=== PATIENT | male | born 1995 | race Caucasian/White ===

== ENCOUNTER 2024-07-26 05:20 | Inpatient (IN) | payer SELFPAY ==
[2024-07-26] VITALS (18 sets, daily range): BP systolic 97–136; BP diastolic 51–97; PULSE 97–120; RESP 13–30; TEMP 36.6–37.4; O2SAT 97–100; BMI 24.3
--- NOTE | 2024-07-26 07:05 | RAD_ITS ---
INDICATION: DYSPNEA EXAMINATION/TECHNIQUE: X-RAY - XR Chest 1 View AP portable. 7:01 AM COMPARISON: No relevant prior comparison study available FINDINGS: LINES/DEVICES: None. LUNGS: No consolidation. No pneumothorax. MEDIASTINUM: Unremarkable. CARDIAC SILHOUETTE: Not enlarged. BONES AND SOFT TISSUES: No acute abnormalities. RAD/Chest 1 View IMPRESSION: No evidence of active intrathoracic disease. Electronically Signed: Wanda Maki MD at 7:53 EST ,
--- NOTE | 2024-07-26 07:38 | HP.PCM.HOS_ITS ---
HPI - General General Date of Admission: 07/26/24 Date of Service: 07/26/24 Chief Complaint: Vomiting, abdominal pain, DKA HPI Narrative MONAE GARCÍA, is a 29 M came to ED with vomiting for 3 days and also abdominal pain for some time today. I could not get history from himself as patient had gotten Ativan for agitation and he is somnolent and hardly opens eyes. As per ED physician, he ran out of the insulin 3 weeks ago. Then started vomiting probably bilious as greenish stain on the gown. He was also very irritable and pulled out his IV line on the left forearm therefore he got Ativan 1 mg. Currently he is getting IV fluid normal saline. When patient came to ED there was downtime therefore handwritten papers were reviewed Vitals checked, heart rate 123/min, RR 30/min, pulse ox 100%, weight 79.2 kg, height 6'.1 Labs reviewed and discussed in assessment plan. Social history, family history could not be obtained because patient is somnolent [facility] Medical History (Updated 07/26/24 @ 07:[address] Basil Escobar MD) Type 1 diabetes ROS ROS Narrative 14 system ROS unobtainable as patient is encephalopathic after getting Ativan Review of Systems ROS Unobtainable: due to encephalopathy Vital Signs Vital Signs Vital Signs: General: Somnolent, irritable, few words that he is thirsty HEENT: Atraumatic, eyes closed, normocephalic Oral: Oral mucosa very dry. No Gingival or Mucosal Lesions/ Ulcerations Neck: supple, No JVD, Negative Carotid Bruits Chest wall/Lungs: Air entry diminished in bilateral lung bases. No crepitation /rhonchi Cardiovascular: Sinus tachycardia, Normal S1, Normal S2, No M/G/R Abdomen: Bowel Sounds sluggish, Soft, Non Tender, Non-Distended : No dysuria. No renal angle tenderness. No suprapubic tenderness. Extremities: No edema, Capillary Refill Less than 3 Seconds Skin: No rashes, No breakdown Musculoskeletal: No Tenderness to Palpation of Joints or Extremities Neurological: Neuroexam unobtainable DTR 2+/4. Psych/Mental Status: Somnolent Assessment & Plan Assessment/Plan (1) DKA (diabetic ketoacidosis): (2) Type 1 diabetes: PLAN: Plan This is a 29-year-old gentleman who is being admitted for management of DKA 1. DKA with history of type 1 diabetes mellitus: Patient is being admitted in ICU. Labs reviewed. Anion gap 32, bicarb 8. IV fluid normal saline as per DKA protocol. Insulin drip continue. Managed the Accu-Chek before meals and at bedtime with Humalog sliding scale coverage and hypoglycemia protocol. Titration as per DKA protocol/nomogram. Monitor intake and output. BMP q. 4 hourly. 2. High anion gap metabolic acidosis due to DKA: VBG was done. 6.9 //105. Bicarb in BMP 8. Repeat ABG ordered to see actual pH and whether he needs bicarb drip. Serum acetone large. EtOH less than 3. 3. Hyperkalemia due to DKA: Potassium 6.1. Repeat BMP 4. Hypertonic hypovolemic hyponatremia: Patient is very dehydrated. Sodium 128 due to high blood sugar, glucose in BMP was 914. IV fluid rehydration. 5. Kidney dysfunction suspected ZAHIDA: BUN/creatinine 46/2.97. Calcium 9.7. No previous BUNs/creatinine available. IV fluid rehydration. DVT prophylaxis, moderate risk due to severity of illness DKA: Lovenox 40 mg subcu daily CODE STATUS unverified Charges/Coding Visit Charges Inpatient E&M: 68322 Init Hosp L3
--- NOTE | 2024-07-26 07:38 | EKG12_ITS ---
Test Reason : DKA Blood Pressure : */* mmHG Vent. Rate : 122 BPM Atrial Rate : 122 BPM P-R Int : 142 ms QRS Dur : 120 ms QT Int : 332 ms P-R-T Axes : 71 89 63 degrees QTcB Int : 473 ms Sinus tachycardia Non-specific intra-ventricular conduction delay Borderline ECG Confirmed by Thang Mathew ([id number]), school photograph editor SHERRY PATIÑO ([id number]) on 07/27/2024 11:09:06 AM Referred By: Confirmed By: Thang Mathew
--- NOTE | 2024-07-26 07:41 | EX.ED.DYSGE1 ---
HPI History of Present Illness Informant: patient Narrative Narrative: 29-year-old type I diabetic presenting to the emergency room with vomiting and abdominal pain. Patient states that about a week ago he ran out of his insulin. He states he has a small vial that he has been using sparingly. About 3 days ago he began to have vomiting and abdominal spasms on the left upper abdomen. No reported fevers. He states that he was in DKA earlier this year was admitted to [facility] Medical History (Updated 07/26/24 @ 07:[address] Eloy Allen, DO) Type 1 diabetes ROS ROS ED Constitutional Constitutional ED: Reports sweats; Denies chills or weight loss Eyes Eyes: Denies change in vision or diplopia ENT ENT ED: Denies ear pain, rhinorrhea or sore throat Cardiovascular Cardiovascular: Reports racing heartbeat; Denies chest pain, orthopnea or palpitations Respiratory/Chest Respiratory/Chest: Reports dyspnea; Denies cough or orthopnea Gastrointestinal Gastrointestinal: Reports abdominal pain, nausea and vomiting; Denies diarrhea Genitourinary Genitourinary ED: Denies dysuria, hematuria or urinary frequency Musculoskeletal Musculoskeletal: Denies arthralgias or myalgias Integumentary Denies abscess or rash Neurologic Neurologic: Denies headache(s) or weakness Psychiatric Psychiatric: Denies anxiety, depression, suicidal ideation or suicidal thoughts Endocrine Endocrinology: Denies polydipsia, polyphagia or polyuria Allergic/Immunologic Allergic/Immunologic ED: Denies mouth swelling, tongue swelling or urticaria EXAM Physical Exam Const Positive well nourished and well developed General Appearance ED: well developed HEENT Reports normocephalic, head/scalp atraumatic and dry mucous membranes Mouth ED: Yes dry mucous membranes Mouth: dry mucous membranes Eyes PERRL and EOMs intact bilaterally Neck no lymphadenopathy, supple and no JVD Resp clear to auscultation bilaterally Resp Narrative: Patient has noted to be tachypneic Cardio regular rate, regular rhythm and no murmurs Rate: tachycardic GI Inspection: Negative for abdominal distention Auscultation: normoactive bowel sounds Palpation: soft, tender epigastric and LUQ and guarding; Negative for rebound tenderness present Back/Spine no CVA tenderness and normal ROM Extremity normal to inspection General Extremety ED: Negative for edema General Extremity: Negative for edema Neuro oriented x3 and CN's II-XII intact bilaterally Sensorium / Orientation: alert Motor Exam: strength 5/5 throughout Psych mental status grossly normal Mood & Affect: Negative for depressed or tearful Skin no rashes or lesions noted and no wounds MDM MDM MDM Narrative Medical decision making narrative: Differential diagnosis includes but not limited to is DKA dehydration electrolyte abnormality anemia septicemia/bacteremia kidney dysfunction cardiac dysrhythmia Patient's EKG is a sinus tachycardia at a rate of 122 bpm. My independent interpretation of the chest x-ray is no acute process. A VBG was obtained which shows a pH of 6.993 bicarbonate of 5.4 PaCO2 24 PaO2 105.4. Potassium 6.1 sodium 128 chloride 88 CO2 of 8 glucose 914. White count 29.09 hemoglobin 16.6 platelet count of 532 large acetone on blood examination. Lipase is 93 creatinine 2.97 with a BUN of 46. Patient received a total of 3 L IV fluid boluses followed by starting of an insulin drip. I am going to speak with the hospitalist regarding admission History & Record Review Discussion w/independent historian: Patient Critical Care Time Critical Care Time: Yes Critical care time (excluding procedures): 30-74 minutes (35 min), Including time spent:, Discussing w/Patient &/or Family/Title Agent, Discussing w/Consultants, Arranging Admission or Transfer and Performing Direct Patient Care at Bedside Discharge Plan Dx/Rx/DC Orders Clinical Impression: DKA (diabetic ketoacidosis), ZAHIDA (acute kidney injury), Abdominal pain, Acute dehydration Disposition Disposition: Acute Care [facility]
[2024-07-26 08:04] LABS: Absolute Lymphocyte Count 1.35 X10^3/uL (0.83-4.51); Absolute Neutrophil Count 25.2 X10^3/uL (2.0-7.7); Basophil# 0.23 X10^3/uL; Basophil% 0.8 % (0-1); Eosinophil# 0.05 X10^3/uL; Eosinophils% 0.2 % (0-5); Hematocrit 51.2 % (40-54); Hemoglobin 16.7 g/dL (13.0-16.5); Lymphocyte # 1.35 X10^3/ul (0.83-4.51); Lymphocyte % 4.6 % (19-41); Mean Corp Hgb Conc 32.6 g/dL (32-36); Mean Corpuscular Hgb 29.9 pg (27.0-32.0); Mean Corpuscular Volume 91.6 fL (80-94); Mean Platelet Vol. 10.2 fl (6.2-12.0); Monocyte# 1.94 X10^3/uL; Monocyte% 6.6 % (0-10); NRBC Flagged by Analyzer 0 % (0-5); Neutrophil # 25.19 X10^3/uL (2.7-7.7); Neutrophil % 86.1 % (47-70); POSITIVE DIFFERENTIAL YES; Platelet Count 533 K/mm3 (150-450); RBC Distribution Width CV 12.1 % (11.6-14.6); RBC Distribution Width SD 40.8 fl (35.1-43.9); Red Blood Count 5.59 M/mm3 (4.6-6.2); White Blood Count 29.3 K/mm3 (4.4-11.0)
[2024-07-26 08:05] LABS: Differential Indicated SCAN CRITERIA MET
[2024-07-26 08:40] LABS: Bedside Glucose > 500 mg/dL (74-106)
[2024-07-26 09:32] LABS: Base Excess -22 mmol/L (-2 to +2); Blood Gas Specimen Type ART; Mode Not entered; O2 Delivery Device Not entered; PO2 127 mmHG (75-100); SITE L Brach; SO2 98 % (95-99); Total Carbon Dioxide 8 mmol/L; pCO2 19.5 mmHg (35-45); pH 7.16 (7.35-7.45)
[2024-07-26 09:39] LABS: Glucose 830 mg/dL (74-106)
[2024-07-26 09:52] LABS: Alcohol, Blood (Medical)-Serum < 3.0 mg/dL
[2024-07-26 10:00] LABS: AST(SGOT) 19 U/L (15-37); Alanine Aminotransfer ALT/SGPT 30 U/L (16-61); Albumin, Serum 4.1 g/dL (3.2-5.0); Alkaline Phosphatase 127 U/L (45-117); Anion Gap 32 (5-15); BUN 46 mg/dL (7-18); BUN/Creat Ratio 15.5 RATIO (10-20); Bilirubin, Direct 0.19 mg/dL (0.00-0.30); Calcium,Total 9.7 mg/dL (8.5-10.1); Chloride 88 mmol/L (98-107); Cholesterol 183 mg/dL (200); Creatinine, Serum 2.97 mg/dL (0.70-1.30); EST Glomerular Filtration Rate 27 mL/min (>60); Est Glom Filt Rate - Afr Amer 33 mL/min (>60); Estimated Creatinine Clearance 40.28 ml/min; Glucose 914 mg/dL (74-106); High Density Lipoprotein 65 mg/dL; Lipase 93 U/L (13-75); Potassium 6.1 mmol/L (3.5-5.1); Protein, Total 8.1 g/dL (6.4-8.2); Sodium Level 128 mmol/L (136-145); Triglycerides 168 mg/dL; Very Low Density Lipoprotein 34 mg/dL (5-40)
[2024-07-26] MEDS: 0.9% Normal Saline (1000mL) 1,000 ML 500 ML IV (10:09)
[2024-07-26] MEDS: Insulin Lispro 100 UNIT in 0.9% Normal Saline (100mL Bag) 99 ML 7.9 UNIT CONT INF (10:24)
[2024-07-26 10:36] LABS: AST(SGOT) 18 U/L (15-37); Alanine Aminotransfer ALT/SGPT 27 U/L (16-61); Albumin, Serum 3.5 g/dL (3.2-5.0); Alkaline Phosphatase 106 U/L (45-117); Anion Gap 26 (5-15); BUN 50 mg/dL (7-18); Bilirubin, Direct 0.14 mg/dL (0.00-0.30); Calcium,Total 8.5 mg/dL (8.5-10.1); Chloride 100 mmol/L (98-107); EST Glomerular Filtration Rate 33 mL/min (>60); Est Glom Filt Rate - Afr Amer 39 mL/min (>60); Estimated Creatinine Clearance 47.85 ml/min; Globulin 3.4 g/dL (2.2-4.2); Glucose 727 mg/dL (74-106); Potassium 5.4 mmol/L (3.5-5.1); Protein, Total 6.9 g/dL (6.4-8.2); Sodium Level 134 mmol/L (136-145)
[2024-07-26 10:56] LABS: Bedside Glucose > 500 mg/dL (74-106)
[2024-07-26 10:56] LABS: Bedside Glucose > 500 mg/dL (74-106)
[2024-07-26 11:37] LABS: Magnesium 2.6 mg/dL (1.6-2.6); Phosphorus 5.6 mg/dL (2.5-4.9)
[2024-07-26 12:01] LABS: Bedside Glucose > 500 mg/dL (74-106)
[2024-07-26] MEDS: Sodium Bicarbonate 150 MEQ in Dextrose 5%-Water (1000mL Bag) 1,000 ML 250 MEQ IV (12:07)
[2024-07-26 12:19] LABS: Hemoglobin A1c 10.5 % (3.8-5.6)
[2024-07-26 12:22] LABS: Bacteria 0 SEEN /hpf (None Seen); Mucous, Urine 0 SEEN /hpf (<or=2+); Red Blood Cells-Urine 0 SEEN /hpf (0-5); Squamous Epithelial Cells - UA 0 SEEN /hpf (0-5); White Blood Cells 0 SEEN /hpf (0-5)
[2024-07-26 12:42] LABS: Osmolality, Serum 347 mOsm/KG (275-295)
[2024-07-26 12:54] LABS: Bedside Glucose 473 mg/dL (74-106)
[2024-07-26 12:56] LABS: Color, Urine Straw (Yellow); Glucose, Dipstick 1000 mg/dl (Normal); Leukocyte Esterase-Dipstick Negative /ul (Negative); Nitrite-Dipstick Negative (Negative); Occult Blood-Urine Negative /ul (Negative); Protein-Dipstick 15 mg/dl (Negative); Urine Bilirubin Dipstick Negative (Negative); Urine Clarity Clear (Clear); Urine Urobilinogen Normal (Normal)
[2024-07-26 12:57] LABS: Ketone-Dipstick 150 mg/dl (Negative)
[2024-07-26 13:55] LABS: Bedside Glucose 428 mg/dL (74-106)
[2024-07-26 14:35] LABS: Anion Gap 13 (5-15); BUN 43 mg/dL (7-18); BUN/Creat Ratio 23.1 RATIO (10-20); Calcium,Total 8.6 mg/dL (8.5-10.1); Chloride 107 mmol/L (98-107); Creatinine, Serum 1.86 mg/dL (0.70-1.30); EST Glomerular Filtration Rate 46 mL/min (>60); Est Glom Filt Rate - Afr Amer 56 mL/min (>60); Estimated Creatinine Clearance 64.32 ml/min; Glucose 459 mg/dL (74-106); Potassium 4.6 mmol/L (3.5-5.1); Sodium Level 139 mmol/L (136-145)
[2024-07-26 14:37] LABS: Blood Gas Specimen Type VEN; O2 Delivery Device Room Air; SITE Not entered; VBG BASE EXCESS -26 mmol/L (-1.0-3.5); VBG Bicarbonate 6 mmol/L (22-26); VBG PO2 105 mmHg (25-40); VBG SO2 94 % (50-70); VBG TCO2 7 mmol/L (23-33); VBG pH 6.99 (7.32-7.42)
[2024-07-26 15:00] LABS: Bedside Glucose 419 mg/dL (74-106)
[2024-07-26 16:11] LABS: Bedside Glucose 393 mg/dL (74-106)
[2024-07-26] MEDS: 0.9% Normal Saline (1000mL) 1,000 ML 250 ML IV (16:54)
[2024-07-26 17:12] LABS: Bedside Glucose 380 mg/dL (74-106)
[2024-07-26 18:05] LABS: Amphetamine Urine VISTA NEGATIVE (<1000 ng/mL); Barbiturate Urine VISTA NEGATIVE (< 200 ng/mL); Benzodiazepine Urine VISTA NEGATIVE (< 200 ng/mL); Cocaine Urine VISTA POSITIVE (< 300 ng/mL); Ecstacy Urine VISTA NEGATIVE (< 500 ng/mL); Methadone Urine VISTA NEGATIVE (< 300 ng/mL); PCP Urine VISTA NEGATIVE (< 25 ng/mL); THC Urine VISTA NEGATIVE (< 50 ng/mL); Vista UDS pH Range 4
[2024-07-26 18:17] LABS: TCA Internal Control -Neg LINE = VALID (- VALID); TCA Urine Drug Screen Negative (<1000 ng/mL)
[2024-07-26 18:18] LABS: BUP Internal Control LINE = VALID (VALID); Buprenorphine Drug Screen Negative (<10 ng/mL); OXY Internal Control LINE = VALID (VALID); Oxycodone Drug Screen Negative (<100 ng/mL)
[2024-07-26 18:26] LABS: Bedside Glucose 309 mg/dL (74-106)
[2024-07-26 18:39] LABS: Anion Gap 7 (5-15); BUN 36 mg/dL (7-18); BUN/Creat Ratio 22.5 RATIO (10-20); Calcium,Total 8.7 mg/dL (8.5-10.1); Chloride 108 mmol/L (98-107); EST Glomerular Filtration Rate 55 mL/min (>60); Est Glom Filt Rate - Afr Amer 66 mL/min (>60); Estimated Creatinine Clearance 74.77 ml/min; Glucose 351 mg/dL (74-106); Potassium 3.9 mmol/L (3.5-5.1); Sodium Level 142 mmol/L (136-145)
[2024-07-26] MEDS: Insulin Glargine-YFGN 100 UNIT/ML Pen 15 UNIT SC (19:40)
[2024-07-26 20:08] LABS: Bedside Glucose 283 mg/dL (74-106)
[2024-07-26] MEDS: KCL 20MEQ in 0.45%NS 20 MEQ/1,000 ML IV.SOLN. 125 MEQ IV (21:00)
[2024-07-26 21:15] LABS: Bedside Glucose 251 mg/dL (74-106)
[2024-07-26] MEDS: Insulin Lispro 100 UNIT/ML INSULN.PEN SC (22:56)
[2024-07-26 23:10] LABS: Bedside Glucose 224 mg/dL (74-106)
[2024-07-26 23:10] LABS: Bedside Glucose 251 mg/dL (74-106)
[2024-07-27] VITALS (12 sets, daily range): BP systolic 111–139; BP diastolic 55–97; PULSE 88–104; RESP 13–18; TEMP 36.3–37; O2SAT 96–100; BMI 24.3
[2024-07-27] MEDS: KCL 20MEQ in 0.45%NS 20 MEQ/1,000 ML IV.SOLN. 125 MEQ IV ×2 (05:21→11:55)
[2024-07-27 05:49] LABS: Anion Gap 12 (5-15); BUN 23 mg/dL (7-18); BUN/Creat Ratio 20.9 RATIO (10-20); Calcium,Total 8.6 mg/dL (8.5-10.1); Chloride 105 mmol/L (98-107); EST Glomerular Filtration Rate 84 mL/min (>60); Est Glom Filt Rate - Afr Amer 102 mL/min (>60); Estimated Creatinine Clearance 108.76 ml/min; Glucose 275 mg/dL (74-106); Potassium 4.1 mmol/L (3.5-5.1); Sodium Level 140 mmol/L (136-145)
[2024-07-27 06:29] LABS: Absolute Lymphocyte Count 0.52 X10^3/uL (0.83-4.51); Absolute Neutrophil Count 15.6 X10^3/uL (2.0-7.7); Basophil# 0.03 X10^3/uL; Basophil% 0.2 % (0-1); Eosinophil# 0.04 X10^3/uL; Eosinophils% 0.2 % (0-5); Hematocrit 29.7 % (40-54); Lymphocyte # 0.52 X10^3/ul (0.83-4.51); Mean Corp Hgb Conc 30.3 g/dL (32-36); Mean Corpuscular Hgb 25.5 pg (27.0-32.0); Mean Corpuscular Volume 84.1 fL (80-94); Mean Platelet Vol. 10.1 fl (6.2-12.0); Monocyte# 0.82 X10^3/uL; Monocyte% 4.8 % (0-10); NRBC Flagged by Analyzer 0 % (0-5); Neutrophil # 15.63 X10^3/uL (2.7-7.7); Neutrophil % 91.4 % (47-70); POSITIVE DIFFERENTIAL YES; Platelet Count 236 K/mm3 (150-450); RBC Distribution Width CV 13.6 % (11.6-14.6); RBC Distribution Width SD 41.7 fl (35.1-43.9); Red Blood Count 3.53 M/mm3 (4.6-6.2); White Blood Count 17.1 K/mm3 (4.4-11.0)
[2024-07-27] MEDS: Insulin Lispro 100 UNIT/ML INSULN.PEN SC ×3 (06:46→16:47)
[2024-07-27 07:05] LABS: Bedside Glucose 264 mg/dL (74-106)
[2024-07-27 07:56] LABS: Bedside Glucose > 500 mg/dL (74-106)
[2024-07-27 07:59] LABS: Bedside Glucose > 500 mg/dL (74-106)
--- NOTE | 2024-07-27 09:25 | PCM.PN.HOSP ---
Reason for Visit Reason for Visit: Diagnoses Type 1 diabetes mellitus without complications (07/26/24) Type 2 diabetes mellitus with ketoacidosis without coma (07/26/24) Objective Data Objective Data Vital Signs: Vital Signs Temp Pulse Resp BP Pulse Ox O2 Del Method 98.1 F 96 16 119/55 L 97 Room Air 07/27/24 06:00 07/27/24 08:00 07/27/24 06:00 07/27/24 06:00 07/27/24 06:00 07/27/24 06:00 Oxygen Delivery Method Room Air Weight: 179 lb 10.828 oz Body Mass Index (BMI) 24.3 Intake & Output: Intake and Output for Last 24 Hours 07/25/24 07/26/24 07/27/24 23:59 23:59 23:59 Intake Total 3190.07 / 3190.07 1400 / 1400 Output Total 1325 / 1325 Balance 1865.07 / 1865.07 1400 / 1400 Lab / Micro Data 07/27/24 05:19 07/27/24 05:19 Labs: Laboratory Results - last 24 hr 07/26/24 05:21: POC Glucose > 500 H* 07/26/24 05:29: Sodium 128 L, Potassium 6.1 H*, Chloride 88 L, Carbon Dioxide 8.0 L*, Anion Gap 32 H, BUN 46 H, Creatinine 2.97 H, Estim Creat Clear Calc 40.28, Est GFR (MDRD) Af Amer 33 L, Est GFR (MDRD) Non-Af 27 L, BUN/Creatinine Ratio 15.5, Glucose 914 H*, Hemoglobin A1c 10.5 H, Calcium 9.7, Phosphorus 5.6 H, Magnesium 2.6, Total Bilirubin 0.60, Direct Bilirubin 0.19, AST 19, ALT 30, Alkaline Phosphatase 127 H, Total Protein 8.1, Albumin 4.1, Globulin 4.0, Triglycerides 168, Cholesterol 183, LDL Cholesterol 84, VLDL Cholesterol 34, HDL Cholesterol 65, Lipase 93 H, Ethyl Alcohol < 3.0, Acetone Level LARGE H 07/26/24 06:43: POC Glucose > 500 H* 07/26/24 08:24: Glucose 830 H* 07/26/24 09:31: POC Glucose > 500 H* 07/26/24 09:35: Sodium 134 L, Potassium 5.4 H, Chloride 100, Carbon Dioxide 8.0 L*, Anion Gap 26 H, BUN 50 H, Creatinine 2.50 H, Estim Creat Clear Calc 47.85, Est GFR (MDRD) Af Amer 39 L, Est GFR (MDRD) Non-Af 33 L, BUN/Creatinine Ratio 20.0, Glucose 727 H*, Calcium 8.5, Total Bilirubin 0.50, Direct Bilirubin 0.14, AST 18, ALT 27, Alkaline Phosphatase 106, Total Protein 6.9, Albumin 3.5, Globulin 3.4 07/26/24 10:29: POC Glucose > 500 H* 07/26/24 11:43: POC Glucose > 500 H* 07/26/24 11:45: Serum Osmolality 347 H, Urine Color Straw, Urine Clarity Clear, Urine pH 5.0, Ur Specific [place] 1.020, Urine Protein 15 H, Urine Glucose (UA) 1000 H, Urine Ketones 150 A*, Urine Occult Blood Negative, Urine Nitrite Negative, Urine Bilirubin Negative, Urine Urobilinogen Normal, Ur Leukocyte Esterase Negative, Urine RBC 0 SEEN, Urine WBC 0 SEEN, Ur Squamous Epith Cells 0 SEEN, Urine Bacteria 0 SEEN, Urine Mucus 0 SEEN, Acetone Level Cancelled 07/26/24 12:31: POC Glucose 473 H* 07/26/24 13:36: POC Glucose 428 H 07/26/24 13:45: Sodium 139, Potassium 4.6, Chloride 107, Carbon Dioxide 19.0 L, Anion Gap 13, BUN 43 H, Creatinine 1.86 H, Estim Creat Clear Calc 64.32, Est GFR (MDRD) Af Amer 56 L, Est GFR (MDRD) Non-Af 46 L, BUN/Creatinine Ratio 23.1 H, Glucose 459 H*, Calcium 8.6 07/26/24 14:39: POC Glucose 419 H 07/26/24 15:53: POC Glucose 393 H 07/26/24 16:51: POC Glucose 380 H 07/26/24 17:20: Urine Opiates Screen NEGATIVE, Ur Buprenorphine Scrn Negative, Ur Oxycodone Screen Negative, Urine Methadone Screen NEGATIVE, Ur Barbiturates Screen NEGATIVE, Tricyclics Screen Negative, Ur Phencyclidine Scrn NEGATIVE, Ur Amphetamines Screen NEGATIVE, MDMA (Ecstasy) Screen NEGATIVE, U Benzodiazepines Scrn NEGATIVE, Urine Cocaine Screen POSITIVE H, U Cannabinoids Screen NEGATIVE, Ur Drug Screen Comment 07/26/24 18:00: Sodium 142, Potassium 3.9, Chloride 108 H, Carbon Dioxide 27.0, Anion Gap 7, BUN 36 H, Creatinine 1.60 H, Estim Creat Clear Calc 74.77, Est GFR (MDRD) Af Amer 66, Est GFR (MDRD) Non-Af 55 L, BUN/Creatinine Ratio 22.5 H, Glucose 351 H, Calcium 8.7 07/26/24 18:01: POC Glucose 309 H 07/26/24 19:35: POC Glucose 283 H 07/26/24 20:31: POC Glucose 251 H 07/26/24 21:32: POC Glucose 251 H 07/26/24 22:51: POC Glucose 224 H 07/27/24 05:19: WBC 17.1 H, RBC 3.53 L, Hgb 9.0 L, Hct 29.7 L, MCV 84.1 D, MCH 25.5 L, MCHC 30.3 L D, RDW Std Deviation 41.7, RDW Coeff of Willam 13.6, Plt Count 236, MPV 10.1, Immature Gran % (Auto) 0.400, Neut % (Auto) 91.4 H, Lymph % (Auto) 3.0 L, [place] % (Auto) 4.8, Eos % (Auto) 0.2, Baso % (Auto) 0.2, Absolute Neuts (auto) 15.6 H, Absolute Lymphs (auto) 0.52 L, Nucleated RBC % 0, Sodium 140, Potassium 4.1, Chloride 105, Carbon Dioxide 23.0, Anion Gap 12, BUN 23 H, Creatinine 1.10, Estim Creat Clear Calc 108.76, Est GFR (MDRD) Af Amer 102, Est GFR (MDRD) Non-Af 84, BUN/Creatinine Ratio 20.9 H, Glucose 275 H, Hemoglobin A1c 11.0 H, Calcium 8.6 07/27/24 06:44: POC Glucose 264 H ABG Data ABG results: ABG 07/26/24 07/26/24 06:12 09:27 Specimen Type CHRISTINA ART Sample Site Not entered L Brach pH 7.16 L* Bicarbonate Actual 7.0 L Total CO2 8 Base Excess -22 L O2 Saturation 98 O2 % 21.0 ABG pCO2 19.5 L ABG pO2 127 H VBG pH 6.99 L* VBG pO2 105 H VBG HCO3 6 L VBG Total CO2 7 L VBG O2 Sat (Calc) 94 H VBG Base Excess -26 L POC Mix VBG pCO2 Pt Tmp 24.0 L O2 Delivery Device Room Air Not entered Vent Mode Not entered Crit Call To/Read Back Yes Yes Blood Gas Notified Whom Dr. Tiffany irwin Blood Gas Notified Time 06:14:15 09:28:56 Physical Exam Narrative Seen and examined Anion gap closed x 2. Patient states no specific complaint but is still sleepy and lethargic. He states he is relaxing. Physical exam General: Awake, oriented x 3. Lethargic. Fatigue HEENT: Atraumatic, eyes closed, normocephalic Oral: Oral mucosa very dry. No Gingival or Mucosal Lesions/ Ulcerations Neck: supple, No JVD, Negative Carotid Bruits Chest wall/Lungs: Air entry diminished in bilateral lung bases. No crepitation/rhonchi Cardiovascular: Sinus tachycardia, Normal S1, Normal S2, No M/G/R Abdomen: Bowel Sounds sluggish, Soft, Non Tender, Non-Distended : No dysuria. No renal angle tenderness. No suprapubic tenderness. Extremities: No edema, Capillary Refill Less than 3 Seconds Skin: No rashes, No breakdown Musculoskeletal: No Tenderness to Palpation of Joints or Extremities Neurological: Cranial nerves II through XII are intact. No focal neurological deficit Psych/Mental Status: flat affect Assessment & Plan Assessment/Plan (1) DKA (diabetic ketoacidosis): (2) Type 1 diabetes: PLAN: Plan This is a 29-year-old gentleman who is being admitted for management of DKA 1. DKA with history of type 1 diabetes mellitus: Patient is being admitted in ICU. Labs reviewed. Anion gap 32, bicarb 8. IV fluid normal saline as per DKA protocol. Insulin drip continue. Managed the Accu-Chek before meals and at bedtime with Humalog sliding scale coverage and hypoglycemia protocol. Titration as per DKA protocol/nomogram. Monitor intake and output. BMP q. 4 hourly. 12/5: Yesterday because of very severe metabolic acidosis, bicarb 8, patient was treated with bicarb drip for brief period Anion gap x 2 closed yesterday. After overlap of 4 hours of Lantus , IV insulin drip was discontinued. Electrolytes are in normal range. Phosphorus 5.6. Magnesium 2.6. Glucose 275. A1c 11%. Leukocytosis improving but patient still looks dehydrated. Continue IV fluid. Transfer to [facility] floor. 2. High anion gap metabolic acidosis due to DKA: VBG was done. 6.9 93/24/105. Bicarb in BMP 8. Repeat ABG ordered to see actual pH and whether he needs bicarb drip. Serum acetone large. EtOH less than 3. 3. Hyperkalemia due to DKA: Potassium 6.1. 07/27: Hyperkalemia resolved. Repeat potassium 4.1. 4. Hypertonic hypovolemic hyponatremia: Patient is very dehydrated. Sodium 128 due to high blood sugar, glucose in [facility] was 914. IV fluid rehydration. 07/27: Serum sodium 149. 12: BUNs/creatinine 23/1.1. 5. Kidney dysfunction suspected ZAHIDA: BUN/creatinine 46/2.97. Calcium 9.7. No previous BUNs/creatinine available. IV fluid rehydration. DVT prophylaxis, moderate risk due to severity of illness DKA: Lovenox 40 mg subcu daily CODE STATUS unverified Charges/Coding Visit Charges Inpatient E&M: 27298 Subs Hosp L3
[2024-07-27] MEDS: Insulin Glargine-YFGN 100 UNIT/ML Pen 15 UNIT SC (11:26)
[2024-07-27] MEDS: Insulin Lispro 100 UNIT/ML INSULN.PEN 10 UNIT SC ×2 (11:26→16:48)
--- NOTE | 2024-07-27 11:26 | CASEMGMT ---
GARO CHAUDHARI Assessment Face to Face with patient for initial transition planning/care coordination assessment. GARO CHAUDHARI introduced self and role at [facility], pt voices understanding. Pt is A&Ox4 and is resting comfortably in bed and is calm. Pt SO at bedside. Care providers, pharmacy, and demographics verified. Admitting dx: DKA LACE Strata: 1 PCP: No PCP. Provider list given Specialists: Denies. Pt advised to f/u with an Cut Order Hand to help manage his DM. Information provided and the pt states that he will call to get established. Preferred Pharmacy: [facility] Insurance: SP. Day has seen the pt and the pt is looking into applying for [facility] Prescription Benefit: None at this time. Educated about free services such as Good Rx LNOK: Ameena Davidsim (SO) Living Arrangements: Pt lives with his SO in a single story home with 4 steps to enter ADLs/IADLs: Ind Transportation: Self, SO DME: Pt reports that he has a functioning BGM with sufficient supplies. Pt states that he takes insulin shots. States that he has everything that he needs to better manage his DM. HHC/SNF: Denies Pt?s goal: Return Home Plan: Anticipate DC home with SO without any additional needs once medically ready. Pt denies further needs at this time. Oc Taylor RN, CM
[2024-07-27 11:59] LABS: Bedside Glucose 374 mg/dL (74-106)
[2024-07-27 14:40] LABS: Pathologist Review Reviewed
--- NOTE | 2024-07-27 16:06 | CASEMGMT ---
Social Work Per Barb from [facility], pt will not qualify for Medicaid. SW met with pt and provided financial resources (Prescription assistance, [employer], [employer], [employer] and Francesca Lawson.) Pt accepting of information and denies any other concerns at this time. ANDRÉS Sands
[2024-07-27 16:58] LABS: Bedside Glucose 267 mg/dL (74-106)
[2024-07-27] MEDS: Glucerna Shake 120 ML LIQUID PO (16:58)
--- NOTE | 2024-07-27 17:24 | PCM.DC.SUM ---
Providers Date of Admission: 07/26/24 Date of Discharge: 07/27/24 Primary Care Physician: No Primary Care Phys Reason For Visit: DKA Diagnosis Discharge Diagnosis (1) DKA (diabetic ketoacidosis): Status: Acute Code(s): E11.10 - Type 2 diabetes mellitus with ketoacidosis without coma (2) Type 1 diabetes: Status: Chronic Code(s): E10.9 - Type 1 diabetes mellitus without complications Plan This is a 29-year-old gentleman who is being admitted for management of DKA 1. DKA with history of type 1 diabetes mellitus: Patient is being admitted in ICU. Labs reviewed. Anion gap 32, bicarb 8. IV fluid normal saline as per DKA protocol. Insulin drip continue. Managed the Accu-Chek before meals and at bedtime with Humalog sliding scale coverage and hypoglycemia protocol. Titration as per DKA protocol/nomogram. Monitor intake and output. BMP q. 4 hourly. 07/27: Yesterday because of very severe metabolic acidosis, bicarb 8, patient was treated with bicarb drip for brief period Anion gap x 2 closed yesterday. After overlap of 4 hours of Lantus , IV insulin drip was discontinued. Electrolytes are in normal range. Phosphorus 5.6. Magnesium 2.6. Glucose 275. A1c 11%. Leukocytosis improving but patient still looks dehydrated. Continue IV fluid. Transfer to [facility] floor. 07/27: Afternoon: Patient's RN called that patient wants to sign AMA. Advised to stay as patient is still lethargic. Needs metabolic abnormality correction patient takes few days although anion gap x 2 closed. He signed AMA. 2. High anion gap metabolic acidosis due to DKA: VBG was done. 6.9 /105. Bicarb in BMP 8. Repeat ABG ordered to see actual pH and whether he needs bicarb drip. Serum acetone large. EtOH less than 3. 3. Hyperkalemia due to DKA: Potassium 6.1. 07/27: Hyperkalemia resolved. Repeat potassium 4.1. 4. Hypertonic hypovolemic hyponatremia: Patient is very dehydrated. Sodium 128 due to high blood sugar, glucose in BMP was 914. IV fluid rehydration. 07/27: Serum sodium 149. 07/27: BUNs/creatinine 23/1.1. 5. Kidney dysfunction suspected ZAHIDA: BUN/creatinine 46/2.97. Calcium 9.7. No previous BUNs/creatinine available. IV fluid rehydration. DVT prophylaxis, moderate risk due to severity of illness DKA: Lovenox 40 mg subcu daily CODE STATUS unverified Physical Exam Narrative Seen and examined in the morning Weight / BMI Weight Weight: 179 lb 10.828 oz Body Mass Index (BMI) 24.3 ABG / Lab / Microbiology Data 07/27/24 05:19 07/27/24 05:19 Laboratory: Laboratory Results - last 24 hr 07/26/24 05:21: POC Glucose > 500 H* 07/26/24 05:29: Diff Path Review Reviewed 07/26/24 06:43: POC Glucose > 500 H* 07/26/24 17:20: Urine Opiates Screen NEGATIVE, Ur Buprenorphine Scrn Negative, Ur Oxycodone Screen Negative, Urine Methadone Screen NEGATIVE, Ur Barbiturates Screen NEGATIVE, Tricyclics Screen Negative, Ur Phencyclidine Scrn NEGATIVE, Ur Amphetamines Screen NEGATIVE, MDMA (Ecstasy) Screen NEGATIVE, U Benzodiazepines Scrn NEGATIVE, Urine Cocaine Screen POSITIVE H, U Cannabinoids Screen NEGATIVE, Ur Drug Screen Comment 07/26/24 18:00: Sodium 142, Potassium 3.9, Chloride 108 H, Carbon Dioxide 27.0, Anion Gap 7, BUN 36 H, Creatinine 1.60 H, Estim Creat Clear Calc 74.77, Est GFR (MDRD) Af Amer 66, Est GFR (MDRD) Non-Af 55 L, BUN/Creatinine Ratio 22.5 H, Glucose 351 H, Calcium 8.7 07/26/24 18:01: POC Glucose 309 H 07/26/24 19:35: POC Glucose 283 H 07/26/24 20:31: POC Glucose 251 H 07/26/24 21:32: POC Glucose 251 H 07/26/24 22:51: POC Glucose 224 H 07/27/24 05:19: WBC 17.1 H, RBC 3.53 L, Hgb 9.0 L, Hct 29.7 L, MCV 84.1 D, MCH 25.5 L, MCHC 30.3 L D, RDW Std Deviation 41.7, RDW Coeff of Willam 13.6, Plt Count 236, MPV 10.1, Immature Gran % (Auto) 0.400, Neut % (Auto) 91.4 H, Lymph % (Auto) 3.0 L, [place] % (Auto) 4.8, Eos % (Auto) 0.2, Baso % (Auto) 0.2, Absolute Neuts (auto) 15.6 H, Absolute Lymphs (auto) 0.52 L, Nucleated RBC % 0, Sodium 140, Potassium 4.1, Chloride 105, Carbon Dioxide 23.0, Anion Gap 12, BUN 23 H, Creatinine 1.10, Estim Creat Clear Calc 108.76, Est GFR (MDRD) Af Amer 102, Est GFR (MDRD) Non-Af 84, BUN/Creatinine Ratio 20.9 H, Glucose 275 H, Hemoglobin A1c 11.0 H, Calcium 8.6 07/27/24 06:44: POC Glucose 264 H 07/27/24 11:24: POC Glucose 374 H 07/27/24 16:36: POC Glucose 267 H D/C Instructions DC O2, CPAP, BIPAP Needs Additional Home O2 Discharge instructions: No DC home with Oxygen: No Meaningful Use Info Meaningful Use Meaningful Use Diagnoses (Choose all that apply): None applicable Ischemic Stroke Statin Dosing Therapy Reference: STATIN DOSE THERAPY REFERENCE: * Patients > 75 years receive moderate or high dose statin therapy. * Patients 75 years or YOUNGER should receive HIGH intensity statin dose unless contraindicated. You will be required to document reason for non-treatment if statin daily dose does not meet guidelines. HIGH DOSE STATIN THERAPY DAILY Atorvastatin > than or = to 40 mg Rosuvastatin > than or = to 20 mg Amlodipine + Atorvastatin > than or = to 2.5/40 mg Ezetimibe + Simvastatin 10/80 mg Simvastatin 80mg Discharge Plan Admission Admit Date/Time: 07/26/24 07:29 Attending Provider: Basil Escobar Primary Care Provider: Care Physician,Nelsy Primary Discharge Orders/Prescriptions Referrals / Follow Up: Care Physician,No Primary [Primary Care Provider] - Charges/Coding Visit Charges Inpatient E&M: 29802 Disch Hosp >30min
== END 2024-07-27 17:25 | disposition left against medical advice (07) | DRG 638 ==
LOC: ED 16:58 → ICU 16:58
PROVIDERS: Admitting Provider Internal Medicine; Emergency Provider Emergency Medicine; Visit Provider Internal Medicine
DX: E10.10 Type 1 diabetes mellitus with ketoacidosis without coma (principal); E87.1 Hypo-osmolality and hyponatremia; N17.9 Acute kidney failure, unspecified; E87.5 Hyperkalemia; Z79.4 Long term (current) use of insulin; E86.0 Dehydration
CPT/HCPCS: 36600; 71045; 80048; 80061; 80076; 80307; 80365; 81001; 82009; 82077; 82803; 82947; 82962; 83036; 83690; 83735; 83930; 84100; 85025; 93005; J7030; A4216; G0480; J2405

== ENCOUNTER 2024-11-04 21:21 | Inpatient (IN) | payer SELFPAY ==
[2024-11-04 21:23] VITALS: BP 151/99; PULSE 114; RESP 24; TEMP 36.2; O2SAT 100
[2024-11-04 21:31] VITALS: BMI 23.3
--- NOTE | 2024-11-04 21:42 | EDS_ITS ---
HPI History of Present Illness Chief Complaint: Hyperglycemia Informant: parent and spouse/S.O. Onset/Context/Timing Onset: Days Context: Gradual Onset Timing: Continuous Current Severity: Moderate Maximum Severity: Moderate Narrative Narrative: 29-year-old male history of insulin-dependent diabetes the last 5 years. Currently has no primary care physician. Said the last several days his blood sugars have been elevated over 500 and he is had nausea vomiting and chronic diarrhea. Believes he is in DKA again. Denies any fever. No dysuria. Prior similar symptoms: Yes Recent Illness/Hospitalization: No PFSH PFS Medical History Pyloric stenosis Type 1 diabetes Home Medications ?Medication ?Instructions ?Recorded ?Last Taken ?Type insulin lispro 100 unit/mL 1 sliding scale dose subcut 11/04/24 Unknown History subcutaneous pen Allergy/AdvReac Type Severity Reaction Status Date / Time No Known Allergies Allergy Verified 11/04/24 21:23 Family History no significant family his Social History Smoking Status: Current every day smoker tobacco type: cigarettes ROS ROS ED ROS Narrative Nausea, vomiting and diarrhea. Constitutional Constitutional ED: Denies chills or fever(s) ENT ENT ED: Denies ear pain Cardiovascular Cardiovascular: Denies chest pain Respiratory/Chest Respiratory/Chest: Denies cough or dyspnea Gastrointestinal Gastrointestinal: Reports diarrhea, nausea and vomiting; Denies constipation or melena Genitourinary Genitourinary ED: Denies dysuria or hematuria Musculoskeletal Musculoskeletal: Denies arthralgias or back pain Integumentary Denies abscess Neurologic Neurologic: Denies headache(s) Psychiatric Psychiatric: Denies anxiety or depression Endocrine Endocrinology: Denies cold intolerance Hematologic/Lymphatic Hematologic/Lymphatic: Reports none Allergic/Immunologic Allergic/Immunologic ED: Denies mouth swelling, tongue swelling or urticaria EXAM Physical Exam Narrative Exam Narrative: 28-year-old male lying in bed. Vital signs are stable he is tachycardic 114. Afebrile. Pulse ox 100%. Significant other at bedside. H EENT exam pupils round reactive light. No facial droop. Normal speech. Dry mucous membranes. Neck nontender no lymphadenopathy. Heart tachycardic 115 no murmur. Chest wall ribs nontender. Lungs clear to auscultation bilaterally. Heart abdomen soft nondistended normal bowel sounds without peritoneal signs. No hernia or mass. No obstruction. Moving all 4 extremities. Nontender no edema. No rashes. Normal strength. Normal range of motion. Back nontender. Neurologically is awake and alert answering questions following commands. No focal motor deficits. Const Vital Signs: 11/04/24 21:23 11/04/24 21:31 11/04/24 22:21 Temperature 97.1 F L Temperature Source Temporal Pulse Rate 114 H 119 H Respiratory Rate 24 H 22 H Respiratory Pattern Tachypnea Blood Pressure 151/99 H 123/67 H Blood Pressure Mean 116 85 Pulse Ox 100 100 Oxygen Delivery Method Room Air Room Air Positive well nourished and well developed; Negative for obese, cachectic, contractures or unkempt General Appearance ED: well developed; Negative for unkempt, cachectic, contractures, cyanotic, diaphoretic, NAD or pallor Nutritional Appearance: Negative for cachectic or obese HEENT Reports dry mucous membranes Negative for trauma or tenderness Mouth ED: Yes dry mucous membranes Mouth: dry mucous membranes Eyes PERRL and EOMs intact bilaterally General Eye ED: Negative for pale conjunctiva or scleral icterus Neck no lymphadenopathy, supple and no JVD General: Negative for tenderness Chest Wall inspection of chest normal and palpation of chest normal Resp normal respiratory effort and clear to auscultation bilaterally Effort and Inspection: Negative for retractions Auscultation: Negative for rales, rhonchi, wheezes or diminished lung sounds Cardio regular rhythm, S1 normal heart sound, S2 normal heart sound and no murmurs; Negative for regular rate Rate: tachycardic GI normal to inspection, nondistended, normoactive bowel sounds, non-tender, non- distended and no masses Auscultation: normoactive bowel sounds Palpation: soft; Negative for tender, guarding, mass or rebound tenderness present Back/Spine no CVA tenderness General Back: Negative for CVA tenderness Cervical Spine: Negative for cervical spine tenderness Thoracic Spine / Upper Back: Negative for thoracic spinal tenderness or paraspinal muscle tenderness Lumbar Spine / Lower Back: Negative for lumbar spinal tenderness Extremity normal to inspection General Extremety ED: Negative for edema or tenderness General Extremity: Negative for edema Neuro oriented x3 and CN's II-XII intact bilaterally Sensorium / Orientation: alert; Negative for orientation impaired, lethargic or stuporous Psych Appearance: Negative for unkempt Attitude: No agitated Mood & Affect: Negative for depressed or tearful Skin no rashes or lesions noted and no wounds General Skin Exam: Negative for jaundice or pallor Lesions: No lesion noted Rashes: No rashes noted MDM MDM MDM Narrative Medical decision making narrative: 29-year-old male history of diabetes concern for diabetic ketoacidosis. Appropriate lab workup. Including an ABG. IV fluids x 2 L Zofran. Patient is being treated with 2 large-bore IVs. He has been ordered 3 L of normal saline. Zofran x 2 for his nausea. Morphine for his pain. He will be started on DKA protocol with an insulin drip. Awaiting his chemistry panel to get him admitted to the ICU. Patient is slowly improving at 10:30 PM. IV fluids are running along with the other medications. Patient is aware he will be admitted to the ICU. History & Record Review Discussion w/independent historian: Patient and Family Additional record(s) reviewed:: Prior inpatient record, Prior outpatient record, Prior ED visit and Prior labs Lab Data Attestation: I reviewed the patient's lab results. Lab results narrative: CBC shows white count 11.1. H&H is 16 and 49. Platelets 397. Initial blood sugar greater than 500. ABG: pH is 7.055, pCO2 of 15, pO2 126, bicarb of 4.3. O2 sat 97%. Beta hydroxy butyric is 10.9. Electrolytes show potassium 5.4. CO2 is 6.6. Anion gap 37. BUN is 18 creatinine 1.46. Glucose is 629. All consistent with DKA metabolic acidosis. Urinalysis shows no infection. Positive ketones consistent with DKA. And dehydration. Labs: Laboratory Results - last 24 hr 11/04/24 11/04/24 11/04/24 21:32 21:36 22:24 WBC 11.1 H RBC 5.44 Hgb 16.3 Hct 49.6 MCV 91.2 MCH 30.0 MCHC 32.9 RDW Std Deviation 42.6 RDW Coeff of Willam 12.9 Plt Count 397 MPV 9.3 Immature Gran % (Auto) 0.600 Neut % (Auto) 78.4 H Lymph % (Auto) 11.7 L [place] % (Auto) 6.8 Eos % (Auto) 1.1 Baso % (Auto) 1.4 H Absolute Neuts (auto) 8.7 H Absolute Lymphs (auto) 1.29 Nucleated RBC % 0 Sodium 136 Potassium 5.4 H Chloride 93 L Carbon Dioxide 6.6 L* Anion Gap 37 H BUN 18 Creatinine 1.46 H Estim Creat Clear Calc 81.94 Est GFR (MDRD) Non-Af 66 BUN/Creatinine Ratio 12.3 Glucose 629 H* Calcium 9.7 b-Hydroxybutyric mmol/L 10.9 Urine Color Yellow Urine Clarity Clear Urine pH 5.0 Ur Specific [place] 1.020 Urine Protein 30 H Urine Glucose (UA) 1000 H Urine Ketones 150 A* Urine Occult Blood 10 H Urine Nitrite Negative Urine Bilirubin Negative Urine Urobilinogen Normal Ur Leukocyte Esterase Negative Urine RBC 0 SEEN Urine WBC 0 SEEN Ur Squamous Epith Cells 0 SEEN Urine Bacteria 0 SEEN Urine Mucus 0 SEEN POC Glucose > 500 H* ABG Data ABG results: ABG 11/04/24 22:05 Specimen Type ART Sample Site R Radial pH 7.06 L* Bicarbonate Actual 4.3 L Total CO2 < 5 Base Excess -26 L O2 Saturation 97 ABG pCO2 15.5 L* ABG pO2 126 H Abraham Test Positive O2 Delivery Device Not entered Vent Mode Not entered Crit Call To/Read Back Yes Rhythm Strip Rhythm Strip: Sinus Tach Rate: 110 Ectopy: None EKG Initial EKG: Attestation: I personally reviewed and interpreted this EKG as follows: Interpretation: Sinus Tachycardia Comments: Sinus tachycardia. Rate of 110. No acute signs of MT or ischemia. Critical Care Time Critical Care Time: Yes Critical care time (excluding procedures): 30-74 minutes, Including time spent:, Discussing w/Patient &/or Family/Auto Accessories Installer, Discussing w/Consultants, Arranging Admission or Transfer, Performing Direct Patient Care at Bedside and - (36 minutes.) Discharge Plan Dx/Rx/DC Orders Clinical Impression: DKA (diabetic ketoacidosis), Acute dehydration, Nausea, vomiting and diarrhea, Metabolic acidosis Disposition Disposition: [facility]
[2024-11-04] MEDS: Ondansetron 4 MG/2 ML Vial IV ×2 (21:45→22:41)
[2024-11-04] MEDS: 0.9% Normal Saline (1000mL) 1,000 ML 1000 ML IV (21:45)
[2024-11-04 21:48] LABS: Absolute Lymphocyte Count 1.29 X10^3/uL (0.83-4.51); Absolute Neutrophil Count 8.7 X10^3/uL (2.0-7.7); Basophil# 0.16 X10^3/uL; Basophil% 1.4 % (0-1); Eosinophil# 0.12 X10^3/uL; Eosinophils% 1.1 % (0-5); Hematocrit 49.6 % (40-54); Hemoglobin 16.3 g/dL (13.0-16.5); Lymphocyte # 1.29 X10^3/ul (0.83-4.51); Lymphocyte % 11.7 % (19-41); Mean Corp Hgb Conc 32.9 g/dL (32-36); Mean Corpuscular Volume 91.2 fL (80-94); Mean Platelet Vol. 9.3 fl (6.2-12.0); Monocyte# 0.75 X10^3/uL; Monocyte% 6.8 % (0-10); NRBC Flagged by Analyzer 0 % (0-5); Neutrophil # 8.66 X10^3/uL (2.7-7.7); Neutrophil % 78.4 % (47-70); Platelet Count 397 K/mm3 (150-450); RBC Distribution Width CV 12.9 % (11.6-14.6); RBC Distribution Width SD 42.6 fl (35.1-43.9); Red Blood Count 5.44 M/mm3 (4.6-6.2); White Blood Count 11.1 K/mm3 (4.4-11.0)
--- NOTE | 2024-11-04 21:55 | EKG12_ITS ---
Test Reason : CP Blood Pressure : */* mmHG Vent. Rate : 110 BPM Atrial Rate : 110 BPM P-R Int : 132 ms QRS Dur : 104 ms QT Int : 348 ms P-R-T Axes : 76 85 58 degrees QTcB Int : 470 ms Sinus tachycardia Possible Left atrial enlargement Borderline ECG When compared with ECG of 26-Jul-2024 06:05, No significant change was found Confirmed by HAIM ELIZABETH, STAN ([id number]), food expeditor JESSIE MAGALLANES ([id number]) on 11/07/2024 5:35:37 AM Referred By: MIHIR Confirmed By: STAN WHITMORE MD
[2024-11-04 21:56] LABS: Bedside Glucose > 500 mg/dL (74-106)
[2024-11-04] MEDS: 0.9% Normal Saline (1000mL) 1,000 ML 999 ML IV ×2 (21:56→22:27)
[2024-11-04 22:08] LABS: Allen Test Positive; Base Excess -26 mmol/L (-2 to +2); Bicarbonate 4.3 mmol/L (22-26); Blood Gas Specimen Type ART; Mode Not entered; O2 Delivery Device Not entered; PO2 126 mmHG (75-100); SITE R Radial; SO2 97 % (95-99); Total Carbon Dioxide < 5 mmol/L; pCO2 15.5 mmHg (35-45); pH 7.06 (7.35-7.45)
--- NOTE | 2024-11-04 22:19 | CPS ---
Critical ABG values. Dr. Veliz aware.
[2024-11-04 22:21] VITALS: BP 123/67; PULSE 119; RESP 22; O2SAT 100
[2024-11-04 22:27] LABS: BETA-HYDROXYBUTYRATE 10.9 mmol/L (0.0-0.3)
[2024-11-04] MEDS: Insulin Lispro 100 UNIT in 0.9% Normal Saline (100mL Bag) 99 ML 7.8 UNIT CONT INF (22:30)
[2024-11-04 22:31] LABS: Bacteria 0 SEEN /hpf (None Seen); Mucous, Urine 0 SEEN /hpf (<or=2+); Squamous Epithelial Cells - UA 0 SEEN /hpf (0-5); White Blood Cells 0 SEEN /hpf (0-5)
[2024-11-04 22:34] LABS: Color, Urine Yellow (Yellow); Glucose, Dipstick 1000 mg/dl (Normal); Leukocyte Esterase-Dipstick Negative /ul (Negative); Nitrite-Dipstick Negative (Negative); Occult Blood-Urine 10 /ul (Negative); Protein-Dipstick 30 mg/dl (Negative); Urine Bilirubin Dipstick Negative (Negative); Urine Clarity Clear (Clear); Urine Urobilinogen Normal (Normal)
[2024-11-04 22:36] LABS: Anion Gap 37 (5-15); BUN 18 mg/dL (4-19); BUN/Creat Ratio 12.3 RATIO (10-20); Calcium,Total 9.7 mg/dL (7.6-11.0); Carbon Dioxide 6.6 mmol/L (21.0-32.0); Chloride 93 mmol/L (98-108); Creatinine, Serum 1.46 mg/dL (0.70-1.20); EST Glomerular Filtration Rate 66 (>60); Estimated Creatinine Clearance 81.94 ml/min (50-250); Glucose 629 mg/dL (70-99); Potassium 5.4 mmol/L (3.3-5.1); Sodium Level 136 mmol/L (133-145)
[2024-11-04 22:37] VITALS: BP 142/76; PULSE 121; RESP 26; TEMP 36.8; O2SAT 100
[2024-11-04 22:37] LABS: Ketone-Dipstick 150 mg/dl (Negative)
[2024-11-04 22:42] LABS: Red Blood Cells-Urine 0 SEEN /hpf (0-5)
--- NOTE | 2024-11-04 22:42 | HP.PCM.HOS_ITS ---
[facility] - General General Date of Admission: 11/04/24 Date of Service: 11/04/24 Chief Complaint: Severe Hyperglycemia, Nausea, Vomiting and Diarrhea. HPI Narrative MONAE GARCÍA, is a 29 M with a past medical history of DM-1; uncontrolled for the past ~5 years with previous episodes of DKA, history of pyloric stenosis, chronic diarrhea, history of ZAHIDA, tobacco abuse and history of admission here from July 26, 2024 to July 27, 2024 for treatment of DKA who presents to [facility] ER complaining of severe hyperglycemia, nausea, vomiting and diarrhea. Mr. García reports his symptoms began several days prior to admission with blood sugars persistently elevated over the 500 mg/dL range. He also admits to nausea and vomiting with bilious emesis in the setting of his chronic nonbloody diarrhea. He states he currently has no primary care physician and believes he is in DKA again. He denies associated fever, chills, runny nose, sore throat, shortness of breath, cough, chest pain, dysuria, hematuria, arthralgias, rash, headache or focal neurologic deficits. In the ER he was noted to have severe hyperglycemia of 629 mg/dL with elevated beta- hydroxybutyrate of 10.9 mmol/L with a corresponding ABG that revealed pH 7.06/pCO2 15.5 mmHg/pO2 126 mmHg/HCO3 4.3 mmol/L with 97% saturation on RA; all present on admission consistent with DKA likely due to Medical Noncompliance with Insulin complicated by additional laboratory evidence of Hyperkalemia of 5.4 mmol/L and suspected mild ZAHIDA due to Dehydration with elevated serum creatinine of 1.46 mg/dL (up from his baseline of 1.10 mg/dL) present on admission along with Leukocytosis of 11.1 K present on admission suspected to be due to acute stress response with no signs of infection at this time. He was then admitted to the ICU for ongoing care for a stay that is expected to extend beyond 2 midnights. [facility] Medical History Pyloric stenosis Type 1 diabetes Home Medications ?Medication ?Instructions ?Recorded ?Last Taken ?Type insulin lispro 100 unit/mL 1 sliding scale dose subcut 11/04/24 Unknown History subcutaneous pen Allergy/AdvReac Type Severity Reaction Status Date / Time No Known Allergies Allergy Verified 11/04/24 21:23 Family History no significant family his Social History Smoking Status: Heavy Smoker (>10/day) ROS ROS Narrative Review of Systems: Constitutional: Patient denies fever or chills. Eyes: Patient denies changes in vision or discharge from eyes. ENT: Patient denies runny nose, sore throat or ear pain. Resp: Patient denies shortness of breath or cough. CV: Patient denies chest pain, palpitations, heart racing or lower extremity edema. GI: Patient admits to diffuse generalized abdominal pain that is cramping in nature with nonbloody diarrhea and nausea with bilious emesis. : Patient admits to polyuria but he denies dysuria or hematuria. MSK: Patient denies arthralgias or myalgias. Skin: Patient denies rash, abscess, wounds or jaundice. Psych: Patient denies symptoms of uncontrolled depression or anxiety. Neuro: Patient denies headache, paresthesias or focal neurologic deficits. Hematology: Patient denies easy bleeding or easy bruisability. Endocrinology: Patient admits to polyuria and polydipsia but he denies polyphagia. 14 point ROS otherwise negative except for positives noted above in HPI. Vital Signs Vital Signs Vital Signs: 11/04/24 21:23 11/04/24 21:31 11/04/24 22:21 Temperature 97.1 F L Temperature Source Temporal Pulse Rate 114 H 119 H Respiratory Rate 24 H 22 H Respiratory Pattern Tachypnea Blood Pressure 151/99 H 123/67 H Blood Pressure Mean 116 85 Pulse Ox 100 100 Oxygen Delivery Method Room Air Room Air 11/04/24 22:37 Temperature 98.3 F Temperature Source Pulse Rate 121 H Respiratory Rate 26 H Respiratory Pattern Blood Pressure 142/76 H Blood Pressure Mean 98 Pulse Ox 100 Oxygen Delivery Method Weight Weight: 171 lb 15.369 oz Body Mass Index (BMI) 23.3 Physical Exam Const alert, oriented x3, no apparent distress and average body habitus Constitutional Narrative: Patient is acutely ill in appearance. General Appearance: cooperative HEENT normocephalic, head/scalp atraumatic and hearing grossly normal bilaterally HEENT Narrative: Mucous membranes dry. Eyes PERRL, EOMs intact bilaterally and conjunctivae normal Neck no lymphadenopathy and supple Resp normal respiratory effort, no retractions, no use of accessory muscles and clear to auscultation bilaterally Cardio regular rate and regular rhythm GI normal to inspection, nondistended, normoactive bowel sounds, soft to palpation, non-tender and non-distended Extremity normal to inspection, full ROM and no clubbing, cyanosis or edema Skin Skin Narrative: Patient has no evidence of rash, abscess, wounds or jaundice. Neuro oriented x3, CN's II-XII intact bilaterally, moves all extremities and no focal motor deficits Sensorium / Orientation: awake, alert, oriented to person, oriented to place and oriented to time Speech: speech normal Psych affect normal Results Medical Records Data Attestation: I reviewed the patient's medical records Lab / Micro Data Attestation: I reviewed the patient's lab results. 11/05/24 05:00 11/05/24 03:05 Labs: Laboratory Results - last 24 hr 11/04/24 21:32: POC Glucose > 500 H* 11/04/24 21:36: WBC 11.1 H, RBC 5.44, Hgb 16.3, Hct 49.6, MCV 91.2, MCH 30.0, MCHC 32.9, RDW Std Deviation 42.6, RDW Coeff of Willam 12.9, Plt Count 397, MPV 9.3, Immature Gran % (Auto) 0.600, Neut % (Auto) 78.4 H, Lymph % (Auto) 11.7 L, [place] % (Auto) 6.8, Eos % (Auto) 1.1, Baso % (Auto) 1.4 H, Absolute Neuts (auto) 8.7 H, Absolute Lymphs (auto) 1.29, Nucleated RBC % 0, Sodium 136, Potassium 5.4 H, Chloride 93 L, Carbon Dioxide 6.6 L*, Anion Gap 37 H, BUN 18, Creatinine 1.46 H, Estim Creat Clear Calc 81.94, Est GFR (MDRD) Non-Af 66, BUN/Creatinine Ratio 12.3, Glucose 629 H*, Calcium 9.7, b-Hydroxybutyric mmol/L 10.9 11/04/24 22:24: Urine Color Yellow, Urine Clarity Clear, Urine pH 5.0, Ur Specific [place] 1.020, Urine Protein 30 H, Urine Glucose (UA) 1000 H, Urine Ketones 150 A*, Urine Occult Blood 10 H, Urine Nitrite Negative, Urine Bilirubin Negative, Urine Urobilinogen Normal, Ur Leukocyte Esterase Negative, Urine RBC 0 SEEN, Urine WBC 0 SEEN, Ur Squamous Epith Cells 0 SEEN, Urine Bacteria 0 SEEN, Urine Mucus 0 SEEN ABG Data ABG results: ABG 11/04/24 22:05 Specimen Type ART Sample Site R Radial pH 7.06 L* Bicarbonate Actual 4.3 L Total CO2 < 5 Base Excess -26 L O2 Saturation 97 ABG pCO2 15.5 L* ABG pO2 126 H Abraham Test Positive O2 Delivery Device Not entered Vent Mode Not entered Crit Call To/Read Back Yes Interpretation: RUN DATE: 11/05/24 [facility], DEPARTMENT OF LABORATORIES PAGE 1 RUN TIME: 512 Specimen Inquiry [address], [place], [address] PATIENT: MONAE GARCÍA LOC: ICU U #: [id number] : 1995 AGE/SX: 29/M FACILITY: [facility] ROOM: ICU02 R E11/04/[address]: Dr. Izaiah Varela, D STATUS:ADM IN ED: 1 DIS: ~ SPEC #: [id number] ERMA: 11/05/24 STATUS: COMP REQ #: [id number] RECD: 11/05/[address]: Dr. Izaiah Varela, DO ENTERED: 11/05/[address]: Care Physician,No Primary ~ Test Result Flag Reference Range IBG Blood Gas Type ART SITE R Radial ABRAHAM TEST Positive Mode Not entered O2 Delivery Dev Room Air FI02 21.0 Time Given 00:44:[address] cerda Read Back By Yes pH 7.16 *L 7.35-7.45 pCO2 12.4 *L 35-45 mmHg PO2 131 H 75-100 mmHG HCO3 4.4 L 22-26 mmol/L BE -24 L -2 to +2 mmol/L TOTAL CO2 < 5 mmol/L SO2 98 95-99 % UN DATE: 11/05/24 [facility], DEPARTMENT OF LABORATORIES PAGE 1 RUN TIME: 529 Specimen Inquiry [address], [place], [address] PATIENT: MONAE GARCÍA LOC: ICU U #: [id number] : 1995 AGE/SX: 29/M FACILITY: [facility] ROOM: ICU02 R E11/04/[address]: Dr. Izaiah Varela, D STATUS:ADM IN ED: 1 DIS: ~ SPEC #: [id number] ERMA: 11/05/24 STATUS: COMP REQ #: [id number] RECD: 11/05/[address]: Dr. Izaiah Varela, DO ENTERED: 11/05/[address]: Care Physician,No Primary ~ Test Result Flag Reference Range VIBG Blood Gas Type CHRISTINA SITE Not entered O2 Delivery Dev Room Air VBG pH 7.32 7.32-7.42 VBG pCO2 30.9 L 41-51 mmHg VBG PO2 80 H 25-40 mmHg VBG HCO3 16 L 22-26 mmol/L VBG BE -10 L -1.0-3.5 mmol/L VBG SO2 95 H 50-70 % VBG TCO2 17 L 23-33 mmol/L Rhythm Strip Rhythm Strip: Sinus Tach Rate: 110 Ectopy: None Assessment & Plan Assessment/Plan (1) DKA (diabetic ketoacidosis): QUALIFIERS: Diabetes mellitus complication detail: without coma D iabetes mellitus type: type 1 Qualified Code(s): E10.10 - Type 1 diabetes mellitus with ketoacidosis without coma (2) Type 1 diabetes: QUALIFIERS: Diabetes mellitus complication status: with hyperglycemia Qualified Code(s): E10.65 - Type 1 diabetes mellitus with hyperglycemia (3) Nausea, vomiting and diarrhea: (4) Abdominal pain: QUALIFIERS: Abdominal location: generalized Qualified Code(s): R 10.84 - Generalized abdominal pain (5) Hyperkalemia: (6) ZAHIDA (acute kidney injury): (7) Acute dehydration: (8) Leukocytosis: QUALIFIERS: Leukocytosis type: unspecified Qualified Code(s): D 72.829 - Elevated white blood cell count, unspecified (9) Tobacco abuse: PLAN: Plan 1. Severe hyperglycemia of 629 mg/dL with elevated beta-hydroxybutyrate of 10.9 mmol/L with a corresponding ABG that revealed pH 7.06/pCO2 15.5 mmHg/pO2 126 mmHg/ HCO3 4.3 mmol/L with 97% saturation on RA; all present on admission consistent with DKA causing Nausea, Vomiting and generalized, cramping Abdominal Pain - Admit to ICU for treatment under the DKA protocol primarily consisting of insulin drip. Keep strict n.p.o. and start IV pantoprazole daily for GI prophylaxis. Give ondansetron IV as needed for nausea and vomiting. Give promethazine IM as needed for breakthrough nausea and vomiting. Give acetaminophen suppositories as needed for [id number] (level 1-5/10) pain or fever. Give morphine IV as needed for severe (level 6-10/10) pain. 2. Medical Noncompliance with Insulin likely causing #1 in the setting of known history of DM-1; uncontrolled with hyperglycemia for the past ~5 years with previous episodes of DKA - Check UDS. Finally, we will consult clinical dietitian sees patient on rounds in the a.m. for further recommendations regarding diabetic teaching with help appreciated in advance. 3. Hyperkalemia of 5.4 mmol/L complicating #1 & #2 - Aggressively volume resuscitate and recheck BMP every 4 hours as per DKA protocol. 4. Suspected mild ZAHIDA due to Dehydration with elevated serum creatinine of 1.46 mg/dL (up from his baseline of 1.10 mg/dL) present on admission compounding #1 - #3 - Give copious IV fluid and recheck renal indices daily to evaluate for potential improvement. 5. Leukocytosis of 11.1 K present on admission suspected to be due to acute stress response triggered by #1 - #4 with no signs of infection at this time - We we will watch closely in case signs or symptoms of infection develop. 6. Chronic Diarrhea adding to the burden of disease outlined from #1 - #5 - Check stool studies to evaluate for potential infectious etiology. If testing is negative patient will be started on Imodium as needed. 7. Tobacco Abuse - Tobacco Cessation will be strongly encouraged with nicotine patch offered to control cravings. 8. History of admission here from July 26, 2024 to July 27, 2024 for treatment of DKA - Noted with recurrent pattern of illness resulting in similar admission. 9. History of pyloric stenosis - Noted. 10. DVT prophylaxis - Lovenox 40 mg sq daily plus SCDs. Total time: Approximately (but not less than) 75 minutes. Charges/Coding Visit Charges Inpatient E&M: 18122 Init Hosp L3
[2024-11-04 22:49] LABS: Bedside Glucose > 500 mg/dL (74-106)
[2024-11-04 23:00] VITALS: BP 127/81; PULSE 117; RESP 18; O2SAT 100
[2024-11-04 23:40] LABS: Bedside Glucose > 500 mg/dL (74-106)
[2024-11-04 23:50] VITALS: BP 143/94; PULSE 114; RESP 22; TEMP 36.2; O2SAT 100; BMI 23.3
[2024-11-05] VITALS (24 sets, daily range): BP systolic 109–151; BP diastolic 40–92; PULSE 85–114; RESP 12–22; TEMP 36.1–36.7; O2SAT 96–100
[2024-11-05] MEDS: 0.9% Normal Saline (1000mL) 1,000 ML 999 ML IV (00:22)
[2024-11-05] MEDS: Pantoprazole Sodium 40 MG in 0.9% Normal Saline (100mL MB+) 100 ML 330 MG IV ×2 (00:23→22:22)
[2024-11-05 00:32] LABS: Bedside Glucose 370 mg/dL (74-106)
[2024-11-05 00:49] LABS: Allen Test Positive; Base Excess -24 mmol/L (-2 to +2); Bicarbonate 4.4 mmol/L (22-26); Blood Gas Specimen Type ART; Mode Not entered; O2 Delivery Device Room Air; PO2 131 mmHG (75-100); SITE R Radial; SO2 98 % (95-99); Total Carbon Dioxide < 5 mmol/L; pCO2 12.4 mmHg (35-45); pH 7.16 (7.35-7.45)
[2024-11-05 01:26] LABS: Hemoglobin A1c 12.5 % (<=5.6)
[2024-11-05] MEDS: KCL 20MEQ in D5.45NS 20 MEQ/1,000 ML IV.SOLN. 150 MEQ IV ×2 (01:29→07:41)
[2024-11-05 01:43] LABS: Magnesium 2.1 mg/dL (1.5-2.2); Thyroid Stim Hormone (TSH) 0.231 uIU/mL (0.300-4.200); Vitamin B12 1315 pg/mL (180-914)
[2024-11-05 01:44] LABS: FOLATES,SERUM (FOLIC ACID) 9.76 ng/mL (4.60-34.80)
[2024-11-05 01:53] LABS: Anion Gap 29 (5-15); BUN 17 mg/dL (4-19); BUN/Creat Ratio 13.2 RATIO (10-20); Calcium,Total 8.2 mg/dL (7.6-11.0); Carbon Dioxide 5.2 mmol/L (21.0-32.0); Chloride 106 mmol/L (98-108); Creatinine, Serum 1.26 mg/dL (0.70-1.20); EST Glomerular Filtration Rate 79 (>60); Estimated Creatinine Clearance 94.95 ml/min (50-250); Glucose 338 mg/dL (70-99); Potassium 4.4 mmol/L (3.3-5.1); Sodium Level 140 mmol/L (133-145)
[2024-11-05 02:15] LABS: Alcohol, Blood (Medical)-Serum < 10.1 mg/dL (<=10.0)
[2024-11-05 03:18] LABS: Bedside Glucose 227 mg/dL (74-106)
[2024-11-05 03:18] LABS: Bedside Glucose 174 mg/dL (74-106)
[2024-11-05 03:48] LABS: Anion Gap 20 (5-15); BUN 14 mg/dL (4-19); BUN/Creat Ratio 12.3 RATIO (10-20); Carbon Dioxide 10.9 mmol/L (21.0-32.0); Chloride 111 mmol/L (98-108); Creatinine, Serum 1.13 mg/dL (0.70-1.20); EST Glomerular Filtration Rate 90 (>60); Estimated Creatinine Clearance 105.87 ml/min (50-250); Glucose 156 mg/dL (70-99); Potassium 4.4 mmol/L (3.3-5.1); Sodium Level 142 mmol/L (133-145)
[2024-11-05 04:13] LABS: Bedside Glucose 137 mg/dL (74-106)
[2024-11-05 04:21] LABS: Bedside Glucose 149 mg/dL (74-106)
[2024-11-05 05:09] LABS: Absolute Lymphocyte Count 1.36 X10^3/uL (0.83-4.51); Absolute Neutrophil Count 9.5 X10^3/uL (2.0-7.7); Basophil# 0.05 X10^3/uL; Basophil% 0.4 % (0-1); Eosinophil# 0.01 X10^3/uL; Eosinophils% 0.1 % (0-5); Hematocrit 38.5 % (40-54); Hemoglobin 13.5 g/dL (13.0-16.5); Lymphocyte # 1.36 X10^3/ul (0.83-4.51); Lymphocyte % 11.3 % (19-41); Mean Corp Hgb Conc 35.1 g/dL (32-36); Mean Corpuscular Hgb 30.4 pg (27.0-32.0); Mean Corpuscular Volume 86.7 fL (80-94); Mean Platelet Vol. 8.7 fl (6.2-12.0); Monocyte# 1.06 X10^3/uL; Monocyte% 8.8 % (0-10); NRBC Flagged by Analyzer 0 % (0-5); Neutrophil # 9.51 X10^3/uL (2.7-7.7); Neutrophil % 78.8 % (47-70); Platelet Count 286 K/mm3 (150-450); RBC Distribution Width CV 12.7 % (11.6-14.6); RBC Distribution Width SD 39.8 fl (35.1-43.9); Red Blood Count 4.44 M/mm3 (4.6-6.2); White Blood Count 12.1 K/mm3 (4.4-11.0)
[2024-11-05 05:15] LABS: Blood Gas Specimen Type VEN; O2 Delivery Device Room Air; SITE Not entered; VBG BASE EXCESS -10 mmol/L (-1.0-3.5); VBG Bicarbonate 16 mmol/L (22-26); VBG PO2 80 mmHg (25-40); VBG SO2 95 % (50-70); VBG TCO2 17 mmol/L (23-33); VBG pCO2 30.9 mmHg (41-51); VBG pH 7.32 (7.32-7.42)
[2024-11-05 05:27] LABS: BETA-HYDROXYBUTYRATE 2.4 mmol/L (0.0-0.3)
[2024-11-05 05:43] LABS: Anion Gap 16 (5-15); BUN 12 mg/dL (4-19); BUN/Creat Ratio 10.7 RATIO (10-20); Calcium,Total 8.2 mg/dL (7.6-11.0); Carbon Dioxide 14.7 mmol/L (21.0-32.0); Chloride 112 mmol/L (98-108); Creatinine, Serum 1.15 mg/dL (0.70-1.20); EST Glomerular Filtration Rate 88 (>60); Estimated Creatinine Clearance 104.03 ml/min (50-250); Glucose 130 mg/dL (70-99); Phosphorus 2.7 mg/dL (2.7-4.5); Potassium 4.1 mmol/L (3.3-5.1); Sodium Level 143 mmol/L (133-145)
[2024-11-05 06:19] LABS: Bedside Glucose 97 mg/dL (74-106)
[2024-11-05 07:14] LABS: Bedside Glucose 101 mg/dL (74-106)
--- NOTE | 2024-11-05 07:50 | PCM.PN.HOSP ---
Reason for Visit Reason for Visit: Diagnoses Elevated white blood cell count, unspecified (11/04/24) Type 1 diabetes mellitus with ketoacidosis without coma (11/04/24) Type 1 diabetes mellitus with hyperglycemia (11/04/24) Dehydration (11/04/24) Hyperkalemia (11/04/24) Acute kidney failure, unspecified (11/04/24) Generalized abdominal pain (11/04/24) Nausea with vomiting, unspecified (11/04/24) Diarrhea, unspecified (11/04/24) Tobacco use (11/04/24) Subjective Subjective Patient resting comfortably in bed, minimally wants to wake up to participate in exam but no acute complaints and no acute distress Objective Data Objective Data Vital Signs: Vital Signs Temp Pulse Resp BP Pulse Ox O2 Del Method 98.0 F 100 17 119/65 97 Room Air 11/05/24 04:00 11/05/24 07:00 11/05/24 07:00 11/05/24 07:00 11/05/24 07:00 11/05/24 07:00 Oxygen Delivery Method Room Air Weight: 78 kg Body Mass Index (BMI) 23.3 Intake & Output: Intake and Output for Last 24 Hours 11/03/24 11/04/24 11/05/24 23:59 23:59 23:59 Intake Total 3000 / 3011.7 2075.9 / 2075.9 Output Total 1300 / 1300 Balance 3000 / 2311.7 775.9 / 775.9 Lab / Micro Data 11/05/24 05:00 11/05/24 09:00 Labs: Laboratory Results - last 24 hr 11/04/24 21:32: POC Glucose > 500 H* 11/04/24 21:36: WBC 11.1 H, RBC 5.44, Hgb 16.3, Hct 49.6, MCV 91.2, MCH 30.0, MCHC 32.9, RDW Std Deviation 42.6, RDW Coeff of Willam 12.9, Plt Count 397, MPV 9.3, Immature Gran % (Auto) 0.600, Neut % (Auto) 78.4 H, Lymph % (Auto) 11.7 L, [place] % (Auto) 6.8, Eos % (Auto) 1.1, Baso % (Auto) 1.4 H, Absolute Neuts (auto) 8.7 H, Absolute Lymphs (auto) 1.29, Nucleated RBC % 0, Sodium 136, Potassium 5.4 H, Chloride 93 L, Carbon Dioxide 6.6 L*, Anion Gap 37 H, BUN 18, Creatinine 1.46 H, Estim Creat Clear Calc 81.94, Est GFR (MDRD) Non-Af 66, BUN/Creatinine Ratio 12.3, Glucose 629 H*, Calcium 9.7, b-Hydroxybutyric mmol/L 10.9 11/04/24 22:24: Urine Color Yellow, Urine Clarity Clear, Urine pH 5.0, Ur Specific [place] 1.020, Urine Protein 30 H, Urine Glucose (UA) 1000 H, Urine Ketones 150 A*, Urine Occult Blood 10 H, Urine Nitrite Negative, Urine Bilirubin Negative, Urine Urobilinogen Normal, Ur Leukocyte Esterase Negative, Urine RBC 0 SEEN, Urine WBC 0 SEEN, Ur Squamous Epith Cells 0 SEEN, Urine Bacteria 0 SEEN, Urine Mucus 0 SEEN 11/04/24 22:31: POC Glucose > 500 H* 11/04/24 23:20: POC Glucose > 500 H* 11/05/24 00:11: POC Glucose 370 H 11/05/24 00:35: Sodium 140, Potassium 4.4, Chloride 106, Carbon Dioxide 5.2 L*, Anion Gap 29 H, BUN 17, Creatinine 1.26 H, Estim Creat Clear Calc 94.95, Est GFR (MDRD) Non-Af 79, BUN/Creatinine Ratio 13.2, Glucose 338 H, Hemoglobin A1c 12.5, Calcium 8.2, Magnesium 2.1, Vitamin B12 1315 H, Serum Folate 9.76, TSH 0.231 L, Ethyl Alcohol < 10.1 11/05/24 01:06: POC Glucose 227 H 11/05/24 02:04: POC Glucose 174 H 11/05/24 03:04: POC Glucose 137 H 11/05/24 03:05: Sodium 142, Potassium 4.4, Chloride 111 H, Carbon Dioxide 10.9 L, Anion Gap 20 H, BUN 14, Creatinine 1.13, Estim Creat Clear Calc 105.87, Est GFR (MDRD) Non-Af 90, BUN/Creatinine Ratio 12.3, Glucose 156 H, Calcium 8.0 11/05/24 03:58: POC Glucose 149 H 11/05/24 05:00: WBC 12.1 H, RBC 4.44 L, Hgb 13.5, Hct 38.5 L, MCV 86.7, MCH 30.4, MCHC 35.1 D, RDW Std Deviation 39.8, RDW Coeff of Willam 12.7, Plt Count 286, MPV 8.7, Immature Gran % (Auto) 0.600, Neut % (Auto) 78.8 H, Lymph % (Auto) 11.3 L, [place] % (Auto) 8.8, Eos % (Auto) 0.1, Baso % (Auto) 0.4, Absolute Neuts (auto) 9.5 H, Absolute Lymphs (auto) 1.36, Nucleated RBC % 0, Sodium 143, Potassium 4.1, Chloride 112 H, Carbon Dioxide 14.7 L, Anion Gap 16 H, BUN 12, Creatinine 1.15, Estim Creat Clear Calc 104.03, Est GFR (MDRD) Non-Af 88, BUN/Creatinine Ratio 10.7, Glucose 130 H, Calcium 8.2, Phosphorus 2.7, b-Hydroxybutyric mmol/L 2.4 11/05/24 06:00: POC Glucose 97 11/05/24 06:56: POC Glucose 101 ABG Data ABG results: ABG 11/04/24 11/05/24 11/05/24 22:05 00:43 05:09 Specimen Type ART ART CHRISTINA Sample Site R Radial R Radial Not entered pH 7.06 L* 7.16 L* Bicarbonate Actual 4.3 L 4.4 L Total CO2 < 5 < 5 Base Excess -26 L -24 L O2 Saturation 97 98 O2 % 21.0 ABG pCO2 15.5 L* 12.4 L* ABG pO2 126 H 131 H Abraham Test Positive Positive VBG pH 7.32 VBG pO2 80 H VBG HCO3 16 L VBG Total CO2 17 L VBG O2 Sat (Calc) 95 H VBG Base Excess -10 L POC Mix VBG pCO2 Pt Tmp 30.9 L O2 Delivery Device Not entered Room Air Room Air Vent Mode Not entered Not entered Crit Call To/Read Back Yes Yes Blood Gas Notified Whom dr. cerda Blood Gas Notified Time 00:44:57 Rhythm Strip Rhythm Strip: Sinus Tach Rate: 110 Ectopy: None Physical Exam Narrative General: Resting comfortably, will wake up but goes back to sleep and reluctant to participate in exam HEENT: Atraumatic, normocephalic Eyes: extraocular movements grossly intact Neck: Supple Respiratory: normal respiratory effort Cardiovascular: no edema appreciated GI: nondistended, nontender Extremities: Moving all extremities Neuro: No overt focal neurological deficits Psych: Not overtly cooperative Assessment & Plan Assessment/Plan (1) DKA (diabetic ketoacidosis): QUALIFIERS: Diabetes mellitus complication detail: without coma Diabetes mellitus type: type 1 Qualified Code(s): E10.10 - Type 1 diabetes mellitus with ketoacidosis without coma PLAN: Plan #DKA in setting of chronic type 1 diabetes -Serum glucose in ED 629, anion gap 37, bicarb 6.6 with a pH of 7.06 -Urine ketones positive -Serum beta hydroxybutyrate acid 10.9 -Admit to intensive care unit -N.p.o. -Insulin drip started -Aggressive fluid hydration -Glucose checks and DKA protocol -BMP every 4H -Replace electrolytes per protocol -I's and O's -A1c 12.5 -When serum glucose is <250 mg/dl, change IV fluids to D5%1/2NS at 150 ml/hr and continue insulin drip as per nomogram -11/05: Patient's gap is closed, diet order entered and patient to be transition to subcu # ZAHIDA -Creatinine 1.46 on admission with a baseline around 1.1 -11/05: Today is 1.15 with IV fluids, continue present management #Tobacco use -Advise cessation -Nicotine replacement available if desired #DVT ppx: Lovenox subcu Charity Michele MD Time spent in the patient's overall evaluation, decision-making process, review of diagnostic data, adjustment of management, discussion with other providers, nursing and ancillary staff involved in patient's care documentation, 36 Minutes Charges/Coding Visit Charges Inpatient E&M: 99294 Subs Hosp L2
[2024-11-05 08:26] LABS: Amphetamine Urine NEGATIVE (<1000 ng/mL); Barbiturate Urine NEGATIVE (< 200 ng/mL); Benzodiazepine Urine NEGATIVE (< 200 ng/mL); Buprenorphine Urine NEGATIVE (< 200 ng/mL); Cocaine Urine PRESUMPTIVE POSITIVE (< 300 ng/mL); Fentanyl, Urine NEGATIVE; Methadone Urine NEGATIVE (< 300 ng/mL); Opiates Urine NEGATIVE (< 300 ng/mL); Oxycodone, Urine NEGATIVE (< 100 ng/mL); PCP Urine NEGATIVE (< 25 ng/mL); THC Urine NEGATIVE (< 50 ng/mL)
[2024-11-05 08:28] LABS: Bedside Glucose 126 mg/dL (74-106)
[2024-11-05] MEDS: Enoxaparin 40 MG/0.4 ML Syringe SC (09:00)
[2024-11-05 09:16] LABS: Bedside Glucose 94 mg/dL (74-106)
[2024-11-05 09:17] LABS: Bedside Glucose 87 mg/dL (74-106)
[2024-11-05 09:40] LABS: Anion Gap 12 (5-15); BUN 11 mg/dL (4-19); BUN/Creat Ratio 10.1 RATIO (10-20); Calcium,Total 8.3 mg/dL (7.6-11.0); Carbon Dioxide 17.5 mmol/L (21.0-32.0); Chloride 113 mmol/L (98-108); Creatinine, Serum 1.07 mg/dL (0.70-1.20); EST Glomerular Filtration Rate 96 (>60); Estimated Creatinine Clearance 111.81 ml/min (50-250); Glucose 92 mg/dL (70-99); Potassium 3.8 mmol/L (3.3-5.1); Sodium Level 142 mmol/L (133-145)
[2024-11-05 10:28] LABS: Bedside Glucose 89 mg/dL (74-106)
[2024-11-05 11:25] LABS: Bedside Glucose 90 mg/dL (74-106)
[2024-11-05 12:41] LABS: Bedside Glucose 96 mg/dL (74-106)
[2024-11-05 13:15] LABS: Anion Gap 10 (5-15); BUN 9 mg/dL (4-19); BUN/Creat Ratio 9.4 RATIO (10-20); Calcium,Total 8.5 mg/dL (7.6-11.0); Carbon Dioxide 19.8 mmol/L (21.0-32.0); Chloride 113 mmol/L (98-108); Creatinine, Serum 0.99 mg/dL (0.70-1.20); EST Glomerular Filtration Rate 106 (>60); Estimated Creatinine Clearance 120.84 ml/min (50-250); Glucose 97 mg/dL (70-99); Potassium 3.6 mmol/L (3.3-5.1); Sodium Level 143 mmol/L (133-145)
[2024-11-05 13:27] LABS: Bedside Glucose 90 mg/dL (74-106)
[2024-11-05 14:27] LABS: Bedside Glucose 79 mg/dL (74-106)
[2024-11-05] MEDS: Insulin Glargine-YFGN 100 UNIT/ML Pen 15 UNIT SC (15:06)
[2024-11-05] MEDS: Insulin Lispro 100 UNIT/ML INSULN.PEN SC ×2 (17:03→22:19)
[2024-11-05 17:06] LABS: Bedside Glucose 295 mg/dL (74-106)
[2024-11-05] MEDS: Insulin Glargine-YFGN 100 UNIT/ML Pen 20 UNIT SC (22:20)
[2024-11-05 23:44] LABS: Blood Gas Specimen Type VEN; O2 Delivery Device Room Air; SITE Not entered; VBG BASE EXCESS -10 mmol/L (-1.0-3.5); VBG Bicarbonate 17 mmol/L (22-26); VBG PO2 38 mmHg (25-40); VBG SO2 66 % (50-70); VBG TCO2 18 mmol/L (23-33); VBG pCO2 34.3 mmHg (41-51)
[2024-11-06] VITALS (13 sets, daily range): BP systolic 110–135; BP diastolic 61–88; PULSE 69–84; RESP 12–18; TEMP 36.4–36.6; O2SAT 97–99; BMI 24.7
[2024-11-06 00:05] LABS: Anion Gap 18 (5-15); BUN 14 mg/dL (4-19); Calcium,Total 8.6 mg/dL (7.6-11.0); Carbon Dioxide 16.1 mmol/L (21.0-32.0); Chloride 100 mmol/L (98-108); Creatinine, Serum 1.17 mg/dL (0.70-1.20); EST Glomerular Filtration Rate 87 (>60); Estimated Creatinine Clearance 102.25 ml/min (50-250); Glucose 270 mg/dL (70-99); Potassium 3.4 mmol/L (3.3-5.1); Sodium Level 135 mmol/L (133-145)
[2024-11-06 00:17] LABS: BETA-HYDROXYBUTYRATE 2.5 mmol/L (0.0-0.3)
[2024-11-06 01:04] LABS: Bedside Glucose 133 mg/dL (74-106)
--- NOTE | 2024-11-06 01:05 | PN.HOSP_ITS ---
Hospitalist Note I was called in the late evening by RESTRICTIVE PREPARATION OPERATOR and informed patient had spiked his blood glucose to 416 mg/dL in spite of being covered with long-acting and sliding scale insulin. New labs were ordered with the patient showing he has an elevated anion gap of 18 (after dropping to 10 at 12:20 PM on 11/05/2024 from 37 on admission at 11:36 PM on November 04, 2024) with a corresponding increase beta hydroxybutyric acid level of 2.5 mmol/L (normal 0.0-0.3) in addition to the VBG with pH 7.30 indicating that this patient has gone back into DKA. A review of his records shows his beta hydroxybutyrate level was elevated at 10.9 mmol/L on admission and it only dropped to 2.4 mmol/L at 5 AM on November 05, 2024 indicating patient was likely still in DKA but was apparently started on subcu insulin and oral diet with persistent hyperglycemia throughout the day and worsening indices noted above. Therefore, he was restarted on DKA protocol with insulin drip, made n.p.o. and started on D5 1/2 NS with 20 meq KCl @ 150 cc/hour x 2L. Patient has a recheck of his beta hydroxybutyrate and ABG pending in the a.m. so trend can be followed and insulin drip can be stopped when this indicator is negative so that he can safely be restarted on subcutaneous insulin at that time. RESTRICTIVE PREPARATION OPERATOR was updated with plan. UN DATE: 11/06/24 [facility], DEPARTMENT OF LABORATORIES PAGE 1 RUN TIME: 0637 Specimen Inquiry [id number] , [place], [address] PATIENT: MONAE GARCÍA LOC: [facility] U #: [id number] : 1995 AGE/SX: 29/M FACILITY: [facility] ROOM: [facility] RE11/04/[address]: Dr. Charity Michele MD STATUS:ADM IN ED: 1 DIS: ~ SPEC #: [id number] ERMA: 11/05/24 STATUS: COMP REQ #: [id number] RECD: 11/05/[address]: Dr. Charity Michele MD ENTERED: 11/05/24-[address]: Dr. Izaiah Varela DO Care Physician,No Primary ~ Test Result Flag Reference Range VIBG Blood Gas Type CHRISTINA SITE Not entered O2 Delivery Dev Room Air VBG pH 7.30 L 7.32-7.42 VBG pCO2 34.3 L 41-51 mmHg VBG PO2 38 25-40 mmHg VBG HCO3 17 L 22-26 mmol/L VBG BE -10 L -1.0-3.5 mmol/L VBG SO2 66 50-70 % VBG TCO2 18 L 23-33 mmol/L RUN DATE: 11/06/24 [facility], DEPARTMENT OF LABORATORIES PAGE 1 RUN TIME: 0639 Specimen Inquiry [id number] , [place], [address] PATIENT: MONAE GARCÍA LOC: [facility] U #: [id number] : 1995 AGE/SX: 29/M FACILITY: [facility] ROOM: [facility] RE11/04/[address]: Dr. Charity Michele MD STATUS:ADM IN ED: 1 DIS: ~ SPEC #: [id number] ERMA: 11/05/24 STATUS: COMP REQ #: [id number] RECD: 11/05/[address]: Dr. Izaiah Varela, ENTERED: 11/05/24-[address]: Dr. Charity Michele MD Care Physician,No Primary ~ Test Result Flag Reference Range BMP GLU 270 H 70-99 mg/dL BUN 14 4-19 mg/dL CREAT,SERUM 1.17 0.70-1.20 mg/dL eGFR 87 >60 mL/min/1.73m2 CKD-EPI Creatinine Equation (2020) ECRCL 102.25 50-250 ml/min BUN/CRE 12.0 10-20 RATIO Calcium 8.6 7.6-11.0 mg/dL NA 135 133-145 mmol/L Potassium 3.4 3.3-5.1 mmol/L CL 100 98-108 mmol/L CO2 16.1 L 21.0-32.0 mmol/L GAP 18 H 5-15 BETA-HYDROXYBUT 2.5 0.0-0.3 mmol/L RUN DATE: 11/06/24 [facility], DEPARTMENT OF LABORATORIES PAGE 1 RUN TIME: 0640 Specimen Inquiry [id number], [place], [address] PATIENT: MONAE GARCÍA LOC: [facility] U #: [id number] : 1995 AGE/SX: 29/M FACILITY: [facility] ROOM: [facility] RE11/04/[address]: Dr. Charity Michele MD STATUS:ADM IN ED: 1 DIS: ~ SPEC #: [id number] ERMA: 11/05/24 STATUS: COMP REQ #: [id number] RECD: 11/06/[address]: Dr. Charity Michele MD ENTERED: 11/06/[address]: Dr. Izaiah Varela, [facility] Physician,No Primary ~ Test Result Flag Reference Range FINGERSTICK GLU 416 H 74-106 mg/dL MANAGEMENT OF PATIENT CARE PER NURSING PROTOCOL
[2024-11-06 01:24] LABS: Bedside Glucose 416 mg/dL (74-106)
[2024-11-06] MEDS: KCL 20MEQ in D5.45NS 20 MEQ/1,000 ML IV.SOLN. 150 MEQ IV ×2 (01:36→09:07)
[2024-11-06 01:54] LABS: Anion Gap 12 (5-15); BUN 12 mg/dL (4-19); BUN/Creat Ratio 12.1 RATIO (10-20); Calcium,Total 8.6 mg/dL (7.6-11.0); Chloride 106 mmol/L (98-108); Creatinine, Serum 0.97 mg/dL (0.70-1.20); EST Glomerular Filtration Rate 109 (>60); Estimated Creatinine Clearance 123.33 ml/min (50-250); Glucose 112 mg/dL (70-99); Potassium 3.1 mmol/L (3.3-5.1); Sodium Level 139 mmol/L (133-145)
[2024-11-06] MEDS: Insulin Lispro 100 UNIT in 0.9% Normal Saline (100mL Bag) 99 ML CONT INF (01:56)
[2024-11-06 01:59] LABS: Bedside Glucose 113 mg/dL (74-106)
[2024-11-06 02:20] LABS: Bedside Glucose 124 mg/dL (74-106)
[2024-11-06 03:18] LABS: Bedside Glucose 124 mg/dL (74-106)
[2024-11-06 04:21] LABS: Bedside Glucose 101 mg/dL (74-106)
[2024-11-06 05:19] LABS: Bedside Glucose 92 mg/dL (74-106)
[2024-11-06 05:26] LABS: Allen Test Positive; Bicarbonate 25.1 mmol/L (22-26); Blood Gas Specimen Type ART; Mode Not entered; O2 Delivery Device Not entered; PO2 82 mmHG (75-100); SITE R Radial; pCO2 43.2 mmHg (35-45); pH 7.37 (7.35-7.45)
[2024-11-06 05:27] LABS: Base Excess 0 mmol/L (-2 to +2); SO2 96 % (95-99); Total Carbon Dioxide 26 mmol/L
--- NOTE | 2024-11-06 05:34 | NURSING ---
Patient given patient education on Diabetes, questions answered. Insulin gtt originally turned off at 1400 hours 11/05 after Anion Gap was closed x2. No additional bloodwork was obtained to check serum ketones or check Beta-Hydroxybutyric Acid level to check for ketosis byproduct. Patient was given food around 1400 hours and POC Glucose taken before dinner was 295 and 6 units of lispro were given for coverage. Patient also ate dinner tray brought later. Sugar not checked after dinner until HS check. Patient found to have POC fingerstick of 416 at bedtime sugar check. Per sliding scale, 11 units of Lispro were given, in addition to the BID Glargine 20 units, were administered in tandem, and Dr. Aranda notified ~[id number] hours 11/05. Dr. Aranda ordered a BMP, VBG, and Beta-Hydroxybutyric Acid Level to be checked. BMP showed Anion Gap of 18 (Reopened), pH of 7.31, Co2 of 16.1, and Serum Glucose of 270. Beta-Hydroxybutyric Acid Level was 2.5; meaning byproducts of ketosis were still present and patient found to still be in DKA. Patient was reordered Insulin gtt with DKA protocol. POC Glucose obtained at 0045 hours after insulin SC was given was found to be 133. Update made to Dr. Aranda and concerns were made aware to MD that if insulin was started at initial rate of 7.8 un/hr [Even with D5/0.45NS/20 mEq KCl @150cc/hr] there was a high likelihood to immediately cause hypoglycemia. Dr. Aranda agreed with this RN regarding starting rate for insulin gtt; with verbal orders with readback given to start the insulin gtt at initial rate of 1 un/hr; considering that patient had already received SC Insulin and Sugar had dropped by ~300 in less than [address] Aranda reordered Q4H BMP and Beta-Hydroxybutyric Acid level. The Beta-Hydroxybutyric Acid level MUST be less than 0.03 before insulin drip maybe discontinued, even if Anion Gap is closed before transition to SC Insulin. If Level is greater than 0.03; it means that the body is still burning Ketones, and thus still be in DKA.
[2024-11-06 06:08] LABS: Hematocrit 37.4 % (40-54); Hemoglobin 13.3 g/dL (13.0-16.5); Mean Corp Hgb Conc 35.6 g/dL (32-36); Mean Corpuscular Hgb 30.2 pg (27.0-32.0); Mean Platelet Vol. 8.8 fl (6.2-12.0); Platelet Count 213 K/mm3 (150-450); RBC Distribution Width CV 12.7 % (11.6-14.6); RBC Distribution Width SD 39.2 fl (35.1-43.9); White Blood Count 5.1 K/mm3 (4.4-11.0)
[2024-11-06 06:22] LABS: Bedside Glucose 87 mg/dL (74-106)
[2024-11-06 06:33] LABS: Anion Gap 9 (5-15); BUN 9 mg/dL (4-19); BUN/Creat Ratio 11.3 RATIO (10-20); Calcium,Total 8.4 mg/dL (7.6-11.0); Carbon Dioxide 23.2 mmol/L (21.0-32.0); Chloride 108 mmol/L (98-108); Creatinine, Serum 0.81 mg/dL (0.70-1.20); EST Glomerular Filtration Rate 123 (>60); Glucose 84 mg/dL (70-99); Phosphorus 2.4 mg/dL (2.7-4.5); Potassium 2.9 mmol/L (3.3-5.1); Sodium Level 140 mmol/L (133-145)
[2024-11-06 06:44] LABS: Scan Indicated on CBC? Y/N NO
[2024-11-06 07:15] LABS: Bedside Glucose 76 mg/dL (74-106)
[2024-11-06] MEDS: Enoxaparin 40 MG/0.4 ML Syringe SC (08:03)
[2024-11-06] MEDS: Dextrose 10%-Water 250 ML 999 ML IV (08:10)
[2024-11-06] MEDS: Potassium Phosphate 40 MM in 0.9% Normal Saline (500mL Bag) 500 ML 62.5 MM IV (08:18)
--- NOTE | 2024-11-06 08:40 | NURSING ---
Dr Toth notified of patient's Hypoglycemia and that the protocol was followed including insulin gtt currently on hold. Patient remained asymptomatic and BGT was 107 on recheck. Verbal order received to continue to hold insulin gtt until BGT >100
[2024-11-06 09:00] LABS: Bedside Glucose 68 mg/dL (74-106)
[2024-11-06 09:00] LABS: Bedside Glucose 102 mg/dL (74-106)
[2024-11-06 10:20] LABS: Bedside Glucose 78 mg/dL (74-106)
[2024-11-06 11:00] LABS: BETA-HYDROXYBUTYRATE 0.1 mmol/L (0.0-0.3)
[2024-11-06 11:22] LABS: Bedside Glucose 80 mg/dL (74-106)
--- NOTE | 2024-11-06 11:24 | CASEMGMT ---
SW went to patient's room as he is self pay. Patient was lying in bed with his significant other. SW provided patient with information on [employer], [employer] street card, [employer], Francesca Lawson, and [facility]. Barb from [employer] assisted patient in applying for Medicaid. Jael Maldonado MAIL MANAGER HOA
[2024-11-06 11:32] LABS: Anion Gap 9 (5-15); Calcium,Total 8.4 mg/dL (7.6-11.0); Carbon Dioxide 22.7 mmol/L (21.0-32.0); Chloride 107 mmol/L (98-108); Creatinine, Serum 0.78 mg/dL (0.70-1.20); EST Glomerular Filtration Rate 124 (>60); Estimated Creatinine Clearance 153.38 ml/min (50-250); Glucose 90 mg/dL (70-99); Sodium Level 139 mmol/L (133-145)
[2024-11-06 12:05] LABS: BUN 8 mg/dL (4-19); BUN/Creat Ratio 10.4 RATIO (10-20)
[2024-11-06 14:21] LABS: Anion Gap 11 (5-15); BUN 7 mg/dL (4-19); BUN/Creat Ratio 8.8 RATIO (10-20); Calcium,Total 8.5 mg/dL (7.6-11.0); Carbon Dioxide 22.8 mmol/L (21.0-32.0); Chloride 107 mmol/L (98-108); Creatinine, Serum 0.79 mg/dL (0.70-1.20); EST Glomerular Filtration Rate 124 (>60); Estimated Creatinine Clearance 151.43 ml/min (50-250); Glucose 67 mg/dL (70-99); Potassium 3.3 mmol/L (3.3-5.1); Sodium Level 141 mmol/L (133-145)
--- NOTE | 2024-11-06 14:23 | CASEMGMT ---
GARO CHAUDHARI Assessment Face to Face with patient for initial transition planning/care coordination assessment. GARO CHAUDHARI introduced self and role at [facility], pt voices understanding. Pt is A&Ox4 and is resting comfortably in bed and is calm. Pt SO at bedside. Care providers, pharmacy, and demographics verified. Admitting dx: DKA ISIDRO Strata: 2 PCP: No PCP. This GARO CHAUDHARI provided the pt with a PCP list in July. Pt states that he still has the list and is working on getting established. Specialists: Pt states that he is working on getting established with an Zinc Chloride Operator through [facility]. Preferred Pharmacy: [facility] Insurance: SP. Pt states that Barb has seen the pt regarding CHIKIS application. SW aware. Prescription Benefit: Good Rx. CM and SW to follow for medication costs and provide assistance as warranted. LNOK: Ameena Davidsim (SO) Living Arrangements: Pt lives with his SO in a single story home with 4 steps to enter ADLs/IADLs: Ind Transportation: Self. SO. DME: Pt states that he has a BGM. Pt states that he has enough ETOH swabs and lancets. Pt states that he is getting low on test strips. Pt states that he gets these at [facility] and that he is able to afford more and declines concerns. Pt reports that he takes insulin shots. Pt also reports that he may f/u and take a class to get approved for an insulin pump. Pt denies needs or concerns regarding managing his DM. Pt states that he now has all of the resources he needs to better manage this. HHC/SNF: denies Hx or needs. Pt?s goal: home Plan: Home, follow for medication costs and affordability. Pt denies other homegoing needs and states that he feels safe returning home with his SO at the time of DC and declines further needs at this time. GEOGRAPHY DEPARTMENT CHAIR CM updated. Oc Taylor RN, CM
--- NOTE | 2024-11-06 14:47 | PCM.DC ---
Discharge Instructions Diet Discharge Diet: 2200 Calorie Control Diet DC O2, CPAP, BIPAP needs Home O2 Discharge instructions: No Dressing / Incision Discharge Activity: Return to Normal Activity Weight Bearing Status: Full weight bearing Follow Up Care Test Results: Test results from this visit will be discussed in further detail at your follow-up appointment, if applicable. Discharge Plan Admission Admit Date/Time: 11/04/24 23:08 Primary Reason for Your Visit: DKA Attending Provider: Peter Toth Primary Care Provider: Care Physician,No Primary Consulting Providers: Izaiah Varela; Charity Michele Instructions Additional Instructions / Restrictions: Follow-up with Stefany William at [facility]-[phone] in the next 2 weeks-call for an appointment Discharge Orders/Prescriptions Prescriptions: New insulin glargine-yfgn 100 unit/mL (3 mL) Insulin Pen 25 unit subcut QHS Qty: 15 0RF insulin lispro [Humalog KwikPen Insulin] 100 unit/mL insulin pen 10 unit subcut TID Qty: 15 0RF (DME) pen needle, diabetic 31 gauge x 1/3 needle See Rx Instructions .Route Qty: 100 0RF Rx Instructions: As directed Discontinued insulin lispro 100 unit/mL insulin pen 1 sliding scale dose SUBCUT Patient Comments: INJECT SUBCUTANEOUSLY DIRECTED THREE TIMES DAILY PLUS SLIDING SCALE, APPROXIMATELY 50 UNITS DAILY ( CHO RATIO OF 1-8 FOR MEALS AND SNACKS) Referrals / Follow Up: Care Physician,No Primary [Primary Care Provider] - Disposition Disposition (needs filled in before D/C Order can be placed): Home, Self Care
--- NOTE | 2024-11-06 14:53 | CHAPLAIN ---
Type of Pastoral Visit _x__ Initial Visit ___ Follow-up Visit ___ On-call Visit ___ General Patient Visit ___ Spiritual Assessment ___ Family Conference ___ Bereavement ___ Rapid Response ___ Code Blue ___ Other (describe below) Pastoral Care Referral From _x__ Patient ___ Family ___ Nurse ___ Physician ___ Assistant Community Manager ___ Microfilm Mounter ___ Other (describe below) Sacrament/Intervention _x__ Active listening ___ Anointing ___ Yazidi ___ Bereavement ___ Communion ___ Theresa exploration ___ ___ Life review ___ Prayer ___ Reconciliation ___ Sacrament of Sick _x__ Supportive presence ___ Wedding ___ Other (describe below) Pastoral Comments girlfriend of this patient was just leaving the room; offered support and presence to the patient who said that he just wants to go home; pt says that he has had this illness before due to his health condition and that he is handling it fine; pt denies needs
--- NOTE | 2024-11-06 15:03 | CASEMGMT ---
EMILY notified GARO CHAUDHARI pt to be DCd. Meds sent to [facility] retail pharmacy. GARO CHAUDHARI called to get cost, pt does not have insurance coverage. Pharmacy will call back with cost once they have it.
--- NOTE | 2024-11-06 15:04 | PCM.DC.SUM ---
Providers Date of Admission: 11/04/24 Date of Discharge: 11/06/24 Primary Care Physician: No Primary Care Phys Reason For Visit: DKA; WITH N/V/D AND ABDOMINAL PAIN Diagnosis Discharge Diagnosis (1) DKA (diabetic ketoacidosis): Status: Acute Code(s): E11.10 - Type 2 diabetes mellitus with ketoacidosis without coma Qualifiers: Diabetes mellitus complication detail: without coma Diabetes mellitus type: type 1 Qualified Code(s): E10.10 - Type 1 diabetes mellitus with ketoacidosis without coma Plan 1. DKA secondary to uncontrolled type 1 diabetes #2 hypokalemia #3 noncompliance with medical treatment #4 acute kidney injury #5 hyperkalemia secondary to DKA Medications at Discharge Home Medications insulin glargine-yfgn 100 unit/mL (3 mL) subcutaneous pen 25 unit (0.25 mL) subcut QHS #15 mL 11/06/24 insulin lispro 100 unit/mL subcutaneous pen (Humalog KwikPen (U-100) Insulin) 10 unit (0.1 mL) subcut TID #15 mL 11/06/24 pen needle, diabetic 31 gauge x 1/3 #100 ea 11/06/24 Hospital Course Operations None Procedures None Summary of Care Provided Minutes Spent on Discharge: 31 Hospital Course: This 29-year-old white male was seen in the emergency room at [facility] due to the fact his blood sugars have been running high for several days and he had nausea and vomiting along with diarrhea. Patient was fearful he was in DKA, patient is noncompliant with his medical treatment and has not seen his blueprint engineer in several months. Workup in the emergency room included labs which were remarkable for an elevated white blood cell count 11.1, potassium was elevated at 5.4, bicarb was 6.6, anion gap was 37, creatinine was 1.46, and glucose was 629. Patient's urinalysis was negative for RBCs WBCs and bacteria, positive for urine glucose at 1000. Patient was admitted to ICU and placed on insulin drip and given IV fluids, patient was ultimately moved out to PCU for further care, patient's insulin drip had to be restarted on PCU but then it was discontinued. On 11/06/2024, patient was seen and examined: On examination he appeared in good health and spirits. Vital signs as documented. Skin warm and dry and without overt rashes. Neck without JVD, neck was supple, trachea midline, thyroid was normal. Lungs clear bilaterally, normal air movement was noted. Heart exam notable for regular rhythm, normal sounds and absence of murmurs, rubs or gallops. Abdomen unremarkable and without evidence of organomegaly, masses, or abdominal aortic enlargement. Bowel sounds are present, abdomen is not distended. Extremities nonedematous, no cyanosis was noted, no clubbing was noted. Neuro: Cranial nerves II through XII are grossly intact, no focal motor deficits were noted, sensation to light touch and pinprick intact, motor exam 5/5 throughout. Psych: Patient is alert and oriented x3, he does not appear anxious or depressed, he does not appear agitated. I contacted the patient's blueprint engineer who had not seen the patient since January of last year, they indicated the patient was supposed to be on 24 units of Lantus at bedtime and 10 units of Humalog 3 times daily along with sliding scale insulin. Patient was felt to be stable for discharge home on 11/06/2024, he was instructed to follow-up with his blueprint engineer. Weight / BMI Weight Weight: 82.9 kg Body Mass Index (BMI) 24.7 ABG / Lab / Microbiology Data 11/06/24 05:15 11/06/24 12:54 Laboratory: Laboratory Results - last 24 hr 11/05/24 22:17: POC Glucose 416 H 11/05/24 23:31: Sodium 135, Potassium 3.4, Chloride 100, Carbon Dioxide 16.1 L, Anion Gap 18 H, BUN 14, Creatinine 1.17, Estim Creat Clear Calc 102.25, Est GFR (MDRD) Non-Af 87, BUN/Creatinine Ratio 12.0, Glucose 270 H, Calcium 8.6, b-Hydroxybutyric mmol/L 2.5 11/06/24 00:45: POC Glucose 133 H 11/06/24 01:34: Sodium 139, Potassium 3.1 L, Chloride 106, Carbon Dioxide 21.0, Anion Gap 12, BUN 12, Creatinine 0.97, Estim Creat Clear Calc 123.33, Est GFR (MDRD) Non-Af 109, BUN/Creatinine Ratio 12.1, Glucose 112 H, Calcium 8.6 11/06/24 01:39: POC Glucose 113 H 11/06/24 02:01: POC Glucose 124 H 11/06/24 03:01: POC Glucose 124 H 11/06/24 04:00: POC Glucose 101 11/06/24 05:00: POC Glucose 92 11/06/24 05:15: WBC 5.1, RBC 4.40 L, Hgb 13.3, Hct 37.4 L, MCV 85.0, MCH 30.2, MCHC 35.6, RDW Std Deviation 39.2, RDW Coeff of Willam 12.7, Plt Count 213, MPV 8.8, Sodium 140, Potassium 2.9 L, Chloride 108, Carbon Dioxide 23.2, Anion Gap 9, BUN 9, Creatinine 0.81, Estim Creat Clear Calc 147.70, Est GFR (MDRD) Non-Af 123, BUN/Creatinine Ratio 11.3, Glucose 84, Calcium 8.4, Phosphorus 2.4 L 11/06/24 06:02: POC Glucose 87 11/06/24 06:57: POC Glucose 76 11/06/24 08:04: POC Glucose 68 L 11/06/24 08:26: POC Glucose 102 11/06/24 08:47: Sodium 139, Potassium 3.0 L, Chloride 107, Carbon Dioxide 22.7, Anion Gap 9, BUN 8, Creatinine 0.78, Estim Creat Clear Calc 153.38, Est GFR (MDRD) Non-Af 124, BUN/Creatinine Ratio 10.4, Glucose 90, Calcium 8.4, b-Hydroxybutyric mmol/L 0.1 11/06/24 10:02: POC Glucose 78 11/06/24 11:04: POC Glucose 80 11/06/24 12:54: Sodium 141, Potassium 3.3, Chloride 107, Carbon Dioxide 22.8, Anion Gap 11, BUN 7, Creatinine 0.79, Estim Creat Clear Calc 151.43, Est GFR (MDRD) Non-Af 124, BUN/Creatinine Ratio 8.8 L, Glucose 67 L, Calcium 8.5 ABG: ABG 11/05/24 11/06/24 23:40 05:23 Specimen Type CHRISTINA ART Sample Site Not entered R Radial pH 7.37 Bicarbonate Actual 25.1 Total CO2 26 Base Excess 0 O2 Saturation 96 ABG pCO2 43.2 ABG pO2 82 Abraham Test Positive VBG pH 7.30 L VBG pO2 38 VBG HCO3 17 L VBG Total CO2 18 L VBG O2 Sat (Calc) 66 VBG Base Excess -10 L POC Mix VBG pCO2 Pt Tmp 34.3 L O2 Delivery Device Room Air Not entered Vent Mode Not entered D/C Instructions Discharge Diet: 2200 Calorie Control Diet Weight Bearing Status: Full weight bearing DC O2, CPAP, BIPAP Needs Home O2 Discharge instructions: No Meaningful Use Info Meaningful Use Meaningful Use Diagnoses (Choose all that apply): None applicable Ischemic Stroke Statin Dosing Therapy Reference: STATIN DOSE THERAPY REFERENCE: * Patients > 75 years receive moderate or high dose statin therapy. * Patients 75 years or YOUNGER should receive HIGH intensity statin dose unless contraindicated. You will be required to document reason for non-treatment if statin daily dose does not meet guidelines. HIGH DOSE STATIN THERAPY DAILY Atorvastatin > than or = to 40 mg Rosuvastatin > than or = to 20 mg Amlodipine + Atorvastatin > than or = to 2.5/40 mg Ezetimibe + Simvastatin 10/80 mg Simvastatin 80mg Discharge Plan Admission Admit Date/Time: 11/04/24 23:08 Primary Reason for Your Visit: DKA Attending Provider: Peter Toth Primary Care Provider: Care Physician,No Primary Consulting Providers: Izaiah Varlea; Charity Michele Instructions Additional Instructions / Restrictions: Follow-up with Stefany William at [facility]-[phone] in the next 2 weeks-call for an appointment Discharge Orders/Prescriptions Prescriptions: New insulin glargine-yfgn 100 unit/mL (3 mL) Insulin Pen 25 unit subcut QHS Qty: 15 0RF insulin lispro [Humalog KwikPen Insulin] 100 unit/mL insulin pen 10 unit subcut TID Qty: 15 0RF (DME) pen needle, diabetic 31 gauge x 1/3 needle See Rx Instructions .Route Qty: 100 0RF Rx Instructions: As directed Discontinued insulin lispro 100 unit/mL insulin pen 1 sliding scale dose SUBCUT Patient Comments: INJECT SUBCUTANEOUSLY DIRECTED THREE TIMES DAILY PLUS SLIDING SCALE, APPROXIMATELY 50 UNITS DAILY ( CHO RATIO OF 1-8 FOR MEALS AND SNACKS) Referrals / Follow Up: Care Physician,No Primary [Primary Care Provider] - Disposition Disposition (needs filled in before D/C Order can be placed): Home, Self Care Charges/Coding Visit Charges Inpatient E&M: 97501 Disch Hosp >30min
--- NOTE | 2024-11-06 15:35 | CASEMGMT ---
Pharmacy called RN CM, gave cost for medications - $342.58. Informed pharmacy RN CM will send Rx assist form to them. EMILY provided RN CM with Rx assist form, sent to retail pharmacy. Asked pharmacy to deliver meds to pt room. RN CM into pt room, informed Pt med costs are $342.58. Informed pt of one time Rx assist program, discussed going to [facility] in the future for medications. Pt applied for [facility], waiting to see if approved. pt denies any additional needs at this time.
--- NOTE | 2024-11-06 15:50 | PHA.DC.MC.R ---
Pharmacy [facility] has performed discharge medication reconciliation and counseling for this patient. 1. INSULIN GLARGINE 25UNITS SC QHS The patient's discharge medication list was reviewed for discrepancies and discrepancies were resolved. The patient was counseled on the following discharge medications and changes in medications for homegoing were reviewed. The Reason for Use, instructions for use, and potential side effects were reviewed for all new medications. The patient's questions regarding all of their medications were answered. The patient was able to verbally demonstrate an understanding of their discharge medications. Medications at Discharge Home Medications insulin glargine-yfgn 100 unit/mL (3 mL) subcutaneous pen 25 unit (0.25 mL) subcut QHS #15 mL 11/06/24 insulin lispro 100 unit/mL subcutaneous pen (Humalog KwikPen (U-100) Insulin) 10 unit (0.1 mL) subcut TID #15 mL 11/06/24 pen needle, diabetic 31 gauge x 1/3 #100 ea 11/06/24
== END 2024-11-06 16:20 | disposition home or self-care (01) | DRG 638 ==
LOC: ED 22:15 → ICU 23:25 → PCU 11-05 18:09
PROVIDERS: Internal Medicine; Admitting Provider Internal Medicine; Emergency Provider Emergency Medicine; Visit Provider Internal Medicine
DX: E10.10 Type 1 diabetes mellitus with ketoacidosis without coma (principal); N17.9 Acute kidney failure, unspecified; Z79.4 Long term (current) use of insulin; K52.9 Noninfective gastroenteritis and colitis, unspecified; E87.5 Hyperkalemia; E86.0 Dehydration; E87.6 Hypokalemia; F17.210 Nicotine dependence, cigarettes, uncomplicated; Z91.199 Patient's noncompliance with other medical treatment and regimen due to unspecified reason
CPT/HCPCS: 36415; 36600; 80048; 80307; 81001; 82010; 82077; 82607; 82746; 82803; 82962; 83036; 83735; 84100; 84443; 85025; 85027; 93005; 94762; 97803; 99285; A4216; J2405

== ENCOUNTER 2025-07-04 10:50 | Inpatient (IN) | payer SELFPAY ==
[2025-07-04] VITALS (12 sets, daily range): BP systolic 108–147; BP diastolic 47–91; PULSE 74–104; RESP 12–19; TEMP 36.6–37.1; O2SAT 98–100; BMI 26.8; BMI 27.1
--- NOTE | 2025-07-04 11:28 | EKG12_ITS ---
Test Reason : DKA Blood Pressure : */* mmHG Vent. Rate : 86 BPM Atrial Rate : 86 BPM P-R Int : 154 ms QRS Dur : 94 ms QT Int : 366 ms P-R-T Axes : 73 83 45 degrees QTcB Int : 437 ms Normal sinus rhythm Normal ECG Confirmed by LINDY ELIZABETH, RUSH ([id number]), newspaper copy editor SHERRY PATIÑO ([id number]) on 07/09/2025 8:24:03 AM Referred By: Confirmed By: RUSH ISRAEL MD
[2025-07-04 11:44] LABS: Hematocrit 50.4 % (40-54); Immature Granulocytes Count 0.020 X10^3/uL (0.0-0.0); Mean Corp Hgb Conc 35.9 g/dL (32-36); Mean Corpuscular Volume 86.7 fL (80-94); Mean Platelet Vol. 9.0 fl (6.2-12.0); NRBC Flagged by Analyzer 0 % (0-5); Platelet Count 321 K/mm3 (150-450); RBC Distribution Width CV 12.7 % (11.6-14.6); RBC Distribution Width SD 39.8 fl (35.1-43.9); Red Blood Count 5.81 M/mm3 (4.6-6.2); White Blood Count 6.4 K/mm3 (4.4-11.0)
[2025-07-04 11:47] LABS: Hemoglobin 18.1 g/dL (13.0-16.5)
[2025-07-04 12:15] LABS: AST(SGOT) 20 U/L (<=37); Alanine Aminotransfer ALT/SGPT 32 U/L (<=46); Albumin, Serum 4.5 g/dL (3.5-5.0); Alkaline Phosphatase 136 U/L (40-129); Anion Gap 26 (5-15); BUN 14 mg/dL (4-19); BUN/Creat Ratio 11.5 RATIO (10-20); Calcium,Total 9.2 mg/dL (7.6-11.0); Carbon Dioxide 15.5 mmol/L (21.0-32.0); Chloride 92 mmol/L (98-108); Globulin 2.8 g/dL (2.2-4.2); Glucose 404 mg/dL (70-99); Lipase 33 U/L (13-75); Potassium 4.3 mmol/L (3.3-5.1)
[2025-07-04 12:31] LABS: BETA-HYDROXYBUTYRATE 8.5 mmol/L (0.0-0.3)
[2025-07-04] MEDS: 0.9% Normal Saline (1000mL) 1,000 ML 999 ML IV ×2 (13:06→14:07)
[2025-07-04 13:08] LABS: Mucous, Urine 0 SEEN /hpf (<or=2+); Red Blood Cells-Urine 0 SEEN /hpf (0-5)
[2025-07-04 13:10] LABS: Color, Urine Yellow (Yellow); Glucose, Dipstick 1000 mg/dl (Normal); Leukocyte Esterase-Dipstick Negative /ul (Negative); Nitrite-Dipstick Negative (Negative); Occult Blood-Urine Negative /ul (Negative); Protein-Dipstick 30 mg/dl (Negative); Specific Gravity, Urine 1.025 (1.002-1.030); Urine Bilirubin Dipstick Negative (Negative)
[2025-07-04 13:22] LABS: Squamous Epithelial Cells - UA 0-5 SEEN /hpf (0-5)
[2025-07-04 13:23] LABS: Fine Granular Cast- Urine 5-10 SEEN /lpf (0-5)
--- NOTE | 2025-07-04 13:23 | EX.ED.DYSGE1 ---
HPI History of Present Illness Chief Complaint: Hyperglycemia Narrative Narrative: Patient is a 30-year-old male past medical history of type 1 diabetes, DKA who presents to the emergency department with concern for being in DKA. Patient states that for the past few days he has been feeling unwell with vomiting he states that he went to [facility] yesterday and he states that they placed him on insulin drip for a few hours approximately 3-4 and sent him home. He states that he has been out of his long-acting insulin now for about a month and a half and inquiring why he has not picked this up or refilled this he states that it is over thousand dollars for him. [facility] Medical History Hyperkalemia Tobacco abuse Leukocytosis Metabolic acidosis Nausea, vomiting and diarrhea Acute dehydration Acute dehydration Abdominal pain ZAHIDA (acute kidney injury) DKA (diabetic ketoacidosis) Pyloric stenosis Type 1 diabetes Home Medications Medication Instructions Recorded Last Taken Type insulin glargine-yfgn 100 unit/mL 25 unit (0.25 mL) subcut QHS #15 mL 11/06/24 Unknown Rx (3 mL) subcutaneous pen insulin lispro 100 unit/mL 10 unit (0.1 mL) subcut TID #15 mL 11/06/24 Unknown Rx subcutaneous pen (Humalog KwikPen (U-100) Insulin) pen needle, diabetic 31 gauge x #100 ea 11/06/24 Unknown Rx 1/3" Allergy/AdvReac Type Severity Reaction Status Date / Time No Known Allergies Allergy Verified 07/04/25 10:50 Social History Smoking Status: Heavy Smoker (>10/day) ROS ROS ED ROS Narrative Constitutional: Denies any fevers, chills, headaches Eyes: Denies change in vision double vision blurry vision Cardiovascular: Denies chest pain Respiratory: Denies coughing wheezing shortness of breath Abdomen: Complains of nausea and vomiting as noted above denies any abdominal pain : Denies urinary symptoms Neurological: Denies any numbness, wheeze, tingling Musculoskeletal: Denies back pain Skin: Denies any rashes or lesions EXAM Physical Exam Narrative Exam Narrative: General: Patient lying in bed rest comfortably did not appear to be in acute distress Head: Atraumatic, normocephalic Eyes: PERRL bilaterally, EOMI bilaterally, no conjunctival injection noted Neck: Soft, supple, trachea midline Cardiovascular: Patient tachycardic with a regular rhythm Respiratory: Clear to auscultation bilaterally Abdomen: Soft, nondistended, nontender to palpation Extremities: +5/5 strength noted in the bilateral lower extremities Neurological: Patient following commands knew that he was at [facility] years 2024 Skin: Warm, dry, intact no rashes or lesions noted Const Vital Signs: 07/04/25 10:51 07/04/25 13:11 Temperature 98.7 F Temperature Source Oral Pulse Rate 104 H 88 Respiratory Rate 18 16 Blood Pressure 147/91 H 130/80 H Blood Pressure Mean 109 96 Pulse Ox 98 100 Oxygen Delivery Method Room Air MDM MDM MDM Narrative Medical decision making narrative: patient is a 30-year-old male who presented to the emergency department with a chief complaint concern for DKA. Patient workup started out in triage. On the differential diagnosis includes but to HHS, DKA, viral gastroenteritis. Once workup is obtained and reviewed he will be reevaluated. Patient CBC reviewed showed no evidence leukocytosis white blood count normal at 6.4, he was 18.1 likely hemoconcentrated, plate count 321. Patient was 133, potassium normal at 4.3, creatinine was 1.22 glucose elevated at 404 with an anion gap of 26. Patient's, dioxide level low at 15.5. Patient AST and ALT were 20 and 32 respectively beta-hydroxybutyrate elevated 8.5. Patient urinalysis reviewed showed no evidence infection had significant amount of ketones under 50. Patient was ordered 2 L of IV fluids and will order insulin drip. Will discuss case with hospitalist for admission. Discussed case with hospitalist Dr. Sheikh who will accept patient for admission. Patient notified is agreeable to plan all course concerns answered. Critical care time 37 minutes Lab Data Labs: Laboratory Results - last 24 hr 07/04/25 07/04/25 11:20 13:04 WBC 6.4 RBC 5.81 Hgb 18.1 H* Hct 50.4 MCV 86.7 MCH 31.2 MCHC 35.9 RDW Std Deviation 39.8 RDW Coeff of Willam 12.7 Plt Count 321 MPV 9.0 Immature Gran % (Auto) 0.300 Neut % (Auto) 57.9 Lymph % (Auto) 27.5 Snyder % (Auto) 8.8 Eos % (Auto) 4.2 Baso % (Auto) 1.3 H Absolute Neuts (auto) 3.7 Absolute Lymphs (auto) 1.76 Nucleated RBC % 0 Sodium 133 Potassium 4.3 Chloride 92 L Carbon Dioxide 15.5 L Anion Gap 26 H BUN 14 Creatinine 1.22 H Est GFR (MDRD) Non-Af 82 BUN/Creatinine Ratio 11.5 Glucose 404 H Calcium 9.2 Total Bilirubin 0.58 AST 20 ALT 32 Alkaline Phosphatase 136 H Total Protein 7.3 Albumin 4.5 Globulin 2.8 Albumin/Globulin Ratio 1.6 Lipase 33 b-Hydroxybutyric mmol/L 8.5 H Urine Color Yellow Urine Clarity Clear Urine pH 5.0 Ur Specific Terry 1.025 Urine Protein 30 H Urine Glucose (UA) 1000 H Urine Ketones 150 A* Urine Occult Blood Negative Urine Nitrite Negative Urine Bilirubin Negative Urine Urobilinogen Normal Ur Leukocyte Esterase Negative Urine RBC 0 SEEN Urine WBC 0-5 SEEN Ur Squamous Epith Cells 0-5 SEEN Urine Bacteria 0 SEEN Fine Granular Casts 5-10 SEEN Coarse Granular Casts 0-5 SEEN Urine Mucus 0 SEEN ABG Data ABG results: ABG 07/04/25 13:27 Specimen Type CHRISTINA Sample Site Not entered VBG pH 7.32 VBG pO2 56 H VBG HCO3 13 L VBG Total CO2 14 L VBG O2 Sat (Calc) 87 H VBG Base Excess -13 L POC Mix VBG pCO2 Pt Tmp 25.7 L O2 Delivery Device Not entered Discharge Plan Dx/Rx/DC Orders Clinical Impression: Hyperglycemia, Diabetic ketoacidosis Disposition Disposition: [facility] D/C Safety Score for UGIB Assessment [place] Bleeding Score (GBS): Stratifies upper GI bleeding patients who are "low-risk" and candidates for outpatient management. Hemoglobin, BUN, Recent Vital Signs: Hgb 18.1 g/dL (13.0-16.5) H* 07/04/25 11:20 BUN 14 mg/dL (4-19) 07/04/25 11:20 Pulse Rate 88 Blood Pressure 130/80 Score Interpretation: Score of 0: A GBS of 0 is a “Low Risk” GI bleed, and is highly sensitive (99.6% in a 2007 retrospective study) for predicting which patients did not require any “medical intervention”: blood transfusion, endoscopy, or surgery. This was confirmed in a 2009 Lancet study where patients with a score of 0 were actually discharged and had no GI bleeding mortality at 6 month followup Score above 0: A GBS greater than zero suggests a “High Risk” GI bleed that is likely to require “medical intervention”: transfusion, endoscopy, or surgery. A higher GBS also correlated with a higher likelihood of needing intervention Scores >/= 6 are associated with >50% risk of needing intervention D/C Safety Score for LGIB Assessment Assessment Tool: Readmission and adverse event risk in patients with acute lower GI bleeding. Hemoglobin and Recent Vital Signs: Hgb 18.1 g/dL (13.0-16.5) H* 07/04/25 11:20 Pulse Rate 88 07/04/25 13:11 Blood Pressure 130/80 07/04/25 13:11 Score Interpretation: Probability Percentage of safe discharge (absence of rebleeding, blood transfusion, therapeutic intervention, 28 day readmission, or ) Score of 8 or below: Consider discharge, with appropriate precautions. Score of 9 or above: Discharge NOT recommended. Consider admission with further workup and resuscitation as necessary.
[2025-07-04 13:31] LABS: SITE Not entered; VBG BASE EXCESS -13 mmol/L (-1.0-3.5); VBG PO2 56 mmHg (25-40); VBG SO2 87 % (50-70); VBG TCO2 14 mmol/L (23-33)
--- NOTE | 2025-07-04 13:44 | PCM.HP.STD ---
HPI - General General Date of Admission: 07/04/25 Date of Service: 07/04/25 Chief Complaint: DKA HPI Narrative MONAE GARCÍA, is a 30 M with a PMH as outlined which includes type 1 DKA who was admitted via the ED on 07/04/2025 with a complaitn of general feeling of unwellness, with associated vomiting. HE said he went to an outside hospital the day before admission and said he was put on insulin drip for a few hours and sent home. HE however did not feel well when he went home and continued to deteriorate so he came to the ED. He denied any fever, chills, chest pain, palpitations, dizziness, nausea, vomiting or any other symptoms. Review of systems was otherwise negative. He said he had been out of his long-acting insulin for about a month and a half now due to cost. Vitals in the ED were blood pressure 150/80, pulse rate of 88 and respirate rate of 16. He is saturating at 100% on room air. CBC showed hemoglobin of 18.1 with WBC of 6.4 and platelets of 321. Chemistry showed sodium of 133 with potassium of 4.3 and bicarb of 15.5. Anion gap is 26 and creatinine is 1.22. Glucose is 404. Serum hydroxybutyrate is elevated at 8.5 and ALP is 136. Urinalysis showed elevated ketones and glucose but no evidence of UTI. He has been admitted to be managed for DKA in a type I diabetic due to noncompliance with insulin. He will be admitted to the ICU. [facility] Medical History Hyperkalemia Tobacco abuse Leukocytosis Metabolic acidosis Nausea, vomiting and diarrhea Acute dehydration Acute dehydration Abdominal pain ZAHIDA (acute kidney injury) DKA (diabetic ketoacidosis) Pyloric stenosis Type 1 diabetes Home Medications Medication Instructions Recorded Last Taken Type insulin glargine-yfgn 100 unit/mL 25 unit (0.25 mL) subcut QHS #15 mL 11/06/24 Unknown Rx (3 mL) subcutaneous pen insulin lispro 100 unit/mL 10 unit (0.1 mL) subcut TID #15 mL 11/06/24 Unknown Rx subcutaneous pen (Humalog KwikPen (U-100) Insulin) pen needle, diabetic 31 gauge x #100 ea 11/06/24 Unknown Rx 08/25" Allergy/AdvReac Type Severity Reaction Status Date / Time No Known Allergies Allergy Verified 07/04/25 10:50 Social History Smoking Status: Heavy Smoker (>10/day) ROS Constitutional Constitutional: Reports anorexia, chills, fatigue, malaise and weakness; Denies fever(s) Eyes Eyes: Denies change in vision ENT HEENT: Denies dysphagia, headache(s) or sore throat Cardiovascular Cardiovascular: Denies chest pain, dyspnea on exertion, edema, lightheadedness, orthopnea, palpitations, paroxysmal nocturnal dyspnea, rapid heart rate or syncope Respiratory/Chest Respiratory/Chest: Denies cough, dyspnea, shortness of breath at rest or shortness of breath with exertion Gastrointestinal Gastrointestinal: Denies abdominal pain, constipation, dyspepsia, nausea or vomiting Genitourinary Genitourinary: Denies dysuria Musculoskeletal Musculoskeletal: Denies back pain Neurologic Neurologic: Denies confusion, dizziness, focal weakness, headache(s), numbness, seizures or syncope Psychiatric Psychiatric: Denies anxiety Vital Signs Vital Signs Vital Signs: 07/04/25 10:51 07/04/25 13:11 Temperature 98.7 F Temperature Source Oral Pulse Rate 104 H 88 Respiratory Rate 18 16 Blood Pressure 147/91 H 130/80 H Blood Pressure Mean 109 96 Pulse Ox 98 100 Oxygen Delivery Method Room Air Weight Weight: 197 lb 15.602 oz Body Mass Index (BMI) 26.8 Physical Exam Const alert, oriented x3 and no apparent distress Constitutional Narrative: looks weak HEENT normocephalic and head/scalp atraumatic HEENT Narrative: dry oral mucosal membranes Eyes EOMs intact bilaterally and conjunctivae normal Neck supple and no JVD Resp normal respiratory effort, no retractions, no use of accessory muscles and clear to auscultation bilaterally Cardio regular rate, regular rhythm, S1 normal heart sound, S2 normal heart sound and no murmurs GI normal to inspection, nondistended, normoactive bowel sounds, soft to palpation, non-tender and non-distended Extremity normal to inspection, full ROM and no clubbing, cyanosis or edema Neuro oriented x3, CN's II-XII intact bilaterally, moves all extremities and no focal motor deficits Sensorium / Orientation: awake and alert Motor Exam: strength 5/5 throughout Psych affect normal Results Lab / Micro Data 07/04/25 11:20 07/04/25 11:20 Labs: Laboratory Results - last 24 hr 07/04/25 11:20: WBC 6.4, RBC 5.81, Hgb 18.1 H*, Hct 50.4, MCV 86.7, MCH 31.2, MCHC 35.9, RDW Std Deviation 39.8, RDW Coeff of Willam 12.7, Plt Count 321, MPV 9.0, Immature Gran % (Auto) 0.300, Neut % (Auto) 57.9, Lymph % (Auto) 27.5, [place] % (Auto) 8.8, Eos % (Auto) 4.2, Baso % (Auto) 1.3 H, Absolute Neuts (auto) 3.7, Absolute Lymphs (auto) 1.76, Nucleated RBC % 0, Sodium 133, Potassium 4.3, Chloride 92 L, Carbon Dioxide 15.5 L, Anion Gap 26 H, BUN 14, Creatinine 1.22 H, Est GFR (MDRD) Non-Af 82, BUN/Creatinine Ratio 11.5, Glucose 404 H, Calcium 9.2, Total Bilirubin 0.58, AST 20, ALT 32, Alkaline Phosphatase 136 H, Total Protein 7.3, Albumin 4.5, Globulin 2.8, Albumin/Globulin Ratio 1.6, Lipase 33, b-Hydroxybutyric mmol/L 8.5 H 07/04/25 13:04: Urine Color Yellow, Urine Clarity Clear, Urine pH 5.0, Ur Specific Lester 1.025, Urine Protein 30 H, Urine Glucose (UA) 1000 H, Urine Ketones 150 A*, Urine Occult Blood Negative, Urine Nitrite Negative, Urine Bilirubin Negative, Urine Urobilinogen Normal, Ur Leukocyte Esterase Negative, Urine RBC 0 SEEN, Urine WBC 0-5 SEEN, Ur Squamous Epith Cells 0-5 SEEN, Urine Bacteria 0 SEEN, Fine Granular Casts 5-10 SEEN, Coarse Granular Casts 0-5 SEEN, Urine Mucus 0 SEEN ABG Data ABG results: ABG 07/04/25 13:27 Specimen Type CHRISTINA Sample Site Not entered VBG pH 7.32 VBG pO2 56 H VBG HCO3 13 L VBG Total CO2 14 L VBG O2 Sat (Calc) 87 H VBG Base Excess -13 L POC Mix VBG pCO2 Pt Tmp 25.7 L O2 Delivery Device Not entered Assessment & Plan Assessment/Plan (1) Diabetic ketoacidosis: (2) Hyperglycemia: PLAN: Plan #DKA in a known type I diabetic due to noncompliance with insulin Admit to ICU. Anion gap is 26 with bicarb of 15.5. Glucose is 404. Serum hydroxybutyrate is markedly elevated. Started on insulin drip per DKA protocol. Also hydrate with IV fluids per DKA protocol. Potassium is 4.3. Will manage electrolytes per DKA protocol. Consult critical care. Once blood glucose falls to below 250 and anion gap closes x 2 will transition to home dose of long-acting insulin and insulin sliding scale. Keep n.p.o. for now. DVT prophylaxis: Lovenox CODE STATUS: Full code Charges/Coding Visit Charges Inpatient E&M: 76994 Init Hosp L3 D/C Safety Score for UGIB Assessment [place] Bleeding Score (GBS): Stratifies upper GI bleeding patients who are "low-risk" and candidates for outpatient management. Hemoglobin, BUN, Recent Vital Signs: Hgb 18.1 g/dL (13.0-16.5) H* 07/04/25 11:20 BUN 14 mg/dL (4-19) 07/04/25 11:20 Pulse Rate 88 Blood Pressure 130/80 Score Interpretation: Score of 0: A GBS of 0 is a “Low Risk” GI bleed, and is highly sensitive (99.6% in a 2007 retrospective study) for predicting which patients did not require any “medical intervention”: blood transfusion, endoscopy, or surgery. This was confirmed in a 2009 [facility] study where patients with a score of 0 were actually discharged and had no GI bleeding mortality at 6 month followup Score above 0: A GBS greater than zero suggests a “High Risk” GI bleed that is likely to require “medical intervention”: transfusion, endoscopy, or surgery. A higher GBS also correlated with a higher likelihood of needing intervention Scores >/= 6 are associated with >50% risk of needing intervention D/C Safety Score for LGIB Assessment Assessment Tool: Readmission and adverse event risk in patients with acute lower GI bleeding. Hemoglobin and Recent Vital Signs: Hgb 18.1 g/dL (13.0-16.5) H* 07/04/25 11:20 Pulse Rate 88 07/04/25 13:11 Blood Pressure 130/80 07/04/25 13:11 Score Interpretation: Probability Percentage of safe discharge (absence of rebleeding, blood transfusion, therapeutic intervention, 28 day readmission, or ) Score of 8 or below: Consider discharge, with appropriate precautions. Score of 9 or above: Discharge NOT recommended. Consider admission with further workup and resuscitation as necessary.
[2025-07-04 14:17] LABS: Magnesium 1.8 mg/dL (1.5-2.2)
[2025-07-04] MEDS: Insulin Lispro 100 UNIT in 0.9% Normal Saline (100mL Bag) 99 ML CONT INF (16:43)
[2025-07-04] MEDS: DEXTROSE 5% IV (16:53)
[2025-07-04] MEDS: WATER IV (16:53)
[2025-07-04] MEDS: POTASSIUM CHLORIDE IV (16:53)
--- OUTSIDE RECORDS SUMMARY | 2025-07-04 18:35 | XMS RPT_ITS | CCD ---
Author Organization [facility] Care Team Providers Care Jackhammer Operator Name Role Phone ANG KLEIN Unavailable Unavailabl e BRISSA, [facility] Primary Care Unavaila ble BRISSA, [facility] Attending Unavaila ble BRISSA, [facility] Admitting Unavaila ble No, Physician Primary Care Provider Unavailabl e No, Physician Primary Care Provider Unavailabl e Cory Vargas MD, [place] Kraftena Primary Care Pro vider No, Physician Primary Care Provider Unavailabl e No, Physician Primary Care Provider Unavailabl e No, Physician Primary Care Provider Unavailabl e CHRISTIAN EDMONDSON Attending Unavailable NO, PHYSICIAN Primary Care Unavailable [facility] Consulting Unavai lable NO, PHYSICIAN Primary Care Unavailable FLACO MIX Admitting Unavail able MATTHEW DAWKINS Attending Unavailable [facility] Consulting Un available NO, PHYSICIAN Primary Care Unavailable MOOMAW, ABDIEL CAITIE Attending Unavailable MOOMAW, ABDIEL CAITIE Referring Unavailable SAWYER TA Admitting Unavailable CAMRYN MENA Attending Unavailabl e NO, PHYSICIAN Primary Care Unavailable [facility] Consulting Un available Care Physician, No Primary Primary Care Provider Unavailable Dr. Eloy Moore DO Emergency Provider [phone] Alida ELIZABETH, Dr. Gracia Admit Provider Alida ELIZABETH, Dr. Gracia Attending Provider [phone] Alida ELIZABETH, Dr. Gracia Other Provider Jose Alfredo ELIZABETH, Dr. Gallego Emergency Provider [phone] Dr. Izaiah Varela DO Admit Provider Unavail able Dr. Izaiah Varela DO Attending Provider Unav eva Veliz MD, Dr. Gallego Emergency Provider de Domo DO, Dr. Bliss Admit Provider Unavail able Varela DO, Dr. Bliss Attending Provider Unav ailable Varela DO, Dr. Bliss Other Provider Unavail able Navneet DO, Dr. Green Attending Provider [phone] Ryne ELIZABETH, Dr. Nash Other Provider Ryne ELIZABETH, Dr. Nash Attending Provider [phone] RIGO WILLIAM Attending Unavailable NO, PHYSICIAN Primary Care Unavailable RIGO WILLIAM Attending Unavailable NELSY, PHYSICIAN Primary Care Unavailable Izaiah Varela Admitting Unavailable de Izaiah Oliveros Consulting Unavailable Izaaih Varela Attending Unavailable Care Physician, No Primary Primary Care Unava ilable Izaiah Varela Consulting Unavailable Peter Toth Attending Unavailable Varela, Izaiah Admitting Unavailable Care Physician, No Primary Primary Care Unava ilable Charity Michele Consulting Unavailable Basil Escobar Attending Unavailable Basil Escobar Admitting Unavailable Basil Escobar Consulting Unavailable Care Physician, No Primary Primary Care Unava ilable Basil Escobar Attending Unavailable Care Physician, No Primary Primary Care Unava ilable Charity Michele Attending Unavailable Care Physician, No Primary Referring Unava ilable Marianne Dickinson Attending Unavailable Town Doctor, Out of Primary Care Unavailable Provider, Ed Physician Attending Unavailab le Jonathan Doctor, Out of Primary Care Unavailable Izaiah Varela Admitting Unavailable Peter Toth Attending Unavailable Izaiah Varela Consulting Unavailable Care Physician, No Primary Primary Care Unava ilable Charity Michele Unavailable Basil Escobar Attending Unavailable Basil Escobar Admitting Unavailable Care Physician, No Primary Primary Care Unava ilable LAMINE SHAW Attending Unavailab le NO, PHYSICIAN Primary Care Unavailable Medications Current Medications Medication Drug Class(es) Dates Sig (Normalized) Sig (Original) blood-glucose sensor (Dexcom G7 Sensor) Fauzia (5 sources) Start: 04-04-2025 blood-glucose sensor (Dexcom G7 Sensor) Fauzia Indications: 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 DX . Change sensor every 10 days. . 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 DX . Change sensor every 10 days. . 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 DX . Change sensor every 10 days. . 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 DX . Change sensor every 10 days. . 3 each 01/02/2025 Active blood-glucose transmitter (Dexcom G4 Transmitter) Fauzia (1 source) Start: 08-31-2022 blood-glucose transmitter (Dexcom G4 Transmitter) Fauzia Use every 90 days . 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 Use insulin: CHO ratio of 1:10 for meals and snacks . 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 7.8 mL 0 02/03/2024 Active Start: 08-29-2023 insulin glargi ne (Lantus Solostar U-100 Insulin) 100 unit/mL (3 mL) InPn Inject 24 (twenty four) Units under the skin nightly . 7.8 mL 0 08/29/2023 Active Start: 08-29-2023 insulin glargi ne (LANTUS) injection 10 Units Start: 08-31-2022 End: 08-29-2023 insulin glargine (Lantus Alta ostar U-100 Insulin) 100 unit/mL (3 mL) InPn Inject 26 (twenty six) Units under the skin nightly . 15 mL 11 08/31/2022 08/29/2023 Discontinued (Reorder (Suppress CancelRx Message to Pharmacy)) Start: 06-16-2022 End: 08-31-2022 insulin glargine (Lantus Alta ostar U-100 Insulin) 100 unit/mL (3 mL) InPn Inject 22 (twenty two) Units under the skin nightly . 15 mL 11 06/16/2022 08/31/2022 Discontinued Start: 11-03-2021 End: 01-21-2022 insulin glargine (Lantus Alta ostar U-100 Insulin) 100 unit/mL (3 mL) InPn Inject 22 (twenty two) Units under the skin nightly . 15 mL 11 01/21/2022 Active Start: 04-25-2021 End: 11-03-2021 insulin glargine (Lantus Alta ostar U-100 Insulin) 100 unit/mL (3 mL) InPn Inject 20 (twenty) Units under the skin nightly . 6 mL 3 04/25/2021 11/03/2021 Discontinued Insulin Glargine-Yfgn 100 unit/mL (3 mL) Insulin Pen (1 source) Start: 11-06-2024 Insulin Glargi ne-Yfgn 100 unit/mL (3 mL) Insulin Pen Active 25 U SC AT BEDTIME November 06, 2024 12:00am insulin isophane, human 70 unt/ml / insulin, regular, human 30 unt/ml injectable suspension (7 sources) Insulin Start: 02-19-2021 End: 05-20-2021 insulin NPH-insulin regular 70/30 (HUMULIN 70/30) 100 unit/mL (70-30) injection Indications: Type 1 diabetes mellitus without complication (HCC) Inject 15 (fifteen) Units under the skin 2 (two) times a day before meals . 9 mL 2 02/19/2021 05/20/2021 Active Start: 02-05-2021 End: 05-06-2021 insulin NPH-insulin regular 70/30 (HUMULIN 70/30) 100 unit/mL (70-30) injection Indications: Type 1 diabetes mellitus without complication (HCC) Inject 13 (thirteen) Units under the skin 2 (two) times a day before meals . 7.8 mL 2 02/05/2021 05/06/2021 Active 3 ml insulin lispro 100 unt/ml pen injector (20 sources) Insulin Analog Start: 03-09-2025 insulin lispro (HumaLOG KwikPen Insulin) 100 unit/mL InPn Use as directed three times a day plus sliding scale, approx 60 units per day. Use insulin: CHO ratio of 1:10 for meals and snacks . 30 mL 6 03/09/2025 Active Start: 11-06-2024 Insulin Lispro (Humalog Kwikpen Insulin) 100 unit/mL insulin pen Active 10 U SC THREE TIMES A DAY November 06, 2024 12:00am Start: 11-04-2024 End: 11-06-2024 Insulin Lispro 100 unit/mL i nsulin pen Discontinued 1 sliding scale dose SC November 04, 2024 12:00am November 06, 2024 3:02pm Start: 08-29-2023 End: 08-29-2023 insulin lispro (AdmeLOG,July LOG) injection 0-15 Units Start: 08-29-2023 End: 08-29-2023 insulin lispro (AdmeLOG,July LOG) injection 0-30 Units Start: 08-29-2023 insulin lispro (AdmeLOG,HumaLOG) injection 6 Units Start: 11-01-2022 End: 02-03-2024 insulin lispro (HumaLOG Kwik Pen Insulin) 100 unit/mL InPn Indications: 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 Use insulin: CHO ratio of 1:8 for meals and snacks . 30 mL 0 02/03/2024 Active Start: 08-31-2022 insulin lispro (HumaLOG KwikPen Insulin) 100 unit/mL InPn Use as directed TID plus sliding scale, approx 50 units total per day . 30 mL 6 08/31/2022 Active Start: 06-16-2022 End: 08-31-2022 insulin lispro (HumaLOG Kwik Pen Insulin) 100 unit/mL InPn Use as directed TID plus sliding scale, approx 30 units total per day . 15 mL 11 06/16/2022 08/31/2022 Discontinued (Reorder (Suppress CancelRx Message to Pharmacy)) Start: 12-29-2021 insulin lispro (HumaLOG KwikPen Insulin) 100 unit/mL InPn Use as directed TID plus sliding scale, approx 30 units per day . 15 mL 11 12/29/2021 Active Start: 06-05-2021 End: 12-29-2021 insulin lispro (HumaLOG Kwik Pen Insulin) 100 unit/mL InPn Take 10 units plus sliding scale 3 times a day before meals for maximum daily total of 45 u/day . 15 mL 11 06/05/2021 12/29/2021 Discontinued (Reorder) Start: 04-25-2021 insulin lispro (HumaLOG KwikPen Insulin) 100 unit/mL InPn Take 10 units plus sliding scale 3 times a day before meals . 15 mL 3 04/25/2021 Active insulin lispro ( AdmeLOG,HumaLOG) 100 unit/mL injection Sliding scale BS 100-150 = 1 unit, 151-200 = 2 units, 201-250 = 3 units. 251-300 = 4 units, 301-350 = 5 units, 351-400 = 6 units with meals. . 0 Active lisinopril 2.5 mg oral tablet (4 sources) Angiotensin Converting Enzyme Inhibitor Start: 08-04-2021 End: 11-03-2022 take 1 tablet by mouth once daily lisinopriL (PRINIVIL,ZESTRIL) 2.5 MG tablet Take 1 (one) tablet (2.5 mg total) by mouth daily . 90 tablet 3 11/03/2021 11/03/2022 Active rivaroxaban 20 mg oral tablet (8 sources) Factor Xa Inhibitor Start: 02-05-2021 End: 04-06-2021 take 1 tablet by mouth once daily rivaroxaban (Xarelto) 20 mg Tab Indications: Acute deep vein thrombosis (DVT) of right upper extremity, unspecified vein (HCC) Take 1 (one) tablet (20 mg total) by mouth daily . 30 tablet 1 02/05/2021 Active Start: 01-23-2021 End: 02-05-2021 take 1 tablet by mouth twice daily rivaroxaban (Xarelto DVT-PE Treat 30d Start) 15 mg (42)- 20 mg (9) DsPk Take 1 tablet (15mg) by mouth 2 (two) times a day for 21 days. Then take 1 tablet (20mg) by mouth daily for 9 days . 51 tablet 0 01/23/2021 02/05/2021 Discontinued Completed/Discontinued Medications Medication Drug Class(es) Dates Sig (Normalized) Sig (Original) blood-glucose sensor (Dexcom G6 Sensor) Fauzia (12 sources) Start: 08-31-2022 End: 01-02-2025 blood-glucose sensor (Dexcom G6 Sensor) Fauzia Change every 10 days . 9 each 4 08/31/2022 01/02/2025 Discontinued Start: 08-31-2022 blood-glucose sensor (Dexcom G6 Sensor) Fauzia Change every 10 days . 9 each 4 08/31/2022 Start: 08-31-2022 blood-glucose sensor (Dexcom G6 Sensor) Fauzia Change every 10 days . 9 each 4 08/31/2022 Active Start: 06-16-2022 End: 08-31-2022 blood-glucose sensor (Dexcom G6 Sensor) Fauzia Change every 10 days . 9 each 4 06/16/2022 08/31/2022 Discontinued (Reorder (Suppress CancelRx Message to Pharmacy)) Start: 03-02-2022 blood-glucose sensor (Dexcom G6 Sensor) Fauzia Use to check blood sugar 4-6 times per day . 10 each 3 03/02/2022 Active 1 ml enoxaparin sodium 100 mg/ml prefilled syringe (1 source) Low Molecular Weight Heparin Start: 01-22-2021 End: 01-22-2021 enoxaparin (LOVENOX) syringe 90 mg 500 ml glucose 50 mg/ml / potassium chloride 0.02 meq/ml / sodium chloride 4.5 mg/ml injection (1 source) Start: 08-28-2023 End: 08-29-2023 150 mL/hr, Intravenous, Continuous PRN, MAINTENANCE IV Fluid (once BG is less than 250 mg/dL) AND Potassium is LESS than 5, Starting on 08/28/23 at 2241 Discontinue INITIAL IV Fluid after starting this MAINTENANCE IV Fluid. Do NOT hold infusion for elevated blood glucose without contacting physician. Check with physician if patient is ESRD. 250 ml glucose 50 mg/ml / sodium chloride 4.5 mg/ml injection (1 source) Start: 08-28-2023 End: 08-29-2023 150 mL/hr, Intravenous, Continuous PRN, MAINTENANCE IV Fluid (once BG is less than 250 mg/dL) AND Potassium is GREATER than 5, Starting on 08/28/23 at 2241 Discontinue INITIAL IV Fluid after starting this MAINTENANCE IV Fluid. Do NOT hold infusion for elevated blood glucose without contacting physician. Check with physician if patient is ESRD. 100 ml insulin, regular, human 1 unt/ml injection (2 sources) Insulin Start: 08-28-2023 End: 08-29-2023 take 0.1-30 [IU] intravenously every hour, then take 0.1-30 mL intravenously every hour 0.1-30 Units/hr (0.1-30 mL/hr), Intravenous, Titrated, Starting on 08/28/23 at 2245 Titrate insulin IV per MAR calculator to coincide with the scheduled point of care glucose results. For Downtime Calculator, use: Insulin Infusion DKA" Start: 08-28-2023 End: 08-28-2023 insulin regular in 0.9 % NaC l (MYXREDLIN) 100 Units/100 mL infusion 2 ml ondansetron 2 mg/ml injection (1 source) Serotonin-3 Receptor Antagonist Start: 08-28-2023 End: 08-28-2023 ondansetron (ZOFRAN) injection 4 mg 100 ml potassium chloride 0.2 meq/ml injection (1 source) Start: 08-28-2023 End: 08-29-2023 20 mEq, Intravenous, at 100 mL/hr, Every 1 hour if indicated in MAR calculator, First dose on 08/28/23 at 2300 DKA Potassium Corrective Scale for Potassium LESS THAN 4 Check with physician if patient is ESRD. VESICANT Sodium Chloride (5 sources) Start: 08-28-2023 End: 08-29-2023 sodium chloride (PF) (NS) flush 5 mL Start: 08-28-2023 End: 08-28-2023 sodium chloride 0.9% (NS) brett farnaz 1,000 mL Start: 08-28-2023 End: 08-29-2023 sodium chloride (PF) (NS) fl ush 5 mL Start: 01-22-2021 End: 01-23-2021 sodium chloride (PF) (NS) fl ush 5 mL Problems Active Problems Problem Classification Problem Date Documented Da te Episodic/Chronic Diabetes mellitus with complications (20 sources) Type 1 diabetes mellitus; Translations: [Type 1 diabetes mellitus with ketoacidosis without coma] Onset: 04-24-2021 04-24-2021 Chronic Diabetes mellitus without complication (20 sources) Type 1 diabetes mellitus without complication; Translations: [Type 1 diabetes mellitus without complications] Onset: 02-05-2021 Chronic Diabetes mellitus without complication (2 sources) Hyperglycemia, unspecified; Translations: [Hyperglycemia, unspecified] Onset: 07-03-2025 Episodic Diseases of white blood cells (5 sources) Leukocytosis; Translations: [Elevated white blood cell count, unspecified] Onset: 11-06-2024 11-04-2024 Chronic Immunizations and screening for infectious disease (2 sources) Patient encounter status; Translations: [Encounter for screening for other viral diseases] Episodic Residual codes; unclassified (1 source) Edema of the upper extremity ; Translations: [Localized edema] Episodic Residual codes; unclassified (4 sources) Tobacco user; Translations: [Tobacco use] 11-04-2024 Episodic Viral infection (1 source) Disease caused by 2019-nCoV; Translations: [COVID-19] 08-28-2023 Episodic Viral infection (2 sources) COVID-19; Translations: [COVID-19] Onset: 08-28-2023 Past or Other Problems Problem Classification Problem Date Documented Da te Episodic/Chronic Abdominal pain (7 sources) Abdominal pain; Translations: [Unspecified abdominal pain] Onset: 11-06-2024 11-04-2024 Episodic Acute and unspecified renal failure (7 sources) Acute renal failure syndrome; Translations: [Acute kidney failure, unspecified] Onset: 11-06-2024 07-26-2024 Episodic Fluid and electrolyte disorders (17 sources) Dehydration; Translations: [Dehydration] Onset: 11-06-2024 07-26-2024 Episodic Genitourinary symptoms and ill-defined conditions (4 sources) Proteinuria, unspecified; Translations: [Proteinuria, unspecified] Onset: 04-30-2024 Episodic Mood disorders (6 sources) Mood disorders Onset: 03-22-2022 03-22-2022 Nausea and vomiting (20 sources) Nausea and vomiting; Translations: [Nausea with vomiting, unspecified] Onset: 04-24-2021 04-24-2021 Episodic Other connective tissue disease (2 sources) Pain in left arm; Translations: [Pain in left arm] Onset: 08-04-2023 Episodic Other gastrointestinal disorders (1 source) Diarrhea, unspecified; Translations: [Diarrhea, unspecified] Onset: 11-06-2024 Episodic Other injuries and conditions due to external causes (12 sources) Systemic inflammatory response syndrome; Translations: [Systemic inflammatory response syndrome (SIRS) of non-infectious origin without acute organ dysfunction] Onset: 03-22-2022 03-22-2022 Episodic Phlebitis; thrombophlebitis and thromboembolism (20 sources) Acute deep venous thrombosis of right upper extremity; Translations: [Acute embolism and thrombosis of deep veins of right upper extremity] Onset: 02-05-2021 Episodic Residual codes; unclassified (1 source) Tobacco use; Translations: [Tobacco use] Onset: 11-06-2024 Episodic Results Test Name Value Interpretation Reference Range Facility ED Prov Noteon 07-03-2025 ED Prov Note ED PROVIDER NOTE [facility] NAME: Everardo Escobar AGE: 30 y.o. : 1995 VISIT DATE: 07/03/2025 CSN: [id number] PCP: No, Physician Chief Complaint Patient presents with Hyperglycemia Chief complaint hyperglycemia History of present illness this is a 30-year-old male who has a past medical history of diabetes has been out of his insulin for approximately a month or so due to insurance purposes feeling very tired and fatigued and lethargic thinks his blood sugars up he arrives here blood sugars registering high he denies any fever chills cough congestion chest pressure shortness of breath abdominal pain diarrhea hematemesis hematochezia or melena or any hot or swollen joints or any areas where he has redness of the skin Past Medical History: Diagnosis Date Deep vein thrombosis (HCC) 01/23/2021 right subclavian vein Diabetes mellitus (HCC) 2019 Pyloric stenosis Past Surgical History: Procedure Laterality Date CYST REMOVAL Family History Problem Relation Age of Onset Hypertension Mother Hyperthyroidism Father No Known Problems Sister No Known Problems Brother Social History [1] Previous Medications Medication Sig acetone, urine, test (Ketone Urine Test) Strp 1 (one) strip by Miscellaneous route as needed . blood-glucose sensor (Dexcom G7 Sensor) Fauzia Use as directed to check blood glucose 4 times daily. DX . Change sensor every 10 days. . insulin aspart U-100 (NovoLOG Flexpen U-100 Insulin) 100 unit/mL (3 mL) InPn Use as directed Three times a day plus sliding scale, approx 60 units total per day. Use insulin: CHO ratio of 1:10 for meals and snacks . insulin glargine (Lantus Solostar U-100 Insulin) 100 unit/mL (3 mL) InPn Inject 25 (twenty five) Units under the skin nightly . insulin lispro (HumaLOG KwikPen Insulin) 100 unit/mL InPn Use as directed three times a day plus sliding scale, approx 60 units per day. Use insulin: CHO ratio of 1:10 for meals and snacks . Allergies[2] Review of Systems All other systems reviewed and are negative. Patient Vitals for the past 24 hrs: BP Temp Pulse Resp SpO2 Height Weight 07/03/25 1045 124/66 -- 78 -- 97 % -- -- 07/03/25 0800 (!) 152/96 97.5 degrees F (36.4 degrees C) 96 18 97 % 6' 90.7 kg (200 lb) Physical Exam Vitals and nursing note reviewed. Exam conducted with a powdered sugar supervisor present. Constitutional: Appearance: Normal appearance. He is normal weight. He is ill-appearing. HENT: Head: Normocephalic and atraumatic. Right Ear: Tympanic membrane normal. Left Ear: Tympanic membrane normal. Mouth/Throat: Mouth: Mucous membranes are moist. Eyes: Extraocular Movements: Extraocular movements intact. Pupils: Pupils are equal, round, and reactive to light. Cardiovascular: Rate and Rhythm: Normal rate and regular rhythm. Musculoskeletal: General: Normal range of motion. Cervical back: Normal range of motion and neck supple. Pulmonary: Effort: Pulmonary effort is normal. Breath sounds: Normal breath sounds. Abdominal: General: Abdomen is flat. Bowel sounds are normal. Skin: General: Skin is warm and dry. Capillary Refill: Capillary refill takes 2 to 3 seconds. Neurological: General: No focal deficit present. Mental Status: He is alert. Laboratory & Radiographic Imaging (if done): Results for orders placed or performed during the hospital encounter of 07/03/25 POC CBC and Differential Result Value Ref Range WBC 8.45 4.50 - 11.00 K/mcL RBC 5.66 4.50 - 5.90 M/mcL Hemoglobin 17.2 13.5 - 17.5 g/dL Hematocrit 50.4 41.0 - 53.0 % MCV 89.0 80.0 - 100.0 fL MCH 30.4 26.0 - 34.0 pg MCHC 34.1 31.0 - 37.0 g/dL RDW - CV 12.9 11.6 - 14.8 % Platelets 327 150 - 400 K/mcL MPV 9.0 (L) 9.4 - 12.4 fL Neutrophils 66.4 % Lymphocytes 21.1 % Monocytes 5.8 % Eosinophils 5.3 % Basophils 1.2 % IG Percent 0.20 % Neutrophils Abs 5.61 1.70 - 7.00 K/mcL Lymphocytes Abs 1.78 0.90 - 4.00 K/mcL Monocytes Abs 0.49 0.30 - 0.90 K/mcL Eosinophils Abs 0.45 0.00 - 0.50 K/mcL Basophils Abs 0.10 0.00 - 0.30 K/mcL IG Absolute 0.02 0.00 - 0.30 K/mcL POC Glucose Result Value Ref Range Glucose 494 (CH) 65 - 99 mg/dL POC Venous Blood Gases with Full Panel Result Value Ref Range pH, Venous 7.14 (CL) 7.32 - 7.42 pCO2, Chet 35.9 (L) 41.0 - 51.0 mm Hg pO2, Chet 27 25 - 40 mm Hg Base Excess, Chet -16.0 (L) -2.0 - 2.0 mmol/L HCO3, Chet 12.2 (L) 24.0 - 28.0 mmol/L O2 Sat, Chet 35.0 (L) 40.0 - 70.0 % Hemoglobin, Calculated 19.2 (H) 13.5 - 17.5 g/dL Hematocrit 56 (H) 41 - 53 % Glucose 656 (CH) 65 - 99 mg/dL BUN 16 8 - 25 mg/dL Creatinine 1.13 0.50 - 1.30 mg/dL GFR 90 >=60 mL/min/1.73 m2 Sodium 128 (L) 135 - 145 mmol/L Potassium 5.1 3.5 - 5.1 mmol/L Chloride 107 98 - 108 mmol/L Lactate 1.5 0.6 - 2.0 mmol/L Ionized Calcium 4.7 4.5 - 5.3 mg/dL POC Glucose Result Value Ref Range Glucose 485 (CH) 65 - 99 mg/dL POC Glucose Result Value (more content not included)... Normal [facility] POC CBC AND DIFFERENTIALon 1 09-02-2024 BASOPHILS ABSOLUTE COUNT 0.10 K/mcL Normal 0.00-0.30 [facility] Basophils/100 WBC (Bld) 1.2 % Normal [facility] Eosinophils (Bld) [#/Vol] 0.45 10*3/uL Normal 0.00-0.[address] [facility] Eosinophils/100 WBC (Bld) 5.3 % Normal [facility] Erythrocyte distribution width (RBC) [Ratio] 12.9 % Normal 11.6-14.8 [facility] Hematocrit (Bld) [Volume fraction] 50.4 % Normal 41.0-53.0 [facility] Hemoglobin (Bld) [Mass/Vol] 17.2 g/dL Normal 13.5-17. 5 [facility] IG ABSOLUTE 0.02 K/mcL Normal 0.00-0.30 [facility] IG PERCENT 0.20 % Normal [facility] Comment on above: Result Comment: The IG parameter is the percentage of metamyelocytes, myelocytes and promyelocytes. An immature granulocyte count (IG) of 1% or more suggests the possibility of infection, an IG count of 3% is very likely related to an infection. Lymphocytes (Bld) [#/Vol] 1.78 10*3/uL Normal 0.90-4.[address] [facility] Lymphocytes/100 WBC (Bld) 21.1 % Normal [facility] MCH (RBC) [Entitic mass] 30.4 pg Normal 26.0-34.0 [facility] MCV (RBC) [Entitic vol] 89.0 fL Normal 80.0-100.0 [facility] MEAN CORPUSCULAR HEMOGLOBIN CONC 34.1 g/dL Normal 31.0-37.0 [facility] Monocytes (Bld) [#/Vol] 0.49 10*3/uL Normal 0.30-0.90 [facility] Monocytes/100 WBC (Bld) 5.8 % Normal [facility] NEUTROPHILS ABSOLUTE COUNT 5.61 K/mcL Normal 1.70-7.00 [facility] Neutrophils/100 WBC (Bld) 66.4 % Normal [facility] Platelet mean volume (Bld) [Entitic vol] 9.0 fL Low 9.4-12.4 [facility] Platelets (Bld) [#/Vol] 327 10*3/uL Normal 150-400 [facility] RBC (Bld) [#/Vol] 5.66 10*6/uL Normal 4.50-5.90 [facility] WBC (Bld) [#/Vol] 8.45 10*3/uL Normal 4.50-11.00 [facility] POC GLUCOSE Deandre Ryder 025 Glucose [Mass/Vol] 158 mg/dL High 65-99 [facility] Glucose [Mass/Vol] 185 mg/dL High 65-99 [facility] Glucose [Mass/Vol] 210 mg/dL High 65-99 [facility] Glucose [Mass/Vol] 315 mg/dL High 65-99 [facility] Glucose [Mass/Vol] 485 mg/dL Off scale high 65-99 [facility] Comment on above: Order Comment: Criti phylicia result acted upon time of test. Test performed at bedside. Glucose [Mass/Vol] 494 mg/dL Off scale high 65-99 [facility] Comment on above: Order Comment: Criti phylicia result acted upon time of test. Test performed at bedside. POC VBG (EPOC) WITH FULL DENNY GONZALEZ Ryder 07-03-2025 BASE EXCESS, VENOUS -11.4 mmol/L Low -2.0-2.0 [facility] Comment on above: Order Comment: [facility] has implemented the eGFR calculation approach that does not have a coefficient for race that conforms to the NKF-ASN Task Force Recommendations. Specimens collected in a lithium heparin tube may show erroneous pO2, pCO2 and related calculations due to aerobic handling. If the most accurate venous blood gas results are needed, use a heparinized blood gas syringe. CALCIUM IONIZED 4.6 mg/dL Normal 4.5-5.3 [facility] Comment on above: Order Comment: [facility] has implemented the eGFR calculation approach that does not have a coefficient for race that conforms to the NKF-ASN Task Force Recommendations. Specimens collected in a lithium heparin tube may show erroneous pO2, pCO2 and related calculations due to aerobic handling. If the most accurate venous blood gas results are needed, use a heparinized blood gas syringe. Chloride [Moles/Vol] 109 mmol/L High 98-108 [facility] Comment on above: Order Comment: [facility] has implemented the eGFR calculation approach that does not have a coefficient for race that conforms to the NKF-ASN Task Force Recommendations. Specimens collected in a lithium heparin tube may show erroneous pO2, pCO2 and related calculations due to aerobic handling. If the most accurate venous blood gas results are needed, use a heparinized blood gas syringe. Creatinine [Mass/Vol] 0.85 mg/dL Normal 0.50-1.30 [facility] Comment on above: Order Comment: [facility] has implemented the eGFR calculation approach that does not have a coefficient for race that conforms to the NKF-ASN Task Force Recommendations. Specimens collected in a lithium heparin tube may show erroneous pO2, pCO2 and related calculations due to aerobic handling. If the most accurate venous blood gas results are needed, use a heparinized blood gas syringe. Glucose [Mass/Vol] 211 mg/dL High 65-99 [facility] Comment on above: Order Comment: [facility] has implemented the eGFR calculation approach that does not have a coefficient for race that conforms to the NKF-ASN Task Force Recommendations. Specimens collected in a lithium heparin tube may show erroneous pO2, pCO2 and related calculations due to aerobic handling. If the most accurate venous blood gas results are needed, use a heparinized blood gas syringe. HCO3 (Bld) [Moles/Vol] 13.6 mmol/L Low 24.0-28.0 [facility] Comment on above: Order Comment: [facility] has implemented the eGFR calculation approach that does not have a coefficient for race that conforms to the NKF-ASN Task Force Recommendations. Specimens collected in a lithium heparin tube may show erroneous pO2, pCO2 and related calculations due to aerobic handling. If the most accurate venous blood gas results are needed, use a heparinized blood gas syringe. Hematocrit (Bld) [Volume fraction] 45 % Normal 41-53 [facility] Comment on above: Order Comment: [facility] has implemented the eGFR calculation approach that does not have a coefficient for race that conforms to the NKF-ASN Task Force Recommendations. Specimens collected in a lithium heparin tube may show erroneous pO2, pCO2 and related calculations due to aerobic handling. If the most accurate venous blood gas results are needed, use a heparinized blood gas syringe. HEMOGLOBIN, CALCULATED 15.4 g/dL Normal 13.5-17.5 [facility] Comment on above: Order Comment: [facility] has implemented the eGFR calculation approach that does not have a coefficient for race that conforms to the NKF-ASN Task Force Recommendations. Specimens collected in a lithium heparin tube may show erroneous pO2, pCO2 and related calculations due to aerobic handling. If the most accurate venous blood gas results are needed, use a heparinized blood gas syringe. Oxygen saturation in Blood 91.4 % High 40.0-70.0 [facility] Comment on above: Order Comment: [facility] has implemented the eGFR calculation approach that does not have a coefficient for race that conforms to the NKF-ASN Task Force Recommendations. Specimens collected in a lithium heparin tube may show erroneous pO2, pCO2 and related calculations due to aerobic handling. If the most accurate venous blood gas results are needed, use a heparinized blood gas syringe. PCO2 VENOUS 28.5 mm Hg Low 41.0-51.0 [facility] Comment on above: Order Comment: [facility] Laboratory [facility] has implemented the eGFR calculation approach that does not have a coefficient for race that conforms to the NKF-ASN Task Force Recommendations. Specimens collected in a lithium heparin tube may show erroneous pO2, pCO2 and related calculations due to aerobic handling. If the most accurate venous blood gas results are needed, use a heparinized blood gas syringe. PH VENOUS 7.29 Low 7.32-7.42 [facility] Comment on above: Order Comment: [facility] has implemented the eGFR calculation approach that does not have a coefficient for race that conforms to the NKF-ASN Task Force Recommendations. Specimens collected in a lithium heparin tube may show erroneous pO2, pCO2 and related calculations due to aerobic handling. If the most accurate venous blood gas results are needed, use a heparinized blood gas syringe. PO2 VENOUS 68 mm Hg High 25-40 [facility] Comment on above: Order Comment: [facility] has implemented the eGFR calculation approach that does not have a coefficient for race that conforms to the NKF-ASN Task Force Recommendations. Specimens collected in a lithium heparin tube may show erroneous pO2, pCO2 and related calculations due to aerobic handling. If the most accurate venous blood gas results are needed, use a heparinized blood gas syringe. POC GFR 120 mL/min/1.73 m2 Normal >=60 [facility] Comment on above: Order Comment: [facility] has implemented the eGFR calculation approach that does not have a coefficient for race that conforms to the NKF-ASN Task Force Recommendations. Specimens collected in a lithium heparin tube may show erroneous pO2, pCO2 and related calculations due to aerobic handling. If the most accurate venous blood gas results are needed, use a heparinized blood gas syringe. Result Comment: Gabrielle mated GFR was calculated using the 2020 CKD-EPI creatinine equation. POC LACTATE 0.9 mmol/L Normal 0.6-2.0 [facility] Comment on above: Order Comment: [facility] has implemented the eGFR calculation approach that does not have a coefficient for race that conforms to the NKF-ASN Task Force Recommendations. Specimens collected in a lithium heparin tube may show erroneous pO2, pCO2 and related calculations due to aerobic handling. If the most accurate venous blood gas results are needed, use a heparinized blood gas syringe. Potassium [Moles/Vol] 3.9 mmol/L Normal 3.5-5.1 [facility] Comment on above: Order Comment: [facility] has implemented the eGFR calculation approach that does not have a coefficient for race that conforms to the NKF-ASN Task Force Recommendations. Specimens collected in a lithium heparin tube may show erroneous pO2, pCO2 and related calculations due to aerobic handling. If the most accurate venous blood gas results are needed, use a heparinized blood gas syringe. Sodium [Moles/Vol] 134 mmol/L Low 135-145 [facility] Comment on above: Order Comment: [facility] has implemented the eGFR calculation approach that does not have a coefficient for race that conforms to the NKF-ASN Task Force Recommendations. Specimens collected in a lithium heparin tube may show erroneous pO2, pCO2 and related calculations due to aerobic handling. If the most accurate venous blood gas results are needed, use a heparinized blood gas syringe. Urea nitrogen [Mass/Vol] 16 mg/dL Normal 8-25 [facility] Comment on above: Order Comment: [facility] has implemented the eGFR calculation approach that does not have a coefficient for race that conforms to the NKF-ASN Task Force Recommendations. Specimens collected in a lithium heparin tube may show erroneous pO2, pCO2 and related calculations due to aerobic handling. If the most accurate venous blood gas results are needed, use a heparinized blood gas syringe. BASE EXCESS, VENOUS -16.3 mmol/L Low -2.0-2.0 [facility] Comment on above: Order Comment: [facility] has implemented the eGFR calculation approach that does not have a coefficient for race that conforms to the NKF-ASN Task Force Recommendations. Specimens collected in a lithium heparin tube may show erroneous pO2, pCO2 and related calculations due to aerobic handling. If the most accurate venous blood gas results are needed, use a heparinized blood gas syringe. CALCIUM IONIZED 4.7 mg/dL Normal 4.5-5.3 [facility] Comment on above: Order Comment: [facility] Laboratory [facility] has implemented the eGFR calculation approach that does not have a coefficient for race that conforms to the NKF-ASN Task Force Recommendations. Specimens collected in a lithium heparin tube may show erroneous pO2, pCO2 and related calculations due to aerobic handling. If the most accurate venous blood gas results are needed, use a heparinized blood gas syringe. Chloride [Moles/Vol] 111 mmol/L High 98-108 [facility] Comment on above: Order Comment: [facility] has implemented the eGFR calculation approach that does not have a coefficient for race that conforms to the NKF-ASN Task Force Recommendations. Specimens collected in a lithium heparin tube may show erroneous pO2, pCO2 and related calculations due to aerobic handling. If the most accurate venous blood gas results are needed, use a heparinized blood gas syringe. Creatinine [Mass/Vol] 0.92 mg/dL Normal 0.50-1.30 [facility] Comment on above: Order Comment: [facility] has implemented the eGFR calculation approach that does not have a coefficient for race that conforms to the NKF-ASN Task Force Recommendations. Specimens collected in a lithium heparin tube may show erroneous pO2, pCO2 and related calculations due to aerobic handling. If the most accurate venous blood gas results are needed, use a heparinized blood gas syringe. Glucose [Mass/Vol] 346 mg/dL [facility] 65-99 [facility] Comment on above: Order Comment: [facility] has implemented the eGFR calculation approach that does not have a coefficient for race that conforms to the NKF-ASN Task Force Recommendations. Specimens collected in a lithium heparin tube may show erroneous pO2, pCO2 and related calculations due to aerobic handling. If the most accurate venous blood gas results are needed, use a heparinized blood gas syringe. HCO3 (Bld) [Moles/Vol] 9.7 mmol/L Low 24.0-28.0 [facility] Comment on above: Order Comment: [facility] Laboratory [facility] has implemented the eGFR calculation approach that does not have a coefficient for race that conforms to the NKF-ASN Task Force Recommendations. Specimens collected in a lithium heparin tube may show erroneous pO2, pCO2 and related calculations due to aerobic handling. If the most accurate venous blood gas results are needed, use a heparinized blood gas syringe. Hematocrit (Bld) [Volume fraction] 50 % Normal 41-53 [facility] Comment on above: Order Comment: [facility] has implemented the eGFR calculation approach that does not have a coefficient for race that conforms to the NKF-ASN Task Force Recommendations. Specimens collected in a lithium heparin tube may show erroneous pO2, pCO2 and related calculations due to aerobic handling. If the most accurate venous blood gas results are needed, use a heparinized blood gas syringe. HEMOGLOBIN, CALCULATED 17.1 g/dL Normal 13.5-17.5 [facility] Comment on above: Order Comment: [facility] has implemented the eGFR calculation approach that does not have a coefficient for race that conforms to the NKF-ASN Task Force Recommendations. Specimens collected in a lithium heparin tube may show erroneous pO2, pCO2 and related calculations due to aerobic handling. If the most accurate venous blood gas results are needed, use a heparinized blood gas syringe. Oxygen saturation in Blood 89.3 % High 40.0-70.0 [facility] Comment on above: Order Comment: [facility] has implemented the eGFR calculation approach that does not have a coefficient for race that conforms to the NKF-ASN Task Force Recommendations. Specimens collected in a lithium heparin tube may show erroneous pO2, pCO2 and related calculations due to aerobic handling. If the most accurate venous blood gas results are needed, use a heparinized blood gas syringe. PCO2 VENOUS 24.6 mm Hg Low 41.0-51.0 [facility] Comment on above: Order Comment: [facility] has implemented the eGFR calculation approach that does not have a coefficient for race that conforms to the NKF-ASN Task Force Recommendations. Specimens collected in a lithium heparin tube may show erroneous pO2, pCO2 and related calculations due to aerobic handling. If the most accurate venous blood gas results are needed, use a heparinized blood gas syringe. PH VENOUS 7.20 Low 7.32-7.42 [facility] Comment on above: Order Comment: [facility] has implemented the eGFR calculation approach that does not have a coefficient for race that conforms to the NKF-ASN Task Force Recommendations. Specimens collected in a lithium heparin tube may show erroneous pO2, pCO2 and related calculations due to aerobic handling. If the most accurate venous blood gas results are needed, use a heparinized blood gas syringe. PO2 VENOUS 68 mm Hg High 25-40 [facility] Comment on above: Order Comment: [facility] has implemented the eGFR calculation approach that does not have a coefficient for race that conforms to the NKF-ASN Task Force Recommendations. Specimens collected in a lithium heparin tube may show erroneous pO2, pCO2 and related calculations due to aerobic handling. If the most accurate venous blood gas results are needed, use a heparinized blood gas syringe. POC GFR 115 mL/min/1.73 m2 Normal >=60 [facility] Comment on above: Order Comment: [facility] has implemented the eGFR calculation approach that does not have a coefficient for race that conforms to the NKF-ASN Task Force Recommendations. Specimens collected in a lithium heparin tube may show erroneous pO2, pCO2 and related calculations due to aerobic handling. If the most accurate venous blood gas results are needed, use a heparinized blood gas syringe. Result Comment: Gabrielle mated GFR was calculated using the 2020 CKD-EPI creatinine equation. POC LACTATE 1.1 mmol/L Normal 0.6-2.0 [facility] Comment on above: Order Comment: [facility] Laboratory [facility] has implemented the eGFR calculation approach that does not have a coefficient for race that conforms to the NKF-ASN Task Force Recommendations. Specimens collected in a lithium heparin tube may show erroneous pO2, pCO2 and related calculations due to aerobic handling. If the most accurate venous blood gas results are needed, use a heparinized blood gas syringe. Potassium [Moles/Vol] 4.4 mmol/L Normal 3.5-5.1 [facility] Comment on above: Order Comment: [facility] has implemented the eGFR calculation approach that does not have a coefficient for race that conforms to the NKF-ASN Task Force Recommendations. Specimens collected in a lithium heparin tube may show erroneous pO2, pCO2 and related calculations due to aerobic handling. If the most accurate venous blood gas results are needed, use a heparinized blood gas syringe. Sodium [Moles/Vol] 130 mmol/L Low 135-145 [facility] Comment on above: Order Comment: [facility] has implemented the eGFR calculation approach that does not have a coefficient for race that conforms to the NKF-ASN Task Force Recommendations. Specimens collected in a lithium heparin tube may show erroneous pO2, pCO2 and related calculations due to aerobic handling. If the most accurate venous blood gas results are needed, use a heparinized blood gas syringe. Urea nitrogen [Mass/Vol] 16 mg/dL Normal 8-25 [facility] Comment on above: Order Comment: [facility] has implemented the eGFR calculation approach that does not have a coefficient for race that conforms to the NKF-ASN Task Force Recommendations. Specimens collected in a lithium heparin tube may show erroneous pO2, pCO2 and related calculations due to aerobic handling. If the most accurate venous blood gas results are needed, use a heparinized blood gas syringe. BASE EXCESS, VENOUS -16.0 mmol/L Low -2.0-2.0 [facility] Comment on above: Order Comment: [facility] Laboratory [facility] has implemented the eGFR calculation approach that does not have a coefficient for race that conforms to the NKF-ASN Task Force Recommendations. Specimens collected in a lithium heparin tube may show erroneous pO2, pCO2 and related calculations due to aerobic handling. If the most accurate venous blood gas results are needed, use a heparinized blood gas syringe. Critical result acted upon time of test. Test performed at bedside. CALCIUM IONIZED 4.7 mg/dL Normal 4.5-5.3 [facility] Comment on above: Order Comment: [facility] Laboratory [facility] has implemented the eGFR calculation approach that does not have a coefficient for race that conforms to the NKF-ASN Task Force Recommendations. Specimens collected in a lithium heparin tube may show erroneous pO2, pCO2 and related calculations due to aerobic handling. If the most accurate venous blood gas results are needed, use a heparinized blood gas syringe. Critical result acted upon time of test. Test performed at bedside. Chloride [Moles/Vol] 107 mmol/L Normal 98-108 [facility] Comment on above: Order Comment: [facility] has implemented the eGFR calculation approach that does not have a coefficient for race that conforms to the NKF-ASN Task Force Recommendations. Specimens collected in a lithium heparin tube may show erroneous pO2, pCO2 and related calculations due to aerobic handling. If the most accurate venous blood gas results are needed, use a heparinized blood gas syringe. Critical result acted upon time of test. Test performed at bedside. Creatinine [Mass/Vol] 1.13 mg/dL Normal 0.50-1.30 [facility] Comment on above: Order Comment: [facility] Laboratory [facility] has implemented the eGFR calculation approach that does not have a coefficient for race that conforms to the NKF-ASN Task Force Recommendations. Specimens collected in a lithium heparin tube may show erroneous pO2, pCO2 and related calculations due to aerobic handling. If the most accurate venous blood gas results are needed, use a heparinized blood gas syringe. Critical result acted upon time of test. Test performed at bedside. Glucose [Mass/Vol] 656 mg/dL Off scale high 65-99 [facility] Comment on above: Order Comment: [facility] Laboratory [facility] has implemented the eGFR calculation approach that does not have a coefficient for race that conforms to the NKF-ASN Task Force Recommendations. Specimens collected in a lithium heparin tube may show erroneous pO2, pCO2 and related calculations due to aerobic handling. If the most accurate venous blood gas results are needed, use a heparinized blood gas syringe. Critical result acted upon time of test. Test performed at bedside. HCO3 (Bld) [Moles/Vol] 12.2 mmol/L Low 24.0-28.0 G [facility] Comment on above: Order Comment: [facility] Laboratory [facility] has implemented the eGFR calculation approach that does not have a coefficient for race that conforms to the NKF-ASN Task Force Recommendations. Specimens collected in a lithium heparin tube may show erroneous pO2, pCO2 and related calculations due to aerobic handling. If the most accurate venous blood gas results are needed, use a heparinized blood gas syringe. Critical result acted upon time of test. Test performed at bedside. Hematocrit (Bld) [Volume fraction] 56 % High 41-[address] [facility] [facility] Comment on above: Order Comment: [facility] has implemented the eGFR calculation approach that does not have a coefficient for race that conforms to the NKF-ASN Task Force Recommendations. Specimens collected in a lithium heparin tube may show erroneous pO2, pCO2 and related calculations due to aerobic handling. If the most accurate venous blood gas results are needed, use a heparinized blood gas syringe. Critical result acted upon time of test. Test performed at bedside. HEMOGLOBIN, CALCULATED 19.2 g/dL High 13.5-17.5 Gr [facility] Comment on above: Order Comment: [facility] Services has implemented the eGFR calculation approach that does not have a coefficient for race that conforms to the NKF-ASN Task Force Recommendations. Specimens collected in a lithium heparin tube may show erroneous pO2, pCO2 and related calculations due to aerobic handling. If the most accurate venous blood gas results are needed, use a heparinized blood gas syringe. Critical result acted upon time of test. Test performed at bedside. Oxygen saturation in Blood 35.0 % Low 40.0-70.0 [facility] Comment on above: Order Comment: [facility] has implemented the eGFR calculation approach that does not have a coefficient for race that conforms to the NKF-ASN Task Force Recommendations. Specimens collected in a lithium heparin tube may show erroneous pO2, pCO2 and related calculations due to aerobic handling. If the most accurate venous blood gas results are needed, use a heparinized blood gas syringe. Critical result acted upon time of test. Test performed at bedside. PCO2 VENOUS 35.9 mm Hg Low 41.0-51.0 [facility] Comment on above: Order Comment: [facility] has implemented the eGFR calculation approach that does not have a coefficient for race that conforms to the NKF-ASN Task Force Recommendations. Specimens collected in a lithium heparin tube may show erroneous pO2, pCO2 and related calculations due to aerobic handling. If the most accurate venous blood gas results are needed, use a heparinized blood gas syringe. Critical result acted upon time of test. Test performed at bedside. PH VENOUS 7.14 Off scale low 7.32-7.42 [facility] Comment on above: Order Comment: [facility] has implemented the eGFR calculation approach that does not have a coefficient for race that conforms to the NKF-ASN Task Force Recommendations. Specimens collected in a lithium heparin tube may show erroneous pO2, pCO2 and related calculations due to aerobic handling. If the most accurate venous blood gas results are needed, use a heparinized blood gas syringe. Critical result acted upon time of test. Test performed at bedside. PO2 VENOUS 27 mm Hg Normal 25-40 [facility] Comment on above: Order Comment: [facility] has implemented the eGFR calculation approach that does not have a coefficient for race that conforms to the NKF-ASN Task Force Recommendations. Specimens collected in a lithium heparin tube may show erroneous pO2, pCO2 and related calculations due to aerobic handling. If the most accurate venous blood gas results are needed, use a heparinized blood gas syringe. Critical result acted upon time of test. Test performed at bedside. POC GFR 90 mL/min/1.73 m2 Normal >=60 [facility] Comment on above: Order Comment: [facility] has implemented the eGFR calculation approach that does not have a coefficient for race that conforms to the NKF-ASN Task Force Recommendations. Specimens collected in a lithium heparin tube may show erroneous pO2, pCO2 and related calculations due to aerobic handling. If the most accurate venous blood gas results are needed, use a heparinized blood gas syringe. Critical result acted upon time of test. Test performed at bedside. Result Comment: Gabrielle mated GFR was calculated using the 2020 CKD-EPI creatinine equation. POC LACTATE 1.5 mmol/L Normal 0.6-2.0 [facility] Comment on above: Order Comment: [facility] has implemented the eGFR calculation approach that does not have a coefficient for race that conforms to the NKF-ASN Task Force Recommendations. Specimens collected in a lithium heparin tube may show erroneous pO2, pCO2 and related calculations due to aerobic handling. If the most accurate venous blood gas results are needed, use a heparinized blood gas syringe. Critical result acted upon time of test. Test performed at bedside. Potassium [Moles/Vol] 5.1 mmol/L Normal 3.5-5.1 [facility] Comment on above: Order Comment: [facility] has implemented the eGFR calculation approach that does not have a coefficient for race that conforms to the NKF-ASN Task Force Recommendations. Specimens collected in a lithium heparin tube may show erroneous pO2, pCO2 and related calculations due to aerobic handling. If the most accurate venous blood gas results are needed, use a heparinized blood gas syringe. Critical result acted upon time of test. Test performed at bedside. Sodium [Moles/Vol] 128 mmol/L Low 135-145 [facility] Comment on above: Order Comment: [facility] has implemented the eGFR calculation approach that does not have a coefficient for race that conforms to the NKF-ASN Task Force Recommendations. Specimens collected in a lithium heparin tube may show erroneous pO2, pCO2 and related calculations due to aerobic handling. If the most accurate venous blood gas results are needed, use a heparinized blood gas syringe. Critical result acted upon time of test. Test performed at bedside. Urea nitrogen [Mass/Vol] 16 mg/dL Normal 8-25 [facility] Comment on above: Order Comment: [facility] has implemented the eGFR calculation approach that does not have a coefficient for race that conforms to the NKF-ASN Task Force Recommendations. Specimens collected in a lithium heparin tube may show erroneous pO2, pCO2 and related calculations due to aerobic handling. If the most accurate venous blood gas results are needed, use a heparinized blood gas syringe. Critical result acted upon time of test. Test performed at bedside. ALBUMIN, RANDOM URINE W/CREA TININEon 12-30-2024 ALBUMIN, URINE 184.7 mg/dL Normal See Note: [facility] Comment on above: Result Comment: Refe rence Range: Reference Range Not established Results verified by repeat analysis on dilution. Performed By: #### 8 99, 866, 7600, 6517, 496, 39554 #### [facility] [address], [address] [place] [address] Training Generalist: Jones Donahue MD ALBUMIN/CREATININE RATIO, RANDOM URINE 967 mg/g creat High <30 [facility] Comment on above: Result Comment: The ADA defines abnormalities in albumin excretion as follows: Albuminuria Category Result (mg/g creatinine) Normal to Mildly increased <30 Moderately increased 30-299 Severely increased > OR = 300 The ADA recommends that at least two of three specimens collected within a 3-6 month period be abnormal before considering a patient to be within a diagnostic category. Performed By: #### 8 99, 866, 7600, 6517, 496, 75501 #### [facility] [place] [address] Training Generalist: Jones Donahue MD Creatinine (U) [Mass/Vol] 191 mg/dL Normal 20-320 [facility] Comment on above: Performed By: #### 8 99, 866, 7600, 6517, 496, 94544 #### [facility] [place] [address] Training Generalist: Jones Donahue MD [facility] 12-30-2024 Albumin [Mass/Vol] 4.5 g/dL Normal 3.6-5.1 [facility] Comment on above: Performed By: #### 8 99, 866, 7600, 6517, 496, 98225 #### [facility] [address], [address] [place] [address] Training Generalist: Jones Donahue MD Albumin/Globulin [Mass ratio] 2.0 {ratio} Normal 1.0-2.5 [facility] Comment on above: Performed By: #### 8 99, 866, 7600, 6517, 496, 69448 #### [facility] of [address], [address] [place] [address] Training Generalist: Jones Donahue MD ALP [Catalytic activity/Vol] 86 U/L Normal 36-130 [facility] Comment on above: Performed By: #### 8 99, 866, 7600, 6517, 496, 03958 #### [facility] of [address], [address] [place] [address] Training Generalist: Jones Donahue MD ALT [Catalytic activity/Vol] 18 U/L Normal 9-46 [facility] Comment on above: Performed By: #### 8 99, 866, 7600, 6517, 496, 64896 #### [facility] of [address], [address] [place] [address] Training Generalist: Jones Donahue MD AST [Catalytic activity/Vol] 18 U/L Normal 10-40 [facility] Comment on above: Performed By: #### 8 99, 866, 7600, 6517, 496, 38358 #### [facility] of [place] [address] Training Generalist: Jones Donahue MD Bilirubin [Mass/Vol] 0.9 mg/dL Normal 0.2-1.2 [facility] Comment on above: Performed By: #### 8 99, 866, 7600, 6517, 496, 53485 #### [facility] of [place] [address] Training Generalist: Jones Donahue MD BUN/CREATININE RATIO SEE NOTE: Normal 6-22 [facility] Comment on above: Result Comment: Not Reported: BUN and Creatinine are within reference range. Performed By: #### 8 99, 866, 7600, 6517, 496, 35144 #### [facility] of [address], [address] [place], [place] [address] Training Generalist: Jones Donahue MD Calcium [Mass/Vol] 9.2 mg/dL Normal 8.6-10.3 [facility] Comment on above: Performed By: #### 8 99, 866, 7600, 6517, 496, 84962 #### [facility] [place] [address] Training Generalist: Jones Donahue MD Chloride [Moles/Vol] 97 mmol/L Low 98-110 [facility] Comment on above: Performed By: #### 8 99, 866, 7600, 6517, 496, 93758 #### [facility] [place] [address] Training Generalist: Jones Donahue MD CO2 [Moles/Vol] 30 mmol/L Normal 20-32 [facility] Comment on above: Performed By: #### 8 99, 86, 7600, 6517, 496, 45144 #### [facility] [place] [address] Training Generalist: Jones Donahue MD Creatinine [Mass/Vol] 0.80 mg/dL Normal 0.60-1.[address] [facility] Comment on above: Performed By: #### 8 99, 866, 7600, 6517, 496, 87610 #### [facility] [place] [address] Training Generalist: Jones Donahue MD GFR/1.73 sq M.predicted among non-blacks MDRD (S/P/Bld) [Vol rate/Area] 123 mL/min/{1.73_m2} Normal > OR = 60 [facility] Comment on above: Performed By: #### 8 99, 866, 7600, 6517, 496, 33799 #### [facility] of [place] [address] Training Generalist: Jones Donahue MD Globulin (S) [Mass/Vol] 2.2 g/dL Normal 1.9-3.7 [facility] Comment on above: Performed By: #### 8 99, 866, 7600, 6517, 496, 95125 #### [facility] [place] [address] Training Generalist: Jones Donahue MD Glucose [Mass/Vol] 283 mg/dL High 65-99 [facility] Comment on above: Result Comment: Fasting reference interval For someone without known diabetes, a glucose value >125 mg/dL indicates that they may have diabetes and this should be confirmed with a follow-up test. Performed By: #### 8 99, 866, 7600, 6517, 496, 48882 #### [facility] [place] [address] Training Generalist: Jones Donahue MD Potassium [Moles/Vol] 3.8 mmol/L Normal 3.5-5.3 [facility] Comment on above: Performed By: #### 8 99, 866, 7600, 6517, 496, 48986 #### [facility] [place] [address] Training Generalist: Jones Donahue MD Protein [Mass/Vol] 6.7 g/dL Normal 6.1-8.1 [facility] Comment on above: Performed By: #### 8 99, 866, 7600, 6517, 496, 40387 #### [facility] [place] [address] Training Generalist: Jones Donahue MD Sodium [Moles/Vol] 136 mmol/L Normal 135-146 [facility] Comment on above: Performed By: #### 8 99, 866, 7600, 6517, 496, 70921 #### [facility] [place] [address] Training Generalist: Jones Donahue MD Urea nitrogen [Mass/Vol] 15 mg/dL Normal 7-25 [facility] Comment on above: Performed By: #### 8 99, 866, 7600, 6517, 496, 27409 #### [facility] [place] [address] Training Generalist: Jones Donahue MD HEMOGLOBIN A1con 12-30-2024 HbA1c (Bld) [Mass fraction] 11.8 % High <5.7 [facility] Comment on above: Result Comment: For someone without known diabetes, a hemoglobin A1c value of 6.5% or greater indicates that they may have diabetes and this should be confirmed with a follow-up test. For someone with known diabetes, a value <7% indicates that their diabetes is well controlled and a value greater than or equal to 7% indicates suboptimal control. A1c targets should be individualized based on duration of diabetes, age, comorbid conditions, and other considerations. Currently, no consensus exists regarding use of hemoglobin A1c for diagnosis of diabetes for children. Performed By: #### 8 99, 866, 7600, 6517, 496, 88516 #### [facility] [place] [address] Training Generalist: Jones Donahue MD LIPID PANEL, STANDARDon 12-21 Cholesterol [Mass/Vol] 178 mg/dL Normal <200 [facility] Comment on above: Performed By: #### 8 99, 866, 7600, 6517, 496, 99008 #### [facility] [place] [address] Training Generalist: Jones Donahue MD Cholesterol in HDL [Mass/Vol] 56 mg/dL Normal > OR = 40 [facility] Comment on above: Performed By: #### 8 99, 866, 7600, 6517, 496, 33394 #### [facility] [place] [address] Training Generalist: Jones Donahue MD Cholesterol in LDL [Mass/Vol] 101 mg/dL High [facility] Comment on above: Result Comment: Refe rence range: <100 Desirable range <100 mg/dL for primary prevention; <70 mg/dL for patients with CHD or diabetic patients with > or = 2 CHD risk factors. LDL-C is now calculated using the Evelio-Dominguez calculation, which is a validated novel method providing better accuracy than the Friedewald equation in the estimation of LDL-C. Evelio CHAVARRIA et al. ROSELINE. 2013;310(19): 4743-2921 (http://education.Health [employer] We Age.Schoolnet/faq/KVA233) Performed By: #### 8 99, 866, 7600, 6517, 496, 68769 #### [facility] [address], [address] [place] [address] Training Generalist: Joens Donahue MD Cholesterol.total/Cholester ol in HDL [Mass ratio] 3.2 {ratio} Normal <5.0 [facility] Comment on above: Performed By: #### 8 99, 866, 7600, 6517, 496, 22480 #### [facility] [place] [address] Training Generalist: Jones Donahue MD NON HDL CHOLESTEROL 122 mg/dL (calc) Normal <130 [facility] Comment on above: Result Comment: For patients with diabetes plus 1 major ASCVD risk factor, treating to a non-HDL-C goal of <100 mg/dL (LDL-C of <70 mg/dL) is considered a therapeutic option. Performed By: #### 8 99, 866, 7600, 6517, 496, 18279 #### [facility] [place] [address] Training Generalist: Jones Donahue MD Triglyceride [Mass/Vol] 113 mg/dL Normal <150 [facility] Comment on above: Performed By: #### 8 99, 866, 7600, 6517, 496, 53480 #### [facility] [place] [address] Training Generalist: Jones Donahue MD T4, FREEon 12-30-2024 Free T4 [Mass/Vol] 1.6 ng/dL Normal 0.8-1.8 [facility] Comment on above: Performed By: #### 8 99, 866, 7600, 6517, 496, 14532 #### [facility] [place] [address] Training Generalist: Jones Donahue MD TSHon 12-30-2024 TSH Qn 1.21 m[IU]/L Normal 0.40-4.50 [facility] Comment on above: Performed By: #### 8 99, 866, 7600, 6517, 496, 41352 #### [facility] [address], [address] [place] [address] Training Generalist: Jones Donahue MD Basic Metabolic Profile (BMP )on 11-12-2024 BUN Normal 4-19 [facility] Comment on above: Result Comment: Canc elled via OM: Order cancelled - Patient discharged Performed By: #### L 500.2500, L100.0500 ####[facility] [address] [place], [address] BUN/CRE Normal 10-20 [facility] Comment on above: Result Comment: Canc elled via OM: Order cancelled - Patient discharged Performed By: #### L 500.2500, L100.0500 ####[facility] [address] [place], [address] Calcium Normal 7.6-11.0 [facility] Comment on above: Result Comment: Canc elled via OM: Order cancelled - Patient discharged Performed By: #### L 500.2500, L100.0500 ####[facility] [address] [place], [address] CL Normal 98-108 [facility] Comment on above: Result Comment: Canc elled via OM: Order cancelled - Patient discharged Performed By: #### L 500.2500, L100.0500 ####[facility] [address] [place], [address] CO2 Normal 21.0-32.0 [facility] Comment on above: Result Comment: Canc elled via OM: Order cancelled - Patient discharged Performed By: #### L 500.2500, L100.0500 ####[facility] [address] [place], [address] CREAT,SERUM Normal 0.70-1.20 [facility] Comment on above: Result Comment: Canc elled via OM: Order cancelled - Patient discharged Performed By: #### L 500.2500, L100.0500 ####[facility] [address] [place], [address] eGFR Normal >60 [facility] Comment on above: Result Comment: Canc elled via OM: Order cancelled - Patient discharged Performed By: #### L 500.2500, L100.0500 ####[facility] [address] [place], [address] GAP Normal 5-15 [facility] Comment on above: Result Comment: Canc elled via OM: Order cancelled - Patient discharged Performed By: #### L 500.2500, L100.0500 ####[facility] [address] [place], [address] GLU Normal 70-99 [facility] Comment on above: Result Comment: Canc elled via OM: Order cancelled - Patient discharged Performed By: #### L 500.2500, L100.0500 ####[facility] [address] [place], [address] Potassium Normal 3.3-5.1 [facility] Comment on above: Result Comment: Canc elled via OM: Order cancelled - Patient discharged Performed By: #### L 500.2500, L100.0500 ####[facility] [address] [place], [address] Basic Metabolic Profile (BMP) Normal 133-145 [facility] Comment on above: Result Comment: Canc elled via OM: Order cancelled - Patient discharged Performed By: #### L 500.2500, L100.0500 ####[facility] [address] [place], [address] CBC-Complete Blood Cnt No Di ffon 11-12-2024 HCT Normal 40-54 [facility] Comment on above: Result Comment: Canc elled via OM: Order cancelled - Patient discharged Performed By: #### L 500.2500, L100.0500 ####[facility] [address] [place], [address] HGB Normal 13.0-16.5 [facility] Comment on above: Result Comment: Canc elled via OM: Order cancelled - Patient discharged Performed By: #### L 500.2500, L100.0500 ####[facility] [address] [place], [address] MCH Normal 27.0-32.0 [facility] Comment on above: Result Comment: Canc elled via OM: Order cancelled - Patient discharged Performed By: #### L 500.2500, L100.0500 ####[facility] [address] [place], [address] MCHC Normal 32-36 [facility] Comment on above: Result Comment: Canc elled via OM: Order cancelled - Patient discharged Performed By: #### L 500.2500, L100.0500 ####[facility] [address] [place], [address] MCV Normal 80-94 [facility] Comment on above: Result Comment: Canc elled via OM: Order cancelled - Patient discharged Performed By: #### L 500.2500, L100.0500 ####[facility] [address] [place], [address] PLT Normal 150-450 [facility] Comment on above: Result Comment: Canc elled via OM: Order cancelled - Patient discharged Performed By: #### L 500.2500, L100.0500 ####[facility] [address] [place], [address] RBC Normal 4.6-6.2 [facility] Comment on above: Result Comment: Canc elled via OM: Order cancelled - Patient discharged Performed By: #### L 500.2500, L100.0500 ####[facility] [address] [place], [address] RDW CV Normal 11.6-14.6 [facility] Comment on above: Result Comment: Canc elled via OM: Order cancelled - Patient discharged Performed By: #### L 500.2500, L100.0500 ####[facility] [address] [place], [address] RDW SD Normal 35.1-43.9 [facility] Comment on above: Result Comment: Canc elled via OM: Order cancelled - Patient discharged Performed By: #### L 500.2500, L100.0500 ####[facility] [address] [place], [address] WBC Normal 4.4-11.0 [facility] Comment on above: Result Comment: Canc elled via OM: Order cancelled - Patient discharged Performed By: #### L 500.2500, L100.0500 ####[facility] [address] [place], [address] Basic Metabolic Profile (BMP )on 11-11-2024 BUN Normal 4-19 [facility] Comment on above: Result Comment: Canc elled via OM: Order cancelled - Patient discharged Performed By: #### L 500.2500, L100.0500 ####[facility] [address] [place], [address] BUN/CRE Normal 10-20 [facility] Comment on above: Result Comment: Canc elled via OM: Order cancelled - Patient discharged Performed By: #### L 500.2500, L100.0500 ####[facility] [address] [place], [address] Calcium Normal 7.6-11.0 [facility] Comment on above: Result Comment: Canc elled via OM: Order cancelled - Patient discharged Performed By: #### L 500.2500, L100.0500 ####[facility] [address] [place], [address] CL Normal 98-108 [facility] Comment on above: Result Comment: Canc elled via OM: Order cancelled - Patient discharged Performed By: #### L 500.2500, L100.0500 ####[facility] [address] [place], [address] CO2 Normal 21.0-32.0 [facility] Comment on above: Result Comment: Canc elled via OM: Order cancelled - Patient discharged Performed By: #### L 500.2500, L100.0500 ####[facility] [facility] [address] [place], [address] CREAT,SERUM Normal 0.70-1.20 [facility] Comment on above: Result Comment: Canc elled via OM: Order cancelled - Patient discharged Performed By: #### L 500.2500, L100.0500 ####[facility] [address] [place], [address] eGFR Normal >60 [facility] Comment on above: Result Comment: Canc elled via OM: Order cancelled - Patient discharged Performed By: #### L 500.2500, L100.0500 ####[facility] [address] [place], [address] GAP Normal 5-15 [facility] Comment on above: Result Comment: Canc elled via OM: Order cancelled - Patient discharged Performed By: #### L 500.2500, L100.0500 ####[facility] [address] [place], [address] GLU Normal 70-99 [facility] Comment on above: Result Comment: Canc elled via OM: Order cancelled - Patient discharged Performed By: #### L 500.2500, L100.0500 ####[facility] [address] [place], [address] Potassium Normal 3.3-5.1 [facility] Comment on above: Result Comment: Canc elled via OM: Order cancelled - Patient discharged Performed By: #### L 500.2500, L100.0500 ####[facility] [address] [place], [address] Basic Metabolic Profile (BMP) Normal 133-145 [facility] Comment on above: Result Comment: Canc elled via OM: Order cancelled - Patient discharged Performed By: #### L 500.2500, L100.0500 ####[facility] [address] [place], [address] CBC-Complete Blood Cnt No Di ffon 11-11-2024 HCT Normal 40-54 [facility] Comment on above: Result Comment: Canc elled via OM: Order cancelled - Patient discharged Performed By: #### L 500.2500, L100.0500 ####[facility] [address] [place], [address] HGB Normal 13.0-16.5 [facility] Comment on above: Result Comment: Canc elled via OM: Order cancelled - Patient discharged Performed By: #### L 500.2500, L100.0500 ####[facility] [address] [place], [address] MCH Normal 27.0-32.0 [facility] Comment on above: Result Comment: Canc elled via OM: Order cancelled - Patient discharged Performed By: #### L 500.2500, L100.0500 ####[facility] [address] [place], [address] MCHC Normal 32-36 [facility] Comment on above: Result Comment: Canc elled via OM: Order cancelled - Patient discharged Performed By: #### L 500.2500, L100.0500 ####[facility] [address] [place], [address] MCV Normal 80-94 [facility] Comment on above: Result Comment: Canc elled via OM: Order cancelled - Patient discharged Performed By: #### L 500.2500, L100.0500 ####[facility] [address] [place], [address] PLT Normal 150-450 [facility] Comment on above: Result Comment: Canc elled via OM: Order cancelled - Patient discharged Performed By: #### L 500.2500, L100.0500 ####[facility] [address] [place], [address] RBC Normal 4.6-6.2 [facility] Comment on above: Result Comment: Canc elled via OM: Order cancelled - Patient discharged Performed By: #### L 500.2500, L100.0500 ####[facility] [address] [place], [address] RDW CV Normal 11.6-14.6 [facility] Comment on above: Result Comment: Canc elled via OM: Order cancelled - Patient discharged Performed By: #### L 500.2500, L100.0500 ####[facility] [address] [place], [address] RDW SD Normal 35.1-43.9 [facility] Comment on above: Result Comment: Canc elled via OM: Order cancelled - Patient discharged Performed By: #### L 500.2500, L100.0500 ####[facility] [address] [place], [address] WBC Normal 4.4-11.0 [facility] Comment on above: Result Comment: Canc elled via OM: Order cancelled - Patient discharged Performed By: #### L 500.2500, L100.0500 ####[facility] [address] [place], [address] Basic Metabolic Profile (BMP )on 11-10-2024 BUN Normal 4-19 [facility] Comment on above: Result Comment: Canc elled via OM: Order cancelled - Patient discharged Performed By: #### L 100.0500, L500.2500 ####[facility] [address] [place], [address] BUN/CRE Normal 10-20 [facility] Comment on above: Result Comment: Canc elled via OM: Order cancelled - Patient discharged Performed By: #### L 100.0500, L500.2500 ####[facility] [address] [place], [address] Calcium Normal 7.6-11.0 [facility] Comment on above: Result Comment: Canc elled via OM: Order cancelled - Patient discharged Performed By: #### L 100.0500, L500.2500 ####[facility] [address] [place], [address] CL Normal 98-108 [facility] Comment on above: Result Comment: Canc elled via OM: Order cancelled - Patient discharged Performed By: #### L 100.0500, L500.2500 ####[facility] [address] [place], [address] CO2 Normal 21.0-32.0 [facility] Comment on above: Result Comment: Canc elled via OM: Order cancelled - Patient discharged Performed By: #### L 100.0500, L500.2500 ####[facility] [address] [place], [address] CREAT,SERUM Normal 0.70-1.20 [facility] Comment on above: Result Comment: Canc elled via OM: Order cancelled - Patient discharged Performed By: #### L 100.0500, L500.2500 ####[facility] [address] [place], [address] eGFR Normal >60 [facility] Comment on above: Result Comment: Canc elled via OM: Order cancelled - Patient discharged Performed By: #### L 100.0500, L500.2500 ####[facility] [address] [place], [address] GAP Normal 5-15 [facility] Comment on above: Result Comment: Canc elled via OM: Order cancelled - Patient discharged Performed By: #### L 100.0500, L500.2500 ####[facility] [address] [place], [address] GLU Normal 70-99 [facility] Comment on above: Result Comment: Canc elled via OM: Order cancelled - Patient discharged Performed By: #### L 100.0500, L500.2500 ####[facility] [address] [place], [address] Potassium Normal 3.3-5.1 [facility] Comment on above: Result Comment: Canc elled via OM: Order cancelled - Patient discharged Performed By: #### L 100.0500, L500.2500 ####[facility] [address] [place], [address] Basic Metabolic Profile (BMP) Normal 133-145 [facility] Comment on above: Result Comment: Canc elled via OM: Order cancelled - Patient discharged Performed By: #### L 100.0500, L500.2500 ####[facility] [address] [place], [address] CBC-Complete Blood Cnt No Di ffon 11-10-2024 HCT Normal 40-54 [facility] Comment on above: Result Comment: Canc elled via OM: Order cancelled - Patient discharged Performed By: #### L 100.0500, L500.2500 ####[facility] [address] [place], [address] HGB Normal 13.0-16.5 [facility] Comment on above: Result Comment: Canc elled via OM: Order cancelled - Patient discharged Performed By: #### L 100.0500, L500.2500 ####[facility] [address] [place], [address] MCH Normal 27.0-32.0 [facility] Comment on above: Result Comment: Canc elled via OM: Order cancelled - Patient discharged Performed By: #### L 100.0500, L500.2500 ####[facility] [address] [place], [address] MCHC Normal 32-36 [facility] Comment on above: Result Comment: Canc elled via OM: Order cancelled - Patient discharged Performed By: #### L 100.0500, L500.2500 ####[facility] [address] [place], [address] MCV Normal 80-94 [facility] Comment on above: Result Comment: Canc elled via OM: Order cancelled - Patient discharged Performed By: #### L 100.0500, L500.2500 ####[facility] [address] [place], [address] PLT Normal 150-450 [facility] Comment on above: Result Comment: Canc elled via OM: Order cancelled - Patient discharged Performed By: #### L 100.0500, L500.2500 ####[facility] [address] [place], [address] RBC Normal 4.6-6.2 [facility] Comment on above: Result Comment: Canc elled via OM: Order cancelled - Patient discharged Performed By: #### L 100.0500, L500.2500 ####[facility] [address] [place], [address] RDW CV Normal 11.6-14.6 [facility] Comment on above: Result Comment: Canc elled via OM: Order cancelled - Patient discharged Performed By: #### L 100.0500, L500.2500 ####[facility] [address] [place], [address] RDW SD Normal 35.1-43.9 [facility] Comment on above: Result Comment: Canc elled via OM: Order cancelled - Patient discharged Performed By: #### L 100.0500, L500.2500 ####[facility] [address] [place], [address] WBC Normal 4.4-11.0 [facility] Comment on above: Result Comment: Canc elled via OM: Order cancelled - Patient discharged Performed By: #### L 100.0500, L500.2500 ####[facility] [address] [place], [address] Basic Metabolic Profile (BMP )on 11-09-2024 BUN Normal -19 [facility] Comment on above: Result Comment: Canc elled via OM: Order cancelled - Patient discharged Performed By: #### L 100.0500, L500.2500 ####[facility] [address] [place], [address] BUN/CRE Normal -20 [facility] Comment on above: Result Comment: Canc elled via OM: Order cancelled - Patient discharged Performed By: #### L 100.0500, L500.2500 ####[facility] [address] [place], [address] Calcium Normal 7.6-11.0 [facility] Comment on above: Result Comment: Canc elled via OM: Order cancelled - Patient discharged Performed By: #### L 100.0500, L500.2500 ####[facility] [address] [place], [address] CL Normal 98-108 [facility] Comment on above: Result Comment: Canc elled via OM: Order cancelled - Patient discharged Performed By: #### L 100.0500, L500.2500 ####[facility] [address] [place], [address] CO2 Normal 21.0-32.0 [facility] Comment on above: Result Comment: Canc elled via OM: Order cancelled - Patient discharged Performed By: #### L 100.0500, L500.2500 ####[facility] [address] [place], [address] CREAT,SERUM Normal 0.70-1.20 [facility] Comment on above: Result Comment: Canc elled via OM: Order cancelled - Patient discharged Performed By: #### L 100.0500, L500.2500 ####[facility] [address] [place], [address] eGFR Normal >60 [facility] Comment on above: Result Comment: Canc elled via OM: Order cancelled - Patient discharged Performed By: #### L 100.0500, L500.2500 ####[facility] [address] [place], [address] GAP Normal 5-15 [facility] Comment on above: Result Comment: Canc elled via OM: Order cancelled - Patient discharged Performed By: #### L 100.0500, L500.2500 ####[facility] [address] [place], [address] GLU Normal 70-99 [facility] Comment on above: Result Comment: Canc elled via OM: Order cancelled - Patient discharged Performed By: #### L 100.0500, L500.2500 ####[facility] [address] [place], [address] Potassium Normal 3.3-5.1 [facility] Comment on above: Result Comment: Canc elled via OM: Order cancelled - Patient discharged Performed By: #### L 100.0500, L500.2500 ####[facility] [address] [place], [address] Basic Metabolic Profile (BMP) Normal 133-145 [facility] Comment on above: Result Comment: Canc elled via OM: Order cancelled - Patient discharged Performed By: #### L 100.0500, L500.2500 ####[facility] [address] [place], [address] CBC-Complete Blood Cnt No Di ffon 11-09-2024 HCT Normal 40-54 [facility] Comment on above: Result Comment: Canc elled via OM: Order cancelled - Patient discharged Performed By: #### L 100.0500, L500.2500 ####[facility] [address] [place], [address] HGB Normal 13.0-16.5 [facility] Comment on above: Result Comment: Canc elled via OM: Order cancelled - Patient discharged Performed By: #### L 100.0500, L500.2500 ####[facility] [address] [place], [address] MCH Normal 27.0-32.0 [facility] Comment on above: Result Comment: Canc elled via OM: Order cancelled - Patient discharged Performed By: #### L 100.0500, L500.2500 ####[facility] [address] [place], [address] MCHC Normal 32-36 [facility] Comment on above: Result Comment: Canc elled via OM: Order cancelled - Patient discharged Performed By: #### L 100.0500, L500.2500 ####[facility] [address] [place], [address] MCV Normal 80-94 [facility] Comment on above: Result Comment: Canc elled via OM: Order cancelled - Patient discharged Performed By: #### L 100.0500, L500.2500 ####[facility] [address] [place], [address] PLT Normal 150-450 [facility] Comment on above: Result Comment: Canc elled via OM: Order cancelled - Patient discharged Performed By: #### L 100.0500, L500.2500 ####[facility] [address] [place], [address] RBC Normal 4.6-6.2 [facility] Comment on above: Result Comment: Canc elled via OM: Order cancelled - Patient discharged Performed By: #### L 100.0500, L500.2500 ####[facility] [address] [place], [address] RDW CV Normal 11.6-14.6 [facility] Comment on above: Result Comment: Canc elled via OM: Order cancelled - Patient discharged Performed By: #### L 100.0500, L500.2500 ####[facility] [address] [place], [address] RDW SD Normal 35.1-43.9 [facility] Comment on above: Result Comment: Canc elled via OM: Order cancelled - Patient discharged Performed By: #### L 100.0500, L500.2500 ####[facility] [address] [place], [address] WBC Normal 4.4-11.0 [facility] Comment on above: Result Comment: Canc elled via OM: Order cancelled - Patient discharged Performed By: #### L 100.0500, L500.2500 ####[facility] [address] [place], [address] Basic Metabolic Profile (BMP )on 11-08-2024 BUN Normal 4-19 [facility] Comment on above: Result Comment: Canc elled via OM: Order cancelled - Patient discharged Performed By: #### L 500.2500, L100.0500 ####[facility] [address] [place], [address] BUN/CRE Normal 10-20 [facility] Comment on above: Result Comment: Canc elled via OM: Order cancelled - Patient discharged Performed By: #### L 500.2500, L100.0500 ####[facility] [address] [place], [address] Calcium Normal 7.6-11.0 [facility] Comment on above: Result Comment: Canc elled via OM: Order cancelled - Patient discharged Performed By: #### L 500.2500, L100.0500 ####[facility] [address] [place], [address] CL Normal 98-108 [facility] Comment on above: Result Comment: Canc elled via OM: Order cancelled - Patient discharged Performed By: #### L 500.2500, L100.0500 ####[facility] [address] [place], [address] CO2 Normal 21.0-32.0 [facility] Comment on above: Result Comment: Canc elled via OM: Order cancelled - Patient discharged Performed By: #### L 500.2500, L100.0500 ####[facility] [address] [place], [address] CREAT,SERUM Normal 0.70-1.20 [facility] Comment on above: Result Comment: Canc elled via OM: Order cancelled - Patient discharged Performed By: #### L 500.2500, L100.0500 ####[facility] [address] [place], [address] eGFR Normal >60 [facility] Comment on above: Result Comment: Canc elled via OM: Order cancelled - Patient discharged Performed By: #### L 500.2500, L100.0500 ####[facility] [address] [place], [address] GAP Normal 5-15 [facility] Comment on above: Result Comment: Canc elled via OM: Order cancelled - Patient discharged Performed By: #### L 500.2500, L100.0500 ####[facility] [address] [place], [address] GLU Normal 70-99 [facility] Comment on above: Result Comment: Canc elled via OM: Order cancelled - Patient discharged Performed By: #### L 500.2500, L100.0500 ####[facility] [address] [place], [address] Potassium Normal 3.3-5.1 [facility] Comment on above: Result Comment: Canc elled via OM: Order cancelled - Patient discharged Performed By: #### L 500.2500, L100.0500 ####[facility] [address] [place], [address] Basic Metabolic Profile (BMP) Normal 133-145 [facility] Comment on above: Result Comment: Canc elled via OM: Order cancelled - Patient discharged Performed By: #### L 500.2500, L100.0500 ####[facility] [address] [place], [address] CBC-Complete Blood Cnt No Di ffon 11-08-2024 HCT Normal 40-54 [facility] Comment on above: Result Comment: Canc elled via OM: Order cancelled - Patient discharged Performed By: #### L 500.2500, L100.0500 ####[facility] [address] [place], [address] HGB Normal 13.0-16.5 [facility] Comment on above: Result Comment: Canc elled via OM: Order cancelled - Patient discharged Performed By: #### L 500.2500, L100.0500 ####[facility] [address] [place], [address] MCH Normal 27.0-32.0 [facility] Comment on above: Result Comment: Canc elled via OM: Order cancelled - Patient discharged Performed By: #### L 500.2500, L100.0500 ####[facility] [address] [place], [address] MCHC Normal 32-36 [facility] Comment on above: Result Comment: Canc elled via OM: Order cancelled - Patient discharged Performed By: #### L 500.2500, L100.0500 ####[facility] [address] [place], [address] MCV Normal 80-94 [facility] Comment on above: Result Comment: Canc elled via OM: Order cancelled - Patient discharged Performed By: #### L 500.2500, L100.0500 ####[facility] [address] [place], [address] PLT Normal 150-450 [facility] Comment on above: Result Comment: Canc elled via OM: Order cancelled - Patient discharged Performed By: #### L 500.2500, L100.0500 ####[facility] [address] [place], [address] RBC Normal 4.6-6.2 [facility] Comment on above: Result Comment: Canc elled via OM: Order cancelled - Patient discharged Performed By: #### L 500.2500, L100.0500 ####[facility] [address] [place], [address] RDW CV Normal 11.6-14.6 [facility] Comment on above: Result Comment: Canc elled via OM: Order cancelled - Patient discharged Performed By: #### L 500.2500, L100.0500 ####[facility] [address] [place], [address] RDW SD Normal 35.1-43.9 [facility] Comment on above: Result Comment: Canc elled via OM: Order cancelled - Patient discharged Performed By: #### L 500.2500, L100.0500 ####[facility] [address] [place], [address] WBC Normal 4.4-11.0 [facility] Comment on above: Result Comment: Canc elled via OM: Order cancelled - Patient discharged Performed By: #### L 500.2500, L100.0500 ####[facility] [address] [place], [address] Basic Metabolic Profile (BMP )on 11-07-2024 BUN Normal 4-19 [facility] Comment on above: Result Comment: Canc elled via OM: Order cancelled - Patient discharged Performed By: #### L 100.0500, L500.2500 ####[facility] [address] [place], [address] BUN/CRE Normal 10-20 [facility] Comment on above: Result Comment: Canc elled via OM: Order cancelled - Patient discharged Performed By: #### L 100.0500, L500.2500 ####[facility] [address] [place], [address] Calcium Normal 7.6-11.0 [facility] Comment on above: Result Comment: Canc elled via OM: Order cancelled - Patient discharged Performed By: #### L 100.0500, L500.2500 ####[facility] [address] [place], [address] CL Normal 98-108 [facility] Comment on above: Result Comment: Canc elled via OM: Order cancelled - Patient discharged Performed By: #### L 100.0500, L500.2500 ####[facility] [address] [place], [address] CO2 Normal 21.0-32.0 [facility] Comment on above: Result Comment: Canc elled via OM: Order cancelled - Patient discharged Performed By: #### L 100.0500, L500.2500 ####[facility] [address] [place], [address] CREAT,SERUM Normal 0.70-1.20 [facility] Comment on above: Result Comment: Canc elled via OM: Order cancelled - Patient discharged Performed By: #### L 100.0500, L500.2500 ####[facility] [address] [place], [address] eGFR Normal >60 [facility] Comment on above: Result Comment: Canc elled via OM: Order cancelled - Patient discharged Performed By: #### L 100.0500, L500.2500 ####[facility] [address] [place], [address] GAP Normal 5-15 [facility] Comment on above: Result Comment: Canc elled via OM: Order cancelled - Patient discharged Performed By: #### L 100.0500, L500.2500 ####[facility] [address] [place], [address] GLU Normal 70-99 [facility] Comment on above: Result Comment: Canc elled via OM: Order cancelled - Patient discharged Performed By: #### L 100.0500, L500.2500 ####[facility] [address] [place], [address] Potassium Normal 3.3-5.1 [facility] Comment on above: Result Comment: Canc elled via OM: Order cancelled - Patient discharged Performed By: #### L 100.0500, L500.2500 ####[facility] [address] [place], [address] Basic Metabolic Profile (BMP) Normal 133-145 [facility] Comment on above: Result Comment: Canc elled via OM: Order cancelled - Patient discharged Performed By: #### L 100.0500, L500.2500 ####[facility] [address] [place], [address] BUN Normal 4-19 [facility] Comment on above: Order Comment: Call MD with results STAT Result Comment: Canc elled via OM: MD Ordered Performed By: #### L 500.2500 ####[facility] [address] [place], [address] BUN/CRE Normal 10-20 [facility] Comment on above: Order Comment: Call MD with results STAT Result Comment: Canc elled via OM: MD Ordered Performed By: #### L 500.2500 ####[facility] [address] [place], [address] Calcium Normal 7.6-11.0 [facility] Comment on above: Order Comment: Call MD with results STAT Result Comment: Canc elled via OM: MD Ordered Performed By: #### L 500.2500 ####[facility] [address] [place], [address] CL Normal 98-108 [facility] Comment on above: Order Comment: Call MD with results STAT Result Comment: Canc elled via OM: MD Ordered Performed By: #### L 500.2500 ####[facility] [address] [place], [address] CO2 Normal 21.0-32.0 [facility] Comment on above: Order Comment: Call MD with results STAT Result Comment: Canc elled via OM: MD Ordered Performed By: #### L 500.2500 ####[facility] [address] [place], [address] CREAT,SERUM Normal 0.70-1.20 [facility] Comment on above: Order Comment: Call MD with results STAT Result Comment: Canc elled via OM: MD Ordered Performed By: #### L 500.2500 ####[facility] [address] [place], [address] eGFR Normal >60 [facility] Comment on above: Order Comment: Call MD with results STAT Result Comment: Canc elled via OM: MD Ordered Performed By: #### L 500.2500 ####[facility] [address] [place], [address] GAP Normal 5-15 [facility] Comment on above: Order Comment: Call MD with results STAT Result Comment: Canc elled via OM: MD Ordered Performed By: #### L 500.2500 ####[facility] [address] [place], [address] GLU Normal 70-99 [facility] Comment on above: Order Comment: Call MD with results STAT Result Comment: Canc elled via OM: MD Ordered Performed By: #### L 500.2500 ####[facility] [address] [place], [address] Potassium Normal 3.3-5.1 [facility] Comment on above: Order Comment: Call MD with results STAT Result Comment: Canc elled via OM: MD Ordered Performed By: #### L 500.2500 ####[facility] [address] [place], [address] Basic Metabolic Profile (BMP) Normal 133-145 [facility] Comment on above: Order Comment: Call MD with results STAT Result Comment: Canc elled via OM: MD Ordered Performed By: #### L 500.2500 ####[facility] [address] [place], [address] CBC-Complete Blood Cnt No Di ffon 11-07-2024 HCT Normal 40-54 [facility] Comment on above: Result Comment: Canc elled via OM: Order cancelled - Patient discharged Performed By: #### L 100.0500, L500.2500 ####[facility] [address] [place], [address] HGB Normal 13.0-16.5 [facility] Comment on above: Result Comment: Canc elled via OM: Order cancelled - Patient discharged Performed By: #### L 100.0500, L500.2500 ####[facility] [address] [place], [address] MCH Normal 27.0-32.0 [facility] Comment on above: Result Comment: Canc elled via OM: Order cancelled - Patient discharged Performed By: #### L 100.0500, L500.2500 ####[facility] [address] [place], [address] MCHC Normal 32-36 [facility] Comment on above: Result Comment: Canc elled via OM: Order cancelled - Patient discharged Performed By: #### L 100.0500, L500.2500 ####[facility] [address] [place], [address] MCV Normal 80-94 [facility] Comment on above: Result Comment: Canc elled via OM: Order cancelled - Patient discharged Performed By: #### L 100.0500, L500.2500 ####[facility] [address] [place], [address] PLT Normal 150-450 [facility] Comment on above: Result Comment: Canc elled via OM: Order cancelled - Patient discharged Performed By: #### L 100.0500, L500.2500 ####[facility] [address] [place], [address] RBC Normal 4.6-6.2 [facility] Comment on above: Result Comment: Canc elled via OM: Order cancelled - Patient discharged Performed By: #### L 100.0500, L500.2500 ####[facility] [address] [place], [address] RDW CV Normal 11.6-14.6 [facility] Comment on above: Result Comment: Canc elled via OM: Order cancelled - Patient discharged Performed By: #### L 100.0500, L500.2500 ####[facility] [address] [place], [address] RDW SD Normal 35.1-43.9 [facility] Comment on above: Result Comment: Carlton elled via OM: Order cancelled - Patient discharged Performed By: #### L 100.0500, L500.2500 ####[facility] [address] [place], [address] WBC Normal 4.4-11.0 [facility] Comment on above: Result Comment: Carlton elled via OM: Order cancelled - Patient discharged Performed By: #### L 100.0500, L500.2500 ####[facility] [address] [place], [address] Anion gap in Serum or Plasma Ordered By: Izaiah Oliveros on 11-06-2024 Anion gap [Moles/Vol] 11 mmol/L 5-15 [facility] Arterial patency Wrist arter y --pre arterial punctureOrdered By: Charity Michele on 11-06-2024 Anne Test Positive [facility] BUN/creatinine ratioOrdered By: Izaiah Oliveros on 11-06-2024 Urea nitrogen/Creatinine [Mass ratio] 8.8 mg/mg Low 10- [facility] Base excess Calc (BldV) [Mol es/Vol]Ordered By: Charity Michele on 11-06-2024 Blood Gas Base Excess 0 mmol/L -2-2 [facility] Basic Metabolic Profile (BMP )on 11-06-2024 BUN Normal 4-19 [facility] Comment on above: Order Comment: Call with results STAT Result Comment: Carlton elled via OM: MD Ordered Performed By: #### L 500.2500 ####[facility] [address] [place], [address] BUN/CRE Normal 10-20 [facility] Comment on above: Order Comment: Call with results STAT Result Comment: Carlton elled via OM: MD Ordered Performed By: #### L 500.2500 ####[facility] [address] [place], [address] Calcium Normal 7.6-11.0 [facility] Comment on above: Order Comment: Call MD with results STAT Result Comment: Canc elled via OM: MD Ordered Performed By: #### L 500.2500 ####[facility] [address] [place], [address] CL Normal 98-108 [facility] Comment on above: Order Comment: Call MD with results STAT Result Comment: Canc elled via OM: MD Ordered Performed By: #### L 500.2500 ####[facility] [address] [place], [address] CO2 Normal 21.0-32.0 [facility] Comment on above: Order Comment: Call MD with results STAT Result Comment: Canc elled via OM: MD Ordered Performed By: #### L 500.2500 ####[facility] [address] [place], [address] CREAT,SERUM Normal 0.70-1.20 [facility] Comment on above: Order Comment: Call MD with results STAT Result Comment: Canc elled via OM: MD Ordered Performed By: #### L 500.2500 ####[facility] [address] [place], [address] eGFR Normal >60 [facility] Comment on above: Order Comment: Call MD with results STAT Result Comment: Canc elled via OM: MD Ordered Performed By: #### L 500.2500 ####[facility] [address] [place], [address] GAP Normal 5-15 [facility] Comment on above: Order Comment: Call MD with results STAT Result Comment: Canc elled via OM: MD Ordered Performed By: #### L 500.2500 ####[facility] [address] [place], [address] GLU Normal 70-99 [facility] Comment on above: Order Comment: Call MD with results STAT Result Comment: Canc elled via OM: MD Ordered Performed By: #### L 500.2500 ####[facility] [address] [place], [address] Potassium Normal 3.3-5.1 [facility] Comment on above: Order Comment: Call MD with results STAT Result Comment: Canc elled via OM: MD Ordered Performed By: #### L 500.2500 ####[facility] [address] [place], [address] Basic Metabolic Profile (BMP) Normal 133-145 [facility] Comment on above: Order Comment: Call MD with results STAT Result Comment: Canc elled via OM: MD Ordered Performed By: #### L 500.2500 ####[facility] [address] [place], [address] BUN Normal 4-19 [facility] Comment on above: Order Comment: Call MD with results STAT Result Comment: Canc elled via OM: MD Ordered Performed By: #### L 500.2500 ####[facility] [address] [place], [address] BUN/CRE Normal 10-20 [facility] Comment on above: Order Comment: Call MD with results STAT Result Comment: Canc elled via OM: MD Ordered Performed By: #### L 500.2500 ####[facility] [address] [place], [address] Calcium Normal 7.6-11.0 [facility] Comment on above: Order Comment: Call MD with results STAT Result Comment: Canc elled via OM: MD Ordered Performed By: #### L 500.2500 ####[facility] [address] [place], [address] CL Normal 98-108 [facility] Comment on above: Order Comment: Call MD with results STAT Result Comment: Canc elled via OM: MD Ordered Performed By: #### L 500.2500 ####[facility] [address] [place], [address] CO2 Normal 21.0-32.0 [facility] Comment on above: Order Comment: Call MD with results STAT Result Comment: Canc elled via OM: MD Ordered Performed By: #### L 500.2500 ####[facility] [address] [place], [address] CREAT,SERUM Normal 0.70-1.20 [facility] Comment on above: Order Comment: Call MD with results STAT Result Comment: Canc elled via OM: MD Ordered Performed By: #### L 500.2500 ####[facility] [address] [place], [address] eGFR Normal >60 [facility] Comment on above: Order Comment: Call MD with results STAT Result Comment: Canc elled via OM: MD Ordered Performed By: #### L 500.2500 ####[facility] [address] [place], [address] GAP Normal 5-15 [facility] Comment on above: Order Comment: Call MD with results STAT Result Comment: Canc elled via OM: MD Ordered Performed By: #### L 500.2500 ####[facility] [address] [place], [address] GLU Normal 70-99 [facility] Comment on above: Order Comment: Call MD with results STAT Result Comment: Canc elled via OM: MD Ordered Performed By: #### L 500.2500 ####[facility] [address] [place], [address] Potassium Normal 3.3-5.1 [facility] Comment on above: Order Comment: Call MD with results STAT Result Comment: Canc elled via OM: MD Ordered Performed By: #### L 500.2500 ####[facility] [address] [place], [address] Basic Metabolic Profile (BMP) Normal 133-145 [facility] Comment on above: Order Comment: Call MD with results STAT Result Comment: Canc elled via OM: MD Ordered Performed By: #### L 500.2500 ####[facility] [address] [place], [address] BUN/CRE 8.8 RATIO Low 10-20 [facility] Comment on above: Order Comment: Call MD with results STAT Performed By: #### L 500.2500 ####[facility] [address] [place], [address] Calcium [Mass/Vol] 8.5 mg/dL Normal 7.6-11.0 [facility] Comment on above: Order Comment: Call MD with results STAT Performed By: #### L 500.2500 ####[facility] [address] [place], [address] Chloride [Moles/Vol] 107 mmol/L Normal 98-108 [facility] Comment on above: Order Comment: Call MD with results STAT Performed By: #### L 500.2500 ####[facility] [address] [place], [address] CO2 [Moles/Vol] 22.8 mmol/L Normal 21.0-32.0 [facility] Comment on above: Order Comment: Call MD with results STAT Performed By: #### L 500.2500 ####[facility] [address] [place], [address] Creatinine [Mass/Vol] 0.79 mg/dL Normal 0.70-1.20 [facility] Comment on above: Order Comment: Call MD with results STAT Performed By: #### L 500.2500 ####[facility] [address] [place], [address] ECRCL 151.43 ml/min Normal 50-250 [facility] Comment on above: Order Comment: Call MD with results STAT Performed By: #### L 500.2500 ####[facility] [address] [place], [address] GAP 11 Normal 5-15 [facility] Comment on above: Order Comment: Call MD with results STAT Performed By: #### L 500.2500 ####[facility] [address] [place], [address] GFR/1.73 sq M.predicted among non-blacks MDRD (S/P/Bld) [Vol rate/Area] 124 mL/min/{1.73_m2} Normal >60 [facility] Comment on above: Order Comment: Call MD with results STAT Result Comment: mL/m in/1.73m2 CKD-EPI Creatinine Equation (2020) Performed By: #### L 500.2500 ####[facility] [address] [place], [address] Glucose [Mass/Vol] 67 mg/dL Low 70-99 [facility] Comment on above: Order Comment: Call with results STAT Performed By: #### L 500.2500 ####[facility] [address] [place], [address] Potassium [Moles/Vol] 3.3 mmol/L Normal 3.3-5.1 [facility] Comment on above: Order Comment: Call MD with results STAT Performed By: #### L 500.2500 ####[facility] [address] [place], [address] Sodium [Moles/Vol] 141 mmol/L Normal 133-145 [facility] Comment on above: Order Comment: Call MD with results STAT Performed By: #### L 500.2500 ####[facility] [address] [place], [address] Urea nitrogen [Mass/Vol] 7 mg/dL Normal 4-19 [facility] Comment on above: Order Comment: Call with results STAT Performed By: #### L 500.2500 ####[facility] [address] [place], [address] BUN/CRE 10.4 RATIO Normal 10-20 [facility] Comment on above: Order Comment: Call MD with results STAT Performed By: #### L 500.2500, L501.6901 ####[facility] [address] [place], [address] Urea nitrogen [Mass/Vol] 8 mg/dL Normal 4-19 [facility] Comment on above: Order Comment: Call MD with results STAT Performed By: #### L 500.2500, L501.6901 ####[facility] [address] [place], [address] BUN/CRE 11.3 RATIO Normal 10-20 [facility] Comment on above: Performed By: #### L 501.2300, L500.2500 ####[facility] [address] [place], [address] Calcium [Mass/Vol] 8.4 mg/dL Normal 7.6-11.0 [facility] Comment on above: Performed By: #### L 501.2300, L500.2500 ####[facility] [address] [place], [address] Chloride [Moles/Vol] 108 mmol/L Normal 98-108 [facility] Comment on above: Performed By: #### L 501.2300, L500.2500 ####[facility] [address] [place], [address] CO2 [Moles/Vol] 23.2 mmol/L Normal 21.0-32.0 [facility] Comment on above: Performed By: #### L 501.2300, L500.2500 ####[facility] [address] [place], [address] Creatinine [Mass/Vol] 0.81 mg/dL Normal 0.70-1.20 [facility] Comment on above: Performed By: #### L 501.2300, L500.2500 ####[facility] [address] [place], [address] ECRCL 147.70 ml/min Normal 50-250 [facility] Comment on above: Performed By: #### L 501.2300, L500.2500 ####[facility] [address] [place], [address] GAP 9 Normal 5-15 [facility] Comment on above: Performed By: #### L 501.2300, L500.2500 ####[facility] [address] [place], [address] GFR/1.73 sq M.predicted among non-blacks MDRD (S/P/Bld) [Vol rate/Area] 123 mL/min/{1.73_m2} Normal >60 [facility] Comment on above: Result Comment: mL/m in/1.73m2 CKD-EPI Creatinine Equation (2020) Performed By: #### L 501.2300, L500.2500 ####[facility] [address] [place], [address] Glucose [Mass/Vol] 84 mg/dL Normal 70-99 [facility] Comment on above: Performed By: #### L 501.2300, L500.2500 ####[facility] [address] [place], [address] Potassium [Moles/Vol] 2.9 mmol/L Low 3.3-5.1 [facility] Comment on above: Performed By: #### L 501.2300, L500.2500 ####[facility] [address] [place], [address] Sodium [Moles/Vol] 140 mmol/L Normal 133-145 [facility] [facility] Comment on above: Performed By: #### L 501.2300, L500.2500 ####[facility] [address] [place], [address] Urea nitrogen [Mass/Vol] 9 mg/dL Normal 4-19 [facility] Comment on above: Performed By: #### L 501.2300, L500.2500 ####[facility] [address] [place], [address] BUN Normal 4-19 [facility] Comment on above: Order Comment: Call MD with results STAT Result Comment: OVER LAPPING Performed By: #### L 500.2500 ####[facility] [address] [place], [address] BUN/CRE Normal 10-20 [facility] Comment on above: Order Comment: Call MD with results STAT Result Comment: OVER LAPPING Performed By: #### L 500.2500 ####[facility] [address] [place], [address] Calcium Normal 7.6-11.0 [facility] Comment on above: Order Comment: Call MD with results STAT Result Comment: OVER LAPPING Performed By: #### L 500.2500 ####[facility] [address] [place], [address] CL Normal 98-108 [facility] Comment on above: Order Comment: Call MD with results STAT Result Comment: OVER LAPPING Performed By: #### L 500.2500 ####[facility] [address] [place], [address] CO2 Normal 21.0-32.0 [facility] Comment on above: Order Comment: Call MD with results STAT Result Comment: OVER LAPPING Performed By: #### L 500.2500 ####[facility] [address] [place], [address] CREAT,SERUM Normal 0.70-1.20 [facility] Comment on above: Order Comment: Call MD with results STAT Result Comment: OVER LAPPING Performed By: #### L 500.2500 ####[facility] [address] [place], [address] eGFR Normal >60 [facility] Comment on above: Order Comment: Call MD with results STAT Result Comment: OVER LAPPING Performed By: #### L 500.2500 ####[facility] [address] [place], [address] GAP Normal 5-15 [facility] Comment on above: Order Comment: Call MD with results STAT Result Comment: OVER LAPPING Performed By: #### L 500.2500 ####[facility] [address] [place], [address] GLU Normal 70-99 [facility] Comment on above: Order Comment: Call MD with results STAT Result Comment: OVER LAPPING Performed By: #### L 500.2500 ####[facility] [address] [place], [address] Potassium Normal 3.3-5.1 [facility] Comment on above: Order Comment: Call MD with results STAT Result Comment: OVER LAPPING Performed By: #### L 500.2500 ####[facility] [address] [place], [address] Basic Metabolic Profile (BMP) Normal 133-145 [facility] Comment on above: Order Comment: Call MD with results STAT Result Comment: OVER LAPPING Performed By: #### L 500.2500 ####[facility] [address] [place], [address] BUN/CRE 12.1 RATIO Normal 10-20 [facility] Comment on above: Order Comment: Call MD with results STAT Performed By: #### L 500.2500 ####[facility] [address] [place], [address] Calcium [Mass/Vol] 8.6 mg/dL Normal 7.6-11.0 [facility] Comment on above: Order Comment: Call MD with results STAT Performed By: #### L 500.2500 ####[facility] [address] [place], [address] Chloride [Moles/Vol] 106 mmol/L Normal 98-108 [facility] Comment on above: Order Comment: Call MD with results STAT Performed By: #### L 500.2500 ####[facility] [address] [place], [address] CO2 [Moles/Vol] 21.0 mmol/L Normal 21.0-32.0 [facility] Comment on above: Order Comment: Call MD with results STAT Performed By: #### L 500.2500 ####[facility] [address] [place], [address] Creatinine [Mass/Vol] 0.97 mg/dL Normal 0.70-1.20 [facility] Comment on above: Order Comment: Call MD with results STAT Performed By: #### L 500.2500 ####[facility] [address] [place], [address] ECRCL 123.33 ml/min Normal 50-250 [facility] Comment on above: Order Comment: Call MD with results STAT Performed By: #### L 500.2500 ####[facility] [address] [place], [address] GAP 12 Normal 5-15 [facility] Comment on above: Order Comment: Call MD with results STAT Performed By: #### L 500.2500 ####[facility] [address] [place], [address] GFR/1.73 sq M.predicted among non-blacks MDRD (S/P/Bld) [Vol rate/Area] 109 mL/min/{1.73_m2} Normal >60 [facility] Comment on above: Order Comment: Call MD with results STAT Result Comment: mL/m in/1.73m2 CKD-EPI Creatinine Equation (2020) Performed By: #### L 500.2500 ####[facility] [address] [place], [address] Glucose [Mass/Vol] 112 mg/dL High 70-99 [facility] Comment on above: Order Comment: Call MD with results STAT Performed By: #### L 500.2500 ####[facility] [address] [place], [address] Potassium [Moles/Vol] 3.1 mmol/L Low 3.3-5.1 [facility] Comment on above: Order Comment: Call MD with results STAT Performed By: #### L 500.2500 ####[facility] [address] [place], [address] Sodium [Moles/Vol] 139 mmol/L Normal 133-145 [facility] Comment on above: Order Comment: Call MD with results STAT Performed By: #### L 500.2500 ####[facility] [address] [place], [address] Urea nitrogen [Mass/Vol] 12 mg/dL Normal 4-19 [facility] Comment on above: Order Comment: Call MD with results STAT Performed By: #### L 500.2500 ####[facility] [address] [place], [address] BUN/CRE 12.0 RATIO Normal 10-20 [facility] Comment on above: Performed By: #### L 500.2500, L501.6901 ####[facility] [address] [place], [address] Calcium [Mass/Vol] 8.6 mg/dL Normal 7.6-11.0 [facility] Comment on above: Performed By: #### L 500.2500, L501.6901 ####[facility] [address] [place], [address] Chloride [Moles/Vol] 100 mmol/L Normal 98-108 [facility] Comment on above: Performed By: #### L 500.2500, L501.6901 ####[facility] [address] [place], [address] CO2 [Moles/Vol] 16.1 mmol/L Low 21.0-32.0 [facility] Comment on above: Performed By: #### L 500.2500, L501.6901 ####[facility] [address] [place], [address] Creatinine [Mass/Vol] 1.17 mg/dL Normal 0.70-1.20 [facility] Comment on above: Performed By: #### L 500.2500, L501.6901 ####[facility] [address] [place], [address] ECRCL 102.25 ml/min Normal 50-250 [facility] Comment on above: Performed By: #### L 500.2500, L501.6901 ####[facility] [address] [place], [address] GAP 18 High 5-15 [facility] Comment on above: Performed By: #### L 500.2500, L501.6901 ####[facility] [address] [place], [address] GFR/1.73 sq M.predicted among non-blacks MDRD (S/P/Bld) [Vol rate/Area] 87 mL/min/{1.73_m2} Normal >60 [facility] Comment on above: Result Comment: mL/m in/1.73m2 CKD-EPI Creatinine Equation (2020) Performed By: #### L 500.2500, L501.6901 ####[facility] [address] [place], [address] Glucose [Mass/Vol] 270 mg/dL High 70-99 [facility] Comment on above: Performed By: #### L 500.2500, L501.6901 ####[facility] [address] [place], [address] Potassium [Moles/Vol] 3.4 mmol/L Normal 3.3-5.1 [facility] Comment on above: Performed By: #### L 500.2500, L501.6901 ####[facility] [address] [place], [address] Sodium [Moles/Vol] 135 mmol/L Normal 133-145 [facility] Comment on above: Performed By: #### L 500.2500, L501.6901 ####[facility] [address] [place], [address] Urea nitrogen [Mass/Vol] 14 mg/dL Normal 4-19 [facility] Comment on above: Performed By: #### L 500.2500, L501.6901 ####[facility] [address] [place], [address] Bedside Glucoseon 11-06-2024 FINGERSTICK GLU 80 mg/dL Normal 74-106 [facility] Comment on above: Result Comment: ETHEL GEMENT OF PATIENT CARE PER NURSING PROTOCOL Performed By: #### L 501.080 ####[facility] [address] [place], [address] FINGERSTICK GLU 78 mg/dL Normal 74-106 [facility] Comment on above: Result Comment: ETHEL GEMENT OF PATIENT CARE PER NURSING PROTOCOL Performed By: #### L 501.080 ####[facility] [address] [place], [address] FINGERSTICK GLU 102 mg/dL Normal 74-106 [facility] Comment on above: Result Comment: ETHEL GEMENT OF PATIENT CARE PER NURSING PROTOCOL Performed By: #### L 501.080 ####[facility] [address] [place], [address] FINGERSTICK GLU 68 mg/dL Low 74-106 [facility] Comment on above: Result Comment: ETHEL GEMENT OF PATIENT CARE PER NURSING PROTOCOL Performed By: #### L 501.080 ####[facility] [address] [place], [address] FINGERSTICK GLU 76 mg/dL Normal 74-106 [facility] Comment on above: Result Comment: ETHEL GEMENT OF PATIENT CARE PER NURSING PROTOCOL Performed By: #### L 501.080 ####[facility] [address] [place], [address] FINGERSTICK GLU 87 mg/dL Normal 74-106 [facility] Comment on above: Result Comment: ETHEL GEMENT OF PATIENT CARE PER NURSING PROTOCOL Performed By: #### L 501.080 ####[facility] [address] [place], [address] FINGERSTICK GLU 92 mg/dL Normal 74-106 [facility] Comment on above: Result Comment: ETHEL GEMENT OF PATIENT CARE PER NURSING PROTOCOL Performed By: #### L 501.080 ####[facility] [address] [place], [address] FINGERSTICK GLU 101 mg/dL Normal 74-106 [facility] Comment on above: Result Comment: ETHEL GEMENT OF PATIENT CARE PER NURSING PROTOCOL Performed By: #### L 501.080 ####[facility] [address] [place], [address] FINGERSTICK GLU 124 mg/dL High 74-106 [facility] Comment on above: Result Comment: ETHEL GEMENT OF PATIENT CARE PER NURSING PROTOCOL Performed By: #### L 501.080 ####[facility] [address] [place], [address] FINGERSTICK GLU 124 mg/dL High 74-106 [facility] Comment on above: Result Comment: ETHEL GEMENT OF PATIENT CARE PER NURSING PROTOCOL Performed By: #### L 501.080 ####[facility] [address] [place], [address] FINGERSTICK GLU 113 mg/dL High 74-106 [facility] Comment on above: Result Comment: ETHEL GEMENT OF PATIENT CARE PER NURSING PROTOCOL Performed By: #### L 501.080 ####[facility] [address] [place], [address] FINGERSTICK GLU 416 mg/dL High 74-106 [facility] Comment on above: Result Comment: ETHEL GEMENT OF PATIENT CARE PER NURSING PROTOCOL Performed By: #### L 501.080 ####[facility] [address] [place], [address] FINGERSTICK GLU 133 mg/dL High 74-106 [facility] Comment on above: Result Comment: ETHEL GEMENT OF PATIENT CARE PER NURSING PROTOCOL Performed By: #### L 501.080 ####[facility] [address] [place], [address] Blood Gases by [facility] 025 Base excess Calc (Bld) [Moles/Vol] 0 mmol/L Normal -2 to +2 [facility] Comment on above: Performed By: #### L 9000.0800 ####[facility] [address] [place], [address] CO2 [Moles/Vol] 26 mmol/L Normal [facility] Comment on above: Performed By: #### L 9000.0800 ####[facility] [address] [place], [address] SO2 96 Normal 95-99 [facility] Comment on above: Performed By: #### L 9000.0800 ####[facility] [address] [place], [address] ANNE TEST Positive Normal [facility] Comment on above: Performed By: #### L 9000.0800 ####[facility] [address] [place], [address] Blood Gas Type ART Normal [facility] Comment on above: Performed By: #### L 9000.0800 ####[facility] [address] [place], [address] HCO3 (Bld) [Moles/Vol] 25.1 mmol/L Normal 22-26 [facility] Comment on above: Performed By: #### L 9000.0800 ####[facility] [address] [place], [address] Mode Not entered Normal [facility] Comment on above: Performed By: #### L 9000.0800 ####[facility] [address] [place], [address] O2 Delivery Dev Not entered Normal [facility] Comment on above: Performed By: #### L 9000.0800 ####[facility] [address] [place], [address] pCO2 43.2 mmHg Normal 35-45 [facility] Comment on above: Performed By: #### L 9000.0800 ####[facility] [address] [place], [address] pH (Bld) 7.37 [pH] Normal 7.35-7.45 [facility] Comment on above: Performed By: #### L 9000.0800 ####[facility] [address] [place], [address] PO2 82 mmHG Normal 75-100 [facility] Comment on above: Performed By: #### L 9000.0800 ####[facility] [address] [place], [address] SITE R Radial Normal [facility] Comment on above: Performed By: #### L 9000.0800 ####[facility] [address] [place], [address] Blood bicarbonate measuremen tOrdered By: Charity Michele on 11-06-2024 Blood Gas Bicarbonate Actual 25.1 mmol/L - [facility] CBC-Complete Blood Cnt No Di ffon 11-06-2024 Erythrocyte distribution width (RBC) [Ratio] 12.7 % Normal 11.6-14.6 [facility] Comment on above: Performed By: #### L 100.0500 ####[facility] [address] [place], [address] Hematocrit (Bld) [Volume fraction] 37.4 % Low 40-54 [facility] Comment on above: Performed By: #### L 100.0500 ####[facility] [address] [place], [address] Hemoglobin (Bld) [Mass/Vol] 13.3 g/dL Normal 13.0-16. 5 [facility] Comment on above: Performed By: #### L 100.0500 ####[facility] [address] [place], [address] MCH (RBC) [Entitic mass] 30.2 pg Normal 27.0-32.0 [facility] Comment on above: Performed By: #### L 100.0500 ####[facility] [address] [place], [address] MCHC (RBC) [Mass/Vol] 35.6 g/dL Normal 32-36 [facility] Comment on above: Performed By: #### L 100.0500 ####[facility] [address] [place], [address] MCV (RBC) [Entitic vol] 85.0 fL Normal 80-94 [facility] Comment on above: Performed By: #### L 100.0500 ####[facility] [address] [place], [address] Platelet mean volume (Bld) [Entitic vol] 8.8 fL Normal 6.2-12.0 [facility] Comment on above: Performed By: #### L 100.0500 ####[facility] [address] [place], [address] Platelets (Bld) [#/Vol] 213 10*3/uL Normal 150-450 [facility] Comment on above: Performed By: #### L 100.0500 ####[facility] [address] [place], [place], [phone](232) RBC (Bld) [#/Vol] 4.40 10*6/uL Low 4.6-6.2 [facility] Comment on above: Performed By: #### L 100.0500 ####[facility] [address] [place], [place], [phone](138) RDW SD 39.2 fl Normal 35.1-43.9 [facility] Comment on above: Performed By: #### L 100.0500 ####[facility] [address] [place], [place], [phone](318) WBC (Bld) [#/Vol] 5.1 10*3/uL Normal 4.4-11.0 [facility] Comment on above: Performed By: #### L 100.0500 ####[facility] [address] [place], [place], [id number] Carbon dioxide, total [Moles /volume] in Central venous bloodOrdered By: Izaiah Oliveros on 11-06-2024 CO2 [Moles/Vol] 22.8 mmol/L 21.0-32.0 [facility] Chloride assayOrdered By: Robson Oliveros on 11-06-2024 Chloride [Moles/Vol] 107 mmol/L 98-108 [facility] Discharge Instructionon 10-21 Discharge Instruction Normal [facility] Erythrocyte distribution wid th ratioOrdered By: Charity Michele on 11-06-2024 Erythrocyte distribution width (RBC) [Ratio] 12.7 % 11.6-14.6 [facility] Erythrocyte distribution wid th standard deviationOrdered By: Charity Michele on 11-06-2024 Erythrocyte distribution width (RBC) [Entitic vol] 39.2 fL 35.1-43.9 [facility] Estimation of creatinine josh aranceOrdered By: Izaiah Oliveros on 11-06-2024 Estimated Creatinine Clearance Calc 151.43 ml/min 50-250 [facility] GFR/1.73 sq M.predicted kirstin g non-blacks MDRD (S/P/Bld) [Vol rate/Area]Ordered By: Izaiah Oliveros on 11-06-2024 Estimated GFR (MDRD) Non-Af Amer 124 >60 [facility] Comment on above: mL/min/1.73m2 CKD-EP I Creatinine Equation (2020) [facility] deOrdered By: Peter Toth on 11-06-2024 Bedside Glucose (Misc Panel) 80 mg/dL 74-106 [facility] Comment on above: MANAGEMENT OF PATIEN T CARE PER NURSING PROTOCOL Hematocrit Auto (Bld) [Volum e fraction]Ordered By: Charity Michele on 11-06-2024 Hematocrit (Bld) [Volume fraction] 37.4 % Low 40-54 [facility] Hemoglobin measurementOrdere d By: Charity Michele on 11-06-2024 Hemoglobin (Bld) [Mass/Vol] 13.3 g/dL 13.0-16. 5 [facility] L501.6901on 11-06-2024 BETA-HYDROXYBUT 0.1 mmol/L Normal 0.0-0.3 [facility] Comment on above: Performed By: #### L 500.2500, L501.6901 ####[facility] [address] [place], [address] BETA-HYDROXYBUT 2.5 mmol/L Normal 0.0-0.3 [facility] Comment on above: Performed By: #### L 500.2500, L501.6901 ####[facility] [address] [place], [address] MCV (mean corpuscular volume ) determinationOrdered By: Charity Michele on 11-06-2024 MCV (RBC) [Entitic vol] 85.0 fL 80-94 [facility] Mean corpuscular hemoglobin (MCH) determinationOrdered By: Charity Michele on 11-06-2024 MCH (RBC) [Entitic mass] 30.2 pg 27.0-32.0 [facility] Mean corpuscular hemoglobin concentration (MCHC) determinationOrdered By: Charity Michele on 11-06-2024 MCHC (RBC) [Mass/Vol] 35.6 g/dL 32-36 [facility] Mean platelet volume determi nationOrdered By: Charity Michele on 11-06-2024 Platelet mean volume (Bld) [Entitic vol] 8.8 fL 6.2-12.0 [facility] No Panel InformationOrdered By: Izaiah Oliveros on 11-06-2024 Beta-Hydroxybutyric Acid mmol/L 0.1 mmol/L 0.0-0.3 [facility] No Panel InformationOrdered By: Charity Michele on 11-06-2024 Blood Gas Sample Site R Radial [facility] Blood Gas Specimen Type ART [facility] Blood Gas Vent Mode Not entered [facility] Oxygen Delivery Device Not entered [facility] Oxygen saturation measuremen tOrdered By: Charity Michele on 11-06-2024 Blood Gas Oxygen Saturation 96 % 95-99 [facility] Partial pressure of carbon d ioxide measurementOrdered By: Charity Michele on 11-06-2024 Arterial Blood Partial Pressure CO2 43.2 mmHg 35-45 [facility] Partial pressure of oxygen m easurementOrdered By: Charity Michele on 11-06-2024 Arterial Blood Partial Pressure O2 82 mmHG 75-100 [facility] Phosphoruson 11-06-2024 Phosphate [Mass/Vol] 2.4 mg/dL Low 2.7-4.5 [facility] Comment on above: Performed By: #### L 501.2300, L500.2500 ####[facility] [address] [place], [id number] Platelet countOrdered By: Terence Michele on 11-06-2024 Platelets (Bld) [#/Vol] 213 10*3/uL 150-450 [facility] Potassium (Unsp spec) [Mass/ Vol]Ordered By: Izaiah Oliveros on 11-06-2024 Potassium [Moles/Vol] 3.3 mmol/L 3.3-5.1 [facility] RBC Auto (Bld) [#/Vol]Ordere d By: Charity Michele on 11-06-2024 RBC (Bld) [#/Vol] 4.40 10*6/uL Low 4.6-6.2 [facility] Serum creatinine measurement (mass/volume)Ordered By: Izaaih Oliveros on 11-06-2024 Creatinine [Mass/Vol] 0.79 mg/dL 0.70-1.20 [facility] Serum glucose measurement (m ass/volume)Ordered By: Izaiah Oliveros on 11-06-2024 Glucose [Mass/Vol] 67 mg/dL Low 70-99 [facility] Serum or plasma calcium megan urement (mass/volume)Ordered By: Izaiah Oliveros on 11-06-2024 Calcium [Mass/Vol] 8.5 mg/dL 7.6-11.0 [facility] Serum or plasma urea nitroge n measurement (mass/volume)Ordered By: Izaiah Oliveros on 11-06-2024 Urea nitrogen [Mass/Vol] 7 mg/dL 4-19 [facility] Serum phosphorus measurement Ordered By: Izaiah Oliveros on 11-06-2024 Phosphorus Level 2.4 mg/dL Low 2.7-4.5 [facility] Sodium levelOrdered By: Byron Oliveros on 11-06-2024 Sodium [Moles/Vol] 141 mmol/L 133-145 [facility] Total carbon dioxide measure mentOrdered By: Charity Michele on 11-06-2024 Blood Gas Total CO2 26 mmol/L [facility] White blood cell (WBC) count Ordered By: Charity Michele on 11-06-2024 WBC (Bld) [#/Vol] 5.1 10*3/uL 4.4-11.0 [facility] pH (Unsp spec)Ordered By: Terence Michele on 11-06-2024 Blood Gas pH 7.37 7.35-7.45 [facility] Absolute neutrophil countOrd ered By: Izaiah Oliveros on 11-05-2024 Neutrophils (Bld) [#/Vol] 9.5 10*3/uL High 2.0-7.7 [facility] Alcohol, Blood (Medical)-Ser umon 11-05-2024 SERUM ETOH < 10.1 Normal <=10.0 [facility] Comment on above: Result Comment: This test is for medical purposes only. The legaldefinition of intoxication varies according to local law. Performed By: #### L 505.5000, L501.9100, L501.9985 ####[facility] [address] [place], [address] Automated lymphocyte count a s percentage of total leukocytesOrdered By: Izaiah Oliveros on 11-05-2024 Lymphocytes/100 WBC (Bld) 11.3 % Low 19-41 [facility] Comment on above: Performed By: #### L 100.0100, L500.2500, L501.2300 ####[facility] [address] [place], [address] Base excess Calc (BldV) [Mol es/Vol]Ordered By: Charity Michele on 11-05-2024 Venous Blood Base Excess -10 mmol/L Low -1.0-3.5 [facility] Basic Metabolic Profile (BMP )on 11-05-2024 BUN Normal 4-19 [facility] Comment on above: Order Comment: Call MD with results STAT Result Comment: Canc elled via OM: MD Ordered Performed By: #### L 500.2500 ####[facility] [address] [place], [address] BUN/CRE Normal 10-20 [facility] Comment on above: Order Comment: Call MD with results STAT Result Comment: Canc elled via OM: MD Ordered Performed By: #### L 500.2500 ####[facility] [address] [place], [address] Calcium Normal 7.6-11.0 [facility] Comment on above: Order Comment: Call MD with results STAT Result Comment: Canc elled via OM: MD Ordered Performed By: #### L 500.2500 ####[facility] [address] [place], [address] CL Normal 98-108 [facility] Comment on above: Order Comment: Call MD with results STAT Result Comment: Canc elled via OM: MD Ordered Performed By: #### L 500.2500 ####[facility] [address] [place], [address] CO2 Normal 21.0-32.0 [facility] Comment on above: Order Comment: Call MD with results STAT Result Comment: Canc elled via OM: MD Ordered Performed By: #### L 500.2500 ####[facility] [address] [place], [address] CREAT,SERUM Normal 0.70-1.20 [facility] Comment on above: Order Comment: Call MD with results STAT Result Comment: Canc elled via OM: MD Ordered Performed By: #### L 500.2500 ####[facility] [address] [place], [address] eGFR Normal >60 [facility] Comment on above: Order Comment: Call MD with results STAT Result Comment: Canc elled via OM: MD Ordered Performed By: #### L 500.2500 ####[facility] [address] [place], [address] GAP Normal 5-15 [facility] Comment on above: Order Comment: Call MD with results STAT Result Comment: Canc elled via OM: MD Ordered Performed By: #### L 500.2500 ####[facility] [address] [place], [address] GLU Normal 70-99 [facility] Comment on above: Order Comment: Call MD with results STAT Result Comment: Canc elled via OM: MD Ordered Performed By: #### L 500.2500 ####[facility] [address] [place], [address] Potassium Normal 3.3-5.1 [facility] Comment on above: Order Comment: Call MD with results STAT Result Comment: Canc elled via OM: MD Ordered Performed By: #### L 500.2500 ####[facility] [address] [place], [address] Basic Metabolic Profile (BMP) Normal 133-145 [facility] Comment on above: Order Comment: Call MD with results STAT Result Comment: Canc elled via OM: MD Ordered Performed By: #### L 500.2500 ####[facility] [address] [place], [address] BUN Normal 4-19 [facility] Comment on above: Order Comment: Call MD with results STAT Result Comment: Canc elled via OM: MD Ordered Performed By: #### L 500.2500 ####[facility] [address] [place], [address] BUN/CRE Normal 10-20 [facility] Comment on above: Order Comment: Call MD with results STAT Result Comment: Canc elled via OM: MD Ordered Performed By: #### L 500.2500 ####[facility] [address] [place], [address] Calcium Normal 7.6-11.0 [facility] Comment on above: Order Comment: Call MD with results STAT Result Comment: Canc elled via OM: MD Ordered Performed By: #### L 500.2500 ####[facility] [address] [place], [address] CL Normal 98-108 [facility] Comment on above: Order Comment: Call MD with results STAT Result Comment: Canc elled via OM: MD Ordered Performed By: #### L 500.2500 ####[facility] [address] [place], [address] CO2 Normal 21.0-32.0 [facility] Comment on above: Order Comment: Call MD with results STAT Result Comment: Canc elled via OM: MD Ordered Performed By: #### L 500.2500 ####[facility] [address] [place], [address] CREAT,SERUM Normal 0.70-1.20 [facility] Comment on above: Order Comment: Call MD with results STAT Result Comment: Canc elled via OM: MD Ordered Performed By: #### L 500.2500 ####[facility] [address] [place], [address] eGFR Normal >60 [facility] Comment on above: Order Comment: Call MD with results STAT Result Comment: Canc elled via OM: MD Ordered Performed By: #### L 500.2500 ####[facility] [address] [place], [address] GAP Normal 5-15 [facility] Comment on above: Order Comment: Call MD with results STAT Result Comment: Canc elled via OM: MD Ordered Performed By: #### L 500.2500 ####[facility] [address] [place], [address] GLU Normal 70-99 [facility] Comment on above: Order Comment: Call MD with results STAT Result Comment: Canc elled via OM: MD Ordered Performed By: #### L 500.2500 ####[facility] [address] [place], [address] Potassium Normal 3.3-5.1 [facility] Comment on above: Order Comment: Call MD with results STAT Result Comment: Canc elled via OM: MD Ordered Performed By: #### L 500.2500 ####[facility] [address] [place], [address] Basic Metabolic Profile (BMP) Normal 133-145 [facility] Comment on above: Order Comment: Call MD with results STAT Result Comment: Canc elled via OM: MD Ordered Performed By: #### L 500.2500 ####[facility] [address] [place], [address] BUN/CRE 9.4 RATIO Low 10-20 [facility] Comment on above: Order Comment: Call MD with results STAT Performed By: #### L 500.2500 ####[facility] [address] [place], [address] Calcium [Mass/Vol] 8.5 mg/dL Normal 7.6-11.0 [facility] Comment on above: Order Comment: Call MD with results STAT Performed By: #### L 500.2500 ####[facility] [address] [place], [address] Chloride [Moles/Vol] 113 mmol/L High 98-108 [facility] Comment on above: Order Comment: Call MD with results STAT Performed By: #### L 500.2500 ####[facility] [address] [place], [address] CO2 [Moles/Vol] 19.8 mmol/L Low 21.0-32.0 [facility] Comment on above: Order Comment: Call MD with results STAT Performed By: #### L 500.2500 ####[facility] [address] [place], [address] Creatinine [Mass/Vol] 0.99 mg/dL Normal 0.70-1.20 [facility] Comment on above: Order Comment: Call MD with results STAT Performed By: #### L 500.2500 ####[facility] [address] [place], [address] ECRCL 120.84 ml/min Normal 50-250 [facility] Comment on above: Order Comment: Call MD with results STAT Performed By: #### L 500.2500 ####[facility] [address] [place], [address] GAP 10 Normal 5-15 [facility] Comment on above: Order Comment: Call MD with results STAT Performed By: #### L 500.2500 ####[facility] [address] [place], [address] GFR/1.73 sq M.predicted among non-blacks MDRD (S/P/Bld) [Vol rate/Area] 106 mL/min/{1.73_m2} Normal >60 [facility] Comment on above: Order Comment: Call MD with results STAT Result Comment: mL/m in/1.73m2 CKD-EPI Creatinine Equation (2020) Performed By: #### L 500.2500 ####[facility] [address] [place], [address] Glucose [Mass/Vol] 97 mg/dL Normal 70-99 [facility] Comment on above: Order Comment: Call MD with results STAT Performed By: #### L 500.2500 ####[facility] [address] [place], [address] Potassium [Moles/Vol] 3.6 mmol/L Normal 3.3-5.1 [facility] Comment on above: Order Comment: Call MD with results STAT Performed By: #### L 500.2500 ####[facility] [address] [place], [address] Sodium [Moles/Vol] 143 mmol/L Normal 133-145 [facility] Comment on above: Order Comment: Call MD with results STAT Performed By: #### L 500.2500 ####[facility] [address] [place], [address] Urea nitrogen [Mass/Vol] 9 mg/dL Normal 4-19 [facility] Comment on above: Order Comment: Call MD with results STAT Performed By: #### L 500.2500 ####[facility] [address] [place], [address] BUN/CRE 10.1 RATIO Normal 10-20 [facility] Comment on above: Order Comment: Call MD with results STAT Performed By: #### L 500.2500 ####[facility] [address] [place], [address] Calcium [Mass/Vol] 8.3 mg/dL Normal 7.6-11.0 [facility] Comment on above: Order Comment: Call MD with results STAT Performed By: #### L 500.2500 ####[facility] [address] [place], [address] Chloride [Moles/Vol] 113 mmol/L High 98-108 [facility] Comment on above: Order Comment: Call MD with results STAT Performed By: #### L 500.2500 ####[facility] [address] [place], [address] CO2 [Moles/Vol] 17.5 mmol/L Low 21.0-32.0 [facility] Comment on above: Order Comment: Call MD with results STAT Performed By: #### L 500.2500 ####[facility] [address] [place], [address] Creatinine [Mass/Vol] 1.07 mg/dL Normal 0.70-1.20 [facility] Comment on above: Order Comment: Call MD with results STAT Performed By: #### L 500.2500 ####[facility] [address] [place], [address] ECRCL 111.81 ml/min Normal 50-250 [facility] Comment on above: Order Comment: Call MD with results STAT Performed By: #### L 500.2500 ####[facility] [address] [place], [address] GAP 12 Normal 5-15 [facility] Comment on above: Order Comment: Call MD with results STAT Performed By: #### L 500.2500 ####[facility] [address] [place], [address] GFR/1.73 sq M.predicted among non-blacks MDRD (S/P/Bld) [Vol rate/Area] 96 mL/min/{1.73_m2} Normal >60 [facility] Comment on above: Order Comment: Call MD with results STAT Result Comment: mL/m in/1.73m2 CKD-EPI Creatinine Equation (2020) Performed By: #### L 500.2500 ####[facility] [address] [place], [address] Glucose [Mass/Vol] 92 mg/dL Normal 70-99 [facility] Comment on above: Order Comment: Call MD with results STAT Performed By: #### L 500.2500 ####[facility] [address] [place], [address] Potassium [Moles/Vol] 3.8 mmol/L Normal 3.3-5.1 [facility] Comment on above: Order Comment: Call MD with results STAT Performed By: #### L 500.2500 ####[facility] [address] [place], [address] Sodium [Moles/Vol] 142 mmol/L Normal 133-145 [facility] Comment on above: Order Comment: Call MD with results STAT Performed By: #### L 500.2500 ####[facility] [address] [place], [address] Urea nitrogen [Mass/Vol] 11 mg/dL Normal 4-19 [facility] Comment on above: Order Comment: Call MD with results STAT Performed By: #### L 500.2500 ####[facility] [address] [place], [address] BUN/CRE 10.7 RATIO Normal 10-20 [facility] Comment on above: Order Comment: Call MD with results STAT Performed By: #### L 100.0100, L500.2500, L501.2300 ####[facility] [address] [place], [address] Calcium [Mass/Vol] 8.2 mg/dL Normal 7.6-11.0 [facility] Comment on above: Order Comment: Call MD with results STAT Performed By: #### L 100.0100, L500.2500, L501.2300 ####[facility] [address] [place], [address] Chloride [Moles/Vol] 112 mmol/L High 98-108 [facility] Comment on above: Order Comment: Call MD with results STAT Performed By: #### L 100.0100, L500.2500, L501.2300 ####[facility] [address] [place], [address] CO2 [Moles/Vol] 14.7 mmol/L Low 21.0-32.0 [facility] Comment on above: Order Comment: Call MD with results STAT Performed By: #### L 100.0100, L500.2500, L501.2300 ####[facility] [address] [place], [address] Creatinine [Mass/Vol] 1.15 mg/dL Normal 0.70-1.20 [facility] Comment on above: Order Comment: Call MD with results STAT Performed By: #### L 100.0100, L500.2500, L501.2300 ####[facility] [address] [place], [address] ECRCL 104.03 ml/min Normal 50-250 [facility] Comment on above: Order Comment: Call MD with results STAT Performed By: #### L 100.0100, L500.2500, L501.2300 ####[facility] [address] [place], [address] GAP 16 High 5-15 [facility] Comment on above: Order Comment: Call MD with results STAT Performed By: #### L 100.0100, L500.2500, L501.2300 ####[facility] [address] [place], [address] GFR/1.73 sq M.predicted among non-blacks MDRD (S/P/Bld) [Vol rate/Area] 88 mL/min/{1.73_m2} Normal >60 [facility] Comment on above: Order Comment: Call MD with results STAT Result Comment: mL/m in/1.73m2 CKD-EPI Creatinine Equation (2020) Performed By: #### L 100.0100, L500.2500, L501.2300 ####[facility] [address] [place], [address] Glucose [Mass/Vol] 130 mg/dL High 70-99 [facility] Comment on above: Order Comment: Call MD with results STAT Performed By: #### L 100.0100, L500.2500, L501.2300 ####[facility] [address] [place], [address] Potassium [Moles/Vol] 4.1 mmol/L Normal 3.3-5.1 [facility] Comment on above: Order Comment: Call MD with results STAT Performed By: #### L 100.0100, L500.2500, L501.2300 ####[facility] [address] [place], [address] Sodium [Moles/Vol] 143 mmol/L Normal 133-145 [facility] Comment on above: Order Comment: Call MD with results STAT Performed By: #### L 100.0100, L500.2500, L501.2300 ####[facility] [address] [place], [address] Urea nitrogen [Mass/Vol] 12 mg/dL Normal 4-19 [facility] Comment on above: Order Comment: Call MD with results STAT Performed By: #### L 100.0100, L500.2500, L501.2300 ####[facility] [address] [place], [address] BUN/CRE 12.3 RATIO Normal 10-20 [facility] Comment on above: Order Comment: Call MD with results STAT Performed By: #### L 500.2500 ####[facility] [address] [place], [address] Calcium [Mass/Vol] 8.0 mg/dL Normal 7.6-11.0 [facility] Comment on above: Order Comment: Call MD with results STAT Performed By: #### L 500.2500 ####[facility] [address] [place], [address] Chloride [Moles/Vol] 111 mmol/L High 98-108 [facility] Comment on above: Order Comment: Call MD with results STAT Performed By: #### L 500.2500 ####[facility] [address] [place], [address] CO2 [Moles/Vol] 10.9 mmol/L Low 21.0-32.0 [facility] Comment on above: Order Comment: Call MD with results STAT Performed By: #### L 500.2500 ####[facility] [address] [place], [address] Creatinine [Mass/Vol] 1.13 mg/dL Normal 0.70-1.20 [facility] Comment on above: Order Comment: Call MD with results STAT Performed By: #### L 500.2500 ####[facility] [address] [place], [address] ECRCL 105.87 ml/min Normal 50-250 [facility] Comment on above: Order Comment: Call MD with results STAT Performed By: #### L 500.2500 ####[facility] [address] [place], [address] GAP 20 High 5-15 [facility] Comment on above: Order Comment: Call MD with results STAT Performed By: #### L 500.2500 ####[facility] [address] [place], [address] GFR/1.73 sq M.predicted among non-blacks MDRD (S/P/Bld) [Vol rate/Area] 90 mL/min/{1.73_m2} Normal >60 [facility] Comment on above: Order Comment: Call MD with results STAT Result Comment: mL/m in/1.73m2 CKD-EPI Creatinine Equation (2020) Performed By: #### L 500.2500 ####[facility] [address] [place], [address] Glucose [Mass/Vol] 156 mg/dL High 70-99 [facility] Comment on above: Order Comment: Call MD with results STAT Performed By: #### L 500.2500 ####[facility] [address] [place], [address] Potassium [Moles/Vol] 4.4 mmol/L Normal 3.3-5.1 [facility] Comment on above: Order Comment: Call MD with results STAT Performed By: #### L 500.2500 ####[facility] [address] [place], [address] Sodium [Moles/Vol] 142 mmol/L Normal 133-145 [facility] Comment on above: Order Comment: Call MD with results STAT Performed By: #### L 500.2500 ####[facility] [address] [place], [address] Urea nitrogen [Mass/Vol] 14 mg/dL Normal 4-19 [facility] Comment on above: Order Comment: Call MD with results STAT Performed By: #### L 500.2500 ####[facility] [address] [place], [address] BUN/CRE 13.2 RATIO Normal 10-20 [facility] Comment on above: Order Comment: Call MD with results STAT Performed By: #### L 506.0200, L501.5200, L500.2500, L501.9520, L503.0106 ####[facility] [address] [place], [address] Calcium [Mass/Vol] 8.2 mg/dL Normal 7.6-11.0 [facility] Comment on above: Order Comment: Call MD with results STAT Performed By: #### L 506.0200, L501.5200, L500.2500, L501.9520, L503.0106 ####[facility] [address] [place], [address] Chloride [Moles/Vol] 106 mmol/L Normal 98-108 [facility] Comment on above: Order Comment: Call MD with results STAT Performed By: #### L 506.0200, L501.5200, L500.2500, L501.9520, L503.0106 ####[facility] [address] [place], [address] CO2 [Moles/Vol] 5.2 mmol/L Invalid Interpretation Code 21.0-32.0 [facility] Comment on above: Order Comment: Call MD with results STAT Result Comment: Crit ical Result(s) Called at 0153: by: LISA CARRIZALES??Results read back by same. Performed By: #### L 506.0200, L501.5200, L500.2500, L501.9520, L503.0106 ####[facility] [address] [place], [address] Creatinine [Mass/Vol] 1.26 mg/dL High 0.70-1.20 [facility] Comment on above: Order Comment: Call MD with results STAT Performed By: #### L 506.0200, L501.5200, L500.2500, L501.9520, L503.0106 ####[facility] [address] [place], [address] ECRCL 94.95 ml/min Normal 50-250 [facility] Comment on above: Order Comment: Call MD with results STAT Performed By: #### L 506.0200, L501.5200, L500.2500, L501.9520, L503.0106 ####[facility] [address] [place], [address] GAP 29 High 5-15 [facility] Comment on above: Order Comment: Call MD with results STAT Performed By: #### L 506.0200, L501.5200, L500.2500, L501.9520, L503.0106 ####[facility] [address] [place], [address] GFR/1.73 sq M.predicted among non-blacks MDRD (S/P/Bld) [Vol rate/Area] 79 mL/min/{1.73_m2} Normal >60 [facility] Comment on above: Order Comment: Call MD with results STAT Result Comment: mL/m in/1.73m2 CKD-EPI Creatinine Equation (2020) Performed By: #### L 506.0200, L501.5200, L500.2500, L501.9520, L503.0106 ####[facility] [address] [place], [address] Glucose [Mass/Vol] 338 mg/dL High 70-99 [facility] Comment on above: Order Comment: Call MD with results STAT Performed By: #### L 506.0200, L501.5200, L500.2500, L501.9520, L503.0106 ####[facility] [address] [place], [address] Potassium [Moles/Vol] 4.4 mmol/L Normal 3.3-5.1 [facility] Comment on above: Order Comment: Call MD with results STAT Performed By: #### L 506.0200, L501.5200, L500.2500, L501.9520, L503.0106 ####[facility] [address] [place], [address] Sodium [Moles/Vol] 140 mmol/L Normal 133-145 [facility] Comment on above: Order Comment: Call MD with results STAT Performed By: #### L 506.0200, L501.5200, L500.2500, L501.9520, L503.0106 ####[facility] [address] [place], [address] Urea nitrogen [Mass/Vol] 17 mg/dL Normal 4-19 [facility] Comment on above: Order Comment: Call MD with results STAT Performed By: #### L 506.0200, L501.5200, L500.2500, L501.9520, L503.0106 ####[facility] [address] [place], [address] Basophil percentageOrdered B y: Izaiah Oliveros on 11-05-2024 Basophils/100 WBC (Bld) 0.4 % Normal 0-1 [facility] Comment on above: Performed By: #### L 100.0100, L500.2500, L501.2300 ####[facility] [address] [place], [address] Bedside Glucoseon 11-05-2024 FINGERSTICK GLU 295 mg/dL High 74-106 [facility] Comment on above: Result Comment: ETHEL GEMENT OF PATIENT CARE PER NURSING PROTOCOL Performed By: #### L 501.080 ####[facility] [address] [place], [address] FINGERSTICK GLU 79 mg/dL Normal 74-106 [facility] Comment on above: Result Comment: ETHEL GEMENT OF PATIENT CARE PER NURSING PROTOCOL Performed By: #### L 501.080 ####[facility] [address] [place], [address] FINGERSTICK GLU 90 mg/dL Normal 74-106 [facility] Comment on above: Result Comment: ETHEL GEMENT OF PATIENT CARE PER NURSING PROTOCOL Performed By: #### L 501.080 ####[facility] [address] [place], [address] FINGERSTICK GLU 96 mg/dL Normal 74-106 [facility] Comment on above: Result Comment: EHTEL GEMENT OF PATIENT CARE PER NURSING PROTOCOL Performed By: #### L 501.080 ####[facility] [address] [place], [address] FINGERSTICK GLU 90 mg/dL Normal 74-106 [facility] Comment on above: Result Comment: ETHEL GEMENT OF PATIENT CARE PER NURSING PROTOCOL Performed By: #### L 501.080 ####[facility] [address] [place], [address] FINGERSTICK GLU 89 mg/dL Normal 74-106 [facility] Comment on above: Result Comment: ETHEL GEMENT OF PATIENT CARE PER NURSING PROTOCOL Performed By: #### L 501.080 ####[facility] [address] [place], [address] FINGERSTICK GLU 87 mg/dL Normal 74-106 [facility] Comment on above: Result Comment: ETHEL GEMENT OF PATIENT CARE PER NURSING PROTOCOL Performed By: #### L 501.080 ####[facility] [address] [place], [address] FINGERSTICK GLU 94 mg/dL Normal 74-106 [facility] Comment on above: Result Comment: ETHEL GEMENT OF PATIENT CARE PER NURSING PROTOCOL Performed By: #### L 501.080 ####[facility] [address] [place], [address] FINGERSTICK GLU 126 mg/dL High 74-106 [facility] Comment on above: Result Comment: ETHEL GEMENT OF PATIENT CARE PER NURSING PROTOCOL Performed By: #### L 501.080 ####[facility] [address] [place], [address] FINGERSTICK GLU 101 mg/dL Normal 74-106 [facility] Comment on above: Result Comment: ETHEL GEMENT OF PATIENT CARE PER NURSING PROTOCOL Performed By: #### L 501.080 ####[facility] [address] [place], [address] FINGERSTICK GLU 97 mg/dL Normal 74-106 [facility] Comment on above: Result Comment: ETHEL GEMENT OF PATIENT CARE PER NURSING PROTOCOL Performed By: #### L 501.080 ####[facility] [address] [place], [address] FINGERSTICK GLU 149 mg/dL High 74-106 [facility] Comment on above: Result Comment: ETHEL GEMENT OF PATIENT CARE PER NURSING PROTOCOL Performed By: #### L 501.080 ####[facility] [address] [place], [address] FINGERSTICK GLU 137 mg/dL High 74-106 [facility] Comment on above: Result Comment: ETHEL GEMENT OF PATIENT CARE PER NURSING PROTOCOL Performed By: #### L 501.080 ####[facility] [address] [place], [address] FINGERSTICK GLU 174 mg/dL High -106 [facility] Comment on above: Result Comment: ETHEL GEMENT OF PATIENT CARE PER NURSING PROTOCOL Performed By: #### L 501.080 ####[facility] [address] [place], [address] FINGERSTICK GLU 227 mg/dL High 74-106 [facility] Comment on above: Result Comment: ETHEL GEMENT OF PATIENT CARE PER NURSING PROTOCOL Performed By: #### L 501.080 ####[facility] [address] [place], [address] FINGERSTICK GLU 370 mg/dL High -106 [facility] Comment on above: Result Comment: ETHEL GEMENT OF PATIENT CARE PER NURSING PROTOCOL Performed By: #### L 501.080 ####[facility] [address] [place], [address] Blood Gases by [facility] 025 ANNE TEST Positive Normal [facility] Comment on above: Performed By: #### L 9000.0800 ####[facility] [address] [place], [address] Base excess Calc (Bld) [Moles/Vol] -24 mmol/L Low -2 to +2 [facility] Comment on above: Performed By: #### L 9000.0800 ####[facility] [address] [place], [address] Blood Gas Type ART [facility] Comment on above: Performed By: #### L 9000.0800 ####[facility] [address] [place], [address] FI02 21.0 [facility] Comment on above: Performed By: #### L 9000.0800 ####[facility] [address] [place], [address] HCO3 (Bld) [Moles/Vol] 4.4 mmol/L Low 22-26 [facility] Comment on above: Performed By: #### L 9000.0800 ####[facility] [address] [place], [address] Mode Not entered Normal [facility] Comment on above: Performed By: #### L 9000.0800 ####[facility] [address] [place], [address] O2 Delivery Dev Room Air [facility] Comment on above: Performed By: #### L 9000.0800 ####[facility] [address] [place], [address] pCO2 12.4 mmHg Invalid Interpretation Code 35-45 [facility] Comment on above: Performed By: #### L 9000.0800 ####[facility] [address] [place], [address] pH (Bld) 7.16 [pH] Invalid Interpretation Code 7.35-7.45 [facility] Comment on above: Performed By: #### L 9000.0800 ####[facility] [address] [place], [address] PO2 131 mmHG High 75-100 [facility] Comment on above: Performed By: #### L 0.0800 ####[facility] [address] [place], [address] Read Back By Yes Normal [facility] Comment on above: Performed By: #### L 0.0800 ####[facility] [address] [place], [address] cerda Normal [facility] Comment on above: Performed By: #### L 0.0800 ####[facility] [address] [place], [address] SITE R Radial Normal [facility] Comment on above: Performed By: #### L 0.0800 ####[facility] [address] [place], [address] SO2 98 Normal 95-99 [facility] Comment on above: Performed By: #### L 0.0800 ####[facility] [address] [place], [address] Time Given 00:44:57 [facility] Comment on above: Performed By: #### L 0.0800 ####[facility] [address] [place], [address] TOTAL CO2 < 5 Normal [facility] Comment on above: Performed By: #### L 8999.0800 ####[facility] [address] [place], [address] CBC W/Diff, Automatedon - Absolute Lymph 1.36 X10 3/uL Normal 0.83-4.51 [facility] Comment on above: Performed By: #### L 100.0100, L500.2500, L501.2300 ####[facility] [address] [place], [address] Absolute Neut 9.5 X10 3/uL High 2.0-7.7 [facility] Comment on above: Performed By: #### L 100.0100, L500.2500, L501.2300 ####[facility] [address] [place], [address] Erythrocyte distribution width (RBC) [Ratio] 12.7 % Normal 11.6-14.6 [facility] Comment on above: Performed By: #### L 100.0100, L500.2500, L501.2300 ####[facility] [address] [place], [address] Hematocrit (Bld) [Volume fraction] 38.5 % Low 40-54 [facility] Comment on above: Performed By: #### L 100.0100, L500.2500, L501.2300 ####[facility] [address] [place], [address] Hemoglobin (Bld) [Mass/Vol] 13.5 g/dL Normal 13.0-16. 5 [facility] Comment on above: Performed By: #### L 100.0100, L500.2500, L501.2300 ####[facility] [address] [place], [address] IG% 0.600 Normal 0.0-0.9 [facility] Comment on above: Result Comment: IG% - Immature Granulocytes (promyelocytes, myelocytes andmetamyelocytes) > 1% indicates that a LEFT SHIFT is Present. Performed By: #### L 100.0100, L500.2500, L501.2300 ####[facility] [address] [place], [address] MCH (RBC) [Entitic mass] 30.4 pg Normal 27.0-32.0 [facility] Comment on above: Performed By: #### L 100.0100, L500.2500, L501.2300 ####[facility] [address] [place], [address] MCHC (RBC) [Mass/Vol] 35.1 g/dL Normal 32-36 [facility] Comment on above: Performed By: #### L 100.0100, L500.2500, L501.2300 ####[facility] [address] [place], [address] MCV (RBC) [Entitic vol] 86.7 fL Normal 80-94 [facility] Comment on above: Performed By: #### L 100.0100, L500.2500, L501.2300 ####[facility] [address] [place], [address] Nucleated RBC (Bld) [#/Vol] 0 10*3/uL Normal 0-5 [facility] Comment on above: Performed By: #### L 100.0100, L500.2500, L501.2300 ####[facility] [address] [place], [address] Platelet mean volume (Bld) [Entitic vol] 8.7 fL Normal 6.2-12.0 [facility] Comment on above: Performed By: #### L 100.0100, L500.2500, L501.2300 ####[facility] [address] [place], [address] Platelets (Bld) [#/Vol] 286 10*3/uL Normal 150-450 [facility] Comment on above: Performed By: #### L 100.0100, L500.2500, L501.2300 ####[facility] [address] [place], [address] RBC (Bld) [#/Vol] 4.44 10*6/uL Low 4.6-6.2 [facility] Comment on above: Performed By: #### L 100.0100, L500.2500, L501.2300 ####[facility] [address] [place], [address] RDW SD 39.8 fl Normal 35.1-43.9 [facility] Comment on above: Performed By: #### L 100.0100, L500.2500, L501.2300 ####[facility] [address] [place], [address] WBC (Bld) [#/Vol] 12.1 10*3/uL High 4.4-11.0 [facility] Comment on above: Performed By: #### L 100.0100, L500.2500, L501.2300 ####[facility] [address] [place], [address] CO2 (BldV) [Moles/Vol]Ordere d By: Charity Michele on 11-05-2024 CO2 [Moles/Vol] 18 mmol/L Low 23-33 [facility] CO2 (BldV) [Partial pressure ]Ordered By: Charity Michele on 11-05-2024 Bed Mix Venous Bld PCO2 at Pat Temp 34.3 mmHg Low 41-51 [facility] Determination of fraction of inspired oxygenOrdered By: Izaiah Oliveros on 11-05-2024 Blood Gas Oxygen Percent 21.0 [facility] Eosinophil percentageOrdered By: Izaiah Oliveros on 11-05-2024 Eosinophils/100 WBC (Bld) 0.1 % Normal 0-5 [facility] Comment on above: Performed By: #### L 100.0100, L500.2500, L501.2300 ####[facility] [address] [place], [address] Ethanol [Mass/Vol]Ordered By : Izaiah Oliveros on 11-05-2024 Ethyl Alcohol Level < 10.1 mg/dL <10.1 [facility] Comment on above: This test is for med ical purposes only. The legal definition of intoxication varies according to local law. FOLATES,SERUM (FOLIC ACID)on 11-05-2024 FOLATES,SERUM 9.76 ng/mL Normal 4.60-34.80 [facility] Comment on above: Result Comment: Hemo lysis, Results will be affected, Requires Recollection. Performed By: #### L 506.0200, L501.5200, L500.2500, L501.9520, L503.0106 ####[facility] [address] [place], [address] Folate [Mass/Vol]Ordered By: Izaiah Oliveros on 11-05-2024 Serum Folate 9.76 ng/mL 4.60-34.80 [facility] Comment on above: Hemolysis, Results w ill be affected, Requires Recollection. Hemoglobin A1con 11-05-2024 HbA1c (Bld) [Mass fraction] 12.5 % Normal <=5.6 [facility] Comment on above: Performed By: #### L 505.5000, L501.9100, L501.9985 ####[facility] [address] [place], [address] Hemoglobin A1c percentageOrd ered By: Izaiah Oliveros on 11-05-2024 HbA1c (Bld) [Mass fraction] 12.5 % >5.7 [facility] Immature granulocytes/100 WB C Auto (Bld)Ordered By: Izaiah Oliveros on 11-05-2024 Immature granulocytes/100 WBC (Bld) 0.600 % 0.0-0.9 [facility] Comment on above: IG% - Immature Granu locytes (promyelocytes, myelocytes and metamyelocytes) > 1% indicates that a LEFT SHIFT is Present. L501.6901on 11-05-2024 BETA-HYDROXYBUT 2.4 mmol/L Normal 0.0-0.3 [facility] Comment on above: Performed By: #### L 501.6901 ####[facility] [address] [place], [address] L503.0106on 11-05-2024 Cobalamin (Vitamin B12) [Mass/Vol] 1315 pg/mL High 180-914 [facility] Comment on above: Performed By: #### L 506.0200, L501.5200, L500.2500, L501.9520, L503.0106 ####[facility] [address] [place], [address] Lymphocytes Auto (Unsp spec) [#/Vol]Ordered By: Izaiah Oliveros on 11-05-2024 Lymphocytes (Bld) [#/Vol] 1.36 10*3/uL 0.83-4.5 1 [facility] Magnesiumon 11-05-2024 Magnesium [Mass/Vol] 2.1 mg/dL Normal 1.5-2.2 [facility] Comment on above: Performed By: #### L 506.0200, L501.5200, L500.2500, L501.9520, L503.0106 ####[facility] [address] [place], [address] Magnesium (Unsp spec) [Mass/ Vol]Ordered By: Izaiah Oliveros on 11-05-2024 Magnesium [Mass/Vol] 2.1 mg/dL 1.5-2.2 [facility] Monocyte percentageOrdered B y: Izaiah Oliveros on 11-05-2024 Monocytes/100 WBC (Bld) 8.8 % Normal 0-10 [facility] Comment on above: Performed By: #### L 100.0100, L500.2500, L501.2300 ####[facility] [address] [place], [address] Neutrophil percentageOrdered By: Izaiah Oliveros on 11-05-2024 Neutrophils/100 WBC (Bld) 78.8 % High 47-70 [facility] Comment on above: Performed By: #### L 100.0100, L500.2500, L501.2300 ####[facility] [address] [place], [address] No Panel InformationOrdered By: Izaiah Oliveros on 11-05-2024 Bld Gas Crit Called To/Read Back By Yes [facility] Blood Gas Notified Time 00:44:57 [facility] Blood Gas Notified Whom dr. cerda [facility] Nucleated red blood cell per centageOrdered By: Izaiah Oliveros on 11-05-2024 Nucleated RBC/100 WBC (Bld) [Ratio] 0 % 0-5 [facility] Oxygen (BldV) [Partial press ure]Ordered By: Charity Michele on 11-05-2024 Venous Blood Partial Pressure O2 38 mmHg 25-40 [facility] Phosphoruson 11-05-2024 Phosphate [Mass/Vol] 2.7 mg/dL Normal 2.7-4.5 [facility] Comment on above: Performed By: #### L 100.0100, L500.2500, L501.2300 ####[facility] [address] [place], [address] TSH DL <= 0.005 mIU/L QnOrde red By: Izaiah Oliveros on 11-05-2024 Thyroid Stimulating Hormone (TSH) 0.231 uIU/mL Low 0.300-4.200 [facility] Thyroid Stim Hormone (TSH)on 11-05-2024 TSH 0.231 uIU/mL Low 0.300-4.200 [facility] Comment on above: Performed By: #### L 506.0200, L501.5200, L500.2500, L501.9520, L503.0106 ####[facility] [address] [place], [address] Urine Drug Screen (VISTA)on 11-05-2024 AMPHETAMINES Negative Normal <1000 ng/mL [facility] Comment on above: Performed By: #### L 505.5000, L501.9100, L501.9985 ####[facility] [address] [place], [address] BARBITIURATES Negative Normal < 200 ng/mL [facility] Comment on above: Performed By: #### L 505.5000, L501.9100, L501.9985 ####[facility] [address] [place], [address] BENZODIAZIPINE Negative Normal < 200 ng/mL [facility] Comment on above: Performed By: #### L 505.5000, L501.9100, L501.9985 ####[facility] [address] [place], [address] BUP Ur Drug Scr Negative Normal < 200 ng/mL [facility] Comment on above: Performed By: #### L 505.5000, L501.9100, L501.9985 ####[facility] [address] [place], [address] COCAINE Positive Normal < 300 ng/mL [facility] Comment on above: Result Comment: If c onfirmation testing is needed, a separate order will berequired to send out testing to the reference laboratory. Performed By: #### L 505.5000, L501.9100, L501.9985 ####[facility] [address] [place], [address] Fentanyl Negative Normal [facility] Comment on above: Performed By: #### L 505.5000, L501.9100, L501.9985 ####[facility] [address] [place], [address] METHADONE Negative Normal < 300 ng/mL [facility] Comment on above: Performed By: #### L 505.5000, L501.9100, L501.9985 ####[facility] [address] [place], [address] OPIATES Negative Normal < 300 ng/mL [facility] Comment on above: Performed By: #### L 505.5000, L501.9100, L501.9985 ####[facility] [address] [place], [address] OXYCODONE Negative Normal < 100 ng/mL [facility] Comment on above: Performed By: #### L 505.5000, L501.9100, L501.9985 ####[facility] [address] [place], [address] PCP Negative Normal < 25 ng/mL [facility] Comment on above: Performed By: #### L 505.5000, L501.9100, L501.9985 ####[facility] [address] [place], [address] THC Negative Normal < 50 ng/mL [facility] Comment on above: Performed By: #### L 505.5000, L501.9100, L501.9985 ####[facility] [address] [place], [address] Venous Blood Gason 5 Blood Gas Type CHET Normal [facility] Comment on above: Performed By: #### L 9000.0810 ####[facility] [address] [place], [address] CO2 [Moles/Vol] 18 mmol/L Low 23-33 [facility] Comment on above: Performed By: #### L 9000.0810 ####[facility] [address] [place], [address] HCO3 (Bld) [Moles/Vol] 17 mmol/L Low 22-26 [facility] Comment on above: Performed By: #### L 9000.0810 ####[facility] [address] [place], [address] O2 Delivery Dev Room Air Normal [facility] Comment on above: Performed By: #### L 9000.0810 ####[facility] [address] [place], [address] SITE Not entered [facility] Comment on above: Performed By: #### L 9000.0810 ####[facility] [address] [place], [address] VBG BE -10 mmol/L Low -1.0-3.5 [facility] Comment on above: Performed By: #### L 9000.0810 ####[facility] [address] [place], [address] VBG pCO2 34.3 mmHg Low 41-51 [facility] Comment on above: Performed By: #### L 9000.0810 ####[facility] [address] [place], [address] VBG pH 7.30 Low 7.32-7.42 [facility] Comment on above: Performed By: #### L 9000.0810 ####[facility] [address] [place], [address] VBG PO2 38 mmHg Normal 25-40 [facility] Comment on above: Performed By: #### L 9000.0810 ####[facility] [address] [place], [address] VBG SO2 66 Normal 50-70 [facility] Comment on above: Performed By: #### L 9000.0810 ####[facility] [address] [place], [address] Blood Gas Type CHET Normal [facility] Comment on above: Performed By: #### L 9000.0810 ####[facility] [address] [place], [address] CO2 [Moles/Vol] 17 mmol/L Low 23-33 [facility] Comment on above: Performed By: #### L 9000.0810 ####[facility] [address] [place], [address] HCO3 (Bld) [Moles/Vol] 16 mmol/L Low 22-26 [facility] Comment on above: Performed By: #### L 9000.0810 ####[facility] [address] [place], [address] O2 Delivery Dev Room Air Normal [facility] Comment on above: Performed By: #### L 9000.0810 ####[facility] [address] [place], [address] SITE Not entered Normal [facility] Comment on above: Performed By: #### L 9000.0810 ####[facility] [address] [place], [address] VBG BE -10 mmol/L Low -1.0-3.5 [facility] Comment on above: Performed By: #### L 9000.0810 ####[facility] [address] [place], [address] VBG pCO2 30.9 mmHg Low 41-51 [facility] Comment on above: Performed By: #### L 9000.0810 ####[facility] [address] [place], [address] VBG pH 7.32 Normal 7.32-7.42 [facility] Comment on above: Performed By: #### L 9000.0810 ####[facility] [address] [place], [address] VBG PO2 80 mmHg High 25-40 [facility] Comment on above: Performed By: #### L 9000.0810 ####[facility] [address] [place], [address] VBG SO2 95 High 50-70 [facility] Comment on above: Performed By: #### L 9000.0810 ####[facility] [address] [place], [address] Venous blood bicarbonate harshil surementOrdered By: Charity Michele on 11-05-2024 HCO3 (Bld) [Moles/Vol] 17 mmol/L Low 22-26 [facility] Venous blood oxygen saturati on measurementOrdered By: Charity Michele on 11-05-2024 Oxygen saturation in Blood 66 % 50-70 [facility] Vitamin B12 ser/plasOrdered By: Izaiah Oliveros on 11-05-2024 Cobalamin (Vitamin B12) [Mass/Vol] 1315 pg/mL High 180-914 [facility] pH (BldV)Ordered By: Charity navarrete on 11-05-2024 Venous Blood pH 7.30 Low 7.32-7.42 [facility] 12 Lead EKGon 11-04-2024 12 Lead EKG Normal [facility] Absolute neutrophil countOrd ered By: Julián Veliz on 11-04-2024 Neutrophils (Bld) [#/Vol] 8.7 10*3/uL High 2.0-7.7 [facility] Amphetamines Screen method > 1000 ng/mL Ql (U)Ordered By: Izaiah Oliveros on 11-04-2024 Amphetamines Ql (U) Negative <1000 ng/mL [facility] Urine Barbiturates Screen Negative < 200 ng/m L [facility] Anion gap in Serum or Plasma Ordered By: Julián Veliz on 11-04-2024 Anion gap [Moles/Vol] 37 mmol/L High 01-04 [facility] Arterial patency Wrist arter y --pre arterial punctureOrdered By: Julián Veliz on 11-04-2024 Anne Test Positive [facility] BUN/creatinine ratioOrdered By: Julián Veliz on 11-04-2024 Urea nitrogen/Creatinine [Mass ratio] 12.3 mg/mg 06-11 [facility] Base excess Calc (BldV) [Mol es/Vol]Ordered By: Julián Veliz on 11-04-2024 Blood Gas Base Excess -26 mmol/L Low -2-2 [facility] Basic Metabolic Profile (BMP )on 11-04-2024 BUN/CRE 12.3 RATIO Normal 06-11 [facility] Comment on above: Performed By: #### L 100.0100, L500.2500, L501.6901 ####[facility] [address] [place], [place], [address] Calcium [Mass/Vol] 9.7 mg/dL Normal 7.6-11.0 [facility] Comment on above: Performed By: #### L 100.0100, L500.2500, L501.6901 ####[facility] [address] [place], [address] Chloride [Moles/Vol] 93 mmol/L Low 98-108 [facility] Comment on above: Performed By: #### L 100.0100, L500.2500, L501.6901 ####[facility] [address] [place], [address] CO2 [Moles/Vol] 6.6 mmol/L Invalid Interpretation Code 21.0-32.0 [facility] Comment on above: Result Comment: Crit ical Result(s) Called at 11/04/2024-22:35 by Junior Veliz??Results read back by same. Performed By: #### L 100.0100, L500.2500, L501.6901 ####[facility] [address] [place], [address] Creatinine [Mass/Vol] 1.46 mg/dL High 0.70-1.20 [facility] Comment on above: Performed By: #### L 100.0100, L500.2500, L501.6901 ####[facility] [address] [place], [address] ECRCL 81.94 ml/min Normal 50-250 [facility] Comment on above: Performed By: #### L 100.0100, L500.2500, L501.6901 ####[facility] [address] [place], [address] GAP 37 High 5-15 [facility] Comment on above: Performed By: #### L 100.0100, L500.2500, L501.6901 ####[facility] [address] [place], [address] GFR/1.73 sq M.predicted among non-blacks MDRD (S/P/Bld) [Vol rate/Area] 66 mL/min/{1.73_m2} Normal >60 [facility] Comment on above: Result Comment: mL/m in/1.73m2 CKD-EPI Creatinine Equation (2020) Performed By: #### L 100.0100, L500.2500, L501.6901 ####[facility] [address] [place], [address] Glucose [Mass/Vol] 629 mg/dL Invalid Interpretation Code 70-99 [facility] Comment on above: Result Comment: Crit ical Result(s) Called at 11/04/2024-22:35 by Junior Veliz??Results read back by same. Performed By: #### L 100.0100, L500.2500, L501.6901 ####[facility] [address] [place], [address] Potassium [Moles/Vol] 5.4 mmol/L High 3.3-5.1 [facility] Comment on above: Performed By: #### L 100.0100, L500.2500, L501.6901 ####[facility] [address] [place], [address] Sodium [Moles/Vol] 136 mmol/L Normal 133-145 [facility] Comment on above: Performed By: #### L 100.0100, L500.2500, L501.6901 ####[facility] [address] [place], [address] Urea nitrogen [Mass/Vol] 18 mg/dL Normal 4-19 [facility] Comment on above: Performed By: #### L 100.0100, L500.2500, L501.6901 ####[facility] [address] [place], [address] Basophil percentageOrdered B y: Julián Veliz on 11-04-2024 Basophils/100 WBC (Bld) 1.4 % High 0-1 [facility] Bedside Glucoseon 11-04-2024 FINGERSTICK GLU > 500 Invalid Interpretation Code 74-106 [facility] Comment on above: Result Comment: ETHEL GEMENT OF PATIENT CARE PER NURSING PROTOCOL Performed By: #### L 501.080 ####[facility] [address] [place], [address] FINGERSTICK GLU > 500 Invalid Interpretation Code 74-106 [facility] Comment on above: Result Comment: Dr Blaine bella FollowedMANAGEMENT OF PATIENT CARE PER NURSING PROTOCOL Performed By: #### L 501.080 ####[facility] [address] [place], [address] FINGERSTICK GLU > 500 Invalid Interpretation Code 74-106 [facility] Comment on above: Result Comment: ETHEL GEMENT OF PATIENT CARE PER NURSING PROTOCOL Performed By: #### L 501.080 ####[facility] [address] [place], [address] Bilirubin Test strip Ql (U)O rdered By: Julián Veliz on 11-04-2024 Bilirubin Ql (U) Negative Negative [facility] Blood [facility] ANNE TEST Positive Normal [facility] Comment on above: Performed By: #### L 9000.0800 ####[facility] [address] [place], [address] Base excess Calc (Bld) [Moles/Vol] -26 mmol/L Low -2 to +2 [facility] Comment on above: Performed By: #### L 9000.0800 ####[facility] [address] [place], [address] Blood Gas Type ART Normal [facility] Comment on above: Performed By: #### L 9000.0800 ####[facility] [address] [place], [address] HCO3 (Bld) [Moles/Vol] 4.3 mmol/L Low 22-26 [facility] Comment on above: Performed By: #### L 9000.0800 ####[facility] [address] [place], [address] Mode Not entered [facility] Comment on above: Performed By: #### L 9000.0800 ####[facility] [address] [place], [address] O2 Delivery Dev Not entered Normal [facility] Comment on above: Performed By: #### L 9000.0800 ####[facility] [address] [place], [address] pCO2 15.5 mmHg Invalid Interpretation Code 35-45 [facility] Comment on above: Performed By: #### L 9000.0800 ####[facility] [address] [place], [address] pH (Bld) 7.06 [pH] Invalid Interpretation Code 7.35-7.45 [facility] Comment on above: Performed By: #### L 9000.0800 ####[facility] [address] [place], [address] PO2 126 mmHG High 75-100 [facility] Comment on above: Performed By: #### L 9000.0800 ####[facility] [address] [place], [address] Read Back By Yes Normal [facility] Comment on above: Performed By: #### L 9000.0800 ####[facility] [address] [place], [address] SITE R Radial Normal [facility] Comment on above: Performed By: #### L 9000.0800 ####[facility] [address] [place], [address] SO2 97 Normal 95-99 [facility] Comment on above: Performed By: #### L 9000.0800 ####[facility] [address] [place], [address] TOTAL CO2 < 5 Normal [facility] Comment on above: Performed By: #### L 9000.0800 ####[facility] [address] [place], [address] Blood bicarbonate measuremen tOrdered By: Julián Veliz on 11-04-2024 Blood Gas Bicarbonate Actual 4.3 mmol/L Low 22-26 [facility] CBC W/Diff, Automatedon 10-21 Absolute Lymph 1.29 X10 3/uL Normal 0.83-4.51 [facility] Comment on above: Performed By: #### L 100.0100, L500.2500, L501.6901 ####[facility] [address] [place], [address] Absolute Neut 8.7 X10 3/uL High 2.0-7.7 [facility] Comment on above: Performed By: #### L 100.0100, L500.2500, L501.6901 ####[facility] [address] [place], [address] Basophils/100 WBC (Bld) 1.4 % High 0-1 [facility] Comment on above: Performed By: #### L 100.0100, L500.2500, L501.6901 ####[facility] [address] [place], [address] Eosinophils/100 WBC (Bld) 1.1 % Normal 0-5 [facility] Comment on above: Performed By: #### L 100.0100, L500.2500, L501.6901 ####[facility] [address] [place], [address] Erythrocyte distribution width (RBC) [Ratio] 12.9 % Normal 11.6-14.6 [facility] Comment on above: Performed By: #### L 100.0100, L500.2500, L501.6901 ####[facility] [address] [place], [address] Hematocrit (Bld) [Volume fraction] 49.6 % Normal 40-54 [facility] Comment on above: Performed By: #### L 100.0100, L500.2500, L501.6901 ####[facility] [address] [place], [address] Hemoglobin (Bld) [Mass/Vol] 16.3 g/dL Normal 13.0-16. 5 [facility] Comment on above: Performed By: #### L 100.0100, L500.2500, L501.6901 ####[facility] [address] [place], [address] IG% 0.600 Normal 0.0-0.9 [facility] Comment on above: Result Comment: IG% - Immature Granulocytes (promyelocytes, myelocytes andmetamyelocytes) > 1% indicates that a LEFT SHIFT is Present. Performed By: #### L 100.0100, L500.2500, L501.6901 ####[facility] [address] [place], [address] Lymphocytes/100 WBC (Bld) 11.7 % Low 19-41 [facility] Comment on above: Performed By: #### L 100.0100, L500.2500, L501.6901 ####[facility] [address] [place], [address] MCH (RBC) [Entitic mass] 30.0 pg Normal 27.0-32.0 [facility] Comment on above: Performed By: #### L 100.0100, L500.2500, L501.6901 ####[facility] [address] [place], [address] MCHC (RBC) [Mass/Vol] 32.9 g/dL Normal 32-36 [facility] Comment on above: Performed By: #### L 100.0100, L500.2500, L501.6901 ####[facility] [address] [place], [address] MCV (RBC) [Entitic vol] 91.2 fL Normal 80-94 [facility] Comment on above: Performed By: #### L 100.0100, L500.2500, L501.6901 ####[facility] [address] [place], [address] Monocytes/100 WBC (Bld) 6.8 % Normal 0-10 [facility] Comment on above: Performed By: #### L 100.0100, L500.2500, L501.6901 ####[facility] [address] [place], [address] Neutrophils/100 WBC (Bld) 78.4 % High 47-70 [facility] Comment on above: Performed By: #### L 100.0100, L500.2500, L501.6901 ####[facility] [address] [place], [address] Nucleated RBC (Bld) [#/Vol] 0 10*3/uL Normal 0-5 [facility] Comment on above: Performed By: #### L 100.0100, L500.2500, L501.6901 ####[facility] [address] [place], [address] Platelet mean volume (Bld) [Entitic vol] 9.3 fL Normal 6.2-12.0 [facility] Comment on above: Performed By: #### L 100.0100, L500.2500, L501.6901 ####[facility] [address] [place], [address] Platelets (Bld) [#/Vol] 397 10*3/uL Normal 150-450 [facility] Comment on above: Performed By: #### L 100.0100, L500.2500, L501.6901 ####[facility] [address] [place], [address] RBC (Bld) [#/Vol] 5.44 10*6/uL Normal 4.6-6.2 [facility] Comment on above: Performed By: #### L 100.0100, L500.2500, L501.6901 ####[facility] [address] [place], [address] RDW SD 42.6 fl Normal 35.1-43.9 [facility] Comment on above: Performed By: #### L 100.0100, L500.2500, L501.6901 ####[facility] [address] [place], [address] WBC (Bld) [#/Vol] 11.1 10*3/uL High 4.4-11.0 [facility] Comment on above: Performed By: #### L 100.0100, L500.2500, L501.6901 ####[facility] [address] [place], [address] Carbon dioxide, total [Moles /volume] in Central venous bloodOrdered By: Julián Veliz on 11-04-2024 CO2 [Moles/Vol] 6.6 mmol/L Low 21.0-32.0 [facility] Comment on above: Critical Result(s) C alled at 11/04/2024-22:35 by Junior Mckeon to Dr. Julián Veliz Results read back by same. Chloride assayOrdered By: Edgardo Veliz on 11-04-2024 Chloride [Moles/Vol] 93 mmol/L Low 98-108 [facility] Emergency Department Summary on 11-04-2024 Emergency Department Summary Normal [facility] Eosinophil percentageOrdered By: Julián Veliz on 11-04-2024 Eosinophils/100 WBC (Bld) 1.1 % 0-5 [facility] Epithelial cells.squamous LM Ql (Urine sed)Ordered By: Julián Veliz on 11-04-2024 Epithelial cells.squamous LM.HPF (Urine sed) [#/Area] 0 /[HPF] 0-5 [facility] Erythrocyte distribution wid th ratioOrdered By: Julián Veliz on 11-04-2024 Erythrocyte distribution width (RBC) [Ratio] 12.9 % 11.6-14.6 [facility] Erythrocyte distribution wid th standard deviationOrdered By: Julián Veliz on 11-04-2024 Erythrocyte distribution width (RBC) [Entitic vol] 42.6 fL 35.1-43.9 [facility] Estimation of creatinine josh aranceOrdered By: Julián Veliz on 11-04-2024 Estimated Creatinine Clearance Calc 81.94 ml/min 50-250 [facility] GFR/1.73 sq M.predicted kirstin g non-blacks MDRD (S/P/Bld) [Vol rate/Area]Ordered By: Julián Veliz on 11-04-2024 Estimated GFR (MDRD) Non-Af Amer 66 >60 [facility] Comment on above: mL/min/1.73m2 CKD-EP I Creatinine Equation (2020) Glucose Ql (U)Ordered By: Edgardo Veliz on 11-04-2024 Glucose (U) [Mass/Vol] 1000 mg/dL High Normal [facility] de[facility]dered By: Izaiah Oliveros on 11-04-2024 Bedside Glucose (Misc Panel) > 500 mg/dL High 74-106 [facility] Comment on above: Dr Tesfaye FollowedMA NAGEMENT OF PATIENT CARE PER NURSING PROTOCOL H AND P Exam - [facility] 11-04-2024 H&P Exam - Hospitalist Normal [facility] Hematocrit Auto (Bld) [Volum e fraction]Ordered By: Julián Veliz on 11-04-2024 Hematocrit (Bld) [Volume fraction] 49.6 % 40-54 [facility] Hemoglobin measurementOrdere d By: Julián Veliz on 11-04-2024 Hemoglobin (Bld) [Mass/Vol] 16.3 g/dL 13.0-16. 5 [facility] Immature granulocytes/100 WB C Auto (Bld)Ordered By: Julián Veliz on 11-04-2024 Immature granulocytes/100 WBC (Bld) 0.600 % 0.0-0.9 [facility] Comment on above: IG% - Immature Granu locytes (promyelocytes, myelocytes and metamyelocytes) > 1% indicates that a LEFT SHIFT is Present. Ketones Test strip Ql (U)Ord ered By: Julián Veliz on 11-04-2024 Ketones Ql (U) 150 mg/dl Abnormal Negative [facility] Comment on above: CRITICAL VALUE *HCRI TICAL VALUE CALLED TO ETEAL11/04/[id number] [place] Eleonora Prasad.RESULTS READ BACK BY SAME. [id number] 11-04-2024 BETA-HYDROXYBUT 10.9 mmol/L Normal 0.0-0.3 [facility] Comment on above: Performed By: #### L 100.0100, L500.2500, L501.6901 ####[facility] [address] [place], [address] Lymphocytes Auto (Unsp spec) [#/Vol]Ordered By: Julián Veliz on 11-04-2024 Lymphocytes (Bld) [#/Vol] 1.29 10*3/uL 0.83-4.5 1 [facility] Lymphocytes/100 WBC Auto (Un sp spec)Ordered By: Julián Veliz on 11-04-2024 Lymphocytes/100 WBC (Bld) 11.7 % Low 19-41 [facility] MCV (mean corpuscular volume ) determinationOrdered By: Julián Veliz on 11-04-2024 MCV (RBC) [Entitic vol] 91.2 fL 80-[address] [facility] Mean corpuscular hemoglobin (MCH) determinationOrdered By: Julián Veliz on 11-04-2024 MCH (RBC) [Entitic mass] 30.0 pg 27.0-32.0 [facility] Mean corpuscular hemoglobin concentration (MCHC) determinationOrdered By: Julián Veliz on 11-04-2024 MCHC (RBC) [Mass/Vol] 32.9 g/dL 32-36 [facility] Mean platelet volume determi nationOrdered By: Julián Veliz on 11-04-2024 Platelet mean volume (Bld) [Entitic vol] 9.3 fL 6.2-12.0 [facility] Methadone, urineOrdered By: Izaiah Oliveros on 11-04-2024 Urine Methadone Screen Negative < 300 ng/mL [facility] Microscopic analysis of urin e for red blood cells (RBC)Ordered By: Julián Veliz on 11-04-2024 Urine RBC 0 SEEN /hpf 0-5 [facility] Monocyte percentageOrdered B y: Julián Veliz on 11-04-2024 Monocytes/100 WBC (Bld) 6.8 % 0-10 [facility] Mucus LM Ql (Urine sed)Order ed By: Julián Veliz on 11-04-2024 Mucus Ql (Urine sed) 0 SEEN /hpf [facility] Neutrophil percentageOrdered By: Julián Veliz on 11-04-2024 Neutrophils/100 WBC (Bld) 78.4 % High 47-70 [facility] Nitrite Test strip Ql (U)Ord ered By: Julián Veliz on 11-04-2024 Nitrite Ql (U) Negative Negative [facility] No Panel InformationOrdered By: Izaiah Oliveros on 11-04-2024 Urine Buprenorphine Qualitative Negative < 200 ng/mL [facility] Urine Oxycodone Screen Negative < 100 ng/mL [facility] No Panel InformationOrdered By: Julián Veliz on 11-04-2024 Bld Gas Crit Called To/Read Back By Yes [facility] Blood Gas Sample Site R Radial [facility] Blood Gas Specimen Type ART [facility] Blood Gas Vent Mode Not entered [facility] Oxygen Delivery Device Not entered [facility] Beta-Hydroxybutyric Acid mmol/L 10.9 mmol/L 0.0-0.3 [facility] Nucleated red blood cell per centageOrdered By: Julián Veliz on 11-04-2024 Nucleated RBC/100 WBC (Bld) [Ratio] 0 % 0-5 [facility] Oxygen saturation measuremen tOrdered By: Julián Veliz on 11-04-2024 Blood Gas Oxygen Saturation 97 % 95-99 [facility] Partial pressure of carbon d ioxide measurementOrdered By: Julián Veliz on 11-04-2024 Arterial Blood Partial Pressure CO2 15.5 mmHg Low 35-45 [facility] Partial pressure of oxygen m easurementOrdered By: Julián Veliz on 11-04-2024 Arterial Blood Partial Pressure O2 126 mmHG High 75-100 [facility] Platelet countOrdered By: Edgardo Veliz on 11-04-2024 Platelets (Bld) [#/Vol] 397 10*3/uL 150-450 [facility] Potassium (Unsp spec) [Mass/ Vol]Ordered By: Julián Veliz on 11-04-2024 Potassium [Moles/Vol] 5.4 mmol/L High 3.3-5.1 [facility] Protein Test strip Ql (U)Ord ered By: Julián Veliz on 11-04-2024 Protein Ql (U) 30 mg/dl High Negative [facility] Quantitative urine opiates m easurementOrdered By: Izaiah Oliveros on 11-04-2024 Opiates Ql (U) Negative < 300 ng/mL [facility] RBC Auto (Bld) [#/Vol]Ordere d By: Julián Veliz on 11-04-2024 RBC (Bld) [#/Vol] 5.44 10*6/uL 4.6-6.2 [facility] Serum creatinine measurement (mass/volume)Ordered By: Julián Veliz on 11-04-2024 Creatinine [Mass/Vol] 1.46 mg/dL High 0.70-1.20 [facility] Serum glucose measurement (m ass/volume)Ordered By: Julián Veliz on 11-04-2024 Glucose [Mass/Vol] 629 mg/dL High 70-99 [facility] Comment on above: Critical Result(s) C alled at 11/04/2024-22:35 by Junior Mckeon to Dr. Julián Veliz Results read back by same. Serum or plasma calcium megan urement (mass/volume)Ordered By: Julián Veliz on 11-04-2024 Calcium [Mass/Vol] 9.7 mg/dL 7.6-11.0 [facility] Serum or plasma urea nitroge n measurement (mass/volume)Ordered By: Julián Veliz on 11-04-2024 Urea nitrogen [Mass/Vol] 18 mg/dL 4-19 [facility] Sodium levelOrdered By: Julián Veliz on 11-04-2024 Sodium [Moles/Vol] 136 mmol/L 133-145 [facility] Total carbon dioxide measure mentOrdered By: Julián Veliz on 11-04-2024 Blood Gas Total CO2 < 5 mmol/L [facility] Urinalysis, Completeon 11-04 RBC 0 SEEN Normal 0-5 [facility] Comment on above: Order Comment: COLLE CTOR TO SPECIFY Performed By: #### L 400.0001 ####[facility] [address] [place], [address] BACTERIA 0 SEEN Normal None Seen [facility] Comment on above: Order Comment: ZAHRA CTOR TO SPECIFY Performed By: #### L 400.0001 ####[facility] [address] [place], [address] EPI,SQUAMOUS 0 SEEN Normal 0-5 [facility] Comment on above: Order Comment: ZAHRA CTOR TO SPECIFY Performed By: #### L 400.0001 ####[facility] [address] [place], [address] Mucus Ql (Urine sed) 0 SEEN Normal [facility] Comment on above: Order Comment: ZAHRA CTOR TO SPECIFY Performed By: #### L 400.0001 ####[facility] [address] [place], [address] WBC 0 SEEN Normal 0-5 [facility] Comment on above: Order Comment: ZAHRA CTOR TO SPECIFY Performed By: #### L 400.0001 ####[facility] [address] [place], [address] Urine benzodiazepine levelOr dered By: Izaiah Oliveros on 11-04-2024 Benzodiazepines Ql (U) Negative < 200 ng/mL [facility] Urine blood detectionOrdered By: Julián Veliz on 11-04-2024 Urine Occult Blood 10 /ul High Negative [facility] Urine clarityOrdered By: Zain Veliz on 11-04-2024 Clarity (U) Clear Clear [facility] Urine cocaine levelOrdered B y: Izaiah Oliveros on 11-04-2024 Cocaine Ql (U) Positive < 300 ng/mL [facility] Comment on above: If confirmation test ing is needed, a separate order will be required to send out testing to the reference laboratory. Urine color determinationOrd ered By: Julián Veliz on 11-04-2024 Color (U) Yellow Yellow [facility] Urine togjj-9-ukbwoehehcfwkr abinol (THC) measurementOrdered By: Izaiah Oliveros on 11-04-2024 Cannabinoids Screen Ql (U) Negative < 50 ng/m L [facility] Urine leukocyte esterase det ection by dipstickOrdered By: Julián Veliz on 11-04-2024 Leukocyte esterase Test strip Ql (U) Negative Negative [facility] Urine pHOrdered By: Julián israel on 11-04-2024 pH (U) 5.0 [pH] 5.0 - 8.0 [facility] Urine phencyclidine (PCP) de tectionOrdered By: Izaiah Oliveros on 11-04-2024 Phencyclidine Ql (U) Negative < 25 ng/mL [facility] Urine sediment bacteria coun t by microscopy (number/high power field)Ordered By: Julián Veliz on 11-04-2024 Bacteria LM.HPF (Urine sed) [#/Area] 0 /[HPF] None Seen [facility] Urine specific gravity measu rementOrdered By: Julián Veliz on 11-04-2024 Specific gravity (U) [Rel density] 1.020 1.002-1.030 [facility] Urobilinogen Ql (U)Ordered B y: Julián Veliz on 11-04-2024 Urine Urobilinogen Normal mg/dl Normal [facility] White blood cell (WBC) count Ordered By: Julián Veliz on 11-04-2024 WBC (Bld) [#/Vol] 11.1 10*3/uL High 4.4-11.0 [facility] White blood cell countOrdere d By: Julián Veliz on 11-04-2024 Urine WBC 0 SEEN /hpf 0-5 [facility] fentaNYL Screen Ql (U)Ordere d By: Izaiah Oliveros on 11-04-2024 Urine Fentanyl Screen Negative [facility] pH (Unsp spec)Ordered By: Edgardo Veliz on 11-04-2024 Blood Gas pH 7.06 Low 7.35-7.45 [facility] Basic Metabolic Profile (BMP )on 07-29-2024 BUN Normal 7-18 [facility] Comment on above: Result Comment: Canc elled via OM: Order cancelled - Patient discharged Performed By: #### L 500.2500, L100.0100 ####[facility] [address] [place], [address] BUN/CRE Normal 10-20 [facility] Comment on above: Result Comment: Canc elled via OM: Order cancelled - Patient discharged Performed By: #### L 500.2500, L100.0100 ####[facility] [address] [place], [address] CA,Total Normal 8.5-10.1 [facility] Comment on above: Result Comment: Canc elled via OM: Order cancelled - Patient discharged Performed By: #### L 500.2500, L100.0100 ####[facility] [address] [place], [address] CL Normal 98-107 [facility] Comment on above: Result Comment: Canc elled via OM: Order cancelled - Patient discharged Performed By: #### L 500.2500, L100.0100 ####[facility] [address] [place], [address] CO2 Normal 21.0-32.0 [facility] Comment on above: Result Comment: Canc elled via OM: Order cancelled - Patient discharged Performed By: #### L 500.2500, L100.0100 ####[facility] [address] [place], [address] CREAT,SERUM Normal 0.70-1.30 [facility] Comment on above: Result Comment: Canc elled via OM: Order cancelled - Patient discharged Performed By: #### L 500.2500, L100.0100 ####[facility] [address] [place], [address] EST GFR Normal >60 [facility] Comment on above: Result Comment: Canc elled via OM: Order cancelled - Patient discharged Performed By: #### L 500.2500, L100.0100 ####[facility] [address] [place], [address] EST GFR - AA Normal >60 [facility] Comment on above: Result Comment: Canc elled via OM: Order cancelled - Patient discharged Performed By: #### L 500.2500, L100.0100 ####[facility] [address] [place], [address] GAP Normal 5-15 [facility] Comment on above: Result Comment: Canc elled via OM: Order cancelled - Patient discharged Performed By: #### L 500.2500, L100.0100 ####[facility] [address] [place], [address] GLU Normal 74-106 [facility] Comment on above: Result Comment: Canc elled via OM: Order cancelled - Patient discharged Performed By: #### L 500.2500, L100.0100 ####[facility] [address] [place], [address] Potassium Normal 3.5-5.1 [facility] Comment on above: Result Comment: Canc elled via OM: Order cancelled - Patient discharged Performed By: #### L 500.2500, L100.0100 ####[facility] [address] [place], [address] Basic Metabolic Profile (BMP) Normal 136-145 [facility] Comment on above: Result Comment: Canc elled via OM: Order cancelled - Patient discharged Performed By: #### L 500.2500, L100.0100 ####[facility] [address] [place], [address] CBC W/Diff, Automatedon 12-0 Absolute Neut Normal 2.0-7.7 [facility] Comment on above: Result Comment: Canc elled via OM: Order cancelled - Patient discharged Performed By: #### L 500.2500, L100.0100 ####[facility] [address] [place], [address] HCT Normal 40-54 [facility] Comment on above: Result Comment: Canc elled via OM: Order cancelled - Patient discharged Performed By: #### L 500.2500, L100.0100 ####[facility] [address] [place], [address] HGB Normal 13.0-16.5 [facility] Comment on above: Result Comment: Canc elled via OM: Order cancelled - Patient discharged Performed By: #### L 500.2500, L100.0100 ####[facility] [address] [place], [address] MCH Normal 27.0-32.0 [facility] Comment on above: Result Comment: Canc elled via OM: Order cancelled - Patient discharged Performed By: #### L 500.2500, L100.0100 ####[facility] [address] [place], [address] MCHC Normal 32-36 [facility] Comment on above: Result Comment: Canc elled via OM: Order cancelled - Patient discharged Performed By: #### L 500.2500, L100.0100 ####[facility] [address] [place], [address] MCV Normal 80-94 [facility] Comment on above: Result Comment: Canc elled via OM: Order cancelled - Patient discharged Performed By: #### L 500.2500, L100.0100 ####[facility] [address] [place], [address] NEUT% Normal 47-70 [facility] Comment on above: Result Comment: Canc elled via OM: Order cancelled - Patient discharged Performed By: #### L 500.2500, L100.0100 ####[facility] [address] [place], [address] PLT Normal 150-450 [facility] Comment on above: Result Comment: Canc elled via OM: Order cancelled - Patient discharged Performed By: #### L 500.2500, L100.0100 ####[facility] [address] [place], [address] RBC Normal 4.6-6.2 [facility] Comment on above: Result Comment: Canc elled via OM: Order cancelled - Patient discharged Performed By: #### L 500.2500, L100.0100 ####[facility] [address] [place], [address] RDW CV Normal 11.6-14.6 [facility] Comment on above: Result Comment: Canc elled via OM: Order cancelled - Patient discharged Performed By: #### L 500.2500, L100.0100 ####[facility] [address] [place], [address] RDW SD Normal 35.1-43.9 [facility] Comment on above: Result Comment: Canc elled via OM: Order cancelled - Patient discharged Performed By: #### L 500.2500, L100.0100 ####[facility] [address] [place], [address] WBC Normal 4.4-11.0 [facility] Comment on above: Result Comment: Canc elled via OM: Order cancelled - Patient discharged Performed By: #### L 500.2500, L100.0100 ####[facility] [address] [place], [address] Basic Metabolic Profile (BMP )on 07-28-2024 BUN Normal 7-18 [facility] Comment on above: Result Comment: Canc elled via OM: Order cancelled - Patient discharged Performed By: #### L 500.2500, L100.0100 ####[facility] [address] [place], [address] BUN/CRE Normal 10-20 [facility] Comment on above: Result Comment: Canc elled via OM: Order cancelled - Patient discharged Performed By: #### L 500.2500, L100.0100 ####[facility] [address] [place], [address] CA,Total Normal 8.5-10.1 [facility] Comment on above: Result Comment: Canc elled via OM: Order cancelled - Patient discharged Performed By: #### L 500.2500, L100.0100 ####[facility] [address] [place], [address] CL Normal 98-107 [facility] Comment on above: Result Comment: Canc elled via OM: Order cancelled - Patient discharged Performed By: #### L 500.2500, L100.0100 ####[facility] [address] [place], [address] CO2 Normal 21.0-32.0 [facility] Comment on above: Result Comment: Canc elled via OM: Order cancelled - Patient discharged Performed By: #### L 500.2500, L100.0100 ####[facility] [address] [place], [address] CREAT,SERUM Normal 0.70-1.30 [facility] Comment on above: Result Comment: Canc elled via OM: Order cancelled - Patient discharged Performed By: #### L 500.2500, L100.0100 ####[facility] [address] [place], [address] EST GFR Normal >60 [facility] Comment on above: Result Comment: Canc elled via OM: Order cancelled - Patient discharged Performed By: #### L 500.2500, L100.0100 ####[facility] [address] [place], [address] EST GFR - AA Normal >60 [facility] Comment on above: Result Comment: Canc elled via OM: Order cancelled - Patient discharged Performed By: #### L 500.2500, L100.0100 ####[facility] [address] [place], [address] GAP Normal 5-15 [facility] Comment on above: Result Comment: Canc elled via OM: Order cancelled - Patient discharged Performed By: #### L 500.2500, L100.0100 ####[facility] [address] [place], [address] GLU Normal 74-106 [facility] Comment on above: Result Comment: Canc elled via OM: Order cancelled - Patient discharged Performed By: #### L 500.2500, L100.0100 ####[facility] [address] [place], [address] Potassium Normal 3.5-5.1 [facility] Comment on above: Result Comment: Canc elled via OM: Order cancelled - Patient discharged Performed By: #### L 500.2500, L100.0100 ####[facility] [address] [place], [address] Basic Metabolic Profile (BMP) Normal 136-145 [facility] Comment on above: Result Comment: Canc elled via OM: Order cancelled - Patient discharged Performed By: #### L 500.2500, L100.0100 ####[facility] [address] [place], [address] CBC W/Diff, Automatedon 12-0 -2023 Absolute Neut Normal 2.0-7.7 [facility] Comment on above: Result Comment: Canc elled via OM: Order cancelled - Patient discharged Performed By: #### L 500.2500, L100.0100 ####[facility] [address] [place], [address] HCT Normal 40-54 [facility] Comment on above: Result Comment: Canc elled via OM: Order cancelled - Patient discharged Performed By: #### L 500.2500, L100.0100 ####[facility] [address] [place], [address] HGB Normal 13.0-16.5 [facility] Comment on above: Result Comment: Canc elled via OM: Order cancelled - Patient discharged Performed By: #### L 500.2500, L100.0100 ####[facility] [address] [place], [address] MCH Normal 27.0-32.0 [facility] Comment on above: Result Comment: Canc elled via OM: Order cancelled - Patient discharged Performed By: #### L 500.2500, L100.0100 ####[facility] [address] [place], [address] MCHC Normal 32-36 [facility] Comment on above: Result Comment: Canc elled via OM: Order cancelled - Patient discharged Performed By: #### L 500.2500, L100.0100 ####[facility] [address] [place], [address] MCV Normal 80-94 [facility] Comment on above: Result Comment: Canc elled via OM: Order cancelled - Patient discharged Performed By: #### L 500.2500, L100.0100 ####[facility] [address] [place], [address] NEUT% Normal 47-70 [facility] Comment on above: Result Comment: Canc elled via OM: Order cancelled - Patient discharged Performed By: #### L 500.2500, L100.0100 ####[facility] [address] [place], [address] PLT Normal 150-450 [facility] Comment on above: Result Comment: Canc elled via OM: Order cancelled - Patient discharged Performed By: #### L 500.2500, L100.0100 ####[facility] [address] [place], [address] RBC Normal 4.6-6.2 [facility] Comment on above: Result Comment: Canc elled via OM: Order cancelled - Patient discharged Performed By: #### L 500.2500, L100.0100 ####[facility] [address] [place], [address] RDW CV Normal 11.6-14.6 [facility] Comment on above: Result Comment: Canc elled via OM: Order cancelled - Patient discharged Performed By: #### L 500.2500, L100.0100 ####[facility] [address] [place], [address] RDW SD Normal 35.1-43.9 [facility] Comment on above: Result Comment: Canc elled via OM: Order cancelled - Patient discharged Performed By: #### L 500.2500, L100.0100 ####[facility] [facility] [address] [place], [address] WBC Normal 4.4-11.0 [facility] Comment on above: Result Comment: Canc elled via OM: Order cancelled - Patient discharged Performed By: #### L 500.2500, L100.0100 ####[facility] [address] [place], [address] Absolute neutrophil countOrd ered By: Basil Escobar on 07-27-2024 Neutrophils (Bld) [#/Vol] 15.6 10*3/uL High 2.0-7.7 [facility] Basic Metabolic Profile (BMP )on 07-27-2024 BUN Normal 7-18 [facility] Comment on above: Order Comment: Call MD with results STAT Result Comment: Canc elled via OM: MD Ordered Performed By: #### L 500.2500 ####[facility] [address] [place], [address] BUN/CRE Normal 10-20 [facility] Comment on above: Order Comment: Call MD with results STAT Result Comment: Canc elled via OM: MD Ordered Performed By: #### L 500.2500 ####[facility] [address] [place], [address] CA,Total Normal 8.5-10.1 [facility] Comment on above: Order Comment: Call MD with results STAT Result Comment: Canc elled via OM: MD Ordered Performed By: #### L 500.2500 ####[facility] [address] [place], [address] CL Normal 98-107 [facility] Comment on above: Order Comment: Call MD with results STAT Result Comment: Canc elled via OM: MD Ordered Performed By: #### L 500.2500 ####[facility] [address] [place], [address] CO2 Normal 21.0-32.0 [facility] Comment on above: Order Comment: Call MD with results STAT Result Comment: Canc elled via OM: MD Ordered Performed By: #### L 500.2500 ####[facility] [address] [place], [address] CREAT,SERUM Normal 0.70-1.30 [facility] Comment on above: Order Comment: Call MD with results STAT Result Comment: Canc elled via OM: MD Ordered Performed By: #### L 500.2500 ####[facility] [address] [place], [address] EST GFR Normal >60 [facility] Comment on above: Order Comment: Call MD with results STAT Result Comment: Canc elled via OM: MD Ordered Performed By: #### L 500.2500 ####[facility] [address] [place], [address] EST GFR - AA Normal >60 [facility] Comment on above: Order Comment: Call MD with results STAT Result Comment: Canc elled via OM: MD Ordered Performed By: #### L 500.2500 ####[facility] [address] [place], [address] GAP Normal 5-15 [facility] Comment on above: Order Comment: Call MD with results STAT Result Comment: Canc elled via OM: MD Ordered Performed By: #### L 500.2500 ####[facility] [address] [place], [address] GLU Normal 74-106 [facility] Comment on above: Order Comment: Call MD with results STAT Result Comment: Canc elled via OM: MD Ordered Performed By: #### L 500.2500 ####[facility] [address] [place], [address] Potassium Normal 3.5-5.1 [facility] Comment on above: Order Comment: Call MD with results STAT Result Comment: Canc elled via OM: MD Ordered Performed By: #### L 500.2500 ####[facility] [address] [place], [address] Basic Metabolic Profile (BMP) Normal 136-145 [facility] Comment on above: Order Comment: Call MD with results STAT Result Comment: Canc elled via OM: MD Ordered Performed By: #### L 500.2500 ####[facility] [address] [place], [address] BUN/CRE 20.9 RATIO High 10-20 [facility] Comment on above: Performed By: #### L 500.2500 ####[facility] [address] [place], [address] CA,Total 8.6 mg/dL Normal 8.5-10.1 [facility] Comment on above: Performed By: #### L 500.2500 ####[facility] [address] [place], [address] Chloride [Moles/Vol] 105 mmol/L Normal 98-107 [facility] Comment on above: Performed By: #### L 500.2500 ####[facility] [address] [place], [address] CO2 [Moles/Vol] 23.0 mmol/L Normal 21.0-32.0 [facility] Comment on above: Performed By: #### L 500.2500 ####[facility] [address] [place], [address] Creatinine [Mass/Vol] 1.10 mg/dL Normal 0.70-1.30 [facility] Comment on above: Result Comment: The validity of the calculated GFR GFRAA in patients over70 years has not been determined. Clinical correlation isessential. Performed By: #### L 500.2500 ####[facility] [address] [place], [address] ECRCL 108.76 ml/min Normal [facility] Comment on above: Performed By: #### L 500.2500 ####[facility] [address] [place], [address] EST GFR - AA 102 mL/min Normal >60 [facility] Comment on above: Result Comment: Afri can Surinamese GFR Calc Performed By: #### L 500.2500 ####[facility] [address] [place], [address] GAP 12 Normal 5-15 [facility] Comment on above: Performed By: #### L 500.2500 ####[facility] [address] [place], [address] GFR/1.73 sq M.predicted among non-blacks MDRD (S/P/Bld) [Vol rate/Area] 84 mL/min/{1.73_m2} Normal >60 [facility] Comment on above: Result Comment: Non- GFR Calc Performed By: #### L 500.2500 ####[facility] [address] [place], [address] Glucose [Mass/Vol] 275 mg/dL High 74-106 [facility] Comment on above: Result Comment: Gluc ose result greater than or equal to 200 mg/dLsuggests DIABETES MELLITUS per A.D.A. criteria. Performed By: #### L 500.2500 ####[facility] [address] [place], [address] Potassium [Moles/Vol] 4.1 mmol/L Normal 3.5-5.1 [facility] Comment on above: Performed By: #### L 500.2500 ####[facility] [address] [place], [address] Sodium [Moles/Vol] 140 mmol/L Normal 136-145 [facility] Comment on above: Performed By: #### L 500.2500 ####[facility] [address] [place], [address] Urea nitrogen [Mass/Vol] 23 mg/dL High 7-18 [facility] Comment on above: Performed By: #### L 500.2500 ####[facility] [address] [place], [address] BUN Normal 7-18 [facility] Comment on above: Order Comment: Call MD with results STAT Result Comment: Canc elled via OM: MD Ordered Performed By: #### L 500.2500 ####[facility] [address] [place], [address] BUN/CRE Normal 10-20 [facility] Comment on above: Order Comment: Call MD with results STAT Result Comment: Canc elled via OM: MD Ordered Performed By: #### L 500.2500 ####[facility] [address] [place], [address] CA,Total Normal 8.5-10.1 [facility] Comment on above: Order Comment: Call MD with results STAT Result Comment: Canc elled via OM: MD Ordered Performed By: #### L 500.2500 ####[facility] [address] [place], [address] CL Normal 98-107 [facility] Comment on above: Order Comment: Call MD with results STAT Result Comment: Canc elled via OM: MD Ordered Performed By: #### L 500.2500 ####[facility] [address] [place], [address] CO2 Normal 21.0-32.0 [facility] Comment on above: Order Comment: Call MD with results STAT Result Comment: Canc elled via OM: MD Ordered Performed By: #### L 500.2500 ####[facility] [address] [place], [address] CREAT,SERUM Normal 0.70-1.30 [facility] Comment on above: Order Comment: Call MD with results STAT Result Comment: Canc elled via OM: MD Ordered Performed By: #### L 500.2500 ####[facility] [address] [place], [address] EST GFR Normal >60 [facility] Comment on above: Order Comment: Call MD with results STAT Result Comment: Canc elled via OM: MD Ordered Performed By: #### L 500.2500 ####[facility] [address] [place], [address] EST GFR - AA Normal >60 [facility] Comment on above: Order Comment: Call MD with results STAT Result Comment: Canc elled via OM: MD Ordered Performed By: #### L 500.2500 ####[facility] [address] [place], [address] GAP Normal 5-15 [facility] Comment on above: Order Comment: Call MD with results STAT Result Comment: Canc elled via OM: MD Ordered Performed By: #### L 500.2500 ####[facility] [address] [place], [address] GLU Normal 74-106 [facility] Comment on above: Order Comment: Call MD with results STAT Result Comment: Canc elled via OM: MD Ordered Performed By: #### L 500.2500 ####[facility] [address] [place], [address] Potassium Normal 3.5-5.1 [facility] Comment on above: Order Comment: Call MD with results STAT Result Comment: Canc elled via OM: MD Ordered Performed By: #### L 500.2500 ####[facility] [address] [place], [address] Basic Metabolic Profile (BMP) Normal 136-145 [facility] Comment on above: Order Comment: Call MD with results STAT Result Comment: Canc elled via OM: MD Ordered Performed By: #### L 500.2500 ####[facility] [address] [place], [address] BUN Normal 7-18 [facility] Comment on above: Order Comment: Call MD with results STAT Result Comment: Canc elled via OM: MD Ordered Performed By: #### L 500.2500 ####[facility] [address] [place], [address] BUN/CRE Normal 10-20 [facility] Comment on above: Order Comment: Call MD with results STAT Result Comment: Canc elled via OM: MD Ordered Performed By: #### L 500.2500 ####[facility] [address] [place], [address] CA,Total Normal 8.5-10.1 [facility] Comment on above: Order Comment: Call MD with results STAT Result Comment: Canc elled via OM: MD Ordered Performed By: #### L 500.2500 ####[facility] [address] [place], [address] CL Normal 98-107 [facility] Comment on above: Order Comment: Call MD with results STAT Result Comment: Canc elled via OM: MD Ordered Performed By: #### L 500.2500 ####[facility] [address] [place], [address] CO2 Normal 21.0-32.0 [facility] Comment on above: Order Comment: Call MD with results STAT Result Comment: Canc elled via OM: MD Ordered Performed By: #### L 500.2500 ####[facility] [address] [place], [address] CREAT,SERUM Normal 0.70-1.30 [facility] Comment on above: Order Comment: Call MD with results STAT Result Comment: Canc elled via OM: MD Ordered Performed By: #### L 500.2500 ####[facility] [address] [place], [address] EST GFR Normal >60 [facility] Comment on above: Order Comment: Call MD with results STAT Result Comment: Canc elled via OM: MD Ordered Performed By: #### L 500.2500 ####[facility] [address] [place], [address] EST GFR - AA Normal >60 [facility] Comment on above: Order Comment: Call MD with results STAT Result Comment: Canc elled via OM: MD Ordered Performed By: #### L 500.2500 ####[facility] [address] [place], [address] GAP Normal 5-15 [facility] Comment on above: Order Comment: Call MD with results STAT Result Comment: Canc elled via OM: MD Ordered Performed By: #### L 500.2500 ####[facility] [address] [place], [address] GLU Normal 74-106 [facility] Comment on above: Order Comment: Call MD with results STAT Result Comment: Canc elled via OM: MD Ordered Performed By: #### L 500.2500 ####[facility] [address] [place], [address] Potassium Normal 3.5-5.1 [facility] Comment on above: Order Comment: Call MD with results STAT Result Comment: Canc elled via OM: MD Ordered Performed By: #### L 500.2500 ####[facility] [address] [place], [address] Basic Metabolic Profile (BMP) Normal 136-145 [facility] Comment on above: Order Comment: Call MD with results STAT Result Comment: Canc elled via OM: MD Ordered Performed By: #### L 500.2500 ####[facility] [address] [place], [address] Basophil percentageOrdered B y: Basil Alida on 07-27-2024 Basophils/100 WBC (Bld) 0.2 % 0-1 [facility] Bedside Glucoseon 07-27-2024 FINGERSTICK GLU 267 mg/dL High 74-106 [facility] Comment on above: Result Comment: ETHEL GEMENT OF PATIENT CARE PER NURSING PROTOCOL Performed By: #### L 501.080 ####[facility] [address] [place], [address] FINGERSTICK GLU 374 mg/dL High [address] [facility] Comment on above: Result Comment: ETHEL GEMENT OF PATIENT CARE PER NURSING PROTOCOL Performed By: #### L 501.080 ####[facility] [address] [place], [address] FINGERSTICK GLU > 500 Invalid Interpretation Code [address] Comment on above: Result Comment: Dr Blaine bella FollowedMANAGEMENT OF PATIENT CARE PER NURSING PROTOCOL Performed By: #### L 501.080 ####[facility] [address] [place], [address] FINGERSTICK GLU > 500 Invalid Interpretation Code [address] Comment on above: Result Comment: Dr Blaine bella FollowedMANAGEMENT OF PATIENT CARE PER NURSING PROTOCOL Performed By: #### L 501.080 ####[facility] [address] [place], [address] FINGERSTICK GLU 264 mg/dL High [address] [place] [address] Comment on above: Result Comment: ETHEL GEMENT OF PATIENT CARE PER NURSING PROTOCOL Performed By: #### L 501.080 ####[facility] [address] [place], [address] Blood urea nitrogen (BUN)/cr eatinine ratioOrdered By: Basil Escobar on 07-27-2024 Urea nitrogen/Creatinine [Mass ratio] 20.9 mg/mg High 10-20 [facility] CBC W/Diff, Automatedon 12-0 PATH REV Reviewed Normal [facility] Comment on above: Result Comment: Neut rophilic leukocytosis.MILD Thrombocytosis.Clinical correlation suggested.Zander Stroud D.O. 07/27/24 AMENDED REPORT 07/27/24 1440 PATH REV previously reported as: December Performed By: #### L 505.6140, L505.5000, L100.0100, L501.6900, L501.2450, L505.6100, L505.6200, L501.9100, L500.2500, L500.4100, L500.3400 ####[facility] [address] [place], [address] Absolute Lymph 0.52 X10 3/uL Low 0.83-4.51 [facility] Comment on above: Performed By: #### L 100.0100 ####[facility] [address] [place], [address] Absolute Neut 15.6 X10 3/uL High 2.0-7.7 [facility] Comment on above: Performed By: #### L 100.0100 ####[facility] [address] [place], [address] Basophils/100 WBC (Bld) 0.2 % Normal 0-1 [facility] Comment on above: Performed By: #### L 100.0100 ####[facility] [address] [place], [address] Eosinophils/100 WBC (Bld) 0.2 % Normal 0-5 [facility] Comment on above: Performed By: #### L 100.0100 ####[facility] [address] [place], [address] Erythrocyte distribution width (RBC) [Ratio] 13.6 % Normal 11.6-14.6 [facility] Comment on above: Performed By: #### L 100.0100 ####[facility] [address] [place], [address] Hematocrit (Bld) [Volume fraction] 29.7 % Low 40-54 [facility] Comment on above: Performed By: #### L 100.0100 ####[facility] [address] [place], [address] Hemoglobin (Bld) [Mass/Vol] 9.0 g/dL Low 13.0-16. 5 [facility] Comment on above: Performed By: #### L 100.0100 ####[facility] [address] [place], [address] IG% 0.400 Normal 0.0-0.9 [facility] Comment on above: Result Comment: IG% - Immature Granulocytes (promyelocytes, myelocytes andmetamyelocytes) > 1% indicates that a LEFT SHIFT is Present. Performed By: #### L 100.0100 ####[facility] [address] [place], [address] Lymphocytes/100 WBC (Bld) 3.0 % Low 19-41 [facility] Comment on above: Performed By: #### L 100.0100 ####[facility] [address] [place], [address] MCH (RBC) [Entitic mass] 25.5 pg Low 27.0-32.0 [facility] Comment on above: Performed By: #### L 100.0100 ####[facility] [address] [place], [address] MCHC (RBC) [Mass/Vol] 30.3 g/dL Low 32-36 [facility] Comment on above: Performed By: #### L 100.0100 ####[facility] [address] [place], [address] MCV (RBC) [Entitic vol] 84.1 fL Normal 80-94 [facility] Comment on above: Performed By: #### L 100.0100 ####[facility] [address] [place], [address] Monocytes/100 WBC (Bld) 4.8 % Normal 0-[address] [facility] Comment on above: Performed By: #### L 100.0100 ####[facility] [address] [place], [address] Neutrophils/100 WBC (Bld) 91.4 % High 47-70 [facility] Comment on above: Performed By: #### L 100.0100 ####[facility] [address] [place], [address] Nucleated RBC (Bld) [#/Vol] 0 10*3/uL Normal 0-5 [facility] Comment on above: Performed By: #### L 100.0100 ####[facility] [address] [place], [address] Platelet mean volume (Bld) [Entitic vol] 10.1 fL Normal 6.2-12.0 [facility] Comment on above: Performed By: #### L 100.0100 ####[facility] [address] [place], [address] Platelets (Bld) [#/Vol] 236 10*3/uL Normal 150-450 [facility] Comment on above: Performed By: #### L 100.0100 ####[facility] [address] [place], [address] RBC (Bld) [#/Vol] 3.53 10*6/uL Low 4.6-6.2 [facility] Comment on above: Performed By: #### L 100.0100 ####[facility] [address] [place], [address] RDW SD 41.7 fl Normal 35.1-43.9 [facility] Comment on above: Performed By: #### L 100.0100 ####[facility] [address] [place], [address] WBC (Bld) [#/Vol] 17.1 10*3/uL High 4.4-11.0 [facility] Comment on above: Performed By: #### L 100.0100 ####[facility] [address] [place], [address] Carbon dioxide measurementOr dered By: Basil Escobar on 07-27-2024 CO2 [Moles/Vol] 23.0 mmol/L 21.0-32.0 [facility] Chloride measurementOrdered By: Basil Escobar on 07-27-2024 Chloride [Moles/Vol] 105 mmol/L 98-107 [facility] Eosinophil percentageOrdered By: Basil Escobar on 07-27-2024 Eosinophils/100 WBC (Bld) 0.2 % 0-5 [facility] Erythrocyte distribution wid th ratioOrdered By: Basil Escobar on 07-27-2024 Erythrocyte distribution width (RBC) [Ratio] 13.6 % 11.6-14.6 [facility] Erythrocyte distribution wid th standard deviationOrdered By: Basil Escobar on 07-27-2024 Erythrocyte distribution width (RBC) [Entitic vol] 41.7 fL 35.1-43.9 [facility] Estimated glomerular filtrat ion rate (GFR) AmericanOrdered By: Basil Escobar on 07-27-2024 Estimated GFR (MDRD) Amer 102 mL/min >60 [facility] Comment on above: GFR Calc Estimation of creatinine josh aranceOrdered By: Basil Escobar on 07-27-2024 Estimated Creatinine Clearance Calc 108.76 ml/min [facility] Glomerular filtration rate ( GFR) estimationOrdered By: Basil Escobar on 07-27-2024 Estimated GFR (MDRD) Non-Af Amer 84 mL/min >60 [facility] Comment on above: Non- GFR Calc Glucose measurementOrdered B y: Basil Escobar on 07-27-2024 Glucose [Mass/Vol] 275 mg/dL High 74-106 [facility] Comment on above: Glucose result great er than or equal to 200 mg/dLsuggests DIABETES MELLITUS per A.D.A. criteria. Glucose measurement at bedsi deOrdered By: Basil Escobar on 07-27-2024 Bedside Glucose (Misc Panel) 267 mg/dL High 74-106 [facility] Comment on above: MANAGEMENT OF PATIEN T CARE PER NURSING PROTOCOL Hematocrit Auto (Bld) [Volum e fraction]Ordered By: Basil Escobar on 07-27-2024 Hematocrit (Bld) [Volume fraction] 29.7 % Low 40-54 [facility] Hemoglobin A1con 07-27-2024 HbA1c (Bld) [Mass fraction] 11.0 % High 3.8-5.6 [facility] Comment on above: Result Comment: Norm al < 5.7 % Prediabetic 5.7 - 6.4 % Diabetic >or= 6.5 % Please note range changes. Performed By: #### L 501.9967 ####[facility] [address] [place], [place], [id number] Hemoglobin A1c percentageOrd ered By: Basil Escobar on 07-27-2024 HbA1c (Bld) [Mass fraction] 11.0 % High 3.8-5.6 [facility] Comment on above: Normal < 5.7 % Predi abetic 5.7 - 6.4 % Diabetic >or= 6.5 % Please note range changes. Hemoglobin measurementOrdere d By: Basil Escobar on 07-27-2024 Hemoglobin (Bld) [Mass/Vol] 9.0 g/dL Low 13.0-16. 5 [facility] Immature granulocytes/100 WB C Auto (Bld)Ordered By: Basil Escobar on 07-27-2024 Immature granulocytes/100 WBC (Bld) 0.400 % 0.0-0.9 [facility] Comment on above: IG% - Immature Granu locytes (promyelocytes, myelocytes and metamyelocytes) > 1% indicates that a LEFT SHIFT is Present. Lymphocytes Auto (Unsp spec) [#/Vol]Ordered By: Basil Escobar on 07-27-2024 Lymphocytes (Bld) [#/Vol] 0.52 10*3/uL Low 0.83-4.5 1 [facility] Lymphocytes/100 WBC Auto (Un sp spec)Ordered By: Basil Escobar on 07-27-2024 Lymphocytes/100 WBC (Bld) 3.0 % Low 19-41 [facility] MCV (mean corpuscular volume ) determinationOrdered By: Basil Escobar on 07-27-2024 MCV (RBC) [Entitic vol] 84.1 fL 80-94 [facility] Comment on above: Delta: 91.6 on 07/26 Mean corpuscular hemoglobin (MCH) determinationOrdered By: Basil Escobar on 07-27-2024 MCH (RBC) [Entitic mass] 25.5 pg Low 27.0-32.0 [facility] Mean corpuscular hemoglobin concentration (MCHC) determinationOrdered By: Basil Escobar on 07-27-2024 MCHC (RBC) [Mass/Vol] 30.3 g/dL Low 32-36 [facility] Comment on above: Delta: 32.6 on 07/26 Mean platelet volume determi nationOrdered By: Basil Escobar on 07-27-2024 Platelet mean volume (Bld) [Entitic vol] 10.1 fL 6.2-12.0 [facility] Monocyte percentageOrdered B y: Basil Escobar on 07-27-2024 Monocytes/100 WBC (Bld) 4.8 % 0-10 [facility] Neutrophil percentageOrdered By: Basil Escobar on 07-27-2024 Neutrophils/100 WBC (Bld) 91.4 % High 47-70 [facility] Nucleated red blood cell per centageOrdered By: Basil Escobar on 07-27-2024 Nucleated RBC/100 WBC (Bld) [Ratio] 0 % 0-5 [facility] Platelet countOrdered By: Akira Escobar on 07-27-2024 Platelets (Bld) [#/Vol] 236 10*3/uL 150-450 [facility] Potassium measurementOrdered By: Basil Escobar on 07-27-2024 Potassium [Moles/Vol] 4.1 mmol/L 3.5-5.1 [facility] RBC Auto (Bld) [#/Vol]Ordere d By: Basil Escobar on 07-27-2024 RBC (Bld) [#/Vol] 3.53 10*6/uL Low 4.6-6.2 [facility] Serum anion gap measurementO rdered By: Basil Escobar on 07-27-2024 Anion gap [Moles/Vol] 12 mmol/L 5-15 [facility] Serum or plasma calcium megan urement (mass/volume)Ordered By: Basil Escobar on 07-27-2024 Calcium [Mass/Vol] 8.6 mg/dL 8.5-10.1 [facility] Serum or plasma creatinine m easurement (mass/volume)Ordered By: Basil Escobar on 07-27-2024 Creatinine [Mass/Vol] 1.10 mg/dL 0.70-1.30 [facility] Comment on above: The validity of the calculated GFR & GFRAA in patients over 70 years has not been determined. Clinical correlation is essential. Serum or plasma urea nitroge n measurement (mass/volume)Ordered By: Basil Escobar on 07-27-2024 Urea nitrogen [Mass/Vol] 23 mg/dL High 7-18 [facility] Sodium levelOrdered By: Cherelle Escobar on 07-27-2024 Sodium [Moles/Vol] 140 mmol/L 136-145 [facility] White blood cell (WBC) count Ordered By: Basil Escobar on 07-27-2024 WBC (Bld) [#/Vol] 17.1 10*3/uL High 4.4-11.0 [facility] 12 Lead EKGon 07-26-2024 12 Lead EKG Normal [facility] Acetone Serumon 07-26-2024 ACETONE SERUM LARGE Abnormal NEG [facility] Comment on above: Order Comment: RESUL T(S) PREVIOUSLY REPORTED ON MANUAL REQUISITION DURINGDOWNTIME. Performed By: #### L 505.6140, L505.5000, L100.0100, L501.6900, L501.2450, L505.6100, L505.6200, L501.9100, L500.2500, L500.4100, L500.3400 ####[facility] [address] [place], [place], [id number] Acetone [Mass/Vol]Ordered By : Eloy Moore on 07-26-2024 Acetone Level LARGE High NEG [facility] Alcohol, Blood (Medical)-Ser umon 07-26-2024 SERUM ETOH < 3.0 Normal [facility] Comment on above: Order Comment: RESUL T(S) PREVIOUSLY REPORTED ON MANUAL REQUISITION DURINGDOWNTIME. Result Comment: The serum:whole blood ethanol ratio is approximately 1.14and varies slightly with hematocrit.Medical Alcohol reference interval and critical value innon-tolerant individuals; 50 - 100 Impairment 100 Intoxication 100 - 250 Severe Poisoning 250 - 400 Deep/possible fatal coma Performed By: #### L 505.6140, L505.5000, L100.0100, L501.6900, L501.2450, L505.6100, L505.6200, L501.9100, L500.2500, L500.4100, L500.3400 ####[facility] [address] [facility]. [place], [place], [id number] BUP Urine Drug Screenon BUP DRG SCREEN Negative Normal <10 ng/mL [facility] Comment on above: Order Comment: ORDER ED DURING DOWNTIME BY DR. MOORE IN ED.. Performed By: #### L 505.6140, L505.5000, L100.0100, L501.6900, L501.2450, L505.6100, L505.6200, L501.9100, L500.2500, L500.4100, L500.3400 ####[facility] [address] [facility] [place], [address] Base excess Calc (BldV) [Mol es/Vol]Ordered By: Basil Escobar on 07-26-2024 Blood Gas Base Excess -22 mmol/L Low -2-2 [facility] Venous Blood Base Excess -26 mmol/L Low -1.0-3.5 [facility] Basic Metabolic Profile (BMP )on 07-26-2024 BUN Normal 7-18 [facility] Comment on above: Order Comment: Call MD with results STAT Result Comment: OM R EQUESTED CANCELLATION Performed By: #### L 500.2500 ####[facility] [address] [place], [address] BUN/CRE Normal 10-20 [facility] Comment on above: Order Comment: Call MD with results STAT Result Comment: OM R EQUESTED CANCELLATION Performed By: #### L 500.2500 ####[facility] [address] [place], [address] CA,Total Normal 8.5-10.1 [facility] Comment on above: Order Comment: Call MD with results STAT Result Comment: OM R EQUESTED CANCELLATION Performed By: #### L 500.2500 ####[facility] [address] [place], [address] CL Normal 98-107 [facility] Comment on above: Order Comment: Call MD with results STAT Result Comment: OM R EQUESTED CANCELLATION Performed By: #### L 500.2500 ####[facility] [address] [place], [address] CO2 Normal 21.0-32.0 [facility] Comment on above: Order Comment: Call MD with results STAT Result Comment: OM R EQUESTED CANCELLATION Performed By: #### L 500.2500 ####[facility] [address] [place], [address] CREAT,SERUM Normal 0.70-1.30 [facility] Comment on above: Order Comment: Call MD with results STAT Result Comment: OM R EQUESTED CANCELLATION Performed By: #### L 500.2500 ####[facility] [address] [place], [address] EST GFR Normal >60 [facility] Comment on above: Order Comment: Call MD with results STAT Result Comment: OM R EQUESTED CANCELLATION Performed By: #### L 500.2500 ####[facility] [address] [place], [address] EST GFR - AA Normal >60 [facility] Comment on above: Order Comment: Call MD with results STAT Result Comment: OM R EQUESTED CANCELLATION Performed By: #### L 500.2500 ####[facility] [address] [place], [address] GAP Normal 5-15 [facility] Comment on above: Order Comment: Call MD with results STAT Result Comment: OM R EQUESTED CANCELLATION Performed By: #### L 500.2500 ####[facility] [address] [place], [address] GLU Normal 74-106 [facility] Comment on above: Order Comment: Call MD with results STAT Result Comment: OM R EQUESTED CANCELLATION Performed By: #### L 500.2500 ####[facility] [address] [place], [address] Potassium Normal 3.5-5.1 [facility] Comment on above: Order Comment: Call MD with results STAT Result Comment: OM R EQUESTED CANCELLATION Performed By: #### L 500.2500 ####[facility] [address] [place], [address] Basic Metabolic Profile (BMP) Normal 136-145 [facility] Comment on above: Order Comment: Call MD with results STAT Result Comment: OM R EQUESTED CANCELLATION Performed By: #### L 500.2500 ####[facility] [address] [place], [address] BUN/CRE 22.5 RATIO High 10-20 [facility] Comment on above: Order Comment: Call MD with results STAT Performed By: #### L 500.2500 ####[facility] [address] [place], [address] CA,Total 8.7 mg/dL Normal 8.5-10.1 [facility] Comment on above: Order Comment: Call MD with results STAT Performed By: #### L 500.2500 ####[facility] [address] [place], [address] Chloride [Moles/Vol] 108 mmol/L High 98-107 [facility] Comment on above: Order Comment: Call MD with results STAT Performed By: #### L 500.2500 ####[facility] [address] [place], [address] CO2 [Moles/Vol] 27.0 mmol/L Normal 21.0-32.0 [facility] Comment on above: Order Comment: Call MD with results STAT Performed By: #### L 500.2500 ####[facility] [address] [place], [address] Creatinine [Mass/Vol] 1.60 mg/dL High 0.70-1.30 [facility] Comment on above: Order Comment: Call MD with results STAT Result Comment: The validity of the calculated GFR GFRAA in patients over70 years has not been determined. Clinical correlation isessential. Performed By: #### L 500.2500 ####[facility] [address] [place], [address] ECRCL 74.77 ml/min Normal [facility] Comment on above: Order Comment: Call MD with results STAT Performed By: #### L 500.2500 ####[facility] [address] [place], [address] EST GFR - AA 66 mL/min Normal >60 [facility] Comment on above: Order Comment: Call MD with results STAT Result Comment: Afri can Surinamese GFR Calc Performed By: #### L 500.2500 ####[facility] [address] [place], [address] GAP 7 Normal 5-15 [facility] Comment on above: Order Comment: Call MD with results STAT Performed By: #### L 500.2500 ####[facility] [address] [place], [address] GFR/1.73 sq M.predicted among non-blacks MDRD (S/P/Bld) [Vol rate/Area] 55 mL/min/{1.73_m2} Low >60 [facility] Comment on above: Order Comment: Call MD with results STAT Result Comment: Non- GFR Calc Performed By: #### L 500.2500 ####[facility] [address] [place], [address] Glucose [Mass/Vol] 351 mg/dL High 74-106 [facility] Comment on above: Order Comment: Call MD with results STAT Result Comment: Gluc ose result greater than or equal to 200 mg/dLsuggests DIABETES MELLITUS per A.D.A. criteria. Performed By: #### L 500.2500 ####[facility] [address] [place], [address] Potassium [Moles/Vol] 3.9 mmol/L Normal 3.5-5.1 [facility] Comment on above: Order Comment: Call MD with results STAT Performed By: #### L 500.2500 ####[facility] [address] [place], [address] Sodium [Moles/Vol] 142 mmol/L Normal 136-145 [facility] Comment on above: Order Comment: Call MD with results STAT Performed By: #### L 500.2500 ####[facility] [address] [place], [address] Urea nitrogen [Mass/Vol] 36 mg/dL High 7-18 [facility] Comment on above: Order Comment: Call MD with results STAT Performed By: #### L 500.2500 ####[facility] [address] [place], [address] BUN/CRE 23.1 RATIO High 10-20 [facility] Comment on above: Order Comment: Call MD with results STAT Performed By: #### L 500.2500 ####[facility] [address] [place], [address] CA,Total 8.6 mg/dL Normal 8.5-10.1 [facility] Comment on above: Order Comment: Call MD with results STAT Performed By: #### L 500.2500 ####[facility] [address] [place], [address] Chloride [Moles/Vol] 107 mmol/L Normal 98-107 [facility] Comment on above: Order Comment: Call MD with results STAT Performed By: #### L 500.2500 ####[facility] [address] [place], [address] CO2 [Moles/Vol] 19.0 mmol/L Low 21.0-32.0 [facility] Comment on above: Order Comment: Call MD with results STAT Performed By: #### L 500.2500 ####[facility] [address] [place], [address] Creatinine [Mass/Vol] 1.86 mg/dL High 0.70-1.30 [facility] Comment on above: Order Comment: Call MD with results STAT Result Comment: The validity of the calculated GFR GFRAA in patients over70 years has not been determined. Clinical correlation isessential. Performed By: #### L 500.2500 ####[facility] [address] [place], [address] ECRCL 64.32 ml/min Normal [facility] Comment on above: Order Comment: Call MD with results STAT Performed By: #### L 500.2500 ####[facility] [address] [place], [address] EST GFR - AA 56 mL/min Low >60 [facility] Comment on above: Order Comment: Call MD with results STAT Result Comment: Afri can Surinamese GFR Calc Performed By: #### L 500.2500 ####[facility] [address] [place], [address] GAP 13 Normal 5-15 [facility] Comment on above: Order Comment: Call MD with results STAT Performed By: #### L 500.2500 ####[facility] [address] [place], [address] GFR/1.73 sq M.predicted among non-blacks MDRD (S/P/Bld) [Vol rate/Area] 46 mL/min/{1.73_m2} Low >60 [facility] Comment on above: Order Comment: Call MD with results STAT Result Comment: Non- GFR Calc Performed By: #### L 500.2500 ####[facility] [address] [place], [address] Glucose [Mass/Vol] 459 mg/dL Invalid Interpretation Code 74-106 [facility] Comment on above: Order Comment: Call MD with results STAT Result Comment: Crit ical Result(s) Called at: 14:33:29 07/26/2024 by:PRETTY ROBERT TO FANNY REAGAN. Results read back by same.Glucose result greater than or equal to 200 mg/dLsuggests DIABETES MELLITUS per A.D.A. criteria. Performed By: #### L 500.2500 ####[facility] [address] [place], [address] Potassium [Moles/Vol] 4.6 mmol/L Normal 3.5-5.1 [facility] Comment on above: Order Comment: Call MD with results STAT Performed By: #### L 500.2500 ####[facility] [address] [place], [address] Sodium [Moles/Vol] 139 mmol/L Normal 136-145 [facility] Comment on above: Order Comment: Call MD with results STAT Performed By: #### L 500.2500 ####[facility] [address] [place], [address] Urea nitrogen [Mass/Vol] 43 mg/dL High 7-18 [facility] Comment on above: Order Comment: Call MD with results STAT Performed By: #### L 500.2500 ####[facility] [address] [place], [address] BUN/CRE 20.0 RATIO Normal 10-20 [facility] Comment on above: Order Comment: Call MD with results STAT Performed By: #### L 500.2500, L500.3400, L501.9985 ####[facility] [address] [place], [address] CA,Total 8.5 mg/dL Normal 8.5-10.1 [facility] Comment on above: Order Comment: Call MD with results STAT Performed By: #### L 500.2500, L500.3400, L501.9985 ####[facility] [address] [place], [address] Chloride [Moles/Vol] 100 mmol/L Normal 98-107 [facility] Comment on above: Order Comment: Call MD with results STAT Performed By: #### L 500.2500, L500.3400, L501.9985 ####[facility] [address] [place], [address] CO2 [Moles/Vol] 8.0 mmol/L Invalid Interpretation Code 21.0-32.0 [facility] Comment on above: Order Comment: Call MD with results STAT Result Comment: Crit ical Result(s) Called at: 10:35:10 07/26/2024 by: Lawrence Reagan. Results read back by same. Performed By: #### L 500.2500, L500.3400, L501.9985 ####[facility] [address] [place], [address] Order Comment: RESUL T(S) PREVIOUSLY REPORTED ON MANUAL REQUISITION DURINGDOWNTIME. Performed By: #### L 505.6140, L505.5000, L100.0100, L501.6900, L501.2450, L505.6100, L505.6200, L501.9100, L500.2500, L500.4100, L500.3400 ####[facility] [address] [place], [address] Creatinine [Mass/Vol] 2.50 mg/dL High 0.70-1.30 [facility] Comment on above: Order Comment: Call MD with results STAT Result Comment: The validity of the calculated GFR GFRAA in patients over70 years has not been determined. Clinical correlation isessential. Performed By: #### L 500.2500, L500.3400, L501.9985 ####[facility] [address] [place], [address] ECRCL 47.85 ml/min Normal [facility] Comment on above: Order Comment: Call MD with results STAT Performed By: #### L 500.2500, L500.3400, L501.9985 ####[facility] [address] [place], [address] EST GFR - AA 39 mL/min Low >60 [facility] Comment on above: Order Comment: Call MD with results STAT Result Comment: Afri can Surinamese GFR Calc Performed By: #### L 500.2500, L500.3400, L501.9985 ####[facility] [address] [place], [address] GAP 26 High 5-15 [facility] Comment on above: Order Comment: Call MD with results STAT Performed By: #### L 500.2500, L500.3400, L501.9985 ####[facility] [address] [place], [address] GFR/1.73 sq M.predicted among non-blacks MDRD (S/P/Bld) [Vol rate/Area] 33 mL/min/{1.73_m2} Low >60 [facility] Comment on above: Order Comment: Call MD with results STAT Result Comment: Non- GFR Calc Performed By: #### L 500.2500, L500.3400, L501.9985 ####[facility] [address] [place], [address] Glucose [Mass/Vol] 727 mg/dL Invalid Interpretation Code 74-106 [facility] Comment on above: Order Comment: Call MD with results STAT Result Comment: Crit ical Result(s) Called at: 10:35:10 07/26/2024 by: Lawrence to Fanny Reagan. Results read back by same.Glucose result greater than or equal to 200 mg/dLsuggests DIABETES MELLITUS per A.D.A. criteria. Performed By: #### L 500.2500, L500.3400, L501.9985 ####[facility] [address] [place], [address] Potassium [Moles/Vol] 5.4 mmol/L High 3.5-5.1 [facility] Comment on above: Order Comment: Call MD with results STAT Performed By: #### L 500.2500, L500.3400, L501.9985 ####[facility] [address] [place], [address] Sodium [Moles/Vol] 134 mmol/L Low 136-145 [facility] Comment on above: Order Comment: Call MD with results STAT Performed By: #### L 500.2500, L500.3400, L501.9985 ####[facility] [address] [place], [address] Urea nitrogen [Mass/Vol] 50 mg/dL High 7-18 [facility] Comment on above: Order Comment: Call MD with results STAT Performed By: #### L 500.2500, L500.3400, L501.9985 ####[facility] [address] [place], [address] BUN/CRE 15.5 RATIO Normal 10-20 [facility] Comment on above: Order Comment: RESUL T(S) PREVIOUSLY REPORTED ON MANUAL REQUISITION DURINGDOWNTIME. Performed By: #### L 505.6140, L505.5000, L100.0100, L501.6900, L501.2450, L505.6100, L505.6200, L501.9100, L500.2500, L500.4100, L500.3400 ####[facility] [address] [place] [place], [address] CA,Total 9.7 mg/dL Normal 8.5-10.1 [facility] Comment on above: Order Comment: RESUL T(S) PREVIOUSLY REPORTED ON MANUAL REQUISITION DURINGDOWNTIME. Performed By: #### L 505.6140, L505.5000, L100.0100, L501.6900, L501.2450, L505.6100, L505.6200, L501.9100, L500.2500, L500.4100, L500.3400 ####[facility] [address] [place], [address] Chloride [Moles/Vol] 88 mmol/L Low 98-107 [facility] Comment on above: Order Comment: RESUL T(S) PREVIOUSLY REPORTED ON MANUAL REQUISITION DURINGDOWNTIME. Performed By: #### L 505.6140, L505.5000, L100.0100, L501.6900, L501.2450, L505.6100, L505.6200, L501.9100, L500.2500, L500.4100, L500.3400 ####[facility] [address] [place], [address] Creatinine [Mass/Vol] 2.97 mg/dL High 0.70-1.30 [facility] Comment on above: Order Comment: RESUL T(S) PREVIOUSLY REPORTED ON MANUAL REQUISITION DURINGDOWNTIME. Result Comment: The validity of the calculated GFR GFRAA in patients over70 years has not been determined. Clinical correlation isessential. Performed By: #### L 505.6140, L505.5000, L100.0100, L501.6900, L501.2450, L505.6100, L505.6200, L501.9100, L500.2500, L500.4100, L500.3400 ####[facility] [address] [place], [place], [phone] ECRCL 40.28 ml/min Normal [facility] Comment on above: Order Comment: RESUL T(S) PREVIOUSLY REPORTED ON MANUAL REQUISITION DURINGDOWNTIME. Performed By: #### L 505.6140, L505.5000, L100.0100, L501.6900, L501.2450, L505.6100, L505.6200, L501.9100, L500.2500, L500.4100, L500.3400 ####[facility] [address] [place], [address] EST GFR - AA 33 mL/min Low >60 [facility] Comment on above: Order Comment: RESUL T(S) PREVIOUSLY REPORTED ON MANUAL REQUISITION DURINGDOWNTIME. Performed By: #### L 505.6140, L505.5000, L100.0100, L501.6900, L501.2450, L505.6100, L505.6200, L501.9100, L500.2500, L500.4100, L500.3400 ####[facility] [address] [place], [place], [phone] GAP 32 High 5-15 [facility] Comment on above: Order Comment: RESUL T(S) PREVIOUSLY REPORTED ON MANUAL REQUISITION DURINGDOWNTIME. Performed By: #### L 505.6140, L505.5000, L100.0100, L501.6900, L501.2450, L505.6100, L505.6200, L501.9100, L500.2500, L500.4100, L500.3400 ####[facility] [address] [place], [place], [id number] GFR/1.73 sq M.predicted among non-blacks MDRD (S/P/Bld) [Vol rate/Area] 27 mL/min/{1.73_m2} Low >60 [facility] Comment on above: Order Comment: RESUL T(S) PREVIOUSLY REPORTED ON MANUAL REQUISITION DURINGDOWNTIME. Performed By: #### L 505.6140, L505.5000, L100.0100, L501.6900, L501.2450, L505.6100, L505.6200, L501.9100, L500.2500, L500.4100, L500.3400 ####[facility] [address] [place], [place], [phone] Glucose [Mass/Vol] 914 mg/dL Invalid Interpretation Code 74-106 [facility] Comment on above: Order Comment: RESUL T(S) PREVIOUSLY REPORTED ON MANUAL REQUISITION DURINGDOWNTIME. Result Comment: Crit ical Result(s) Called at: 06:57:42 07/26/2024 by: Mercedes bhatt [facility]. Results read back by same.Glucose result greater than or equal to 200 mg/dLsuggests DIABETES MELLITUS per A.D.A. criteria. Performed By: #### L 505.6140, L505.5000, L100.0100, L501.6900, L501.2450, L505.6100, L505.6200, L501.9100, L500.2500, L500.4100, L500.3400 ####[facility] [address] [place], [place], [phone] Potassium [Moles/Vol] 6.1 mmol/L Invalid Interpretation Code 3.5-5.1 [facility] Comment on above: Order Comment: RESUL T(S) PREVIOUSLY REPORTED ON MANUAL REQUISITION DURINGDOWNTIME. Result Comment: Crit ical Result(s) Called at: 06:57:42 07/26/2024 by: Mercedes bhatt [facility]. Results read back by same. Performed By: #### L 505.6140, L505.5000, L100.0100, L501.6900, L501.2450, L505.6100, L505.6200, L501.9100, L500.2500, L500.4100, L500.3400 ####[facility] [address] [place], [address] Sodium [Moles/Vol] 128 mmol/L Low 136-145 [facility] Comment on above: Order Comment: RESUL T(S) PREVIOUSLY REPORTED ON MANUAL REQUISITION DURINGDOWNTIME. Performed By: #### L 505.6140, L505.5000, L100.0100, L501.6900, L501.2450, L505.6100, L505.6200, L501.9100, L500.2500, L500.4100, L500.3400 ####[facility] [address] [place], [address] Urea nitrogen [Mass/Vol] 46 mg/dL High 7-18 [facility] Comment on above: Order Comment: RESUL T(S) PREVIOUSLY REPORTED ON MANUAL REQUISITION DURINGDOWNTIME. Performed By: #### L 505.6140, L505.5000, L100.0100, L501.6900, L501.2450, L505.6100, L505.6200, L501.9100, L500.2500, L500.4100, L500.3400 ####[facility] [address] [place], [address] Bedside Glucoseon 07-26-2024 FINGERSTICK GLU 224 mg/dL High 74-106 [facility] Comment on above: Result Comment: ETHEL GEMENT OF PATIENT CARE PER NURSING PROTOCOL Performed By: #### L 501.080 ####[facility] [address] [place], [address] FINGERSTICK GLU 251 mg/dL High 74-106 [facility] Comment on above: Result Comment: ETHEL GEMENT OF PATIENT CARE PER NURSING PROTOCOL Performed By: #### L 501.080 ####[facility] [address] [place], [address] FINGERSTICK GLU 251 mg/dL High -106 [facility] Comment on above: Result Comment: ETHEL GEMENT OF PATIENT CARE PER NURSING PROTOCOL Performed By: #### L 501.080 ####[facility] [address] [place], [address] FINGERSTICK GLU 283 mg/dL High 74-[address] [place] [address] Comment on above: Result Comment: ETHEL GEMENT OF PATIENT CARE PER NURSING PROTOCOL Performed By: #### L 501.080 ####[facility] [address] [place], [address] FINGERSTICK GLU 309 mg/dL High [address] [place] [address] Comment on above: Result Comment: ETHEL GEMENT OF PATIENT CARE PER NURSING PROTOCOL Performed By: #### L 501.080 ####[facility] [address] [place], [address] FINGERSTICK GLU 380 mg/dL High [address] [place] [address] Comment on above: Result Comment: ETHEL GEMENT OF PATIENT CARE PER NURSING PROTOCOL Performed By: #### L 501.080 ####[facility] [address] [place], [address] FINGERSTICK GLU 393 mg/dL High -[address] [place] [address] Comment on above: Result Comment: ETHEL GEMENT OF PATIENT CARE PER NURSING PROTOCOL Performed By: #### L 501.080 ####[facility] [address] [place], [address] FINGERSTICK GLU 419 mg/dL High [address] [place] [address] Comment on above: Result Comment: ETHEL GEMENT OF PATIENT CARE PER NURSING PROTOCOL Performed By: #### L 501.080 ####[facility] [address] [place], [address] FINGERSTICK GLU 428 mg/dL High [address] [place] [address] Comment on above: Result Comment: ETHEL GEMENT OF PATIENT CARE PER NURSING PROTOCOL Performed By: #### L 501.080 ####[facility] [address] [place], [address] FINGERSTICK GLU 473 mg/dL Invalid Interpretation Code [address] [place] [address] Comment on above: Result Comment: Dr Blaine bella FollowedMANAGEMENT OF PATIENT CARE PER NURSING PROTOCOL Performed By: #### L 501.080 ####[facility] [address] [place], [address] FINGERSTICK GLU > 500 Invalid Interpretation Code [address] [place] [address] Comment on above: Result Comment: Dr Blaine bella FollowedMANAGEMENT OF PATIENT CARE PER NURSING PROTOCOL Performed By: #### L 501.080 ####[facility] [address] [place], [address] FINGERSTICK GLU > 500 Invalid Interpretation Code [address] [place] [address] Comment on above: Result Comment: ETHEL GEMENT OF PATIENT CARE PER NURSING PROTOCOL Performed By: #### L 501.080 ####[facility] [address] [place], [address] FINGERSTICK GLU > 500 Invalid Interpretation Code [address] [place] [address] Comment on above: Result Comment: Dr Blaine bella FollowedMANAGEMENT OF PATIENT CARE PER NURSING PROTOCOL Performed By: #### L 501.080 ####[facility] [address] [place], [address] Bilirubin Test strip Ql (U)O rdered By: Basil Escobar on 07-26-2024 Bilirubin Ql (U) Negative Negative [facility] Bilirubin directOrdered By: Basil Escobar on 07-26-2024 Bilirubin.direct [Mass/Vol] 0.14 mg/dL 0.00-0.3 0 [facility] Bilirubin, totalOrdered By: Basil Escobar on 07-26-2024 Bilirubin [Mass/Vol] 0.50 mg/dL 0.20-1.00 [facility] Comment on above: For patients on eltr ombopag therapy, use of Dimension [place] TBIL is not recommended. Blood Gases by [facility] 024 Base excess Calc (Bld) [Moles/Vol] -22 mmol/L Low -2 to +2 [facility] Comment on above: Performed By: #### L 9000.0800 ####[facility] [address] [place], [address] Blood Gas Type ART [facility] Comment on above: Performed By: #### L 9000.0800 ####[facility] [address] [place], [address] CO2 [Moles/Vol] 8 mmol/L [facility] Comment on above: Performed By: #### L 9000.0800 ####[facility] [address] [place], [address] FI02 21.0 [facility] Comment on above: Performed By: #### L 9000.0800 ####[facility] [address] [place], [address] HCO3 (Bld) [Moles/Vol] 7.0 mmol/L Low 22-26 [facility] Comment on above: Performed By: #### L 9000.0800 ####[facility] [address] [place], [address] Mode Not entered [facility] Comment on above: Performed By: #### L 9000.0800 ####[facility] [address] [place], [address] O2 Delivery Dev Not entered [facility] Comment on above: Performed By: #### L 9000.0800 ####[facility] [address] [place], [address] pCO2 19.5 mmHg Low 35-45 [facility] Comment on above: Performed By: #### L 9000.0800 ####[facility] [address] [place], [address] pH (Bld) 7.16 [pH] Invalid Interpretation Code 7.35-7.45 [facility] Comment on above: Performed By: #### L 9000.0800 ####[facility] [address] [place], [address] PO2 127 mmHG High 75-100 [facility] Comment on above: Performed By: #### L 9000.0800 ####[facility] [address] [place], [address] Read Back By Yes [facility] Comment on above: Performed By: #### L 9000.0800 ####[facility] [address] [place], [address] Results To [facility] Comment on above: Performed By: #### L 9000.0800 ####[facility] [address] [place], [address] SITE L Brach Normal [facility] Comment on above: Performed By: #### L 9000.0800 ####[facility] [address] [place], [address] SO2 98 Normal 95-99 [facility] Comment on above: Performed By: #### L 9000.0800 ####[facility] [address] [place], [address] Time Given 09:28:56 [facility] Comment on above: Performed By: #### L 9000.0800 ####[facility] [address] [place], [address] Blood bicarbonate measuremen tOrdered By: Basil Escobar on 07-26-2024 Blood Gas Bicarbonate Actual 7.0 mmol/L Low - [facility] CO2 (BldV) [Moles/Vol]Ordere d By: Basil Escobar on 07-26-2024 CO2 [Moles/Vol] 7 mmol/L Low 23-33 [facility] CO2 (BldV) [Partial pressure ]Ordered By: Basil Escobar on 07-26-2024 Bed Mix Venous Bld PCO2 at Pat Temp 24.0 mmHg Low 41-51 [facility] Chest 1 Viewon 07-26-2024 Chest 1 View Normal [facility] Determination of fraction of inspired oxygenOrdered By: Basil Escobar on 07-26-2024 Blood Gas Oxygen Percent 21.0 [facility] Emergency Department Summary on 07-26-2024 Emergency Department Summary Normal [facility] Epithelial cells.squamous LM Ql (Urine sed)Ordered By: Basil Escobar on 07-26-2024 Epithelial cells.squamous LM.HPF (Urine sed) [#/Area] 0 /[HPF] 0-5 [facility] Glucoseon 07-26-2024 Glucose [Mass/Vol] 830 mg/dL Invalid Interpretation Code 74-106 [facility] Comment on above: Result Comment: Crit ical Result(s) Called at: 09:38:08 07/26/2024 by: Lawrence Reagan. Results read back by same.Glucose result greater than or equal to 200 mg/dLsuggests DIABETES MELLITUS per A.D.A. criteria. Performed By: #### L 501.0100 ####[facility] [address] [place], [place], [id number] Glucose Ql (U)Ordered By: Akira Escobar on 07-26-2024 Glucose (U) [Mass/Vol] 1000 mg/dL High Normal [facility] H AND P Exam - Hospitaliston 07-26-2024 H&P Exam - Hospitalist Normal [facility] Hemoglobin A1con 07-26-2024 HbA1c (Bld) [Mass fraction] 10.5 % High 3.8-5.6 [facility] Comment on above: Result Comment: Norm al < 5.7 % Prediabetic 5.7 - 6.4 % Diabetic >or= 6.5 % Please note range changes. Performed By: #### L 500.2500, L500.3400, L501.9985 ####[facility] [address] [place], [place], [phone] High density lipoprotein (HD L) measurementOrdered By: Eloy Moore on 07-26-2024 Cholesterol in HDL [Mass/Vol] 65 mg/dL Normal [facility] Comment on above: The drugs N-Acetylcy steine and Metamizole may falsely depress this assay. Reference Range HDL <40 mg/dL Low HDL Cholesterol HDL >or= 60 mg/dL High HDL Cholesterol Order Comment: RESUL T(S) PREVIOUSLY REPORTED ON MANUAL REQUISITION DURINGDOWNTIME. Result Comment: The drugs N-Acetylcysteine and Metamizole may falselydepress this assay. Reference Range HDL <40 mg/dL Low HDL Cholesterol HDL >or= 60 mg/dL High HDL Cholesterol Performed By: #### L 505.6140, L505.5000, L100.0100, L501.6900, L501.2450, L505.6100, L505.6200, L501.9100, L500.2500, L500.4100, L500.3400 ####[facility] [address] [place], [place], [id number] Ketones Test strip Ql (U)Ord ered By: Basil Escobar on 07-26-2024 Ketones Ql (U) 150 mg/dl Abnormal Negative [facility] Comment on above: CRITICAL VALUE *H Laboratory - Chemistry and C hemistry - challengeOrdered By: Basil Escobar on 07-26-2024 AST [Catalytic activity/Vol] 18 U/L 15-37 [facility] Lipase measurementOrdered By : Eloy Moore on 07-26-2024 Lipase [Catalytic activity/Vol] 93 U/L High 13-75 [facility] Comment on above: Please note:LIPASE r evised reference range effective 22. New Lipase methodology. Expected to produce lower values than the previous assay method. NEW Reference Range: 13 - 75 U/L Order Comment: RESUL T(S) PREVIOUSLY REPORTED ON MANUAL REQUISITION DURINGDOWNTIME. Result Comment: Hellen delgadillo note:LIPASE revised reference range effective 22.New Lipase methodology. Expected to produce lower valuesthan the previous assay method.NEW Reference Range: 13 - 75 U/L Performed By: #### L 505.6140, L505.5000, L100.0100, L501.6900, L501.2450, L505.6100, L505.6200, L501.9100, L500.2500, L500.4100, L500.3400 ####[facility] [address] [place], [address] Lipid Profileon 07-26-2024 Cholesterol in VLDL [Mass/Vol] 34 mg/dL Normal 5-40 [facility] Comment on above: Order Comment: RESUL T(S) PREVIOUSLY REPORTED ON MANUAL REQUISITION DURINGDOWNTIME. Performed By: #### L 505.6140, L505.5000, L100.0100, L501.6900, L501.2450, L505.6100, L505.6200, L501.9100, L500.2500, L500.4100, L500.3400 ####[facility] [address] [place], [address] Liver Profileon 07-26-2024 Albumin [Mass/Vol] 3.5 g/dL Normal 3.2-5.0 [facility] Comment on above: Order Comment: Call MD with results STAT Performed By: #### L 500.2500, L500.3400, L501.9985 ####[facility] [address] [place], [address] ALK P 106 U/L Normal 45-117 [facility] Comment on above: Order Comment: Call MD with results STAT Performed By: #### L 500.2500, L500.3400, L501.9985 ####[facility] [address] [place], [address] ALT [Catalytic activity/Vol] 27 U/L Normal 16-61 [facility] Comment on above: Order Comment: Call MD with results STAT Performed By: #### L 500.2500, L500.3400, L501.9985 ####[facility] [address] [place], [address] AST [Catalytic activity/Vol] 18 U/L Normal 15-37 [facility] Comment on above: Order Comment: Call MD with results STAT Performed By: #### L 500.2500, L500.3400, L501.9985 ####[facility] [address] [place], [address] Bilirubin [Mass/Vol] 0.50 mg/dL Normal 0.20-1.00 [facility] Comment on above: Order Comment: Call MD with results STAT Result Comment: For patients on eltrombopag therapy, use of Dimension [place] TBIL is not recommended. Performed By: #### L 500.2500, L500.3400, L501.9985 ####[facility] [address] [place], [address] Bilirubin.direct [Mass/Vol] 0.14 mg/dL Normal 0.00-0.3 0 [facility] Comment on above: Order Comment: Call MD with results STAT Performed By: #### L 500.2500, L500.3400, L501.9985 ####[facility] [address] [place], [address] Globulin (S) [Mass/Vol] 3.4 g/dL Normal 2.2-4.[address] [facility] Comment on above: Order Comment: Call MD with results STAT Performed By: #### L 500.2500, L500.3400, L501.9985 ####[facility] [address] [place], [address] T PROT 6.9 g/dL Normal 6.4-8.2 [facility] Comment on above: Order Comment: Call MD with results STAT Performed By: #### L 500.2500, L500.3400, L501.9985 ####[facility] [address] [place], [address] Albumin [Mass/Vol] 4.1 g/dL Normal 3.2-5.0 [facility] Comment on above: Order Comment: RESUL T(S) PREVIOUSLY REPORTED ON MANUAL REQUISITION DURINGDOWNTIME. Performed By: #### L 505.6140, L505.5000, L100.0100, L501.6900, L501.2450, L505.6100, L505.6200, L501.9100, L500.2500, L500.4100, L500.3400 ####[facility] [address] [place], [address] ALK P 127 U/L High 45-117 [facility] Comment on above: Order Comment: RESUL T(S) PREVIOUSLY REPORTED ON MANUAL REQUISITION DURINGDOWNTIME. Performed By: #### L 505.6140, L505.5000, L100.0100, L501.6900, L501.2450, L505.6100, L505.6200, L501.9100, L500.2500, L500.4100, L500.3400 ####[facility] [address] [place], [address] ALT [Catalytic activity/Vol] 30 U/L Normal 16-61 [facility] Comment on above: Order Comment: RESUL T(S) PREVIOUSLY REPORTED ON MANUAL REQUISITION DURINGDOWNTIME. Performed By: #### L 505.6140, L505.5000, L100.0100, L501.6900, L501.2450, L505.6100, L505.6200, L501.9100, L500.2500, L500.4100, L500.3400 ####[facility] [address] [place], [address] AST [Catalytic activity/Vol] 19 U/L Normal 15-37 [facility] Comment on above: Order Comment: RESUL T(S) PREVIOUSLY REPORTED ON MANUAL REQUISITION DURINGDOWNTIME. Performed By: #### L 505.6140, L505.5000, L100.0100, L501.6900, L501.2450, L505.6100, L505.6200, L501.9100, L500.2500, L500.4100, L500.3400 ####[facility] [address] [place], [place], [phone] Bilirubin [Mass/Vol] 0.60 mg/dL Normal 0.20-1.00 [facility] Comment on above: Order Comment: RESUL T(S) PREVIOUSLY REPORTED ON MANUAL REQUISITION DURINGDOWNTIME. Result Comment: For patients on eltrombopag therapy, use of Dimension [place] TBIL is not recommended. Performed By: #### L 505.6140, L505.5000, L100.0100, L501.6900, L501.2450, L505.6100, L505.6200, L501.9100, L500.2500, L500.4100, L500.3400 ####[facility] [address] [place], [address](146) Bilirubin.direct [Mass/Vol] 0.19 mg/dL Normal 0.00-0.3 0 [facility] Comment on above: Order Comment: RESUL T(S) PREVIOUSLY REPORTED ON MANUAL REQUISITION DURINGDOWNTIME. Performed By: #### L 505.6140, L505.5000, L100.0100, L501.6900, L501.2450, L505.6100, L505.6200, L501.9100, L500.2500, L500.4100, L500.3400 ####[facility] [address] [place], [address](646) Globulin (S) [Mass/Vol] 4.0 g/dL Normal 2.2-4.2 [facility] Comment on above: Order Comment: RESUL T(S) PREVIOUSLY REPORTED ON MANUAL REQUISITION DURINGDOWNTIME. Performed By: #### L 505.6140, L505.5000, L100.0100, L501.6900, L501.2450, L505.6100, L505.6200, L501.9100, L500.2500, L500.4100, L500.3400 ####[facility] [address] [place], [address] T PROT 8.1 g/dL Normal 6.4-8.2 [facility] Comment on above: Order Comment: RESUL T(S) PREVIOUSLY REPORTED ON MANUAL REQUISITION DURINGDOWNTIME. Performed By: #### L 505.6140, L505.5000, L100.0100, L501.6900, L501.2450, L505.6100, L505.6200, L501.9100, L500.2500, L500.4100, L500.3400 ####[facility] [address] [place], [place], [phone]) Low density lipoprotein (LDL ) cholesterol measurementOrdered By: Eloy Moore on 07-26-2024 Cholesterol in LDL [Mass/Vol] 84 mg/dL Normal 0-130 [facility] Comment on above: Order Comment: RESUL T(S) PREVIOUSLY REPORTED ON MANUAL REQUISITION DURINGDOWNTIME. Performed By: #### L 505.6140, L505.5000, L100.0100, L501.6900, L501.2450, L505.6100, L505.6200, L501.9100, L500.2500, L500.4100, L500.3400 ####[facility] [address] [place], [place], [phone] Magnesiumon 07-26-2024 Magnesium [Mass/Vol] 2.6 mg/dL Normal 1.6-2.6 [facility] Comment on above: Performed By: #### L 501.5200, L501.2300, L501.7300 ####[facility] [address] [place], [address] Magnesium measurementOrdered By: Basil Escobar on 07-26-2024 Magnesium [Mass/Vol] 2.6 mg/dL 1.6-2.6 [facility] Methadone, urineOrdered By: Eloy Moore on 07-26-2024 Urine Methadone Screen Negative < 300 ng/mL [facility] Microscopic analysis of urin e for red blood cells (RBC)Ordered By: Basil Escobar on 07-26-2024 Urine RBC 0 SEEN /hpf 0-5 [facility] Mucus LM Ql (Urine sed)Order ed By: Basil Escobar on 07-26-2024 Mucus Ql (Urine sed) 0 SEEN /hpf [facility] Nitrite Test strip Ql (U)Ord ered By: Basil Escobar on 07-26-2024 Nitrite Ql (U) Negative Negative [facility] No Panel InformationOrdered By: Eloy Moore on 07-26-2024 Urine Drug Screen Comment [facility] Comment on above: *Additional results available. Contact laboratory/see report*CONFIRMATORY TESTING FOR ALL POSITIVE URINE DRUG SCREENRESULTS WILL ONLY BE SENT OUT UPON PHYSICIAN ORDER. The results of Urine Drug Screen methods provide only preliminary analytical test results. A more specific alternate chemical method must be used in order to obtain a confirmed analytical result. Gas chromatography/mass spectrometery (GC/MS) is the preferred confirmatory method. Clinical consideration and professional judgement should be applied to any drug of abuse test result, particularly whenpreliminary positive results are used. No Panel InformationOrdered By: Basil Escobar on 07-26-2024 Bld Gas Crit Called To/Read Back By Yes [facility] Blood Gas Notified Time 09:28:[address] [facility] Blood Gas Notified Whom alida [facility] Blood Gas Sample Site Patty Fuentes [facility] Blood Gas Specimen Type ART [facility] Blood Gas Vent Mode Not entered [facility] Oxygen Delivery Device Not entered [facility] Osmolality, Serumon 07-26-20 24 OSMOLALITY,SER 347 mOsm/KG High 275-295 [facility] Comment on above: Order Comment: Comme nts: If not done in the EDComments: Add to ER Lab draw Performed By: #### L 501.5200, L501.2300, L501.7300 ####[facility] [address] [place], [address] Osmolality, serumOrdered By: Basil Escobar on 07-26-2024 Serum Osmolality 347 mOsm/KG High 275-295 [facility] Oxycodone Urine Drug Screeno n 07-26-2024 OXY DRG SCREEN Negative Normal <100 ng/mL [facility] Comment on above: Order Comment: ORDER ED DURING DOWNTIME BY DR. MOORE IN ED.. Performed By: #### L 505.6140, L505.5000, L100.0100, L501.6900, L501.2450, L505.6100, L505.6200, L501.9100, L500.2500, L500.4100, L500.3400 ####[facility] [address] [place], [address] Oxygen (BldV) [Partial press ure]Ordered By: Basil Escobar on 07-26-2024 Venous Blood Partial Pressure O2 105 mmHg High 25-40 [facility] Oxygen saturation measuremen tOrdered By: Basil Escobar on 07-26-2024 Blood Gas Oxygen Saturation 98 % 95-99 [facility] Partial pressure of carbon d ioxide measurementOrdered By: Basil Escobar on 07-26-2024 Arterial Blood Partial Pressure CO2 19.5 mmHg Low 35-45 [facility] Partial pressure of oxygen m easurementOrdered By: Basil Escobar on 07-26-2024 Arterial Blood Partial Pressure O2 127 mmHG High 75-100 [facility] Pathologist review Trung (Unsp spec) [Interp]Ordered By: Eloy Moore on 07-26-2024 Differential Pathologist's Review Reviewed [facility] Comment on above: Previous reported re sult: Lola ayon Edited by: ELIZABETH on 07/27/24:1440Neutrophilic leukocytosis.MILD Thrombocytosis.Clinical correlation suggested.Zander Stroud D.O. 07/27/24 AMENDED REPORT 07/27/24 1440 PATH REV previously reported as: Lola ayon Phosphoruson 07-26-2024 Phosphate [Mass/Vol] 5.6 mg/dL High 2.5-4.9 [facility] Comment on above: Performed By: #### L 501.5200, L501.2300, L501.7300 ####[facility] [address] [place], [address] Phosphorus measurementOrdere d By: Basil Escobar on 07-26-2024 Phosphorus Level 5.6 mg/dL High 2.5-4.9 [facility] Protein Test strip Ql (U)Ord ered By: Basil Escobar on 07-26-2024 Protein Ql (U) 15 mg/dl High Negative [facility] Quantitative urine opiates m easurementOrdered By: Eloy Moore on 07-26-2024 Opiates Ql (U) Negative < 300 ng/mL [facility] Screening buprenorphine megan urementOrdered By: Eloy Moore on 07-26-2024 Urine Buprenorphine Screen Negative <10 ng/mL [facility] Screening oxycodone measurem entOrdered By: Eloy Moore on 07-26-2024 Urine Oxycodone Screen Negative <100 ng/mL [facility] Serum ethanol measurementOrd ered By: Eloy Moore on 07-26-2024 Ethyl Alcohol Level < 3.0 mg/dL [facility] Comment on above: The serum:whole bloo d ethanol ratio is approximately 1.14and varies slightly with hematocrit. Medical Alcohol reference interval and critical value innon-tolerant individuals; 50 - 100 Impairment 100 Intoxication 100 - 250 Severe Poisoning 250 - 400 Deep/possible fatal coma Serum globulin measurementOr dered By: Basil Escobar on 07-26-2024 Globulin (S) [Mass/Vol] 3.4 g/dL 2.2-4.2 [facility] Serum or plasma alanine perez otransferase (ALT) measurementOrdered By: Basil Escobar on 07-26-2024 ALT [Catalytic activity/Vol] 27 U/L 16-61 [facility] Serum or plasma albumin megan urement (mass/volume)Ordered By: Basil Escobar on 07-26-2024 Albumin [Mass/Vol] 3.5 g/dL 3.2-5.0 [facility] Serum or plasma alkaline emilio sphatase measurementOrdered By: Basil Escobar on 07-26-2024 ALP [Catalytic activity/Vol] 106 U/L 45-117 [facility] Serum or plasma cholesterol measurement (mass/volume)Ordered By: Eloy Moore on 07-26-2024 Cholesterol [Mass/Vol] 183 mg/dL Normal 200 [facility] Comment on above: <200 mg/dL Desirable 200-240 mg/dL Borderline >240 mg/dL High Risk Order Comment: RESUL T(S) PREVIOUSLY REPORTED ON MANUAL REQUISITION DURINGDOWNTIME. Result Comment: <200 mg/dL Desirable 200-240 mg/dL Borderline >240 mg/dL High Risk Performed By: #### L 505.6140, L505.5000, L100.0100, L501.6900, L501.2450, L505.6100, L505.6200, L501.9100, L500.2500, L500.4100, L500.3400 ####[facility] [address] [place], [place], [phone] [facility] Urine Drug Screenon [facility] Ur Drug Scn Negative Normal <1000 ng/mL [facility] Comment on above: Order Comment: ORDER ED DURING DOWNTIME BY DR. MOORE IN ED.. Performed By: #### L 505.6140, L505.5000, L100.0100, L501.6900, L501.2450, L505.6100, L505.6200, L501.9100, L500.2500, L500.4100, L500.3400 ####[facility] [address] [place], [place], [phone] DRUG CONFIRM Normal [facility] Comment on above: Order Comment: ORDER ED DURING DOWNTIME BY DR. MOORE IN ED.. Result Comment: CONF IRMATORY TESTING FOR ALL POSITIVE URINE DRUG SCREENRESULTS WILL ONLY BE SENT OUT UPON PHYSICIAN ORDER.The results of Urine Drug Screen methods provide onlypreliminary analytical test results. A more specificalternate chemical method must be used in order to obtain aconfirmed analytical result. Gas chromatography/massspectrometery (GC/MS) is the preferred confirmatory method.Clinical consideration and professional judgement should beapplied to any drug of abuse test result, particularly whenpreliminary positive results are used. Performed By: #### L 505.6140, L505.5000, L100.0100, L501.6900, L501.2450, L505.6100, L505.6200, L501.9100, L500.2500, L500.4100, L500.3400 ####[facility] [address] [place], [place], [phone] Total carbon dioxide measure mentOrdered By: Basil Escobar on 07-26-2024 Blood Gas Total CO2 8 mmol/L [facility] Total proteinOrdered By: Hugo Escobar on 07-26-2024 Protein [Mass/Vol] 6.9 g/dL 6.4-8.2 [facility] Tricyclic antidepressant scr een urOrdered By: Eloy Moore on 07-26-2024 Tricyclic Antidepressants Screen Negative <1000 ng/mL [facility] Triglycerides measurementOrd ered By: Eloy Moore on 07-26-2024 Triglyceride [Mass/Vol] 168 mg/dL Normal [facility] Comment on above: The drugs N-Acetylcy steine and Metamizole may falsely depress this assay.Serum Triglycerides Reference Interval Normal <150 mg/dL Borderline high 150 - 199 mg/dL High 200 - 499 mg/dL Very High > or = 500 mg/dL Order Comment: RESUL T(S) PREVIOUSLY REPORTED ON MANUAL REQUISITION DURINGDOWNTIME. Result Comment: The drugs N-Acetylcysteine and Metamizole may falselydepress this assay.Serum Triglycerides Reference Interval Normal <150 mg/dL Borderline high 150 - 199 mg/dL High 200 - 499 mg/dL Very High > or = 500 mg/dL Performed By: #### L 505.6140, L505.5000, L100.0100, L501.6900, L501.2450, L505.6100, L505.6200, L501.9100, L500.2500, L500.4100, L500.3400 ####[facility] [address] [place], [place], [phone] Urinalysis, Completeon 07-26 KETONE UR 150 mg/dl Abnormal Negative [facility] Comment on above: Order Comment: Urine , Random Result Comment: CRIT ICAL VALUE *H Performed By: #### L 400.0001 ####[facility] [address] [place], [address] BILIRUBIN URINE Negative Normal Negative [facility] Comment on above: Order Comment: Urine , Random Performed By: #### L 400.0001 ####[facility] [address] [place], [address] Clarity (U) Clear Normal Clear [facility] Comment on above: Order Comment: Urine , Random Performed By: #### L 400.0001 ####[facility] [address] [place], [address] Color (U) Straw Normal Yellow [facility] Comment on above: Order Comment: Urine , Random Performed By: #### L 400.0001 ####[facility] [address] [place], [address] GLUCOSE, UR 1000 mg/dl Abnormal Normal [facility] Comment on above: Order Comment: Urine , Random Performed By: #### L 400.0001 ####[facility] [address] [place], [address] LEUK ESTERASE Negative Normal Negative [facility] Comment on above: Order Comment: Urine , Random Performed By: #### L 400.0001 ####[facility] [address] [place], [address] Nitrite Ql (U) Negative Normal Negative [facility] Comment on above: Order Comment: Urine , Random Performed By: #### L 400.0001 ####[facility] [address] [place], [address] OCCULT BLOOD-UR Negative Normal Negative [facility] Comment on above: Order Comment: Urine , Random Performed By: #### L 400.0001 ####[facility] [address] [place], [address] pH UR 5.0 Normal 5.0 - 8.0 [facility] Comment on above: Order Comment: Urine , Random Performed By: #### L 400.0001 ####[facility] [address] [place], [address] PROT DIPSTX 15 mg/dl Abnormal Negative [facility] Comment on above: Order Comment: Urine , Random Performed By: #### L 400.0001 ####[facility] [address] [place], [address] SP.GR. DIPSTX 1.020 Normal 1.002-1.030 [facility] Comment on above: Order Comment: Urine , Random Performed By: #### L 400.0001 ####[facility] [address] [place], [address] UROBILI Normal Normal Normal [facility] Comment on above: Order Comment: Urine , Random Performed By: #### L 400.0001 ####[facility] [address] [place], [address] BACTERIA 0 SEEN Normal None Seen [facility] Comment on above: Order Comment: Urine , Random Performed By: #### L 400.0001 ####[facility] [address] [place], [address] EPI,SQUAMOUS 0 SEEN Normal 0-5 [facility] Comment on above: Order Comment: Urine , Random Performed By: #### L 400.0001 ####[facility] [address] [place], [address] Mucus Ql (Urine sed) 0 SEEN Normal [facility] Comment on above: Order Comment: Urine , Random Performed By: #### L 400.0001 ####[facility] [address] [place], [address] RBC 0 SEEN Normal 0-5 [facility] Comment on above: Order Comment: Urine , Random Performed By: #### L 400.0001 ####[facility] [address] [place], [place], [phone] WBC 0 SEEN Normal 0-5 [facility] Comment on above: Order Comment: Urine , Random Performed By: #### L 400.0001 ####[facility] [address] [place], [place], [phone] Urine Drug Screen (VISTA)on 07-26-2024 AMPHETAMINES Negative Normal <1000 ng/mL [facility] Comment on above: Order Comment: ORDER ED DURING DOWNTIME BY DR. MOORE IN ED.. Performed By: #### L 505.6140, L505.5000, L100.0100, L501.6900, L501.2450, L505.6100, L505.6200, L501.9100, L500.2500, L500.4100, L500.3400 ####[facility] [address] [place], [place], [phone] BARBITIURATES Negative Normal < 200 ng/mL [facility] Comment on above: Order Comment: ORDER ED DURING DOWNTIME BY DR. MOORE IN ED.. Performed By: #### L 505.6140, L505.5000, L100.0100, L501.6900, L501.2450, L505.6100, L505.6200, L501.9100, L500.2500, L500.4100, L500.3400 ####[facility] [address] [place], [place], [phone] BENZODIAZIPINE Negative Normal < 200 ng/mL [facility] Comment on above: Order Comment: ORDER ED DURING DOWNTIME BY DR. MOORE IN ED.. Performed By: #### L 505.6140, L505.5000, L100.0100, L501.6900, L501.2450, L505.6100, L505.6200, L501.9100, L500.2500, L500.4100, L500.3400 ####[facility] [address] [place], [place], [phone] COCAINE Positive Abnormal < 300 ng/mL [facility] Comment on above: Order Comment: ORDER ED DURING DOWNTIME BY DR. MOORE IN ED.. Performed By: #### L 505.6140, L505.5000, L100.0100, L501.6900, L501.2450, L505.6100, L505.6200, L501.9100, L500.2500, L500.4100, L500.3400 ####[facility] [address] [place], [place], [phone] ECSTACY Negative Normal < 500 ng/mL [facility] Comment on above: Order Comment: ORDER ED DURING DOWNTIME BY DR. MOORE IN ED.. Performed By: #### L 505.6140, L505.5000, L100.0100, L501.6900, L501.2450, L505.6100, L505.6200, L501.9100, L500.2500, L500.4100, L500.3400 ####[facility] [address] [place], [place], [id number] METHADONE Negative Normal < 300 ng/mL [facility] Comment on above: Order Comment: ORDER ED DURING DOWNTIME BY DR. MOORE IN ED.. Performed By: #### L 505.6140, L505.5000, L100.0100, L501.6900, L501.2450, L505.6100, L505.6200, L501.9100, L500.2500, L500.4100, L500.3400 ####[facility] [address] [place], [address] OPIATES Negative Normal < 300 ng/mL [facility] Comment on above: Order Comment: ORDER ED DURING DOWNTIME BY DR. MOORE IN ED.. Performed By: #### L 505.6140, L505.5000, L100.0100, L501.6900, L501.2450, L505.6100, L505.6200, L501.9100, L500.2500, L500.4100, L500.3400 ####[facility] [address] [place], [place], [phone] PCP Negative Normal < 25 ng/mL [facility] Comment on above: Order Comment: ORDER ED DURING DOWNTIME BY DR. MOORE IN ED.. Performed By: #### L 505.6140, L505.5000, L100.0100, L501.6900, L501.2450, L505.6100, L505.6200, L501.9100, L500.2500, L500.4100, L500.3400 ####[facility] [address] [place], [place], [phone] THC Negative Normal < 50 ng/mL [facility] Comment on above: Order Comment: ORDER ED DURING DOWNTIME BY DR. MOORE IN ED.. Performed By: #### L 505.6140, L505.5000, L100.0100, L501.6900, L501.2450, L505.6100, L505.6200, L501.9100, L500.2500, L500.4100, L500.3400 ####[facility] [address] [place], [place], [phone] VISTA UDS PH 4 Normal [facility] Comment on above: Order Comment: ORDER ED DURING DOWNTIME BY DR. MOORE IN ED.. Performed By: #### L 505.6140, L505.5000, L100.0100, L501.6900, L501.2450, L505.6100, L505.6200, L501.9100, L500.2500, L500.4100, L500.3400 ####[facility] [address] [place], [place], [phone] Urine amphetamine measuremen tOrdered By: Eloy Moore on 07-26-2024 Amphetamines Ql (U) Negative <1000 ng/mL [facility] Urine barbiturates measureme ntOrdered By: Eloy Moore on 07-26-2024 Urine Barbiturates Screen Negative < 200 ng/m L [facility] Urine benzodiazepine levelOr dered By: Eloy Moore on 07-26-2024 Benzodiazepines Ql (U) Negative < 200 ng/mL [facility] Urine blood detectionOrdered By: Basil Escobar on 07-26-2024 Urine Occult Blood Negative Negative [facility] Urine clarityOrdered By: Hugo Escobar on 07-26-2024 Clarity (U) Clear Clear [facility] Urine cocaine levelOrdered B y: Eloy Moore on 07-26-2024 Cocaine Ql (U) Positive High < 300 ng/mL [facility] Urine color determinationOrd ered By: Basil Escobar on 07-26-2024 Color (U) Straw Yellow [facility] Urine mwola-1-wzcgrfkqygccrc abinol (THC) measurementOrdered By: Eloy Moore on 07-26-2024 Cannabinoids Screen Ql (U) Negative < 50 ng/m L [facility] Urine leukocyte esterase det ection by dipstickOrdered By: Basil Escobar on 07-26-2024 Leukocyte esterase Test strip Ql (U) Negative Negative [facility] Urine methylenedioxymethamph etamine (MDMA) measurementOrdered By: Eloy Moore on 07-26-2024 MDMA (Ecstasy) Screen Negative < 500 ng/mL [facility] Urine pHOrdered By: Basil Escobar on 07-26-2024 pH (U) 5.0 [pH] 5.0 - 8.0 [facility] Urine phencyclidine (PCP) de tectionOrdered By: Eloy Moore on 07-26-2024 Phencyclidine Ql (U) Negative < 25 ng/mL [facility] Urine sediment bacteria coun t by microscopy (number/high power field)Ordered By: Basil Escobar on 07-26-2024 Bacteria LM.HPF (Urine sed) [#/Area] 0 /[HPF] None Seen [facility] Urine specific gravity measu rementOrdered By: Basil Escobar on 07-26-2024 Specific gravity (U) [Rel density] 1.020 1.002-1.030 [facility] Urobilinogen Ql (U)Ordered B y: Basil Escobar on 07-26-2024 Urine Urobilinogen Normal mg/dl Normal [facility] Venous Blood Gason 4 Blood Gas Type CHET [facility] Comment on above: Performed By: #### L 9000.0810 ####[facility] [address] [place], [address] CO2 [Moles/Vol] 7 mmol/L Low 23-33 [facility] Comment on above: Performed By: #### L 9000.0810 ####[facility] [address] [place], [address] HCO3 (Bld) [Moles/Vol] 6 mmol/L Low 22-26 [facility] Comment on above: Performed By: #### L 9000.0810 ####[facility] [address] [place], [address] O2 Delivery Dev Room Air [facility] Comment on above: Performed By: #### L 9000.0810 ####[facility] [address] [place], [address] Read Back By Yes [facility] Comment on above: Performed By: #### L 9000.0810 ####[facility] [address] [place], [address] Moore [facility] Comment on above: Performed By: #### L 9000.0810 ####[facility] [address] [place], [address] SITE Not entered [facility] Comment on above: Performed By: #### L 9000.0810 ####[facility] [address] [place], [address] Time Given 06:14:15 [facility] Comment on above: Performed By: #### L 9000.0810 ####[facility] [address] [place], [address] VBG BE -26 mmol/L Low -1.0-3.5 [facility] Comment on above: Performed By: #### L 9000.0810 ####[facility] [address] [place], [address] VBG pCO2 24.0 mmHg Low 41-51 [facility] Comment on above: Performed By: #### L 9000.0810 ####[facility] [address] [place], [address] VBG pH 6.99 Invalid Interpretation Code 7.32-7.42 [facility] Comment on above: Performed By: #### L 9000.0810 ####[facility] [address] [place], [address] VBG PO2 105 mmHg High 25-40 [facility] Comment on above: Performed By: #### L 9000.0810 ####[facility] [address] [place], [address] VBG SO2 94 High 50-70 [facility] Comment on above: Performed By: #### L 9000.0810 ####[facility] [address] [place] [id number] Venous blood bicarbonate harshil surementOrdered By: Basil Escobar on 07-26-2024 HCO3 (Bld) [Moles/Vol] 6 mmol/L Low 22-26 [facility] Venous blood oxygen saturati on measurementOrdered By: Basil Escobar on 07-26-2024 Oxygen saturation in Blood 94 % High 50-70 [facility] Very low density lipoprotein (VLDL) cholesterol measurementOrdered By: Eloy Moore on 07-26-2024 VLDL Cholesterol 34 mg/dL 5-40 [facility] White blood cell countOrdere d By: Basil Escobar on 07-26-2024 Urine WBC 0 SEEN /hpf 0-5 [facility] pH (BldV)Ordered By: Basil Escobar on 07-26-2024 Venous Blood pH 6.99 Low 7.32-7.42 [facility] pH (Unsp spec)Ordered By: Akira Escobar on 07-26-2024 Blood Gas pH 7.16 Low 7.35-7.45 [facility] BASIC METABOLIC PANELon 04-23 Anion gap [Moles/Vol] 13 mmol/L Normal 10-20 [facility] Comment on above: Order Comment: [facility] has implemented the eGFR calculation approach that does not have a coefficient for race that conforms to the NKF-ASN Task Force Recommendations. Performed By: #### 4 6966 #### LAB [address] [place] [address] Garrett Maloney M.D. [id number] Calcium [Mass/Vol] 8.3 mg/dL Low 8.4-10.2 [facility] Comment on above: Order Comment: [facility] has implemented the eGFR calculation approach that does not have a coefficient for race that conforms to the NKF-ASN Task Force Recommendations. Performed By: #### 4 6983 #### LAB [address] [place], [place] [address] Garrett Maloney M.D. [id number] Chloride [Moles/Vol] 106 mmol/L Normal 98-108 [facility] Comment on above: Order Comment: [facility] has implemented the eGFR calculation approach that does not have a coefficient for race that conforms to the NKF-ASN Task Force Recommendations. Performed By: #### 4 6932 #### LAB [address] [place], [place] [address] Garrett Maloney M.D. [id number] Creatinine [Mass/Vol] 0.71 mg/dL Normal 0.50-1.30 [facility] Comment on above: Order Comment: [facility] has implemented the eGFR calculation approach that does not have a coefficient for race that conforms to the NKF-ASN Task Force Recommendations. Performed By: #### 4 6922 #### LAB [address] [place] [address] Garrett Maloney M.D. [id number] EGFR 128 mL/min/1.73 m2 Normal >=60 [facility] Comment on above: Order Comment: [facility] has implemented the eGFR calculation approach that does not have a coefficient for race that conforms to the NKF-ASN Task Force Recommendations. Result Comment: Gabrielle mated GFR was calculated using the 2020 CKD-EPI creatinine equation. Performed By: #### 4 6932 #### LAB [address] [place] [address] Garrett Maloney M.D. [id number] Glucose [Mass/Vol] 188 mg/dL High 65-99 [facility] Comment on above: Order Comment: [facility] has implemented the eGFR calculation approach that does not have a coefficient for race that conforms to the NKF-ASN Task Force Recommendations. Performed By: #### 4 6932 #### LAB [address] [place] [address] Garrett Maloney M.D. [id number] HCO3 (Bld) [Moles/Vol] 25 mmol/L Normal 21-32 [facility] Comment on above: Order Comment: [facility] has implemented the eGFR calculation approach that does not have a coefficient for race that conforms to the NKF-ASN Task Force Recommendations. Performed By: #### 4 6927 #### LAB [address] [place] [address] Garrett Maloney M.D. [id number] Potassium [Moles/Vol] 3.7 mmol/L Normal 3.5-5.1 [facility] Comment on above: Order Comment: [facility] has implemented the eGFR calculation approach that does not have a coefficient for race that conforms to the NKF-ASN Task Force Recommendations. Result Comment: Slig htly Hemolyzed Performed By: #### 4 6903 #### LAB [address] [place] [address] Garrett Maloney M.D. [id number] Sodium [Moles/Vol] 140 mmol/L Normal 135-145 [facility] Comment on above: Order Comment: [facility] Laboratory [facility] has implemented the eGFR calculation approach that does not have a coefficient for race that conforms to the NKF-ASN Task Force Recommendations. Performed By: #### 4 6932 #### LAB [address] [place], [place] [address] Garrett Maloney M.D. [id number] Urea nitrogen [Mass/Vol] 11 mg/dL Normal 8-25 [facility] Comment on above: Order Comment: [facility] Laboratory [facility] has implemented the eGFR calculation approach that does not have a coefficient for race that conforms to the NKF-ASN Task Force Recommendations. Performed By: #### 4 6932 #### LAB [address] [place] [address] Garrett Maloney M.D. [id number] Urea nitrogen/Creatinine [Mass ratio] 15.5 mg/mg Normal 10.0-20.0 [facility] Comment on above: Order Comment: [facility] Laboratory [facility] has implemented the eGFR calculation approach that does not have a coefficient for race that conforms to the NKF-ASN Task Force Recommendations. Performed By: #### 4 6932 #### LAB [address] [place], [place] [address] Garrett Maloney M.D. [id number] Anion gap [Moles/Vol] 13 mmol/L Normal 10-20 [facility] Comment on above: Order Comment: [facility] Laboratory [facility] has implemented the eGFR calculation approach that does not have a coefficient for race that conforms to the NKF-ASN Task Force Recommendations. Performed By: #### 4 6124 #### LAB [address] [place], [place] [address] Garrett Maloney M.D. [id number] Calcium [Mass/Vol] 8.3 mg/dL Low 8.4-10.2 [facility] Comment on above: Order Comment: [facility] Laboratory [facility] has implemented the eGFR calculation approach that does not have a coefficient for race that conforms to the NKF-ASN Task Force Recommendations. Performed By: #### 4 6132 #### LAB [address] [place] [id number] Garrett Maloney M.D. [id number] Chloride [Moles/Vol] 106 mmol/L Normal 98-108 [facility] Comment on above: Order Comment: [facility] has implemented the eGFR calculation approach that does not have a coefficient for race that conforms to the NKF-ASN Task Force Recommendations. Performed By: #### 4 6124 #### LAB [address] [place] [address] Garrett Maloney M.D. [id number] Creatinine [Mass/Vol] 0.86 mg/dL Normal 0.50-1.30 [facility] Comment on above: Order Comment: [facility] has implemented the eGFR calculation approach that does not have a coefficient for race that conforms to the NKF-ASN Task Force Recommendations. Performed By: #### 4 6124 #### LAB [address] [place] [address] Garrett Malnoey M.D. [id number] EGFR 121 mL/min/1.73 m2 Normal >=60 [facility] Comment on above: Order Comment: [facility] Laboratory [facility] has implemented the eGFR calculation approach that does not have a coefficient for race that conforms to the NKF-ASN Task Force Recommendations. Result Comment: Gabrielle mated GFR was calculated using the 2020 CKD-EPI creatinine equation. Performed By: #### 4 6124 #### LAB [address] [place] [address] Garrett Maloney M.D. [id number] Glucose [Mass/Vol] 267 mg/dL High 65-99 [facility] Comment on above: Order Comment: [facility] has implemented the eGFR calculation approach that does not have a coefficient for race that conforms to the NKF-ASN Task Force Recommendations. Performed By: #### 4 6124 #### LAB [address] [place] [address] Garrett Maloney M.D. [id number] HCO3 (Bld) [Moles/Vol] 23 mmol/L Normal 21-32 [facility] Comment on above: Order Comment: [facility] has implemented the eGFR calculation approach that does not have a coefficient for race that conforms to the NKF-ASN Task Force Recommendations. Performed By: #### 4 6124 ####[facility] LAB [address] [place] [id number] Garrett Maloney M.D. [id number] Potassium [Moles/Vol] 4.3 mmol/L Normal 3.5-5.1 [facility] Comment on above: Order Comment: [facility] has implemented the eGFR calculation approach that does not have a coefficient for race that conforms to the NKF-ASN Task Force Recommendations. Result Comment: Slig htly Hemolyzed Performed By: #### 4 6124 ####[facility] LAB [address] [place] [address] Garrett Maloney M.D. [id number] Sodium [Moles/Vol] 138 mmol/L Normal 135-145 [facility] Comment on above: Order Comment: [facility] Services has implemented the eGFR calculation approach that does not have a coefficient for race that conforms to the NKF-ASN Task Force Recommendations. Performed By: #### 4 6124 #### LAB [address] [place] [address] Garrett Maloney M.D. [id number] Urea nitrogen [Mass/Vol] 11 mg/dL Normal 8-25 [facility] Comment on above: Order Comment: [facility] Services has implemented the eGFR calculation approach that does not have a coefficient for race that conforms to the NKF-ASN Task Force Recommendations. Performed By: #### 4 6124 ####[facility] LAB [address] [place] [address] Garrett Maloney M.D. [id number] Urea nitrogen/Creatinine [Mass ratio] 12.8 mg/mg Normal 10.0-20.0 [facility] Comment on above: Order Comment: [facility] has implemented the eGFR calculation approach that does not have a coefficient for race that conforms to the NKF-ASN Task Force Recommendations. Performed By: #### 4 6181 ####[facility] LAB [address] [place] [id number] Garrett Maloney M.D. [id number] BETA-HYDROXYBUTYRATEon 05-02 BETA-HYDROXYBUTYRATE 0.4 mmol/L High 0.0-0.3 [facility] Comment on above: Performed By: #### 4 5139 #### LAB [address] [place] [address] Garrett Maloney M.D. [id number] BETA-HYDROXYBUTYRATE 1.2 mmol/L High 0.0-0.3 [facility] Comment on above: Performed By: #### 4 6932 #### LAB [address] [place] [address] Garrett Maloney M.D. [id number] MAGNESIUM LEVELon 05-02-2024 Magnesium [Mass/Vol] 1.8 mg/dL Normal 1.6-2.4 [facility] Comment on above: Performed By: #### 4 6109 #### LAB [address] [place] [address] Garrett Maloney M.D. [id number] Magnesium [Mass/Vol] 1.8 mg/dL Normal 1.6-2.4 [facility] Comment on above: Performed By: #### 4 6109 #### LAB [address] [place] [address] Garrett Maloney M.D. [id number] PHOSPHORUSon 05-02-2024 Phosphate [Mass/Vol] 2.8 mg/dL Normal 2.7-4.5 [facility] Comment on above: Performed By: #### 4 6299 #### LAB [address] [place] [address] Garrett Maloney M.D. [id number] Phosphate [Mass/Vol] 2.2 mg/dL Low 2.7-4.5 [facility] Comment on above: Performed By: #### 4 6299 #### LAB [address] [place] [address] Garrett Maloney M.D. [id number] POC GLUCOSE - [facility] 09-10-2 024 Glucose [Mass/Vol] 165 mg/dL High [address] [place] [address] Comment on above: Performed By: #### 4 6932 #### [facility] LAB [address] [place] [address] Garrett Maloney M.D. [id number] Glucose [Mass/Vol] 203 mg/dL [address] Comment on above: Performed By: #### 4 6932 ####[facility] LAB [address] [place] [address] Garrett Maloney M.D. [id number] Glucose [Mass/Vol] 178 mg/dL High [address] [place] [address] Comment on above: Performed By: #### 4 6932 #### LAB [address] [place] [address] Garrett Maloney M.D. [id number] Glucose [Mass/Vol] 186 mg/dL [address] Comment on above: Performed By: #### 4 6932 #### LAB [address] [place] [address] Garrett Maloney M.D. [id number] Glucose [Mass/Vol] 187 mg/dL [address] Comment on above: Performed By: #### 4 6932 #### LAB [address] [place] [address] Garrett Maloney M.D. [id number] POTASSIUM LEVELon 05-02-2024 Potassium [Moles/Vol] 4.8 mmol/L Normal 3.5-5.1 [facility] Comment on above: Result Comment: Slig htly Hemolyzed Performed By: #### 4 6932 #### LAB [address] [place] [address] Garrett Maloney M.D. [id number] BASIC METABOLIC PANELon Anion gap [Moles/Vol] 14 mmol/L Normal 10-20 [facility] Comment on above: Order Comment: [facility] Services has implemented the eGFR calculation approach that does not have a coefficient for race that conforms to the NKF-ASN Task Force Recommendations. Performed By: #### 4 6932 #### LAB [address] [place] [address] Garrett Maloney M.D. [id number] Calcium [Mass/Vol] 8.0 mg/dL Low 8.4-10.2 [facility] Comment on above: Order Comment: [facility] Services has implemented the eGFR calculation approach that does not have a coefficient for race that conforms to the NKF-ASN Task Force Recommendations. Performed By: #### 4 6932 #### LAB [address] [place] [address] Garrett Maloney M.D. [id number] Chloride [Moles/Vol] 106 mmol/L Normal 98-108 [facility] Comment on above: Order Comment: [facility] Services has implemented the eGFR calculation approach that does not have a coefficient for race that conforms to the NKF-ASN Task Force Recommendations. Performed By: #### 4 6932 #### LAB [address] [place] [address] Garrett Maloney M.D. [id number] Creatinine [Mass/Vol] 0.77 mg/dL Normal 0.50-1.30 [facility] Comment on above: Order Comment: [facility] Laboratory [facility] has implemented the eGFR calculation approach that does not have a coefficient for race that conforms to the NKF-ASN Task Force Recommendations. Performed By: #### 4 6932 #### LAB [address] [place] [address] Garrett Maloney M.D. [id number] EGFR 125 mL/min/1.73 m2 Normal >=60 [facility] Comment on above: Order Comment: [facility] Services has implemented the eGFR calculation approach that does not have a coefficient for race that conforms to the NKF-ASN Task Force Recommendations. Result Comment: Gabrielle mated GFR was calculated using the 2020 CKD-EPI creatinine equation. Performed By: #### 4 6932 #### LAB [address] [place] [address] Garrett Maloney M.D. [id number] Glucose [Mass/Vol] 111 mg/dL High 65-99 [facility] Comment on above: Order Comment: [facility] Services has implemented the eGFR calculation approach that does not have a coefficient for race that conforms to the NKF-ASN Task Force Recommendations. Performed By: #### 4 6932 #### LAB [address] [place] [address] Garrett Maloney M.D. [id number] HCO3 (Bld) [Moles/Vol] 22 mmol/L Normal 21-32 [facility] Comment on above: Order Comment: [facility] Laboratory [facility] has implemented the eGFR calculation approach that does not have a coefficient for race that conforms to the NKF-ASN Task Force Recommendations. Performed By: #### 4 6985 #### LAB [address] [place] [address] Garrett Maloney M.D. [id number] Potassium [Moles/Vol] 3.5 mmol/L Normal 3.5-5.1 [facility] Comment on above: Order Comment: [facility] Laboratory [facility] has implemented the eGFR calculation approach that does not have a coefficient for race that conforms to the NKF-ASN Task Force Recommendations. Performed By: #### 4 6957 #### LAB [address] [place] [address] Garrett Maloney M.D. [id number] Sodium [Moles/Vol] 138 mmol/L Normal 135-145 [facility] Comment on above: Order Comment: [facility] Laboratory [facility] has implemented the eGFR calculation approach that does not have a coefficient for race that conforms to the NKF-ASN Task Force Recommendations. Performed By: #### 4 6921 #### [facility] LAB [address] [place] [address] Garrett Maloney M.D. [id number] Urea nitrogen [Mass/Vol] 10 mg/dL Normal 8-25 [facility] Comment on above: Order Comment: [facility] Laboratory [facility] has implemented the eGFR calculation approach that does not have a coefficient for race that conforms to the NKF-ASN Task Force Recommendations. Performed By: #### 4 6936 #### LAB [address] [place] [address] Garrett Maloney M.D. [id number] Urea nitrogen/Creatinine [Mass ratio] 13.0 mg/mg Normal 10.0-20.0 [facility] Comment on above: Order Comment: [facility] Services has implemented the eGFR calculation approach that does not have a coefficient for race that conforms to the NKF-ASN Task Force Recommendations. Performed By: #### 4 6932 #### LAB [address] [place] [address] Garrett Maloney M.D. [id number] Anion gap [Moles/Vol] 11 mmol/L Normal 10-20 [facility] Comment on above: Order Comment: Injur y/Trauma or Illness?:Illness/Other How long have you had these symptoms (acute/chronic)?:Acute Reason for exam?:sob, hyperglycemia History of cancer?:NA Surgeries, chemotherapy, or radiation?:NA Type of Exam?:Initial Additional signs and symptoms?:. Performed By: #### 4 6124 #### LAB [address] [place] [address] Garrett Maloney M.D. [id number] Calcium [Mass/Vol] 8.1 mg/dL Low 8.4-10.2 [facility] Comment on above: Order Comment: Injur y/Trauma or Illness?:Illness/Other How long have you had these symptoms (acute/chronic)?:Acute Reason for exam?:sob, hyperglycemia History of cancer?:NA Surgeries, chemotherapy, or radiation?:NA Type of Exam?:Initial Additional signs and symptoms?:. Performed By: #### 4 6124 #### LAB [address] [place] [address] Garrett Maloney M.D. [id number] Chloride [Moles/Vol] 106 mmol/L Normal 98-108 [facility] Comment on above: Order Comment: Injur y/Trauma or Illness?:Illness/Other How long have you had these symptoms (acute/chronic)?:Acute Reason for exam?:sob, hyperglycemia History of cancer?:NA Surgeries, chemotherapy, or radiation?:NA Type of Exam?:Initial Additional signs and symptoms?:. Performed By: #### 4 6130 #### LAB [address] [place] [address] Garrett Malnoey M.D. [id number] Creatinine [Mass/Vol] 0.75 mg/dL Normal 0.50-1.30 [facility] Comment on above: Order Comment: Injur y/Trauma or Illness?:Illness/Other How long have you had these symptoms (acute/chronic)?:Acute Reason for exam?:sob, hyperglycemia History of cancer?:NA Surgeries, chemotherapy, or radiation?:NA Type of Exam?:Initial Additional signs and symptoms?:. Performed By: #### 4 6124 #### LAB [address] [place] [address] Garrett Maloney M.D. [id number] EGFR 126 mL/min/1.73 m2 Normal >=60 [facility] Comment on above: Order Comment: Injur y/Trauma or Illness?:Illness/Other How long have you had these symptoms (acute/chronic)?:Acute Reason for exam?:sob, hyperglycemia History of cancer?:NA Surgeries, chemotherapy, or radiation?:NA Type of Exam?:Initial Additional signs and symptoms?:. Result Comment: Gabrielle mated GFR was calculated using the 2020 CKD-EPI creatinine equation. Performed By: #### 4 6174 #### LAB [address] [place] [address] Garrett Maloney M.D. [id number] Glucose [Mass/Vol] 102 mg/dL High 65-99 [facility] Comment on above: Order Comment: Injur y/Trauma or Illness?:Illness/Other How long have you had these symptoms (acute/chronic)?:Acute Reason for exam?:sob, hyperglycemia History of cancer?:NA Surgeries, chemotherapy, or radiation?:NA Type of Exam?:Initial Additional signs and symptoms?:. Performed By: #### 4 6188 #### LAB [address] [place] [address] Garrett Maloney M.D. [id number] HCO3 (Bld) [Moles/Vol] 23 mmol/L Normal 21-32 [facility] Comment on above: Order Comment: Injur y/Trauma or Illness?:Illness/Other How long have you had these symptoms (acute/chronic)?:Acute Reason for exam?:sob, hyperglycemia History of cancer?:NA Surgeries, chemotherapy, or radiation?:NA Type of Exam?:Initial Additional signs and symptoms?:. Performed By: #### 4 6124 #### LAB [address] [place] [address] Garrett Maloney M.D. [id number] Potassium [Moles/Vol] 3.4 mmol/L Low 3.5-5.1 [facility] Comment on above: Order Comment: Injur y/Trauma or Illness?:Illness/Other How long have you had these symptoms (acute/chronic)?:Acute Reason for exam?:sob, hyperglycemia History of cancer?:NA Surgeries, chemotherapy, or radiation?:NA Type of Exam?:Initial Additional signs and symptoms?:. Performed By: #### 4 6124 #### LAB [address] [place] [address] Garrett Maloney M.D. [id number] Sodium [Moles/Vol] 137 mmol/L Normal 135-145 [facility] Comment on above: Order Comment: Injur y/Trauma or Illness?:Illness/Other How long have you had these symptoms (acute/chronic)?:Acute Reason for exam?:sob, hyperglycemia History of cancer?:NA Surgeries, chemotherapy, or radiation?:NA Type of Exam?:Initial Additional signs and symptoms?:. Performed By: #### 4 6124 #### LAB [address] [place] [address] Garrett Maloney M.D. [id number] Urea nitrogen [Mass/Vol] 12 mg/dL Normal 8-25 [facility] Comment on above: Order Comment: Injur y/Trauma or Illness?:Illness/Other How long have you had these symptoms (acute/chronic)?:Acute Reason for exam?:sob, hyperglycemia History of cancer?:NA Surgeries, chemotherapy, or radiation?:NA Type of Exam?:Initial Additional signs and symptoms?:. Performed By: #### 4 6183 #### LAB [address] [place] [address] Garrett Maloney M.D. [id number] Urea nitrogen/Creatinine [Mass ratio] 16.0 mg/mg Normal 10.0-20.0 [facility] Comment on above: Order Comment: Injur y/Trauma or Illness?:Illness/Other How long have you had these symptoms (acute/chronic)?:Acute Reason for exam?:sob, hyperglycemia History of cancer?:NA Surgeries, chemotherapy, or radiation?:NA Type of Exam?:Initial Additional signs and symptoms?:. Performed By: #### 4 6124 #### LAB [address] [place] [address] Garrett Maloney M.D. [id number] Anion gap [Moles/Vol] 11 mmol/L Normal 10-20 [facility] Comment on above: Order Comment: [facility] Services has implemented the eGFR calculation approach that does not have a coefficient for race that conforms to the NKF-ASN Task Force Recommendations. Performed By: #### 4 6124 #### LAB [address] [place] [address] Garrett Maloney M.D. [id number] Calcium [Mass/Vol] 8.4 mg/dL Normal 8.4-10.2 [facility] Comment on above: Order Comment: [facility] Services has implemented the eGFR calculation approach that does not have a coefficient for race that conforms to the NKF-ASN Task Force Recommendations. Performed By: #### 4 6124 ####[facility] [address] [address] Garrett Maloney M.D. [id number] Chloride [Moles/Vol] 104 mmol/L Normal 98-108 [facility] Comment on above: Order Comment: [facility] Laboratory Services has implemented the eGFR calculation approach that does not have a coefficient for race that conforms to the NKF-ASN Task Force Recommendations. Performed By: #### 4 6124 ####[facility] [address] [address] Garrett Maloney M.D. [id number] Creatinine [Mass/Vol] 0.80 mg/dL Normal 0.50-1.30 [facility] Comment on above: Order Comment: [facility] Laboratory Services has implemented the eGFR calculation approach that does not have a coefficient for race that conforms to the NKF-ASN Task Force Recommendations. Performed By: #### 4 6199 #### LAB [address] [address] Garrett Maloney M.D. [id number] EGFR 124 mL/min/1.73 m2 Normal >=60 [facility] Comment on above: Order Comment: [facility] Laboratory Services has implemented the eGFR calculation approach that does not have a coefficient for race that conforms to the NKF-ASN Task Force Recommendations. Result Comment: Gabrielle mated GFR was calculated using the 2020 CKD-EPI creatinine equation. Performed By: #### 4 6167 #### LAB [address] [address] Garrett Maloney M.D. [id number] Glucose [Mass/Vol] 195 mg/dL High 65-99 [facility] Comment on above: Order Comment: [facility] Laboratory [facility] has implemented the eGFR calculation approach that does not have a coefficient for race that conforms to the NKF-ASN Task Force Recommendations. Performed By: #### 4 6174 #### LAB [address] [address] Garrett Maloney M.D. [id number] HCO3 (Bld) [Moles/Vol] 23 mmol/L Normal 21-32 [facility] Comment on above: Order Comment: [facility] Laboratory [facility] has implemented the eGFR calculation approach that does not have a coefficient for race that conforms to the NKF-ASN Task Force Recommendations. Performed By: #### 4 6175 ####[facility] [address] [place], [place] [address] Garrett Maloney M.D. [id number] Potassium [Moles/Vol] 3.6 mmol/L Normal 3.5-5.1 [facility] Comment on above: Order Comment: [facility] Laboratory Services has implemented the eGFR calculation approach that does not have a coefficient for race that conforms to the NKF-ASN Task Force Recommendations. Performed By: #### 4 6102 ####[facility] [address] [id number] Garrett Maloney M.D. [id number] Sodium [Moles/Vol] 134 mmol/L Low 135-145 [facility] Comment on above: Order Comment: [facility] Laboratory [facility] has implemented the eGFR calculation approach that does not have a coefficient for race that conforms to the NKF-ASN Task Force Recommendations. Performed By: #### 4 6124 #### LAB [address] [address] Garrett Maloney M.D. [id number] Urea nitrogen [Mass/Vol] 14 mg/dL Normal 8-25 [facility] Comment on above: Order Comment: [facility] Laboratory [facility] has implemented the eGFR calculation approach that does not have a coefficient for race that conforms to the NKF-ASN Task Force Recommendations. Performed By: #### 4 6124 #### LAB [address] [address] Garrett Maloney M.D. [id number] Urea nitrogen/Creatinine [Mass ratio] 17.5 mg/mg Normal 10.0-20.0 [facility] Comment on above: Order Comment: [facility] Laboratory [facility] has implemented the eGFR calculation approach that does not have a coefficient for race that conforms to the NKF-ASN Task Force Recommendations. Performed By: #### 4 6124 #### LAB [address] [address] Garrett Maloney M.D. [id number] Anion gap [Moles/Vol] 14 mmol/L Normal 10-20 [facility] Comment on above: Order Comment: [facility] Laboratory [facility] has implemented the eGFR calculation approach that does not have a coefficient for race that conforms to the NKF-ASN Task Force Recommendations. Performed By: #### 4 6932 #### LAB [address] [address] Garrett Maloney M.D. [id number] Calcium [Mass/Vol] 8.3 mg/dL Low 8.4-10.2 [facility] Comment on above: Order Comment: [facility] Laboratory [facility] has implemented the eGFR calculation approach that does not have a coefficient for race that conforms to the NKF-ASN Task Force Recommendations. Performed By: #### 4 6932 #### LAB [address] [place], [place] [address] Garrett Maloney M.D. [id number] Chloride [Moles/Vol] 104 mmol/L Normal 98-108 [facility] Comment on above: Order Comment: [facility] Laboratory [facility] has implemented the eGFR calculation approach that does not have a coefficient for race that conforms to the NKF-ASN Task Force Recommendations. Performed By: #### 4 6932 #### LAB [address] [address] Garrett Maloney M.D. [id number] Creatinine [Mass/Vol] 0.83 mg/dL Normal 0.50-1.30 [facility] Comment on above: Order Comment: [facility] Laboratory [facility] has implemented the eGFR calculation approach that does not have a coefficient for race that conforms to the NKF-ASN Task Force Recommendations. Performed By: #### 4 6932 #### LAB [address] [address] Garrett Maloney M.D. [id number] EGFR 122 mL/min/1.73 m2 Normal >=60 [facility] Comment on above: Order Comment: [facility] Laboratory [facility] has implemented the eGFR calculation approach that does not have a coefficient for race that conforms to the NKF-ASN Task Force Recommendations. Result Comment: Gabrielle mated GFR was calculated using the 2020 CKD-EPI creatinine equation. Performed By: #### 4 6932 #### LAB [address] [place], [place] [address] Garrett Maloney M.D. [id number] Glucose [Mass/Vol] 188 mg/dL High 65-99 [facility] Comment on above: Order Comment: [facility] Laboratory [facility] has implemented the eGFR calculation approach that does not have a coefficient for race that conforms to the NKF-ASN Task Force Recommendations. Performed By: #### 4 6926 #### LAB [address] [address] Garrett Maloney M.D. [id number] HCO3 (Bld) [Moles/Vol] 19 mmol/L Low 21-32 [facility] Comment on above: Order Comment: [facility] Services has implemented the eGFR calculation approach that does not have a coefficient for race that conforms to the NKF-ASN Task Force Recommendations. Performed By: #### 4 6932 #### LAB [address] [address] Garrett Maloney M.D. [id number] Potassium [Moles/Vol] 4.2 mmol/L Normal 3.5-5.1 [facility] Comment on above: Order Comment: [facility] Laboratory [facility] has implemented the eGFR calculation approach that does not have a coefficient for race that conforms to the NKF-ASN Task Force Recommendations. Performed By: #### 4 6932 #### LAB [address] [place], [place] [address] Garrett Maloney M.D. [id number] Sodium [Moles/Vol] 133 mmol/L Low 135-145 [facility] Comment on above: Order Comment: [facility] Laboratory [facility] has implemented the eGFR calculation approach that does not have a coefficient for race that conforms to the NKF-ASN Task Force Recommendations. Performed By: #### 4 6932 #### LAB [address] [place], [place] [address] Garrett Maloney M.D. [id number] Urea nitrogen [Mass/Vol] 15 mg/dL Normal 8-25 [facility] Comment on above: Order Comment: [facility] Laboratory [facility] has implemented the eGFR calculation approach that does not have a coefficient for race that conforms to the NKF-ASN Task Force Recommendations. Performed By: #### 4 6993 #### LAB [address] [address] Garrett Maloney M.D. [id number] Urea nitrogen/Creatinine [Mass ratio] 18.1 mg/mg Normal 10.0-20.0 [facility] Comment on above: Order Comment: [facility] Laboratory [facility] has implemented the eGFR calculation approach that does not have a coefficient for race that conforms to the NKF-ASN Task Force Recommendations. Performed By: #### 4 6932 #### LAB [address] [address] Garrett Maloney M.D. [id number] Anion gap [Moles/Vol] 17 mmol/L Normal 10-20 [facility] Comment on above: Order Comment: [facility] Services has implemented the eGFR calculation approach that does not have a coefficient for race that conforms to the NKF-ASN Task Force Recommendations. Performed By: #### 4 6124 #### LAB [address] [address] Garrett Maloney M.D. [id number] Calcium [Mass/Vol] 8.2 mg/dL Low 8.4-10.2 [facility] Comment on above: Order Comment: [facility] Laboratory [facility] has implemented the eGFR calculation approach that does not have a coefficient for race that conforms to the NKF-ASN Task Force Recommendations. Performed By: #### 4 6124 #### LAB [address] [address] Garrett Maloney M.D. [id number] Chloride [Moles/Vol] 106 mmol/L Normal 98-108 [facility] Comment on above: Order Comment: [facility] Laboratory [facility] has implemented the eGFR calculation approach that does not have a coefficient for race that conforms to the NKF-ASN Task Force Recommendations. Performed By: #### 4 6124 #### LAB [address] [address] Garrett Maloney M.D. [id number] Creatinine [Mass/Vol] 0.87 mg/dL Normal 0.50-1.30 [facility] Comment on above: Order Comment: [facility] Services has implemented the eGFR calculation approach that does not have a coefficient for race that conforms to the NKF-ASN Task Force Recommendations. Performed By: #### 4 6124 #### LAB [address] [address] Garrett Maloney M.D. [id number] EGFR 121 mL/min/1.73 m2 Normal >=60 [facility] Comment on above: Order Comment: [facility] Services has implemented the eGFR calculation approach that does not have a coefficient for race that conforms to the NKF-ASN Task Force Recommendations. Result Comment: Gabrielle mated GFR was calculated using the 2020 CKD-EPI creatinine equation. Performed By: #### 4 6124 #### LAB [address] [address] Garrett Maloney M.D. [id number] Glucose [Mass/Vol] 114 mg/dL High 65-99 [facility] Comment on above: Order Comment: [facility] Services has implemented the eGFR calculation approach that does not have a coefficient for race that conforms to the NKF-ASN Task Force Recommendations. Performed By: #### 4 6124 #### LAB [address] [address] Garrett Maloney M.D. [id number] HCO3 (Bld) [Moles/Vol] 21 mmol/L Normal 21-32 [facility] Comment on above: Order Comment: [facility] Laboratory [facility] has implemented the eGFR calculation approach that does not have a coefficient for race that conforms to the NKF-ASN Task Force Recommendations. Performed By: #### 4 6139 #### LAB [address] [address] Garrett Maloney M.D. [id number] Potassium [Moles/Vol] 3.6 mmol/L Normal 3.5-5.1 [facility] Comment on above: Order Comment: [facility] Laboratory [facility] has implemented the eGFR calculation approach that does not have a coefficient for race that conforms to the NKF-ASN Task Force Recommendations. Performed By: #### 4 6110 ####[facility] [address] [address] Garrett Maloney M.D. [id number] Sodium [Moles/Vol] 140 mmol/L Normal 135-145 [facility] Comment on above: Order Comment: [facility] Laboratory Services has implemented the eGFR calculation approach that does not have a coefficient for race that conforms to the NKF-ASN Task Force Recommendations. Performed By: #### 4 6164 #### LAB [address] [id number] Garrett Maloney M.D. [id number] Urea nitrogen [Mass/Vol] 16 mg/dL Normal 8-25 [facility] Comment on above: Order Comment: [facility] Laboratory Services has implemented the eGFR calculation approach that does not have a coefficient for race that conforms to the NKF-ASN Task Force Recommendations. Performed By: #### 4 6124 #### LAB [address] [address] Garrett Maloney M.D. [id number] Urea nitrogen/Creatinine [Mass ratio] 18.4 mg/mg Normal 10.0-20.0 [facility] Comment on above: Order Comment: [facility] Laboratory Services has implemented the eGFR calculation approach that does not have a coefficient for race that conforms to the NKF-ASN Task Force Recommendations. Performed By: #### 4 6124 #### LAB [address] [address] Garrett Maloney M.D. [id number] BETA-HYDROXYBUTYRATEon 05-01 BETA-HYDROXYBUTYRATE 1.1 mmol/L High 0.0-0.3 [facility] Comment on above: Performed By: #### 4 5139 #### LAB [address] [address] Garrett Maloney M.D. [id number] BETA-HYDROXYBUTYRATE 0.2 mmol/L Normal 0.0-0.3 [facility] Comment on above: Performed By: #### 4 5139 #### LAB [address] [id number] Garrett Maloney M.D. [id number] BETA-HYDROXYBUTYRATE 0.6 mmol/L High 0.0-0.3 [facility] Comment on above: Performed By: #### 4 5139 #### LAB [address] [address] Garrett Maloney M.D. [id number] BETA-HYDROXYBUTYRATE 2.1 mmol/L High 0.0-0.3 [facility] Comment on above: Performed By: #### 4 5139 #### LAB [address] [place] [address] Garrett Maloney M.D. [id number] BETA-HYDROXYBUTYRATE 0.3 mmol/L Normal 0.0-0.3 [facility] Comment on above: Performed By: #### 4 5139 #### LAB [address] [address] Garrett Maloney M.D. [id number] CBC WITH AUTO DIFFERENTIALon 05-01-2024 AUTO NRBC 0.0 % [facility] Comment on above: Performed By: #### L [id number] #### LAB [address] [address] Garrett Maloney M.D. [id number] AUTO NRBC ABS COUNT 0.00 K/mcL Normal 0.00-0.00 [facility] Comment on above: Performed By: #### L [id number] #### LAB [address] [address] Garrett Maloney M.D. [id number] BASOPHILS ABSOLUTE COUNT 0.05 K/mcL Normal 0.00-0.30 [facility] Comment on above: Performed By: #### L [id number] #### LAB [address] [place] [address] Garrett Maloney M.D. [id number] Basophils/100 WBC (Bld) 0.6 % Normal [facility] Comment on above: Performed By: #### L [id number] #### LAB [address] [place] [address] Garrett Maloney M.D. [id number] Eosinophils (Bld) [#/Vol] 0.11 10*3/uL Normal 0.00-0.5 0 [facility] Comment on above: Performed By: #### L [id number] #### LAB [address] [place] [address] Garrett Maloney M.D. [id number] Eosinophils/100 WBC (Bld) 1.3 % Normal [facility] Comment on above: Performed By: #### L [id number] #### LAB [address] [address] Garrett Maloney M.D. [id number] Erythrocyte distribution width (RBC) [Ratio] 11.8 % Normal 11.6-14.8 [facility] Comment on above: Performed By: #### L [id number] #### LAB [address] [address] Garrett Maloney M.D. [id number] Hematocrit (Bld) [Volume fraction] 41.3 % Normal 41.0-53.0 [facility] Comment on above: Performed By: #### L [id number] #### LAB [address] [address] Garrett Maloney M.D. [id number] Hemoglobin (Bld) [Mass/Vol] 14.5 g/dL Normal 13.5-17. 5 [facility] Comment on above: Performed By: #### L [id number] #### LAB [address] [place] [address] Garrett Maloney M.D. [id number] IG ABSOLUTE 0.02 K/mcL Normal 0.00-0.30 [facility] Comment on above: Performed By: #### L [id number] #### LAB [address] [place] [address] Garrett Maloney M.D. [id number] IG PERCENT 0.20 % Normal [facility] Comment on above: Result Comment: The IG parameter is the percentage of metamyelocytes, myelocytes and promyelocytes. An immature granulocyte count (IG) of 1% or more suggests the possibility of infection, an IG count of 3% is very likely related to an infection. Performed By: #### L [id number] #### LAB [address] [place] [address] Garrett Maloney M.D. [id number] Lymphocytes (Bld) [#/Vol] 2.03 10*3/uL Normal 0.90-4.0 0 [facility] Comment on above: Performed By: #### L [id number] #### LAB [address] [address] Garrett Maloney M.D. [id number] Lymphocytes/100 WBC (Bld) 24.6 % Normal [facility] Comment on above: Performed By: #### L [id number] #### LAB [address] [address] Garrett Maloney M.D. [id number] MCH (RBC) [Entitic mass] 30.3 pg Normal 26.0-34.0 [facility] Comment on above: Performed By: #### L [id number] #### LAB [address] [address] Garrett Maloney M.D. [id number] MCV (RBC) [Entitic vol] 86.4 fL Normal 80.0-100.0 [facility] Comment on above: Performed By: #### L [id number] #### LAB [address] [address] Garrett Maloney M.D. [id number] MEAN CORPUSCULAR HEMOGLOBIN CONC 35.1 g/dL Normal 31.0-37.0 [facility] Comment on above: Performed By: #### L [id number] #### LAB [address] [address] Garrett Maloney M.D. [id number] Monocytes (Bld) [#/Vol] 0.73 10*3/uL Normal 0.30-0.90 [facility] Comment on above: Performed By: #### L [id number] #### LAB [address] [address] Garrett Maloney M.D. [id number] Monocytes/100 WBC (Bld) 8.8 % Normal [facility] Comment on above: Performed By: #### L [id number] #### LAB [address] [address] Garrett Maloney M.D. [id number] NEUTROPHILS ABSOLUTE COUNT 5.32 K/mcL Normal 1.70-7.00 [facility] Comment on above: Performed By: #### L [id number] #### LAB [address] [address] Garrett Maloney M.D. [id number] Neutrophils/100 WBC (Bld) 64.5 % Normal [facility] Comment on above: Performed By: #### L [id number] #### LAB [address] [address] Garrett Maloney M.D. [id number] Platelet mean volume (Bld) [Entitic vol] 9.0 fL Low 9.4-12.4 [facility] Comment on above: Performed By: #### L [id number] ####[facility] [address] [address] Garrett Maloney M.D. [id number] Platelets (Bld) [#/Vol] 283 10*3/uL Normal 150-400 [facility] Comment on above: Performed By: #### L [id number] ####[facility] [address] [address] Garrett Maloney M.D. [id number] RBC (Bld) [#/Vol] 4.78 10*6/uL Normal 4.50-5.90 [facility] Comment on above: Performed By: #### L [id number] ####[facility] [address] [address] Garrett Maloney M.D. [id number] WBC (Bld) [#/Vol] 8.26 10*3/uL Normal 4.50-11.00 [facility] Comment on above: Performed By: #### L [id number] ####[facility] [address] [address] Garrett Maloney M.D. [id number] [facility] 05-01-2024 CONSULT ---- Attestation signed by Tremayne Manriquez MD at 05/01/2024 12:31 PM Discussed with Rigo, recommended more IVF given worsening in labs this am. Can be switched to subcutaneous insulin if labs improve. More IVF can be considered otherwise, while still being on the IV insulin. ---- Patient ID: Patient Name: Everardo Escobar Admit Date: 04/30/2024 MR #: [id number] : 1995 Current location: [facility] Physicians: Nelsy, Physician (Family); Dr. Ta (Referring) Reason for consult: Type 1 diabetes out of control Assessment/Plan: Dx: Type 1 diabetes, under inadequate control Currently taking as outpatient: Uses Humalog 1:10 ins:CHO Humalog insulin: 10 units at breakfast; 10 units at lunch; 10 units at supper Lantus insulin: 24 units at bedtime Sliding scale: Use as directed with Humalog insulin before meals and at bedtime. 151-200: 2 units fast acting insulin 201-250: 4 units fast acting insulin 251-300: 6 units fast acting insulin 301-350: 8 units fast acting insulin 351-400: 10 units fast acting insulin above 400: 12 units fast acting insulin Current Hemoglobin A1C= 10.6% Lab Results Component Value Date HGBA1C 10.6 (H) 04/30/2024 HGBA1C 10.4 (A) 02/10/2024 HGBA1C 9.2 (H) 08/28/2023 NOTES: 05/01: BG and labs reviewed. BG ranging from 96-479 over the last 24 hours. Sodium 140, potassium 3.6, chloride 106, bicarb 21, anion gap 17, BUN 16, creatinine 0.87, EGFR 121, magnesium 2.0, phosphorus 2.9, beta hydroxybutyrate 0.3. Patient currently on insulin drip, no complaints of nausea, vomiting. He reports he ran out of insulin 1-2 weeks ago as he is currently between jobs and does not have health insurance. He was told by his current employer that his insurance was back dated however, he has not yet received an insurance card or any information on this. Consult to social service liaison placed to evaluate insurance status to have patient obtain insulin from meds to beds prior to discharge. Blood Glucoses: 04/30: XXX---XXX---479---2 02 insulin drip 05/01: 192 Plan: 1. Rx changes: 05/01: Continue insulin drip 2. Education: Reviewed 'ABCs' of diabetes management (respective goals in parentheses): A1C (7.0-8.0), blood pressure (<130/80), and cholesterol (LDL <100). Referral to Diabetes Education Referral to Nutrition therapy Subjective: Brief HPI: Everardo Escobar is a 28 y.o. male with a past medical history of type 1 diabetes and DVT who presented to [facility] emergency room with complaints of hyperglycemia, nausea, vomiting, shortness of breath, chest pain, and generalized mild abdominal pain. He reported he ran out of Lantus about 1 week ago. He follows with [facility] endocrinology and last saw PARISH Wiseman on 02/09. Patient has had diabetes for 5 years. Diagnosed in 2019. Patient is currently taking Humalog insulin: 1: 10 units at breakfast; 1: 10 units at lunch; 1: 10 units at supper Lantus insulin: 24 units at bedtime. Patient has taken Insulin for 5 years. Currently the patient is receiving insulin drip. Blood sugar levels since admission have been ranging from 96-470s mg/dL. Current monitoring regimen: home blood tests - CGM Complications of diabetes include: Retinopathy: Negative Nephropathy: Negative Peripheral Neuropathy: Negative Autonomic Neuropathy: Negative Allergies: No Known Allergies Home Medications: Outpatient Medications Marked as Taking for the 04/30/24 encounter (Hospital Encounter): insulin glargine (Lantus Solostar U-100 Insulin) 100 unit/mL (3 mL) InPn, Inject 24 (twenty four) Units under the skin nightly . insulin lispro (AdmeLOG,HumaLOG) 100 unit/mL injection, Sliding scale BS 100-150 = 1 unit, 151-200 = 2 units, 201-250 = 3 units. 251-300 = 4 units, 301-350 = 5 units, 351-400 = 6 units with meals. . insulin lispro (HumaLOG KwikPen Insulin) 100 unit/mL InPn, Use as directed TID plus sliding scale, approx 50 units total per day. Use insulin: CHO ratio of 1:8 for meals and snacks . Current Medications: heparin (porcine) 5,000 Units Subcutaneous Q8H KESHA magnesium sulfate IVPB/IV replacement 2 g Intravenous Once senna-docusate 1 tablet Oral BID sodium chloride (PF) 5 mL Intravenous Q8H KESHA sodium phosphate 15 mmol Intravenous Once acetaminophen, dextrose 5 % and sodium chloride 0.45 %, dextrose 5 % and sodium chloride 0.45 % with KCl 20 mEq/L, nalOXone AND Notify physician AND naloxone, ondansetron OR ondansetron, Saline lock IV AND sodium chloride (PF) AND sodium chloride (PF) AND sodium chloride 0.9 % Review of Systems: Review of Systems Constitutional: Negative for fatigue and unexpected weight change. HENT: Negative for trouble swallowing and voice change. Respiratory: Negative for shortness of breath. Cardiova (more content not included)... Normal [facility] ELECTROLYTES, URINEon 2023 CHLORIDE UR 157 mmol/L Normal [facility] Comment on above: Order Comment: No es tablished reference range. Performed By: #### 4 5552 #### LAB [address] [address] Garrett Maloney M.D. [id number] POTASSIUM UR 48.8 mmol/L Normal [facility] Comment on above: Order Comment: No es tablished reference range. Performed By: #### 4 5533 #### LAB [address] [place], [place] [address] Garrett Maloney M.D. [id number] Sodium (U) [Moles/Vol] 53 mmol/L Normal [facility] Comment on above: Order Comment: No es tablished reference range. Performed By: #### 4 5550 #### LAB [address] [address] Garrett Maloney M.D. [id number] MAGNESIUM LEVELon 05-01-2024 Magnesium [Mass/Vol] 2.1 mg/dL Normal 1.6-2.4 [facility] Comment on above: Performed By: #### 4 6109 #### LAB [address] [address] Garrett Maloney M.D. [id number] Magnesium [Mass/Vol] 1.8 mg/dL Normal 1.6-2.4 [facility] Comment on above: Performed By: #### 4 6932 #### MH LAB [address] [address] Garrett Maloney M.D. [id number] Magnesium [Mass/Vol] 2.1 mg/dL Normal 1.6-2.4 [facility] Comment on above: Performed By: #### 4 6932 #### LAB [address] [address] Garrett Maloney M.D. [id number] Magnesium [Mass/Vol] 1.8 mg/dL Normal 1.6-2.4 [facility] Comment on above: Performed By: #### 4 6932 #### LAB [address] [address] Garrett Maloney M.D. [id number] Magnesium [Mass/Vol] 2.0 mg/dL Normal 1.6-2.4 [facility] Comment on above: Performed By: #### 4 6932 #### LAB [address] [place] [id number] Garrett Maloney M.D. [id number] PHOSPHORUSon 05-01-2024 Phosphate [Mass/Vol] 2.2 mg/dL Low 2.7-4.5 [facility] Comment on above: Performed By: #### 4 6299 #### LAB [address] [place] [id number] Garrett Maloney M.D. [id number] Phosphate [Mass/Vol] 2.1 mg/dL Low 2.7-4.5 [facility] Comment on above: Performed By: #### 4 6939 #### LAB [address] [place] [id number] Garrett Maloney M.D. [id number] Phosphate [Mass/Vol] 1.8 mg/dL Low 2.7-4.5 [facility] Comment on above: Performed By: #### 4 6299 #### LAB [address] [place] [address] Garrett Maloney M.D. [id number] Phosphate [Mass/Vol] 2.1 mg/dL Low 2.7-4.5 [facility] Comment on above: Performed By: #### 4 6299 #### LAB [address] [address] Garrett Maloney M.D. [id number] Phosphate [Mass/Vol] 2.9 mg/dL Normal 2.7-4.5 [facility] Comment on above: Performed By: #### 4 6932 #### LAB [address] [address] Garrett Maloney M.D. [id number] POC GLUCOSE [facility] 024 Glucose [Mass/Vol] 253 mg/dL High [address] [place] [address] Comment on above: Performed By: #### 4 5845 #### LAB [address] [place] [address] Garrett Maloney M.D. [id number] Glucose [Mass/Vol] 378 mg/dL [address] Comment on above: Performed By: #### 4 9329 #### LAB [address] [place] [address] Garrett Maloney M.D. [id number] Glucose [Mass/Vol] 224 mg/dL [address] Comment on above: Performed By: #### 4 2294 #### LAB [address] [place] [address] Garrett Maloney M.D. [id number] Glucose [Mass/Vol] 203 mg/dL [address] Comment on above: Performed By: #### 4 3680 #### LAB [address] [place] [address] Garrett Maloney M.D. [id number] Glucose [Mass/Vol] 153 mg/dL High [address] [place] [address] Comment on above: Performed By: #### 4 6932 #### LAB [address] [place] [address] Garrett Maloney M.D. [id number] Glucose [Mass/Vol] 86 mg/dL Normal [address] [place] [address] Comment on above: Performed By: #### 4 6980 #### MH LAB [address] [address] Garrett Maloney M.D. [id number] Glucose [Mass/Vol] 82 mg/dL Normal [address] [place] [address] Comment on above: Performed By: #### 4 6920 #### MH LAB [address] [address] Garrett Maloney M.D. [id number] Glucose [Mass/Vol] 103 mg/dL High [address] [place] [address] Comment on above: Performed By: #### 4 1412 #### LAB [address] [place] [address] Garrett Maloney M.D. [id number] Glucose [Mass/Vol] 120 mg/dL High [address] [place] [address] Comment on above: Performed By: #### 4 8004 #### LAB [address] [place] [address] Garrett Maloney M.D. [id number] Glucose [Mass/Vol] 171 mg/dL High [address] [place] [address] Comment on above: Performed By: #### 4 5276 #### LAB [address] [place] [address] Garrett Maloney M.D. [id number] Glucose [Mass/Vol] 225 mg/dL High [address] [place] [address] Comment on above: Performed By: #### 4 1866 #### LAB [address] [place] [address] Garrett Maloney M.D. [id number] Glucose [Mass/Vol] 241 mg/dL High [address] [place] [address] Comment on above: Performed By: #### 4 6932 #### LAB [address] [place] [address] Garrett Maloney M.D. [id number] Glucose [Mass/Vol] 270 mg/dL [address] Comment on above: Performed By: #### 4 6932 #### LAB [address] [place] [address] Garrett Maloney M.D. [id number] Glucose [Mass/Vol] 145 mg/dL [address] Comment on above: Performed By: #### 4 6932 #### LAB [address] [place] [address] Garrett Maloney M.D. [id number] Glucose [Mass/Vol] 153 mg/dL [address] Comment on above: Performed By: #### 4 5096 #### LAB [address] [place] [address] Garrett Maloney M.D. [id number] Glucose [Mass/Vol] 183 mg/dL [address] Comment on above: Performed By: #### 4 6932 #### LAB [address] [place] [address] Garrett Maloney M.D. [id number] Glucose [Mass/Vol] 192 mg/dL [address] Comment on above: Performed By: #### 4 6944 #### LAB [address] [place] [address] Garrett Maloney M.D. [id number] Glucose [Mass/Vol] 220 mg/dL [address] Comment on above: Performed By: #### 4 9470 #### LAB [address] [place] [address] Garrett Maloney M.D. [id number] Glucose [Mass/Vol] 153 mg/dL [address] Comment on above: Performed By: #### 4 6932 #### MH LAB [address] [address] Garrett Maloney M.D. [id number] Glucose [Mass/Vol] 99 mg/dL Normal [address] [place] [address] Comment on above: Performed By: #### 4 6932 #### MH LAB [address] [address] Garrett Maloney M.D. [id number] Glucose [Mass/Vol] 96 mg/dL Normal [address] [place] [address] Comment on above: Performed By: #### 4 6932 #### ES LAB [address] [address] Garrett Maloney M.D. [id number] Glucose [Mass/Vol] 119 mg/dL High [address] [place] [address] Comment on above: Performed By: #### 4 6932 #### ES LAB [address] [address] Garrett Maloney M.D. [id number] Glucose [Mass/Vol] 125 mg/dL High [address] [place] [address] Comment on above: Performed By: #### 4 6932 #### LAB [address] [place] [address] Garrett Maloney M.D. [id number] Glucose [Mass/Vol] 159 mg/dL High [address] [place] [address] Comment on above: Performed By: #### 4 6932 #### LAB [address] [place] [address] Garrett Maloney M.D. [id number] Glucose [Mass/Vol] 181 mg/dL High [address] [place] [address] Comment on above: Performed By: #### 4 6900 #### MH LAB [address] [address] Garrett Maloney M.D. [id number] BASIC METABOLIC PANELon 09-0 Anion gap [Moles/Vol] 16 mmol/L Normal 10-20 [facility] Comment on above: Order Comment: [facility] has implemented the eGFR calculation approach that does not have a coefficient for race that conforms to the NKF-ASN Task Force Recommendations. Performed By: #### 4 6124 #### LAB [address] [address] Garrett Maloney M.D. [id number] Calcium [Mass/Vol] 8.3 mg/dL Low 8.4-10.2 [facility] Comment on above: Order Comment: [facility] Laboratory [facility] has implemented the eGFR calculation approach that does not have a coefficient for race that conforms to the NKF-ASN Task Force Recommendations. Performed By: #### 4 6124 #### LAB [address] [address] Garrett Maloney M.D. [id number] Chloride [Moles/Vol] 104 mmol/L Normal 98-108 [facility] Comment on above: Order Comment: [facility] Laboratory [facility] has implemented the eGFR calculation approach that does not have a coefficient for race that conforms to the NKF-ASN Task Force Recommendations. Performed By: #### 4 6124 #### LAB [address] [address] Garrett Maloney M.D. [id number] Creatinine [Mass/Vol] 0.92 mg/dL Normal 0.50-1.30 [facility] Comment on above: Order Comment: [facility] Laboratory [facility] has implemented the eGFR calculation approach that does not have a coefficient for race that conforms to the NKF-ASN Task Force Recommendations. Performed By: #### 4 6124 #### LAB [address] [address] Garrett Maloney M.D. [id number] EGFR 116 mL/min/1.73 m2 Normal >=60 [facility] Comment on above: Order Comment: [facility] Laboratory [facility] has implemented the eGFR calculation approach that does not have a coefficient for race that conforms to the NKF-ASN Task Force Recommendations. Result Comment: Gabrielle mated GFR was calculated using the 2020 CKD-EPI creatinine equation. Performed By: #### 4 6124 #### LAB [address] [address] Garrett Maloney M.D. [id number] Glucose [Mass/Vol] 169 mg/dL High 65-99 [facility] Comment on above: Order Comment: [facility] Laboratory [facility] has implemented the eGFR calculation approach that does not have a coefficient for race that conforms to the NKF-ASN Task Force Recommendations. Performed By: #### 4 6124 #### LAB [address] [address] Garrett Maloney M.D. [id number] HCO3 (Bld) [Moles/Vol] 20 mmol/L Low 21-32 [facility] Comment on above: Order Comment: [facility] Laboratory [facility] has implemented the eGFR calculation approach that does not have a coefficient for race that conforms to the NKF-ASN Task Force Recommendations. Performed By: #### 4 6124 #### LAB [address] [address] Garrett Maloney M.D. [id number] Potassium [Moles/Vol] 4.0 mmol/L Normal 3.5-5.1 [facility] Comment on above: Order Comment: [facility] Laboratory [facility] has implemented the eGFR calculation approach that does not have a coefficient for race that conforms to the NKF-ASN Task Force Recommendations. Performed By: #### 4 6124 #### LAB [address] [address] Garrett Maloney M.D. [id number] Sodium [Moles/Vol] 136 mmol/L Normal 135-145 [facility] Comment on above: Order Comment: [facility] Laboratory [facility] has implemented the eGFR calculation approach that does not have a coefficient for race that conforms to the NKF-ASN Task Force Recommendations. Performed By: #### 4 6124 #### LAB [address] [address] Garrett Maloney M.D. [id number] Urea nitrogen [Mass/Vol] 18 mg/dL Normal 8-25 [facility] Comment on above: Order Comment: [facility] Laboratory [facility] has implemented the eGFR calculation approach that does not have a coefficient for race that conforms to the NKF-ASN Task Force Recommendations. Performed By: #### 4 6124 #### LAB [address] [address] Garrett Maloney M.D. [id number] Urea nitrogen/Creatinine [Mass ratio] 19.6 mg/mg Normal 10.0-20.0 [facility] Comment on above: Order Comment: [facility] has implemented the eGFR calculation approach that does not have a coefficient for race that conforms to the NKF-ASN Task Force Recommendations. Performed By: #### 4 6124 #### LAB [address] [address] Garrett Maloney M.D. [id number] Anion gap [Moles/Vol] 26 mmol/L High 10-20 [facility] Comment on above: Order Comment: [facility] has implemented the eGFR calculation approach that does not have a coefficient for race that conforms to the NKF-ASN Task Force Recommendations. Performed By: #### 4 6124 #### LAB [address] [address] Garrett Maloney M.D. [id number] Calcium [Mass/Vol] 8.4 mg/dL Normal 8.4-10.2 [facility] Comment on above: Order Comment: [facility] has implemented the eGFR calculation approach that does not have a coefficient for race that conforms to the NKF-ASN Task Force Recommendations. Performed By: #### 4 6124 #### LAB [address] [address] Garrett Maloney M.D. [id number] Chloride [Moles/Vol] 101 mmol/L Normal 98-108 [facility] Comment on above: Order Comment: [facility] has implemented the eGFR calculation approach that does not have a coefficient for race that conforms to the NKF-ASN Task Force Recommendations. Performed By: #### 4 6124 #### LAB [address] [address] Garrett Maloney M.D. [id number] Creatinine [Mass/Vol] 1.12 mg/dL Normal 0.50-1.30 [facility] Comment on above: Order Comment: [facility] has implemented the eGFR calculation approach that does not have a coefficient for race that conforms to the NKF-ASN Task Force Recommendations. Performed By: #### 4 6124 #### LAB [address] [address] Garrett Maloney M.D. [id number] EGFR 92 mL/min/1.73 m2 Normal >=60 [facility] Comment on above: Order Comment: [facility] Laboratory [facility] has implemented the eGFR calculation approach that does not have a coefficient for race that conforms to the NKF-ASN Task Force Recommendations. Result Comment: Gabrielle mated GFR was calculated using the 2020 CKD-EPI creatinine equation. Performed By: #### 4 6124 #### LAB [address] [address] Garrett Maloney M.D. [id number] Glucose [Mass/Vol] 237 mg/dL High 65-99 [facility] Comment on above: Order Comment: [facility] Laboratory [facility] has implemented the eGFR calculation approach that does not have a coefficient for race that conforms to the NKF-ASN Task Force Recommendations. Performed By: #### 4 6124 #### LAB [address] [address] Garrett Maloney M.D. [id number] HCO3 (Bld) [Moles/Vol] 16 mmol/L Low 21-32 [facility] Comment on above: Order Comment: [facility] Laboratory [facility] has implemented the eGFR calculation approach that does not have a coefficient for race that conforms to the NKF-ASN Task Force Recommendations. Performed By: #### 4 6169 #### LAB [address] [address] Garrett Maloney M.D. [id number] Potassium [Moles/Vol] 4.5 mmol/L Normal 3.5-5.1 [facility] Comment on above: Order Comment: [facility] Laboratory [facility] has implemented the eGFR calculation approach that does not have a coefficient for race that conforms to the NKF-ASN Task Force Recommendations. Performed By: #### 4 6124 #### LAB [address] [address] Garrett Maloney M.D. [id number] Sodium [Moles/Vol] 138 mmol/L Normal 135-145 [facility] Comment on above: Order Comment: [facility] has implemented the eGFR calculation approach that does not have a coefficient for race that conforms to the NKF-ASN Task Force Recommendations. Performed By: #### 4 6124 #### LAB [address] [address] Garrett Maloney M.D. [id number] Urea nitrogen [Mass/Vol] 21 mg/dL Normal 8-25 [facility] Comment on above: Order Comment: [facility] has implemented the eGFR calculation approach that does not have a coefficient for race that conforms to the NKF-ASN Task Force Recommendations. Performed By: #### 4 6124 #### LAB [address] [address] Garrett Maloney M.D. [id number] Urea nitrogen/Creatinine [Mass ratio] 18.8 mg/mg Normal 10.0-20.0 [facility] Comment on above: Order Comment: [facility] has implemented the eGFR calculation approach that does not have a coefficient for race that conforms to the NKF-ASN Task Force Recommendations. Performed By: #### 4 6124 #### LAB [address] [address] Garrett Maloney M.D. [id number] Anion gap [Moles/Vol] 35 mmol/L High 10-20 [facility] Comment on above: Order Comment: [facility] has implemented the eGFR calculation approach that does not have a coefficient for race that conforms to the NKF-ASN Task Force Recommendations. Performed By: #### 4 6932 #### MH LAB [address] [address] Garrett Maloney M.D. [id number] Calcium [Mass/Vol] 9.9 mg/dL Normal 8.4-10.2 [facility] Comment on above: Order Comment: [facility] has implemented the eGFR calculation approach that does not have a coefficient for race that conforms to the NKF-ASN Task Force Recommendations. Performed By: #### 4 6932 #### LAB [address] [place], [place] [address] Garrett Maloney M.D. [id number] Chloride [Moles/Vol] 90 mmol/L Low 98-108 [facility] Comment on above: Order Comment: [facility] Laboratory [facility] has implemented the eGFR calculation approach that does not have a coefficient for race that conforms to the NKF-ASN Task Force Recommendations. Performed By: #### 4 6932 #### LAB [address] [address] Garrett Maloney M.D. [id number] Creatinine [Mass/Vol] 1.41 mg/dL High 0.50-1.30 [facility] Comment on above: Order Comment: [facility] Laboratory [facility] has implemented the eGFR calculation approach that does not have a coefficient for race that conforms to the NKF-ASN Task Force Recommendations. Performed By: #### 4 6932 #### LAB [address] [address] Garrett Maloney M.D. [id number] EGFR 70 mL/min/1.73 m2 Normal >=60 [facility] Comment on above: Order Comment: [facility] Laboratory [facility] has implemented the eGFR calculation approach that does not have a coefficient for race that conforms to the NKF-ASN Task Force Recommendations. Result Comment: Gabrielle mated GFR was calculated using the 2020 CKD-EPI creatinine equation. Performed By: #### 4 6932 #### MH LAB [address] [place], [place] [address] Garrett Maloney M.D. [id number] Glucose [Mass/Vol] 544 mg/dL Off scale high 65-99 [facility] Comment on above: Order Comment: [facility] has implemented the eGFR calculation approach that does not have a coefficient for race that conforms to the NKF-ASN Task Force Recommendations. Performed By: #### 4 6943 #### MH LAB [address] [place], [place] [address] Garrett Maloney M.D. [id number] HCO3 (Bld) [Moles/Vol] 13 mmol/L Low 21-32 [facility] Comment on above: Order Comment: [facility] has implemented the eGFR calculation approach that does not have a coefficient for race that conforms to the NKF-ASN Task Force Recommendations. Performed By: #### 4 6932 #### LAB [address] [address] Garrett Maloney M.D. [id number] Potassium [Moles/Vol] 5.9 mmol/L High 3.5-5.1 [facility] Comment on above: Order Comment: [facility] Laboratory [facility] has implemented the eGFR calculation approach that does not have a coefficient for race that conforms to the NKF-ASN Task Force Recommendations. Performed By: #### 4 6932 #### LAB [address] [address] Garrett Maloney M.D. [id number] Sodium [Moles/Vol] 132 mmol/L Low 135-145 [facility] Comment on above: Order Comment: [facility] Laboratory [facility] has implemented the eGFR calculation approach that does not have a coefficient for race that conforms to the NKF-ASN Task Force Recommendations. Performed By: #### 4 6932 #### LAB [address] [address] Garrett Maloney M.D. [id number] Urea nitrogen [Mass/Vol] 22 mg/dL Normal 8-25 [facility] Comment on above: Order Comment: [facility] Laboratory [facility] has implemented the eGFR calculation approach that does not have a coefficient for race that conforms to the NKF-ASN Task Force Recommendations. Performed By: #### 4 6973 #### LAB [address] [address] Garrett Maloney M.D. [id number] Urea nitrogen/Creatinine [Mass ratio] 15.6 mg/mg Normal 10.0-20.0 [facility] Comment on above: Order Comment: [facility] has implemented the eGFR calculation approach that does not have a coefficient for race that conforms to the NKF-ASN Task Force Recommendations. Performed By: #### 4 6932 #### LAB [address] [address] Garrett Maloney M.D. [id number] BETA-HYDROXYBUTYRATEon 04-30 BETA-HYDROXYBUTYRATE 1.0 mmol/L High 0.0-0.3 [facility] Comment on above: Performed By: #### 4 5139 ####MH LAB [address] [address] Garrett Maloney M.D. [id number] BETA-HYDROXYBUTYRATE 4.5 mmol/L High 0.0-0.3 [facility] Comment on above: Performed By: #### 4 5139 #### LAB [address] [address] Garrett Maloney M.D. [id number] BETA-HYDROXYBUTYRATE 9.5 mmol/L High 0.0-0.3 [facility] Comment on above: Performed By: #### 4 5139 #### LAB [address] [address] Garrett Maloney M.D. [id number] CBC WITH AUTO DIFFERENTIALon 04-30-2024 AUTO NRBC 0.0 % Normal [facility] Comment on above: Performed By: #### 4 6932 #### LAB [address] [address] Garrett Maloney M.D. [id number] AUTO NRBC ABS COUNT 0.00 K/mcL Normal 0.00-0.00 [facility] Comment on above: Performed By: #### 4 6932 #### LAB [address] [address] Garrett Maloney M.D. [id number] BASOPHILS ABSOLUTE COUNT 0.14 K/mcL Normal 0.00-0.30 [facility] Comment on above: Performed By: #### 4 6956 #### LAB [address] [address] Garrett Maloney M.D. [id number] Basophils/100 WBC (Bld) 1.6 % Normal [facility] Comment on above: Performed By: #### 4 6999 #### LAB [address] [address] Garrett Maloney M.D. [id number] Eosinophils (Bld) [#/Vol] 0.08 10*3/uL Normal 0.00-0.5 0 [facility] Comment on above: Performed By: #### 4 7206 #### LAB [address] [address] Garrett Maloney M.D. [id number] Eosinophils/100 WBC (Bld) 0.9 % Normal [facility] Comment on above: Performed By: #### 4 6957 #### LAB [address] [address] Garrett Maloney M.D. [id number] Erythrocyte distribution width (RBC) [Ratio] 11.9 % Normal 11.6-14.8 [facility] Comment on above: Performed By: #### 4 7288 #### LAB [address] [address] Garrett Maloney M.D. [id number] Hematocrit (Bld) [Volume fraction] 51.6 % Normal 41.0-53.0 [facility] Comment on above: Performed By: #### 4 6955 #### LAB [address] [address] Garrett Maloney M.D. [id number] Hemoglobin (Bld) [Mass/Vol] 17.1 g/dL Normal 13.5-17. 5 [facility] Comment on above: Performed By: #### 4 2276 #### LAB [address] [address] Garrett Maloney M.D. [id number] IG ABSOLUTE 0.07 K/mcL Normal 0.00-0.30 [facility] Comment on above: Performed By: #### 4 8054 #### LAB [address] [address] Garrett Maloney M.D. [id number] IG PERCENT 0.80 % Normal [facility] Comment on above: Result Comment: The IG parameter is the percentage of metamyelocytes, myelocytes and promyelocytes. An immature granulocyte count (IG) of 1% or more suggests the possibility of infection, an IG count of 3% is very likely related to an infection. Performed By: #### 4 6932 #### LAB [address] [address] Garrett Maloney M.D. [id number] Lymphocytes (Bld) [#/Vol] 0.83 10*3/uL Low 0.90-4.[address] [place] [address] Comment on above: Performed By: #### 4 6933 #### LAB [address] [address] Garrett Maloney M.D. [id number] Lymphocytes/100 WBC (Bld) 9.4 % Normal [facility] Comment on above: Performed By: #### 4 6933 #### LAB [address] [address] Garrett Maloney M.D. [id number] MCH (RBC) [Entitic mass] 29.7 pg Normal 26.0-34.0 [facility] Comment on above: Performed By: #### 4 6918 #### LAB [address] [address] Garrett Maloney M.D. [id number] MCV (RBC) [Entitic vol] 89.7 fL Normal 80.0-100.0 [facility] Comment on above: Performed By: #### 4 6961 #### LAB [address] [address] Garrett Maloney M.D. [id number] MEAN CORPUSCULAR HEMOGLOBIN CONC 33.1 g/dL Normal 31.0-37.0 [facility] Comment on above: Performed By: #### 4 6925 #### LAB [address] [place] [address] Garrett Maloney M.D. [id number] Monocytes (Bld) [#/Vol] 0.33 10*3/uL Normal 0.30-0.90 [facility] Comment on above: Performed By: #### 4 6932 #### LAB [address] [address] Garrett Maloney M.D. [id number] Monocytes/100 WBC (Bld) 3.7 % Normal [facility] Comment on above: Performed By: #### 4 6932 #### LAB [address] [address] Garrett Maloney M.D. [id number] NEUTROPHILS ABSOLUTE COUNT 7.38 K/mcL High 1.70-7.00 [facility] Comment on above: Performed By: #### 4 6932 #### LAB [address] [address] Garrett Maloney M.D. [id number] Neutrophils/100 WBC (Bld) 83.6 % Normal [facility] Comment on above: Performed By: #### 4 6932 #### LAB [address] [address] Garrett Maloney M.D. [id number] Platelet mean volume (Bld) [Entitic vol] 9.6 fL Normal 9.4-12.4 [facility] Comment on above: Performed By: #### 4 6932 #### LAB [address] [address] Garrett Maloney M.D. [id number] Platelets (Bld) [#/Vol] 350 10*3/uL Normal 150-400 [facility] Comment on above: Performed By: #### 4 6932 #### LAB [address] [address] Garrett Maloney M.D. [id number] RBC (Bld) [#/Vol] 5.75 10*6/uL Normal 4.50-5.90 [facility] Comment on above: Performed By: #### 4 6936 #### LAB [address] [address] Garrett Maloney M.D. [id number] WBC (Bld) [#/Vol] 8.83 10*3/uL Normal 4.50-11.00 [facility] Comment on above: Performed By: #### 4 6932 #### LAB [address] [place], [place] [address] Garrett Maloney M.D. [id number] COVID-19/INFLUENZA A,B MOLEC ULARon 04-30-2024 SARS-CoV-2 (COVID-19) Ab IA Ql SARS-COV-2 (JANI) Not Detected INFLUENZA A (JANI) Not Detected INFLUENZA B (JANI) Not Detected Normal Not Detected [facility] Comment on above: Performed By: #### 4 6932 #### LAB [address] [place], [place] [address] Garrett Maloney M.D. [id number] ED Procedureon 04-30-2024 ED Procedure Critical Care Performed by: Priti Garcia CNP Authorized by: Tremayne Wilkinson MD Total critical care time: 30 minutes Critical care was necessary to treat or prevent imminent or life-threatening deterioration of the following conditions: cardiac failure, SUPERVISOR POST WAVE failure or compromise, metabolic crisis, respiratory failure, endocrine crisis, shock, dehydration, circulatory failure, hepatic failure, renal failure, sepsis and toxidrome. Critical care was time spent personally by me on the following activities: blood draw for specimens, development of treatment plan with patient or surrogate, discussions with consultants, evaluation of patient's response to treatment, examination of patient, obtaining history from patient or surrogate, ordering and performing treatments and interventions, ordering and review of radiographic studies, ordering and review of laboratory studies, pulse oximetry, re-evaluation of patient's condition and review of old charts. AUTHENTICATED BY TREMAYNE WILKINSON, ON 04/30/2024 20:10:36 Normal [facility] ED Procedure EKG 12-lead Date/Time: 04/30/2024 4:23 PM Performed by: Priti Garcia CNP Authorized by: Priti Garcia CNP Interpreted by ED attending physician Comparison: compared with previous ECG Rhythm: sinus rhythm and sinus tachycardia BPM: 103 Conduction: incomplete RBBB QRS axis: right T Peaked: II, III, aVF, V3, V4, V6 and V5 NM Interval: 136 QRS Interval: 100 QT Interval: 461 Clinical impression: abnormal ECG and sinus tachycardia Comments: Sinus tachycardia. Ventricular rate of 103 bpm. Biatrial enlargement. Right axis deviation. He does have peaked T waves noted. Incomplete right bundle branch block. No evidence of active ischemia or STEMI. Abnormal EKG. AUTHENTICATED BY TREMAYNE WILKINSON, ON 04/30/2024 20:10:41 Normal [facility] ED Prov Noteon 04-30-2024 ED Prov Note [facility] EMERGENCY DEPARTMENT EFFIE NOTE: NAME: Everardo Escobar CSN: [id number] 28 y.o. PCP: Nelsy, Physician History: Chief Complaint: Hyperglycemia HPI: The history was obtained from the patient. Everardo is a 28 y.o. male with past medical history of type 1 diabetes and DVT who presents with a chief complaint of Hyperglycemia. Patient reports that for the last week he has had nausea and vomiting. He reports that symptoms feel like he is going into DKA. He states that he has had some shortness of breath and chest pain as well as some generalized mild abdominal pain which she states is regular for him when he goes into DKA. He states that he is on sliding scale insulin at home and also Lantus however ran out of his Lantus about a week ago or more. He states that he follows with Dr. Rojas and is scheduled to see her on May 22 first but has not seen her in quite some time. He reports that over the last week sugars have been high. He states that prior to this last week his sugars are usually well-controlled. He denies any fever but states that he has had some chills. He denies any headache, lightheadedness or dizziness, diarrhea or change in urination/urinary symptoms. 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 Hx: Family History Problem Relation Age of Onset - Hypertension Mother - Hyperthyroidism Father - No Known Problems Sister - No Known Problems Brother SOC. Hx: Social History Socioeconomic History - Marital status: Single Tobacco Use - Smoking status: Former Current packs/day: 0.30 Types: Cigarettes - Smokeless tobacco: Former Types: Chew Vaping Use - Vaping status: Never Used Substance and Sexual Activity - Alcohol use: Not Currently Comment: Social - Drug use: Never - Sexual activity: Not Currently MEDs: Previous Medications Medication Sig - blood-glucose sensor (Dexcom G6 Sensor) Fauzia Change every 10 days . (Patient not taking: Reported on 02/10/2024 .) - insulin glargine (Lantus Solostar U-100 Insulin) 100 unit/mL (3 mL) InPn Inject 24 (twenty four) Units under the skin nightly . - insulin lispro (AdmeLOG,HumaLOG) 100 unit/mL injection Sliding scale BS 100-150 = 1 unit, 151-200 = 2 units, 201-250 = 3 units. 251-300 = 4 units, 301-350 = 5 units, 351-400 = 6 units with meals. . - insulin lispro (HumaLOG KwikPen Insulin) 100 unit/mL InPn Use as directed TID plus sliding scale, approx 50 units total per day. Use insulin: CHO ratio of 1:8 for meals and snacks . ALL: No Known Allergies ROS: Review of Systems All other systems reviewed and are negative. Positives and pertinent negatives as per HPI. All other systems were reviewed and are negative. Physical Exam: Patient Vitals for the past 24 hrs: BP Temp Temp src Pulse Resp SpO2 Height Weight 04/30/24 1545 124/76 97.5 degrees F (36.4 degrees C) Oral (!) 109 16 98 % -- -- 04/30/24 1545 -- -- -- -- -- -- 6' 90.7 kg (200 lb) Physical Exam Vitals and nursing note reviewed. Constitutional: General: He is awake. He is not in acute distress. Appearance: Normal appearance. He is ill-appearing. He is not toxic-appearing or diaphoretic. HENT: Head: Normocephalic and atraumatic. Nose: Nose normal. Mouth/Throat: Lips: [place]. No lesions. Mouth: Mucous membranes are moist. Pharynx: Oropharynx is clear. Eyes: General: Lids are normal. Vision grossly intact. No scleral icterus. Conjunctiva/sclera: Conjunctivae normal. Cardiovascular: Rate and Rhythm: Normal rate and regular rhythm. Pulses: Radial pulses are 2+ on the right side and 2+ on the left side. Heart sounds: Normal heart sounds, S1 normal and S2 normal. No murmur heard. No friction rub. No gallop. Musculoskeletal: Right lower leg: No swelling. No edema. Left lower leg: No swelling. No edema. Pulmonary: Effort: Pulmonary effort is normal. No respiratory distress. Breath sounds: Normal breath sounds. No decreased breath sounds, wheezing, rhonchi or rales. Abdominal: General: Abdomen is flat. Palpations: Abdomen is soft. Tenderness: There is abdominal tenderness (Mild generalized). There is no guarding or rebound. Skin: General: Skin is warm and dry. Capillary Refill: Capillary refill takes less than 2 seconds. Findings: No rash (No obvious acute rash visualized on exposed skin.). Neurological: General: No focal deficit present. Mental Status: He is alert and oriented to person, place, and time. GCS: GCS eye subscore is 4. GCS verbal subscore is 5. GCS motor subscore is 6. Cranial Nerves: Cranial nerves 2-12 are intact. Sensory: Sensation is intact. Motor: Motor function is intact. No weakness. Gait: Gait normal. Psychiatric: Mood and Affect: Mood normal. Behavio (more content not included)... Normal [facility] HEMOGLOBIN A1Con 04-30-2024 Glucose [Mass/Vol] 258 mg/dL High 74-114 [facility] Comment on above: Performed By: #### 4 6932 #### MH LAB [address] [place], [place] [address] Garrett Maloney M.D. [id number] HbA1c (Bld) [Mass fraction] 10.6 % High 4.2-5.6 [facility] Comment on above: Performed By: #### 4 6932 #### MH LAB [address] [place], [place] [address] Garrett Maloney M.D. [id number] LIPASEon 04-30-2024 Lipase [Catalytic activity/Vol] 19 U/L Normal 15-65 [facility] Comment on above: Performed By: #### 4 6932 #### MH LAB [address] [place], [place] [address] Garrett Maloney M.D. [id number] MAGNESIUM LEVELon 04-30-2024 Magnesium [Mass/Vol] 2.0 mg/dL Normal 1.6-2.4 [facility] Comment on above: Performed By: #### 4 6932 #### LAB [address] [address] Garrett Maloney M.D. [id number] Magnesium [Mass/Vol] 2.2 mg/dL Normal 1.6-2.4 [facility] Comment on above: Performed By: #### 4 6109 #### LAB [address] [address] Garrett Maloney M.D. [id number] PHOSPHORUSon 04-30-2024 Phosphate [Mass/Vol] 3.0 mg/dL Normal 2.7-4.5 [facility] Comment on above: Performed By: #### 4 6299 #### LAB [address] [address] Garrett Maloney M.D. [id number] Phosphate [Mass/Vol] 3.7 mg/dL Normal 2.7-4.5 [facility] Comment on above: Performed By: #### 4 6299 #### LAB [address] [address] Garrett Maloney M.D. [id number] POC GLUCOSE [facility] 024 Glucose [Mass/Vol] 181 mg/dL High [address] [place] [address] Comment on above: Performed By: #### 4 6932 #### LAB [address] [address] Garrett Maloney M.D. [id number] Glucose [Mass/Vol] 169 mg/dL High [address] [place] [address] Comment on above: Performed By: #### 4 6932 #### LAB [address] [address] Garrett Maloney M.D. [id number] Glucose [Mass/Vol] 202 mg/dL High [address] [place] [address] Comment on above: Performed By: #### 4 6932 #### LAB [address] [address] Garrett Maloney M.D. [id number] Glucose [Mass/Vol] 293 mg/dL High 65-99 [facility] Comment on above: Performed By: #### 4 6932 #### MH LAB [address] [address] Garrett Maloney M.D. [id number] Glucose [Mass/Vol] 328 mg/dL [address] [facility] Comment on above: Performed By: #### 4 6932 #### MH LAB [address] [address] Garrett Maloney M.D. [id number] Glucose [Mass/Vol] 462 mg/dL Off scale high 65-99 [facility] Comment on above: Order Comment: Criti phylicia result acted upon time of test. Test performed at bedside. Performed By: #### 4 6932 #### LAB [address] [address] Garrett Maloney M.D. [id number] Glucose [Mass/Vol] 479 mg/dL Off scale high [address] [place] [address] Comment on above: Order Comment: Criti phylicia result acted upon time of test. Test performed at bedside. Performed By: #### 4 6954 #### LAB [address] [address] Garrett Maloney M.D. [id number] POC VENOUS BLOOD GAS PANEL-P [facility] 04-30-2024 BASE EXCESS, VENOUS -16.5 Low -2.0-2.0 [facility] Comment on above: Order Comment: Criti phylicia result acted upon time of test. Test performed at bedside. Performed By: #### 4 6913 #### MH LAB [address] [address] Garrett Maloney M.D. [id number] HCO3 (Bld) [Moles/Vol] 11.8 mmol/L Low 24.0-28.0 [facility] Comment on above: Order Comment: Criti phylicia result acted upon time of test. Test performed at bedside. Performed By: #### 4 6990 #### MH LAB [address] [address] Garrett Maloney M.D. [id number] Hematocrit (Bld) [Volume fraction] 52.8 % Normal 41.0-53.0 [facility] Comment on above: Order Comment: Criti phylicia result acted upon time of test. Test performed at bedside. Performed By: #### 4 6932 #### LAB [address] [address] Garrett Maloney M.D. [id number] Hemoglobin (Bld) [Mass/Vol] 17.2 g/dL Normal 13.5-17. 5 [facility] Comment on above: Order Comment: Criti phylicia result acted upon time of test. Test performed at bedside. Performed By: #### 4 6903 #### LAB [address] [address] Garrett Maloney M.D. [id number] Oxygen saturation in Blood 84.5 % High 40.0-70.0 [facility] Comment on above: Order Comment: Criti phylicia result acted upon time of test. Test performed at bedside. Performed By: #### 4 6905 #### LAB [address] [address] Garrett Maloney M.D. [id number] PCO2 VENOUS 35.5 mm Hg Low 41.0-51.0 [facility] Comment on above: Order Comment: Criti phylicia result acted upon time of test. Test performed at bedside. Performed By: #### 4 6910 #### LAB [address] [address] Garrett Maloney M.D. [id number] PH VENOUS 7.13 Off scale low 7.32-7.42 [facility] Comment on above: Order Comment: Criti phylicia result acted upon time of test. Test performed at bedside. Performed By: #### 4 6942 #### LAB [address] [address] Garrett Maloney M.D. [id number] PO2 VENOUS 60 mm Hg High 25-40 [facility] Comment on above: Order Comment: Criti phylicia result acted upon time of test. Test performed at bedside. Performed By: #### 4 6932 #### LAB [address] [address] Garrett Maloney M.D. [id number] SPECIMEN SOURCE RADIANCE Not specified Normal [facility] Comment on above: Order Comment: Criti phylicia result acted upon time of test. Test performed at bedside. Performed By: #### 4 6932 #### LAB [address] [address] Garrett Maloney M.D. [id number] URINALYSISon 04-30-2024 BACTERIA, URINE None Seen Normal None Seen [facility] Comment on above: Order Comment: Injur y/Trauma or Illness?:Illness/Other How long have you had these symptoms (acute/chronic)?:Acute Reason for exam?:sob, hyperglycemia History of cancer?:NA Surgeries, chemotherapy, or radiation?:NA Type of Exam?:Initial Additional signs and symptoms?:. Performed By: #### 4 6625 #### LAB [address] [address] Garrett Maloney M.D. [id number] BILIRUBIN, URINE Negative Normal Negative [facility] Comment on above: Order Comment: Injur y/Trauma or Illness?:Illness/Other How long have you had these symptoms (acute/chronic)?:Acute Reason for exam?:sob, hyperglycemia History of cancer?:NA Surgeries, chemotherapy, or radiation?:NA Type of Exam?:Initial Additional signs and symptoms?:. Performed By: #### 4 6625 #### LAB [address] [address] Garrett Maloney M.D. [id number] BLOOD, URINE Negative Normal Negative [facility] Comment on above: Order Comment: Injur y/Trauma or Illness?:Illness/Other How long have you had these symptoms (acute/chronic)?:Acute Reason for exam?:sob, hyperglycemia History of cancer?:NA Surgeries, chemotherapy, or radiation?:NA Type of Exam?:Initial Additional signs and symptoms?:. Performed By: #### 4 6625 ####MH LAB [address] [address] Garrett Maloney M.D. [id number] Clarity (U) Clear Normal Clear [facility] Comment on above: Order Comment: Injur y/Trauma or Illness?:Illness/Other How long have you had these symptoms (acute/chronic)?:Acute Reason for exam?:sob, hyperglycemia History of cancer?:NA Surgeries, chemotherapy, or radiation?:NA Type of Exam?:Initial Additional signs and symptoms?:. Performed By: #### 4 6625 #### LAB [address] [address] Garrett Maloney M.D. [id number] Color (U) Colorless Normal Colorless, Yellow [facility] Comment on above: Order Comment: Injur y/Trauma or Illness?:Illness/Other How long have you had these symptoms (acute/chronic)?:Acute Reason for exam?:sob, hyperglycemia History of cancer?:NA Surgeries, chemotherapy, or radiation?:NA Type of Exam?:Initial Additional signs and symptoms?:. Performed By: #### 4 6625 #### LAB [address] [address] Garrett Maloney M.D. [id number] Glucose Ql (U) >=500 Abnormal Negative [facility] Comment on above: Order Comment: Injur y/Trauma or Illness?:Illness/Other How long have you had these symptoms (acute/chronic)?:Acute Reason for exam?:sob, hyperglycemia History of cancer?:NA Surgeries, chemotherapy, or radiation?:NA Type of Exam?:Initial Additional signs and symptoms?:. Performed By: #### 4 6625 #### LAB [address] [address] Garrett Maloney M.D. [id number] Ketones Ql (U) >=80 Abnormal Negative [facility] Comment on above: Order Comment: Injur y/Trauma or Illness?:Illness/Other How long have you had these symptoms (acute/chronic)?:Acute Reason for exam?:sob, hyperglycemia History of cancer?:NA Surgeries, chemotherapy, or radiation?:NA Type of Exam?:Initial Additional signs and symptoms?:. Performed By: #### 4 6681 #### LAB [address] [address] Garrett Maloney M.D. [id number] Leukocyte esterase Test strip Ql (U) Negative Normal Negative [facility] Comment on above: Order Comment: Injur y/Trauma or Illness?:Illness/Other How long have you had these symptoms (acute/chronic)?:Acute Reason for exam?:sob, hyperglycemia History of cancer?:NA Surgeries, chemotherapy, or radiation?:NA Type of Exam?:Initial Additional signs and symptoms?:. Performed By: #### 4 6625 #### LAB [address] [address] Garrett Maloney M.D. [id number] MUCUS, URINE Rare Normal None Seen, Rare [facility] Comment on above: Order Comment: Injur y/Trauma or Illness?:Illness/Other How long have you had these symptoms (acute/chronic)?:Acute Reason for exam?:sob, hyperglycemia History of cancer?:NA Surgeries, chemotherapy, or radiation?:NA Type of Exam?:Initial Additional signs and symptoms?:. Performed By: #### 4 6625 ####MH LAB [address] [address] Garrett Maloney M.D. [id number] NITRITE, URINE Negative Normal Negative [facility] Comment on above: Order Comment: Injur y/Trauma or Illness?:Illness/Other How long have you had these symptoms (acute/chronic)?:Acute Reason for exam?:sob, hyperglycemia History of cancer?:NA Surgeries, chemotherapy, or radiation?:NA Type of Exam?:Initial Additional signs and symptoms?:. Performed By: #### 4 6625 #### LAB [address] [address] Garrett Maloney M.D. [id number] pH (U) 5.0 [pH] Normal 5.0-7.0 [facility] Comment on above: Order Comment: Injur y/Trauma or Illness?:Illness/Other How long have you had these symptoms (acute/chronic)?:Acute Reason for exam?:sob, hyperglycemia History of cancer?:NA Surgeries, chemotherapy, or radiation?:NA Type of Exam?:Initial Additional signs and symptoms?:. Performed By: #### 4 6657 ####MH LAB [address] [address] Garrett Maloney M.D. [id number] PROTEIN, URINE Negative Normal Negative [facility] Comment on above: Order Comment: Injur y/Trauma or Illness?:Illness/Other How long have you had these symptoms (acute/chronic)?:Acute Reason for exam?:sob, hyperglycemia History of cancer?:NA Surgeries, chemotherapy, or radiation?:NA Type of Exam?:Initial Additional signs and symptoms?:. Performed By: #### 4 6696 #### LAB [address] [address] Garrett Maloney M.D. [id number] Specific gravity (U) [Rel density] 1.025 Normal 1.005-1.025 [facility] Comment on above: Order Comment: Injur y/Trauma or Illness?:Illness/Other How long have you had these symptoms (acute/chronic)?:Acute Reason for exam?:sob, hyperglycemia History of cancer?:NA Surgeries, chemotherapy, or radiation?:NA Type of Exam?:Initial Additional signs and symptoms?:. Performed By: #### 4 6688 #### LAB [address] [address] Garrett Maloney M.D. [id number] UROBILINOGEN, URINE <2.0 Normal <2.0 [facility] Comment on above: Order Comment: Injur y/Trauma or Illness?:Illness/Other How long have you had these symptoms (acute/chronic)?:Acute Reason for exam?:sob, hyperglycemia History of cancer?:NA Surgeries, chemotherapy, or radiation?:NA Type of Exam?:Initial Additional signs and symptoms?:. Performed By: #### 4 6689 #### LAB [address] [address] Garrett Maloney M.D. [id number] WBC, URINE < Normal 0-5 [facility] Comment on above: Order Comment: Injur y/Trauma or Illness?:Illness/Other How long have you had these symptoms (acute/chronic)?:Acute Reason for exam?:sob, hyperglycemia History of cancer?:NA Surgeries, chemotherapy, or radiation?:NA Type of Exam?:Initial Additional signs and symptoms?:. Performed By: #### 4 6675 ####[facility] [address] [facility] [place] [place] [address] Garrett Maloney M.D. [id number] XR CHEST PA/APon 04-30-2024 XR CHEST PA/AP EXAMINATION: 1-VIEW XR CHEST PA/AP 04/30/2024 COMPARISON: Chest, 08/28/2023. HISTORY: Dx: E10.10 (Type 1 diabetes mellitus with ketoacidosis without coma (HCC)) Injury/Trauma or Illness?:Illness/Ot her How long have you had these symptoms (acute/chronic)?:Ac judy SOB FINDINGS: The lungs are clear with no acute cardiopulmonary disease. No pulmonary edema, pneumothorax or pleural effusion. The heart, mediastinal structures and visualized bony structures are unremarkable. IMPRESSION: 1. No acute abnormality. GJT/mkv Workstation ID: [id number] Dictated by: SHADI ROJAS on [place] Apr 30, 2024 5:17:40 PM EDT Transcribed by: GANESH OSEGUERA on WedApr 30, 2024 5:23:04 PM EDT Finalized by: SHADI ROJAS on [place] Apr 30, 2024 9:54:22 PM EDT [facility] Comment on above: Order Comment: Injur y/Trauma or Illness?:Illness/Other How long have you had these symptoms (acute/chronic)?:Acute Reason for exam?:sob, hyperglycemia History of cancer?:NA Surgeries, chemotherapy, or radiation?:NA Type of Exam?:Initial Additional signs and symptoms?:. HbA1c (Bld) [Mass fraction]O rdered By: Jenni Constantino on 02-10-2024 Interpretation and review of laboratory results Abnormal [facility] Hematology and Cell countsOrdered By: Jenni Constantino on 02-10-2024 HbA1c (Bld) [Mass fraction] 10.4 % Abnormal 4.0 - 6. 0 % [facility] APTTon 08-29-2023 aPTT Coag (Bld) [Time] 27 s Oh [facility] Alcohol, Medicalon Ethanol [Mass/Vol] mg/dL NINF - 10 .00 mg/dL [facility] Comment on above: Alcohol cutoff: <10. 00 mg/dL = None Detected Basic metabolic 2000 panelon 08-29-2023 Anion gap [Moles/Vol] 16 mmol/L 10 - 2 0 mmol/L [facility] Calcium [Mass/Vol] 8.3 mg/dL Low 8.4 - 10. 2 mg/dL [facility] Chloride [Moles/Vol] 100 mmol/L 98 - 10 8 mmol/L [facility] Creatinine [Mass/Vol] 1.19 mg/dL 0.50 - 1.30 mg/dL [facility] GFR/1.73 sq M.predicted CKD-EPI (S/P/Bld) [Vol rate/Area] 85 - PINF [facility] Comment on above: Estimated GFR was ca lculated using the 2020 CKD-EPI creatinine equation. Glucose [Mass/Vol] 356 mg/dL High 65 - 99 mg/dL [facility] HCO3 [Moles/Vol] 20 mmol/L Low 21 - 32 mmol/L [facility] Interpretation and review of laboratory results Abnormal [facility] Potassium [Moles/Vol] 4.4 mmol/L 3.5 - 5.1 mmol/L [facility] Sodium [Moles/Vol] 132 mmol/L Low 135 - 145 mmol/L [facility] Urea nitrogen [Mass/Vol] 19 mg/dL 8 - 25 mg/d L [facility] Urea nitrogen/Creatinine [Mass ratio] 16.0 mg/mg 10.0 - 20.0 [facility] has implemented the eGFR calculation approach that does not have a coefficient for race that conforms to the NKF-ASN Task Force Recommendations. [facility] Anion gap [Moles/Vol] 16 mmol/L 10 - 2 0 mmol/L [facility] Calcium [Mass/Vol] 8.5 mg/dL 8.4 - 10. 2 mg/dL [facility] Chloride [Moles/Vol] 103 mmol/L 98 - 10 8 mmol/L [facility] Creatinine [Mass/Vol] 1.17 mg/dL 0.50 - 1.30 mg/dL [facility] GFR/1.73 sq M.predicted CKD-EPI (S/P/Bld) [Vol rate/Area] 87 - PINF [facility] Comment on above: Estimated GFR was ca lculated using the 2020 CKD-EPI creatinine equation. Glucose [Mass/Vol] 213 mg/dL High 65 - 99 mg/dL [facility] HCO3 [Moles/Vol] 21 mmol/L 21 - 32 mmol/L [facility] Potassium [Moles/Vol] 4.5 mmol/L 3.5 - 5.1 mmol/L [facility] Sodium [Moles/Vol] 135 mmol/L 135 - 145 mmol/L [facility] Urea nitrogen [Mass/Vol] 17 mg/dL 8 - 25 mg/d L [facility] Urea nitrogen/Creatinine [Mass ratio] 14.5 mg/mg 10.0 - 20.0 [facility] has implemented the eGFR calculation approach that does not have a coefficient for race that conforms to the NKF-ASN Task Force Recommendations. [facility] Anion gap [Moles/Vol] 11 mmol/L 10 - 2 0 mmol/L [facility] Calcium [Mass/Vol] 8.5 mg/dL 8.4 - 10. 2 mg/dL [facility] Chloride [Moles/Vol] 106 mmol/L 98 - 10 8 mmol/L [facility] Creatinine [Mass/Vol] 1.16 mg/dL 0.50 - 1.30 mg/dL [facility] GFR/1.73 sq M.predicted CKD-EPI (S/P/Bld) [Vol rate/Area] 88 - PINF [facility] Comment on above: Estimated GFR was ca lculated using the 2020 CKD-EPI creatinine equation. Glucose [Mass/Vol] 110 mg/dL High 65 - 99 mg/dL [facility] HCO3 [Moles/Vol] 24 mmol/L 21 - 32 mmol/L [facility] Interpretation and review of laboratory results Abnormal [facility] Potassium [Moles/Vol] 3.7 mmol/L 3.5 - 5.1 mmol/L [facility] Sodium [Moles/Vol] 137 mmol/L 135 - 145 mmol/L [facility] Urea nitrogen [Mass/Vol] 16 mg/dL 8 - 25 mg/d L [facility] Urea nitrogen/Creatinine [Mass ratio] 13.8 mg/mg 10.0 - 20.0 [facility] has implemented the eGFR calculation approach that does not have a coefficient for race that conforms to the NKF-ASN Task Force Recommendations. [facility] Anion gap [Moles/Vol] 13 mmol/L 10 - 2 0 mmol/L [facility] Calcium [Mass/Vol] 8.0 mg/dL Low 8.4 - 10. 2 mg/dL [facility] Chloride [Moles/Vol] 106 mmol/L 98 - 10 8 mmol/L [facility] Creatinine [Mass/Vol] 1.22 mg/dL 0.50 - 1.30 mg/dL [facility] GFR/1.73 sq M.predicted CKD-EPI (S/P/Bld) [Vol rate/Area] 83 - PINF [facility] Comment on above: Estimated GFR was ca lculated using the 2020 CKD-EPI creatinine equation. Glucose [Mass/Vol] 246 mg/dL High 65 - 99 mg/dL [facility] HCO3 [Moles/Vol] 17 mmol/L Low 21 - 32 mmol/L [facility] Interpretation and review of laboratory results Abnormal [facility] Potassium [Moles/Vol] 4.2 mmol/L 3.5 - 5.1 mmol/L [facility] Sodium [Moles/Vol] 132 mmol/L Low 135 - 145 mmol/L [facility] Urea nitrogen [Mass/Vol] 20 mg/dL 8 - 25 mg/d L [facility] Urea nitrogen/Creatinine [Mass ratio] 16.4 mg/mg 10.0 - 20.0 [facility] has implemented the eGFR calculation approach that does not have a coefficient for race that conforms to the NKF-ASN Task Force Recommendations. [facility] Basic metabolic 2000 panelOr dered By: Magda Jasso on 08-29-2023 Anion gap [Moles/Vol] 16 mmol/L 10 - 2 0 mmol/L [facility] Calcium [Mass/Vol] 7.8 mg/dL Low 8.4 - 10. 2 mg/dL [facility] Chloride [Moles/Vol] 105 mmol/L 98 - 10 8 mmol/L [facility] Creatinine [Mass/Vol] 1.23 mg/dL 0.50 - 1.30 mg/dL [facility] GFR/1.73 sq M.predicted CKD-EPI (S/P/Bld) [Vol rate/Area] 82 - PINF [facility] Comment on above: Estimated GFR was ca lculated using the 2020 CKD-EPI creatinine equation. Glucose [Mass/Vol] 247 mg/dL High 65 - 99 mg/dL [facility] HCO3 [Moles/Vol] 17 mmol/L Low 21 - 32 mmol/L [facility] Interpretation and review of laboratory results Abnormal [facility] Potassium [Moles/Vol] 4.3 mmol/L 3.5 - 5.1 mmol/L [facility] Sodium [Moles/Vol] 134 mmol/L Low 135 - 145 mmol/L [facility] Urea nitrogen [Mass/Vol] 20 mg/dL 8 - 25 mg/d L [facility] Urea nitrogen/Creatinine [Mass ratio] 16.3 mg/mg 10.0 - 20.0 [facility] has implemented the eGFR calculation approach that does not have a coefficient for race that conforms to the NKF-ASN Task Force Recommendations. [facility] Beta hydroxybutyrate [Moles/ Vol]on 08-29-2023 Interpretation and review of laboratory results Abnormal [facility] Interpretation and review of laboratory results Normal [facility] Interpretation and review of laboratory results Abnormal [facility] Interpretation and review of laboratory results Abnormal [facility] Beta-Hydroxybutyrateon 08-29 Beta hydroxybutyrate [Moles/Vol] 4.0 mmol/L High 0.0 - 0.3 mmol/L [facility] Beta hydroxybutyrate [Moles/Vol] 3.4 mmol/L High 0.0 - 0.3 mmol/L [facility] Beta hydroxybutyrate [Moles/Vol] 0.2 mmol/L 0.0 - 0.3 mmol/L [facility] Beta hydroxybutyrate [Moles/Vol] 3.0 mmol/L High 0.0 - 0.3 mmol/L [facility] Beta hydroxybutyrate [Moles/Vol] 3.1 mmol/L High 0.0 - 0.3 mmol/L [facility] CK [Catalytic activity/Vol]o n 08-29-2023 Interpretation and review of laboratory results Normal [facility] CPK no MBon 08-29-2023 CK [Catalytic activity/Vol] 60 U/L 60 - 225 U/L [facility] CRP [Mass/Vol]on 08-29-2023 [facility] CRP, Inflammationon 08-29-19 CRP [Mass/Vol] 17.1 mg/L High NINF - 10.0 mg/L [facility] D-Dimer, Quantitativeon Fibrin D-dimer FEU (PPP) [Mass/Vol] [facility] Interpretation and review of laboratory results Normal [facility] A D-dimer concentration of <0.5 micrograms per milliliter FEU is considered a low probability for pulmonary embolus (PE) and deep venous thrombosis (DVT). Results of this test should always be interpreted in conjunction with the patient's medical history,clinical presentation, and other findings. Clinical diagnosis should not be based on the results of the D-dimer alone. [facility] Ethanol [Mass/Vol]on 024 Interpretation and review of laboratory results Normal [facility] Ferritinon 08-29-2023 Ferritin [Mass/Vol] 483 ng/mL High 30 - 400 ng/mL [facility] Fibrinogenon 08-29-2023 Fibrinogen Coag (PPP) [Mass/Vol] 325 mg/dL 224 - 483 mg/dL [facility] Glucose (Bld) [Mass/Vol]on 0 08-29-2023 Glucose [Mass/Vol] 320 mg/dL High 65 - 99 mg/dL [facility] Interpretation and review of laboratory results Abnormal [facility] Glucose [Mass/Vol] 350 mg/dL High 65 - 99 mg/dL [facility] Interpretation and review of laboratory results Abnormal [facility] Glucose [Mass/Vol] 84 mg/dL 65 - 99 mg/dL [facility] Interpretation and review of laboratory results Normal [facility] Glucose [Mass/Vol] 101 mg/dL High 65 - 99 mg/dL [facility] Interpretation and review of laboratory results Abnormal [facility] Glucose [Mass/Vol] 131 mg/dL High 65 - 99 mg/dL [facility] Interpretation and review of laboratory results Abnormal [facility] Glucose [Mass/Vol] 181 mg/dL High 65 - 99 mg/dL [facility] Interpretation and review of laboratory results Abnormal [facility] Glucose [Mass/Vol] 188 mg/dL High 65 - 99 mg/dL [facility] Interpretation and review of laboratory results Abnormal [facility] Glucose [Mass/Vol] 205 mg/dL High 65 - 99 mg/dL [facility] Interpretation and review of laboratory results Abnormal [facility] HbA1c (Bld) [Mass fraction]O rdered By: Harpreet Barragan on 08-29-2023 Average glucose Estimated from glycated hemoglobin (Bld) [Mass/Vol] 217 mg/dL High 68 - 114 mg/dL [facility] Interpretation and review of laboratory results Abnormal [facility] Normal: 4.0% - 5.6% Increased risk for diabetes: 5.7% - 6.4% Diabetes: >= 6.5% Pediatrics: No established reference range Estimated average glucose: 68-114 mg/dL [facility] Hemoglobin [id number] By: Dinora Barragan on 08-29-2023 HbA1c (Bld) [Mass fraction] 9.2 % High 4.0 - 5. 6 % [facility] INR Coag (PPP) [Relative abdiel e]on 08-29-2023 Interpretation and review of laboratory results Normal [facility] PT Coag (PPP) [Time] 13.7 s [facility] During the induction phase of oral anticoagulation, the INR may not reflect the anticoagulation status of the patient. Therapeutic ranges for INR's are: Most clinical situations: INR 2.0-3.0 Mechanical Prosthetic Valve: INR 2.5-3.5 Critical: INR >5.0 [facility] LDHon 08-29-2023 LDH Lactate to pyruvate reaction [Catalytic activity/Vol] 110 U/L 100 - 250 U/L [facility] LDH Lactate to pyruvate reac tion [Catalytic activity/Vol]on 08-29-2023 Interpretation and review of laboratory results Normal [facility] Magnesium Levelon 08-29-2023 Magnesium [Mass/Vol] 2.0 mg/dL 1.6 - 2 .4 mg/dL [facility] Magnesium [Mass/Vol] 1.9 mg/dL 1.6 - 2 .4 mg/dL [facility] Magnesium [Mass/Vol] 2.2 mg/dL 1.6 - 2 .4 mg/dL [facility] Magnesium [Mass/Vol] 2.0 mg/dL 1.6 - 2 .4 mg/dL [facility] Magnesium [Mass/Vol]on 08-29 Interpretation and review of laboratory results Normal [facility] Interpretation and review of laboratory results Normal [facility] No Panel Informationon 08-29 [facility] Interpretation and review of laboratory results Abnormal [facility] Interpretation and review of laboratory results Normal [facility] Interpretation and review of laboratory results Normal [facility] Interpretation and review of laboratory results Normal [facility] Interpretation and review of laboratory results Abnormal [facility] POC Venous Blood Gas Panel-P ulmon 08-29-2023 Base excess Calc (BldV) [Moles/Vol] -8.4000 mmol/L Low -2.0 - 2.0 [facility] Calcium.ionized [Mass/Vol] 4.5 mg/dL 4 .5 - 5.3 mg/dL [facility] Carboxyhemoglobin (BldA) [Mass fraction] 2.0 High [facility] Comment on above: Reference Ranges: [place] Non-smokers: <1.5% Smokers: 1.5-5.0% Heavy Smokers: 5.0-9.0% Chloride [Moles/Vol] 104 mmol/L 98 - 10 8 mmol/L [facility] CO2 (BldV) [Partial pressure] 33.9 mm[Hg] Low [facility] Glucose post fast [Mass/Vol] 218 mg/dL High 65 - 99 mg/dL [facility] HCO3 (Bld) [Moles/Vol] 16.9 mmol/L Low 24.0 - 28.0 mmol/L [facility] Hematocrit (BldA) [Volume fraction] 48.3 % 41.0 - 53.0 % [facility] Hemoglobin (Bld) [Mass/Vol] 15.8 g/dL 13.5 - 17.5 g/dL [facility] Inhaled oxygen concentration 21 % [facility] Interpretation and review of laboratory results Abnormal [facility] Lactate [Moles/Vol] 1.4 mmol/L 0.6 - 2. 0 mmol/L [facility] Methemoglobin (BldA) [Mass fraction] % 0.0 - 2.0 % [facility] Oxygen (BldV) [Partial pressure] 94 mm[Hg] High [facility] Oxygen saturation in Venous blood 97.9 % High 40.0 - 70.0 % [facility] Oxyhemoglobin (BldA) [Mass fraction] 95.5 % No established reference range [facility] pH (BldV) 7.31 [pH] Low 7.32 - 7.42 [facility] Potassium [Moles/Vol] 4.2 mmol/L 3.5 - 5.1 mmol/L [facility] Sodium [Moles/Vol] 134 mmol/L Low 135 - 145 mmol/L [facility] Specimen source Nom (Unsp spec) Not specified [facility] PT/INRon 08-29-2023 INR Coag (PPP) [Relative time] 1.1 {INR} 0.8 - 1.1 [facility] Phosphate [Mass/Vol]on 08-29 Interpretation and review of laboratory results Normal [facility] Phosphoruson 08-29-2023 Phosphate [Mass/Vol] 3.4 mg/dL 2.7 - 4 .5 mg/dL [facility] Phosphate [Mass/Vol] 3.2 mg/dL 2.7 - 4 .5 mg/dL [facility] Phosphate [Mass/Vol] 3.2 mg/dL 2.7 - 4 .5 mg/dL [facility] Troponinon 08-29-2023 Delta Difference Troponin I 0 ng/L < -/+ 12 change [facility] Interp Troponin I Delta Change No biomarker evidence of cardiac injury. [facility] Troponin I 4 ng/L NINF - 59 ng/L [facility] aPTT Coag (Bld) [Time]on Therapeutic range for APTT's is 68 - 104 seconds [facility] Beta-Hydroxybutyrateon 08-28 Beta hydroxybutyrate [Moles/Vol] 5.9 mmol/L High 0.0 - 0.3 mmol/L [facility] CBC Auto Differentialon Basophils (Bld) [#/Vol] 0.04 10*3/uL [facility] Basophils/100 WBC (Bld) 0.7 % [facility] Eosinophils (Bld) [#/Vol] 0.12 10*3/uL [facility] Eosinophils/100 WBC (Bld) 2.2 % [facility] Erythrocyte distribution width (RBC) [Entitic vol] 12.2 % 11.6 - 14.8 % [facility] Hematocrit (Bld) [Volume fraction] 49.9 % 41.0 - 53.0 % [facility] Hemoglobin (Bld) [Mass/Vol] 17.0 g/dL 13.5 - 17.5 g/dL [facility] Immature granulocytes (Bld) [#/Vol] 0.03 10*3/uL [facility] Immature granulocytes/100 WBC (Bld) 0.50 % [facility] Comment on above: The IG parameter is the percentage of metamyelocytes, myelocytes and promyelocytes. An immature granulocyte count (IG) of 1% or more suggests the possibility of infection, an IG count of 3% is very likely related to an infection. Interpretation and review of laboratory results Abnormal [facility] Lymphocytes (Bld) [#/Vol] 0.78 10*3/uL Low [facility] Lymphocytes/100 WBC (Bld) 14.0 % [facility] MCH (RBC) [Entitic mass] 29.1 pg 26. 0 - 34.0 pg [facility] MCHC (RBC) [Mass/Vol] 34.1 g/dL 31.0 - 37.0 g/dL [facility] MCV (RBC) [Entitic vol] 85.4 fL 80.0 - 100.0 fL [facility] Monocytes (Bld) [#/Vol] 0.98 10*3/uL High [facility] Monocytes/100 WBC (Bld) 17.6 % [facility] Neutrophils (Bld) [#/Vol] 3.61 10*3/uL [facility] Neutrophils/100 WBC (Bld) 65.0 % [facility] Nucleated RBC (Bld) [#/Vol] 0.00 10*3/uL [facility] Nucleated RBC/100 WBC (Bld) [Ratio] 0.0 % [facility] Platelet mean volume (Bld) [Entitic vol] 9.4 fL 9.4 - 12.4 fL [facility] Platelets (Bld) [#/Vol] 260 10*3/uL [facility] RBC (Bld) [#/Vol] 5.84 10*6/uL [facility] W[facility] (Bld[facility] [#/Vol] 5.56 10*3/uL [facility]FLUENZA A,B MOLEC ARo 08-28-2023 SARS-CoV-2 (COVID-19) Ab IA Ql SARS-COV-2 (JANI): Detected INFLUENZA A (JANI): Not Detected INFLUENZA B (JANI): Not Detected Normal Not Detected [facility] Comment on above: Order Comment: This test was performed under the FDA's Emergency Use Authorization (EUA).Testing was performed using the Tomi Emily SARS-CoV-2 RT-PCR AND Influenza A/B Nucleic Acid Test on the Emily Jani System.This test has not been approved for use in asymptomatic patients and its performance in this patient population has not been evaluated. Negative results do not rule out the presence of SARS-CoV-2, influenza A, and/or influenza B.Fact sheets for the EUA can be found at the following links:For Healthcare Providers: https://www.fda.gov/media/144770/downloadFor Patients: https://www.fda.gov/media/332401/download Performed By: #### L [id number] ####[facility] [address], [place] [address] Garrett Maloney M.D. [id number] Comprehensive metabolic 2000 panelon 08-28-2023 Albumin [Mass/Vol] 4.2 g/dL 3.2 - 5.2 g/dL [facility] ALP [Catalytic activity/Vol] 91 U/L 40 - 140 U/L [facility] ALT [Catalytic activity/Vol] 49 U/L 14 - 65 U/L [facility] Anion gap [Moles/Vol] 21 mmol/L High 10 - 2 0 mmol/L [facility] AST [Catalytic activity/Vol] 20 U/L 0-50 U/L [facility] Bilirubin [Mass/Vol] 0.8 mg/dL 0.0 - 1 .3 mg/dL [facility] Calcium [Mass/Vol] 9.0 mg/dL 8.4 - 10. 2 mg/dL [facility] Chloride [Moles/Vol] 97 mmol/L Low 98 - 10 8 mmol/L [facility] Creatinine [Mass/Vol] 1.77 mg/dL High 0.50 - 1.30 mg/dL [facility] GFR/1.73 sq M.predicted CKD-EPI (S/P/Bld) [Vol rate/Area] 53 Low - PINF [facility] Comment on above: Estimated GFR was ca lculated using the 2020 CKD-EPI creatinine equation. Glucose [Mass/Vol] 384 mg/dL High 65 - 99 mg/dL [facility] HCO3 [Moles/Vol] 17 mmol/L Low 21 - 32 mmol/L [facility] Potassium [Moles/Vol] 5.0 mmol/L 3.5 - 5.1 mmol/L [facility] Protein [Mass/Vol] 7.8 g/dL 6.0 - 8.0 g/dL [facility] Sodium [Moles/Vol] 130 mmol/L Low 135 - 145 mmol/L [facility] Urea nitrogen [Mass/Vol] 21 mg/dL 8 - 25 mg/d L [facility] Urea nitrogen/Creatinine [Mass ratio] 11.9 mg/mg 10.0 - 20.0 [facility] has implemented the eGFR calculation approach that does not have a coefficient for race that conforms to the NKF-ASN Task Force Recommendations. [facility] Critical Careon 08-28-2023 Irish Florez MD 08/28/2023 10:29 PM Critical Care Performed by: Irsih Florez MD Authorized by: Irish Florez MD Total critical care time: 35 minutes Critical care time was exclusive of separately billable procedures and treating other patients. Critical care was necessary to treat or prevent imminent or life-threatening deterioration of the following conditions: metabolic crisis and endocrine crisis. Critical care was time spent personally by me on the following activities: blood draw for specimens, development of treatment plan with patient or surrogate, interpretation of cardiac output measurements, discussions with consultants, evaluation of patient's response to treatment, pulse oximetry, ordering and review of radiographic studies, ordering and review of laboratory studies, examination of patient, obtaining history from patient or surrogate, ordering and performing treatments and interventions, re-evaluation of patient's condition and review of old charts. Comments: DKA on insulin drip [facility] Glucose (Bld) [Mass/Vol]on 0 08-28-2023 Glucose [Mass/Vol] 223 mg/dL High 65 - 99 mg/dL [facility] Interpretation and review of laboratory results Abnormal [facility] Glucose [Mass/Vol] 275 mg/dL High 65 - 99 mg/dL [facility] Interpretation and review of laboratory results Abnormal [facility] Influenza virus A and B RNA and SARS-CoV-2 (COVID-19) N gene panel VICKI+probe (Resp)Ordered By: Kristan Gardner on 08-28-2023 FLUAV RNA VICKI+probe Ql (Unsp spec) Not detected Not Detected [facility] FLUBV RNA VICKI+probe Ql (Unsp spec) Not detected Not Detected [facility] Interpretation and review of laboratory results Abnormal [facility] SARS-CoV-2 (COVID-19) RNA VICKI+probe Ql (Resp) Detected Abnormal Not Detected [facility] This test was performed under the FDA's Emergency Use Authorization (EUA). Testing was performed using the Tomi Emily SARS-CoV-2 RT-PCR & Influenza A/B Nucleic Acid Test on the Emily Jani System. This test has not been approved for use in asymptomatic patients and its performance in this patient population has not been evaluated. Negative results do not rule out the presence of SARS-CoV-2, influenza A, and/or influenza B. Fact sheets for the EUA can be found at the following links: For Healthcare Providers: https://www.fda.gov /media/734145/downl oad For Patients: https://www.fda.gov /media/858285/downl oad [facility] No Panel Informationon 08-28 Extra Tube Hold for add-ons. [facility] Comment on above: Auto resulted. [facility] Interpretation and review of laboratory results Abnormal [facility] TSH DL <= 0.005 mIU/L Qnon 0 08-28-2023 Interpretation and review of laboratory results Normal [facility] TSH Qn 0.31 m[IU]/L [facility] Troponinon 08-28-2023 Troponin I 4 ng/L NINF - 59 ng/L [facility] Troponin I Interpretation Normal [facility] Urinalysison 08-28-2023 Bacteria Auto Ql (U) None Seen None Se en /hpf [facility] Bilirubin Ql (U) Negative Negative [facility] th Clarity Refractometry automated (U) Clear Clear [facility] Color (U) Yellow Colorless, Yellow [facility] Glucose Auto test strip (U) [Mass/Vol] >=500 Abnormal Negative mg/dL [facility] Hemoglobin Auto test strip Ql (U) Negative Negative [facility] Interpretation and review of laboratory results Abnormal [facility] Ketones (U) [Mass/Vol] mg/dL Abnormal Negat tano mg/dL [facility] Leukocyte esterase Auto test strip Ql (U) Negative Negative [facility] Mucus Auto (Urine sed) [#/Area] Rare None Seen, Rare /lpf [facility] Nitrite Auto test strip Ql (U) Negative Negative [facility] pH (U) 5.0 [pH] 5.0 - 7.0 [facility] Protein (U) [Mass/Vol] Negative Negat tano mg/dL [facility] RBC Auto (Urine sed) [#/Area] [facility] Specific gravity (U) [Rel density] 1.032 High 1.005 - 1.025 [facility] Urobilinogen (U) [Mass/Vol] mg/dL NINF - 2.0 mg/dL [facility] WBC Auto (Urine sed) [#/Area] [facility] Microscopic examination is performed on all urinalysis samples and only positive findings are reported. The test for blood on the chemical analytic portion of urinalysis may also be positive due to hemoglobinuria and myoglobinuria and if red blood cells are present they are quantified by microscopic examination. [facility] XR CHEST PA/APon 08-28-2023 XR CHEST PA/AP EXAMINATION: XR CHEST PA/AP 08/28/2023 8:44 pm HISTORY: ORDERING SYSTEM PROVIDED HISTORY: Patient is slightly tachypnic (possibly due to DKA?), TECHNOLOGIST PROVIDED HISTORY: Illness/Other Reason for exam: tachypnic Cancer History: NA Surgery, RadiationHistory: NA Encounter Type: Initial Additional signs and symptoms: n ORDERING SYSTEM PROVIDED DIAGNOSIS CODES: COMPARISON: Two-view chest from 03/22/2022. FINDINGS: Trachea, mediastinum and heart size are unremarkable. The lungs are clear and well aerated. No infiltrate or nodule or effusion or pneumothorax is noted. Diaphragm and bony elements are intact. IMPRESSION: Nonacute portable chest. Workstation ID: [id number] Dictated by: FREDI SOLOMON on Sat Aug 28, 2023 8:48:44 PM EST Transcribed by: FREDI SOLOMON on Sat Aug 28, 2023 8:48:44 PM EST Finalized by: FREDI SOLOMON on Sat Aug 28, 2023 8:48:44 PM EST [facility] Comment on above: Order Comment: Injur y/Trauma or Illness?:Illness/OtherHow long have you had these symptoms (acute/chronic)?:AcuteReason for exam?:tachypnicHistory of cancer?:NASurgeries, chemotherapy, or radiation?:NAType of Exam?:InitialAdditional signs and symptoms?:n XR Chest PA and Abdomen APon 08-28-2023 Nonacute portable chest. Workstation ID: [id number] Amartus RIS EXAMINATION: XR CHEST PA/AP 08/28/2023 8:44 pm HISTORY: ORDERING SYSTEM PROVIDED HISTORY: Patient is slightly tachypnic (possibly due to DKA?), TECHNOLOGIST PROVIDED HISTORY: Illness/Other Reason for exam: tachypnic Cancer History: NA Surgery, RadiationHistory: NA Encounter Type: Initial Additional signs and symptoms: n ORDERING SYSTEM PROVIDED DIAGNOSIS CODES: COMPARISON: Two-view chest from 03/22/2022. FINDINGS: Trachea, mediastinum and heart size are unremarkable. The lungs are clear and well aerated. No infiltrate or nodule or effusion or pneumothorax is noted. Diaphragm and bony elements are intact. GE RIS Fredi Solomon DO - 08/28/2023 EXAMINATION: XR CHEST PA/AP 08/28/2023 8:44 pm HISTORY: ORDERING SYSTEM PROVIDED HISTORY: Patient is slightly tachypnic (possibly due to DKA?), TECHNOLOGIST PROVIDED HISTORY: Illness/Other Reason for exam: tachypnic Cancer History: NA Surgery, RadiationHistory: NA Encounter Type: Initial Additional signs and symptoms: n ORDERING SYSTEM PROVIDED DIAGNOSIS CODES: COMPARISON: Two-view chest from 03/22/2022. FINDINGS: Trachea, mediastinum and heart size are unremarkable. The lungs are clear and well aerated. No infiltrate or nodule or effusion or pneumothorax is noted. Diaphragm and bony elements are intact. IMPRESSION: Nonacute portable chest. Workstation ID: [id number] [facility] Radiology Study observation (narrative) [facility] XR Chest PA and Abdomen APOr dered By: Fredi Solomon on 08-28-2023 [facility] Work Phone: HbA1c (Bld) [Mass fraction]o n 11-03-2021 Interpretation and review of laboratory results Abnormal [facility] Hemoglobin A1Con 022 HbA1c (Bld) [Mass fraction] 8.2 % Abnormal 4.0 - 6. 0 % [facility] Basic metabolic 2000 panelOr dered By: Peter Carmichael on 01-22-2021 Anion gap [Moles/Vol] 8 mmol/L Low 10 - 2 0 mmol/L [facility] Calcium [Mass/Vol] 8.9 mg/dL 8.4 - 10. 2 mg/dL [facility] Chloride [Moles/Vol] 104 mmol/L 98 - 10 8 mmol/L [facility] Creatinine [Mass/Vol] 1.15 mg/dL 0.50 - 1.30 [facility] GFR/1.73 sq M.predicted CKD-EPI (S/P/Bld) [Vol rate/Area] 88 >=60 mL/min/1.73 m2 [facility] GFR/1.73 sq M.predicted CKD-EPI (S/P/Bld) [Vol rate/Area] 102 >=60 mL/min/1.73 m2 [facility] Glucose [Mass/Vol] 349 mg/dL High 65 - 99 mg/dL [facility] HCO3 [Moles/Vol] 26 mmol/L 21 - 32 mmol/L [facility] Interpretation and review of laboratory results Abnormal [facility] Potassium [Moles/Vol] 4.0 mmol/L 3.5 - 5.1 mmol/L [facility] Sodium [Moles/Vol] 134 mmol/L Low 135 - 145 mmol/L [facility] Urea nitrogen [Mass/Vol] 25 mg/dL 8 - 25 mg/d L [facility] Urea nitrogen/Creatinine [Mass ratio] 21.7 mg/mg High [facility] The eGFR should be used for monitoring renal function only and not for medication dosing. [facility] CBC WITH AUTO DIFFERENTIALOr dered By: Peter Carmichael on 01-22-2021 Basophils (Bld) [#/Vol] 0.08 10*3/uL [facility] Basophils/100 WBC (Bld) 1.7 % [facility] Eosinophils (Bld) [#/Vol] 0.35 10*3/uL [facility] Eosinophils/100 WBC (Bld) 7.6 % [facility] Erythrocyte distribution width (RBC) [Entitic vol] 11.7 % 11.6 - 14.8 % [facility] Hematocrit (Bld) [Volume fraction] 46.0 % 41.0 - 53.0 % [facility] Hemoglobin (Bld) [Mass/Vol] 16.4 g/dL 13.5 - 17.5 g/dL [facility] Immature granulocytes (Bld) [#/Vol] 0.01 10*3/uL [facility] Immature granulocytes/100 WBC (Bld) 0.20 % [facility] Comment on above: The IG parameter is the percentage of metamyelocytes, myelocytes and promyelocytes. An immature granulocyte count (IG) of 1% or more suggests the possibility of infection, an IG count of 3% is very likely related to an infection. Lymphocytes (Bld) [#/Vol] 1.35 10*3/uL [facility] Lymphocytes/100 WBC (Bld) 29.3 % [facility] MCH (RBC) [Entitic mass] 29.8 pg 26. 0 - 34.0 pg [facility] MCHC (RBC) [Mass/Vol] 35.7 g/dL 31.0 - 37.0 g/dL [facility] MCV (RBC) [Entitic vol] 83.6 fL 80.0 - 100.0 fL [facility] Monocytes (Bld) [#/Vol] 0.49 10*3/uL [facility] Monocytes/100 WBC (Bld) 10.6 % [facility] Neutrophils (Bld) [#/Vol] 2.33 10*3/uL [facility] Neutrophils/100 WBC (Bld) 50.6 % [facility] Nucleated RBC (Bld) [#/Vol] 0.00 10*3/uL [facility] Nucleated RBC/100 WBC (Bld) [Ratio] 0.0 % [facility] Platelet mean volume (Bld) [Entitic vol] 9.5 fL 9.4 - 12.4 fL [facility] Platelets (Bld) [#/Vol] 253 10*3/uL [facility] RBC (Bld) [#/Vol] 5.50 10*6/uL [facility] WBC (Bld) [#/Vol] 4.61 10*3/uL [facility] [Catalytic activity/Vol]O rdered By: Peter Carmichael on 01-22-2021 Interpretation and review of laboratory results Normal [facility] CPK NO MBOrdered By: Peter vences on 01-22-2021 CK [Catalytic activity/Vol] 152 U/L 60 - 225 U/L [facility] CT Upper Extremity Right Sof t Tissue With ContrastOrdered By: Peter Carmichael on 01-22-2021 No obvious etiology for right-sided arm swelling and discoloration reported in history. Consider upper extremity DVT ultrasound for further evaluation. Workstation ID: [id number] [facility] EXAMINATION: CT UPPER EXTREMITY RIGHT SOFT TISSUE WITH CONTRAST HISTORY: ORDERING SYSTEM PROVIDED HISTORY: Soft tissue mass, upper arm, spontaneous hemorrhage, TECHNOLOGIST PROVIDED HISTORY: Illness/Other Reason for exam: RIGHT SIDED ARM SWELLING AND DISCOLORATION from upper bicep thru fingertips, throbbing Encounter Type: Initial Additional signs and symptoms: ORDERING SYSTEM PROVIDED DIAGNOSIS CODES: COMPARISON: None TECHNIQUE: Dose reduction techniques were achieved by using automated exposure control and/or adjustment of mA and/or kV according to patient size and/or use of iterative reconstruction technique. Contrast enhanced CT right upper extremity. CONTRAST: IOPAMIDOL 76 % INTRAVENOUS SOLUTION - 75 mL, FINDINGS: Reported soft tissue mass in the upper arm is not definitively visualized. Muscles appear normal. Neurovascular structures appear normal. Superficial soft tissues appear normal. No elbow joint effusion. Osseous structures appear normal. [facility] Interface, Rad In Fu[employer] Speechq - 01/22/2021 9:51 PM EDT EXAMINATION: CT UPPER EXTREMITY RIGHT SOFT TISSUE WITH CONTRAST HISTORY: ORDERING SYSTEM PROVIDED HISTORY: Soft tissue mass, upper arm, spontaneous hemorrhage, TECHNOLOGIST PROVIDED HISTORY: Illness/Other Reason for exam: RIGHT SIDED ARM SWELLING AND DISCOLORATION from upper bicep thru fingertips, throbbing Encounter Type: Initial Additional signs and symptoms: ORDERING SYSTEM PROVIDED DIAGNOSIS CODES: COMPARISON: None TECHNIQUE: Dose reduction techniques were achieved by using automated exposure control and/or adjustment of mA and/or kV according to patient size and/or use of iterative reconstruction technique. Contrast enhanced CT right upper extremity. CONTRAST: IOPAMIDOL 76 % INTRAVENOUS SOLUTION - 75 mL, FINDINGS: Reported soft tissue mass in the upper arm is not definitively visualized. Muscles appear normal. Neurovascular structures appear normal. Superficial soft tissues appear normal. No elbow joint effusion. Osseous structures appear normal. IMPRESSION: No obvious etiology for right-sided arm swelling and discoloration reported in history. Consider upper extremity DVT ultrasound for further evaluation. Workstation ID: [id number] [facility] D-DIMER, QUANTITATIVEOrdered By: Peter Carmichael on 01-22-2021 Fibrin D-dimer FEU (PPP) [Mass/Vol] 0.34 0.27 - 0.49 mcg/mL FEU [facility] Interpretation and review of laboratory results Normal [facility] A D-dimer concentration of <0.5 micrograms per milliliter FEU is considered a low probability for pulmonary embolus (PE) and deep venous thrombosis (DVT). Results of this test should always be interpreted in conjunction with the patient's medical history,clinical presentation, and other findings. Clinical diagnosis should not be based on the results of the D-dimer alone. [facility] INR Coag (PPP) [Relative abdiel e]Ordered By: Peter Carmichael on 01-22-2021 Interpretation and review of laboratory results Normal [facility] PT Coag (PPP) [Time] 12.1 s [facility] During the induction phase of oral anticoagulation, the INR may not reflect the anticoagulation status of the patient. Therapeutic ranges for INR's are: Most clinical situations: INR 2.0-3.0 Mechanical Prosthetic Valve: INR 2.5-3.5 Critical: INR >5.0 [facility] PT/INROrdered By: Peter Murillo er on 01-22-2021 INR Coag (PPP) [Relative time] 0.9 {INR} [facility] SARS-COV-2,NAAon 09-15-2020 SARS-COV-2, VICKI Not Detected Normal [facility] Comment on above: Result Comment: Refe rence range: Not Detected (NOTE) This nucleic acid amplification test was developed and its performance characteristics determined by [facility]. Nucleic acid amplification tests include RT-PCR and TMA. This test has not been FDA cleared or approved. This test has been authorized by FDA under an Emergency Use Authorization (EUA). This test is only authorized for the duration of time the declaration that circumstances exist justifying the authorization of the emergency use of in vitro diagnostic tests for detection of SARS-CoV-2 virus and/or diagnosis of COVID-19 infection under section 564(b)(1) of the Act, 21 U.S.C. 360bbb-3(b) (1), unless the authorization is terminated or revoked sooner. When diagnostic testing is negative, the possibility of a false negative result should be considered in the context of a patient's recent exposures and the presence of clinical signs and symptoms consistent with COVID-19. An individual without symptoms of COVID- 19 and who is not shedding SARS-CoV-2 virus would expect to have a negative (not detected) result in this assay. HEMOGLOBIN A1Con 01-22-2020 HbA1c (Bld) [Mass fraction] 126 MG/DL Normal [facility] Comment on above: Performed By: #### H BA1E #### [place] [address] HbA1c (Bld) [Mass fraction] 6.0 % Normal [facility] Comment on above: Result Comment: Diag nosis of Diabetes-Adults Non-Diabetic: < or = 5.6% Increased risk for developing diabetes: 5.7-6.4% Diagnostic of diabetes: > or = 6.5% . Monitoring of Diabetes Age (y) Therapeutic Goal (%) Adults: >18 <7.0 Pediatrics: 13-18 <7.5 7-12 <8.0 0- 6 7.5-8.5 [place] [employer]. Diabetes Care 33(S1), Aug 2009. Performed By: #### H BA1E #### [address] [address] LIPID PANEL (CORONARY RISK 2 )on 01-22-2020 Cholesterol [Mass/Vol] 129 mg/dL Normal 0 - 199 [facility] Comment on above: Result Comment: . AGE DESIRABLE BORDERLINE HIGH HIGH 0-19 Y 0 - 169 170 - 199 >/= 200 20-24 Y 0 - 189 190 - 224 >/= 225 >24 Y 0 - 199 200 - 239 >/= 240 All ranges are based on fasting samples. Specific therapeutic targets will vary based on patient-specific cardiac risk. . Pediatric guidelines reference:Pediatrics 2011, 128(S5). Adult guidelines reference: NCEP ATPIII Guidelines, ROSELINE 2001, 258:2486-97 . Venipuncture immediately after or during the administration of Metamizole may lead to falsely low results. Testing should be performed immediately prior to Metamizole dosing. Performed By: #### L IPID #### [address] [address] Cholesterol in HDL [Mass/Vol] 51.0 mg/dL Normal [facility] Comment on above: Result Comment: . AGE VERY LOW LOW NORMAL HIGH 0-19 Y < 35 < 40 40-45 ---- 20-24 Y ---- < 40 >45 ---- >24 Y ---- < 40 40-60 >60 . Performed By: #### L IPID #### [address] [address] Cholesterol in LDL [Mass/Vol] 69 mg/dL Normal 0 - 119 [facility] Comment on above: Result Comment: . NEAR BORD AGE DESIRABLE OPTIMAL HIGH HIGH VERY HIGH 0-19 Y 0 - 109 --- 110-129 >/= 130 ---- 20-24 Y 0 - 119 --- 120-159 >/= 160 ---- >24 Y 0 - 99 100-129 130-159 160-189 >/=190 . Performed By: #### L IPID #### [address] [address] Cholesterol in VLDL [Mass/Vol] 9 mg/dL Normal 0 - 40 [facility] Comment on above: Performed By: #### L IPID #### [address] [address] Cholesterol.total/Cholester ol in HDL [Mass ratio] 2.5 {ratio} Normal [facility] Comment on above: Result Comment: REF VALUES DESIRABLE < 3.4 HIGH RISK > 5.0 Performed By: #### L IPID #### [address] [address] Triglyceride [Mass/Vol] 44 mg/dL Normal 0 - 149 [facility] Comment on above: Result Comment: . AGE DESIRABLE BORDERLINE HIGH HIGH VERY HIGH 0 D-90 D 19 - 174 ---- ---- ---- 91 D- 9 Y 0 - 74 75 - 99 >/= 100 ---- 10-19 Y 0 - 89 90 - 129 >/= 130 ---- 20-24 Y 0 - 114 115 - 149 >/= 150 ---- >24 Y 0 - 149 150 - 199 200- 499 >/= 500 . Venipuncture immediately after or during the administration of Metamizole may lead to falsely low results. Testing should be performed immediately prior to Metamizole dosing. Performed By: #### L IPID #### [facility] [address] [place] [address] Nutrition-[place] 10-25-2019 Nutrition-Adult Reason For Visit Reason For Visit: Patient is here for initial nutrition assessment. Medical Diagnosis Assessed 1. Diabetes mellitus type 1 (250.01) (E10.9) Current Meds Insulin Syringe/Needle 28G X 1/2" 0.5 ML; USE DIRECTED; Therapy: [id number] to (Last Rx:[id number]) Requested for: [id number] Ordered Lantus 100 UNIT/ML Subcutaneous Solution; INJECT 15 UNIT Bedtime; Therapy: 25Oct2019 to Recorded NovoLIN 70/30 (70-30) 100 UNIT/ML Subcutaneous Suspension; INJECT 10 UNIT 3 times daily; Therapy: 25Oct2019 to Recorded Vitals Vital Signs Printed in Appendix #1 below. Results/Data Nutrition Lab Ranges: Glucose: Optimal range 74 - 99 mg/dL 66-500 Hemoglobin A1C: Non-Diabetic /=6.5 %; Diabetes Therapeutic goal <7.0 % 12.8 History of Present Illness Blood Glucose Levels: 66-500. Food/Nutrition Related History Pt seeing RDN for diabetes nutrition education. States he checks his blood sugars 3x/day and results range from 66-500. Has started taking insulin. Does Novolin 70/30 3x/day and 15U Lantus at night. Has found that blood sugars have been better controlled since starting insulin. Since diabetes dx pt has changed eating habits. Currently pt does not usually eat breakfast. For lunch he will have a lunch meat sandwich with cheese on whole grain bread with a yogurt and a fruit. For dinner he has been having salads. He usually puts pollack bits, nuts, fruit or dried fruit on with raspberry vinaigrette dressing. Pt drinks about 1/4 gallon of milk per day and water. Appetite: Good Dining Out: Rare to none. Pt has reduced eating out since diabetes dx Estimated Nutrient Needs Estimated Nutrient Needs_UH: Estimated Nutrient Needs for Maintenance: 2579 kcals/day, 76 gms protein/day and 2000 ml fluid/day. Nutrition Diagnosis Altered nutrition-related laboratory values related to diabtes as evidenced by hemoglobin A1c 12.8%. Nutrition Intervention Nutrition Interventions: Food/Nutrient Delivery: carb counting diet, consistent carbohydrate diet and general healthy diet Purpose of the Nutrition Education: Provided diet education on foods that contain carbohydrates, carbohydrate counting, nutrition facts label reading, portion sizes, and general healthy eating. Recommended Modifications: Recommend 3-4 carbohydrate servings per meal (45-60g) and pair carbohydrate foods with a fat or protein food to stabilize blood sugar. Nutrition Education Material/Handout Provided: Planning Healthy Meals NovoNordisk and Choose Your Foods AND. Nutrition Goals/Recommendatio ns Nutritional Goals: blood glucose control, Carbohydrate Consistency , consistent meal/snack pattern , Decreased intake of added sugars, normalized fasting and postprandial blood glucose and reduced Hgb A1c. Fruit: increase Vegetables: increase Whole Grains: increase Nutritional Recommendations:. Consume 3-4 carbohydrate servings per meal (45-60g) Pair carbohydrate foods with a fat or protein containing food to stabilize blood sugar Increase intake of nonstarchy vegetables. Readiness to Change: Fair Level of Understanding: Fair Anticipated Compliant: Fair Time Time Stamp_UH: Time Spent With Patient: 45 minutes of which greater than 50 percent was spent counseling and or coordinating care. Signatures Electronically signed by : BÁRBARA Levin; Oct 25 2019 2:53PM EST (Author) Appendix #1 Vital Signs Patient: EVERARDO ESCOBAR; : 1995; Recorded: 25Oct2019 09:16AMRecorded: [id number] 09:25AMRecorded: 12Sep2019 08:39AM [id number] Height6 ft 1 in6 ft 1 in6 ft 1.62 in [id number] lb 181 lb 187 lb BMI [id number] 824.26 BSA Calculated2.192.062 .1 Fall Screeninga) No falls within the last year Normal [facility] GAD65 ABon 09-20-2019 GAD65 AB 1.41 nmol/L High <= 0.02 [facility] Comment on above: Result Comment: The following antibody was identified: Glutamic Acid Decarboxylase. * This profile is consistent with predisposition to thyrogastric disorders, including thyroiditis, pernicious anemia, and type 1 diabetes, but has low specificity for neurological autoimmunity. GAD65 antibody values less than 2.00 nmol/L have a lower positive predictive value for neurological autoimmunity than values of 20.0 nmol/L and higher. * ADDITIONAL INFORMATION This test was developed and its performance characteristics determined by [facility] in a manner consistent with CLIA requirements. This test has not been cleared or approved by the U.S. Food and Drug Administration. Test Performed by: [facility] - [place] [id number] Regional Clinical Director: Serafin Stanford M.D. Ph.D.; CLIA# [id number] Performed By: #### G AD65 #### [facility] [address] [place] [address] HEMOGLOBIN A1Con 08-03-2019 HbA1c (Bld) [Mass fraction] 321 MG/DL [facility] Comment on above: Performed By: #### H BA1E #### [address] [address] HbA1c (Bld) [Mass fraction] 12.8 % Normal [facility] Comment on above: Result Comment: Diag nosis of Diabetes-Adults Non-Diabetic: < or = 5.6% Increased risk for developing diabetes: 5.7-6.4% Diagnostic of diabetes: > or = 6.5% . Monitoring of Diabetes Age (y) Therapeutic Goal (%) Adults: >18 <7.0 Pediatrics: 13-18 <7.5 7-12 <8.0 0- 6 7.5-8.5 [place] [employer]. Diabetes Care 33(S1), Aug 2009. Performed By: #### H BA1E #### [address] [address] CBCon 08-02-2019 Erythrocyte distribution width (RBC) [Ratio] Canceled [facility] Comment on above: Order Comment: TEST CBC WAS CANCELLED, 08/02/2019 17:01 DUPLICATE ORDER. Performed By: #### C BC #### [address] [address] Hematocrit (Bld) [Volume fraction] Canceled [facility] Comment on above: Order Comment: TEST CBC WAS CANCELLED, 08/02/2019 17:01 DUPLICATE ORDER. Performed By: #### C BC #### [address] [address] Hemoglobin (Bld) [Mass/Vol] Canceled [facility] Comment on above: Order Comment: TEST CBC WAS CANCELLED, 08/02/2019 17:01 DUPLICATE ORDER. Performed By: #### C BC #### [address] [address] MCHC (RBC) [Mass/Vol] Canceled [facility] Comment on above: Order Comment: TEST CBC WAS CANCELLED, 08/02/2019 17:01 DUPLICATE ORDER. Performed By: #### C BC #### [address] [address] MCV (RBC) [Entitic vol] Canceled Normal [facility] Comment on above: Order Comment: TEST CBC WAS CANCELLED, 08/02/2019 17:01 DUPLICATE ORDER. Performed By: #### C BC #### [address] [address] Platelets (Bld) [#/Vol] Canceled Normal [facility] Comment on above: Order Comment: TEST CBC WAS CANCELLED, 08/02/2019 17:01 DUPLICATE ORDER. Performed By: #### C BC #### [address] [address] RBC (Bld) [#/Vol] Canceled Normal [facility] Comment on above: Order Comment: TEST CBC WAS CANCELLED, 08/02/2019 17:01 DUPLICATE ORDER. Performed By: #### C BC #### [address] [address] WBC (Bld) [#/Vol] Canceled Normal [facility] Comment on above: Order Comment: TEST CBC WAS CANCELLED, 08/02/2019 17:01 DUPLICATE ORDER. Performed By: #### C BC #### [address] [address] Erythrocyte distribution width (RBC) [Ratio] 12.7 % Normal 11.5 - 14.5 [facility] Comment on above: Performed By: #### C BC #### [address] [address] Hematocrit (Bld) [Volume fraction] 49.4 % Normal 41.0 - 52.0 [facility] Comment on above: Performed By: #### C BC #### [address] [address] Hemoglobin (Bld) [Mass/Vol] 16.9 g/dL Normal 13.5 - 1 7.5 [facility] Comment on above: Performed By: #### C BC #### [address] [address] MCHC (RBC) [Mass/Vol] 34.2 g/dL Normal 32.0 - 36.0 [facility] Comment on above: Performed By: #### C BC #### [address] [address] MCV (RBC) [Entitic vol] 87 fL Normal 80 - 100 [facility] Comment on above: Performed By: #### C BC #### [address] [address] Platelets (Bld) [#/Vol] 263 10*3/uL Normal 150 - 450 [facility] Comment on above: Performed By: #### C BC #### [address] [address] RBC (Bld) [#/Vol] 5.68 x10E12/L Normal 4.50 - 5.90 [facility] Comment on above: Performed By: #### C BC #### [address] [address] WBC (Bld) [#/Vol] 4.6 10*3/uL Normal 4.4 - 11.3 [facility] Comment on above: Performed By: #### C BC #### [address] [address] COMPREHENSIVE PANELon 2018 Albumin [Mass/Vol] 4.7 g/dL Normal 3.4 - 5.0 [facility] Comment on above: Performed By: #### C MP #### [address] [address] ALP [Catalytic activity/Vol] 95 U/L Normal 33 - 120 [facility] Comment on above: Performed By: #### C MP #### [address] [address] ALT [Catalytic activity/Vol] 24 U/L Normal 10 - 52 [facility] Comment on above: Result Comment: Jami ents treated with Sulfasalazine may generate falsely decreased results for ALT. Performed By: #### C MP #### [address] [address] Anion gap [Moles/Vol] 12 mmol/L Normal 10 - 20 [facility] Comment on above: Performed By: #### C MP #### [address] [address] AST [Catalytic activity/Vol] 16 U/L Normal 9 - 39 [facility] Comment on above: Performed By: #### C MP #### [address] [address] Bilirubin [Mass/Vol] 1.3 mg/dL High 0.0 - 1.2 [facility] Comment on above: Performed By: #### C MP #### [address] [address] Calcium [Mass/Vol] 9.4 mg/dL Normal 8.6 - 10.3 [facility] Comment on above: Performed By: #### C MP #### [address] [address] Chloride [Moles/Vol] 100 mmol/L Normal 98 - 107 [facility] Comment on above: Performed By: #### C MP #### [address] [address] Creatinine [Mass/Vol] 0.97 mg/dL Normal 0.50 - 1.30 [facility] Comment on above: Performed By: #### C MP #### [address] [address] GFR- AM. >60 Normal >60 [facility] Comment on above: Result Comment: CALC ULATIONS OF ESTIMATED GFR ARE PERFORMED USING THE MDRD STUDY EQUATION FOR THE IDMS-TRACEABLE CREATININE METHODS. CLIN CHEM 2007;53:766-72 Performed By: #### C MP #### [address] [address] GFR-NON AM. >60 Normal >60 [facility] Comment on above: Performed By: #### C MP #### [address] [address] Glucose [Mass/Vol] 395 mg/dL High 74 - 99 [facility] Comment on above: Performed By: #### C MP #### [address] [address] HCO3 (Bld) [Moles/Vol] 28 mmol/L Normal 21 - 32 [facility] Comment on above: Performed By: #### C MP #### [address] [address] Potassium [Moles/Vol] 3.5 mmol/L Normal 3.5 - 5.3 [facility] Comment on above: Performed By: #### C MP #### [address] [address] Protein [Mass/Vol] 6.9 g/dL Normal 6.4 - 8.2 [facility] Comment on above: Performed By: #### C MP #### [address] [address] Sodium [Moles/Vol] 136 mmol/L Normal 136 - 145 [facility] Comment on above: Performed By: #### C MP #### [address] [address] Urea nitrogen [Mass/Vol] 10 mg/dL Normal 6 - 23 [facility] Comment on above: Performed By: #### C MP #### [address] [address] Albumin [Mass/Vol] Canceled Normal [facility] Comment on above: Order Comment: TEST COMPREHENSIVE PANEL WAS CANCELLED, 08/02/2019 17:01 DUPLICATE ORDER. Performed By: #### C MP #### [address] [address] ALP [Catalytic activity/Vol] Canceled Normal [facility] Comment on above: Order Comment: TEST COMPREHENSIVE PANEL WAS CANCELLED, 08/02/2019 17:01 DUPLICATE ORDER. Performed By: #### C MP #### [address] [address] ALT [Catalytic activity/Vol] Canceled [facility] Comment on above: Order Comment: TEST COMPREHENSIVE PANEL WAS CANCELLED, 08/02/2019 17:01 DUPLICATE ORDER. Result Comment: Jami ents treated with Sulfasalazine may generate falsely decreased results for ALT. Performed By: #### C MP #### [address] [address] Anion gap [Moles/Vol] Canceled Normal [facility] Comment on above: Order Comment: TEST COMPREHENSIVE PANEL WAS CANCELLED, 08/02/2019 17:01 DUPLICATE ORDER. Performed By: #### C MP #### [address] [address] AST [Catalytic activity/Vol] Canceled Normal [facility] Comment on above: Order Comment: TEST COMPREHENSIVE PANEL WAS CANCELLED, 08/02/2019 17:01 DUPLICATE ORDER. Performed By: #### C MP #### [address] [address] Bilirubin [Mass/Vol] Canceled Normal [facility] Comment on above: Order Comment: TEST COMPREHENSIVE PANEL WAS CANCELLED, 08/02/2019 17:01 DUPLICATE ORDER. Performed By: #### C MP #### [address] [address] Calcium [Mass/Vol] Canceled [facility] Comment on above: Order Comment: TEST COMPREHENSIVE PANEL WAS CANCELLED, 08/02/2019 17:01 DUPLICATE ORDER. Performed By: #### C MP #### [address] [address] Chloride [Moles/Vol] Canceled [facility] Comment on above: Order Comment: TEST COMPREHENSIVE PANEL WAS CANCELLED, 08/02/2019 17:01 DUPLICATE ORDER. Performed By: #### C MP #### [address] [address] Creatinine [Mass/Vol] Canceled [facility] Comment on above: Order Comment: TEST COMPREHENSIVE PANEL WAS CANCELLED, 08/02/2019 17:01 DUPLICATE ORDER. Performed By: #### C MP #### [address] [address] GFR- AM. Canceled [facility] Comment on above: Order Comment: TEST COMPREHENSIVE PANEL WAS CANCELLED, 08/02/2019 17:01 DUPLICATE ORDER. Result Comment: CALC ULATIONS OF ESTIMATED GFR ARE PERFORMED USING THE MDRD STUDY EQUATION FOR THE IDMS-TRACEABLE CREATININE METHODS. CLIN CHEM 2007;53:766-72 Performed By: #### C MP #### [address] [address] GFR-NON AM. Canceled [facility] Comment on above: Order Comment: TEST COMPREHENSIVE PANEL WAS CANCELLED, 08/02/2019 17:01 DUPLICATE ORDER. Performed By: #### C MP #### [address] [address] Glucose [Mass/Vol] Canceled [facility] Comment on above: Order Comment: TEST COMPREHENSIVE PANEL WAS CANCELLED, 08/02/2019 17:01 DUPLICATE ORDER. Performed By: #### C MP #### [address] [address] HCO3 (Bld) [Moles/Vol] Canceled [facility] Comment on above: Order Comment: TEST COMPREHENSIVE PANEL WAS CANCELLED, 08/02/2019 17:01 DUPLICATE ORDER. Performed By: #### C MP #### [address] [address] Potassium [Moles/Vol] Canceled [facility] Comment on above: Order Comment: TEST COMPREHENSIVE PANEL WAS CANCELLED, 08/02/2019 17:01 DUPLICATE ORDER. Performed By: #### C MP #### [address] [address] Protein [Mass/Vol] Canceled [facility] Comment on above: Order Comment: TEST COMPREHENSIVE PANEL WAS CANCELLED, 08/02/2019 17:01 DUPLICATE ORDER. Performed By: #### C MP #### [address] [address] Sodium [Moles/Vol] Canceled [facility] Comment on above: Order Comment: TEST COMPREHENSIVE PANEL WAS CANCELLED, 08/02/2019 17:01 DUPLICATE ORDER. Performed By: #### C MP #### [address] [address] Urea nitrogen [Mass/Vol] Canceled [facility] Comment on above: Order Comment: TEST COMPREHENSIVE PANEL WAS CANCELLED, 08/02/2019 17:01 DUPLICATE ORDER. Performed By: #### C MP #### [address] [address] HEMOGLOBIN A1Con 08-02-2019 HbA1c (Bld) [Mass fraction] Canceled [facility] Comment on above: Order Comment: TEST HEMOGLOBIN A1C WAS CANCELLED, 08/02/2019 17:01 DUPLICATE ORDER. Result Comment: Diag nosis of Diabetes-Adults Non-Diabetic: < or = 5.6% Increased risk for developing diabetes: 5.7-6.4% Diagnostic of diabetes: > or = 6.5% . Monitoring of Diabetes Age (y) Therapeutic Goal (%) Adults: >18 <7.0 Pediatrics: 13-18 <7.5 7-12 <8.0 0- 6 7.5-8.5 [employer]. Diabetes Care 33(S1), Aug 2009. Performed By: #### H BA1E #### [address] [place] [address] Provider Note - ED v2on 07-23 Provider Note - ED v2 Provider Note - ED v2: Chart Review: ED NOTES ED NOTES: Nontoxic-appearing 24-year-old male presents to urgent care with chief complaint of urinary frequency. Duration of symptoms 2 months. Associated symptoms urinary frequency. Patient denies use of any [id number]-fatqmdv medications or home remedies for symptom management. Patient denies any pain with today's chief complaint. Patient denies any fevers, nausea, vomiting, abdominal pain, chest pain, shortness of breath, visual changes headache, testicular pain, penile discharge, chance of STD or rash. Patient denies past medical history prescription medication use. HISTORY OF PRESENTING ILLNESS EVERARDO is a 24 year old Male and was seen by me at 02-Aug-2019 15:29. The historian is the patient. Triage Information: Most recent Vital Sign Value Date PAST MEDICAL HISTORY ATTESTATION: I have reviewed and confirmed nurse's/medic's notes for patient's medications, allergies, medical history, and surgical history PSYCHOSOCIAL SCREENING: NO: concerns for safety at home, feelings of depression, feels like hurting others and feels like hurting self ALLERGIES/INTOLERAN ANGELITO: Allergy Status Unknown HEALTH HISTORY: No documented data. 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 HENMT: Airway patent, ears with clear tympanic membranes bilaterally. Nasal mucosa clear. Mouth with normal mucosa. Throat has no vesicles, no oropharyngeal exudates and uvula is midline. Face with no lymph node enlargement. EYES: Clear bilaterally, pupils equal, round and reactive to light. CARDIOVASCULAR: Normal rate, regular rhythm. Normal peripheral perfusion RESPIRATORY: Breath sounds clear and equal bilaterally. GASTROINTESTINAL: Abdomen soft, non-distended, no rebound, no guarding. Bowel sounds normal in all 4 quadrants. GENITOURINARY: No discharge, no lesions. MUSCULOSKELETAL: Spine appears normal, range of motion is not limited, no muscle or joint tenderness. NEUROLOGICAL: Alert and oriented, no focal deficits, no motor or sensory deficits. SKIN: Skin normal color for race, warm, dry and intact. No evidence of trauma. PSYCHIATRIC: Alert and oriented to person, place, time/situation. normal mood and affect. No apparent risk to self or others. HEME/LYMPH: Negative cervical adenopathy. RESULTS/VITAL SIGNS VITAL SIGNS: T PRBP SpO2O2(LPM) %FiO2 Method 02-Aug-2019 15:18:[id number]/ 84 98 resp 18 CLINICAL IMPRESSION Diagnosis/Annotatio n: ED Dx Name:Urinary frequency Code:R35.0 Dispostion: discharged Type: home ATTESTATION Comments/Additional Findings: A urinalysis was obtained glucose and ketones are noted. With patient's symptoms labs will be obtained. Patient was instructed that he may possibly have diabetes and needs to establish a primary care doctor for further care. I did stress the importance of this patient verbalizes understanding. Patient will follow up for reevaluation in 3-5 days Patient was instructed to immediately proceed to emergency room for any new, worsening, or symptoms lasting longer than anticipated. The patient's clinical presentation is otherwise unremarkable at this time. Based on exam and clinical finding the patient is stable for discharge. Plan of care was discussed with patient. Patient verbalizes understanding and agrees to plan of care. This note was generated using [employer] software. It may contain errors in wording, punctuation, or spelling. CRITICAL CARE TIME Is this a critically ill patient: no Electronic Signatures: Marin Mar (TEMPLATE FITTER-INDUSTRIAL TECHNICIAN) (Signed 02-Aug-2019 15:52) Authored: Provider Note - ED v2 Last Updated: 02-Aug-2019 15:52 by Marin Mar (TEMPLATE FITTER-INDUSTRIAL TECHNICIAN) [facility] CNCOon 05-25-2017 CNCO Letter Paula Escobar [place] [address]Phone: Wibfazh [address]TO WHOM IT MAY CONCERN:This is to certify that Everardo Escobar has been under my care on 05/25/2017and was unable to attend work from 05/25/2017 through 05/25/2017. Thepatient may return to work on 05/26/2017.Sincerel y yours,Ang Cooperrider, KWASI Normal [facility] 05-25-2017 HOSP Office Visit OPHT (OPHTWE) EVERARDO SINGLETARY ([id number]) 1995 [facility] Tlvjywcqsa12/3/17 8:30 AM ANG KLEIN During your visit today, we recorded the following information about you:Ang Klein, OD 05/25/2017 9:58 AM SignedASSESSMENT/PL AN:1. Foreign body of right cornea, initial encounter - ICD9: 930.0, E914, ICD10:T15.01XAForei gn body removed but underlying rust ring remains. Recommend return toclinic in 1-2 weeks for removal of rust ring which will allow time for body tocondense rust ring material into a smaller area allowing building cleaner removal andless possibility of scar formation. Administered cyclopegia of the right eyeto avoid secondary inflammation.- FOREIGN BODY REMOVAL, CORNEA W/ SLIT LAMPReturn in 2 weeks.Ang Klein, ODThe documentation recorded by the scribe accurately reflects the service Ipersonally performed and the decisions made by me.I have confirmed and edited as necessary the relevant ophthalmic history, ROS,and the neuro exam findings as obtained by others. I have seen and examinedEverardo Escobar. I also have reviewed and agree with the assessment and alba stated above and agree with all of its relevant components.Ang Klein, OD 05/25/2017 9:58 AM SignedASSESSMENT/PL AN:1. Foreign body of right cornea, initial encounter - ICD9: 930.0, E914, ICD10:T15.01XAForei gn body removed but underlying rust ring remains. Recommend return toclinic in 1-2 weeks for removal of rust ring which will allow time for body tocondense rust ring material into a smaller area allowing building cleaner removal andless possibility of scar formation. Administered cyclopegia of the right eyeto avoid secondary inflammation.- FOREIGN BODY REMOVAL, CORNEA W/ SLIT LAMPReturn in 2 weeks.Referring Provider: SELF [[id number]]Allergies As of Date: 05/25/2017(No Known Allergies)Date Reviewed: 05/25/2017Reviewed by: Ang Klein - Fully AssessedReason for Visit: Foreign Body Right Eye [2885]Reason For Visit History RecordedPrimary Visit Diagnosis:Foreign body of right cornea, initial encounter [T15.01XA]Order(s): FOREIGN BODY REMOVAL, CORNEA W/ SLIT LAMP [[id number]] Order #: [id number]: 1 ciprofloxacin HCl (CILOXAN) 0.3 % ophthalmic solutionUse 1 Drop in the right eye four times daily for 7 days.Disp: 1 BottleRfl: 0Prescriptions as of 05/25/2017 Sig: CIPROFLOXACIN 0.3 % EYE DROPS Use 1 Drop in the right eye f*Problem List As Of Date: 05/25/2017(None) Other instructions from your clinician: ASSESSMENT/PLAN: 1. Foreign body of right cornea, initial encounter - ICD9: 930.0, E914, ICD10: T15.01XA Foreign body removed but underlying rust ring remains. Recommend return to clinic in 1-2 weeks for removal of rust ring which will allow time for body to condense rust ring material into a smaller area allowing building cleaner removal and less possibility of scar formation. Administered cyclopegia of the right eye to avoid secondary inflammation. - FOREIGN BODY REMOVAL, CORNEA W/ SLIT LAMP Return in 2 weeks.Prescriptions ordered this encounter Disp Refills Start End CIPROFLOXACIN 0.3 % EYE DROPS 1 Brett* 0 05/25/2017 06/01/2017 Route: RIGHT EYE Sig: Use 1 Drop in the right eye four times daily for 7 days. Status:Closed by ANG KLEIN OD on 05/25/17 Normal [facility] PROGRESSon 05-25-2017 PROGRESS HNO ID: [id number]: Ang KaspererService: (none)Author Type: OPTOMETRISTType: Progress NotesFiled: 05/25/2017 9:58 AMNote Text:ASSESSMENT/TERESA N:1. Foreign body of right cornea, initial encounter - ICD9: 930.0, E914,ICD10: T15.01XAForeign body removed but underlying rust ring remains. Recommend returnto clinic in 1-2 weeks for removal of rust ring which will allow time forbody to condense rust ring material into a smaller area allowing cleanerremoval and less possibility of scar formation. Administered cyclopegiaof the right eye to avoid secondary inflammation.- FOREIGN BODY REMOVAL, CORNEA W/ SLIT LAMPReturn in 2 weeks.Ang Klein ODThe documentation recorded by the scribe accurately reflects the service Ipersonally performed and the decisions made by me.I have confirmed and edited as necessary the relevant ophthalmic history,ROS, and the neuro exam findings as obtained by others. I have seen andexamined Everardo Escobar. I also have reviewed and agree with theassessment and plan as stated above and agree with all of its relevantcomponents. Normal [facility] Vital Signs Date Time Vital Sign Value Performing Clinician Facility 01-02-2025 11:22-0400 Body mass index (BMI) [Ratio] 24.28 kg/m2 Rigo [employer] Work Phone: [facility] 01-02-2025 11:22-0400 Body weight 81.19 kg Rigo William [employer] Work Phone: [facility] 01-02-2025 11:22-0400 Diastolic blood pressure 84 mm[Hg] Rigo [employer] Work Phone: [facility] 01-02-2025 11:22-0400 Heart rate 99 /min Rigo William [employer] Work Phone: [facility] 01-02-2025 11:22-0400 Systolic blood pressure 134 mm[Hg] Rigo [employer] Work Phone: [facility] 11-06-2024 15:00-0400 Body temperature 97.8 [degF] No Primary Care Physician [facility] 11-06-2024 15:00-0400 Diastolic blood pressure 72 mm[Hg] No Primary Care Physician [facility] 11-06-2024 15:00-0400 Heart rate 77 /min No Primary Care Physician [facility] 11-06-2024 15:00-0400 Respiratory rate 18 /min No Primary Care Physician [facility] 11-06-2024 15:00-0400 Systolic blood pressure 118 mm[Hg] No Primary Care Physician [facility] 11-06-2024 14:21-0400 Body height 182.88 cm No Primary Care Physician [facility] 11-06-2024 14:21-0400 Body weight 82.9 kg No Primary Care Physician [facility] 11-06-2024 10:00-0400 SaO2% (BldA) [Mass fraction] 98 % No Primary Care Physician [facility] 11-06-2024 04:19-0400 Body mass index (BMI) [Ratio] 24.7 kg/m2 No Primary Care Physician [facility] 11-04-2024 23:00-0400 Diastolic blood pressure 81 mm[Hg] No Primary Care Physician [facility] 11-04-2024 23:00-0400 Heart rate 117 /min No Primary Care Physician [facility] 11-04-2024 23:00-0400 Respiratory rate 18 /min No Primary Care Physician [facility] 11-04-2024 23:00-0400 SaO2% (BldA) [Mass fraction] 100 % No Primary Care Physician [facility] 11-04-2024 23:00-0400 Systolic blood pressure 127 mm[Hg] No Primary Care Physician [facility] 11-04-2024 22:37-0400 Body temperature 98.3 [degF] No Primary Care Physician [facility] 11-04-2024 21:31-0400 Body mass index (BMI) [Ratio] 23.3 kg/m2 No Primary Care Physician [facility] 11-04-2024 21:31-0400 Body weight 78 kg No Primary Care Physician [facility] 11-04-2024 21:23-0400 Body height 182.88 cm No Primary Care Physician [facility] 07-27-2024 15:30-0500 Body temperature 98.6 [degF] No Primary Care Physician [facility] 07-27-2024 15:30-0500 Diastolic blood pressure 97 mm[Hg] No Primary Care Physician [facility] 07-27-2024 15:30-0500 Heart rate 88 /min No Primary Care Physician [facility] 07-27-2024 15:30-0500 Respiratory rate 16 /min No Primary Care Physician [facility] 07-27-2024 15:30-0500 SaO2% (BldA) [Mass fraction] 100 % No Primary Care Physician [facility] 07-27-2024 15:30-0500 Systolic blood pressure 139 mm[Hg] No Primary Care Physician [facility] 07-27-2024 11:04-0500 Body weight 81.5 kg No Primary Care Physician [facility] 07-27-2024 04:40-0500 Body mass index (BMI) [Ratio] 24.3 kg/m2 No Primary Care Physician [facility] 02-10-2024 15:40-0400 Diastolic blood pressure 101 mm[Hg] Rigo Lowe [employer] Work Phone: [facility] 02-10-2024 15:40-0400 Systolic blood pressure 156 mm[Hg] Rigo Lowe INDUSTRIAL TECHNICIAN Work Phone: [facility] 02-10-2024 15:34-0400 Body mass index (BMI) [Ratio] 26.18 kg/m2 Rigo Lowe INDUSTRIAL TECHNICIAN Work Phone: [facility] 02-10-2024 15:34-0400 Body weight 87.54 kg Rigo Lowe INDUSTRIAL TECHNICIAN Work Phone: [facility] 02-10-2024 15:34-0400 Heart rate 109 /min Rigo Lowe INDUSTRIAL TECHNICIAN Work Phone: [facility] 08-29-2023 11:04-0500 Diastolic blood pressure 67 mm[Hg] Matthew Dawkins MD Work Phone: [facility] 08-29-2023 11:04-0500 Heart rate 94 /min Matthew Dawkins MD Work Phone: [facility] 08-29-2023 11:04-0500 Systolic blood pressure 130 mm[Hg] Matthew Dawkins MD Work Phone: [facility] 08-29-2023 07:00-0500 Respiratory rate 13 /min Matthew Dawkins MD Work Phone: [facility] 08-29-2023 06:18-0500 SaO2% (BldA) [Mass fraction] 96 % Matthew Dawkins MD Work Phone: [facility] 08-28-2023 20:13-0500 Body temperature 99.3 [degF] Matthew Dawkins MD Work Phone: [facility] 08-28-2023 20:10-0500 Body height 182.9 cm Matthew Dawkins MD Work Phone: [facility] 08-28-2023 20:10-0500 Body mass index (BMI) [Ratio] 28.48 kg/m2 Matthew Dawkins MD Work Phone: [facility] 08-28-2023 20:10-0500 Body weight 95.25 kg Matthew Dawkins MD Work Phone: [facility] 12-28-2022 10:41-0400 Body mass index (BMI) [Ratio] 29.16 kg/m2 Sita Rojas MD Work Phone: [facility] 12-28-2022 10:41-0400 Body weight 97.52 kg Sita Rojas MD Work Phone: [facility] 12-28-2022 10:41-0400 Diastolic blood pressure 81 mm[Hg] Sita Rojas MD Work Phone: [facility] 12-28-2022 10:41-0400 Heart rate 58 /min Sita Rojas MD Work Phone: [facility] 12-28-2022 10:41-0400 Systolic blood pressure 120 mm[Hg] Sita Rojas MD Work Phone: [facility] 08-31-2022 09:28-0500 Body height 182.9 cm Sloane Tomlin CNP Work Phone: [facility] 08-31-2022 09:28-0500 Body mass index (BMI) [Ratio] 29.43 kg/m2 Sloane Tomlin CNP Work Phone: [facility] 08-31-2022 09:28-0500 Body weight 98.43 kg Sloane Tomlin CNP Work Phone: [facility] 08-31-2022 09:28-0500 Diastolic blood pressure 77 mm[Hg] Sloane Tomlin CNP Work Phone: [facility] 08-31-2022 09:28-0500 Heart rate 76 /min Sloane Tomlin CNP Work Phone: [facility] 08-31-2022 09:28-0500 Systolic blood pressure 128 mm[Hg] Sloane Tomlin CNP Work Phone: [facility] 05-25-2022 08:51-0400 Body height 182.9 cm Sloane Tomlin CNP Work Phone: [facility] 05-25-2022 08:51-0400 Body mass index (BMI) [Ratio] 29.29 kg/m2 Sloane Tomlin CNP Work Phone: [facility] 05-25-2022 08:51-0400 Body weight 97.98 kg Sloane Tomlin CNP Work Phone: [facility] 05-25-2022 08:51-0400 Diastolic blood pressure 79 mm[Hg] Sloane Tomlin CNP Work Phone: [facility] 05-25-2022 08:51-0400 Heart rate 71 /min Sloane Tomlin CNP Work Phone: [facility] 05-25-2022 08:51-0400 Systolic blood pressure 121 mm[Hg] Sloane Tomlin CNP Work Phone: [facility] 11-03-2021 08:05-0400 Body height 182.9 cm Sloane Tomlin CNP Work Phone: [facility] 11-03-2021 08:05-0400 Body mass index (BMI) [Ratio] 30.11 kg/m2 Sloane Tomlin CNP Work Phone: [facility] 11-03-2021 08:05-0400 Body weight 100.7 kg Sloane Tomlin INDUSTRIAL TECHNICIAN Work Phone: [facility] 11-03-2021 08:05-0400 Diastolic blood pressure 79 mm[Hg] Sloane Tomlin INDUSTRIAL TECHNICIAN Work Phone: [facility] 11-03-2021 08:05-0400 Heart rate 67 /min Sloane Tomlin INDUSTRIAL TECHNICIAN Work Phone: [facility] 11-03-2021 08:05-0400 Systolic blood pressure 122 mm[Hg] Sloane Tomlin INDUSTRIAL TECHNICIAN Work Phone: [facility] 05-21-2021 14:54-0400 Body height 182.9 cm Og Kleinmann PA-C Work Phone: [facility] 05-21-2021 14:54-0400 Body mass index (BMI) [Ratio] 28.89 kg/m2 Go Kleinmann PA-C Work Phone: [facility] 05-21-2021 14:54-0400 Body weight 96.62 kg Og Kleinmann PA-C Work Phone: [facility] 05-21-2021 14:54-0400 Diastolic blood pressure 81 mm[Hg] Og Kleinmann PA-C Work Phone: [facility] 05-21-2021 14:54-0400 Heart rate 94 /min Og Kleinmann PA-C Work Phone: [facility] 05-21-2021 14:54-0400 Systolic blood pressure 137 mm[Hg] Og Kleinmann PA-C Work Phone: [facility] 02-26-2021 14:36-0400 Body temperature 98.2 [degF] Adali Isaacs INDUSTRIAL TECHNICIAN Work Phone: [facility] 02-26-2021 14:36-0400 Diastolic blood pressure 64 mm[Hg] Adali Isaacs INDUSTRIAL TECHNICIAN Work Phone: [facility] 02-26-2021 14:36-0400 Heart rate 67 /min Adali Isaacs INDUSTRIAL TECHNICIAN Work Phone: [facility] 02-26-2021 14:36-0400 SaO2% (BldA) [Mass fraction] 95 % Adali Isaacs CNP Work Phone: [facility] 02-26-2021 14:36-0400 Systolic blood pressure 112 mm[Hg] Adali Isaacs CNP Work Phone: [facility] 02-26-2021 14:32-0400 Body height 182.9 cm Adali Isaacs CNP Work Phone: [facility] 02-26-2021 14:32-0400 Body mass index (BMI) [Ratio] 27.34 kg/m2 Adali Isaacs CNP Work Phone: [facility] 02-26-2021 14:32-0400 Body weight 91.44 kg Adali Isaacs CNP Work Phone: [facility] 02-05-2021 11:07-0400 Diastolic blood pressure 84 mm[Hg] America Vargas MD Work Phone: [facility] 02-05-2021 11:07-0400 Heart rate 86 /min America Vargas MD Work Phone: [facility] 02-05-2021 11:07-0400 Systolic blood pressure 137 mm[Hg] America Vargas MD Work Phone: [facility] 02-05-2021 10:58-0400 Body height 182.9 cm America Vargas MD Work Phone: [facility] 02-05-2021 10:58-0400 Body mass index (BMI) [Ratio] 26.88 kg/m2 America Vargas MD Work Phone: [facility] 02-05-2021 10:58-0400 Body temperature 98.2 [degF] America Vargas MD Work Phone: [facility] 02-05-2021 10:58-0400 Body weight 89.9 kg America Vargas MD Work Phone: [facility] 02-05-2021 10:58-0400 SaO2% (BldA) [Mass fraction] 97 % America Vargas MD Work Phone: [facility] 01-23-2021 22:23-0400 Heart rate 78 /min Tracee Voss MD Work Phone: [facility] 01-23-2021 22:23-0400 Respiratory rate 14 /min Tracee Voss MD Work Phone: [facility] 01-23-2021 22:23-0400 SaO2% (BldA) [Mass fraction] 99 % Tracee Voss MD Work Phone: [facility] 01-23-2021 20:39-0400 Body height 182.9 cm Tracee Voss MD Work Phone: [facility] 01-23-2021 20:39-0400 Body mass index (BMI) [Ratio] 27.12 kg/m2 Tracee Voss MD Work Phone: [facility] 01-23-2021 20:39-0400 Body temperature 98.6 [degF] Tracee Voss MD Work Phone: [facility] 01-23-2021 20:39-0400 Body weight 90.72 kg Tracee Voss MD Work Phone: [facility] 01-23-2021 20:39-0400 Diastolic blood pressure 81 mm[Hg] Tracee Voss MD Work Phone: [facility] 01-23-2021 20:39-0400 Systolic blood pressure 136 mm[Hg] Tracee Voss MD Work Phone: [facility] 01-22-2021 21:59-0400 Diastolic blood pressure 83 mm[Hg] Marin Garland MD Work Phone: [facility] 01-22-2021 21:59-0400 Heart rate 69 /min Marin Garland MD Work Phone: [facility] 01-22-2021 21:59-0400 Respiratory rate 18 /min Marin Garland MD Work Phone: [facility] 01-22-2021 21:59-0400 SaO2% (BldA) [Mass fraction] 99 % Marin Garland MD Work Phone: [facility] 01-22-2021 21:59-0400 Systolic blood pressure 118 mm[Hg] Marin Garland MD Work Phone: [facility] 01-22-2021 20:44-0400 Body temperature 98.2 [degF] Marin Garland MD Work Phone: [facility] 01-22-2021 18:01-0400 Body height 182.9 cm Marin Garland MD Work Phone: [facility] 01-22-2021 18:01-0400 Body mass index (BMI) [Ratio] 27.12 kg/m2 Marin Garland MD Work Phone: [facility] 01-22-2021 18:01-0400 Body weight 90.72 kg Marin Garland MD Work Phone: [facility] Encounters Encounter Date Encounter Type Care Provider Facility Start: 07-03-2025 End: 07-03-2025 Emergency department patient visit [facility] Start: 05-30-2025 ambulatory No Primary Car e Physician [facility] Start: 04-04-2025 End: 04-06-2025 Documentation procedure Camryn Boone CNP Work Phone: [facility] Start: 03-14-2025 ambulatory RIGO WILLIAM [facility] Start: 03-09-2025 End: 03-09-2025 Refill Rigo William CNP Work Phone: [facility] Start: 02-17-2025 ambulatory Ed Physician Provider F acility:[facility] Start: 01-02-2025 End: 01-02-2025 Office outpatient visit 25 minutes Rigo William CNP Work Phone: [facility] Comment on above: 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 Brenda Varela DO [facility] Work Phone: Start: 11-05-2024 Non-patient / Non-visit Dr. Charity chacon MD [facility] Work Phone: Start: 11-04-2024 Non-patient / Non-visit Dr. Brenda Varela DO [facility] Work Phone: Start: 11-04-2024 End: 11-06-2024 Evaluation and management of inpatient Dr. Izaiah Varela DO -Intensive Care Unit Work Phone: Start: 11-04-2024 ambulatory Izaiah Fabian ty:[facility] Start: 07-27-2024 Non-patient / Non-visit Dr. Basil Escobar MD [facility] Work Phone: Start: 07-26-2024 Non-patient / Non-visit Dr. Basil Escobar MD [facility] Work Phone: Start: 07-26-2024 ambulatory Basil Escobar Facility: [facility] Start: 07-26-2024 End: 07-27-2024 Evaluation and management of inpatient Dr. 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) Start: 09-09-2023 Refill Sita Sutherland MD Work Phone: [facility] Start: 08-28-2023 Critical care ill/in jured patient init 30-74 min Irish Florez MD Work Phone: [facility] Start: 08-28-2023 End: 08-29-2023 Evaluation and management of inpatient Irish Florez MD Work Phone: [facility] Start: 08-28-2023 End: 08-29-2023 Emergency department patient visit [facility] Start: 08-05-2023 End: 08-05-2023 ambulatory PHYSICIAN NO [facility] Start: 08-04-2023 End: 08-04-2023 Emergency department patient visit CHRISTIAN TANGLLOH [facility] Start: 12-28-2022 End: 12-28-2022 Office outpatient visit 25 minutes Sita Rojas MD Work Phone: [facility] Comment on above: 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) Start: 08-31-2022 End: 08-31-2022 Office outpatient visit 25 minutes Sloane Tomlin CNP Work Phone: [facility] Comment on above: Type 1 diabetes fahad itus with other specified complication (HCC) (Primary Dx) Start: 05-25-2022 End: 05-25-2022 Office outpatient visit 25 minutes Sloane Tomlin INDUSTRIAL TECHNICIAN Work Phone: [facility] Comment on above: Type 1 diabetes fahad itus with other specified complication (HCC) (Primary Dx) Start: 01-21-2022 Refill Sloane boudreaux INDUSTRIAL TECHNICIAN Work Phone: [facility] Start: 12-29-2021 Refill Sloane boudreaux INDUSTRIAL TECHNICIAN Work Phone: [facility] Start: 11-03-2021 End: 11-03-2021 Office outpatient visit 25 minutes Sloane Tomlin CNP Work Phone: [facility] Comment on above: 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) Start: 05-21-2021 End: 05-21-2021 Office outpatient visit 25 minutes Og Godinez PA-C Work Phone: [facility] Comment on above: Type 1 diabetes fahad itus without complication (HCC) (Primary Dx) Start: 02-27-2021 End: 02-27-2021 ambulatory La Do [facility] Start: 02-26-2021 End: 02-26-2021 Office outpatient new 30 minutes Adali Patty Isaacs INDUSTRIAL TECHNICIAN Work Phone: [facility] Comment on above: Acute deep vein thro mbosis (DVT) of right upper extremity, unspecified vein (HCC) Start: 02-26-2021 End: 02-26-2021 Social Work Ashvin CAMARA [facility] Comment on above: financial assistance Start: 02-05-2021 End: 02-05-2021 Office outpatient new 45 minutes America Vargas MD Work Phone: [facility] Comment on above: Type 1 diabetes fahad itus without complication (HCC) (Primary Dx); Acute deep vein thrombosis (DVT) of right upper extremity, unspecified vein (HCC); Encounter for hepatitis C screening test for low risk patient; Screening for HIV without presence of risk factors Start: 01-23-2021 End: 01-23-2021 Emergency department patient visit Tracee Voss MD Work Phone: [facility] Start: 01-22-2021 End: 01-22-2021 Emergency department patient visit Marin Garland MD Work Phone: [facility] Start: 11-21-2018 End: 11-21-[address] [facility] Start: 05-25-2017 End: 05-26-2017 Ambulatory ANG KLEIN [facility] Procedures Date Procedure Procedure Detail Performing Clinician Start: 07-26-2024 Plain chest X-ray No [place] [facility] Start: 02-10-2024 Hemoglobin glycosylated a1c Rigo William INDUSTRIAL TECHNICIAN Work Phone: Start: 08-29-2023 Glucose measurement Asa Mix MD Work Phone: Start: 08-29-2023 Basic metabolic pane l calcium total Flaco Mix MD Work Phone: Start: 08-29-2023 Glucose measurement Asa asiya Mix MD Work Phone: Start: 08-29-2023 Basic metabolic pane l calcium total Flaco Mix MD Work Phone: Start: 08-29-2023 Glucose measurement Asa asiya Mix MD Work Phone: Start: 08-29-2023 Glucose measurement Asa asiya Mix MD Work Phone: Start: 08-29-2023 Basic metabolic pane l calcium total Flaco Mix MD Work Phone: Start: 08-29-2023 Glucose measurement Asa asiya Mix MD Work Phone: Start: 08-29-2023 End: 08-29-2023 Glucose measurement Flaco devries MD Work Phone: Start: 08-29-2023 Gases blood ph direc t megan xcpt pulse oximitry Irish Florez MD Work Phone: Start: 08-28-2023 Basic metabolic pane l calcium total Irish Florez MD Work Phone: Start: 08-28-2023 Blood ethanol measurement Irish Floerz MD Work Phone: Start: 08-28-2023 C-reactive protein Crescencioal andrea Mix MD Work Phone: Start: 08-28-2023 OBTAIN VENOUS BLOOD GASES AND PERFORM Irish Florez MD Work Phone: Start: 08-28-2023 End: 08-29-2023 Glucose measurement Flaco devries MD Work Phone: Start: 08-28-2023 Glucose measurement Asa Mix MD Work Phone: Start: 08-28-2023 Urnls dip stick/tabl et reagent auto microscopy Irish Florez MD Work Phone: Start: 08-28-2023 Radiologic exam ches t single view Irish Florez MD Work Phone: Start: 08-28-2023 Comprehensive metabo lic panel Irish Florez MD Work Phone: Start: 08-28-2023 Influenza virus A an d B RNA and SARS-CoV-2 (COVID-19) N gene panel - Respiratory specimen by VICKI with probe detection Irish Florez MD Work Phone: Start: 08-28-2023 LAVENDER TOP Irish mcdonald MD Work Phone: Start: 08-28-2023 MINT GREEN TOP Irish Florez MD Work Phone: Start: 08-28-2023 RAINBOW DRAW Irish mcdonald MD Work Phone: Start: 12-28-2022 3 comp foot exam completed Sita Rojas MD Work Phone: Start: 08-31-2022 3 comp foot exam completed Sloane Tomlin CNP Work Phone: Start: 08-29-2022 Microalbumin [Mass/v olume] in Urine by Test strip Sloane Tomlin CNP Work Phone: Start: 05-25-2022 3 comp foot exam completed Sloane Tomlin CNP Work Phone: Start: 03-22-2022 Adult depression scr eening assessment Sloane Tomlin CNP Work Phone: Start: 02-28-2022 Microalbumin [Mass/v olume] in Urine by Test strip Sloane Tomlin CNP Work Phone: Start: 11-03-2021 Hemoglobin glycosylated a1c Sloane Tomlin CNP Work Phone: Start: 11-03-2021 3 comp foot exam completed Sloane Tomlin CNP Work Phone: Start: 08-02-2021 Microalbumin [Mass/v olume] in Urine by Test strip Sloane Tomlin CNP Work Phone: Start: 05-21-2021 3 comp foot exam completed Og Godinez PA-C Work Phone: Start: 02-19-2021 Microalbumin [Mass/v olume] in Urine by Test strip Ashvin Sanchez RIGGING SLINGER Start: 02-05-2021 Adult depression scr eening assessment America Vargas MD Work Phone: Start: 01-22-2021 Ct upper extremity w/contrast material Peter Chackowendy Carmichael PA-C Work Phone: Start: 01-22-2021 Basic metabolic pane l calcium total Peter Reno Amol PA-C Work Phone: Start: 12-14-2019 Follow-up visit Start: 10-25-2019 Follow-up visit Start: 09-27-2019 Follow-up visit Start: 09-12-2019 Follow-up visit Plan of Treatment Date Care Activity Detail Author Start: 01-02-2026 Diabetic foot examination Diabetic Foot Exam [facility] Start: 07-01-2025 eGFR Diabetes eGFR Diabetes [facility] Start: 07-01-2025 Urine screening for protein [facility] Start: 05-10-2025 End: 05-10-2025 Patient encounter procedure 05/10/2025 11:30 AM EDT Office Visit [facility] [address] [facility] [place] [address] Rigo William, INDUSTRIAL TECHNICIAN [address] [place] [address] [facility] Start: 05-04-2025 End: 05-04-2025 Patient encounter procedure 05/04/2025 8:00 AM EDT Office Visit [facility] [address] [address] Camryn Boone, INDUSTRIAL TECHNICIAN [address] [facility] [place] [address] [facility] Start: 04-23-2025 Influenza vaccination [facility] Start: 03-31-2025 Hemoglobin A1c measurement A1C [facility] Start: 02-09-2025 Diabetic foot examination Diabetic Foot Exam [facility] Start: 11-12-2024 Complete blood count [facility] Start: 11-11-2024 Complete blood count [facility] Start: 11-10-2024 Complete blood count [facility] Start: 11-09-2024 Complete blood count [facility] Start: 11-08-2024 Complete blood count [facility] Start: 11-07-2024 Complete blood count [facility] Start: 11-06-2024 Patient discharge [facility] Start: 11-06-2024 [facility] Start: 11-06-2024 Care planning and problem solving actions [facility] Start: 11-06-2024 Lab findings surveillance [facility] Start: 11-06-2024 Notification of physician [facility] Start: 11-06-2024 Patient education [facility] Start: 11-06-2024 Vital signs measurements [facility] Start: 11-05-2024 Care planning and problem solving actions [facility] Start: 11-05-2024 End: 11-05-2024 [facility] Start: 11-05-2024 Care regimes management [facility] Start: 11-05-2024 Notification of physician [facility] Start: 11-05-2024 [facility] Start: 11-05-2024 Following clinical pathway protocol [facility] Start: 11-04-2024 Application of intermittent pneumatic compression device [facility] Start: 11-04-2024 Assessment of risk of venous thromboembolism [facility] Start: 11-04-2024 Bedrest [facility] Start: 11-04-2024 Elevation of head of bed [facility] Start: 11-04-2024 Insertion of catheter into peripheral vein [facility] Start: 11-04-2024 Lab findings surveillance [facility] Start: 11-04-2024 Measuring intake and output [facility] Start: 11-04-2024 Notification of physician [facility] Start: 11-04-2024 End: 11-05-2024 Patient referral to dietitian [facility] Start: 11-04-2024 Providing care according to standard [facility] Start: 11-04-2024 Referral to service [facility] Start: 11-04-2024 Tobacco use cessation education [facility] Start: 11-04-2024 Vital signs measurements [facility] Start: 11-04-2024 [facility] Start: 11-04-2024 Clostridioides difficile DNA [Presence] in Unspecified specimen by VICKI with probe detection [facility] Start: 11-04-2024 Lactoferrin [Presence] in Stool by Immunoassay [facility] Start: 11-04-2024 Nucleic acid assay [facility] Start: 11-04-2024 Admission procedure [facility] Start: 11-04-2024 Verification routine [facility] Start: 11-04-2024 Hospital admission, emergency, from emergency room, medical nature [facility] Start: 11-04-2024 [facility] Start: 07-27-2024 Patient discharge [facility] Start: 07-26-2024 Care regimes management [facility] Start: 07-26-2024 Notification of physician [facility] Start: 07-26-2024 [facility] Start: 07-26-2024 Following clinical pathway protocol [facility] Start: 07-26-2024 Assessment of risk of venous thromboembolism [facility] Start: 07-26-2024 Continuous pulse oximetry [facility] Start: 07-26-2024 Following clinical pathway protocol [facility] Start: 07-26-2024 Insertion of catheter into peripheral vein [facility] Start: 07-26-2024 Lab findings surveillance [facility] Start: 07-26-2024 Measuring intake and output [facility] Start: 07-26-2024 Notification of physician [facility] Start: 07-26-2024 Patient education [facility] Start: 07-26-2024 Patient referral to dietitian [facility] Start: 07-26-2024 Providing care according to standard [facility] Start: 07-26-2024 Vital signs measurements [facility] Start: 07-26-2024 End: 07-26-2024 [facility] Start: 07-26-2024 Admission procedure [facility] Start: 07-26-2024 Patient referral to dietitian [facility] Start: 06-11-2024 End: 02-09-2025 Comprehensive metabolic 2000 panel - Serum or Plasma Comprehensive Metabolic Panel Lab Routine 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) Expected: 06/11/2024 (Approximate), Expires: 02/09/2025 [facility] Work Phone: Comment on above: Expected: 06/11/2024 (Approximate), Expi res: 02/09/2025 Start: 06-11-2024 End: 02-09-2025 Hemoglobin A1c/Hemoglobin.total in Blood Hemoglobin A1c Lab Routine 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) Expected: 06/11/2024 (Approximate), Expires: 02/09/2025 [facility] Comment on above: Expected: 06/11/2024 (Approximate), Expi res: 02/09/2025 Start: 06-11-2024 End: 02-09-2025 Lipid 1996 panel - Serum or Plasma Lipid Panel Lab Routine 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) Expected: 06/11/2024 (Approximate), Expires: 02/09/2025 [facility] Comment on above: Expected: 06/11/2024 (Approximate), Expi res: 02/09/2025 Start: 06-11-2024 End: 02-09-2025 Microalbumin measurement, urine, quantitative Microalbumin/Creatinine Ratio, UR Random Lab Routine 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) Expected: 06/11/2024 (Approximate), Expires: 02/09/2025 [facility] Comment on above: Expected: 06/11/2024 (Approximate), Expi res: 02/09/2025 Start: 06-11-2024 End: 02-09-2025 Thyrotropin [Units/volume] in Serum or Plasma TSH Lab Routine 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) Expected: 06/11/2024 (Approximate), Expires: 02/09/2025 [facility] Comment on above: Expected: 06/11/2024 (Approximate), Expi res: 02/09/2025 Start: 06-11-2024 End: 02-09-2025 Thyroxine (T4) free [Mass/volume] in Serum or Plasma T4, Free Lab Routine 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) Expected: 06/11/2024 (Approximate), Expires: 02/09/2025 [facility] Comment on above: Expected: 06/11/2024 (Approximate), Expi res: 02/09/2025 Start: 05-19-2024 End: 05-19-2024 Patient encounter procedure 05/19/2024 1:00 PM EDT Office Visit [facility] [address] [facility] [place] [phone] Rigo William, INDUSTRIAL TECHNICIAN [address] [place] [address] [facility] Start: 05-12-2024 Hemoglobin A1c measurement A1C [facility] Start: 04-23-2024 COVID-19 Vaccine ( season) COVID-19 Vaccine ( season) [facility] Start: 04-23-2024 Influenza vaccination Influenza Vaccine (Season Ended) [facility] Start: 02-10-2024 End: 02-10-2024 Patient encounter procedure 02/10/2024 3:30 PM EDT Office Visit [facility] [address] [facility] [place] [id number] Rigo William, INDUSTRIAL TECHNICIAN [address] [place] [address] [facility] Start: 12-29-2023 Diabetic foot examination [facility] Start: 11-27-2023 Hemoglobin A1c measurement A1C [facility] Start: 08-31-2023 Diabetic foot examination Foot Exam [facility] Start: 08-29-2023 Urine screening for protein Urine Microalbumin [facility] Start: 08-23-2023 Glaucoma screening Ophthalmology Exam [facility] Comment on above: Postponed from 2005 (Not Indicated ) Start: 08-23-2023 Ophthalmic examination and evaluation Ophthalmology Exam [facility] Comment on above: Postponed from 2005 (Not Indicated ) Start: 06-20-2023 Hemoglobin A1c measurement A1C [facility] Start: 05-25-2023 Diabetic foot examination Foot Exam [facility] Start: 04-23-2023 COVID-19 Vaccine ( season) COVID-19 Vaccine () [facility] Start: 04-23-2023 Influenza vaccination [facility] Start: 04-19-2023 End: 04-19-2023 Patient encounter procedure 04/19/2023 8:15 AM EDT Office Visit [facility] [address] [facility] [place] [address] Sloane Tomlin, INDUSTRIAL TECHNICIAN [address] [place] [address] [facility] Start: 03-22-2023 Depression screening using PHQ-9 (Patient Health Questionnaire 9) score [facility] Start: 03-01-2023 End: 12-29-2023 Comprehensive metabolic 2000 panel - Serum or Plasma Comprehensive Metabolic Panel Lab Routine 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) Expected: 03/01/2023 (Approximate), Expires: 12/29/2023 [facility] Comment on above: Expected: 03/01/2023 (Approximate), Expi res: 12/29/2023 Start: 03-01-2023 End: 12-29-2023 Hemoglobin A1c/Hemoglobin.total in Blood Hemoglobin A1c Lab Routine 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) Expected: 03/01/2023 (Approximate), Expires: 12/29/2023 [facility] Work Phone: Comment on above: Expected: 03/01/2023 (Approximate), Expi res: 12/29/2023 Start: 03-01-2023 End: 12-29-2023 Lipid 1996 panel - Serum or Plasma Lipid Panel Lab Routine 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) Expected: 03/01/2023 (Approximate), Expires: 12/29/2023 [facility] Comment on above: Expected: 03/01/2023 (Approximate), Expi res: 12/29/2023 Start: 03-01-2023 End: 12-29-2023 Microalbumin measurement, urine, quantitative Microalbumin/Creatinine Ratio, UR Random Lab Routine 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) Expected: 03/01/2023 (Approximate), Expires: 12/29/2023 [facility] Comment on above: Expected: 03/01/2023 (Approximate), Expi res: 12/29/2023 Start: 02-28-2023 Urine screening for protein Urine Microalbumin [facility] Start: 12-29-2022 End: 08-31-2023 Comprehensive metabolic 2000 panel - Serum or Plasma Comprehensive Metabolic Panel Lab Routine Type 1 diabetes mellitus with other specified complication (HCC) Expected: 12/29/2022, Expires: 08/31/2023 [facility] Work Phone: Comment on above: Expected: 12/29/2022, Expires: Start: 12-29-2022 End: 08-31-2023 Hemoglobin A1c/Hemoglobin.total in Blood Hemoglobin A1c Lab Routine Type 1 diabetes mellitus with other specified complication (HCC) Expected: 12/29/2022, Expires: 08/31/2023 [facility] Comment on above: Expected: 12/29/2022, Expires: Start: 12-29-2022 End: 08-31-2023 Thyrotropin [Units/volume] in Serum or Plasma TSH Lab Routine Type 1 diabetes mellitus with other specified complication (HCC) Expected: 12/29/2022, Expires: 08/31/2023 [facility] Comment on above: Expected: 12/29/2022, Expires: Start: 12-29-2022 End: 08-31-2023 Thyroxine (T4) free [Mass/volume] in Serum or Plasma T4, Free Lab Routine Type 1 diabetes mellitus with other specified complication (HCC) Expected: 12/29/2022, Expires: 08/31/2023 [facility] Comment on above: Expected: 12/29/2022, Expires: 4 Start: 12-28-2022 End: 12-28-2022 Patient encounter procedure 12/28/2022 Office Visit Endocrinology Sita Rojas MD [address] [place] [address] [facility] Start: 11-27-2022 Hemoglobin A1c measurement A1C [facility] Start: 11-03-2022 Diabetic foot examination Foot Exam [facility] Start: 08-31-2022 End: 08-31-2022 Patient encounter procedure 08/31/2022 Office Visit Endocrinology Sloane Tomlin, PAR[place] [address] [place] [address] [facility] Start: 08-25-2022 End: 05-25-2023 Comprehensive metabolic 2000 panel - Serum or Plasma Comprehensive Metabolic Panel Lab Routine Type 1 diabetes mellitus with other specified complication (HCC) Expected: 08/25/2022, Expires: 05/25/2023 [facility] Work Phone: Comment on above: Expected: 08/25/2022, Expires: Start: 08-25-2022 Hemoglobin A1c measurement A1C [facility] Start: 08-25-2022 End: 05-25-2023 Hemoglobin A1c/Hemoglobin.total in Blood Hemoglobin A1c Lab Routine Type 1 diabetes mellitus with other specified complication (HCC) Expected: 08/25/2022, Expires: 05/25/2023 [facility] Comment on above: Expected: 08/25/2022, Expires: Start: 08-25-2022 End: 05-25-2023 Lipid 1996 panel - Serum or Plasma Lipid Panel Lab Routine Type 1 diabetes mellitus with other specified complication (HCC) Expected: 08/25/2022, Expires: 05/25/2023 [facility] Comment on above: Expected: 08/25/2022, Expires: Start: 08-25-2022 End: 05-25-2023 Microalbumin measurement, urine, quantitative Microalbumin/Creatinine Ratio, UR Random Lab Routine Type 1 diabetes mellitus with other specified complication (HCC) Expected: 08/25/2022, Expires: 05/25/2023 [facility] Comment on above: Expected: 08/25/2022, Expires: Start: 08-25-2022 End: 05-25-2023 Thyrotropin [Units/volume] in Serum or Plasma TSH Lab Routine Type 1 diabetes mellitus with other specified complication (HCC) Expected: 08/25/2022, Expires: 05/25/2023 [facility] Comment on above: Expected: 08/25/2022, Expires: 3 Start: 08-25-2022 End: 05-25-2023 Thyroxine (T4) free [Mass/volume] in Serum or Plasma T4, Free Lab Routine Type 1 diabetes mellitus with other specified complication (HCC) Expected: 08/25/2022, Expires: 05/25/2023 [facility] Comment on above: Expected: 08/25/2022, Expires: Start: 08-02-2022 Microalbumin measurement, urine, quantitative Urine Microalbumin [facility] Start: 05-21-2022 Diabetic foot examination Foot Exam [facility] Start: 04-23-2022 Influenza vaccination [facility] Start: 03-02-2022 End: 03-02-2022 Patient encounter procedure 03/02/2022 Office Visit Endocrinology Sloane Tomlin, INDUSTRIAL TECHNICIAN [address] [place] [address] [facility] Start: 02-19-2022 COVID-19 Vaccine (#1) COVID-19 Vaccine (#1) [facility] Comment on above: Postponed from 2000 (Patient Refus ed) Start: 02-19-2022 COVID-19 Vaccine (1) COVID-19 Vaccine (1) [facility] Comment on above: Postponed from 2007 (Patient Refus ed) Postponed from 06/10 (Patient Refused) Start: 02-19-2022 Microalbumin measurement, urine, quantitative Urine Microalbumin [facility] Start: 02-05-2022 Depression screening using PHQ-9 (Patient Health Questionnaire 9) score [facility] Start: 02-03-2022 End: 11-03-2022 Comprehensive metabolic 2000 panel - Serum or Plasma Comprehensive Metabolic Panel Lab Routine 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) Expected: 02/03/2022, Expires: 11/03/2022 [facility] Work Phone: Comment on above: Expected: 02/03/2022, Expires: 3 Start: 02-03-2022 Hemoglobin A1c measurement A1C [facility] Start: 02-03-2022 End: 11-03-2022 Hemoglobin A1c/Hemoglobin.total in Blood Hemoglobin A1c Lab Routine 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) Expected: 02/03/2022, Expires: 11/03/2022 [facility] Comment on above: Expected: 02/03/2022, Expires: 3 Start: 02-03-2022 End: 11-03-2022 Lipid 1996 panel - Serum or Plasma Lipid Panel Lab Routine 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) Expected: 02/03/2022, Expires: 11/03/2022 [facility] Comment on above: Expected: 02/03/2022, Expires: 3 Start: 02-03-2022 End: 11-03-2022 Microalbumin measurement, urine, quantitative Microalbumin/Creatinine Ratio, UR Random Lab Routine 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) Expected: 02/03/2022, Expires: 11/03/2022 [facility] Comment on above: Expected: 02/03/2022, Expires: 3 Start: 02-03-2022 End: 11-03-2022 Thyrotropin [Units/volume] in Serum or Plasma TSH Lab Routine 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) Expected: 02/03/2022, Expires: 11/03/2022 [facility] Comment on above: Expected: 02/03/2022, Expires: 3 Start: 02-03-2022 End: 11-03-2022 Thyroxine (T4) free [Mass/volume] in Serum or Plasma T4, Free Lab Routine 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) Expected: 02/03/2022, Expires: 11/03/2022 [facility] Comment on above: Expected: 02/03/2022, Expires: 3 Start: 02-02-2022 End: 02-02-2022 Patient encounter procedure 02/02/2022 Office Visit Endocrinology Sloane Tomlin, INDUSTRIAL TECHNICIAN [address] [place] [address] [facility] Start: 10-22-2021 Hemoglobin A1c measurement A1C [facility] Start: 08-21-2021 Hemoglobin A1c measurement A1C [facility] Start: 07-04-2021 End: 07-04-2021 Patient encounter procedure 07/04/2021 Office Visit Endocrinology Og Godinez PA-C [address] [place] [address] [facility] Start: 06-05-2021 End: 06-05-2021 Patient encounter procedure 06/05/2021 Office Visit Primary Care America Granados MD [address] [place] [address] [facility] Start: 05-07-2021 End: 05-07-2021 Patient encounter procedure 05/07/2021 Office Visit Oncology Adali Isaacs, INDUSTRIAL TECHNICIAN [address] [place] [address] [phone] [facility] Start: 04-23-2021 Influenza vaccination [facility] Start: 03-10-2021 End: 03-10-2021 Patient encounter procedure 03/10/2021 Office Visit Primary Care America Granados MD [address] [place] [address] [phone] [facility] Phys[facility] Start: 02-19-2021 End: 02-19-2021 Patient encounter procedure 02/19/2021 Office Visit Primary Care America Granados MD [address] [place] [address] [phone] [facility] Start: 02-05-2021 End: 02-05-2021 Patient encounter procedure 02/05/2021 Office Visit Primary Care America Granados MD [address] [place] [address] [phone] [facility] Start: 01-23-2021 End: 03-24-2022 Ultrasound duplex venous arm right Ultrasound duplex venous arm right Vascular Ultrasound Routine Expected: 01/23/2021, Expires: 03/24/2022 [facility] Comment on above: Expected: 01/23/2021, Expires: Start: 2014 Pneumococcal Vaccine: Ped or At-Risk (1 of 2 - PCV) Pneumococcal Vaccine: Ped or At-Risk (1 of 2 - PCV) [facility] Start: 2013 Hepatitis C screening Hepatitis C Screening [facility] Start: 2010 HIV screening HIV Screening [facility] Start: 2007 COVID-19 Vaccine (1) COVID-19 Vaccine (1) [facility] Start: 2007 Depression screening using PHQ-9 (Patient Health Questionnaire 9) score Depression Screening (PHQ9) [facility] Start: 2006 Vaccination for human papillomavirus HPV Vaccines (1 - Male 2-dose series) [facility] Start: 2005 Diabetic foot examination Foot Exam [facility] Start: 2005 Glaucoma screening Diabetic Eye Exam [facility] Start: 2005 Microalbumin measurement, urine, quantitative Urine Microalbumin [facility] Start: 2005 Ophthalmic examination and evaluation Ophthalmology Exam [facility] Start: 2001 Pneumococcal Vaccine: Ped or At-Risk (1 - PCV) Pneumococcal Vaccine: Ped or At-Risk (1 - PCV) [facility] Start: 2001 Pneumococcal Vaccine: Ped or At-Risk (1 of 2 - PCV) Pneumococcal Vaccine: Ped or At-Risk (1 of 2 - PCV) [facility] Start: 2001 Pneumococcal Vaccine: Ped or At-Risk (1 of 2 - PPSV23) Pneumococcal Vaccine: Ped or At-Risk (1 of 2 - PPSV23) [facility] Start: 1998 History and physical examination, annual for health maintenance Wellness Visit [facility] Start: 1995 COVID-19 Vaccine (#1) COVID-19 Vaccine (#1) [facility] Start: 1995 Hemoglobin A1c measurement A1C [facility] Start: 1995 Tetanus vaccination Tetanus: Every 10yrs [facility] End: 04-05-2026 Comprehensive metabolic 2000 panel - Serum or Plasma Comprehensive Metabolic Panel Lab Routine 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) 1 Occurrences starting 04/04/2025 until 04/05/2026 [facility] Work Phone: Comment on above: 1 Occurrences starting 04/04/2025 until 04/05/2026 Folate [Moles/volume ] in Serum or Plasma [facility] End: 02-05-2022 Hemoglobin A1c/Hemoglobin.total in Blood Hemoglobin A1c Lab Routine Type 1 diabetes mellitus without complication (HCC) 1 Occurrences starting 02/05/2021 until 02/05/2022 [facility] Comment on above: 1 Occurrences starting 02/05/2021 until 02/05/2022 End: 04-05-2026 Hemoglobin A1c/Hemoglobin.total in Blood Hemoglobin A1c Lab Routine 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) 1 Occurrences starting 04/04/2025 until 04/05/2026 [facility] Comment on above: 1 Occurrences starting 04/04/2025 until 04/05/2026 End: 02-05-2022 Hepatitis C antibody measurement Hepatitis C Antibody Lab Routine Encounter for hepatitis C screening test for low risk patient 1 Occurrences starting 02/05/2021 until 02/05/2022 [facility] Comment on above: 1 Occurrences starting 02/05/2021 until 02/05/2022 End: 02-05-2022 Human immunodeficiency virus antibody test HIV 1/2 Screen (4th Generation) Lab Routine Screening for HIV without presence of risk factors 1 Occurrences starting 02/05/2021 until 02/05/2022 [facility] Comment on above: 1 Occurrences starting 02/05/2021 until 02/05/2022 End: 02-05-2022 Lipid 1996 panel - Serum or Plasma Lipid Panel Lab Routine Type 1 diabetes mellitus without complication (HCC) 1 Occurrences starting 02/05/2021 until 02/05/2022 [facility] Comment on above: 1 Occurrences starting 02/05/2021 until 02/05/2022 Magnesium measurement [facility] Microalbumin measurement, urine, quantitative Microalbumin/Creatinine Ratio, UR Random Lab Routine Type 1 diabetes mellitus without complication (HCC) Ordered: 02/05/2021 [facility] Comment on above: Ordered: 02/05/2021 Ova OR parasites identification [facility] Patient referral [facility] Work Phone: End: 04-05-2026 Thyrotropin [Units/volume] in Serum or Plasma TSH Lab Routine 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) 1 Occurrences starting 04/04/2025 until 04/05/2026 [facility] Comment on above: 1 Occurrences starting 04/04/2025 until 04/05/2026 End: 04-05-2026 Thyroxine (T4) free [Mass/volume] in Serum or Plasma T4, Free Lab Routine 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) 1 Occurrences starting 04/04/2025 until 04/05/2026 [facility] Comment on above: 1 Occurrences starting 04/04/2025 until 04/05/2026 Payers Date Payer Category Payer Medicaid (Managed Care) [employer] [id number] 2024 Self-pay 2024 Unknown [id number] 2021 Unknown [employer]TI[employer] SHAH/PREF/HMO/PPO [id number] 2021-Present [phone] [address] [place] [address] [id number] 2021 Unknown [id number] 2021 Unknown [id number] 1995 Unknown [id number] [id number]. 903 1995 Unknown [id number] [id number]. 903 1995 Unknown [id number] 2.16.840.1.075736.3.579.2. 903 1995 Unknown [id number] 2.16.840.1.544184.3.579.2. 903 1995 Unknown [id number] 2.16.840.1.840449.3.579.2. 903 1995 Unknown [id number] 2.16.840.1.153198.3.579.2. 903 Unknown [id number] 2.16.840.1.260733.3.579.2. 462 Unknown [id number] 2.16.840.1.100689.3.579.2. 462 Unknown [id number] 2.16.840.1.325830.3.579.2. 462 Unknown [id number] 2.16.840.1.344379.3.579.2. 462 Unknown [id number] 2.16.840.1.596422.3.579.2. 462 Unknown [id number] 2.16.840.1.823593.3.579.2. 462 Unknown [id number] 2.16.840.1.970552.3.579.2. 462 Unknown [id number] 2.16.840.1.310001.3.579.2. 462 Unknown [id number]. 462 Social History Date Type Detail Facility Start: 01-22-2021 End: 02-27-2021 Tobacco smoking status NHIS Current some day smoker [facility] Start: 01-22-2021 End: 01-02-2025 Alcohol intake Ex-drinker (finding) [facility] Start: 1995 Sex Assigned At Not on file [facility] Start: 10-24-2021 End: 12-28-2022 Exposure to SARS-CoV-2 (event) Not sure [facility] History of tobacco use Cigarette Smoker [facility] Start: 01-22-2021 End: 02-05-2021 Tobacco use and exposure Current user [facility] History of tobacco use Chews Tobacco [facility] Start: 02-05-2021 End: 02-27-2021 Alcohol intake Current drinker of alcohol (finding) [facility] Start: 02-05-2021 Alcohol Comment Social [facility] Start: 02-26-2021 End: 04-30-2024 Cigarettes smoked current (pack per day) - Reported [facility] Start: 11-03-2021 End: 01-02-2025 Tobacco smoking status NHIS Ex-smoker [facility] Start: 11-03-2021 End: 01-02-2025 Tobacco use and exposure Former smokeless tobacco user [facility] History of tobacco use Current smoker [facility] Start: 01-03-2023 End: 04-30-2024 Tobacco use panel [facility] Adult Depression Screening Assessment 0 [facility] Start: 01-22-2021 Gender identity Identifies as male gender (finding) [facility] Start: 05-21-2021 Sexual orientation Heterosexual (finding) [facility] Start: 11-04-2024 Tobacco smoking status NHIS Smokes tobacco daily (finding) [facility] Start: 11-04-2024 End: 11-06-2024 Sex Male (finding) [facility] Start: 1995 Sex Assigned At Male [facility] Start: 11-04-2024 Tobacco smoking status NHIS Current Heavy tobacco smoker [facility] Has the [employer], oil, or water company threatened to shut off services in your home in past 12Mo No [facility] (I/We) worried wheth er (my/our) food would run out before (I/we) got money to buy more. Never true [facility] Medical Equipment Procedure Code Equipment Code Equipment Origin al Text Equipment Identifier Dates Pen Needle, Diab etic 31 gauge x 1/3" needle Start: 11-06-2024 1 (one) strip by Miscellaneous route as needed . [id number] Start: 01-02-2025 Goals Date Patient Goal Desired Activity /State Functional Status Date Assessment Result Facility 11-06-2024 Functional status Up ad andrea [facility] Work Phone: 07-27-2024 Functional status Ambulates [facility] Work Phone: Mental Status Date Assessment Result Facility 11-05-2024 Cognitive function Voice/Name;To uch/Shaking;Light Pain;Deep Pain [facility] Work Phone: 11-04-2024 Cognitive function Level Of Cons ciousness Awake;Alert;Appropriate;Follow s Commands [facility] Work Phone: 07-27-2024 Cognitive function Voice/Name [facility] Work Phone: Clinical Notes 01-22-2021 to 04-06-2025 Camryn Boone CNP - 04/06/2025 10:52 AM EDTTelephone Encounter - Cyndi Lowe RN - 03/09/2025 1:34 PM EDTTelephone Encounter - Cyndi Lowe RN - 03/09/2025 1:34 PM EDTPatient Instructions Note Date & Type Note Facility 04-06-2025 Note Rx sent, appointment scheduled. Labs ordered. AUTHENTICATED BY CAMRYN BOONE ON 04/06/2025 10:53:45 [facility] 04-06-2025 History of Presen t illness Narrative Rx sent, appointment scheduled. Labs ordered. documented in this encounter [facility] 03-09-2025 Telephone encounter Note Insurance prefers Humalog [facility] 03-09-2025 Miscellaneous Notes Insurance prefers Humalog documented in this encounter [facility] 01-02-2025 Instructions Rigo William CNP - 01/02/2025 11:46 AM EDT Humalog insulin: 15 units at breakfast; 15 units at lunch; 15 units at supper Sliding scale: Use as directed with Humalog insulin before meals and at bedtime. 151-200: 2 units fast acting insulin 201-250: 4 units fast acting insulin 251-300: 6 units fast acting insulin 301-350: 8 units fast acting insulin 351-400: 10 units fast acting insulin above 400: 12 units fast acting insulin Lantus insulin: 25 units at dinner Call the office with Blood sugar readings in 1 week for dose adjustments to your insulin, if needed. The goal hemoglobin A1C is 7%-8%, closer to 7%, which is an average BG of 150 Please call the office sooner for episodes of hypoglycemia, BG < 70. Please remember to check your blood sugar 4x per day. Bring your blood sugar meter with you to appointments for review/download. It is important for us to prove you are checking your blood sugar, in order for us to renew/prescribe testing supplies. *Get updated labs done prior to your follow up appointment with us. If you do not get updated labs done, that are requested, please consider rescheduling your appointment until those are done * If you do not have labs or blood sugar readings for review at your visit please consider rescheduling your appointment as it is difficult for us to make changes to your diabetes regimen without sufficient information. documented in this encounter [facility] 01-02-2025 History of Presen t illness Narrative Images from the original note were not included. Patient ID: Everardo Escobar is a 29 y.o. male 1995 Subjective: Everardo Escobar presents for follow up of Type 1 diabetes Patient was diagnosed with T1DM in 07/2019. He presents today for follow-up of his type 1 diabetes. His most recent hemoglobin A1c is 11.8%. He did have labs completed prior to his appointment today which are reviewed below. He is currently self-monitoring blood glucose readings 4 times daily. Unfortunately he did not bring any readings in for review today. He does share that he has relocated and is now living in [place]. He is asking for a referral be placed to endocrinology in [place] closer to where he is now residing. Currently taking: Humalog insulin: 10 units at breakfast; 10 units at lunch; 10 units at supper Lantus insulin: 25 units at bedtime Sliding scale: Use as directed with Humalog insulin before meals and at bedtime. 151-200: 2 units fast acting insulin 201-250: 4 units fast acting insulin 251-300: 6 units fast acting insulin 301-350: 8 units fast acting insulin 351-400: 10 units fast acting insulin above 400: 12 units fast acting insulin Current Outpatient Medications Medication Sig Dispense Refill acetone, urine, test (Ketone Urine Test) Strp 1 (one) strip by Miscellaneous route as needed . 30 each 3 blood-glucose sensor (NsGene G7 Sensor) Fauzia Use as directed to check blood glucose 4 times daily. DX . Change sensor every 10 days. . 3 each 11 insulin aspart U-100 (NovoLOG Flexpen U-100 Insulin) 100 unit/mL (3 mL) InPn Use as directed Three times a day plus sliding scale, approx 60 units total per day. Use insulin: CHO ratio of 1:10 for meals and snacks . 30 mL 6 insulin glargine (Lantus Solostar U-100 Insulin) 100 unit/mL (3 mL) InPn Inject 25 (twenty five) Units under the skin nightly . 15 mL 11 No current facility-administered medications for this visit. Review of Systems: Review of Systems Constitutional: Negative for activity change, appetite change, fatigue and unexpected weight change. Eyes: Negative for visual disturbance. Respiratory: Negative for chest tightness and shortness of breath. Cardiovascular: Negative for chest pain, palpitations and leg swelling. Gastrointestinal: Negative for abdominal pain, constipation, diarrhea, nausea and vomiting. Endocrine: Negative for polydipsia, polyphagia and polyuria. Genitourinary: Negative for difficulty urinating and frequency. Musculoskeletal: Negative for arthralgias and myalgias. Skin: Negative for rash and wound. Neurological: Negative for dizziness, weakness and numbness. Psychiatric/Behavioral: Negative for sleep disturbance. The patient is not nervous/anxious. The following portions of the patient's history were reviewed and updated as appropriate: allergies, current medications, past family history, past medical history, past social history, past surgical history and problem list. Objective: BP (P) 134/84 (Patient Position: Sitting) Pulse 99 Wt 81.2 kg (179 lb) BMI 24.28 kg/m Wt Readings from Last 3 Encounters: 01/02/25 81.2 kg (179 lb) 05/02/24 86.9 kg (191 lb 9.3 oz) 02/10/24 87.5 kg (193 lb) Physical Exam: Physical Exam General: alert, appears stated age and cooperative Eyes: conjunctivae/corneas clear. PERRL, EOM's intact. Neck: no adenopathy, supple, symmetrical, trachea midline. Thyroid: No thyromegaly appreciated Lung: clear to auscultation bilaterally Heart: regular rate and rhythm, S1, S2 normal, no murmur, click, rub or gallop Extremities: extremities normal, atraumatic, no cyanosis or edema Feet: Dry skin, Right Foot: warm, good capillary refill, normal DP and normal sensory exam Left Foot: warm, good capillary refill, normal DP and normal sensory exam. Monofilament exam not assessed, bilateral lower extremities. Neuro: normal without focal findings, mental status, speech normal, alert and oriented x3 and CECY Lab Review Date: 12/29/2024 Hemoglobin A1c 11.8% Creatinine 0.80, EGFR 123 Microalbumin/creatinine ratio: 967 AST 18, ALT 18 TChol 178, TG 113, HDL 56, LDL 101 TSH 1.21, free T4--1.6 02/10/2024 Hemoglobin A1c 10.4% in office today 08/29/2023 Creatinine 1.19, eGFR 85 08/28/2023 Hemoglobin A1c 9.2% 12/19/22 HgbA1c 7.2% Na 142, K 3.8, creat 0.83, eGFR 123 AST 16, ALT 28 TSH 0.69, FT4--1.0 08/29/2022 Hemoglobin A1C 8.4% Creatinine 1.08 GFR 96 AST 17 ALT 24 TSH 1.00 FT4 1.1 Microalbumin Creatinine ratio 11 Cholesterol 147 Triglycerides 121 HL 52 LDL 71 02/28/2022 Hemoglobin A1c 7.8% Creatinine 0.9 GFR 108 AST 16 ALT 29 Cholesterol 167 triglycerides 66 HDL 59 LDL 95 TSH 0.49 Free T4 1.1 Microalbumin creatinine ratio 20 11/03/2021 Hemogloboin A1C 8.2% in office 08/02/2021 Hemoglobin A1c 7.8% Creatinine 1.01 GFR 102 AST 15 ALT 23 Microalbumin creatinine ratio 135 TSH 0.94 free T4 1.0 C-peptide 0.04 Cholesterol 159 triglycerides 35 HDL 67 LDL 85 WBC 4 hemoglobin 16 hematocrit 47 platelets 255 Assessment: Dx: 1. 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) Ambulatory referral to Endocrinology blood-glucose sensor (Dexcom G7 Sensor) Fauzia insulin glargine (Lantus Solostar U-100 Insulin) 100 unit/mL (3 mL) InPn insulin aspart U-100 (NovoLOG Flexpen U-100 Insulin) 100 unit/mL (3 mL) InPn acetone, urine, test (Ketone Urine Test) Strp Type 1 diabetes, under inadequate control Currently managed with: Humalog insulin: 10 units at breakfast; 10 units at lunch; 10 units at supper Lantus insulin: 25 units at bedtime Sliding scale: Use as directed with Humalog insulin before meals and at bedtime. 151-200: 2 units fast acting insulin 201-250: 4 units fast acting insulin 251-300: 6 units fast acting insulin 301-350: 8 units fast acting insulin 351-400: 10 units fast acting insulin above 400: 12 units fast acting insulin Current Hemoglobin A1C= Lab Results Component Value Date HGBA1C 10.6 (H) 04/30/2024 HGBA1C 10.4 (A) 02/10/2024 HGBA1C 9.2 (H) 08/28/2023 Home blood sugar records: None for review Any episodes of hypoglycemia? 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 He was encouraged to get yearly eye examinations Nephropathy: Positive Microalbuminuria 12/29/2024 Creatinine 0.80, EGFR 123 Microalbumin/creatinine ratio 967--continue to monitor closely. Discussed elevation with patient Lab Results Component Value Date CREATININE 0.80 12/29/2024 EXTEGFR 123 12/29/2024 Microlbumin/creat ratio: 11 08/29/2022 Is patient on CHING inhibitor or angiotensin II receptor michael? no Peripheral Neuropathy: Negative Denies symptoms associated with neuropathy (numbness and/or tingling) Autonomic Neuropathy: Negative Hypoglycemia unawareness. Senses low BG at 60mg/dl. Hyperlipidemia: Negative Currently taking: No lipid lowering agents. LFT's WNL 12/29/2024 AST 18, ALT 18 TChol 178, TG 113, HDL 56, LDL 101 -- Discussed lifestyle modifications Hypertension: Negative . Currently taking: Patient on no antihypertensives BP: 134/84 Cardiac: Negative Experiencing chest pain No . Experiencing shortness of breath No History of No history of CAD Follows routinely with: Vascular: Positive History of DVT in arm after hit with softball - on short term Eliquis, since discontinued Feet: 02/10/2024 Follows with Podiatry: No International Recruiter: History of foot ulceration: No History of amputation: No Thyroid: Lab Results Component Value Date TSH 0.31 08/28/2023 Negative 12/29/2024 TSH 1.21, free T4--1.6 Other: Plan: 1. Type 1 diabetes Humalog insulin: 15 units at breakfast; 15 units at lunch; 15 units at supper Sliding scale: Use as directed with Humalog insulin before meals and at bedtime. 151-200: 2 units fast acting insulin 201-250: 4 units fast acting insulin 251-300: 6 units fast acting insulin 301-350: 8 units fast acting insulin 351-400: 10 units fast acting insulin above 400: 12 units fast acting insulin Lantus insulin: 25 units at dinner The above changes in bold were made to his diabetic medication management today. He is advised to send updated blood glucose readings and insulin doses to our office in 1 week for further adjustment to his insulin to be made at that time if needed. He inquired about a referral to endocrinology in [place] as he is now residing in [place] and it would be closer/easier for him to get to appointments. He is reminded that his goal hemoglobin A1c is less than 7%. He is advised to contact our office should he experience multiple episodes of hypo-/hyperglycemia with any questions/concerns prior to follow-up. We discussed the complications that could occur should her diabetes remain out of control which was including but not limited to: Renal failure Coronary Artery disease Blindness Stroke or CVA I am managing Everardo Escobar for complex chronic condition(s) serving as the focal point for the patient's care for consistency and continuity over time. 2. Education: Reviewed ABCs of diabetes management (respective goals in parentheses): A1C (7.0-8.0), blood pressure (<130/80), and cholesterol (LDL <100). 3. Compliance at present is estimated to be good. Efforts to improve compliance (if necessary) will be directed at regular blood sugar monitorin times daily. 4. Follow up: 4 months 5. Record blood sugar readings as instructed. Call if BG consistently <70 or >250. [phone] 6. Bring blood sugar meter to follow up appointment. Orders Placed This Encounter Procedures Ambulatory referral to Endocrinology Electronically signed by ARON Barrera 01/02/2025 documented in this encounter [facility] 01-02-2025 Note Patient ID: Everardo Escobar is a 29 y.o. male 1995 Subjective: Everardo Escobar presents for follow up of Type 1 diabetes Patient was diagnosed with T1DM in 07/2019. He presents today for follow-up of his type 1 diabetes. His most recent hemoglobin A1c is 11.8%. He did have labs completed prior to his appointment today which are reviewed below. He is currently self-monitoring blood glucose readings 4 times daily. Unfortunately he did not bring any readings in for review today. He does share that he has relocated and is now living in [place]. He is asking for a referral be placed to endocrinology in [place] closer to where he is now residing. Currently taking: Humalog insulin: 10 units at breakfast; 10 units at lunch; 10 units at supper Lantus insulin: 25 units at bedtime Sliding scale: Use as directed with Humalog insulin before meals and at bedtime. 151-200: 2 units fast acting insulin 201-250: 4 units fast acting insulin 251-300: 6 units fast acting insulin 301-350: 8 units fast acting insulin 351-400: 10 units fast acting insulin above 400: 12 units fast acting insulin Current Outpatient Medications Medication Sig Dispense Refill acetone, urine, test (Ketone Urine Test) Strp 1 (one) strip by Miscellaneous route as needed . 30 each 3 blood-glucose sensor ([employer] G7 Sensor) Fauzia Use as directed to check blood glucose 4 times daily. DX . Change sensor every 10 days. . 3 each 11 insulin aspart U-100 (NovoLOG Flexpen U-100 Insulin) 100 unit/mL (3 mL) InPn Use as directed Three times a day plus sliding scale, approx 60 units total per day. Use insulin: CHO ratio of 1:10 for meals and snacks . 30 mL 6 insulin glargine (Lantus Solostar U-100 Insulin) 100 unit/mL (3 mL) InPn Inject 25 (twenty five) Units under the skin nightly . 15 mL 11 No current facility-administered medications for this visit. Review of Systems: Review of Systems Constitutional: Negative for activity change, appetite change, fatigue and unexpected weight change. Eyes: Negative for visual disturbance. Respiratory: Negative for chest tightness and shortness of breath. Cardiovascular: Negative for chest pain, palpitations and leg swelling. Gastrointestinal: Negative for abdominal pain, constipation, diarrhea, nausea and vomiting. Endocrine: Negative for polydipsia, polyphagia and polyuria. Genitourinary: Negative for difficulty urinating and frequency. Musculoskeletal: Negative for arthralgias and myalgias. Skin: Negative for rash and wound. Neurological: Negative for dizziness, weakness and numbness. Psychiatric/Behavioral: Negative for sleep disturbance. The patient is not nervous/anxious. The following portions of the patient's history were reviewed and updated as appropriate: allergies, current medications, past family history, past medical history, past social history, past surgical history and problem list. Objective: BP (P) 134/84 (Patient Position: Sitting) Pulse 99 Wt 81.2 kg (179 lb) BMI 24.28 kg/m Wt Readings from Last 3 Encounters: 01/02/25 81.2 kg (179 lb) 05/02/24 86.9 kg (191 lb 9.3 oz) 02/10/24 87.5 kg (193 lb) Physical Exam: Physical Exam General: alert, appears stated age and cooperative Eyes: conjunctivae/corneas clear. PERRL, EOM's intact. Neck: no adenopathy, supple, symmetrical, trachea midline. Thyroid: No thyromegaly appreciated Lung: clear to auscultation bilaterally Heart: regular rate and rhythm, S1, S2 normal, no murmur, click, rub or gallop Extremities: extremities normal, atraumatic, no cyanosis or edema Feet: Dry skin, Right Foot: warm, good capillary refill, normal DP and normal sensory exam Left Foot: warm, good capillary refill, normal DP and normal sensory exam. Monofilament exam not assessed, bilateral lower extremities. Neuro: normal without focal findings, mental status, speech normal, alert and oriented x3 and CECY Lab Review Date: 12/29/2024 Hemoglobin A1c 11.8% Creatinine 0.80, EGFR 123 Microalbumin/creatinine ratio: 967 AST 18, ALT 18 TChol 178, TG 113, HDL 56, LDL 101 TSH 1.21, free T4--1.6 02/10/2024 Hemoglobin A1c 10.4% in office today 08/29/2023 Creatinine 1.19, eGFR 85 08/28/2023 Hemoglobin A1c 9.2% 12/19/22 HgbA1c 7.2% Na 142, K 3.8, creat 0.83, eGFR 123 AST 16, ALT 28 TSH 0.69, FT4--1.0 08/29/2022 Hemoglobin A1C 8.4% Creatinine 1.08 GFR 96 AST 17 ALT 24 TSH 1.00 FT4 1.1 Microalbumin Creatinine ratio 11 Cholesterol 147 Triglycerides 121 HL 52 LDL 71 02/28/2022 Hemoglobin A1c 7.8% Creatinine 0.9 GFR 108 AST 16 ALT 29 Cholesterol 167 triglycerides 66 HDL 59 LDL 95 TSH 0.49 Free T4 1.1 Microalbumin creatinine ratio 20 11/03/2021 Hemogloboin A1C 8.2% in office 08/02/2021 Hemoglobin A1c 7.8% Creatinine 1.01 GFR 102 AST 15 ALT 23 Microalbumin creatinine ratio 135 TSH 0.94 free T4 1.0 C-peptide 0.04 Cholesterol 159 triglycerides 35 HDL 67 LDL 85 WBC 4 hemoglobin 16 hematocr (more content not included)... [facility] 11-06-2024 Consult note [facility] 11-06-2024 Note [facility] 11-06-2024 Discharge summary [facility] 11-06-2024 Progress note Note Date/Time November 06, 2024 6:41am [facility] Medical Records Department [address] [place] [address] Progress Note - Hospitalist 11/06/24 0105 MR#: [id number] Acct: [id number] Name: EVERARDO ESCOBARN Rep #:[id number] : 1995 29 From: Izaiah Smith DO PCP: Care Physician,No Primary Status :ADM IN Location: [place] [address] Hospitalist Note I was called in the late evening by [facility] and informed patient had spiked his blood glucose to 416 mg/dL in spite of being covered with long-acting and sliding scale insulin. New labs were ordered with the patient showing he has anelevated anion gap of 18 (after dropping to 10 at 12:20 PM on 11/05/2024 from 37 on admission at 11:36 PM on November 04, 2024) with a corresponding increase beta hydroxybutyric acid level of 2.5 mmol/L (normal 0.0-0.3) in addition to the VBG with pH 7.30 indicating that this patient has gone back into DKA. A review of his records shows his beta hydroxybutyrate level was elevated at 10.9 mmol/L on admission and it only dropped to 2.4 mmol/L at 5 AM on November 05, 2024 indicatingpatient was likely still in DKA but was apparently started on subcu insulin and oral diet with persistent hyperglycemia throughout the day and worsening indicesnoted above. Therefore, he was restarted on DKA protocol with insulin drip, made n.p.o. and started on D5 1/2 NS with 20 meq KCl @ 150 cc/hour x 2L. Patient has a recheck of his beta hydroxybutyrate and ABG pending in the a.m. sotrend can be followed and insulin drip can be stopped when this indicator is negative so that he can safely be restarted on subcutaneous insulin at that time. [facility] was updated with plan. UN DATE: 11/06/24 [facility], DEPARTMENT OF LABORATORIES PAGE 1 RUN TIME: 0637 Specimen Inquiry [address] [facility] [address], [place], [address] PATIENT: EVERARDO ESCOBAR LOC: [facility] U #: [id number] : 1995 AGE/SX: 29/M FACILITY: [facility] ROOM: [facility] RE11/04/[address]: Dr. Charity Michele MD STATUS:ADM IN ED: 1 DIS: ~ SPEC #: [id number] ERMA: 11/05/24 STATUS: COMP REQ #: [id number] RECD: 11/05/[address]: Dr. Charity Michele MD ENTERED: 11/05/[address]: Dr. Izaiah Varela, [facility] Physician,No Primary ~ Test Result Flag Reference Range VIBG Blood Gas Type CHET SITE Not entered O2 Delivery Dev Room Air VBG pH 7.30 L 7.32-7.42 VBG pCO2 34.3 L 41-51 mmHg VBG PO2 38 25-40 mmHg VBG HCO3 17 L 22-26 mmol/L VBG BE -10 L -1.0-3.5 mmol/L VBG SO2 66 50-70 % VBG TCO2 18 L 23-33 mmol/L RUN DATE: 11/06/24 [facility], DEPARTMENT OF LABORATORIES PAGE 1 RUN TIME: 0639 Specimen Inquiry [address] [place], [address] PATIENT: EVERARDO ESCOBAR LOC: [facility] U #: [id number] : 1995 AGE/SX: 29/M FACILITY: [facility] ROOM: [facility] RE11/04/[address]: Dr. Charity Michele MD STATUS:ADM IN ED: 1 DIS: ~ SPEC #: [id number] ERMA: 11/05/24 STATUS: COMP REQ #: [id number] RECD: 11/05/[address]: Dr. Izaiah Varela, DO ENTERED: 11/05/[address]: Dr. Charity Michele MD Care Physician,No Primary ~ Test Result Flag Reference Range BMP GLU 270 H 70-99 mg/dL BUN 14 4-19 mg/dL CREAT,SERUM 1.17 0.70-1.20 mg/dL eGFR 87 >60 mL/min/1.73m2 CKD-EPI Creatinine Equation (2020) ECRCL 102.25 50-250 ml/min BUN/CRE 12.0 10-20 RATIO Calcium 8.6 7.6-11.0 mg/dL NA 135 133-145 mmol/L Potassium 3.4 3.3-5.1 mmol/L CL 100 98-108 mmol/L CO2 16.1 L 21.0-32.0 mmol/L GAP 18 H 5-15 BETA-HYDROXYBUT 2.5 0.0-0.3 mmol/L RUN DATE: 11/06/24 [facility], DEPARTMENT OF LABORATORIES PAGE 1 RUN TIME: 0640 Specimen Inquiry [address] [place], [address] PATIENT: EVERARDO ESCOBAR LOC: [facility] U #: [id number] : 1995 AGE/SX: 29/M FACILITY: [facility] ROOM: [facility] RE11/04/[address]: Dr. Charity Michele MD STATUS:ADM IN ED: 1 DIS: ~ SPEC #: [id number] ERMA: 11/05/24 STATUS: COMP REQ #: [id number] RECD: 11/06/[address]: Dr. Charity Michele MD ENTERED: 11/06/[address]: Dr. Izaiah Varela DO Care Physician,No Primary ~ Test Result Flag Reference Range FINGERSTICK GLU 416 H 74-106 mg/dL MANAGEMENT OF PATIENT CARE PER NURSING PROTOCOL 11/06/24 0641 <Electronically signed by Izaiah Varela DO> Cosigner Signature (if applicable): CC: ~ Signed [facility] Work Phone: [phone] 632-897203-17-2025 Progress note [facility] Medical Records Department [address] [place] [address] Progress Note - Hospitalist 11/06/24104 MR#: [id number] Acct: [id number] Name: EVERARDO ESCOBAR Rep #:[id number] : 1995 29 From: Izaiah Smith DO PCP: Care Physician,No Primary Status :ADM IN Location: [place] [address]- Hospitalist Note I was called in the late evening by [facility] and informed patient had spiked his blood glucose to 416mg/dL in spite of being covered with long-acting and sliding scale insulin. New labs were ordered with the patient showing he has anelevated anion gap of 18 (after dropping to 10 at 12:20 PM on 11/05/2024 from 37 on admission at 11:36 PM on November 04, 2024) with a corresponding increase beta hydroxybutyric acid level of 2.5 mmol/L (normal 0.0-0.3) in addition to the VBG with pH 7.30 indicating thatthis patient has gone back into DKA. A review of his records shows his beta hydroxybutyrate level was elevated at 10.9 mmol/L on admission and it only dropped to 2.4 mmol/L at 5 AM on November 05, 2024 i ndicatingpatient was likely still in DKA but was apparently started on subcu insulin and oral diet with persistent hyperglycemia throughout the day and worsening indicesnoted above. Therefore, he wasrestarted on DKA protocol with insulin drip, made n.p.o. and started on D5 1/2 NS with 20 meq KCl @150 cc/hour x 2L. Patient has a recheck of his beta hydroxybutyrate and ABG pending in the a.m. sotrend can be followed and insulin drip can be stopped when this indicator is negative so that he can safely be restarted on subcutaneous insulin at that time. [facility] was updated with plan. UN DATE: 11/06/24 [facility], DEPARTMENT OF LABORATORIES PAGE 1 RUN TIME: 06 Specimen Inquiry [address], [place], [address] PATIENT: EVERARDO ESCOBAR LOC: [facility] U #: [id number] : 1995 AGE/SX: 29/M FACILITY: [facility] ROOM: [facility] RE11/04/[address]: Dr. Charity Michele MD STATUS:ADM IN ED: 1 DIS: ~ SPEC #: [id number] ERMA: 11/05/24 STATUS: COMP REQ #: [id number] RECD: 11/05/[address]: Dr. Charity Michele MD ENTERED: 11/05/[address]: Dr. Izaiah Varela, Care Physician,No Primary ~ Test Result Flag Reference Range VIBG Blood Gas Type CHET SITE Not entered O2 Delivery Dev Room Air VBG pH 7.30 L 7.32-7.42 VBG pCO2 34.3 L 41-51 mmHg VBG PO2 38 25-40 mmHg VBG HCO3 17 L 22-26 mmol/L VBG BE -10 L -1.0-3.5 mmol/L VBG SO2 66 50-70 % VBG TCO2 18 L 23-33 mmol/L RUN DATE: 11/06/24 [facility], DEPARTMENT OF LABORATORIES PAGE 1 RUN TIME: 0639 Specimen Inquiry [address] [place], [place], [id number] PATIENT: EVERARDO ESCOBAR LOC: [facility] U #: [id number] : 1995 AGE/SX: 29/M FACILITY: [facility] ROOM: [facility] RE11/04/[address]: Dr. Charity Michele MD STATUS:ADM IN ED: 1 DIS: ~ SPEC #: [id number] ERMA: 11/05/24 STATUS: COMP REQ #: [id number] RECD: 11/05/[address]: Dr. Izaiah Varela, DO ENTERED: 11/05/24-[address]: Dr. Charity Michele MD Care Physician,No Primary ~ Test Result Flag Reference Range BMP GLU 270 H 70-99 mg/dL BUN 14 4-19 mg/dL CREAT,SERUM 1.17 0.70-1.20 mg/dL eGFR 87 >60 mL/min/1.73m2 CKD-EPI Creatinine Equation (2020) ECRCL 102.25 50-250 ml/min BUN/CRE 12.0 10-20 RATIO Calcium 8.6 7.6-11.0 mg/dL NA 135 133-145 mmol/L Potassium 3.4 3.3-5.1 mmol/L CL 100 98-108 mmol/L CO2 16.1 L 21.0-32.0 mmol/L GAP 18 H 5-15 BETA-HYDROXYBUT 2.5 0.0-0.3 mmol/L RUN DATE: 11/06/24 [facility], DEPARTMENT OF LABORATORIES PAGE 1 RUN TIME: 0640 Specimen Inquiry [address] [place], [place], [id number] PATIENT: EVERARDO ESCOBAR LOC: U U #: [id number] : 1995 AGE/SX: 29/M FACILITY: [facility] ROOM: [facility] RE11/04/[address]: Dr. Charity Michele MD STATUS:ADM IN ED: 1 DIS: ~ SPEC #: [id number] ERMA: 11/05/24 STATUS: COMP REQ #: [id number] RECD: 11/06/[address]: Dr. Charity Michele MD ENTERED: 11/06/24-[address]: Dr. Izaiah Varela, DO Care Physician,No Primary ~ Test Result Flag Reference Range FINGERSTICK GLU 416 H 74-106 mg/dL MANAGEMENT OF PATIENT CARE PER NURSING PROTOCOL 11/06/24 0641 Cosigner Signature (if applicable): CC: ~ Signed [facility]03-16-2025 Progress note Author Charity Michele [facility] Note Date/Time November 05, 2024 11: 25[facility] Medical Records Department [address] [place] [id number] Progress Note - Hospitalist 11/05/24 0750 MR#: [id number] Acct: [id number] Name: EVERARDO ESCOBAR Rep #:[id number] : 1995 29 From: Charity Michele MD PCP: Care Physician,No Primary Status :ADM IN Location: ICU ICU02-1 Reason for Visit Reason for Visit: Diagnoses Elevated white blood cell count, unspecified (11/04/24) Type 1 diabetes mellitus with ketoacidosis without coma (11/04/24) Type 1 diabetes mellitus with hyperglycemia (11/04/24) Dehydration (11/04/24) Hyperkalemia (11/04/24) Acute kidney failure, unspecified (11/04/24) Generalized abdominal pain (11/04/24) Nausea with vomiting, unspecified (11/04/24) Diarrhea, unspecified (11/04/24) Tobacco use (11/04/24) Subjective Subjective Patient resting comfortably in bed, minimally wants to wake up to participate inexam but no acute complaints and no acute distress Objective Data Objective Data Vital Signs: Vital Signs Temp Pulse Resp BP Pulse Ox O2 Del Method 98.0 F 100 17 119/65 97 Room Air 11/05/24 04:00 11/05/24 07:00 11/05/24 07:00 11/05/24 07:00 11/05/24 07:00 11/05/24 07:00 Oxygen Delivery Method Room Air Weight: 78 kg Body Mass Index (BMI) 23.3 Intake & Output: Intake and Output for Last 24 Hours 11/03/24 11/04/24 11/05/24 23:59 23:59 23:59 Intake Total 3000 / 3011.7 2075.9 / 2075.9 Output Total 1300 / 1300 Balance 3000 / 2311.7 775.9 / 775.9 Lab / Micro Data 11/05/24 05:00 11/05/24 09:00 Labs: Laboratory Results - last 24 hr 11/04/24 21:32: POC Glucose > 500 H* 11/04/24 21:36: WBC 11.1 H, RBC 5.44, Hgb 16.3, Hct 49.6, MCV 91.2, MCH 30.0, MCHC 32.9, RDW Std Deviation 42.6, RDW Coeff of Willam 12.9, Plt Count 397, MPV 9.3, Immature Gran % (Auto) 0.600, Neut % (Auto) 78.4 H, Lymph % (Auto) 11.7 L, [place] % (Auto) 6.8, Eos % (Auto) 1.1, Baso % (Auto) 1.4 H, Absolute Neuts (auto) 8.7 H, Absolute Lymphs (auto) 1.29, Nucleated RBC % 0, Sodium 136, Potassium 5.4H, Chloride 93 L, Carbon Dioxide 6.6 L*, Anion Gap 37 H, BUN 18, Creatinine 1.46H, Estim Creat Clear Calc 81.94, Est GFR (MDRD) Non-Af 66, BUN/Creatinine Ratio 12.3, Glucose 629 H*, Calcium 9.7, b-Hydroxybutyric mmol/L 10.9 11/04/24 22:24: Urine Color Yellow, Urine Clarity Clear, Urine pH 5.0, Ur Specific [place] 1.020, Urine Protein 30 H, Urine Glucose (UA) 1000 H, Urine Ketones 150 A*, Urine Occult Blood 10 H, Urine Nitrite Negative, Urine BilirubinNegative, Urine Urobilinogen Normal, Ur Leukocyte Esterase Negative, Urine RBC 0SEEN, Urine WBC 0 SEEN, Ur Squamous Epith Cells 0 SEEN, Urine Bacteria 0 SEEN, Urine Mucus 0 SEEN 11/04/24 22:31: POC Glucose > 500 H* 11/04/24 23:20: POC Glucose > 500 H* 11/05/24 00:11: POC Glucose 370 H 11/05/24 00:35: Sodium 140, Potassium 4.4, Chloride 106, Carbon Dioxide 5.2 L*, Anion Gap 29 H, BUN 17, Creatinine 1.26 H, Estim Creat Clear Calc 94.95, Est GFR(MDRD) Non-Af 79, BUN/Creatinine Ratio 13.2, Glucose 338 H, Hemoglobin A1c 12.5,Calcium 8.2, Magnesium 2.1, Vitamin B12 1315 H, Serum Folate 9.76, TSH 0.231 L, Ethyl Alcohol < 10.1 11/05/24 01:06: POC Glucose 227 H 11/05/24 02:04: POC Glucose 174 H 11/05/24 03:04: POC Glucose 137 H 11/05/24 03:05: Sodium 142, Potassium 4.4, Chloride 111 H, Carbon Dioxide 10.9 L, Anion Gap 20 H, BUN 14, Creatinine 1.13, Estim Creat Clear Calc 105.87, Est GFR (MDRD) Non-Af 90, BUN/Creatinine Ratio 12.3, Glucose 156 H, Calcium 8.0 11/05/24 03:58: POC Glucose 149 H 11/05/24 05:00: WBC 12.1 H, RBC 4.44 L, Hgb 13.5, Hct 38.5 L, MCV 86.7, MCH 30.4, MCHC 35.1 D, RDW Std Deviation 39.8, RDW Coeff of Willam 12.7, Plt Count 286, MPV 8.7, Immature Gran % (Auto) 0.600, Neut % (Auto) 78.8 H, Lymph % (Auto)11.3 L, [place] % (Auto) 8.8, Eos % (Auto) 0.1, Baso % (Auto) 0.4, Absolute Neuts (auto) 9.5 H, Absolute Lymphs (auto) 1.36, Nucleated RBC % 0, Sodium 143, Potassium 4.1, Chloride 112 H, Carbon Dioxide 14.7 L, Anion Gap 16 H, BUN 12, Creatinine 1.15, Estim Creat Clear Calc 104.03, Est GFR (MDRD) Non-Af 88, BUN/Creatinine Ratio 10.7, Glucose 130 H, Calcium 8.2, Phosphorus 2.7, b-Hydroxybutyric mmol/L 2.4 11/05/24 06:00: POC Glucose 97 11/05/24 06:56: POC Glucose 101 ABG Data ABG results: ABG 11/04/24 11/05/24 11/05/24 22:05 00:43 05:09 Specimen Type ART ART CHET Sample Site R Radial R Radial Not entered pH 7.06 L* 7.16 L* Bicarbonate Actual 4.3 L 4.4 L Total CO2 < 5 < 5 Base Excess -26 L -24 L O2 Saturation 97 98 O2 % 21.0 ABG pCO2 15.5 L* 12.4 L* ABG pO2 126 H 131 H Anne Test Positive Positive VBG pH 7.32 VBG pO2 80 H VBG HCO3 16 L VBG Total CO2 17 L VBG O2 Sat (Calc) 95 H VBG Base Excess -10 L POC Mix VBG pCO2 Pt Tmp 30.9 L O2 Delivery Device Not entered Room Air Room Air Vent Mode Not entered Not entered Crit Call To/Read Back Yes Yes Blood Gas Notified Whom dr. cerda Blood Gas Notified Time 00:44:57 Rhythm Strip Rhythm Strip: Sinus Tach Rate: 110 Ectopy: None Physical Exam Narrative General: Resting comfortably, will wake up but goes back to sleep and reluctant to participate in exam HEENT: Atraumatic, normocephalic Eyes: extraocular movements grossly intact Neck: Supple Respiratory: normal respiratory effort Cardiovascular: no edema appreciated GI: nondistended, nontender Extremities: Moving all extremities Neuro: No overt focal neurological deficits Psych: Not overtly cooperative Assessment & Plan Assessment/Plan (1) DKA (diabetic ketoacidosis): QUALIFIERS: Diabetes mellitus complication detail: without coma Diabetes mellitus type: type 1 Qualified Code(s): E10.10 - Type 1 diabetes mellitus with ketoacidosis without coma PLAN: Plan #DKA in setting of chronic type 1 diabetes -Serum glucose in ED 629, anion gap 37, bicarb 6.6 with a pH of 7.06 -Urine ketones positive -Serum beta hydroxybutyrate acid 10.9 -Admit to intensive care unit -N.p.o. -Insulin drip started -Aggressive fluid hydration -Glucose checks and DKA protocol -BMP every 4H -Replace electrolytes per protocol -I's and O's -A1c 12.5 -When serum glucose is <250 mg/dl, change IV fluids to D5%1/2NS at 150 ml/hr andcontinue insulin drip as per nomogram -11/05: Patient's gap is closed, diet order entered and patient to be transition to subcu # ZAHIDA -Creatinine 1.46 on admission with a baseline around 1.1 -11/05: Today is 1.15 with IV fluids, continue present management #Tobacco use -Advise cessation -Nicotine replacement available if desired #DVT ppx: Lovenox subcu Charity Michele MD Time spent in the patient's overall evaluation, decision-making process, review of diagnostic data, adjustment of management, discussion with other providers, nursing and ancillary staff involved in patient's care documentation, 36 Minutes Charges/Coding Visit Charges Inpatient E&M: 44467 Subs Hosp L2 11/05/24 1125 <Electronically signed by Charity Michele MD> Cosigner Signature (if applicable): CC: ~ Signed [facility] Work Phone: [phone] 176-527003-16-2025 Progress note [facility] Medical Records Department [address] [place] [address] Progress Note - Hospitalist 11/05/24 0750 MR#: [id number] Acct: [id number] Name: EVERARDO ESCOBAR Rep #:[id number] : 1995 29 From: Charity Michele MD PCP: Care Physician,No Primary Status :ADM IN Location: ICU ICU02-1 Reason for Visit Reason for Visit: Diagnoses Elevated white blood cell count, unspecified (11/04/24) Type 1 diabetes mellitus with ketoacidosis without coma (11/04/24) Type 1 diabetes mellitus with hyperglycemia (11/04/24) Dehydration (11/04/24) Hyperkalemia (11/04/24) Acute kidney failure, unspecified (11/04/24) Generalized abdominal pain (11/04/24) Nausea with vomiting, unspecified (11/04/24) Diarrhea, unspecified (11/04/24) Tobacco use (11/04/24) Subjective Subjective Patient resting comfortably in bed, minimally wants to wake up to participate inexam but no acute complaints and no acute distress Objective Data Objective Data Vital Signs: Vital Signs Temp Pulse Resp BP Pulse Ox O2 Del Method 98.0 F 100 17 119/65 97 Room Air 11/05/24 04:00 11/05/24 07:00 11/05/24 07:00 11/05/24 07:00 11/05/24 07:00 11/05/24 07:00 Oxygen Delivery Method Room Air Weight: 78 kg Body Mass Index (BMI) 23.3 Intake & Output: Intake and Output for Last 24 Hours 11/03/24 11/04/24 11/05/24 23:59 23:59 23:59 Intake Total 3000 / 3011.7 2075.9 / 2075.9 Output Total 1300 / 1300 Balance 3000 / 2311.7 775.9 / 775.9 Lab / Micro Data 11/05/24 05:00 11/05/24 09:00 Labs: Laboratory Results - last 24 hr 11/04/24 21:32: POC Glucose > 500 H* 11/04/24 21:36: WBC 11.1 H, RBC 5.44, Hgb 16.3, Hct 49.6, MCV 91.2, MCH 30.0, MCHC 32.9, RDW Std Deviation 42.6, RDW Coeff of Willam 12.9, Plt Count 397, MPV 9.3, Immature Gran % (Auto) 0.600, Neut % (Auto) 78.4 H, Lymph % (Auto) 11.7 L, [place] % (Auto) 6.8, Eos % (Auto) 1.1, Baso % (Auto) 1.4 H, Absolute Neuts (auto) 8.7 H, Absolute Lymphs (auto) 1.29, Nucleated RBC % 0, Sodium 136, Potassium 5.4H, Chloride 93 L, Carbon Dioxide 6.6 L*, Anion Gap 37 H, BUN 18, Creatinine 1.46H, Estim Creat Clear Calc 81.94, Est GFR (MDRD) Non-Af 66, BUN/Creatinine Ratio 12.3, Glucose 629 H*, Calcium 9.7, b-Hydroxybutyric mmol/L 10.9 11/04/24 22:24: Urine Color Yellow, Urine Clarity Clear, Urine pH 5.0, Ur Specific [place] 1.020, Urine Protein 30 H, Urine Glucose (UA) 1000 H, Urine Ketones 150 A*, Urine Occult Blood 10 H, Urine Nitrite Negative, Urine BilirubinNegative, Urine Urobilinogen Normal, Ur Leukocyte Esterase Negative, Urine RBC 0SEEN, Urine WBC 0 SEEN, Ur Squamous Epith Cells 0 SEEN, Urine Bacteria 0 SEEN, Urine Mucus 0 SEEN 11/04/24 22:31: POC Glucose > 500 H* 11/04/24 23:20: POC Glucose > 500 H* 11/05/24 00:11: POC Glucose 370 H 11/05/24 00:35: Sodium 140, Potassium 4.4, Chloride 106, Carbon Dioxide 5.2 L*, Anion Gap 29 H, BUN17, Creatinine 1.26 H, Estim Creat Clear Calc 94.95, Est GFR(MDRD) Non-Af 79, BUN/Creatinine Ratio 13.2, Glucose 338 H, Hemoglobin A1c 12.5,Calcium 8.2, Magnesium 2.1, Vitamin B12 1315 H, Serum Folate 9.76, TSH 0.231 L, Ethyl Alcohol < 10.1 11/05/24 01:06: POC Glucose 227 H 11/05/24 02:04: POC Glucose 174 H 11/05/24 03:04: POC Glucose 137 H 11/05/24 03:05: Sodium 142, Potassium 4.4, Chloride 111 H, Carbon Dioxide 10.9 L, Anion Gap 20 H, BUN 14, Creatinine 1.13, Estim Creat Clear Calc 105.87, Est GFR (MDRD) Non-Af 90, BUN/Creatinine Ratio 12.3, Glucose 156 H, Calcium 8.0 11/05/24 03:58: POC Glucose 149 H 11/05/24 05:00: WBC 12.1 H, RBC 4.44 L, Hgb 13.5, Hct 38.5 L, MCV 86.7, MCH 30.4, MCHC 35.1 D, RDW Std Deviation 39.8, RDW Coeff of Willam 12.7, Plt Count 286, MPV 8.7, Immature Gran % (Auto) 0.600, Neut % (Auto) 78.8 H, Lymph % (Auto)11.3 L, [place] % (Auto) 8.8, Eos % (Auto) 0.1, Baso % (Auto) 0.4, Absolute Neuts (auto) 9.5 H, Absolute Lymphs (auto) 1.36, Nucleated RBC % 0, Sodium 143, Potassium 4.1,Chloride 112 H, Carbon Dioxide 14.7 L, Anion Gap 16 H, BUN 12, Creatinine 1.15, Estim Creat Clear Calc 104.03, Est GFR (MDRD) Non-Af 88, BUN/Creatinine Ratio 10.7, Glucose 130 H, Calcium 8.2, Phosphorus 2.7, b- Hydroxybutyric mmol/L 2.4 11/05/24 06:00: POC Glucose 97 11/05/24 06:56: POC Glucose 101 ABG Data ABG results: ABG 11/04/24 11/05/24 11/05/24 22:05 00:43 05:09 Specimen Type ART ART CHET Sample Site R Radial R Radial Not entered pH 7.06 L* 7.16 L* Bicarbonate Actual 4.3 L 4.4 L Total CO2 < 5 < 5 Base Excess -26 L -24 L O2 Saturation 97 98 O2 % 21.0 ABG pCO2 15.5 L* 12.4 L* ABG pO2 126 H 131 H Anne Test Positive Positive VBG pH 7.32 VBG pO2 80 H VBG HCO3 16 L VBG Total CO2 17 L VBG O2 Sat (Calc) 95 H VBG Base Excess -10 L POC Mix VBG pCO2 Pt Tmp 30.9 L O2 Delivery Device Not entered Room Air Room Air Vent Mode Not entered Not entered Crit Call To/Read Back Yes Yes Blood Gas Notified Whom dr. cerda Blood Gas Notified Time 00:44:57 Rhythm Strip Rhythm Strip: Sinus Tach Rate: 110 Ectopy: None Physical Exam Narrative General: Resting comfortably, will wake up but goes back to sleep and reluctant to participate in exam HEENT: Atraumatic, normocephalic Eyes: extraocular movements grossly intact Neck: Supple Respiratory: normal respiratory effort Cardiovascular: no edema appreciated GI: nondistended, nontender Extremities: Moving all extremities Neuro: No overt focal neurological deficits Psych: Not overtly cooperative Assessment & Plan Assessment/Plan (1) DKA (diabetic ketoacidosis): QUALIFIERS: Diabetes mellitus complication detail: without coma Diabetes mellitus type: type 1 Qualified Code(s): E10.10 - Type 1 diabetes mellitus with ketoacidosis without coma PLAN: Plan #DKA in setting of chronic type 1 diabetes -Serum glucose in ED 629, anion gap 37, bicarb 6.6 with a pH of 7.06 -Urine ketones positive -Serum beta hydroxybutyrate acid 10.9 -Admit to intensive care unit -N.p.o. -Insulin drip started -Aggressive fluid hydration -Glucose checks and DKA protocol -BMP every 4H -Replace electrolytes per protocol -I's and O's -A1c 12.5 -When serum glucose is <250 mg/dl, change IV fluids to D5%1/2NS at 150 ml/hr andcontinue insulindrip as per nomogram -11/05: Patient's gap is closed, diet order entered and patient to be transition to subcu # ZAHIDA -Creatinine 1.46 on admission with a baseline around 1.1 -11/05: Today is 1.15 with IV fluids, continue present management #Tobacco use -Advise cessation -Nicotine replacement available if desired #DVT ppx: Lovenox subcu Charity Michele MD Time spent in the patient's overall evaluation, decision-making process, review of diagnostic data,adjustment of management, discussion with other providers, nursing and ancillary staff involved in patient's care documentation, 36 Minutes Charges/Coding Visit Charges Inpatient E&M: 00684 Subs Hosp L2 11/05/24 1125 Cosigner Signature (if applicable): CC: ~ Signed [facility]03-16-2025 History and physical note Author Izaiah Oliveros [facility] Note Date/Time November 05, 2024 6:5 8am [facility] Medical Records Department [address] [place] [id number] H&P Exam - Hospitalist 11/04/24 2242 MR#: [id number] Acct: [id number] Name: EVERARDO ESCOBAR Rep #:[id number] : 1995 29 From: Izaiah Smith DO PCP: Care Physician,No Primary Status :ADM IN Location: ICU ICU02-1 HPI - General General Date of Admission: 11/04/24 Date of Service: 11/04/24 Chief Complaint: Severe Hyperglycemia, Nausea, Vomiting and Diarrhea. HPI Narrative EVERARDO ESCOBAR, is a 29 M with a past medical history of DM-1; uncontrolled for the past ~5 years with previous episodes of DKA, history of pyloric stenosis, chronic diarrhea, history of ZAHIDA, tobacco abuse and history of admission here from July 26, 2024 to July 27, 2024 for treatment of DKA who presents to [facility] ER complaining of severe hyperglycemia, nausea, vomiting and diarrhea. Mr. Escobar reports his symptoms began several days prior to admission with blood sugars persistently elevated over the 500 mg/dL range. He also admits to nausea and vomiting with bilious emesis in the settingof his chronic nonbloody diarrhea. He states he currently has no primary care physician and believes he is in DKA again. He denies associated fever, chills, runny nose, sore throat, shortness of breath, cough, chest pain, dysuria, hematuria, arthralgias, rash, headache or focal neurologic deficits. In the ER he was noted to have severe hyperglycemia of 629 mg/dL with elevated beta-hydroxybutyrate of 10.9 mmol/L with a corresponding ABG that revealed pH 7.06/pCO2 15.5 mmHg/pO2 126 mmHg/HCO3 4.3 mmol/L with 97% saturation on RA; all present on admission consistent with DKA likely due to Medical Noncompliance with Insulin complicated by additional laboratory evidence of Hyperkalemia of 5.4 mmol/L and suspected mild ZAHIDA due to Dehydration with elevated serum creatinine of 1.46 mg/dL (up from his baseline of 1.10 mg/dL) present on admission along with Leukocytosis of 11.1 K present on admission suspected to bedue to acute stress response with no signs of infection at this time. He was then admitted to the ICU for ongoing care for a stay that is expected to extend beyond 2 midnights. [facility] Medical History Pyloric stenosis Type 1 diabetes Home Medications ?Medication ?Instructions ?Recorded ?Last Taken ?Type insulin lispro 100 unit/mL 1 sliding scale dose subcut 11/04/24 Unknown History subcutaneous pen Allergy/AdvReac Type Severity Reaction Status Date / Time No Known Allergies Allergy Verified 11/04/24 21:23 Family History no significant family his Social History Smoking Status: Heavy Smoker (>10/day) ROS ROS Narrative Review of Systems: Constitutional: Patient denies fever or chills. Eyes: Patient denies changes in vision or discharge from eyes. ENT: Patient denies runny nose, sore throat or ear pain. Resp: Patient denies shortness of breath or cough. CV: Patient denies chest pain, palpitations, heart racing or lower extremity edema. GI: Patient admits to diffuse generalized abdominal pain that is cramping in nature with nonbloody diarrhea and nausea with bilious emesis. : Patient admits to polyuria but he denies dysuria or hematuria. MSK: Patient denies arthralgias or myalgias. Skin: Patient denies rash, abscess, wounds or jaundice. Psych: Patient denies symptoms of uncontrolled depression or anxiety. Neuro: Patient denies headache, paresthesias or focal neurologic deficits. Hematology: Patient denies easy bleeding or easy bruisability. Endocrinology: Patient admits to polyuria and polydipsia but he denies polyphagia. 14 point ROS otherwise negative except for positives noted above in HPI. Vital Signs Vital Signs Vital Signs: 11/04/24 21:23 11/04/24 21:31 11/04/24 22:21 Temperature 97.1 F L Temperature Source Temporal Pulse Rate 114 H 119 H Respiratory Rate 24 H 22 H Respiratory Pattern Tachypnea Blood Pressure 151/99 H 123/67 H Blood Pressure Mean 116 85 Pulse Ox 100 100 Oxygen Delivery Method Room Air Room Air 11/04/24 22:37 Temperature 98.3 F Temperature Source Pulse Rate 121 H Respiratory Rate 26 H Respiratory Pattern Blood Pressure 142/76 H Blood Pressure Mean 98 Pulse Ox 100 Oxygen Delivery Method Weight Weight: 171 lb 15.369 oz Body Mass Index (BMI) 23.3 Physical Exam Const alert, oriented x3, no apparent distress and average body habitus Constitutional Narrative: Patient is acutely ill in appearance. General Appearance: cooperative HEENT normocephalic, head/scalp atraumatic and hearing grossly normal bilaterally HEENT Narrative: Mucous membranes dry. Eyes PERRL, EOMs intact bilaterally and conjunctivae normal Neck no lymphadenopathy and supple Resp normal respiratory effort, no retractions, no use of accessory muscles and clearto auscultation bilaterally Cardio regular rate and regular rhythm GI normal to inspection, nondistended, normoactive bowel sounds, soft to palpation,non-tender and non-distended Extremity normal to inspection, full ROM and no clubbing, cyanosis or edema Skin Skin Narrative: Patient has no evidence of rash, abscess, wounds or jaundice. Neuro oriented x3, CN's II-XII intact bilaterally, moves all extremities and no focal motor deficits Sensorium / Orientation: awake, alert, oriented to person, oriented to place andoriented to time Speech: speech normal Psych affect normal Results Medical Records Data Attestation: I reviewed the patient's medical records Lab / Micro Data Attestation: I reviewed the patient's lab results. 11/05/24 05:00 11/05/24 03:05 Labs: Laboratory Results - last 24 hr 11/04/24 21:32: POC Glucose > 500 H* 11/04/24 21:36: WBC 11.1 H, RBC 5.44, Hgb 16.3, Hct 49.6, MCV 91.2, MCH 30.0, MCHC 32.9, RDW Std Deviation 42.6, RDW Coeff of Willam 12.9, Plt Count 397, MPV 9.3, Immature Gran % (Auto) 0.600, Neut % (Auto) 78.4 H, Lymph % (Auto) 11.7 L, [place] % (Auto) 6.8, Eos % (Auto) 1.1, Baso % (Auto) 1.4 H, Absolute Neuts (auto) 8.7 H, Absolute Lymphs (auto) 1.29, Nucleated RBC % 0, Sodium 136, Potassium 5.4H, Chloride 93 L, Carbon Dioxide 6.6 L*, Anion Gap 37 H, BUN 18, Creatinine 1.46H, Estim Creat Clear Calc 81.94, Est GFR (MDRD) Non-Af 66, BUN/Creatinine Ratio 12.3, Glucose 629 H*, Calcium 9.7, b-Hydroxybutyric mmol/L 10.9 11/04/24 22:24: Urine Color Yellow, Urine Clarity Clear, Urine pH 5.0, Ur Specific [place] 1.020, Urine Protein 30 H, Urine Glucose (UA) 1000 H, Urine Ketones 150 A*, Urine Occult Blood 10 H, Urine Nitrite Negative, Urine BilirubinNegative, Urine Urobilinogen Normal, Ur Leukocyte Esterase Negative, Urine RBC 0SEEN, Urine WBC 0 SEEN, Ur Squamous Epith Cells 0 SEEN, Urine Bacteria 0 SEEN, Urine Mucus 0 SEEN ABG Data ABG results: ABG 11/04/24 22:05 Specimen Type ART Sample Site R Radial pH 7.06 L* Bicarbonate Actual 4.3 L Total CO2 < 5 Base Excess -26 L O2 Saturation 97 ABG pCO2 15.5 L* ABG pO2 126 H Anne Test Positive O2 Delivery Device Not entered Vent Mode Not entered Crit Call To/Read Back Yes Interpretation: RUN DATE: 11/05/24 [facility], DEPARTMENT OF LABORATORIES PAGE 1 RUN TIME: 05 Specimen Inquiry [address], [place], [place], [id number] PATIENT: EVERARDO ESCOBAR LOC: ICU U #: [id number] : 1995 AGE/SX: 29/M FACILITY: [facility] ROOM: ICU02 RE11/04/[address]: Dr. Izaiah Varela, D STATUS:ADM IN ED: 1 DIS: ~ SPEC #: [id number] ERMA: 11/05/24 STATUS: COMP REQ #: [id number] RECD: 11/05/[address]: Dr. Izaiah Varela, DO ENTERED: 11/05/[address]: Care Physician,No Primary ~ Test Result Flag Reference Range IBG Blood Gas Type ART SITE R Radial ANNE TEST Positive Mode Not entered O2 Delivery Dev Room Air FI02 21.0 Time Given 00:44:[address] cerda Read Back By Yes pH 7.16 *L 7.35-7.45 pCO2 12.4 *L 35-45 mmHg PO2 131 H 75-100 mmHG HCO3 4.4 L 22-26 mmol/L BE -24 L -2 to +2 mmol/L TOTAL CO2 < 5 mmol/L SO2 98 95-99 % UN DATE: 11/05/24 [facility], DEPARTMENT OF LABORATORIES PAGE 1 RUN TIME: 05 Specimen Inquiry [address], [place], [place], [id number] PATIENT: EVERARDO ESCOBAR LOC: ICU U #: [id number] : 1995 AGE/SX: 29/M FACILITY: [facility] ROOM: ICU02 RE11/04/[address]: Wendy Rene STATUS:ADM IN ED: 1 DIS: ~ SPEC #: [id number] ERMA: 11/05/24 STATUS: COMP REQ #: [id number] RECD: 11/05/[address]: Dr. Izaiah Varela DO ENTERED: 11/05/[address]: Care Physician,No Primary ~ Test Result Flag Reference Range VIBG Blood Gas Type CHET SITE Not entered O2 Delivery Dev Room Air VBG pH 7.32 7.32-7.42 VBG pCO2 30.9 L 41-51 mmHg VBG PO2 80 H 25-40 mmHg VBG HCO3 16 L 22-26 mmol/L VBG BE -10 L -1.0-3.5 mmol/L VBG SO2 95 H 50-70 % VBG TCO2 17 L 23-33 mmol/L Rhythm Strip Rhythm Strip: Sinus Tach Rate: 110 Ectopy: None Assessment & Plan Assessment/Plan (1) DKA (diabetic ketoacidosis): QUALIFIERS: Diabetes mellitus complication detail: without coma Diabetes mellitus type: type 1 Qualified Code(s): E10.10 - Type 1 diabetes mellitus with ketoacidosis without coma (2) Type 1 diabetes: QUALIFIERS: Diabetes mellitus complication status: with hyperglycemia Qualified Code(s): E10.65 - Type 1 diabetes mellitus with hyperglycemia (3) Nausea, vomiting and diarrhea: (4) Abdominal pain: QUALIFIERS: Abdominal location: generalized Qualified Code(s): R10.84 - Generalized abdominal pain (5) Hyperkalemia: (6) ZAHIDA (acute kidney injury): (7) Acute dehydration: (8) Leukocytosis: QUALIFIERS: Leukocytosis type: unspecified Qualified Code(s): D72.829 - Elevated white blood cell count, unspecified (9) Tobacco abuse: PLAN: Plan 1. Severe hyperglycemia of 629 mg/dL with elevated beta-hydroxybutyrate of 10.9mmol/L with a corresponding ABG that revealed pH 7.06/pCO2 15.5 mmHg/pO2 126 mmHg/ HCO3 4.3 mmol/L with 97% saturation on RA; all present on admission consistent with DKA causing Nausea, Vomiting and generalized, cramping AbdominalPain - Admit to ICU for treatment under the DKA protocol primarily consisting ofinsulin drip. Keep strict n.p.o. and start IV pantoprazole daily for GI prophylaxis. Give ondansetron IV as needed for nausea and vomiting. Give promethazine IM as needed for breakthrough nausea and vomiting. Give acetaminophen suppositories as needed for [id number] (level 1-5/10) pain or fever. Give morphine IV as needed for severe (level 6- 10/10) pain. 2. Medical Noncompliance with Insulin likely causing #1 in the setting of knownhistory of DM-1; uncontrolled with hyperglycemia for the past ~5 years with previous episodes of DKA - Check UDS. Finally, we will consult clinical dietitian sees patient on rounds in the a.m. for further recommendations regarding diabetic teaching with help appreciated in advance. 3. Hyperkalemia of 5.4 mmol/L complicating #1 & #2 - Aggressively volume resuscitate and recheck BMP every 4 hours as per DKA protocol. 4. Suspected mild ZAHIDA due to Dehydration with elevated serum creatinine of 1.46mg/dL (up from his baseline of 1.10 mg/dL) present on admission compounding #1 -#3 - Give copious IV fluid and recheck renal indices daily to evaluate for potential improvement. 5. Leukocytosis of 11.1 K present on admission suspected to be due to acute stress response triggered by #1 - #4 with no signs of infection at this time - We we will watch closely in case signs or symptoms of infection develop. 6. Chronic Diarrhea adding to the burden of disease outlined from #1 - #5 - Check stool studies to evaluate for potential infectious etiology. If testing is negative patient will be started on Imodium as needed. 7. Tobacco Abuse - Tobacco Cessation will be strongly encouraged with nicotine patch offered to control cravings. 8. History of admission here from July 26, 2024 to July 27, 2024 for treatment of DKA - Noted with recurrent pattern of illness resulting in similar admission. 9. History of pyloric stenosis - Noted. 10. DVT prophylaxis - Lovenox 40 mg sq daily plus SCDs. Total time: Approximately (but not less than) 75 minutes. Charges/Coding Visit Charges Inpatient E&M: 91675 Init Hosp L3 11/05/24 0658 <Electronically signed by Izaiah Varela DO> Cosigner Signature (if applicable): CC: Dr. Izaiah de Domo, DO; No Primary Care Physician~ Signed [facility] Work Phone: 1(337) 879-679303-16-2025 History and physical note [facility] Medical Records Department [address] [place] [address] H&P Exam - Hospitalist 11/04/24 7032 MR#: [id number] Acct: [id number] Name: EVERARDO ESCOBAR Rep #:[id number] : 1995 29 From: Izaiah Smith DO PCP: Care Physician,No Primary Status :ADM IN Location: ICU ICU02-1 HPI - General General Date of Admission: 11/04/24 Date of Service: 11/04/24 Chief Complaint: Severe Hyperglycemia, Nausea, Vomiting and Diarrhea. HPI Narrative EVERARDO ESCOBAR, is a 29 M with a past medical history of DM-1; uncontrolled for the past ~5 years with previous episodes of DKA, history of pyloric stenosis, chronic diarrhea, history of ZAHIDA, tobaccoabuse and history of admission here from July 26, 2024 to July 27, 2024 for treatment of DKA who presents to [facility] ER complaining of severe hyperglycemia, nausea, vomiting and diarrhea. Mr. Escobar reports his symptoms began several days prior to admission with blood sugars persistently elevated over the 500 mg/dL range. He also admits to nausea and vomiting with bilious emesis in the settingof his chronic nonbloody diarrhea. He states he currently has no primary care physician and believes he is in DKA again. He denies associated fever, chills, runny nose, sore throat, shortness of breath, cough, chest pain, dysuria, hematuria, arthralgias, rash, headache or focal neurologic deficits. In the ER he was noted to have severe hyperglycemia of 629 mg/dL with elevated beta-hydroxybutyrate of 10.9 mmol/L with a corresponding ABG that revealed pH 7.06/pCO2 15.5 mmHg/pO2 126 mmHg/HCO3 4.3 mmol/L with 97% saturation on RA; all present on admission consistent with DKA likely due to Medical Noncompliance with Insulin complicated by additional laboratory evidence of Hyperkalemia of 5.4 mmol/L and suspected mild ZAHIDA due to Dehydration with elevated serum creatinine of 1.46 mg/dL (up from his baseline of 1.10 mg/dL) present on admission along with Leukocytosis of 11.1 K present on admission suspected to bedue to acute stress response with no signs of infection atthis time. He was then admitted to the ICU for ongoing care for a stay that is expected to extend beyond 2 midnights. [facility] Medical History Pyloric stenosis Type 1 diabetes Home Medications ?Medication ?Instructions ?Recorded ?Last Taken ?Type insulin lispro 100 unit/mL 1 sliding scale dose subcut 11/04/24 Unknown History subcutaneous pen Allergy/AdvReac Type Severity Reaction Status Date / Time No Known Allergies Allergy Verified 11/04/24 21:23 Family History no significant family his Social History Smoking Status: Heavy Smoker (>10/day) ROS ROS Narrative Review of Systems: Constitutional: Patient denies fever or chills. Eyes: Patient denies changes in vision or discharge from eyes. ENT: Patient denies runny nose, sore throat or ear pain. Resp: Patient denies shortness of breath or cough. CV: Patient denies chest pain, palpitations, heart racing or lower extremity edema. GI: Patient admits to diffuse generalized abdominal pain that is cramping in nature with nonbloody diarrhea and nausea with bilious emesis. : Patient admits to polyuria but he denies dysuria or hematuria. MSK: Patient denies arthralgias or myalgias. Skin: Patient denies rash, abscess, wounds or jaundice. Psych: Patient denies symptoms of uncontrolled depression or anxiety. Neuro: Patient denies headache, paresthesias or focal neurologic deficits. Hematology: Patient denies easy bleeding or easy bruisability. Endocrinology: Patient admits to polyuria and polydipsia but he denies polyphagia. 14 point ROS otherwise negative except for positives noted above in HPI. Vital Signs Vital Signs Vital Signs: 11/04/24 21:23 11/04/24 21:31 11/04/24 22:21 Temperature 97.1 F L Temperature Source Temporal Pulse Rate 114 H 119 H Respiratory Rate 24 H 22 H Respiratory Pattern Tachypnea Blood Pressure 151/99 H 123/67 H Blood Pressure Mean 116 85 Pulse Ox 100 100 Oxygen Delivery Method Room Air Room Air 11/04/24 22:37 Temperature 98.3 F Temperature Source Pulse Rate 121 H Respiratory Rate 26 H Respiratory Pattern Blood Pressure 142/76 H Blood Pressure Mean 98 Pulse Ox 100 Oxygen Delivery Method Weight Weight: 171 lb 15.369 oz Body Mass Index (BMI) 23.3 Physical Exam Const alert, oriented x3, no apparent distress and average body habitus Constitutional Narrative: Patient is acutely ill in appearance. General Appearance: cooperative HEENT normocephalic, head/scalp atraumatic and hearing grossly normal bilaterally HEENT Narrative: Mucous membranes dry. Eyes PERRL, EOMs intact bilaterally and conjunctivae normal Neck no lymphadenopathy and supple Resp normal respiratory effort, no retractions, no use of accessory muscles and clearto auscultation bilaterally Cardio regular rate and regular rhythm GI normal to inspection, nondistended, normoactive bowel sounds, soft to palpation,non-tender and non-distended Extremity normal to inspection, full ROM and no clubbing, cyanosis or edema Skin Skin Narrative: Patient has no evidence of rash, abscess, wounds or jaundice. Neuro oriented x3, CN's II-XII intact bilaterally, moves all extremities and no focal motor deficits Sensorium / Orientation: awake, alert, oriented to person, oriented to place andoriented to time Speech: speech normal Psych affect normal Results Medical Records Data Attestation: I reviewed the patient's medical records Lab / Micro Data Attestation: I reviewed the patient's lab results. 11/05/24 05:00 11/05/24 03:05 Labs: Laboratory Results - last 24 hr 11/04/24 21:32: POC Glucose > 500 H* 11/04/24 21:36: WBC 11.1 H, RBC 5.44, Hgb 16.3, Hct 49.6, MCV 91.2, MCH 30.0, MCHC 32.9, RDW Std Deviation 42.6, RDW Coeff of Willam 12.9, Plt Count 397, MPV 9.3, Immature Gran % (Auto) 0.600, Neut % (Auto) 78.4 H, Lymph % (Auto) 11.7 L, [place] % (Auto) 6.8, Eos % (Auto) 1.1, Baso % (Auto) 1.4 H, Absolute Neuts (auto) 8.7 H, Absolute Lymphs (auto) 1.29, Nucleated RBC % 0, Sodium 136, Potassium 5.4H, Chloride 93 L, Carbon Dioxide 6.6 L*, Anion Gap 37 H, BUN 18, Creatinine 1.46H, Estim Creat Clear Calc 81.94, Est GFR (MDRD) Non-Af 66, BUN/Creatinine Ratio 12.3, Glucose 629 H*, Calcium 9.7, b-Hydroxybutyric mmol/L 10.9 11/04/24 22:24: Urine Color Yellow, Urine Clarity Clear, Urine pH 5.0, Ur Specific [place] 1.020, Urine Protein 30 H, Urine Glucose (UA) 1000 H, Urine Ketones 150 A*, Urine Occult Blood 10 H, Urine Nitrite Negative, Urine BilirubinNegative, Urine Urobilinogen Normal, Ur Leukocyte Esterase Negative, Urine RBC 0SEEN, Urine WBC 0 SEEN, Ur Squamous Epith Cells 0 SEEN, Urine Bacteria 0 SEEN, Urine Mucus 0 SEEN ABG Data ABG results: ABG 11/04/24 22:05 Specimen Type ART Sample Site R Radial pH 7.06 L* Bicarbonate Actual 4.3 L Total CO2 < 5 Base Excess -26 L O2 Saturation 97 ABG pCO2 15.5 L* ABG pO2 126 H Anne Test Positive O2 Delivery Device Not entered Vent Mode Not entered Crit Call To/Read Back Yes Interpretation: RUN DATE: 11/05/24 [facility], DEPARTMENT OF LABORATORIES PAGE 1 RUN TIME: 512 Specimen Inquiry [address] [place], [address] PATIENT: EVERARDO ESCOBAR LOC: ICU U #: [id number] : 1995 AGE/SX: 29/M FACILITY: [facility] ROOM: ICU02 RE11/04/[address]: Wendy Rene STATUS:ADM IN ED: 1 DIS: ~ SPEC #: [id number] ERMA: 11/05/24 STATUS: COMP REQ #: [id number] RECD: 11/05/[address]: Dr. Izaiah Varela, DO ENTERED: 11/05/[address]: Care Physician,No Primary ~ Test Result Flag Reference Range IBG Blood Gas Type ART SITE R Radial ANNE TEST Positive Mode Not entered O2 Delivery Dev Room Air FI02 21.0 Time Given 00:44:[address] cerda Read Back By Yes pH 7.16 *L 7.35-7.45 pCO2 12.4 *L 35-45 mmHg PO2 131 H 75-100 mmHG HCO3 4.4 L 22-26 mmol/L BE -24 L -2 to +2 mmol/L TOTAL CO2 < 5 mmol/L SO2 98 95-99 % UN DATE: 11/05/24 [facility], DEPARTMENT OF LABORATORIES PAGE 1 RUN TIME: 529 Specimen Inquiry [address], [place], [place], [id number] PATIENT: EVERARDO ESCOBAR LOC: ICU U #: [id number] : 1995 AGE/SX: 29/M FACILITY: [facility] ROOM: ICU02 RE11/04/[address]: Wendy Rene STATUS:ADM IN ED: 1 DIS: ~ SPEC #: [id number] ERMA: 11/05/24 STATUS: COMP REQ #: [id number] RECD: 11/05/[address]: Dr. Izaiah Varela DO ENTERED: 11/05/[address]: Care Physician,No Primary ~ Test Result Flag Reference Range VIBG Blood Gas Type CHET SITE Not entered O2 Delivery Dev Room Air VBG pH 7.32 7.32-7.42 VBG pCO2 30.9 L 41-51 mmHg VBG PO2 80 H 25-40 mmHg VBG HCO3 16 L 22-26 mmol/L VBG BE -10 L -1.0-3.5 mmol/L VBG SO2 95 H 50-70 % VBG TCO2 17 L 23-33 mmol/L Rhythm Strip Rhythm Strip: Sinus Tach Rate: 110 Ectopy: None Assessment & Plan Assessment/Plan (1) DKA (diabetic ketoacidosis): QUALIFIERS: Diabetes mellitus complication detail: without coma Diabetes mellitus type: type 1 Qualified Code(s): E10.10 - Type 1 diabetes mellitus with ketoacidosis without coma (2) Type 1 diabetes: QUALIFIERS: Diabetes mellitus complication status: with hyperglycemia Qualified Code(s): E10.65 - Type 1 diabetes mellitus with hyperglycemia (3) Nausea, vomiting and diarrhea: (4) Abdominal pain: QUALIFIERS: Abdominal location: generalized Qualified Code(s): R10.84 - Generalized abdominal pain (5) Hyperkalemia: (6) ZAHIDA (acute kidney injury): (7) Acute dehydration: (8) Leukocytosis: QUALIFIERS: Leukocytosis type: unspecified Qualified Code(s): D72.829 - Elevated white blood cell count, unspecified (9) Tobacco abuse: PLAN: Plan 1. Severe hyperglycemia of 629 mg/dL with elevated beta-hydroxybutyrate of 10.9mmol/L with a corresponding ABG that revealed pH 7.06/pCO2 15.5 mmHg/pO2 126 mmHg/ HCO3 4.3 mmol/L with 97% saturation on RA; all present on admission consistent with DKA causing Nausea, Vomiting and generalized, cramping AbdominalPain - Admit to ICU for treatment under the DKA protocol primarily consisting ofinsulin drip. Keep strict n.p.o. and start IV pantoprazole daily for GI prophylaxis. Give ondansetron IV as needed for nausea and vomiting. Give promethazine IM as needed for breakthrough nausea and vomiting. Give acetaminophen suppositories as needed for [id number] (level 1-5/10) pain or fever. Give morphine IV as needed for severe (level 6-10/10) pain. 2. Medical Noncompliance with Insulin likely causing #1 in the setting of knownhistory of DM-1; uncontrolled with hyperglycemia for the past ~5 years with previous episodes of DKA - Check UDS. Finally, we will consult clinical dietitian sees patient on rounds in the a.m. for further recommendations regarding diabetic teaching with help appreciated in advance. 3. Hyperkalemia of 5.4 mmol/L complicating #1 & #2 - Aggressively volume resuscitate and recheck BMP every 4 hours as per DKA protocol. 4. Suspected mild ZAHIDA due to Dehydration with elevated serum creatinine of 1.46mg/dL (up from his baseline of 1.10 mg/dL) present on admission compounding #1 -#3 - Give copious IV fluid and recheck renal indices daily to evaluate for potential improvement. 5. Leukocytosis of 11.1 K present on admission suspected to be due to acute stress response triggered by #1 - #4 with no signs of infection at this time - We we will watch closely in case signs or symptoms of infection develop. 6. Chronic Diarrhea adding to the burden of disease outlined from #1 - #5 - Check stool studies to evaluate for potential infectious etiology. If testing is negative patient will be started on Imodium as needed. 7. Tobacco Abuse - Tobacco Cessation will be strongly encouraged with nicotine patch offered to control cravings. 8. History of admission here from July 26, 2024 to July 27, 2024 for treatment of DKA - Notedwith recurrent pattern of illness resulting in similar admission. 9. History of pyloric stenosis - Noted. 10. DVT prophylaxis - Lovenox 40 mg sq daily plus SCDs. Total time: Approximately (but not less than) 75 minutes. Charges/Coding Visit Charges Inpatient E&M: 85853 Init Hosp L3 11/05/24 0658 Cosigner Signature (if applicable): CC: Dr. Izaiah Varela, DO; No Primary Care Physician~ Signed [facility]03-16-2025 Discharge summary Author Julián Veliz [facility] Note Date/Time November 04, 2024 10: 44pm [facility] Medical Records Department [address] [place] [address] Emergency Department Summary 11/04/24 MR#: [id number] Acct: [id number] Name: EVERARDO ESCOBAR Rep #:[id number] : 1995 29 From: Julián Veliz MD PCP: Care Physician,No Primary Status :ADM IN Location: ICU ICU02-1 HPI History of Present Illness Chief Complaint: Hyperglycemia Informant: parent and spouse/S.O. Onset/Context/Timing Onset: Days Context: Gradual Onset Timing: Continuous Current Severity: Moderate Maximum Severity: Moderate Narrative Narrative: 29-year-old male history of insulin-dependent diabetes the last 5 years. Currently has no primary care physician. Said the last several days his blood sugars have been elevated over 500 and he is had nausea vomiting and chronic diarrhea. Believes he is in DKA again. Denies any fever. No dysuria. Prior similar symptoms: Yes Recent Illness/Hospitalization: No PFSH PFSH Medical History Pyloric stenosis Type 1 diabetes Home Medications ?Medication ?Instructions ?Recorded ?Last Taken ?Type insulin lispro 100 unit/mL 1 sliding scale dose subcut 11/04/24 Unknown History subcutaneous pen Allergy/AdvReac Type Severity Reaction Status Date / Time No Known Allergies Allergy Verified 11/04/24 21:23 Family History no significant family his Social History Smoking Status: Current every day smoker tobacco type: cigarettes ROS ROS ED ROS Narrative Nausea, vomiting and diarrhea. Constitutional Constitutional ED: Denies chills or fever(s) ENT ENT ED: Denies ear pain Cardiovascular Cardiovascular: Denies chest pain Respiratory/Chest Respiratory/Chest: Denies cough or dyspnea Gastrointestinal Gastrointestinal: Reports diarrhea, nausea and vomiting; Denies constipation or melena Genitourinary Genitourinary ED: Denies dysuria or hematuria Musculoskeletal Musculoskeletal: Denies arthralgias or back pain Integumentary Denies abscess Neurologic Neurologic: Denies headache(s) Psychiatric Psychiatric: Denies anxiety or depression Endocrine Endocrinology: Denies cold intolerance Hematologic/Lymphatic Hematologic/Lymphatic: Reports none Allergic/Immunologic Allergic/Immunologic ED: Denies mouth swelling, tongue swelling or urticaria EXAM Physical Exam Narrative Exam Narrative: 28-year-old male lying in bed. Vital signs are stable he is tachycardic 114. Afebrile. Pulse ox 100%. Significant other at bedside. H EENT exam pupils round reactive light. No facial droop. Normal speech. Dry mucous membranes. Neck nontender no lymphadenopathy. Heart tachycardic 115 no murmur. Chest wallribs nontender. Lungs clear to auscultation bilaterally. Heart abdomen soft nondistended normal bowel sounds without peritoneal signs. No hernia or mass. No obstruction. Moving all 4 extremities. Nontender no edema. No rashes. Normal strength. Normal range of motion. Back nontender. Neurologically is awake and alert answering questions following commands. No focal motor deficits. Const Vital Signs: 11/04/24 21:23 11/04/24 21:31 11/04/24 22:21 Temperature 97.1 F L Temperature Source Temporal Pulse Rate 114 H 119 H Respiratory Rate 24 H 22 H Respiratory Pattern Tachypnea Blood Pressure 151/99 H 123/67 H Blood Pressure Mean 116 85 Pulse Ox 100 100 Oxygen Delivery Method Room Air Room Air Positive well nourished and well developed; Negative for obese, cachectic, contractures or unkempt General Appearance ED: well developed; Negative for unkempt, cachectic, contractures, cyanotic, diaphoretic, NAD or pallor Nutritional Appearance: Negative for cachectic or obese HEENT Reports dry mucous membranes Negative for trauma or tenderness Mouth ED: Yes dry mucous membranes Mouth: dry mucous membranes Eyes PERRL and EOMs intact bilaterally General Eye ED: Negative for pale conjunctiva or scleral icterus Neck no lymphadenopathy, supple and no JVD General: Negative for tenderness Chest Wall inspection of chest normal and palpation of chest normal Resp normal respiratory effort and clear to auscultation bilaterally Effort and Inspection: Negative for retractions Auscultation: Negative for rales, rhonchi, wheezes or diminished lung sounds Cardio regular rhythm, S1 normal heart sound, S2 normal heart sound and no murmurs; Negative for regular rate Rate: tachycardic GI normal to inspection, nondistended, normoactive bowel sounds, non-tender, non-distended and no masses Auscultation: normoactive bowel sounds Palpation: soft; Negative for tender, guarding, mass or rebound tenderness present Back/Spine no CVA tenderness General Back: Negative for CVA tenderness Cervical Spine: Negative for cervical spine tenderness Thoracic Spine / Upper Back: Negative for thoracic spinal tenderness or paraspinal muscle tenderness Lumbar Spine / Lower Back: Negative for lumbar spinal tenderness Extremity normal to inspection General Extremety ED: Negative for edema or tenderness General Extremity: Negative for edema Neuro oriented x3 and CN's II-XII intact bilaterally Sensorium / Orientation: alert; Negative for orientation impaired, lethargic or stuporous Psych Appearance: Negative for unkempt Attitude: No agitated Mood & Affect: Negative for depressed or tearful Skin no rashes or lesions noted and no wounds General Skin Exam: Negative for jaundice or pallor Lesions: No lesion noted Rashes: No rashes noted MDM MDM MDM Narrative Medical decision making narrative: 29-year-old male history of diabetes concern for diabetic ketoacidosis. Appropriate lab workup. Including an ABG. IV fluids x 2 L Zofran. Patient is being treated with 2 large-bore IVs. He has been ordered 3 L of normal saline. Zofran x 2 for his nausea. Morphine for his pain. He will be started on DKA protocol with an insulin drip. Awaiting his chemistry panel to get him admitted to the ICU. Patient is slowly improving at 10:30 PM. IV fluids are running along with the other medications. Patient is aware he will be admitted to the ICU. History & Record Review Discussion w/independent historian: Patient and Family Additional record(s) reviewed:: Prior inpatient record, Prior outpatient record,Prior ED visit and Prior labs Lab Data Attestation: I reviewed the patient's lab results. Lab results narrative: CBC shows white count 11.1. H&H is 16 and 49. Platelets 397. Initial blood sugar greater than 500. ABG: pH is 7.055, pCO2 of 15, pO2 126, bicarb of 4.3. O2 sat 97%. Beta hydroxy butyric is 10.9. Electrolytes show potassium 5.4. CO2 is 6.6. Anion gap 37. BUN is 18 creatinine 1.46. Glucose is 629. All consistent with DKA metabolic acidosis. Urinalysis shows no infection. Positive ketones consistent with DKA. And dehydration. Labs: Laboratory Results - last 24 hr 11/04/24 11/04/24 11/04/24 21:32 21:36 22:24 WBC 11.1 H RBC 5.44 Hgb 16.3 Hct 49.6 MCV 91.2 MCH 30.0 MCHC 32.9 RDW Std Deviation 42.6 RDW Coeff of Willam 12.9 Plt Count 397 MPV 9.3 Immature Gran % (Auto) 0.600 Neut % (Auto) 78.4 H Lymph % (Auto) 11.7 L [place] % (Auto) 6.8 Eos % (Auto) 1.1 Baso % (Auto) 1.4 H Absolute Neuts (auto) 8.7 H Absolute Lymphs (auto) 1.29 Nucleated RBC % 0 Sodium 136 Potassium 5.4 H Chloride 93 L Carbon Dioxide 6.6 L* Anion Gap 37 H BUN 18 Creatinine 1.46 H Estim Creat Clear Calc 81.94 Est GFR (MDRD) Non-Af 66 BUN/Creatinine Ratio 12.3 Glucose 629 H* Calcium 9.7 b-Hydroxybutyric mmol/L 10.9 Urine Color Yellow Urine Clarity Clear Urine pH 5.0 Ur Specific [place] 1.020 Urine Protein 30 H Urine Glucose (UA) 1000 H Urine Ketones 150 A* Urine Occult Blood 10 H Urine Nitrite Negative Urine Bilirubin Negative Urine Urobilinogen Normal Ur Leukocyte Esterase Negative Urine RBC 0 SEEN Urine WBC 0 SEEN Ur Squamous Epith Cells 0 SEEN Urine Bacteria 0 SEEN Urine Mucus 0 SEEN POC Glucose > 500 H* ABG Data ABG results: ABG 11/04/24 22:05 Specimen Type ART Sample Site R Radial pH 7.06 L* Bicarbonate Actual 4.3 L Total CO2 < 5 Base Excess -26 L O2 Saturation 97 ABG pCO2 15.5 L* ABG pO2 126 H Anne Test Positive O2 Delivery Device Not entered Vent Mode Not entered Crit Call To/Read Back Yes Rhythm Strip Rhythm Strip: Sinus Tach Rate: 110 Ectopy: None EKG Initial EKG: Attestation: I personally reviewed and interpreted this EKG as follows: Interpretation: Sinus Tachycardia Comments: Sinus tachycardia. Rate of 110. No acute signs of GA or ischemia. Critical Care Time Critical Care Time: Yes Critical care time (excluding procedures): 30-74 minutes, Including time spent:,Discussing w/Patient &/or Family/Medical Assistant Secretary, Discussing w/Consultants, ArrangingAdmission or Transfer, Performing Direct Patient Care at Bedside and - (36 minutes.) Discharge Plan Dx/Rx/DC Orders Clinical Impression: DKA (diabetic ketoacidosis), Acute dehydration, Nausea, vomiting and diarrhea, Metabolic acidosis Disposition Disposition: Acute Care Hospital [facility] What to do if you have Problems For any increased pain, shortness of breath, bleeding, nausea or vomiting, chestpain, or any unexpected problems, contact your Primary Care Provider. Call [facility] ([phone]) or report to the closest Emergency Room. Call 911 if necessary. 11/04/242243 <Electronically signed by Julián Veliz MD> Cosigner Signature (if applicable): CC: No Primary Care Physician ~ Signed [facility] Work Phone: [phone] Discharge summary [facility] Medical Records Department [address] [place] [address] Emergency Department Summary 11/04/24 MR#: [id number] Acct: [id number] Name: EVERARDO ESCOBAR Rep #:[id number] : 1995 29 From: Julián Veliz MD PCP: Care Physician,No Primary Status :ADM IN Location: ICU ICU02-1 HPI History of Present Illness Chief Complaint: Hyperglycemia Informant: parent and spouse/S.O. Onset/Context/Timing Onset: Days Context: Gradual Onset Timing: Continuous Current Severity: Moderate Maximum Severity: Moderate Narrative Narrative: 29-year-old male history of insulin-dependent diabetes the last 5 years. Currently has no primary care physician. Said the last several days his blood sugars have been elevated over 500 and he is hadnausea vomiting and chronic diarrhea. Believes he is in DKA again. Denies any fever. No dysuria. Prior similar symptoms: Yes Recent Illness/Hospitalization: No PFSH PFSH Medical History Pyloric stenosis Type 1 diabetes Home Medications ?Medication ?Instructions ?Recorded ?Last Taken ?Type insulin lispro 100 unit/mL 1 sliding scale dose subcut 11/04/24 Unknown History subcutaneous pen Allergy/AdvReac Type Severity Reaction Status Date / Time No Known Allergies Allergy Verified 11/04/24 21:23 Family History no significant family his Social History Smoking Status: Current every day smoker tobacco type: cigarettes ROS ROS ED ROS Narrative Nausea, vomiting and diarrhea. Constitutional Constitutional ED: Denies chills or fever(s) ENT ENT ED: Denies ear pain Cardiovascular Cardiovascular: Denies chest pain Respiratory/Chest Respiratory/Chest: Denies cough or dyspnea Gastrointestinal Gastrointestinal: Reports diarrhea, nausea and vomiting; Denies constipation or melena Genitourinary Genitourinary ED: Denies dysuria or hematuria Musculoskeletal Musculoskeletal: Denies arthralgias or back pain Integumentary Denies abscess Neurologic Neurologic: Denies headache(s) Psychiatric Psychiatric: Denies anxiety or depression Endocrine Endocrinology: Denies cold intolerance Hematologic/Lymphatic Hematologic/Lymphatic: Reports none Allergic/Immunologic Allergic/Immunologic ED: Denies mouth swelling, tongue swelling or urticaria EXAM Physical Exam Narrative Exam Narrative: 28-year-old male lying in bed. Vital signs are stable he is tachycardic 114. Afebrile. Pulse ox 100%. Significant other at bedside. H EENT exam pupils round reactive light. No facial droop. Normal speech. Dry mucous membranes. Neck nontender no lymphadenopathy. Heart tachycardic 115 no murmur. Chest wallribs nontender. Lungs clear to auscultation bilaterally. Heart abdomen soft nondistended normal bowel sounds without peritoneal signs. No hernia or mass. No obstruction. Moving all 4 extremities. Nontender no edema. No rashes. Normal strength. Normal range of motion. Back nontender. Neurologically is awake and alert answering questions following commands. No focal motor deficits. Const Vital Signs: 11/04/24 21:23 11/04/24 21:31 11/04/24 22:21 Temperature 97.1 F L Temperature Source Temporal Pulse Rate 114 H 119 H Respiratory Rate 24 H 22 H Respiratory Pattern Tachypnea Blood Pressure 151/99 H 123/67 H Blood Pressure Mean 116 85 Pulse Ox 100 100 Oxygen Delivery Method Room Air Room Air Positive well nourished and well developed; Negative for obese, cachectic, contractures or unkempt General Appearance ED: well developed; Negative for unkempt, cachectic, contractures, cyanotic, diaphoretic, NAD or pallor Nutritional Appearance: Negative for cachectic or obese HEENT Reports dry mucous membranes Negative for trauma or tenderness Mouth ED: Yes dry mucous membranes Mouth: dry mucous membranes Eyes PERRL and EOMs intact bilaterally General Eye ED: Negative for pale conjunctiva or scleral icterus Neck no lymphadenopathy, supple and no JVD General: Negative for tenderness Chest Wall inspection of chest normal and palpation of chest normal Resp normal respiratory effort and clear to auscultation bilaterally Effort and Inspection: Negative for retractions Auscultation: Negative for rales, rhonchi, wheezes or diminished lung sounds Cardio regular rhythm, S1 normal heart sound, S2 normal heart sound and no murmurs; Negative for regular rate Rate: tachycardic GI normal to inspection, nondistended, normoactive bowel sounds, non-tender, non- distended and no masses Auscultation: normoactive bowel sounds Palpation: soft; Negative for tender, guarding, mass or rebound tenderness present Back/Spine no CVA tenderness General Back: Negative for CVA tenderness Cervical Spine: Negative for cervical spine tenderness Thoracic Spine / Upper Back: Negative for thoracic spinal tenderness or paraspinal muscle tenderness Lumbar Spine / Lower Back: Negative for lumbar spinal tenderness Extremity normal to inspection General Extremety ED: Negative for edema or tenderness General Extremity: Negative for edema Neuro oriented x3 and CN's II-XII intact bilaterally Sensorium / Orientation: alert; Negative for orientation impaired, lethargic or stuporous Psych Appearance: Negative for unkempt Attitude: No agitated Mood & Affect: Negative for depressed or tearful Skin no rashes or lesions noted and no wounds General Skin Exam: Negative for jaundice or pallor Lesions: No lesion noted Rashes: No rashes noted MDM MDM MDM Narrative Medical decision making narrative: 29-year-old male history of diabetes concern for diabetic ketoacidosis. Appropriate lab workup. Including an ABG. IV fluids x 2 L Zofran. Patient is being treated with 2 large-bore IVs. He has been ordered 3 L of normal saline. Zofran x 2 for his nausea. Morphine for his pain. He will be started on DKA protocol with an insulin drip. Awaiting his chemistry panel to get him admitted to the ICU. Patient is slowly improving at 10:30 PM. IV fluids are running along with the other medications. Patient is aware he will be admitted to the ICU. History & Record Review Discussion w/independent historian: Patient and Family Additional record(s) reviewed:: Prior inpatient record, Prior outpatient record,Prior ED visit and Prior labs Lab Data Attestation: I reviewed the patient's lab results. Lab results narrative: CBC shows white count 11.1. H&H is 16 and 49. Platelets 397. Initial blood sugar greater than 500. ABG: pH is 7.055, pCO2 of 15, pO2 126, bicarb of 4.3. O2 sat 97%. Beta hydroxy butyric is 10.9. Electrolytes show potassium 5.4. CO2 is 6.6. Anion gap 37. BUN is 18 creatinine 1.46. Glucose is 629. All consistent with DKA metabolic acidosis. Urinalysis shows no infection. Positive ketones consistent with DKA. And dehydration. Labs: Laboratory Results - last 24 hr 11/04/24 11/04/24 11/04/24 21:32 21:36 22:24 WBC 11.1 H RBC 5.44 Hgb 16.3 Hct 49.6 MCV 91.2 MCH 30.0 MCHC 32.9 RDW Std Deviation 42.6 RDW Coeff of Willam 12.9 Plt Count 397 MPV 9.3 Immature Gran % (Auto) 0.600 Neut % (Auto) 78.4 H Lymph % (Auto) 11.7 L [place] % (Auto) 6.8 Eos % (Auto) 1.1 Baso % (Auto) 1.4 H Absolute Neuts (auto) 8.7 H Absolute Lymphs (auto) 1.29 Nucleated RBC % 0 Sodium 136 Potassium 5.4 H Chloride 93 L Carbon Dioxide 6.6 L* Anion Gap 37 H BUN 18 Creatinine 1.46 H Estim Creat Clear Calc 81.94 Est GFR (MDRD) Non-Af 66 BUN/Creatinine Ratio 12.3 Glucose 629 H* Calcium 9.7 b-Hydroxybutyric mmol/L 10.9 Urine Color Yellow Urine Clarity Clear Urine pH 5.0 Ur Specific [place] 1.020 Urine Protein 30 H Urine Glucose (UA) 1000 H Urine Ketones 150 A* Urine Occult Blood 10 H Urine Nitrite Negative Urine Bilirubin Negative Urine Urobilinogen Normal Ur Leukocyte Esterase Negative Urine RBC 0 SEEN Urine WBC 0 SEEN Ur Squamous Epith Cells 0 SEEN Urine Bacteria 0 SEEN Urine Mucus 0 SEEN POC Glucose > 500 H* ABG Data ABG results: ABG 11/04/24 22:05 Specimen Type ART Sample Site R Radial pH 7.06 L* Bicarbonate Actual 4.3 L Total CO2 < 5 Base Excess -26 L O2 Saturation 97 ABG pCO2 15.5 L* ABG pO2 126 H Anne Test Positive O2 Delivery Device Not entered Vent Mode Not entered Crit Call To/Read Back Yes Rhythm Strip Rhythm Strip: Sinus Tach Rate: 110 Ectopy: None EKG Initial EKG: Attestation: I personally reviewed and interpreted this EKG as follows: Interpretation: Sinus Tachycardia Comments: Sinus tachycardia. Rate of 110. No acute signs of GA or ischemia. Critical Care Time Critical Care Time: Yes Critical care time (excluding procedures): 30-74 minutes, Including time spent:,Discussing w/Patient &/or Family/Medical Assistant Secretary, Discussing w/Consultants, ArrangingAdmission or Transfer, Performing Direct Patient Care at Bedside and - (36 minutes.) Discharge Plan Dx/Rx/DC Orders Clinical Impression: DKA (diabetic ketoacidosis), Acute dehydration, Nausea, vomiting and diarrhea, Metabolic acidosis [facility]position [facility] What to do if you have Problems For any increased pain, shortness of breath, bleeding, nausea or vomiting, chestpain, or any unexpected problems, contact your Primary Care Provider. Call [facility] ([phone]) or report tothe closest Emergency Room. Call 911 if necessary. 11/04/24 [id number] Cosigner Signature (if applicable): CC: No Primary Care Physician ~ Signed [facility]03-15-2025 Discharge summary Author Julián Veliz [facility] Note Date/Time November 04, 2024 10: 44pm [facility] Medical Records Department [address] [place] [address] Emergency Department Summary 11/04/24 MR#: [id number] Acct: [id number] Name: EVERARDO ESCOBAR Rep #:[id number] : 1995 29 From: Julián Veliz MD PCP: Care Physician,No Primary Status :ADM IN Location: ICU ICU02-1 HPI History of Present Illness Chief Complaint: Hyperglycemia Informant: parent and spouse/S.O. Onset/Context/Timing Onset: Days Context: Gradual Onset Timing: Continuous Current Severity: Moderate Maximum Severity: Moderate Narrative Narrative: 29-year-old male history of insulin-dependent diabetes the last 5 years. Currently has no primary care physician. Said the last several days his blood sugars have been elevated over 500 and he is had nausea vomiting and chronic diarrhea. Believes he is in DKA again. Denies any fever. No dysuria. Prior similar symptoms: Yes Recent Illness/Hospitalization: No PFSH [facility] Medical History Pyloric stenosis Type 1 diabetes Home Medications ?Medication ?Instructions ?Recorded ?Last Taken ?Type insulin lispro 100 unit/mL 1 sliding scale dose subcut 11/04/24 Unknown History subcutaneous pen Allergy/AdvReac Type Severity Reaction Status Date / Time No Known Allergies Allergy Verified 11/04/24 21:23 Family History no significant family his Social History Smoking Status: Current every day smoker tobacco type: cigarettes ROS ROS ED ROS Narrative Nausea, vomiting and diarrhea. Constitutional Constitutional ED: Denies chills or fever(s) ENT ENT ED: Denies ear pain Cardiovascular Cardiovascular: Denies chest pain Respiratory/Chest Respiratory/Chest: Denies cough or dyspnea Gastrointestinal Gastrointestinal: Reports diarrhea, nausea and vomiting; Denies constipation or melena Genitourinary Genitourinary ED: Denies dysuria or hematuria Musculoskeletal Musculoskeletal: Denies arthralgias or back pain Integumentary Denies abscess Neurologic Neurologic: Denies headache(s) Psychiatric Psychiatric: Denies anxiety or depression Endocrine Endocrinology: Denies cold intolerance Hematologic/Lymphatic Hematologic/Lymphatic: Reports none Allergic/Immunologic Allergic/Immunologic ED: Denies mouth swelling, tongue swelling or urticaria EXAM Physical Exam Narrative Exam Narrative: 28-year-old male lying in bed. Vital signs are stable he is tachycardic 114. Afebrile. Pulse ox 100%. Significant other at bedside. H EENT exam pupils round reactive light. No facial droop. Normal speech. Dry mucous membranes. Neck nontender no lymphadenopathy. Heart tachycardic 115 no murmur. Chest wallribs nontender. Lungs clear to auscultation bilaterally. Heart abdomen soft nondistended normal bowel sounds without peritoneal signs. No hernia or mass. No obstruction. Moving all 4 extremities. Nontender no edema. No rashes. Normal strength. Normal range of motion. Back nontender. Neurologically is awake and alert answering questions following commands. No focal motor deficits. Const Vital Signs: 11/04/24 21:23 11/04/24 21:31 11/04/24 22:21 Temperature 97.1 F L Temperature Source Temporal Pulse Rate 114 H 119 H Respiratory Rate 24 H 22 H Respiratory Pattern Tachypnea Blood Pressure 151/99 H 123/67 H Blood Pressure Mean 116 85 Pulse Ox 100 100 Oxygen Delivery Method Room Air Room Air Positive well nourished and well developed; Negative for obese, cachectic, contractures or unkempt General Appearance ED: well developed; Negative for unkempt, cachectic, contractures, cyanotic, diaphoretic, NAD or pallor Nutritional Appearance: Negative for cachectic or obese HEENT Reports dry mucous membranes Negative for trauma or tenderness Mouth ED: Yes dry mucous membranes Mouth: dry mucous membranes Eyes PERRL and EOMs intact bilaterally General Eye ED: Negative for pale conjunctiva or scleral icterus Neck no lymphadenopathy, supple and no JVD General: Negative for tenderness Chest Wall inspection of chest normal and palpation of chest normal Resp normal respiratory effort and clear to auscultation bilaterally Effort and Inspection: Negative for retractions Auscultation: Negative for rales, rhonchi, wheezes or diminished lung sounds Cardio regular rhythm, S1 normal heart sound, S2 normal heart sound and no murmurs; Negative for regular rate Rate: tachycardic GI normal to inspection, nondistended, normoactive bowel sounds, non-tender, non-distended and no masses Auscultation: normoactive bowel sounds Palpation: soft; Negative for tender, guarding, mass or rebound tenderness present Back/Spine no CVA tenderness General Back: Negative for CVA tenderness Cervical Spine: Negative for cervical spine tenderness Thoracic Spine / Upper Back: Negative for thoracic spinal tenderness or paraspinal muscle tenderness Lumbar Spine / Lower Back: Negative for lumbar spinal tenderness Extremity normal to inspection General Extremety ED: Negative for edema or tenderness General Extremity: Negative for edema Neuro oriented x3 and CN's II-XII intact bilaterally Sensorium / Orientation: alert; Negative for orientation impaired, lethargic or stuporous Psych Appearance: Negative for unkempt Attitude: No agitated Mood & Affect: Negative for depressed or tearful Skin no rashes or lesions noted and no wounds General Skin Exam: Negative for jaundice or pallor Lesions: No lesion noted Rashes: No rashes noted MDM MDM MDM Narrative Medical decision making narrative: 29-year-old male history of diabetes concern for diabetic ketoacidosis. Appropriate lab workup. Including an ABG. IV fluids x 2 L Zofran. Patient is being treated with 2 large-bore IVs. He has been ordered 3 L of normal saline. Zofran x 2 for his nausea. Morphine for his pain. He will be started on DKA protocol with an insulin drip. Awaiting his chemistry panel to get him admitted to the ICU. Patient is slowly improving at 10:30 PM. IV fluids are running along with the other medications. Patient is aware he will be admitted to the ICU. History & Record Review Discussion w/independent historian: Patient and Family Additional record(s) reviewed:: Prior inpatient record, Prior outpatient record,Prior ED visit and Prior labs Lab Data Attestation: I reviewed the patient's lab results. Lab results narrative: CBC shows white count 11.1. H&H is 16 and 49. Platelets 397. Initial blood sugar greater than 500. ABG: pH is 7.055, pCO2 of 15, pO2 126, bicarb of 4.3. O2 sat 97%. Beta hydroxy butyric is 10.9. Electrolytes show potassium 5.4. CO2 is 6.6. Anion gap 37. BUN is 18 creatinine 1.46. Glucose is 629. All consistent with DKA metabolic acidosis. Urinalysis shows no infection. Positive ketones consistent with DKA. And dehydration. Labs: Laboratory Results - last 24 hr 11/04/24 11/04/24 11/04/24 21:32 21:36 22:24 WBC 11.1 H RBC 5.44 Hgb 16.3 Hct 49.6 MCV 91.2 MCH 30.0 MCHC 32.9 RDW Std Deviation 42.6 RDW Coeff of Willam 12.9 Plt Count 397 MPV 9.3 Immature Gran % (Auto) 0.600 Neut % (Auto) 78.4 H Lymph % (Auto) 11.7 L [place] % (Auto) 6.8 Eos % (Auto) 1.1 Baso % (Auto) 1.4 H Absolute Neuts (auto) 8.7 H Absolute Lymphs (auto) 1.29 Nucleated RBC % 0 Sodium 136 Potassium 5.4 H Chloride 93 L Carbon Dioxide 6.6 L* Anion Gap 37 H BUN 18 Creatinine 1.46 H Estim Creat Clear Calc 81.94 Est GFR (MDRD) Non-Af 66 BUN/Creatinine Ratio 12.3 Glucose 629 H* Calcium 9.7 b-Hydroxybutyric mmol/L 10.9 Urine Color Yellow Urine Clarity Clear Urine pH 5.0 Ur Specific [place] 1.020 Urine Protein 30 H Urine Glucose (UA) 1000 H Urine Ketones 150 A* Urine Occult Blood 10 H Urine Nitrite Negative Urine Bilirubin Negative Urine Urobilinogen Normal Ur Leukocyte Esterase Negative Urine RBC 0 SEEN Urine WBC 0 SEEN Ur Squamous Epith Cells 0 SEEN Urine Bacteria 0 SEEN Urine Mucus 0 SEEN POC Glucose > 500 H* ABG Data ABG results: ABG 11/04/24 22:05 Specimen Type ART Sample Site R Radial pH 7.06 L* Bicarbonate Actual 4.3 L Total CO2 < 5 Base Excess -26 L O2 Saturation 97 ABG pCO2 15.5 L* ABG pO2 126 H Anne Test Positive O2 Delivery Device Not entered Vent Mode Not entered Crit Call To/Read Back Yes Rhythm Strip Rhythm Strip: Sinus Tach Rate: 110 Ectopy: None EKG Initial EKG: Attestation: I personally reviewed and interpreted this EKG as follows: Interpretation: Sinus Tachycardia Comments: Sinus tachycardia. Rate of 110. No acute signs of GA or ischemia. Critical Care Time Critical Care Time: Yes Critical care time (excluding procedures): 30-74 minutes, Including time spent:,Discussing w/Patient &/or Family/Medical Assistant Secretary, Discussing w/Consultants, ArrangingAdmission or Transfer, Performing Direct Patient Care at Bedside and - (36 minutes.) Discharge Plan Dx/Rx/DC Orders Clinical Impression: DKA (diabetic ketoacidosis), Acute dehydration, Nausea, vomiting and diarrhea, Metabolic acidosis Disposition Disposition: Acute Care Hospital [facility] What to do if you have Problems For any increased pain, shortness of breath, bleeding, nausea or vomiting, chestpain, or any unexpected problems, contact your Primary Care Provider. Call [facility] ([phone]) or report to the closest Emergency Room. Call 911 if necessary. 11/04/242243 <Electronically signed by Julián Veliz MD> Cosigner Signature (if applicable): CC: No Primary Care Physician ~ Signed [facility] Work Phone: 1(913) 282-533612-05-2024 [facility]12-04-2024 Evaluation note* Diagnosis Onset Date Resolution Status Admit Date Abdominal pain acute July 262023 7:29am Acute dehydration acute Dece2023 7:29am ZAHIDA (acute kidney injury) acute July 26, 2024 7:29am DKA (diabetic ketoacidosis) acute July 26, 2024 7:29am Type 1 diabetes chronic July 26, 2024 7:29am Abdominal pain acute October 10:27pm Acute dehydration acute October 212024 10:27pm ZAHIDA (acute kidney injury) acute November 04, 2024 10:27pm DKA (diabetic ketoacidosis) acute November 04, 2024 10:27pm Leukocytosis acute November 04, 2024 10:27pm Metabolic acidosis acute November 04, 2024 10:27pm Nausea, vomiting and diarrhea acute November 04, 2024 10:27pm Tobacco abuse acute November 04, 2024 10:27pm Type 1 diabetes chronic October 10:27pm [facility] Work Phone: 1(479) 877-138912-04-2024 Evaluation note* Diagnosis Onset Date Resolution Status Admit Date Abdominal pain acute July 262023 7:29am Acute dehydration acute Decembe r 2023 7:29am ZAHIDA (acute kidney injury) acute July 26, 2024 7:29am DKA (diabetic ketoacidosis) acute July 26, 2024 7:29am Type 1 diabetes chronic July 26, 2024 7:29am Abdominal pain acute October 11:08pm Acute dehydration acute October 212024 11:08pm ZAHIDA (acute kidney injury) acute November 04, 2024 11:08pm DKA (diabetic ketoacidosis) acute November 04, 2024 11:08pm Hyperkalemia acute November 04, 2024 11:08pm Leukocytosis acute November 04, 2024 11:08pm Metabolic acidosis acute November 04, 2024 11:08pm Nausea, vomiting and diarrhea acute November 04, 2024 11:08pm Tobacco abuse acute November 04, 2024 11:08pm Type 1 diabetes chronic October 11:08pm [facility] Work Phone: 1([phone]) 148-833509-27-2024 NoteT11 :This report has been cancelled. [facility]09-10-2024 NoteS DISCHARGE SUMMARY -- [facility] Everardo Escobar Admitted: 04/30/2024 Discharge Date: 05/02/2024 PCP Handoff Recommended Outpatient Testing Follow-up with endocrinology Results Pending At Discharge None Clinical Summary Everardo Escobar is a 28 y.o. male patient with history of type 1 diabetes presented to [facility] on 04/30/2024 with hyperglycemia and found to be in DKA. DKA: Precipitated by insurance changes and running out of insulin supplies. On admission bicarb 13, glucose 544, beta hydroxybutyrate 1.1. Improved with insulin drip and IV fluids Endocrine following and now transition to previous subcutaneous insulin regimen Discussed with endocrinology and okay to discharge from their perspective Continue basal bolus insulin regimen as below on discharge and follow-up with endocrinology in clinic. Acute kidney injury Likely prerenal in the setting of DKA, resolved with fluid resuscitation. Discharge Medications Discharge Medications New Medications Details NovoLOG Flexpen U-100 Insulin 100 unit/mL (3 mL) Inpn Generic drug: insulin aspart U-100 Replaces: insulin lispro 100 unit/mL Inpn Use as directed Three times a day plus sliding scale, approx 60 units total per day. Use insulin: CHO ratio of 1:10 for meals and snacks . Quantity: 30 mL Medications To Continue Details Basaglar KwikPen U-100 Insulin 100 unit/mL (3 mL) Inpn Generic drug: insulin glargine Inject 24 (twenty four) Units under the skin nightly . Quantity: 15 mL Stopped Medications insulin lispro 100 unit/mL injection Commonly known as: AdmeLOG,HumaLOG insulin lispro 100 unit/mL Inpn Commonly known as: HumaLOG KwikPen Insulin Replaced by: NovoLOG Flexpen U-100 Insulin 100 unit/mL (3 mL) Inpn Unreviewed Medications Details Dexcom G6 Sensor Fauzia Generic drug: blood-glucose sensor Change every 10 days . Quantity: 9 each Physician(s) Follow Up: Rigo William, INDUSTRIAL TECHNICIAN [address] [facility] [address] Go on 05/19/2024 Diabetes follow up No, Physician [facility] Condition at Discharge: Good Disposition: Home I reviewed discharge recommendations with the patient in person. Patient instructions, including activity, were given to the patient/family at discharge. On day of discharge I saw Everardo Escobar and spent: > 30 minutes on discharge. Completed by: Camryn Mena MD on 05/03/24, 7:02 AM AUTHENTICATED BY CAMRYN MENA, ON 05/03/2024 07:06:[address] [place] [address] 05-02-2024 NotePatient ID: Patient Name: Everardo Escobar Admit Date: 04/30/2024 MR #: [id number] : 1995 Current location: [facility] Physicians: Nelsy, Physician (Family); Dr. Ta (Referring) Reason for consult: Type 1 diabetes out of control Assessment/Plan: Dx: Type 1 diabetes, under inadequate control Currently taking as outpatient: Uses Humalog 1:10 ins:CHO Humalog insulin: 10 units at breakfast; 10 units at lunch; 10 units at supper Lantus insulin: 24 units at bedtime Sliding scale: Use as directed with Humalog insulin before meals and at bedtime. 151-200: 2 units fast acting insulin 201-250: 4 units fast acting insulin 251-300: 6 units fast acting insulin 301-350: 8 units fast acting insulin 351-400: 10 units fast acting insulin above 400: 12 units fast acting insulin Current Hemoglobin A1C= 10.6% Lab Results Component Value Date HGBA1C 10.6 (H) 04/30/2024 HGBA1C 10.4 (A) 02/10/2024 HGBA1C 9.2 (H) 08/28/2023 NOTES: 05/01: BG and labs reviewed. BG ranging from 96-479 over the last 24 hours. Sodium 140, potassium 3.6, chloride 106, bicarb 21, anion gap 17, BUN 16, creatinine 0.87, EGFR 121, magnesium 2.0, phosphorus 2.9, beta hydroxybutyrate 0.3. Patient currently on insulin drip, no complaints of nausea, vomiting. He reports he ran out of insulin 1-2 weeks ago as he is currently between jobs and does not have health insurance. He was told by his current employer that his insurance was back dated however, he has not yet received an insurance card or any information on this. Consult to social service liaison placed to evaluate insurance status to have patient obtain insulin from meds to beds prior to discharge. 05/02: BG and labs reviewed. He was taken off the drip last evening. He received 24u lantus. Patient was ordered mod. Sensitivity sliding scale coverage at meals. He is typically doing a 1:10 CHO ratio for meal time dosing of insulin. He is feeling well. Lien PO well and hoping to be discharged today. Blood Glucoses: 04/30: XXX---XXX---479---202 insulin drip 05/01: 192---270---103---86/153 05/02: 187---203 Plan: 1. Rx changes: 05/01: Continue insulin drip 05/02: switch to 1:10 CHO ratio at meals, continue 24u Lantus nightly. 2. Education: Reviewed 'ABCs' of diabetes management (respective goals in parentheses): A1C (7.0-8.0), blood pressure (<130/80), and cholesterol (LDL <100). Referral to Diabetes Education Referral to Nutrition therapy Subjective: Brief HPI: Everardo Escobar is a 28 y.o. male with a past medical history of type 1 diabetes and DVT who presented to [facility] emergency room with complaints of hyperglycemia, nausea, vomiting, shortness of breath, chest pain, and generalized mild abdominal pain. He reported he ran out of Lantus about 1 week ago. He follows with [facility] endocrinology and last saw PARISH Wiseman on 02/09. Patient has had diabetes for 5 years. Diagnosed in 2019. Patient is currently taking Humalog insulin: 1: 10 units at breakfast; 1: 10 units at lunch; 1: 10 units at supper Lantus insulin: 24 units at bedtime. Patient has taken Insulin for 5 years. Currently the patient is receiving insulin drip. Blood sugar levels since admission have been ranging from 96-470s mg/dL. Current monitoring regimen: home blood tests - CGM Complications of diabetes include: Retinopathy: Negative Nephropathy: Negative Peripheral Neuropathy: Negative Autonomic Neuropathy: Negative Allergies: No Known Allergies Home Medications: Outpatient Medications Marked as Taking for the 04/30/24 encounter (Hospital Encounter): insulin glargine (Lantus Solostar U-100 Insulin) 100 unit/mL (3 mL) InPn, Inject 24 (twenty four) Units under the skin nightly . insulin lispro (AdmeLOG,HumaLOG) 100 unit/mL injection, Sliding scale BS 100-150 = 1 unit, 151-200 = 2 units, 201-250 = 3 units. 251-300 = 4 units, 301-350 = 5 units, 351-400 = 6 units with meals. . insulin lispro (HumaLOG KwikPen Insulin) 100 unit/mL InPn, Use as directed TID plus sliding scale, approx 50 units total per day. Use insulin: CHO ratio of 1:8 for meals and snacks . Current Medications: heparin (porcine) 5,000 Units Subcutaneous Q8H KESHA insulin glargine 24 Units Subcutaneous Nightly lispro insulin 0-15 Units Subcutaneous at bedtime insulin lispro 0-30 Units Subcutaneous TID AC senna-docusate 1 tablet Oral BID sodium chloride (PF) 5 mL Intravenous Q8H KESHA acetaminophen, nalOXone AND Notify physician AND naloxone, ondansetron OR ondansetron, Saline lock IV AND sodium chloride (PF) AND sodium chloride (PF) AND sodium chloride 0.9 % Review of Systems: Review of Systems Constitutional: Negative for fatigue and unexpected weight change. HENT: Negative for trouble swallowing and voice change. Respiratory: Negative for shortness of breath. Cardiovascular: Negative for chest pain, palpitations and leg swelling. Gastrointestinal: Negative (more content not included)...[facility] 05-01-2024 NoteS PROGRESS NOTE Assessment and Plan Everardo Escobar is a 28 y.o. 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 Hyperglycemia with DKA Pseudohyponatremia 2/2 hyperglycemia DKA protocol initiated Insulin drip Endocrinology consulted-recs appreciated senior relationship manager consulted- to ensure insulin obtained on discharge Hyperkalemia - resolved Acute kidney injury Resolved with IVF Resolved acute medical issues Discharge Planning Medically Stable for Discharge Date: 05/02 Patient requires continued hospitalization due to: DKA Discharge Location: home Quality Measures DVT Prophylaxis: lovenox Cent[place] Catheter: absent Code Status FULL Primary Contact Information Subjective Patient lying in bed in no distress Objective BP 119/79 Pulse 72 Temp 97.8 degrees F (36.6 degrees C) (Oral) Resp 13 Ht 6' Wt 90.7 kg (200 lb) SpO2 99% BMI 27.12 kg/m Physical Examination General Appearance: alert; acutely ill appearing; in no acute distress HEENT: Head- normocephalic; Eyes- EOMI, sclera anicteric; Throat- mucous membranes moist Cardiovascular: regular rate and rhythm; normal S1, S2; no murmurs, rubs, clicks or gallops; peripheral edema absent Respiratory: lungs clear to auscultation; without wheezes, rales or rhonchi; on room air Abdomen: soft, non-tender, non-distended Neurological: oriented x 3; normal speech; no focal findings or movement disorder noted Musculoskeletal: no significant deformity or tenderness to palpation Skin: normal coloration Psych: normal mood and affect AUTHENTICATED BY VENUS ESCOBEDO, ON 05/01/2024 14:20:47[facility] 04-30-2024 NoteS HISTORY AND PHYSICAL -- [facility] Patient Name: Everardo Escobar : 1995 MR #: [id number] Admit Date: 04/30/2024 Physicians: No, Physician (Family); No ref. provider found (Referring) Everardo Escobar is a 28 y.o. male patient of Nelsy Physician with history of type 1 diabetes presented to [facility] on 04/30/2024 with hyperglycemia. Hyperglycemia with DKA Start DKA protocol Insulin drip Switch IV fluids to D5 half-normal once blood sugar less than 200 Monitor electrolyte Pain management Supportive care Hyponatremia likely hypovolemic Due to hyperglycemia Start IV fluids Monitor electrolyte Hyperkalemia Potassium 5.9 DKA protocol Acute kidney injury Creatinine 1.41, baseline 1.14 in August/2023 Start IV fluids Random urine electrolyte Residence prior to admission: house or apartment Was patient transferred from outlying hospital or ED no Quality Measures DVT Prophylaxis: heparin subcutaneous Centeno Catheter: absent Medication Reconciliation: Verified Admitted with these risk variables:Acute Kidney Injury. Please see assessment and plan for further details. Estimated Date of Discharge less than 2 midnights Code Status Full Code; code status verified on 04/30/2024 with patient (capacity intact) Chief Complaint hyperglycemia History of Present Illness 28-year-old male with past medical history of type I, he is on basal bolus, Lantus on average 25 units according to his girlfriend, Humalog insulin carb ratio 1:8, he is ran out of his Lantus since yesterday, came with hyperglycemia blood sugars 544 with high anion gap 35, and low bicarb 13, with mild acute kidney injury, he is sleepy drowsy, does not want to speak, history got from girlfriend at bedside, started insulin drip in ER. 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 Diabetes mellitus (HCC) 2019 Pyloric stenosis Past Surgical History Past Surgical History: Procedure Laterality Date CYST REMOVAL Family History Family History Problem Relation Age of Onset Hypertension Mother Hyperthyroidism Father No Known Problems Sister No Known Problems Brother Social History Social History Tobacco Use Smoking Status Former Current packs/day: 0.30 Types: Cigarettes Smokeless Tobacco Former Types: Chew Social History Substance and Sexual Activity Alcohol Use Not Currently Comment: Social Social History Substance and Sexual Activity Drug Use Never Allergy Information I have reviewed the patient's allergies. Patient has no known allergies. Home Medications Home medications were reviewed. Review Of Systems All relevant systems have been reviewed and are negative except as noted in HPI or below Physical Examination BP 118/62 Pulse (!) 104 Temp 97.5 degrees F (36.4 degrees C) (Oral) Resp 18 Ht 6' Wt 90.7 kg (200 lb) SpO2 100% BMI 27.12 kg/m General Appearance: somnolent; acutely ill appearing; in moderate acute distress HEENT: Head- normocephalic; Eyes- EOMI, sclera anicteric; Throat- mucous membranes moist Cardiovascular: regular rate and rhythm; peripheral edema absent Respiratory: lungs clear to auscultation; without wheezes, rales or rhonchi; on room air Abdomen: soft, non-tender, non-distended Neurological: oriented x 3; normal speech; no focal findings or movement disorder noted Musculoskeletal: no significant deformity or tenderness to palpation Skin: normal coloration Psych: normal mood and affect AUTHENTICATED BY SAWYER TA, ON 04/30/2024 18:24:[address] [place] [address] 02-10-2024 Instructions* Patient Instructions* Rigo William, [facility] - 02/10/2024 3:59 PM EDT Humalog 1:10 insulin to carb ratio Humalog insulin:11-12 units at breakfast; 11-12 units at lunch; 13-14 units at supper Lantus insulin: 24 units at bedtime Sliding scale: Use as directed with Humalog insulin before meals and at bedtime. 151-200: 2 units fast acting insulin 201-250: 4 units fast acting insulin 251-300: 6 units fast acting insulin 301-350: 8 units fast acting insulin 351-400: 10 units fast acting insulin above 400: 12 units fast acting insulin Call the office with Blood sugar readings in 1 week for dose adjustments to your insulin, if needed. The goal hemoglobin A1C is 7%-8%, closer to 7%, which is an average BG of 150 Please call the office sooner for episodes of hypoglycemia, BG < 70. Please remember to check your blood sugar 4x per day. Bring your blood sugar meter with you to appointments for review/download. It is important for us to prove you are checking your blood sugar, in order for us to renew/prescribe testing supplies. *Get updated labs done prior to your follow up appointment with us. If you do not get updated labs done, that are requested, please consider rescheduling your appointment until those are done * Resume use of Dexcom CGM Schedule training with Halima Voss RN, BSN. documented in this [id number] History of Present illness Narrative* Rigo William CNP - 02/10/2024 3:30 PM EDT Images from the original note were not included. Patient ID: Everardo Escobar is a 28 y.o. male 1995 Subjective: Everardo Escobar presents for follow up of Type 1 diabetes Patient was diagnosed with T1DM in 07/2019. He was last seen in our office 12/2022. He did not have lab work completed prior to his follow-up. Hemoglobin A1c in office 10.4% today 02/10/2024. Patient with no complaints at this time. He has been prescribed Dexcom CGM however he is currently not wearing it due to inaccuracy per patient report. Current Outpatient Medications Medication Sig Dispense Refill insulin glargine (Lantus Solostar U-100 Insulin) 100 unit/mL (3 mL) InPn Inject 24 (twenty four) Units under the skin nightly . 7.8 mL 0 insulin lispro (AdmeLOG,HumaLOG) 100 unit/mL injection Sliding scale BS 100-150 = 1 unit, 151-200 =2 units, 201-250 = 3 units. 251-300 = 4 units, 301-350 = 5 units, 351-400 = 6 units with meals. . insulin lispro (HumaLOG KwikPen Insulin) 100 unit/mL InPn Use as directed TID plus sliding scale, approx 50 units total per day. Use insulin: CHO ratio of 1:8 for meals and snacks . 30 mL 0 blood-glucose sensor (Dexcom G6 Sensor) Fauzia Change every 10 days . (Patient not taking: Reported on 02/10/2024 .) 9 each 4 No current facility-administered medications for this visit. Review of Systems: Review of Systems Constitutional: Negative for activity change, appetite change, fatigue and unexpected weight change. Eyes: Negative for visual disturbance. Respiratory: Negative for chest tightness and shortness of breath. Cardiovascular: Negative for chest pain, palpitations and leg swelling. Gastrointestinal: Negative for abdominal pain, constipation, diarrhea, nausea and vomiting. Endocrine: Negative for polydipsia, polyphagia and polyuria. Genitourinary: Negative for difficulty urinating and frequency. Musculoskeletal: Negative for arthralgias and myalgias. Skin: Negative for rash and wound. Neurological: Negative for dizziness, weakness and numbness. Psychiatric/Behavioral: Negative for sleep disturbance. The patient is not nervous/anxious. The following portions of the patient's history were reviewed and updated as appropriate: allergies, current medications, past family history, past medical history, past social history, past surgicalhistory and problem list. Objective: BP (!) 156/101 Pulse (!) 109 Wt 87.5 kg (193 lb) BMI 26.18 kg/m Wt Readings from Last 3 Encounters: 02/10/24 87.5 kg (193 lb) 08/28/23 95.3 kg (210 lb) 08/04/23 97.5 kg (215 lb) Physical Exam: Physical Exam General: alert, appears stated age and cooperative Eyes: conjunctivae/corneas clear. PERRL, EOM's intact. Neck: no adenopathy, supple, symmetrical, trachea midline. Thyroid: No thyromegaly appreciated Lung: clear to auscultation bilaterally Heart: regular rate and rhythm, S1, S2 normal, no murmur, click, rub or gallop Extremities: extremities normal, atraumatic, no cyanosis or edema Feet: Dry skin, Right Foot: warm, good capillary refill, normal DP and normal sensory exam Left Foot: warm, good capillary refill, normal DP and normal sensory exam. Monofilament exam not assessed, bilateral lower extremities. Neuro: normal without focal findings, mental status, speech normal, alert and oriented x3 and CECY Lab Review Date: 02/10/2024 Hemoglobin A1c 10.4% in office today 08/29/2023 Creatinine 1.19, eGFR 85 08/28/2023 Hemoglobin A1c 9.2% 12/19/22 HgbA1c 7.2% Na 142, K 3.8, creat 0.83, eGFR 123 AST 16, ALT 28 TSH 0.69, FT4--1.0 08/29/2022 Hemoglobin A1C 8.4% Creatinine 1.08 GFR 96 AST 17 ALT 24 TSH 1.00 FT4 1.1 Microalbumin Creatinine ratio 11 Cholesterol 147 Triglycerides 121 HL 52 LDL 71 02/28/2022 Hemoglobin A1c 7.8% Creatinine 0.9 GFR 108 AST 16 ALT 29 Cholesterol 167 triglycerides 66 HDL 59 LDL 95 TSH 0.49 Free T4 1.1 Microalbumin creatinine ratio 20 11/03/2021 Hemogloboin A1C 8.2% in office 08/02/2021 Hemoglobin A1c 7.8% Creatinine 1.01 GFR 102 AST 15 ALT 23 Microalbumin creatinine ratio 135 TSH 0.94 free T4 1.0 C-peptide 0.04 Cholesterol 159 triglycerides 35 HDL 67 LDL 85 WBC 4 hemoglobin 16 hematocrit 47 platelets 255 Assessment: Dx: 1. 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) POC Hemoglobin A1C Comprehensive Metabolic Panel Hemoglobin A1c TSH T4, Free Microalbumin/Creatinine Ratio, UR Random Lipid Panel Type 1 diabetes, under good control Currently managed with: Humalog insulin 10 units at breakfast,10 units at lunch, 10 units at dinner Uses ins:CHO ratio 1:10 at meals plus Sliding scale insulin: BG<150=0, 150- 200=+2 U, 201-250=+4 U, 251-300= +6 U, 301-350=+8 U, >350=+10 U Tresiba insulin 24 units at bedtime Current Hemoglobin A1C= Lab Results Component Value Date HGBA1C 10.4 (A) 02/10/2024 HGBA1C 9.2 (H) 08/28/2023 HGBA1C 7.2 (H) 12/19/2022 Home blood sugar records: See scanned readings, average BG 161 per meter. Any episodes of hypoglycemia? Frequent low BG during day at work NOTES: Patient has been having occasional low blood sugars at work. The patient has an OmniPod 5 insulin pump system at home. In view of his hypoglycemia and wide variation in blood glucose readings, I believe he would definitely benefit from using an insulin pump and a 6 Dexcom CGM. He does have the Dexcom system at home, but has not been using it due to when he uses it in the past being inaccurate. Advised to resume use and check accuracy. Plan: CPM He will attempt to meet with Halima Voss RN, pump sap trainer in order to get started on the OmniPod 5insulin pump system with the Dexcom CGM in order to help reduce his hypoglycemia episodes and stabilize his blood sugars. 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 He was encouraged to get yearly eye examinations Nephropathy: Negative Creatinine 0.83 GFR 123 12/19/2022 Microalb improved and now negative. Lab Results Component Value Date CREATININE 1.19 08/29/2023 Microlbumin/creat ratio: 11 08/29/2022 Is patient on CHING inhibitor or angiotensin II receptor michael? no Peripheral Neuropathy: Negative Denies symptoms associated with neuropathy (numbness and/or tingling) Autonomic Neuropathy: Negative Hypoglycemia unawareness. Senses low BG at 60mg/dl. Hyperlipidemia: Negative Currently taking: No lipid lowering agents. LFT's WNL Hypertension: Negative . Currently taking: Patient on no antihypertensives BP: (!) 156/101 --does not take anything, reports first time ever having elevation. Advised to obtain BP cuff and check at home and follow-up with PCP if elevation continues. Cardiac: Negative Experiencing chest pain No . Experiencing shortness of breath No History of No history of CAD Follows routinely with: Vascular: Positive History of DVT in arm after hit with softball - on short term Eliquis, since discontinued Feet: 02/10/2024 Follows with Podiatry: No International Recruiter: History of foot ulceration: No History of amputation: No Thyroid: Lab Results Component Value Date TSH 0.31 08/28/2023 Negative Other: Plan: 1. Type 1 diabetes Uses Humalog 1:10 ins:CHO Humalog insulin: 10 units at breakfast; 10 units at lunch; 10 units at supper Lantus insulin: 24 units at bedtime Sliding scale: Use as directed with Humalog insulin before meals and at bedtime. 151-200: 2 units fast acting insulin 201-250: 4 units fast acting insulin 251-300: 6 units fast acting insulin 301-350: 8 units fast acting insulin 351-400: 10 units fast acting insulin above 400: 12 units fast acting insulin No changes were made to his diabetic medication regimen today due to wide variation in blood glucose readings with no specific pattern in addition to patient reporting missing doses of insulin. At this time it would be best for him to become completely compliant with his current regimen and report BG readings to our office for review at that time to make appropriate adjustments to his insulin doses. He is to resume use of Dexcom CGM and Schedule training with Halima Voss, RN, BSN for OmniPod insulin pump training to initiate insulin pump therapy, preferably with Dexcom CGM. He is advised to call our office with any issues prior to his follow-up appointment. He was advised to have labs completed prior to follow-up appointment. We discussed the complications that could occur should her diabetes remain out of control which wasincluding but not limited to: Renal failure Coronary Artery disease Blindness Stroke or CVA 2. Education: Reviewed ABCs of diabetes management (respective goals in parentheses): A1C (7.0-8.0), blood pressure (<130/80), and cholesterol (LDL <100). 3. Compliance at present is estimated to be good. Efforts to improve compliance (if necessary) willbe directed at regular blood sugar monitorin times daily. 4. Follow up: 4 months 5. Record blood sugar readings as instructed. Call if BG consistently <70 or >250. [phone] 6. Bring blood sugar meter to follow up appointment. Orders Placed This Encounter Procedures Comprehensive Metabolic Panel Hemoglobin A1c TSH T4, Free Microalbumin/Creatinine Ratio, UR Random Lipid Panel POC Hemoglobin A1C Electronically signed by ARON Barrera 02/11/2024 documented in this [id number] Telephone encounter Note* Telephone Encounter - Eloy Diamond MA - 02/03/2024 2:41 PM EDT Previous order wasn't e-prescribed. Needs resent. [id number] Miscellaneous Notes* Telephone Encounter - Eloy Diamond MA - 02/03/2024 2:41 PM EDT Previous order wasn't e-prescribed. Needs resent. documented in this [id number] Telephone encounter Note* Telephone Encounter - Eloy Diamond MA - 02/03/2024 9:26 AM EDT Pt requests refill for insulin to get him to upcoming appt on the . [id number] Miscellaneous Notes* Telephone Encounter - Eloy Diamond MA - 02/03/2024 9:26 AM EDT Pt requests refill for insulin to get him to upcoming appt on the . documented in this [id number] Hospital course Narrative* Matthew Dawkins MD - 08/29/2023 1:17 PM EST Images from the original note were not included. DISCHARGE SUMMARY Patient: Everardo Escobar Date of : 1995 Site: [facility] Family Provider: Nelsy Physician Admit Date: 08/28/2023 Discharge Date/Time: 08/29/23 Morning Disposition: Home Clinical Summary Hospital Course: Everardo Escobar is a 28 y.o. male patient of Nelsy Physician with a history of diabetes Discharge Diagnoses: For Diabetes Management: Check blood glucose 4 times a day before meals and at bedtime. Record blood glucoses and report glucoses to Dr. Rojas's office at [phone] if blood glucoses are consistently running less than 80 or greater than 200. Call to schedule a follow up appointment to be seen in 2-4 weeks Please take 24 units of lantus and adjust your carb ratio to 1 to 8, previoulsy 1 to 10 Diabetic ketoacidosis Out of dka, Consulted endocrine, reccomendations as above for outpatient. Acute kidney injury resolved COVID-19 respiratory infection Overall appears to be stable oxygen saturation at room air, and chest x-ray showed no infiltrates, will check inflammatory markers and continue supportive measures Surgeries: None Consults: Procedures Hospitalize Patient To : Inpatient consult to Endocrinology Allergies: Patient has no known allergies. Discharge Diet: Resume home diet Condition: Fair Discharge Medications: Discharge Medications Modified Medications Details insulin glargine 100 unit/mL (3 mL) Inpn Commonly known as: Lantus Solostar U-100 Insulin What changed: how much to take Inject 24 (twenty four) Units under the skin nightly . Quantity: 7.8 mL * insulin lispro 100 unit/mL Inpn Commonly known as: HumaLOG KwikPen Insulin What changed: additional instructions Use as directed TID plus sliding scale, approx 50 units total per day. Use insulin: CHO ratio of 1:8 for meals and snacks . Quantity: 30 mL * insulin lispro 100 unit/mL injection Commonly known as: AdmeLOG,HumaLOG What changed: Another medication with the same name was changed. Make sure you understand how and when to take each. Sliding scale BS 100-150 = 1 unit, 151-200 = 2 units, 201-250 = 3 units. 251-300 = 4 units, 301-350= 5 units, 351-400 = 6 units with meals. . * There are duplicate medications prescribed to the patient Medications To Continue Details Dexcom G6 Sensor Fauzia Generic drug: blood-glucose sensor Change every 10 days . Quantity: 9 each Physician(s) Family Provider: No, Physician, Phone: None Address: [facility] Follow Up: Sita Rojas MD [address] [place] [id number] Follow up PLease call to schedule appointment to be seen in about 2-4 weeks. [phone] Additional Information: none Patient instructions, including activity, were given to the patient/family at discharge. Please seethe After Visit Summary in the electronic medical record for details. Time spent on discharge: > 30 minutes Completed by: Matthew Dawkins MD on 08/29/23, 1:17 PM documented in this [id number] Hospital Discharge instructions * Discharge Instr - AVS First Page* Matthew Dawkins MD - 08/29/2023 12:35 PM EST For Diabetes Management: Check blood glucose 4 times a day before meals and at bedtime. Record blood glucoses and report glucoses to Dr. Rojas's office at [phone] if blood glucoses are consistently running less than 80 or greater than 200. Call to schedule a follow up appointment to be seen in 2-4 weeks Please take 24 units of lantus and adjust your carb ratio to 1 to 8, previoulsy 1 to 10 documented in this [id number] Emergency department Note* Katlin Rico RN - 08/29/2023 8:37 AM EST Bed: 46 Expected date: Expected time: Means of arrival: Comments: RM25 [id number] Emergency department Note* Martha Grove RN - 08/29/2023 8:37 AM EST Breakfast ordered for pt [id number] Emergency department Note* Katlin Rico RN - 08/29/2023 8:37 AM EST Bed: 46 Expected date: Expected time: Means of arrival: Comments: RM25 * Martha Grove RN - 08/29/2023 8:37 AM EST Breakfast ordered for pt * Rebekah Sauceda RN - 08/29/2023 7:25 AM EST 0710: Epic chat was sent to admitting team regarding orders for AC/HS insulin. 0725: Insulin gtt stopped per dr puente order. Report given to oncoming shift. * Rebekah Sauceda RN - 08/29/2023 6:16 AM EST notified regarding AM labs and accucheck. Instructed to give 10 units of lantus, wait 1 hour, and then turn off insulin gtt. Orders placed. * Irish Florez MD - 08/28/2023 9:26 PM ESTAssociated Order(s): Critical Care [facility] EMERGENCY DEPARTMENT ATTENDING NOTE: NAME: Everardo Escobar CSN: [id number] 28 y.o. PCP: No, Physician History: Chief Complaint: Generalized Body Aches, Fatigue, Nausea, and Hyperglycemia HPI: The history was obtained from the patient. Everardo is a 28 y.o. male who presents to ED by private vehicle with a chief complaint of Generalized Body Aches, Fatigue, Nausea, and Hyperglycemia. Patient has past medical history of type 2 diabetes mellitus. The patient presents the ED for generalized body ache, fatigue, nausea and vomiting. Patient does believe he has a DKA. Has been going on for1 day. Denies fever, chill, chest pain, shortness of breath, hematemesis, constipation, diarrhea. The patient was reported to have abdominal pain. PMHx: Past Medical History: Diagnosis Date Deep vein thrombosis (HCC) 01/23/2021 right subclavian vein Diabetes mellitus (HCC) 2019 Pyloric stenosis PMSx: Past Surgical History: Procedure Laterality Date CYST REMOVAL FAM. Hx: Family History Problem Relation Age of Onset Hypertension Mother Hyperthyroidism Father No Known Problems Sister No Known Problems Brother SOC. Hx: Social History Socioeconomic History Marital status: Single Tobacco Use Smoking status: Former Packs/day: .3 Types: Cigarettes Smokeless tobacco: Former Types: Chew Vaping Use Vaping Use: Never used Substance and Sexual Activity Alcohol use: Not Currently Comment: Social Drug use: Never Sexual activity: Not Currently MEDs: Previous Medications Medication Sig blood-glucose sensor (Dexcom G6 Sensor) Fauzia Change every 10 days . (Patient not taking: Reported on 12/28/2022 .) insulin glargine (Lantus Solostar U-100 Insulin) 100 unit/mL (3 mL) InPn Inject 26 (twenty six) Units under the skin nightly . insulin lispro (AdmeLOG,HumaLOG) 100 unit/mL injection Sliding scale BS 100-150 = 1 unit, 151-200 =2 units, 201-250 = 3 units. 251-300 = 4 units, 301-350 = 5 units, 351-400 = 6 units with meals. . insulin lispro (HumaLOG KwikPen Insulin) 100 unit/mL InPn Use as directed TID plus sliding scale, approx 50 units total per day. Use insulin: CHO ratio of 1:10 for meals and snacks . ALL: No Known Allergies ROS: Review of Systems Positives and pertinent negatives as per HPI. All other systems were reviewed and are negative. Physical Exam: Patient Vitals for the past 24 hrs: BP Temp Pulse Resp SpO2 Height Weight 08/28/23 2130 (!) 143/83 -- 89 (!) 21 -- -- -- 08/28/232012 (!) 151/88 99.3 F (37.4 C) (!) 107 18 96 % -- -- 08/28/232009 -- -- -- -- -- 6' 95.3 kg (210 lb) Physical Exam Vitals and nursing note reviewed. Constitutional: General: He is awake. Appearance: Normal appearance. HENT: Head: Normocephalic and atraumatic. Nose: Nose normal. Eyes: General: Lids are normal. No scleral icterus. Cardiovascular: Rate and Rhythm: Normal rate and regular rhythm. Heart sounds: Normal heart sounds. No murmur heard. Musculoskeletal: Right lower leg: No swelling. No edema. Left lower leg: No swelling. No edema. Pulmonary: Effort: Pulmonary effort is normal. No respiratory distress. Breath sounds: Normal breath sounds. No decreased breath sounds, wheezing, rhonchi or rales. Abdominal: General: Abdomen is flat. Tenderness: There is no abdominal tenderness. Skin: General: Skin is warm and dry. Neurological: General: No focal deficit present. Mental Status: He is alert and oriented to person, place, and time. Laboratory & Radiological Imaging (if done): Labs Reviewed COVID-19/INFLUENZA A,B MOLECULAR - Abnormal; Notable for the following components: Result Value SARS-CoV-2 Detected (*) All other components within normal limits Narrative: This test was performed under the FDA's Emergency Use Authorization (EUA). Testing was performed using the Tomi Emily SARS-CoV-2 RT-PCR & Influenza A/B Nucleic Acid Teston the Emily Jani System. This test has not been approved for use in asymptomatic patients and its performance in this patient population has not been evaluated. Negative results do not rule out the presence of SARS-CoV-2, influenza A, and/or influenza B. Fact sheets for the EUA can be found at the following links: For Healthcare Providers: https://www.fda.gov/media/640972/download For Patients: https://www.fda.gov/media/715293/download COMPREHENSIVE METABOLIC PANEL - Abnormal; Notable for the following components: Sodium 130 (*) Chloride 97 (*) Bicarbonate 17 (*) Anion Gap 21 (*) Glucose 384 (*) Creatinine 1.77 (*) eGFR 53 (*) All other components within normal limits Narrative: [facility] has implemented the eGFR calculation approach that does not have a coefficient for race that conforms to the NKF-ASN Task Force Recommendations. BETA-HYDROXYBUTYRATE - Abnormal; Notable for the following components: Beta-Hydroxybutyrate 5.9 (*) All other components within normal limits URINALYSIS - Abnormal; Notable for the following components: Specific [place] 1.032 (*) Glucose, Urine >=500 (*) Ketones, Urine >=80 (*) All other components within normal limits Narrative: Microscopic examination is performed on all urinalysis samples and only positive findings are reported. The test for blood on the chemical analytic portion of urinalysis may also be positive due to hemoglobinuria and myoglobinuria and if red blood cells are present they are quantified by microscopic examination. CBC WITH AUTO DIFFERENTIAL - Abnormal; Notable for the following components: Lymphocytes Abs 0.78 (*) Monocytes Abs 0.98 (*) All other components within normal limits TSH WITH REFLEX FREE T4 - Normal CBC AND DIFFERENTIAL Narrative: The following orders were created for panel order CBC and Differential. Procedure Abnormality Status --------- ------ CBC Auto Differential[[id number]] Abnormal Final result Please view results for these tests on the individual orders. TROPONIN OBTAIN VENOUS BLOOD GASES AND PERFORM ALCOHOL, MEDICAL BASIC METABOLIC PANEL POC GLUCOSE POC GLUCOSE POC GLUCOSE POC GLUCOSE XR Chest 1 View Final Result Nonacute portable chest. Workstation ID: [id number] Procedures: Critical Care Performed by: Irish Florez MD Authorized by: Irish Florez MD Total critical care time: 35 minutes Critical care time was exclusive of separately billable procedures and treating other patients. Critical care was necessary to treat or prevent imminent or life-threatening deterioration of the following conditions: metabolic crisis and endocrine crisis. Critical care was time spent personally by me on the following activities: blood draw for specimens, development of treatment plan with patient or surrogate, interpretation of cardiac output measurements, discussions with consultants, evaluation of patient's response to treatment, pulse oximetry, ordering and review of radiographic studies, ordering and review of laboratory studies, examination of patient, obtaining history from patient or surrogate, ordering and performing treatments and interventions, re-evaluation of patient's condition and review of old charts. Comments: DKA on insulin drip ED Course / Medical Decision Making: I did personally review Everardo's past medical history, surgical history, social history, as well as family history (when relevant). In this case, I also oversaw the his drug management by reviewing his medication list, allergy list, as well as the medications that I prescribed during the ED course and/or recommended as an out-patient (including possible OTC medications such as acetaminophen, NSAIDs , etc). His past medical problem list included: Active Ambulatory Problems Diagnosis Date Noted Type 1 diabetes mellitus without complication (HCC) 02/05/2021 Acute deep vein thrombosis (DVT) of right upper extremity (HCC) 02/05/2021 DKA, type 1, not at goal (HCC) 04/24/2021 Nausea & vomiting 04/24/2021 SIRS (systemic inflammatory response syndrome) (HCC) 03/22/2022 Resolved Ambulatory Problems Diagnosis Date Noted No Resolved Ambulatory Problems Past Medical History: Diagnosis Date Deep vein thrombosis (HCC) 01/23/2021 Diabetes mellitus (HCC) 2019 Pyloric stenosis ED MEDICATIONS GIVEN: Medications sodium chloride (PF) (NS) flush 5 mL (has no administration in time range) And sodium chloride 0.9% (NS) (has no administration in time range) sodium chloride 0.9% (NS) bolus 1,000 mL (has no administration in time range) sodium chloride 0.9% (NS) bolus 1,000 mL (1,000 mL Intravenous New Bag 08/28/232138) insulin regular in 0.9 % NaCl (MYXREDLIN) 100 Units/100 mL infusion (has no administration in time range) sodium chloride 0.9% (NS) (has no administration in time range) ondansetron (ZOFRAN) injection 4 mg (4 mg Intravenous Given 08/28/232138) After reviewing the items above, I did look at previous medical documentation, such as recent hospitalizations, office visits, and/or recent consultations with PCP/specialist. SDOH: Another factor that I considered in Everardo's care was his Social Determinants of Health (SDOH). During this ED encounter, he did NOT appear to have any significant issues identified. LAB TESTING: Ancillary lab testing: Hyperglycemia, elevated beta hydroxybutyrate, anion gap 21, bicarb 17, BUN/creatinine 21/1.77, COVID-positive RADIOLOGY: I did consider radiological studies for Everardo's care today: Chest x- ray grossly normal ED COURSE: ED Course as of 08/28/232228 Sat Aug 28, [id number] CBC and Differential(!) [YP] 2117 Comprehensive Metabolic Panel(!) [YP] 2117 TSH with Reflex Free T4 [YP] 2117 Beta-Hydroxybutyrate(!) [YP] 2117 Troponin [YP] 2126 SARS-CoV-2(!): Detected [YP] 2135 XR Chest 1 View [YP] ED Course User Index [YP] Irish Florez MD . MDM 28-year-old male with a history of type 1 diabetes mellitus presents the ED for nausea vomiting andgeneralized body ache. The patient is hemodynamically stable, afebrile, nontoxic-appearing and no respiratory distress on initial assessment. Exam with clear lung sounds bilaterally without wheezing or stridor, epigastric area tender to palpate, no peritoneal sign, bowel sounds is normoactive. Diffe rential diagnosis including but not limited to viral illness, DKA, ZAHIDA, electrolyte derangement. Lab evaluation is concerns for DKA. The COVID is positive. Insulin drip ordered. Patient will admit [facility] for further evaluation and continued medical management. I have discussed the patient care at length with admitting physician who will assume care immediately and manage all further medical care for this patient. Any further changes in this patient's medical condition will be communicated to the admitting physician by the nurse taking care of this patient or those assisting nurse in this patient's care Clinical Impression: 1. Type 1 diabetes mellitus with ketoacidosis without coma (HCC) 2. COVID-19 Disposition: ED Disposition ED Disposition Hospitalize Condition -- Comment Recommended Level of Care: Intermediate Care Phone call required?: No Irish Florez MD ED Attending Physician [facility] EMERGENCY DEPARTMENT Irish Florez MD 08/28/234 * Kristan Armstrong RN - 08/28/2023 8:10 PM EST Pt presents to ED c/c body aches/nausea/fatigue/vomting. Pt also reports he is type 1 DM. documented in this [id number] Emergency department Note* Rebekah Sauceda RN - 08/29/2023 7:25 AM EST 0710: Epic chat was sent to admitting team regarding orders for AC/HS insulin. 0725: Insulin gtt stopped per dr puente order. Report given to oncoming shift. [id number] Emergency department Note* Rebekah Sauceda RN - 08/29/2023 6:16 AM EST notified regarding AM labs and accucheck. Instructed to give 10 units of lantus, wait 1 hour, and then turn off insulin gtt. Orders placed. [id number] History and physical note* Flaco Mix MD - 08/28/2023 10:41 PM EST [facility] [place] HISTORY AND PHYSICAL -- [facility] Patient Name: Everardo Escobar : 1995 MR #: [id number] beta-hydroxybutyrate Admit Date: 08/28/2023 Physicians: No, Physician (Family); No ref. provider found (Referring) Everardo Escobar is a 28 y.o. male patient of No, Physician with history of previous history of DVT right subclavian vein and is known for diabetes melitis insulin-dependent is here due to weakness andbodyaches associate with nausea and reported hyperglycemia blood glucose was elevated on arrival at384 with ketosis with beta hydroxybutyrate up to 5.9 with anion gap of 21 bicarb low at 17 concern of diabetic ketoacidosis, also was found to have COVID-19 positive, chest x-ray showed no infiltrates and will maintain oxygen saturation, Diabetic ketoacidosis Will give IV fluid boluses and place patient insulin drip and follow DKA protocol and place patienton telemetry, close monitoring electrolytes acid-base and anion gap Acute kidney injury Prerenal azotemia in the setting of diabetic ketoacidosis, continue IV hydration and further trend of kidney function, sent for urinalysis COVID-19 respiratory infection Overall appears to be stable oxygen saturation at room air, and chest x-ray showed no infiltrates, will check inflammatory markers and continue supportive measures Residence prior to admission: house or apartment Was patient transferred from outlying hospital or ED no Quality Measures DVT Prophylaxis: ambulation only [place] Catheter: absent Medication Reconciliation: Verified Risk variables present on admission: Acute Kidney Injury and Acidosis. Please see assessment and plan for further details. Estimated Date of Discharge greater than 2 midnights Code Status Full Code; code status verified on 08/28/2023 Chief Complaint generalized weakness and bodyaches History of Present Illness Everardo Escobar is a 28 y.o. male patient of , Physician with history of previous history of DVT right subclavian vein and is known for diabetes melitis insulin-dependent is here due to weakness and bodyaches associate with nausea and reported hyperglycemia blood glucosewas elevated on arrival at 384 with ketosis with beta hydroxybutyrate up to 5.9 with anion gap of 21 bicarb low at 17 concern of diabetic ketoacidosis, also was found to have COVID-19 positive, chestx-ray showed no infiltrates and will maintain oxygen saturation, presents to ED by private vehicle with a chief complaint of Generalized Body Aches, Fatigue, Nausea, and Hyperglycemia. Patient has past medical history of type 2 diabetes mellitus. The patient presents the ED for generalized body ache, fatigue, nausea and vomiting. Patient does believe he has a DKA. Has been going on for 1 day. Denies fever, chill, chest pain, shortness of breath, hematemesis, constipation, diarrhea. The patient was reported to have abdominal michaela 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 Diabetes mellitus (HCC) 2019 Pyloric stenosis Past Surgical History Past Surgical History: Procedure Laterality Date CYST REMOVAL Family History Family History Problem Relation Age of Onset Hypertension Mother Hyperthyroidism Father No Known Problems Sister No Known Problems Brother Social History Social History Tobacco Use Smoking Status Former Packs/day: .3 Types: Cigarettes Smokeless Tobacco Former Types: Chew Social History Substance and Sexual Activity Alcohol Use Not Currently Comment: Social Social History Substance and Sexual Activity Drug Use Never Allergy Information I have reviewed the patient's allergies. Patient has no known allergies. Home Medications Home medications were reviewed. Review Of Systems All relevant systems have been reviewed and are negative except as noted in HPI or below Physical Examination BP (!) 143/83 Pulse 89 Temp 99.3 F (37.4 C) Resp (!) 21 Ht 6' Wt 95.3 kg (210 lb) SpO2 96% BMI 28.48 kg/m General Appearance: alert; acutely ill appearing; in no acute distress HEENT: Head- normocephalic; Eyes- EOMI, sclera anicteric; Throat- mucous membranes moist Cardiovascular: regular rate and rhythm; normal S1, S2; no murmurs, rubs, clicks or gallops; peripheral edema absent Respiratory: lungs clear to auscultation; without wheezes, rales or rhonchi; on room air Abdomen: soft, non-tender, non-distended Neurological: oriented x 3; normal speech; no focal findings or movement disorder noted Musculoskeletal: no significant deformity or tenderness to palpation Skin: normal coloration Psych: normal mood and affect [id number] History and physical note* Flaco Mix MD - 08/28/2023 10:41 PM EST [facility] [place] HISTORY AND PHYSICAL -- [facility] Patient Name: Everardo Escobar : 1995 MR #: [id number] beta-hydroxybutyrate Admit Date: 08/28/2023 Physicians: No, Physician (Family); No ref. provider found (Referring) Everardo Escobar is a 28 y.o. male patient of No, Physician with history of previous history of DVT right subclavian vein and is known for diabetes melitis insulin-dependent is here due to weakness andbodyaches associate with nausea and reported hyperglycemia blood glucose was elevated on arrival at384 with ketosis with beta hydroxybutyrate up to 5.9 with anion gap of 21 bicarb low at 17 concern of diabetic ketoacidosis, also was found to have COVID-19 positive, chest x-ray showed no infiltrates and will maintain oxygen saturation, Diabetic ketoacidosis Will give IV fluid boluses and place patient insulin drip and follow DKA protocol and place patienton telemetry, close monitoring electrolytes acid-base and anion gap Acute kidney injury Prerenal azotemia in the setting of diabetic ketoacidosis, continue IV hydration and further trend of kidney function, sent for urinalysis COVID-19 respiratory infection Overall appears to be stable oxygen saturation at room air, and chest x-ray showed no infiltrates, will check inflammatory markers and continue supportive measures Residence prior to admission: house or apartment Was patient transferred from outlying hospital or ED no Quality Measures DVT Prophylaxis: ambulation only [place] Catheter: absent Medication Reconciliation: Verified Risk variables present on admission: Acute Kidney Injury and Acidosis. Please see assessment and plan for further details. Estimated Date of Discharge greater than 2 midnights Code Status Full Code; code status verified on 08/28/2023 Chief Complaint generalized weakness and bodyaches History of Present Illness Everardo Escobar is a 28 y.o. male patient of No, Physician with history of previous history of DVT right subclavian vein and is known for diabetes melitis insulin-dependent is here due to weakness and bodyaches associate with nausea and reported hyperglycemia blood glucosewas elevated on arrival at 384 with ketosis with beta hydroxybutyrate up to 5.9 with anion gap of 21 bicarb low at 17 concern of diabetic ketoacidosis, also was found to have COVID-19 positive, chestx-ray showed no infiltrates and will maintain oxygen saturation, presents to ED by private vehicle with a chief complaint of Generalized Body Aches, Fatigue, Nausea, and Hyperglycemia. Patient has past medical history of type 2 diabetes mellitus. The patient presents the ED for generalized body ache, fatigue, nausea and vomiting. Patient does believe he has a DKA. Has been going on for 1 day. Denies fever, chill, chest pain, shortness of breath, hematemesis, constipation, diarrhea. The patient was reported to have abdominal michaela 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 Diabetes mellitus (HCC) 2019 Pyloric stenosis Past Surgical History Past Surgical History: Procedure Laterality Date CYST REMOVAL Family History Family History Problem Relation Age of Onset Hypertension Mother Hyperthyroidism Father No Known Problems Sister No Known Problems Brother Social History Social History Tobacco Use Smoking Status Former Packs/day: .3 Types: Cigarettes Smokeless Tobacco Former Types: Chew Social History Substance and Sexual Activity Alcohol Use Not Currently Comment: Social Social History Substance and Sexual Activity Drug Use Never Allergy Information I have reviewed the patient's allergies. Patient has no known allergies. Home Medications Home medications were reviewed. Review Of Systems All relevant systems have been reviewed and are negative except as noted in HPI or below Physical Examination BP (!) 143/83 Pulse 89 Temp 99.3 F (37.4 C) Resp (!) 21 Ht 6' Wt 95.3 kg (210 lb) SpO2 96% BMI 28.48 kg/m General Appearance: alert; acutely ill appearing; in no acute distress HEENT: Head- normocephalic; Eyes- EOMI, sclera anicteric; Throat- mucous membranes moist Cardiovascular: regular rate and rhythm; normal S1, S2; no murmurs, rubs, clicks or gallops; peripheral edema absent Respiratory: lungs clear to auscultation; without wheezes, rales or rhonchi; on room air Abdomen: soft, non-tender, non-distended Neurological: oriented x 3; normal speech; no focal findings or movement disorder noted Musculoskeletal: no significant deformity or tenderness to palpation Skin: normal coloration Psych: normal mood and affect documented in this [id number] Physician Emergency department Note* Irish Florez MD - 08/28/2023 9:26 PM ESTAssociated Order(s): Critical Care [facility] EMERGENCY DEPARTMENT ATTENDING NOTE: NAME: Everardo Escobar CSN: [id number] 28 y.o. PCP: Nelsy, Physician History: Chief Complaint: Generalized Body Aches, Fatigue, Nausea, and Hyperglycemia HPI: The history was obtained from the patient. Everardo is a 28 y.o. male who presents to ED by private vehicle with a chief complaint of Generalized Body Aches, Fatigue, Nausea, and Hyperglycemia. Patient has past medical history of type 2 diabetes mellitus. The patient presents the ED for generalized body ache, fatigue, nausea and vomiting. Patient does believe he has a DKA. Has been going on for1 day. Denies fever, chill, chest pain, shortness of breath, hematemesis, constipation, diarrhea. The patient was reported to have abdominal pain. PMHx: Past Medical History: Diagnosis Date Deep vein thrombosis (HCC) 01/23/2021 right subclavian vein Diabetes mellitus (HCC) 2019 Pyloric stenosis PMSx: Past Surgical History: Procedure Laterality Date CYST REMOVAL FAM. Hx: Family History Problem Relation Age of Onset Hypertension Mother Hyperthyroidism Father No Known Problems Sister No Known Problems Brother SOC. Hx: Social History Socioeconomic History Marital status: Single Tobacco Use Smoking status: Former Packs/day: .3 Types: Cigarettes Smokeless tobacco: Former Types: Chew Vaping Use Vaping Use: Never used Substance and Sexual Activity Alcohol use: Not Currently Comment: Social Drug use: Never Sexual activity: Not Currently MEDs: Previous Medications Medication Sig blood-glucose sensor (Dexcom G6 Sensor) Fauzia Change every 10 days . (Patient not taking: Reported on 12/28/2022 .) insulin glargine (Lantus Solostar U-100 Insulin) 100 unit/mL (3 mL) InPn Inject 26 (twenty six) Units under the skin nightly . insulin lispro (AdmeLOG,HumaLOG) 100 unit/mL injection Sliding scale BS 100-150 = 1 unit, 151-200 =2 units, 201-250 = 3 units. 251-300 = 4 units, 301-350 = 5 units, 351-400 = 6 units with meals. . insulin lispro (HumaLOG KwikPen Insulin) 100 unit/mL InPn Use as directed TID plus sliding scale, approx 50 units total per day. Use insulin: CHO ratio of 1:10 for meals and snacks . ALL: No Known Allergies ROS: Review of Systems Positives and pertinent negatives as per HPI. All other systems were reviewed and are negative. Physical Exam: Patient Vitals for the past 24 hrs: BP Temp Pulse Resp SpO2 Height Weight 08/28/23 2130 (!) 143/83 -- 89 (!) 21 -- -- -- 08/28/232012 (!) 151/88 99.3 F (37.4 C) (!) 107 18 96 % -- -- 08/28/232009 -- -- -- -- -- 6' 95.3 kg (210 lb) Physical Exam Vitals and nursing note reviewed. Constitutional: General: He is awake. Appearance: Normal appearance. HENT: Head: Normocephalic and atraumatic. Nose: Nose normal. Eyes: General: Lids are normal. No scleral icterus. Cardiovascular: Rate and Rhythm: Normal rate and regular rhythm. Heart sounds: Normal heart sounds. No murmur heard. Musculoskeletal: Right lower leg: No swelling. No edema. Left lower leg: No swelling. No edema. Pulmonary: Effort: Pulmonary effort is normal. No respiratory distress. Breath sounds: Normal breath sounds. No decreased breath sounds, wheezing, rhonchi or rales. Abdominal: General: Abdomen is flat. Tenderness: There is no abdominal tenderness. Skin: General: Skin is warm and dry. Neurological: General: No focal deficit present. Mental Status: He is alert and oriented to person, place, and time. Laboratory & Radiological Imaging (if done): Labs Reviewed COVID-19/INFLUENZA A,B MOLECULAR - Abnormal; Notable for the following components: Result Value SARS-CoV-2 Detected (*) All other components within normal limits Narrative: This test was performed under the FDA's Emergency Use Authorization (EUA). Testing was performed using the Tomi Emily SARS-CoV-2 RT-PCR & Influenza A/B Nucleic Acid Teston the Emily Jani System. This test has not been approved for use in asymptomatic patients and its performance in this patient population has not been evaluated. Negative results do not rule out the presence of SARS-CoV-2, influenza A, and/or influenza B. Fact sheets for the EUA can be found at the following links: For Healthcare Providers: https://www.fda.gov/media/555660/download For Patients: https://www.fda.gov/media/142078/download COMPREHENSIVE METABOLIC PANEL - Abnormal; Notable for the following components: Sodium 130 (*) Chloride 97 (*) Bicarbonate 17 (*) Anion Gap 21 (*) Glucose 384 (*) Creatinine 1.77 (*) eGFR 53 (*) All other components within normal limits Narrative: [facility] has implemented the eGFR calculation approach that does not have a coefficient for race that conforms to the NKF-ASN Task Force Recommendations. BETA-HYDROXYBUTYRATE - Abnormal; Notable for the following components: Beta-Hydroxybutyrate 5.9 (*) All other components within normal limits URINALYSIS - Abnormal; Notable for the following components: Specific [place] 1.032 (*) Glucose, Urine >=500 (*) Ketones, Urine >=80 (*) All other components within normal limits Narrative: Microscopic examination is performed on all urinalysis samples and only positive findings are reported. The test for blood on the chemical analytic portion of urinalysis may also be positive due to hemoglobinuria and myoglobinuria and if red blood cells are present they are quantified by microscopic examination. CBC WITH AUTO DIFFERENTIAL - Abnormal; Notable for the following components: Lymphocytes Abs 0.78 (*) Monocytes Abs 0.98 (*) All other components within normal limits TSH WITH REFLEX FREE T4 - Normal CBC AND DIFFERENTIAL Narrative: The following orders were created for panel order CBC and Differential. Procedure Abnormality Status --------- ------ CBC Auto Differential[[id number]] Abnormal Final result Please view results for these tests on the individual orders. TROPONIN OBTAIN VENOUS BLOOD GASES AND PERFORM ALCOHOL, MEDICAL BASIC METABOLIC PANEL POC GLUCOSE POC GLUCOSE POC GLUCOSE POC GLUCOSE XR Chest 1 View Final Result Nonacute portable chest. Workstation ID: [id number] Procedures: Critical Care Performed by: Irish Florez MD Authorized by: Irish Florez MD Total critical care time: 35 minutes Critical care time was exclusive of separately billable procedures and treating other patients. Critical care was necessary to treat or prevent imminent or life-threatening deterioration of the following conditions: metabolic crisis and endocrine crisis. Critical care was time spent personally by me on the following activities: blood draw for specimens, development of treatment plan with patient or surrogate, interpretation of cardiac output measurements, discussions with consultants, evaluation of patient's response to treatment, pulse oximetry, ordering and review of radiographic studies, ordering and review of laboratory studies, examination of patient, obtaining history from patient or surrogate, ordering and performing treatments and interventions, re-evaluation of patient's condition and review of old charts. Comments: DKA on insulin drip ED Course / Medical Decision Making: I did personally review Everardo's past medical history, surgical history, social history, as well as family history (when relevant). In this case, I also oversaw the his drug management by reviewing his medication list, allergy list, as well as the medications that I prescribed during the ED course and/or recommended as an out-patient (including possible OTC medications such as acetaminophen, NSAIDs , etc). His past medical problem list included: Active Ambulatory Problems Diagnosis Date Noted Type 1 diabetes mellitus without complication (HCC) 02/05/2021 Acute deep vein thrombosis (DVT) of right upper extremity (HCC) 02/05/2021 DKA, type 1, not at goal (HCC) 04/24/2021 Nausea & vomiting 04/24/2021 SIRS (systemic inflammatory response syndrome) ([facility]) 03/22/2022 Resolved Ambulatory Problems Diagnosis Date Noted No Resolved Ambulatory Problems Past Medical History: Diagnosis Date Deep vein thrombosis (HCC) 01/23/2021 Diabetes mellitus ([facility]) 2019 Pyloric stenosis ED MEDICATIONS GIVEN: Medications sodium chloride (PF) (NS) flush 5 mL (has no administration in time range) And sodium chloride 0.9% (NS) (has no administration in time range) sodium chloride 0.9% (NS) bolus 1,000 mL (has no administration in time range) sodium chloride 0.9% (NS) bolus 1,000 mL (1,000 mL Intravenous New Bag 08/28/232138) insulin regular in 0.9 % NaCl (MYXREDLIN) 100 Units/100 mL infusion (has no administration in time range) sodium chloride 0.9% (NS) (has no administration in time range) ondansetron (ZOFRAN) injection 4 mg (4 mg Intravenous Given 08/28/232138) After reviewing the items above, I did look at previous medical documentation, such as recent hospitalizations, office visits, and/or recent consultations with PCP/specialist. SDOH: Another factor that I considered in Everardo's care was his Social Determinants of Health (SDOH). During this ED encounter, he did NOT appear to have any significant issues identified. LAB TESTING: Ancillary lab testing: Hyperglycemia, elevated beta hydroxybutyrate, anion gap 21, bicarb 17, BUN/creatinine 21/1.77, COVID-positive RADIOLOGY: I did consider radiological studies for Everardo's care today: Chest x- ray grossly normal ED COURSE: ED Course as of 08/28/239 Sat Aug 28, [id number] CBC and Differential(!) [YP] 2117 Comprehensive Metabolic Panel(!) [YP] 2117 TSH with Reflex Free T4 [YP] 2117 Beta-Hydroxybutyrate(!) [YP] 2117 Troponin [YP] 2126 SARS-CoV-2(!): Detected [YP] 2135 XR Chest 1 View [YP] ED Course User Index [YP] Irish Florez MD . MDM 28-year-old male with a history of type 1 diabetes mellitus presents the ED for nausea vomiting andgeneralized body ache. The patient is hemodynamically stable, afebrile, nontoxic-appearing and no respiratory distress on initial assessment. Exam with clear lung sounds bilaterally without wheezing or stridor, epigastric area tender to palpate, no peritoneal sign, bowel sounds is normoactive. Diffe rential diagnosis including but not limited to viral illness, DKA, ZAHIDA, electrolyte derangement. Lab evaluation is concerns for DKA. The COVID is positive. Insulin drip ordered. Patient will admit [facility] hospitalist for further evaluation and continued medical management. I have discussed the patient care at length with admitting physician who will assume care immediately and manage all further medical care for this patient. Any further changes in this patient's medical condition will be communicated to the admitting physician by the nurse taking care of this patient or those assisting nurse in this patient's care Clinical Impression: 1. Type 1 diabetes mellitus with ketoacidosis without coma (HCC) 2. COVID-19 Disposition: ED Disposition ED Disposition Hospitalize Condition -- Comment Recommended Level of Care: Intermediate Care Phone call required?: No Irish Florez MD ED Attending Physician [facility] EMERGENCY DEPARTMENT Irish Florez MD 08/28/23 2222 [id number] Triage note* Kristan Armstrong RN - 08/28/2023 8:10 PM EST Pt presents to ED c/c body aches/nausea/fatigue/vomting. Pt also reports he is type 1 DM. [facility] [id number] History of Present illness Narrative* Sita Rojas MD - 12/28/2022 10:57 AM EDT Images from the original note were not included. Patient ID: Everardo Escobar is a 27 y.o. male 1995 Subjective: Everardo Escobar presents for follow up of Type 1 diabetes Patient was diagnosed with T1DM in 07/2019 Current Outpatient Medications Medication Sig Dispense Refill insulin glargine (Lantus Solostar U-100 Insulin) 100 unit/mL (3 mL) InPn Inject 26 (twenty six) Units under the skin nightly . 15 mL 11 insulin lispro (AdmeLOG,HumaLOG) 100 unit/mL injection Sliding scale BS 100-150 = 1 unit, 151-200 =2 units, 201-250 = 3 units. 251-300 = 4 units, 301-350 = 5 units, 351-400 = 6 units with meals. . insulin lispro (HumaLOG KwikPen Insulin) 100 unit/mL InPn Use as directed TID plus sliding scale, approx 50 units total per day. Use insulin: CHO ratio of 1:10 for meals and snacks . 30 mL 6 blood-glucose sensor (Dexcom G6 Sensor) Fauzia Change every 10 days . (Patient not taking: Reported on 12/28/2022 .) 9 each 4 No current facility-administered medications for this visit. Review of Systems: Review of Systems Constitutional: Negative for activity change, appetite change, fatigue and unexpected weight change. Eyes: Negative for visual disturbance. Respiratory: Negative for chest tightness and shortness of breath. Cardiovascular: Negative for chest pain, palpitations and leg swelling. Gastrointestinal: Negative for abdominal pain, constipation, diarrhea, nausea and vomiting. Endocrine: Negative for polydipsia, polyphagia and polyuria. Genitourinary: Negative for difficulty urinating and frequency. Musculoskeletal: Negative for arthralgias and myalgias. Skin: Negative for rash and wound. Neurological: Negative for dizziness, weakness and numbness. Psychiatric/Behavioral: Negative for sleep disturbance. The patient is not nervous/anxious. The following portions of the patient's history were reviewed and updated as appropriate: allergies, current medications, past family history, past medical history, past social history, past surgicalhistory and problem list. Objective: BP 120/81 Pulse (!) 58 Wt 97.5 kg (215 lb) BMI 29.16 kg/m Wt Readings from Last 3 Encounters: 12/28/22 97.5 kg (215 lb) 11/01/22 90.3 kg (199 lb) 08/31/22 98.4 kg (217 lb) Physical Exam: Physical Exam General: alert, appears stated age and cooperative Eyes: conjunctivae/corneas clear. PERRL, EOM's intact. Neck: no adenopathy, supple, symmetrical, trachea midline. Thyroid: No thyromegaly appreciated Lung: clear to auscultation bilaterally Heart: regular rate and rhythm, S1, S2 normal, no murmur, click, rub or gallop Extremities: extremities normal, atraumatic, no cyanosis or edema Feet: Dry skin, Right Foot: warm, good capillary refill, normal DP and normal sensory exam Left Foot: warm, good capillary refill, normal DP and normal sensory exam. Monofilament exam not assessed, bilateral lower extremities. Neuro: normal without focal findings, mental status, speech normal, alert and oriented x3 and CECY Lab Review Date: 12/19/22 HgbA1c 7.2% Na 142, K 3.8, creat 0.83, eGFR 123 AST 16, ALT 28 TSH 0.69, FT4--1.0 08/29/2022 Hemoglobin A1C 8.4% Creatinine 1.08 GFR 96 AST 17 ALT 24 TSH 1.00 FT4 1.1 Microalbumin Creatinine ratio 11 Cholesterol 147 Triglycerides 121 HL 52 LDL 71 02/28/2022 Hemoglobin A1c 7.8% Creatinine 0.9 GFR 108 AST 16 ALT 29 Cholesterol 167 triglycerides 66 HDL 59 LDL 95 TSH 0.49 Free T4 1.1 Microalbumin creatinine ratio 20 11/03/2021 Hemogloboin A1C 8.2% in office 08/02/2021 Hemoglobin A1c 7.8% Creatinine 1.01 GFR 102 AST 15 ALT 23 Microalbumin creatinine ratio 135 TSH 0.94 free T4 1.0 C-peptide 0.04 Cholesterol 159 triglycerides 35 HDL 67 LDL 85 WBC 4 hemoglobin 16 hematocrit 47 platelets 255 Assessment: Dx: 1. 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) Hemoglobin A1c Lipid Panel Comprehensive Metabolic Panel Microalbumin/Creatinine Ratio, UR Random Type 1 diabetes, under good control Currently managed with: Humalog insulin 11-12units at breakfast,11-12 units at lunch, 11-12units at dinner Uses ins:CHO ratio 1:10 at meals Tresiba insulin 26 units at bedtime Current Hemoglobin A1C= Lab Results Component Value Date HGBA1C 7.2 (H) 12/19/2022 HGBA1C 7.4 (H) 10/31/2022 HGBA1C 8.4 (H) 08/29/2022 Home blood sugar records: See scanned readings, average BG 161 per meter. Any episodes of hypoglycemia? Frequent low BG during day at work NOTES: Patient has been having frequent low blood sugars at work with BG as low as 32. He states that he can sense his hypoglycemia, but has difficulty with his employer allowing him to obtain carbohydrates immediately to treat the low blood sugar. Often there is a significant delay between the time he senses his hypoglycemia and when he can treat it. I have advised him to keep glucose tablets inhis pocket as a quick source of glucose. He can also use lifesaver or other hard candy. I have alsowritten a note for him to give to his employer requesting that he be able to treat hypoglycemia immediately in order to prevent a loss of consciousness. Also, the patient has an OmniPod 5 insulin pump system at home. He has not been able to take time off work in order to get trained on the pump. In view of his hypoglycemia, I believe he would definitely benefit from using an insulin pump and a 6 Dexcom CGM. He does have the Dexcom system at home, but has not been using it stating that he needs a new transmitter. Plan: Reduce Lantus to 22 units. He will attempt to meet with Halima Voss RN, pump sap trainer in order to get started on the OmniPod 5insulin pump system with the Dexcom CGM in order to help reduce his hypoglycemia episodes and stabilize his blood sugars. 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 He was encouraged to get yearly eye examinations done to monitor for that, patient just got his insurance back but does have a plan to do that in the near future Nephropathy: Negative Creatinine 0.83 GFR 123 12/19/2022 Microalb improved and now negative. Lab Results Component Value Date CREATININE 0.83 12/19/2022 Microlbumin/creat ratio: 11 08/29/2022 Is patient on CHING inhibitor or angiotensin II receptor michael? no Peripheral Neuropathy: Negative Denies symptoms associated with neuropathy (numbness and/or tingling) Autonomic Neuropathy: Negative Hypoglycemia unawareness. Senses low BG at 60mg/dl. Hyperlipidemia: Negative Currently taking: No lipid lowering agents. LFT's WNL Hypertension: Negative . Currently taking: Patient on no antihypertensives BP: 120/81 Cardiac: Negative Experiencing chest pain No . Experiencing shortness of breath No History of No history of CAD Follows routinely with: Vascular: Positive History of DVT in arm after hit with softball - on short term Eliquis, since discontinued Feet: 08/31/2022 Follows with Podiatry: No International Recruiter: History of foot ulceration: No History of amputation: No Thyroid: Lab Results Component Value Date TSH 0.69 12/19/2022 Negative Other: Plan: 1. Type 1 diabetes Uses Humalog 1:10 ins:CHO Humalog insulin: 11-12 units at breakfast; 11-12 units at lunch; 13-14 units at supper Lantus insulin: 22 units at bedtime Sliding scale: Use as directed with Humalog insulin before meals and at bedtime. 151-200: 2 units fast acting insulin 201-250: 4 units fast acting insulin 251-300: 6 units fast acting insulin 301-350: 8 units fast acting insulin 351-400: 10 units fast acting insulin above 400: 12 units fast acting insulin Resume use of Dexcom CGM Schedule training with Halima Voss, RN, BSN. She will meet with him in the evening after his work shift is over in order to facilitate his pump training. 2. Education: Reviewed ABCs of diabetes management (respective goals in parentheses): A1C (7.0-8.0), blood pressure (<130/80), and cholesterol (LDL <100). 3. Compliance at present is estimated to be good. Efforts to improve compliance (if necessary) willbe directed at regular blood sugar monitorin times daily. 4. Follow up: 4 months 5. Record blood sugar readings as instructed. Call if BG consistently <70 or >250. [phone] 6. Bring blood sugar meter to follow up appointment. Orders Placed This Encounter Procedures Hemoglobin A1c Lipid Panel Comprehensive Metabolic Panel Microalbumin/Creatinine Ratio, UR Random Electronically signed by Sita Rojas MD 01/03/23 11:19 PM documented in this [id number] Instructions* Patient Instructions* Sloane Tomlin, INDUSTRIAL TECHNICIAN - 08/31/2022 9:52 AM EST Call the office with Blood sugar readings for dose adjustments to your insulin, if needed. The goal hemoglobin A1C is 7%-8%, closer to 7%, which is an average BG of 150 Please call the office sooner for episodes of hypoglycemia, BG < 70. Please remember to check your blood sugar 4x per day. Bring your blood sugar meter with you to appointments for review/download. It is important for us to prove you are checking your blood sugar, in order for us to renew/prescribe testing supplies. *Get updated labs done prior to your follow up appointment with us. If you do not get updated labs done, that are requested, please consider rescheduling your appointment until those are done * Adjustments: Humalog insulin: 11-12 units at breakfast; 11-12 units at lunch; 13-14 units at supper Lantus insulin: 26 units at bedtime Sliding scale: Use as directed with Humalog insulin before meals and at bedtime. 151-200: 2 units fast acting insulin 201-250: 4 units fast acting insulin 251-300: 6 units fast acting insulin 301-350: 8 units fast acting insulin 351-400: 10 units fast acting insulin above 400: 12 units fast acting insulin documented in this [id number] History of Present illness Narrative* Sloane Tomlin CNP - 08/31/2022 9:40 AM EST Patient ID: Everardo Escobar is a 27 y.o. male 1995 Subjective: Everardo Escobar presents for follow up of Type 1 diabetes Patient was diagnosed with T1DM in 07/2019 HPI Mr. Escobar is a 27-year-old male patient presents to our office for follow-up of his type 1 diabetes. Patient reports he is been doing well and denies any significant issues today. Patient's hemoglobin A1c 8.4%. He brought his blood sugar meter and the readings were reviewed and documented and scanned the patient's chart. He also uses a dexcom CGM which was downloaded and reviewed. He ran out of sensors so he has been without for a couple of weeks. He typically works dayshift. He reports any significant fluctuations in BG is typically secondary to poor food choices. He denies retinopathy or peripheral neuropathy. He does have a history of microalbuminuria. He has received an omnipod insulin pump but has yet to be able to do any training. Updated labs are reviewed below. Current Outpatient Medications Medication Sig Dispense Refill blood-glucose sensor (Dexcom G6 Sensor) Fauzia Change every 10 days . 9 each 4 blood-glucose transmitter (Dexcom G4 Transmitter) Fauzia Use every 90 days . 1 each 2 insulin glargine (Lantus Solostar U-100 Insulin) 100 unit/mL (3 mL) InPn Inject 26 (twenty six) Units under the skin nightly . 15 mL 11 insulin lispro (HumaLOG KwikPen Insulin) 100 unit/mL InPn Use as directed TID plus sliding scale, approx 50 units total per day . 30 mL 6 No current facility-administered medications for this visit. Review of Systems: Review of Systems Constitutional: Negative for activity change, appetite change, fatigue and unexpected weight change. Eyes: Negative for visual disturbance. Respiratory: Negative for chest tightness and shortness of breath. Cardiovascular: Negative for chest pain, palpitations and leg swelling. Gastrointestinal: Negative for abdominal pain, constipation, diarrhea, nausea and vomiting. Endocrine: Negative for polydipsia, polyphagia and polyuria. Genitourinary: Negative for difficulty urinating and frequency. Musculoskeletal: Negative for arthralgias and myalgias. Skin: Negative for rash and wound. Neurological: Negative for dizziness, weakness and numbness. Psychiatric/Behavioral: Negative for sleep disturbance. The patient is not nervous/anxious. The following portions of the patient's history were reviewed and updated as appropriate: allergies, current medications, past family history, past medical history, past social history, past surgicalhistory and problem list. Objective: BP 128/77 Pulse 76 Ht 6' Wt 98.4 kg (217 lb) BMI 29.43 kg/m Wt Readings from Last 3 Encounters: 08/31/22 98.4 kg (217 lb) 05/25/22 98 kg (216 lb) 03/23/22 100.3 kg (221 lb 1.9 oz) Physical Exam: Physical Exam General: alert, appears stated age and cooperative Eyes: conjunctivae/corneas clear. PERRL, EOM's intact. Neck: no adenopathy, supple, symmetrical, trachea midline. Thyroid: No thyromegaly appreciated Lung: clear to auscultation bilaterally Heart: regular rate and rhythm, S1, S2 normal, no murmur, click, rub or gallop Extremities: extremities normal, atraumatic, no cyanosis or edema Feet: Dry skin, Right Foot: warm, good capillary refill, normal DP and normal sensory exam Left Foot: warm, good capillary refill, normal DP and normal sensory exam. Monofilament exam not assessed, bilateral lower extremities. Neuro: normal without focal findings, mental status, speech normal, alert and oriented x3 and CECY Lab Review Date: 08/29/2022 Hemoglobin A1C 8.4% Creatinine 1.08 GFR 96 AST 17 ALT 24 TSH 1.00 FT4 1.1 Microalbumin Creatinine ratio 11 Cholesterol 147 Triglycerides 121 HL 52 LDL 71 02/28/2022 Hemoglobin A1c 7.8% Creatinine 0.9 GFR 108 AST 16 ALT 29 Cholesterol 167 triglycerides 66 HDL 59 LDL 95 TSH 0.49 Free T4 1.1 Microalbumin creatinine ratio 20 11/03/2021 Hemogloboin A1C 8.2% in office 08/02/2021 Hemoglobin A1c 7.8% Creatinine 1.01 GFR 102 AST 15 ALT 23 Microalbumin creatinine ratio 135 TSH 0.94 free T4 1.0 C-peptide 0.04 Cholesterol 159 triglycerides 35 HDL 67 LDL 85 WBC 4 hemoglobin 16 hematocrit 47 platelets 255 Assessment: Dx: 1. Type 1 diabetes mellitus with other specified complication (HCC) Comprehensive Metabolic Panel Hemoglobin A1c T4, Free TSH Type 1 diabetes, under good control Currently managed with: Humalog insulin 11-12units at breakfast,11-12 units at lunch, 11-12units at dinner Tresiba insulin 22 units at bedtime Current Hemoglobin A1C= 8.4% 08/29/2022 Lab Results Component Value Date HGBA1C 8.4 (H) 08/29/2022 HGBA1C 7.7 (H) 05/25/2022 HGBA1C 7.8 (H) 02/28/2022 Home blood sugar records: See scanned readings, average BG 216 per meter. 222 dexcom download (previous 2 weeks. ) Any episodes of hypoglycemia? 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 He was encouraged to get yearly eye examinations done to monitor for that, patient just got his insurance back but does have a plan to do that in the near future Nephropathy: Negative Creatinine 1.08 GFR 96 08/29/2022 Lab Results Component Value Date CREATININE 1.08 08/29/2022 Microlbumin/creat ratio: 11 08/29/2022 Is patient on CHING inhibitor or angiotensin II receptor michael? no Peripheral Neuropathy: Negative Denies symptoms associated with neuropathy (numbness and/or tingling) Autonomic Neuropathy: Negative Hypoglycemia unawareness. Senses low BG at 60mg/dl. Patient has a dexcom CGM . Hyperlipidemia: Negative Currently taking: No lipid lowering agents. LFT's WNL Hypertension: Negative . Currently taking: Patient on no antihypertensives BP: 128/77 Cardiac: Negative Experiencing chest pain No . Experiencing shortness of breath No History of No history of CAD Follows routinely with: Vascular: Positive History of DVT in arm after hit with softball - on short term Eliquis since discontinued Feet: 08/31/2022 Follows with Podiatry: No International Recruiter: History of foot ulceration: No History of amputation: No Thyroid: Lab Results Component Value Date TSH 1.00 08/29/2022 Negative Other: Plan: 1. Type 1 diabetes Humalog insulin: 11-12 units at breakfast; 11-12 units at lunch; 13-14 units at supper Lantus insulin: 26 units at bedtime Sliding scale: Use as directed with Humalog insulin before meals and at bedtime. 151-200: 2 units fast acting insulin 201-250: 4 units fast acting insulin 251-300: 6 units fast acting insulin 301-350: 8 units fast acting insulin 351-400: 10 units fast acting insulin above 400: 12 units fast acting insulin The above changes were made to the patient's current diabetic regimen. He was encouraged to follow a diabetic diet more closely. I did ask that he call us with BG readings for continued adjustments to his insulin as needed. He was encouraged to work on getting time off work to get omnipqualifyor training started so that he couldutilize that technology. 2. Education: Reviewed ABCs of diabetes management (respective goals in parentheses): A1C (7.0-8.0), blood pressure (<130/80), and cholesterol (LDL <100). 3. Compliance at present is estimated to be good. Efforts to improve compliance (if necessary) willbe directed at regular blood sugar monitorin times daily. 4. Follow up: 4 months 5. Record blood sugar readings as instructed. Call if BG consistently <70 or >250. [phone] 6. Bring blood sugar meter to follow up appointment. Orders Placed This Encounter Procedures Comprehensive Metabolic Panel Hemoglobin A1c T4, Free TSH Electronically signed by Sloane SHARP 08/31/2309:25 AM documented in this [id number] Instructions* Patient Instructions* Sloane Tomlin CNP - 05/25/2022 9:16 AM EDT Call the office with Blood sugar readings for dose adjustments to your insulin, if needed. The goal hemoglobin A1C is 7%-8%, closer to 7%, which is an average BG of 150 Please call the office sooner for episodes of hypoglycemia, BG < 70. Please remember to check your blood sugar 4x per day. Bring your blood sugar meter with you to appointments for review/download. It is important for us to prove you are checking your blood sugar, in order for us to renew/prescribe testing supplies. *Get updated labs done prior to your follow up appointment with us. If you do not get updated labs done, that are requested, please consider rescheduling your appointment until those are done * Call your insurance about getting an Omnipod insulin pump documented in this [id number] History of Present illness Narrative* Sloane Tomlin CNP - 05/25/2022 9:11 AM EDT Images from the original note were not included. Patient ID: Everardo Escobar is a 26 y.o. male 1995 Subjective: Everardo Escobar presents for follow up of Type 1 diabetes Patient was diagnosed with T1DM in 07/2019 HPI Mr. Escobar is a 26-year-old male patient presents to our office for follow-up of his type 1 diabetes. Patient reports he is been doing well and denies any significant issues today. Patient's last hemoglobin A1c 7.8%. He brought his blood sugar meter and the readings were reviewed and documented and scanned the patient's chart. He does have occasional high and low blood sugar. He works various shifts but is strenuous when working. He typically works dayshift. He denies retinopathy or peripheral neuropathy. He does have a history of microalbuminuria. He brings with him today a Dexcom CGM which he wants assistance with getting put on. In addition we are also working towards getting him on an OmniPod insulin pump, he has to call his insurance company to ensure coverage prior to us doing that. Patient reports typically episodes of hyperglycemia are secondary to missing Lantus insulin doses at night, he will occasionally forget a shot of insulin at lunchwhile working. He did not have any updated labs done prior to his visit with us today. Current Outpatient Medications Medication Sig Dispense Refill blood-glucose sensor (Dexcom G6 Sensor) Fauzia Use to check blood sugar 4-6 times per day . 10 each 3 insulin glargine (Lantus Solostar U-100 Insulin) 100 unit/mL (3 mL) InPn Inject 22 (twenty two) Units under the skin nightly . 15 mL 11 insulin lispro (HumaLOG KwikPen Insulin) 100 unit/mL InPn Use as directed TID plus sliding scale, approx 30 units per day . 15 mL 11 No current facility-administered medications for this visit. Review of Systems: Review of Systems Constitutional: Negative for activity change, appetite change, fatigue and unexpected weight change. Eyes: Negative for visual disturbance. Respiratory: Negative for chest tightness and shortness of breath. Cardiovascular: Negative for chest pain, palpitations and leg swelling. Gastrointestinal: Negative for abdominal pain, constipation, diarrhea, nausea and vomiting. Endocrine: Negative for polydipsia, polyphagia and polyuria. Genitourinary: Negative for difficulty urinating and frequency. Musculoskeletal: Negative for arthralgias and myalgias. Skin: Negative for rash and wound. Neurological: Negative for dizziness, weakness and numbness. Psychiatric/Behavioral: Negative for sleep disturbance. The patient is not nervous/anxious. The following portions of the patient's history were reviewed and updated as appropriate: allergies, current medications, past family history, past medical history, past social history, past surgicalhistory and problem list. Objective: BP 121/79 Pulse 71 Ht 6' Wt 98 kg (216 lb) BMI 29.29 kg/m Wt Readings from Last 3 Encounters: 05/25/22 98 kg (216 lb) 03/23/22 100.3 kg (221 lb 1.9 oz) 03/02/22 97.5 kg (215 lb) Physical Exam: Physical Exam General: alert, appears stated age and cooperative Eyes: conjunctivae/corneas clear. PERRL, EOM's intact. Neck: no adenopathy, supple, symmetrical, trachea midline. Thyroid: No thyromegaly appreciated Lung: clear to auscultation bilaterally Heart: regular rate and rhythm, S1, S2 normal, no murmur, click, rub or gallop Extremities: extremities normal, atraumatic, no cyanosis or edema Feet: Dry skin, Right Foot: warm, good capillary refill, normal DP and normal sensory exam Left Foot: warm, good capillary refill, normal DP and normal sensory exam. Monofilament exam not assessed, bilateral lower extremities. Neuro: normal without focal findings, mental status, speech normal, alert and oriented x3 and CECY Lab Review Date: No routine labs done for this visit. 02/28/2022 Hemoglobin A1c 7.8% Creatinine 0.9 GFR 108 AST 16 ALT 29 Cholesterol 167 triglycerides 66 HDL 59 LDL 95 TSH 0.49 Free T4 1.1 Microalbumin creatinine ratio 20 11/03/2021 Hemogloboin A1C 8.2% in office 08/02/2021 Hemoglobin A1c 7.8% Creatinine 1.01 GFR 102 AST 15 ALT 23 Microalbumin creatinine ratio 135 TSH 0.94 free T4 1.0 C-peptide 0.04 Cholesterol 159 triglycerides 35 HDL 67 LDL 85 WBC 4 hemoglobin 16 hematocrit 47 platelets 255 Assessment: Dx: 1. Type 1 diabetes mellitus with other specified complication (HCC) Comprehensive Metabolic Panel Hemoglobin A1c Lipid Panel Microalbumin/Creatinine Ratio, UR Random T4, Free TSH Type 1 diabetes, under good control Currently managed with: Humalog insulin 11-12units at breakfast,11-12 units at lunch, 11-12units at dinner Tresiba insulin 22 units at bedtime Current Hemoglobin A1C= Lab Results Component Value Date HGBA1C 7.7 (H) 05/25/2022 HGBA1C 7.8 (H) 02/28/2022 HGBA1C 8.2 (A) 11/03/2021 Home blood sugar records: See scanned readings, average BG 238 per meter. Any episodes of hypoglycemia? 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 He was encouraged to get yearly eye examinations done to monitor for that, patient just got his insurance back but does have a plan to do that in the near future Nephropathy: Negative Lab Results Component Value Date CREATININE 0.96 05/25/2022 Microlbumin/creat ratio: 20 02/28/2022 Is patient on CHING inhibitor or angiotensin II receptor michael? no Peripheral Neuropathy: Negative Denies symptoms associated with neuropathy (numbness and/or tingling) Autonomic Neuropathy: Negative Hypoglycemia unawareness. Senses low BG at 60mg/dl. Patient has a dexcom CGM which he is going to start using today. Hyperlipidemia: Negative Currently taking: No lipid lowering agents. LFT's WNL Hypertension: Negative . Currently taking: Patient on no antihypertensives BP: 121/79 Cardiac: Negative Experiencing chest pain No . Experiencing shortness of breath No History of No history of CAD Follows routinely with: Vascular: Positive History of DVT in arm after hit with softball - on short term Eliquis since discontinued Feet: 05/25/2022 Follows with Podiatry: No International Recruiter: History of foot ulceration: No History of amputation: No Thyroid: Lab Results Component Value Date TSH 0.23 (L) 03/23/2022 Negative Other: Plan: 1. Type 1 diabetes Humalog insulin: 11-12 units at breakfast; 11-12 units at lunch; 11-12 units at supper Lantus insulin: 22 units at bedtime Sliding scale: Use as directed with Humalog insulin before meals and at bedtime. 151-200: 1 units fast acting insulin 201-250: 2 units fast acting insulin 251-300: 3 units fast acting insulin 301-350: 4 units fast acting insulin 351-400: 5 units fast acting insulin above 400: 6 units fast acting insulin No changes were made to the patient's current diabetic regimen. Carlie our CABLE OPERATOR will help get the patient on his Dexcom. The patient was instructed to make sure that an OmniPod insulin pump is covered byhis insurance, and if so we can place an order for him to get that started. Once he receives that he was instructed to call us to get some pump training initiated. 2. Education: Reviewed ABCs of diabetes management (respective goals in parentheses): A1C (7.0-8.0), blood pressure (<130/80), and cholesterol (LDL <100). 3. Compliance at present is estimated to be good. Efforts to improve compliance (if necessary) willbe directed at regular blood sugar monitorin times daily. 4. Follow up: 3 months 5. Record blood sugar readings as instructed. Call if BG consistently <70 or >250. [phone] 6. Bring blood sugar meter to follow up appointment. Orders Placed This Encounter Procedures Comprehensive Metabolic Panel Hemoglobin A1c Lipid Panel Microalbumin/Creatinine Ratio, UR Random T4, Free TSH Electronically signed by Sloane SHARP 05/26/2210:25 AM documented in this [id number] Instructions* Patient Instructions* Sloane Tomlin CNP - 11/03/2021 8:23 AM EDT Humalog insulin: 4 units at breakfast; 4 units at lunch; 11-12 units at supper Lantus insulin: 22 units at bedtime Sliding scale: Use as directed with Humalog insulin before meals and at bedtime. 151-200: 1 units fast acting insulin 201-250: 2 units fast acting insulin 251-300: 3 units fast acting insulin 301-350: 4 units fast acting insulin 351-400: 5 units fast acting insulin above 400: 6 units fast acting insulin Call the office with Blood sugar readings in 1 week for dose adjustments to your insulin, if needed. The goal hemoglobin A1C is 7%-8%, closer to 7%, which is an average BG of 150 Please call the office sooner for episodes of hypoglycemia, BG < 70. Please remember to check your blood sugar 4x per day. Bring your blood sugar meter with you to appointments for review/download. It is important for us to prove you are checking your blood sugar, in order for us to renew/prescribe testing supplies. Make sure to start taking your Lisinopril!!!! Get an updated eye examination MAURICIO documented in this [id number] History of Present illness Narrative* Sloane Tomlin CNP - 11/03/2021 8:15 AM EDT Images from the original note were not included. Patient ID: Everardo Escobar is a 26 y.o. male 1995 Subjective: Everardo Escobar presents for follow up of Type 1 diabetes Patient was diagnosed with T1DM in 07/2019 HPI Mr. Escobar is a 26-year-old male patient presents to our office for follow-up of his type 1 diabetes. Patient reports he is been doing well and denies any significant issues today. He brought his blood sugar meter and the readings were reviewed and documented and scanned the patient's chart. The patient is still without insurance but states he should be getting on his plan at work in the near future. Patient denies any significant episodes of hypoglycemia since his last visit with us. He denies retinopathy or peripheral neuropathy. He does have a history of microalbuminuria. At his last visit with us he was to start taking lisinopril 2.5 mg oral daily. He did not do that, as he reports hedid not get to the pharmacy to get that prescription filled. The patient also has not had an updated eye exam, despite being encouraged to do so at his last visit with us. Patient did not have any updated labs done prior to his visit today. Current Outpatient Medications Medication Sig Dispense Refill insulin lispro (HumaLOG KwikPen Insulin) 100 unit/mL InPn Take 10 units plus sliding scale 3 times a day before meals for maximum daily total of 45 u/day . 15 mL 11 insulin glargine (Lantus Solostar U-100 Insulin) 100 unit/mL (3 mL) InPn Inject 22 (twenty two) Units under the skin nightly . 6 mL 3 lisinopriL (PRINIVIL,ZESTRIL) 2.5 MG tablet Take 1 (one) tablet (2.5 mg total) by mouth daily . 90 tablet 3 No current facility-administered medications for this visit. Review of Systems: Review of Systems Constitutional: Negative for activity change, appetite change, fatigue and unexpected weight change. Eyes: Negative for visual disturbance. Respiratory: Negative for chest tightness and shortness of breath. Cardiovascular: Negative for chest pain, palpitations and leg swelling. Gastrointestinal: Negative for abdominal pain, constipation, diarrhea, nausea and vomiting. Endocrine: Negative for polydipsia, polyphagia and polyuria. Genitourinary: Negative for difficulty urinating and frequency. Musculoskeletal: Negative for arthralgias and myalgias. Skin: Negative for rash and wound. Neurological: Negative for dizziness, weakness and numbness. Psychiatric/Behavioral: Negative for sleep disturbance. The patient is not nervous/anxious. The following portions of the patient's history were reviewed and updated as appropriate: allergies, current medications, past family history, past medical history, past social history, past surgicalhistory and problem list. Objective: BP 122/79 Pulse 67 Ht 6' Wt 100.7 kg (222 lb) BMI 30.11 kg/m Wt Readings from Last 3 Encounters: 11/03/21 100.7 kg (222 lb) 08/04/21 96.6 kg (213 lb) 07/04/21 95.7 kg (211 lb) Physical Exam: Physical Exam General: alert, appears stated age and cooperative Eyes: conjunctivae/corneas clear. PERRL, EOM's intact. Neck: no adenopathy, supple, symmetrical, trachea midline. Thyroid: No thyromegaly appreciated Lung: clear to auscultation bilaterally Heart: regular rate and rhythm, S1, S2 normal, no murmur, click, rub or gallop Extremities: extremities normal, atraumatic, no cyanosis or edema Feet: Dry skin, Right Foot: warm, good capillary refill, normal DP and normal sensory exam Left Foot: warm, good capillary refill, normal DP and normal sensory exam. Monofilament exam not assessed, bilateral lower extremities. Neuro: normal without focal findings, mental status, speech normal, alert and oriented x3 and CECY Lab Review Date: 11/03/2021 Hemogloboin A1C 8.2% in office 08/02/2021 Hemoglobin A1c 7.8% Creatinine 1.01 GFR 102 AST 15 ALT 23 Microalbumin creatinine ratio 135 TSH 0.94 free T4 1.0 C-peptide 0.04 Cholesterol 159 triglycerides 35 HDL 67 LDL 85 WBC 4 hemoglobin 16 hematocrit 47 platelets 255 Assessment: Dx: 1. 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) POC Hemoglobin A1C Comprehensive Metabolic Panel Hemoglobin A1c Lipid Panel Microalbumin/Creatinine Ratio, UR Random T4, Free TSH Type 1 diabetes, under good control Currently managed with: Humalog insulin 4units at breakfast, 4 units at lunch, 11-12units at dinner Tresiba insulin 22 units at bedtime Current Hemoglobin A1C= 8.2% in office today Lab Results Component Value Date HGBA1C 8.2 (A) 11/03/2021 HGBA1C 7.8 (H) 08/02/2021 HGBA1C 12.0 (H) 04/24/2021 Home blood sugar records: See scanned readings, average BG 187 per meter. Any episodes of hypoglycemia? Yes, but not often NOTES: After review of blood sugars it does not appear that he is having any consistent episodes ofhypo or hyperglycemia at any point that would warrant a change. He does occasionally have blood sugars in the 400, which he feels is probably secondary to dietary choices. 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 He was encouraged to get yearly eye examinations done to monitor for that Nephropathy: Positive Lab Results Component Value Date CREATININE 1.01 08/02/2021 Microlbumin/creat ratio: 135 Is patient on CHING inhibitor or angiotensin II receptor michael? no Plan: patient reports he never went to the pharmacy to get that medication picked up. Will start after visit today. Peripheral Neuropathy: Negative Denies symptoms associated with neuropathy (numbness and/or tingling) Autonomic Neuropathy: Negative Hypoglycemia unawareness. Senses low BG at 60mg/dl. Hyperlipidemia: Negative Currently taking: No lipid lowering agents. LFT's WNL Hypertension: Negative . Currently taking: Patient on no antihypertensives BP: 122/79 Cardiac: Negative Experiencing chest pain No . Experiencing shortness of breath No History of No history of CAD Follows routinely with: Vascular: Positive History of DVT in arm after hit with softball - on short term Eliquis Feet: 11/03/2021 Follows with Podiatry: No International Recruiter: History of foot ulceration: No History of amputation: No Thyroid: Lab Results Component Value Date TSH 0.94 08/02/2021 Negative Other: Plan: 1. Type 1 diabetes Humalog insulin: 4 units at breakfast; 4 units at lunch; 11-12 units at supper Lantus insulin: 22 units at bedtime Sliding scale: Use as directed with Humalog insulin before meals and at bedtime. 151-200: 1 units fast acting insulin 201-250: 2 units fast acting insulin 251-300: 3 units fast acting insulin 301-350: 4 units fast acting insulin 351-400: 5 units fast acting insulin above 400: 6 units fast acting insulin No changes were made to the patient's current diabetic regimen. After review of blood sugars it does not appear that he is having any consistent episodes of hypo or hyperglycemia at any point that would warrant a change. He does occasionally have blood sugars in the 400, which he feels is probably secondary to dietary choices. He was given a sample of Humalog today, per his request. He still waiting to get on his insurance plan through his work. He was strongly encouraged again to get an updated eye exam. He will also get updated labs done prior to his next visit with us. The patient was reminded his goal hemoglobin A1c is around 7%. He was asked to call the office with any issues prior to his next visit with us. 2. Education: Reviewed ABCs of diabetes management (respective goals in parentheses): A1C (7.0-8.0), blood pressure (<130/80), and cholesterol (LDL <100). 3. Compliance at present is estimated to be good. Efforts to improve compliance (if necessary) willbe directed at regular blood sugar monitorin times daily. 4. Follow up: 3 months 5. Record blood sugar readings as instructed. Call if BG consistently <70 or >250. [phone] 6. Bring blood sugar meter to follow up appointment. Orders Placed This Encounter Procedures Comprehensive Metabolic Panel Hemoglobin A1c Lipid Panel Microalbumin/Creatinine Ratio, UR Random T4, Free TSH POC Hemoglobin A1C Electronically signed by Sloane SHARP 11/03/2209:25 AM documented in this [id number] History of Present illness Narrative* Og Godinez PA-C - 05/21/2021 3:06 PM EDT Images from the original note were not included. Patient ID: Everardo Escobar is a 25 y.o. male 1995 Subjective: Everardo Escobar presents for follow up of Type 1 diabetes Patient was diagnosed with T1DM in 07/2019 HPI Patient is a 25-year-old male with a 2-year history of type I DM. Today is his first outpatient evaluation in our office. He was seen briefly by Dr. Rojas while admitted to [facility] where he spent a short admission for treatment of DKA. Prior to that admission he was managed with twice daily 70/30 insulin with poor control. 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 He has been taking Humalog 10 units premeal as well as Lantus 20 units nightly. He has been checking blood sugars frequently, at least 4 times daily. Glucometer was downloaded and reviewed today. Overall glucoses are better controlled, but is having variable readings with frequent hyper and hypoglycemia. Currently managed with: No oral hypoglycemic medications Humalog insulin: 10 units at breakfast; 10 units at lunch; 10 units at supper Lantus insulin: 20 units at bedtime Current monitoring regimen: SMBG 4 times daily Social History: Weight trend: is stable Current diet: carb controlled, avoiding concentrated sugars Current exercise: not asked Tobacco/Alcohol Use: Social alcohol use Current Outpatient Medications Medication Sig Dispense Refill insulin glargine (Lantus Solostar U-100 Insulin) 100 unit/mL (3 mL) InPn Inject 20 (twenty) Units under the skin nightly . 6 mL 3 insulin lispro (HumaLOG KwikPen Insulin) 100 unit/mL InPn Take 10 units plus sliding scale 3 times a day before meals . 15 mL 3 rivaroxaban (Xarelto) 20 mg Tab Take 1 (one) tablet (20 mg total) by mouth daily . (Patient not taking: Reported on 05/21/2021 .) 30 tablet 1 No current facility-administered medications for this visit. Review of Systems: Review of Systems Constitutional: Negative for activity change, appetite change, fatigue and unexpected weight change. Eyes: Negative for visual disturbance. Respiratory: Negative for chest tightness and shortness of breath. Cardiovascular: Negative for chest pain, palpitations and leg swelling. Gastrointestinal: Negative for abdominal pain, constipation, diarrhea, nausea and vomiting. Endocrine: Negative for polydipsia, polyphagia and polyuria. Genitourinary: Negative for difficulty urinating and frequency. Musculoskeletal: Negative for arthralgias and myalgias. Skin: Negative for rash and wound. Neurological: Negative for dizziness, weakness and numbness. Psychiatric/Behavioral: Negative for sleep disturbance. The patient is not nervous/anxious. The following portions of the patient's history were reviewed and updated as appropriate: allergies, current medications, past family history, past medical history, past social history, past surgicalhistory and problem list. Objective: BP 137/81 Pulse 94 Ht 6' Wt 96.6 kg (213 lb) BMI 28.89 kg/m Wt Readings from Last 3 Encounters: 05/21/21 96.6 kg (213 lb) 04/25/21 100.3 kg (221 lb 1.9 oz) 02/26/21 91.4 kg (201 lb 9.6 oz) Physical Exam: Physical Exam General: alert, appears stated age and cooperative Eyes: conjunctivae/corneas clear. PERRL, EOM's intact. Neck: no adenopathy, supple, symmetrical, trachea midline. Thyroid: No thyromegaly appreciated Lung: clear to auscultation bilaterally Heart: regular rate and rhythm, S1, S2 normal, no murmur, click, rub or gallop Extremities: extremities normal, atraumatic, no cyanosis or edema Feet: Dry skin, Right Foot: warm, good capillary refill, normal DP and normal sensory exam Left Foot: warm, good capillary refill, normal DP and normal sensory exam. Monofilament exam not assessed, bilateral lower extremities. Neuro: normal without focal findings, mental status, speech normal, alert and oriented x3 and CECY Lab Review Date: Assessment: Dx: No diagnosis found. Type 1 diabetes, under inadequate control Currently managed with: Humalog and Lantus insulin Current Hemoglobin A1C= Lab Results Component Value Date HGBA1C 12.0 (H) 04/24/2021 HGBA1C 10.4 (H) 02/19/2021 Home blood sugar records: See scanned readings Fasting BG: Pre-lunch BG: Pre-supper BG: Bedtime BG: Any episodes of hypoglycemia? yes -several times weekly NOTES: DM Complication Review: Retinopathy: Negative Exam within last 12 months: no Ship Captain/Respite Provider: Other Ophthalmologic Conditions: None known Nephropathy: Negative Creat: Lab Results Component Value Date CREATININE 0.99 04/25/2021 Microlbumin/creat ratio: No results found for: EXTMICROALBC Is patient on CHING inhibitor or angiotensin II receptor michael? no Peripheral Neuropathy: Negative Denies symptoms associated with neuropathy (numbness and/or tingling) Autonomic Neuropathy: Negative Hypoglycemia unawareness. Senses low BG at 70mg/dl. Hyperlipidemia: Negative Currently taking: No lipid lowering agents. LFT's WNL Hypertension: Negative . Currently taking: Patient on no antihypertensives BP: 137/81 Cardiac: Negative Experiencing chest pain No . Experiencing shortness of breath No History of No history of CAD Follows routinely with: Vascular: Positive History of DVT in arm after hit with softball - on short term Eliquis Feet Follows with Podiatry: No International Recruiter: History of foot ulceration: No History of amputation: No Thyroid: No results found for: TSH, N0XPCKG, C7JOIEB, THYROIDAB Negative Other: Plan: 1. Type 1 diabetes Humalog insulin: 5-12 units at breakfast; 5-12 units at lunch; 5-12 units at supper Lantus insulin: 24 units at bedtime Sliding scale: Use as directed with Humalog insulin before meals and at bedtime. 151-200: 1 units fast acting insulin 201-250: 2 units fast acting insulin 251-300: 3 units fast acting insulin 301-350: 4 units fast acting insulin 351-400: 5 units fast acting insulin above 400: 6 units fast acting insulin Start practicing carb counting. If <30g take 5 units, 30-60g take 8 units, >60g take 12 units. When comfortable, use a 1:8 insulin carb ratio for meal doses. Lantus increased as above Continue checking BG at least QID Referral to Diabetes Education classes 2. Education: Reviewed ABCs of diabetes management (respective goals in parentheses): A1C (7.0-8.0), blood pressure (<130/80), and cholesterol (LDL <100). 3. Compliance at present is estimated to be good. Efforts to improve compliance (if necessary) willbe directed at regular blood sugar monitorin times daily. 4. Follow up: 1 months 5. Record blood sugar readings as instructed. Call if BG consistently <70 or >250. [phone] 6. Bring blood sugar meter to follow up appointment. No orders of the defined types were placed in this encounter. Electronically signed by: Og Godinez PA-C, [facility] documented in this [id number] History of Present illness Narrative* Ashvin Sanchez LISW - 02/26/2021 4:39 PM EDT Received referral from [facility] [employer] regarding new pt without insurance and in need for Anticoagulationmedication. CONSTRUCTION CODE ADMINISTRATOR met with pt, he is unable to work due to weight restriction on lifting with affected arm. Pt has not worked for approx. A month. Pt currently has no income and no insurance. Pt lives with his brother. Educated on [employer] FA through [place] ; application provided-- encouraged pt to complete and mail to address indicated on application or call financial assistance dept -- number provided. Educated pt on Medicaid application process; application provided-- encouraged pt to complete and submit to [facility] [place] [employer]. Educated pt on Eliquis pt assistance program; application provided by GAR[employer] José and requested pt return by 03/07/21 . Pt verbalized understanding. CONSTRUCTION CODE ADMINISTRATOR contact information provided and encouraged pt to contact CONSTRUCTION CODE ADMINISTRATOR if further questions/concners arise. Pt is a type 1 diabetic and buys his insulin at [facility] for $26/vial. documented in this [id number] Instructions* Patient Instructions* Adali Isaacs CNP - 02/26/2021 3:32 PM EDT Start Eliquis 10 mg(two 5 mg tablets) twice daily for 7 days Then, Eliquis 5 mg (one tablet) twice daily Follow up in Early April with doppler ultrasound Follow up in 10 weeks documented in this [id number] History of Present illness Narrative* Adali Isaacs CNP - 02/26/2021 2:22 PM EDT Hematology/Oncology Clinic Consult Note Reason for Consult: Right upper arm/subclavian vein DVT Referring Physician: Dr. Vargas PCP: Dr. Vargas History of Present Illness History of Present Illness: Mr. Escobar is a pleasant 25-year-old male with a past medical history of pyloric stenosis and diabetes. He is referred from his primary care provider Dr. Vargasfor recommendations regarding his new acute DVT in the subclavian vein of his right upper extremity. Patient was seen in the emergency department on 01/22/2021 for increasing redness and swelling of hisright arm which he noted when playing softball the previous day. While throwing that day he noticedincreased tightness, pressure, sodium and, and erythema to his right arm. He specifically noted hisright bicep muscle is a focus of pain and tightness and wondered whether he had a muscle tear. He denies any specific accident or injury, reported he did not do any unusual movements during the softball game. He also stated he did not sustain any type of puncture, abrasion or laceration to the skin. He denies any issues with his arm prior to his softball game. He had a CT of his right upper extremity which revealed no acute findings, recommended a Doppler ultrasound. D-dimer was negative at 0.34. He was given a single dose of Lovenox and orders were placedfor right upper arm duplex Doppler. On 01/23/2021, Doppler revealed an acute DVT in the subclavian vein in his right upper extremity. He was given a Xarelto starter pack. Unfortunately, has now lost his job, and is unable to afford his medication. He has not had a dose of anticoagulation for 1 week. 01/22/2021 CT upper extremity right soft tissue with contrast No obvious etiology for right-sided arm swelling and discoloration reported in history. Consider upper extremity DVT ultrasound for further evaluation. 01/23/2021 right arm duplex doppler Conclusions * Right. * Acute deep vein thrombosis in the subclavian vein of the right upper extremity. * No evidence of superficial vein thrombosis in the right upper extremity. Past Medical and Surgical History Past Medical History: Diagnosis Date Deep vein thrombosis (HCC) 01/23/2021 right subclavian vein Diabetes mellitus (HCC) 2019 Pyloric stenosis Past Surgical History: Procedure Laterality Date CYST REMOVAL Allergies and Medications No Known Allergies Current Outpatient Medications Medication Sig Dispense Refill insulin NPH-insulin regular 70/30 (HUMULIN 70/30) 100 unit/mL (70-30) injection Inject 15 (fifteen)Units under the skin 2 (two) times a day before meals . 9 mL 2 rivaroxaban (Xarelto) 20 mg Tab Take 1 (one) tablet (20 mg total) by mouth daily . (Patient not taking: Reported on 02/26/2021 .) 30 tablet 1 No current facility-administered medications for this visit. Family and Social History Family History Problem Relation Age of Onset Hypertension Mother Hyperthyroidism Father No Known Problems Sister No Known Problems Brother Social History Tobacco Use Smoking status: Current Some Day Smoker Packs/day: 0.30 Types: Cigarettes Smokeless tobacco: Current User Types: Chew Vaping Use Vaping Use: Never used Substance Use Topics Alcohol use: Yes Comment: Social Drug use: Never Social History: Patient is single, he resides with his brother Employment: He was previously employed at [employer] Tobacco use: He does currently smoke and sometimes chews tobacco. Alcohol use: He is a social drinker Illicit drug use: Denies Prescription drug abuse: Denies Review of Systems Review of Systems: Review of Systems Constitutional: Negative for chills, fatigue, fever and unexpected weight change. HENT: Negative for ear pain and trouble swallowing. Eyes: Negative for pain and discharge. Respiratory: Negative for cough, shortness of breath and wheezing. Cardiovascular: Negative for chest pain, palpitations and leg swelling. Gastrointestinal: Negative for abdominal pain, constipation, diarrhea, nausea and vomiting. Endocrine: Negative for cold intolerance and heat intolerance. Genitourinary: Negative for difficulty urinating and dysuria. Musculoskeletal: Negative for arthralgias, back pain and gait problem. Skin: Negative for rash. Allergic/Immunologic: Negative for environmental allergies and food allergies. Neurological: Negative for dizziness, weakness and headaches. Hematological: Negative for adenopathy. Does not bruise/bleed easily. Psychiatric/Behavioral: Negative for confusion and sleep disturbance. Physical Exam Physical Exam: PACU Vitals 02/26/21 1436 BP: 112/64 Pulse: 67 Temp: 98.2 F (36.8 C) SpO2: 95% ECOG 0 asymptomatic. Fully active, able to carry on all predisease activities without restriction. Physical Exam Vitals and nursing note reviewed. Constitutional: General: He is not in acute distress. Appearance: He is well-developed. HENT: Head: Normocephalic and atraumatic. Eyes: Pupils: Pupils are equal, round, and reactive to light. Cardiovascular: Rate and Rhythm: Normal rate and regular rhythm. Heart sounds: Normal heart sounds. No murmur heard. Pulmonary: Effort: Pulmonary effort is normal. Breath sounds: Normal breath sounds. No wheezing or rales. Abdominal: General: Bowel sounds are normal. Palpations: Abdomen is soft. There is no hepatomegaly, splenomegaly or mass. Tenderness: There is no abdominal tenderness. There is no guarding. Musculoskeletal: Cervical back: Normal range of motion and neck supple. Lymphadenopathy: Cervical: No cervical adenopathy. Skin: General: Skin is warm and dry. Findings: No erythema or rash. Neurological: Mental Status: He is alert and oriented to person, place, and time. Psychiatric: Behavior: Behavior normal. Thought Content: Thought content normal. Judgment: Judgment normal. Assessment and Plan Assessment: Mr. Escobar is a pleasant 25-year-old male with a past medical history of pyloric stenosis and diabetes. He is referred from his primary care provider Dr. Vargas for recommendations regarding his new acute DVT in the subclavian vein of his right upper extremity. Patient was seen in the emergency department on 01/22/2021 for increasing redness and swelling of hisright arm which he noted when playing softball the previous day. While throwing that day he noticedincreased tightness, pressure, sodium and, and erythema to his right arm. He specifically noted hisright bicep muscle is a focus of pain and tightness and wondered whether he had a muscle tear. He denies any specific accident or injury, reported he did not do any unusual movements during the softball game. He also stated he did not sustain any type of puncture, abrasion or laceration to the skin. He denies any issues with his arm prior to his softball game. He had a CT of his right upper extremity which revealed no acute findings, recommended a Doppler ultrasound. D-dimer was negative at 0.34. He was given a single dose of Lovenox and orders were placedfor right upper arm duplex Doppler. On 01/23/2021, Doppler revealed an acute DVT in the subclavian vein in his right upper extremity. He was given a Xarelto starter pack. Unfortunately, has now lost his job, and is unable to afford his medication. He has not had a dose of anticoagulation for 1 week. 1. Acute deep vein thrombosis (DVT) of right upper extremity, unspecified vein -We have provided the patient with Eliquis samples and instructions for use Eliquis 10 mg (two 5 mg tablets) Twice daily for 7 days, then 5 mg (1 tablet) twice daily -I also gave him a 30-day free Eliquis card -Our nurse is working on assistance through the Eliquis assistance program -We will schedule ultrasound of right upper arm in April 2021, 3 months after beginning his anticoagulation -Due to financial constraints, we will not do additional lab work at this time -Follow-up in April 2021 for results of ultrasound and further recommendations for anticoagulation. This case was discussed/reviewed with Dr. Rebekah Sanchez Education Provided Education/Instructions given to: (x) Patient (_) Spouse (_) Parent (_) Other Barriers to Learning: (x) None (_) Yes (identify):_ Content: (x) Refer to note above (_)Other (identify):_ Evaluation/Outcome: (x) Verbalized understanding (_) Demonstrated understanding (_) Other:_ SANAZ Calhoun- BC documented in this [id number] Miscellaneous Notes* Assessment & Plan Note - America Granados MD - 02/05/2021 9:13 PM EDT Associated Problem(s): Type 1 diabetes mellitus without complication (HCC) Diabetes type 1 uncontrolled Unknown last A1c although random sugar on BMP 2 weeks ago was 349 Currently on Humulin 70/30 10 units twice daily with meals Reports AM CBGs are around 200s Questionable compliance Plan Increase Humulin 70/30 to 13 units twice a day with meals Routine labs ordered including A1c and lipid profile Ophthalmology evaluation not due until 06/2024 Follow-up in 2 weeks with CBG log * Assessment & Plan Note - America Granados MD - 02/05/2021 9:11 PM EDT Associated Problem(s): Acute deep vein thrombosis (DVT) of right upper extremity (HCC) ? Unprovoked DVT Plan Continue Xarelto Heme-onc referral placed to evaluate duration of anticoagulation Smoking cessation advised documented in this [id number] History of Present illness Narrative* America Granados MD - 02/05/2021 11:07 AM EDT [facility] [address] [place] [id number] HPI: Everardo Escobar is a very pleasant 25 y.o. year old male seen in the office today for a transitional visit after ED evaluation on 01/22/21 for right upper extremity swelling. Patient reports previous his ED visit he was playing softball and had a direct trauma to his right shoulder with the ball. Subsequently, he felt right shoulder started to get swollen and painful and decided to go to the emergency department to be evaluated on the next day. He provided a different story in the ED where he reported did not recall any trauma to the area andthat the swelling started suddenly overnight. Initial labs and imaging reviewed. Labs are remarkable for random blood sugars 349. CT right upper extremity showed no abnormalities but right upper extremity Doppler showed acute deep vein thrombosis in the subclavian vein. Patient was subsequently discharged home on Xarelto starting pack which he started on 01/24/2021. He reports swelling has improved and he recovered for a fullrange of motion on his right upper extremity. He denies history of DVT in the past, no family history of blood clots or blood disorder. He is a current smoker since age 12 and has smoked around 3 packs/day for the last 13 years ([id number] history). He states that he cut down to 1 pack/day after his DVT was diagnosed. He also has type 1 diabetes diagnosed in June [address] Rodriguez at [facility] and takes NPH insulin twice a day with meals. He states he has not followed with his previous PCP for over a year and he finds his NPH insulin ???" [id number] at [facility]". Very poor historian. This is a transitional visit, healthcare maintenance will be addressed in the next visit. The following portions of the patient's history were reviewed and updated as appropriate: allergies, current medications, past family history, past medical history, past social history, past surgicalhistory, and problem list. Patient Active Problem List Diagnosis Date Noted Type 1 diabetes mellitus without complication (HCC) 02/05/2021 Acute deep vein thrombosis (DVT) of right upper extremity (HCC) 02/05/2021 Past Medical History: Diagnosis Date Diabetes mellitus (HCC) Pyloric stenosis Past Surgical History: Procedure Laterality Date CYST REMOVAL No Known Allergies Patient's Medications New Prescriptions RIVAROXABAN (XARELTO) 20 MG TAB Take 1 (one) tablet (20 mg total) by mouth daily . Previous Medications No medications on file Modified Medications Modified Medication Previous Medication INSULIN NPH-INSULIN REGULAR 70/30 (HUMULIN 70/30) 100 UNIT/ML (70-30) INJECTION insulin NPH-insulinregular 70/30 (HUMULIN 70/30) 100 unit/mL (70-30) injection Inject 13 (thirteen) Units under the skin 2 (two) times a day before meals . Inject under the skin 2 (two) times a day before meals 10 units 2(two) times a day before Meals . Discontinued Medications RIVAROXABAN (XARELTO DVT-PE TREAT 30D START) 15 MG (42)- 20 MG (9) DSPK Take 1 tablet (15mg) by mouth 2 (two) times a day for 21 days. Then take 1 tablet (20mg) by mouth daily for 9 days . Depression Screening 02/05/2021 Little interest or pleasure in doing things 0 Feeling down, depressed, or hopeless 0 PHQ-2 Total Score 0 Trouble falling or staying asleep, or sleeping too much 3 Feeling tired or having little energy 0 Poor appetite or overeating 0 Feeling bad about yourself - or that you are a failure or have let yourself or your family down 0 Trouble concentrating on things, such as reading the newspaper or watching television 0 Moving or speaking so slowly that other people could have noticed. Or the opposite - being so fidgety or restless that you have been moving around a lot more than usual 0 Thoughts that you would be better off , or of hurting yourself in some way 0 PHQ-9 Total Score 3 If you checked off any problems, how difficult have these problems made it for you to do your work,take care of things at home, or get along with other people? Not difficult at all Review of Systems All other systems reviewed and are negative. Objective Physical Exam Vitals and nursing note reviewed. Constitutional: Appearance: Normal appearance. Cardiovascular: Rate and Rhythm: Normal rate. Pulmonary: Effort: Pulmonary effort is normal. Breath sounds: Normal breath sounds. Musculoskeletal: General: Normal range of motion. Comments: Very mild right shoulder edema, patient states is improving/almost resolved Skin: General: Skin is warm and dry. Neurological: General: No focal deficit present. Mental Status: He is alert and oriented to person, place, and time. Assessment/Plan: Problem List Items Addressed This Visit Endocrine Type 1 diabetes mellitus without complication (HCC) - Primary Diabetes type 1 uncontrolled Unknown last A1c although random sugar on BMP 2 weeks ago was 349 Currently on Humulin 70/30 10 units twice daily with meals Reports AM CBGs are around 200s Questionable compliance Plan Increase Humulin 70/30 to 13 units twice a day with meals Routine labs ordered including A1c and lipid profile Ophthalmology evaluation not due until 06/2024 Follow-up in 2 weeks with CBG log Relevant Medications insulin NPH-insulin regular 70/30 (HUMULIN 70/30) 100 unit/mL (70-30) injection Other Relevant Orders Hemoglobin A1c Lipid Panel Microalbumin/Creatinine Ratio, UR Random Cardiovascular and Mediastinum Acute deep vein thrombosis (DVT) of right upper extremity (HCC) ? Unprovoked DVT Plan Continue Xarelto Heme-onc referral placed to evaluate duration of anticoagulation Smoking cessation advised Relevant Medications rivaroxaban (Xarelto) 20 mg Tab Other Relevant Orders Ambulatory referral to Hematology / Oncology Other Visit Diagnoses Encounter for hepatitis C screening test for low risk patient Relevant Orders Hepatitis C Antibody Screening for HIV without presence of risk factors Relevant Orders HIV 1/2 Screen (4th Generation) For any new medications prescribed today, patient was educated about indications for the medication, how to take the medication and potential side effects of the medications. Follow Up Ordered: Return in about 2 weeks (around 02/19/2021) for CBG log, lab results. America Vargas MD documented in this [id number] Emergency department Note* Tracee Voss MD - 01/23/2021 10:24 PM EDT [facility] ED Attending Note: NAME: Everardo Escobar 25 y.o. CSN: [id number] PCP: Physician No History: Chief Complaint: Arm Pain HPI: The history was obtained from the patient. Everardo is a 25 y.o. male who presents with a chief complaint of Arm Pain. Patient presents status post Doppler ultrasound confirmed DVT of right upper extremity today. Patient is unable to get his Xarelto prescription till tomorrow from the [facility]. He presents tonight because he was told that he needs his medication. Patient states the arm is occasionally painful. He denies any shortness of breath. There is no fever chills nausea vomiting or any other related symptoms. PMHx: Past Medical History: Diagnosis Date Diabetes mellitus (HCC) Pyloric stenosis PMSx: Past Surgical History: Procedure Laterality Date CYST REMOVAL FAM. Hx: No family history on file. SOC. Hx: Social History Socioeconomic History Marital status: Single Spouse name: Not on file Number of children: Not on file Years of education: Not on file Highest education level: Not on file Occupational History Not on file Tobacco Use Smoking status: Current Some Day Smoker Vaping Use Vaping Use: Never used Substance and Sexual Activity Alcohol use: Not Currently Drug use: Never Sexual activity: Not on file Other Topics Concern Not on file Social History Narrative Not on file Social Determinants of Health Financial Resource Strain: Difficulty of Paying Living Expenses: Food Insecurity: Worried About Running Out of Food in the Last Year: Ran Out of Food in the Last Year: Transportation Needs: Lack of Transportation (Medical): Lack of Transportation (Non-Medical): Physical Activity: Days of Exercise per Week: Minutes of Exercise per Session: Stress: Feeling of Stress : Social Connections: Frequency of Communication with Friends and Family: Frequency of Social Gatherings with Friends and Family: Attends [employer] Services: Active Member of Clubs or Organizations: Attends Club or Organization Meetings: Marital Status: MEDs: Previous Medications Medication Sig insulin NPH-insulin regular 70/30 (HUMULIN 70/30) 100 unit/mL (70-30) injection Inject under the skin 2 (two) times a day before meals . rivaroxaban (Xarelto DVT-PE Treat 30d Start) 15 mg (42)- 20 mg (9) DsPk Take 1 tablet (15mg) by mouth 2 (two) times a day for 21 days. Then take 1 tablet (20mg) by mouth daily for 9 days . ALL: No Known Allergies ROS: Review of Systems Constitutional: Negative for chills and fever. HENT: Negative for congestion. Eyes: Negative for visual disturbance. Respiratory: Negative for cough, chest tightness and shortness of breath. Cardiovascular: Negative for chest pain and leg swelling. Gastrointestinal: Negative for abdominal pain, diarrhea, nausea and vomiting. Genitourinary: Negative for dysuria and frequency. Musculoskeletal: Negative for arthralgias. Right upper extremity edema Skin: Negative. Negative for rash. Neurological: Negative for dizziness and weakness. Psychiatric/Behavioral: Negative for dysphoric mood. The patient is not nervous/anxious. All other systems reviewed and are negative. Positives and pertinent negatives as per HPI. All other systems were reviewed and are negative. Physical Exam: Patient Vitals for the past 24 hrs: BP Temp Temp src Pulse Resp SpO2 Height Weight 01/23/21 2223 78 14 99 % 01/23/21 2039 136/81 98.6 F (37 C) Oral 83 18 96 % 6' 90.7 kg (200 lb) Physical Exam Vitals and nursing note reviewed. Constitutional: General: He is not in acute distress. Appearance: He is well-developed. HENT: Head: Normocephalic and atraumatic. Eyes: Conjunctiva/sclera: Conjunctivae normal. Cardiovascular: Rate and Rhythm: Normal rate and regular rhythm. Heart sounds: Normal heart sounds. Pulmonary: Effort: Pulmonary effort is normal. Breath sounds: Normal breath sounds. Abdominal: General: Bowel sounds are normal. Palpations: Abdomen is soft. Musculoskeletal: General: Normal range of motion. Cervical back: Normal range of motion and neck supple. Comments: Right upper extremity edema of upper arm. There is also erythema present but that is present on both arms and the chest and likely a result of sunburn. The radial pulse is 2+. Patient has full range of motion of the upper extremity and sensation is intact. Skin: General: Skin is warm and dry. Neurological: Mental Status: He is alert and oriented to person, place, and time. Deep Tendon Reflexes: Reflexes are normal and symmetric. Psychiatric: Behavior: Behavior normal. Laboratory & Radiological Imaging (if done): Labs Reviewed - No data to display No orders to display EKG: . ED Course / Medical Decision Making: This 25-year-old male with no prior medical history presents status post new diagnosis of right upper extremity DVT of unknown etiology. Patient is to start on Xarelto but cannot get medication from [facility] till tomorrow. He presents tonight for medication dose. Exam reveals a right edematous right upper extremity with full range of motion and neurovascular status intact. Patient was given a dose of Xarelto. Patient has follow-up scheduled with his PCP and will be getting his Xarelto pack tomorrow from the [facility] pharmacy. Patient discharged home Clinical Impression: 1. Acute deep vein thrombosis (DVT) of right upper extremity, unspecified vein (HCC) Disposition: Patient is being discharged to home Tracee Voss MD [facility] Emergency Department (Please note that portions of this note have been completed with a voice recognition software. Efforts were made to correct any errors, but occasionally words are mis-transcribed.) Tracee Voss MD 01/24/21 0124 * Cleo Flores RN - 01/23/2021 8:37 PM EDT Pt presents with c/o blood clot to R shoulder that was dx in the ED this morning. Pt was seen in EDlast night because he was having pain and swelling in R arm. Pt states he is having increased pain and swelling. Pt has not started xarelto d/t it is not available at his pharmacy until tomorrow. * Fannie Gallo LPN - 01/23/2021 8:34 PM EDT Bed: 20 Expected date: Expected time: Means of arrival: Comments: Runner Needed documented in this [id number] Hospital Discharge instructions * Instructions* Tracee Voss MD - 01/23/2021 The following are resources for Prescription Assistance: *[facility]: [phone] [address] [facility] [address] Email: [email or web address] Website: [email or web address] *[facility] Department: or [phone] www.[email or web address] *[facility]: [phone] *[email or web address]://www.[email or web address]/ *GoodRx[employer] Information about a FREE program to lower the cost of your prescriptions including your narcotic pain medication What are GoodRx coupons? GoodRx coupons will help you pay less than the maria gee for your prescription. They re free to use and are accepted at virtually every [place] pharmacy. [facility] does not accept good rx coupons for pain medication (narcotics) at this time. Your pharmacist will know how to enter the codes on the coupon to pull up the lowest discount available. How do I use a GoodRx coupon? It s similar to using a coupon at a grocery store. Simply print the coupon and bring it with you tothe pharmacy when you case picker your prescription. The pharmacist will enter the numbers on the coupon into their system to find the discount. Don t have a printer or want to save paper and ink cartridges? You can show the coupon on your phone by: A) Sending the coupon to yourself via email or text B) Or using the mobile effie C) Visiting our mobile website [email or web address] What if I have insurance or Medicare? Many insurance plans have high deductibles or limited formularies that don t cover the drugs you need. Many insurance plans require extra authorizations for narcotic pain medication that can delay getting your medication filled. GoodRx may be able to find you a lower gee than your insurance co-pay. Hundreds of generic medications are available for $4 or even free without insurance. Connecting with a Primary Care Provider or "Family Doctor" is important for your continued health. You may call [phone])[facility], or , choose option 1 and speak to our inside account representative to schedule with a provider. Or go to [email or web address] and search "primary care" The following are resources for follow up including clinics for those with low/no income or no medical insurance: *[facility] Unit: [facility] [place] [address] [email or web address] *[facility] (Open Access Clinic) - Call ahead: [phone] Wednesday through Wednesday 9am to 7pm Priyanka Castillo [facility], [address] -The providers at this clinic will also be able to help you connect to a new Primary Care Provider. *[facility]: Call [phone] or [email or web address] (multiple locations) -Offers Primary Care, BRAKE DRUM MOLDER, dental, vision, counseling, pharmacy, nutrition, and spiritual care. *[facility]: [phone] or [email or web address] (multiple locations) -Offers Primary, Specialty & Well-children's counselor, Women's Health, dental and vision -Healthcare for the homeless, Mental Health and Substance Abuse programs as well *[facility]: [phone] or [email or web address] [address] [facility] [address] -STEPONE for a healthy call [phone] -Offers primary care (walks-in) or specialty care (by appointment only) -Dental, Vision and Colorectal screenings, prescription assistance, linkage to nutrition security, health insurance enrollment help, family coaching *[facility] ([facility] Medical Clinic: option6 -Walk in clinic: first come, first served, every Wednesday evening beginning at 4pm for registration,providers start seeing patients at 6:15pm. -Provide dx and treatment of illness only. No lab tests, injections or x-rays. -Dental Clinic: call main line, , Fridays 9:00am-9:45am to schedule an appointment. -Vision Clinic: free eye exams and vouchers for free eyeglasses (application required) to eligible individuals. Call main line Fridays 10AM-10:30AM to schedule -Chiropractic clinic: by appointment only. Provide evaluation and care for those with pain involving the head, neck back or joints. No x-rays. Call main line Fridays 10-10:30AM to schedule *[facility], [address] [place] [address] RESOURCES FOR PRIMARY CARE [facility] Referral Service: Visit [email or web address] or Call (use option 1) OR [phone] Here are a few providers accepting new patients in your area: Andrés Birch MD Internal Medicine [facility] [address] [place] [address] Sukhwinder Lacey MD Family Medicine [facility] [address] [place] [address] Kate Douglas MD [facility] [address] [place] [address] P: FINANCIAL ASSISTANCE: [facility] Financial Assistance: Medical financial assistance is offered to patients with limited resources and inadequate medical insurance coverage. Eligibility is determined by family income. Please visit: [email or web address]/[email or web address]- assistance/ [facility] Financial Assistance Office: [phone] [facility]: [phone] [facility]: [phone] Billing Department: [phone] Medicaid (Medical Assistance) is a Federal-State health insurance program for people who need financial assistance to pay for medical expenses. Eligibility is based on household income and household size according to the federal poverty level guidelines. Call your local Department of Job and FamilyServices or: Medicaid Consumer Hotline: *Choice Counselors available to help you select managed care plan or make changes. To apply, renew, report Medicaid changes: Call Benefits [place] at or visit https://benefits.[place].gov/ to apply. Click Check your eligibility and follow the prompts. The Health Insurance Marketplace Allows you to compare health insurance plans, find out if you are eligible for tax credits for private insurance or other health programs, and enroll in a health insurance plan that meets your needs. For information, call: or visit: www.healthcare.gov/ * Attachments The following attachments cannot be sent through Care Everywhere. * DVT (Deep Vein Thrombosis): Prevention: General Info (Maldivian) documented in this [id number] Emergency department Note* Marilyn Robles RN - 01/22/2021 8:45 PM EDT Right upper extremity flushed, warm from fingertips to axilla. Has full range of motion. Swelling of arm noted * Oliva Ortiz RN - 01/22/2021 5:59 PM EDT PATIENT STATES HE WOKE UP A FEW HOURS AGO WITH RIGHT SIDED ARM SWELLING AND DISCOLORATION. AREA OR ECCHYMOSIS NOTED AROUND MEDIAL ANTERIOR BICEP. CAP REFILL LESS THAN 3 SECONDS, RADIAL PULSES 2+ B/L.PATIENT HAS FULL ROM. PATIENT STATES HE PLAYED SOFTBALL YESTERDAY BUT CANNOT REMEMBER HURTING HIMSELF OR FALLING. PT IS A DIABETIC, STATES HIS SUGARS RUN 200-300, PT STATES HE TAKES INSULIN. PT REPORTS 6/10 CONSTANT THROBBING IN RIGHT ARM, TIGHTNESS documented in this [id number] Hospital Discharge instructions * Instructions* Peter Carmichael PA-C - 01/22/2021 Connecting with a Primary Care Provider or "Family Doctor" is important for your continued health. Please visit [email or web address] and search for a "Primary Care" provider near your address. Many offer online scheduling to help connect you to a provider. Please confirm any appointment with the office. You may also call [phone], or , choose option 1 and speak to our inside account representative to schedule with a provider. AN ORDER FOR A DOPPLER ULTRASOUND OF YOUR RIGHT ARM WAS ORDERED FOR TOMORROW MORNING. YOU SHOULD RECEIVE A CALL FROM THE ULTRASOUND OFFICE PROVIDING YOU WITH THE TIME TO REPORT FOR THE STUDY. IF YOU DO NOT HERE FROM THE OFFICE BY 0900 CALL CENTRAL SCHEDULING AT [phone]. INFORM THE STAFF THAT YOU WERE SEEN IN THE EMERGENCY DEPARTMENT TONIGHT FOR RIGHT ARM EDEMA. THEY SHOULD BE PERFORM THE ULTRASOUND TOMORROW MORNING. YOU DID RECEIVE A DOSE OF A BLOOD THINNING MEDICINE TONIGHT. IF YOU TEST IS POSITIVE YOU WILL BE SENT TO THE EMERGENCY DEPARTMENT FOR FURTHER MANAGEMENT. * Attachments The following attachments cannot be sent through Care Everywhere. * DVT (Deep Vein Thrombosis): General Info (Maldivian) documented in this encounterOhioHealthConsult note Author Tory Vergara [facility] Note Date/Time November 06, 2024 3:5 6pm [facility] Medical Records Department [address] [place] [address] Counseling Note - Pharmacy 11/06/24 5010 MR#: [id number] Acct: [id number] Name: EVERARDO ESCOBAR Rep #:[id number] : 1995 29 From: Tory Vergara PCP: Care Physician,No Primary Status :ADM IN Location: [place] [id number] 1 Pharmacy [facility] Pharmacy Service has performed discharge medication reconciliation and counseling for this patient. 1. INSULIN GLARGINE 25UNITS SC QHS The patient's discharge medication list was reviewed for discrepancies and discrepancies were resolved. The patient was counseled on the following discharge medications and changes in medications for homegoing were reviewed. The Reason for Use, instructions for use, and potential side effects were reviewed for all new medications. The patient's questions regarding all of their medications were answered. The patient was able to verbally demonstrate an understanding of their dischargemedications. Medications at Discharge Home Medications insulin glargine-yfgn 100 unit/mL (3 mL) subcutaneous pen 25 unit (0.25 mL) subcut QHS #15 mL 11/06/24 insulin lispro 100 unit/mL subcutaneous pen (Humalog KwikPen (U-100) Insulin) 10unit (0.1 mL) subcut TID #15 mL 11/06/24 pen needle, diabetic 31 gauge x 1/3" #100 ea 11/06/24 11/06/24 9576 <Electronically signed by Tory Vergara> Date _ Tory Crabtree Signature (if applicable): Date CC: ~ Signed [facility] Work Phone: Discharge summary Author Peter Toth [facility] Note Date/Time November 06, 2024 3:0 3pm [facility] Medical Records Department [address] [place] [address] Instructions for Home/Discharge Instructions 11/06/24 1447 MR#: [id number] Acct: [id number] Name: EVERARDO ESCOBAR Rep #:[id number] : 1995 29 From: Peter Toth DO PCP: Care Physician,No Primary Status :ADM IN Discharge Instructions Diet Discharge Diet: 2200 Calorie Control Diet DC O2, CPAP, BIPAP needs Home O2 Discharge instructions: No Dressing / Incision Discharge Activity: Return to Normal Activity Weight Bearing Status: Full weight bearing Follow Up Care Test Results: Test results from this visit will be discussed in further detail at your follow- up appointment, if applicable. Discharge Plan Admission Admit Date/Time: 11/04/24 23:08 Primary Reason for Your Visit: DKA Attending Provider: Peter Toth Primary Care Provider: Care Physician,No Primary Consulting Providers: Izaiah Varela; Charity Michele Instructions Additional Instructions / Restrictions: Follow-up with Rigo William at [facility] [phone] in the next 2weeks-call for an appointment Discharge Orders/Prescriptions Prescriptions: New insulin glargine-yfgn 100 unit/mL (3 mL) Insulin Pen 25 unit subcut QHS Qty: 15 0RF insulin lispro [Humalog KwikPen Insulin] 100 unit/mL insulin pen 10 unit subcut TID Qty: 15 0RF (DME) pen needle, diabetic 31 gauge x 1/3" needle See Rx Instructions .Route Qty: 100 0RF Rx Instructions: As directed Discontinued insulin lispro 100 unit/mL insulin pen 1 sliding scale dose SUBCUT Patient Comments: INJECT SUBCUTANEOUSLY DIRECTED THREE TIMES DAILY PLUS SLIDING SCALE, APPROXIMATELY 50 UNITS DAILY ( CHO RATIO OF 1-8 FOR MEALS AND SNACKS) Referrals / Follow Up: Care Physician,No Primary [Primary Care Provider] - Disposition Disposition (needs filled in before D/C Order can be placed): Home, Self Care 11/06/24 1503<Electronically signed by Peter Toth DO>Peter Toth DO CC: Dr. Izaiah Varela DO; Dr. Charity Michele MD; No Primary Care Physician ~ Signed [facility] Work Phone: Evaluation note* Diagnosis Arm edema- Primary Edema [facility] [place]* Diagnosis Acute deep vein thrombosis (DVT) of right upper extremity, unspecified vein (HCC)- Primary [facility] Diagnosis Type 1 diabetes mellitus without complication (HCC)- Primary Type I (juvenile type) diabetes mellitus without mention of complication, not stated as uncontrolled Acute deep vein thrombosis (DVT) of right upper extremity, unspecified vein (HCC) Encounter for hepatitis C screening test for low risk patient Screening for HIV without presence of risk factors [facility] Diagnosis Acute deep vein thrombosis (DVT) of right upper extremity, unspecified vein (HCC) [facility]* Diagnosis Type 1 diabetes mellitus without complication (HCC)- Primary Type I (juvenile type) diabetes mellitus without mention of complication, not stated as uncontrolled [facility]* Diagnosis 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)- Primary [facility]* Diagnosis Type 1 diabetes mellitus with other specified complication (HCC)- Primary [facility]* Diagnosis Type 1 diabetes mellitus with other specified complication (HCC)- Primary [facility]* Diagnosis 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)- Primary [facility]* Diagnosis DKA, type 1, not at goal (HCC)- Primary COVID-19 Type 1 diabetes mellitus with ketoacidosis without coma (HCC) [facility]* Diagnosis 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)- Primary [facility]* Diagnosis 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) [facility] Diagnosis 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)- Primary documented in this encounter [facility] note* Diagnosis Type 1 diabetes mellitus without complication (HCC)- Primary Type I (juvenile type) diabetes mellitus without mention of complication, not stated as uncontrolled Acute deep vein thrombosis (DVT) of right upper extremity, unspecified vein (HCC) Encounter for hepatitis C screening test for low risk patient Screening for HIV without presence of risk factors Type 1 diabetes mellitus without complication (HCC)- Primary Type I (juvenile type) diabetes mellitus without mention of complication, not stated as uncontrolled Acute deep vein thrombosis (DVT) of right upper extremity, unspecified vein (HCC) Does not have health insurance Other specified housing or economic circumstances 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)- Primary Type 1 diabetes mellitus without complication (HCC) Type I (juvenile type) diabetes mellitus without mention of complication, not stated as uncontrolled documented in this encounter [facility] note* Diagnosis Type 1 diabetes mellitus without complication (HCC)- Primary Type I (juvenile type) diabetes mellitus without mention of complication, not stated as uncontrolled Acute deep vein thrombosis (DVT) of right upper extremity, unspecified vein (HCC) Encounter for hepatitis C screening test for low risk patient Screening for HIV without presence of risk factors Type 1 diabetes mellitus without complication (HCC)- Primary Type I (juvenile type) diabetes mellitus without mention of complication, not stated as uncontrolled Acute deep vein thrombosis (DVT) of right upper extremity, unspecified vein (HCC) Does not have health insurance Other specified housing or economic circumstances 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)- Primary documented in this encounter [facility] for referral (narrative)* Consultation (Routine) - Pending Review Specialty Diagnoses / Procedures Referred By Contana t Referred To Contact Nutrition Diagnoses Type 1 diabetes mellitus without complication (HCC) Og Godinez PA-C [address] [place] [address] Referral ID Status Reason Start Date Expiration Date V isits Requested Visits Authorized [id number] Pending Review 05/21/2021 05/21/2022 1 1 * Consultation (Routine) - Pending Review Specialty Diagnoses / Procedures Referred By Contac t Referred To Contact Endocrinology Diagnoses Type 1 diabetes mellitus without complication (HCC) Og Godinez PA-C [address] [place] [id number] Referral ID Status Reason Start Date Expiration Date V isits Requested Visits Authorized [id number] Pending Review 05/21/2021 05/21/2022 1 1 [facility] for referral (narrative)No reason for referral information availableWOhioHealth [facility] Work Phone: Summary Purpose Family History No Family History Records FoundNo Family History Records FoundNo Family History Records FoundNo Family History Records FoundNo Family History Records FoundNo Family History Records FoundNo Family History Records FoundNo Family History Records FoundNo Family History Records FoundNo Family History Records Found Advance Directives No Advanced Directives Records FoundDocuments on File Type Date Recorded Patient Automatic Lathe Tender Expl anation Advance Directives and Livin g Will 01/22/2021 7:07 PM Documents on File Type Date Recorded Patient Automatic Lathe Tender Expl anation Advance Directives and Livin g Will 01/23/2021 8:57 PM Documents on File Type Date Recorded Patient Automatic Lathe Tender Expl anation Advance Directives and Livin g Will 01/23/2021 8:57 PM Documents on File Type Date Recorded Patient Automatic Lathe Tender Expl anation Advance Directives and Livin g Will 05/21/2021 4:33 PM Latest Code Status on File Code Status Date Activated Date Inactivated Comments Full Code 04/24/2021 6:11 PM 04/25/2021 6:44 PM Documents on File Type Date Recorded Patient Automatic Lathe Tender Expl anation Advance Directives and Livin g Will 08/04/2021 9:45 AM Latest Code Status on File Code Status Date Activated Date Inactivated Comments Full Code 04/24/2021 6:11 PM 04/25/2021 6:44 PM Latest Code Status on File Date Activated Date Inactivated Comments 03/22/2022 10:05 PM 03/23/2022 4:19 PM Full Code Date Activated Date Inactivated Comments 04/24/2021 6:11 PM 04/25/2021 6:44 PM Latest Code Status on File Code Status Date Activated Date Inactivated Comments Full Code 03/22/2022 10:05 PM 03/23/2022 4:19 PM Code Status History Code Status Date Activated Date Inactivated Comments Full Code 04/24/2021 6:11 PM 04/25/2021 6:44 PM Latest Code Status on File Code Status Date Activated Date Inactivated Comments Full Code 10/31/2022 1:36 PM 11/01/2022 4:21 PM Code Status History Code Status Date Activated Date Inactivated Comments Full Code 03/22/2022 10:05 PM 03/23/2022 4:19 PM Full Code 04/24/2021 6:11 PM 04/25/2021 6:44 PM Latest Code Status on File Code Status Date Activated Date Inactivated Comments Full Code - Unverified 08/28/2023 10:41 PM 08/29/2023 3:28 PM Code Status History Code Status Date Activated Date Inactivated Comments Full Code 10/31/2022 1:36 PM 11/01/2022 4:21 PM Full Code 03/22/2022 10:05 PM 03/23/2022 4:19 PM Full Code 04/24/2021 6:11 PM 04/25/2021 6:44 PM Date Activated Date Inactivated Comments 08/28/2023 10:41 PM 08/29/2023 3:28 PM Date Activated Date Inactivated Comments 10/31/2022 1:36 PM 11/01/2022 4:21 PM Date Activated Date Inactivated Comments 03/22/2022 10:05 PM 03/23/2022 4:19 PM Date Activated Date Inactivated Comments 04/24/2021 6:11 PM 04/25/2021 6:44 PM Advance Directive Response Recorded Date/ Time Living Will No November 04, 2024 9:31pm Power of Artist'S Manager No November 04 9:31pm Advance Directive Response Recorded Date/ Time Living Will No November 04, 2024 11:50pm Power of Artist'S Manager No November 04 11:50pm Date Activated Date Inactivated Comments 04/30/2024 5:45 PM 05/02/2024 4:45 PM Date Activated Date Inactivated Comments 08/28/2023 10:41 PM 08/29/2023 3:28 PM Date Activated Date Inactivated Comments 10/31/2022 1:36 PM 11/01/2022 4:21 PM Date Activated Date Inactivated Comments 03/22/2022 10:05 PM 03/23/2022 4:19 PM Date Activated Date Inactivated Comments 04/24/2021 6:11 PM 04/25/2021 6:44 PM Date Activated Date Inactivated Comments 04/30/2024 5:45 PM 05/02/2024 4:45 PM Date Activated Date Inactivated Comments 08/28/2023 10:41 PM 08/29/2023 3:28 PM Date Activated Date Inactivated Comments 10/31/2022 1:36 PM 11/01/2022 4:21 PM Date Activated Date Inactivated Comments 03/22/2022 10:05 PM 03/23/2022 4:19 PM Date Activated Date Inactivated Comments 04/24/2021 6:11 PM 04/25/2021 6:44 PM Reason for Referral Status Reason Specialty Diagnoses / Procedures Referred By Contact Referred To Contact Pending Review Cardiology Procedures Ultrasound duplex venous arm right Peter Carmichael PA-C [address] [place] [address] Status Reason Specialty Diagnoses / Procedures Referred By Contact Referred To Contact Pending Review Oncology Diagnoses Acute deep vein thrombosis (DVT) of right upper extremity, unspecified vein (HCC) America Granados MD [address] [place] [phone] Rebekah Sanchez MD [address] [place] [address] Chief Complaint and Reason for Visit Chief Complaint Admit Date DKA July 26, 2024 7 :29am Pain July 26, 2024 7 :38am DKA July 27, 2024 9 :25am DKA; WITH N/V/D AND ABDOMINAL PAIN November 04, 2024 10:27pm Reason for Visit Admit Date Abdominal pain July 26, 2024 7 :29am Acute dehydration July 26, 2024 7 :29am ZAHIDA (acute kidney injury) July 26, 2024 7:29am DKA (diabetic ketoacidosis) July 7:29am Type 1 diabetes July 26, 2024 7 :29am Abdominal pain November 04, 2024 10: 27pm Acute dehydration November 04, 2024 10: 27pm ZAHIDA (acute kidney injury) November 04 10:27pm DKA (diabetic ketoacidosis) November 04, 2024 10:27pm Leukocytosis November 04, 2024 10: 27pm Metabolic acidosis November 04, 2024 10: 27pm Nausea, vomiting and diarrhea October 10:27pm Tobacco abuse November 04, 2024 10: 27pm Type 1 diabetes November 04, 2024 10: 27pm Chief Complaint Admit Date DKA July 26, 2024 7 :29am Pain July 26, 2024 7 :38am DKA July 27, 2024 9 :25am DKA; WITH N/V/D AND ABDOMINAL PAIN November 04, 2024 10:42pm DKA; WITH N/V/D AND ABDOMINAL PAIN November 04, 2024 11:08pm DKA; WITH N/V/D AND ABDOMINAL PAIN November 05, 2024 7:50am DKA; WITH N/V/D AND ABDOMINAL PAIN November 06, 2024 1:05am Reason for Visit Admit Date Abdominal pain July 26, 2024 7 :29am Acute dehydration July 26, 2024 7 :29am ZAHIDA (acute kidney injury) July 26, 2024 7:29am DKA (diabetic ketoacidosis) July 7:29am Type 1 diabetes July 26, 2024 7 :29am Abdominal pain November 04, 2024 11: 08pm Acute dehydration November 04, 2024 11: 08pm ZAHIDA (acute kidney injury) November 04 11:08pm DKA (diabetic ketoacidosis) November 04, 2024 11:08pm Hyperkalemia November 04, 2024 11: 08pm Leukocytosis November 04, 2024 11: 08pm Metabolic acidosis November 04, 2024 11: 08pm Nausea, vomiting and diarrhea October 11:08pm Tobacco abuse November 04, 2024 11: 08pm Type 1 diabetes November 04, 2024 11: 08pm Additional Source Comments (unrecognized sect ion and content) No Status Records FoundNo Status Records FoundNo Status Records FoundNo Status Records FoundNo Status Records FoundNo Status Records FoundNo Status Records FoundNo Status Records FoundNo Status Records FoundNo Status Records Found INFORMATION SOURCE (unrecogn ized section and content) DATE CREATED AUTHOR 02/16/2018 [facility] DATE CREATED AUTHOR AUTHOR'S ORGANIZ ATION 11/27/2018 [facility] DATE CREATED AUTHOR AUTHOR'S ORGANIZ ATION 12/14/2019 [employer] DATE CREATED AUTHOR AUTHOR'S ORGANIZ ATION 01/24/2020 [facility] DATE CREATED AUTHOR AUTHOR'S ORGANIZ ATION 09/15/2020 [facility] DATE CREATED AUTHOR AUTHOR'S ORGANIZ ATION 05/04/2024 [facility] DATE CREATED AUTHOR AUTHOR'S ORGANIZ ATION 12/31/2024 [facility] DATE CREATED AUTHOR AUTHOR'S ORGANIZ ATION 04/08/2025 [facility] DATE CREATED AUTHOR AUTHOR'S ORGANIZ ATION 06/01/2025 [facility] DATE CREATED AUTHOR AUTHOR'S ORGANIZ ATION 07/04/2025 [facility] Reason for Visit (unrecogniz ed section and content) Reason Comments Arm Pain Reason Comments Arm Pain Reason Comments Establish Care New Patient/ Has Blo od Clot in Right shoulder/ would like to discuss Er Visit on 01/23 Reason Comments financial assistance Reason Onset Date Comments Community Resource Linkage 02/27/2021 Medic ation assistance Reason Comments DVT NEW CONSULT DR VARGAS Status Reason Specialty Diagnoses / Procedures Referred By Contact Referred To Contact Closed Specialty Services Required/Patien t's Best Interest Hematology/Oncol ogy / Oncology Diagnoses Acute deep vein thrombosis (DVT) of right upper extremity, unspecified vein (HCC) America Granados MD [address] [place] [id number] Rebekah Sanchez MD [address] [place] [id number] Reason Comments Diabetes Mellitus Reason Comments Diabetes Mellitus Reason Onset Date Comments Medication Refill 12/29/2021 Reason Onset Date Comments Medication Refill 01/21/2022 Reason Comments Diabetes Mellitus Gap Closure (Health Maintenance) There a re no preventive care reminders to display for this patient. Reason Comments Diabetes Mellitus Gap Closure (Health Maintenance) There a re no preventive care reminders to display for this patient. Reason Comments Generalized Body Aches Fatigue Nausea Hyperglycemia Reason Onset Date Comments Medication Refill 09/09/2023 Reason Onset Date Comments Medication Refill 02/03/2024 Reason Comments Diabetes Mellitus Gap Closure (Health Maintenance) Diabeti c Eye Exam Never doneUrine Microalbumin due on 08/29/2023A1C due on 11/27/2023 Reason Comments Diabetes Mellitus Gap Closure (Health Maintenance) Diabeti c Eye Exam Never done Reason Onset Date Comments Medication Refill 03/09/2025 Scheduled Active and Recently Administ ered Medications (unrecognized section and content) Medication Order 01/20/2021 01/21/2021 01/22/2021 enoxaparin (LOVENOX) syringe 90 mg (COMPLETED) 90 mg (rounded from 90.7 mg = 1 mg/kg 90.7 kg), Subcutaneous, Once, On Wed01/22/21 at 2200, For 1 dose, Administer in abdomen unless otherwise directed by prescriber. Notify physician if patient refuses., Indication: DVT/PE Treatment 2229 (Given - Provid er: Marilyn Robles RN - Comment: Right) PRN Medication Order 01/20/2021 01/21/2021 01/22/2021 iopamidoL (ISOVUE-370) 76 % injection 75 mL (COMPLETED) 75 mL, Intravenous, Once in imaging, contrast, Per jet engine mechanic (Radiology), Starting on Wed01/22/21 at 1904, For 1 dose 2106 (Contrast Admin istered - Provider: Geetha Shukla TECHNOLOGIST) sodium chloride (PF) (NS) 0.9 % contrast line flush 10 mL (COMPLETED) 10 mL, Intravenous, Once in imaging, contrast, Per jet engine mechanic (Radiology) for line patency check prior to contrast administration, Starting on Wed01/22/21 at 1904, For 1 dose 2107 (Given - Provid er: TECHNOLOGIST Akash) sodium chloride (PF) (NS) 0.9 % contrast line flush 80 mL (COMPLETED) 80 mL, Intravenous, Once in imaging, contrast, Per jet engine mechanic (Radiology), Starting on Wed01/22/21 at 1904, For 1 dose, 30 mL BEFORE contrast administration 50 mL AFTER contrast administration 2107 (Given - Provid er: Geetha Shukla, TECHNOLOGIST) sodium chloride (PF) (NS) flush 5 mL(Linked Group 1) 5 mL, Intravenous, As needed, line care, Starting on Wed01/22/21 at 181 sodium chloride 0.9% (NS)(Linked Group 1) 0-150 mL/hr, Intravenous, As needed, To flush line after IV infusions when no maintenance IV ordered or a compatibility issue. Infuse 20ml at the same rate as the secondary infusion, Starting on Wed01/22/21 at 1818, Run as Primary IV. NOT intended for KVO. Linked Groups Order Group 1: Insert peripheral IV (COMPLETED) MAURICIO, Once, On Wed01/22/21 at 181, For 1 occurrence And Saline lock IV (CANCELED) MAURICIO, Once, On Wed01/22/21 at 1818, For 1 occurrence And sodium chloride (PF) (NS) flush 5 mLJump to med 5 mL, Intravenous, As needed, line care, Starting on Wed01/22/21 at 181 And sodium chloride 0.9% (NS)Jump to med 0-150 mL/hr, Intravenous, As needed, To flush line after IV infusions when no maintenance IV ordered or a compatibility issue. Infuse 20ml at the same rate as the secondary infusion, Starting on Wed01/22/21 at 1818
Run as Primary IV. NOT intended for KVO.
Scheduled Medication Order 01/21/2021 01/22/2021 01/23/2021 rivaroxaban (XARELTO) tablet 15 mg (COMPLETED) 15 mg, Oral, Once, On [place] 01/23/21 at 2120, For 1 dose, Must be given with food. Notify physician if patient refuses. If feeding tube administration, give only via tubes placed in the stomach., Indication: DVT/PE, How long has patient been on rivaroxiban? 0-21 Days 2141 (Given - Provid er: Cleo Flores RN) Scheduled Medication Order 08/27/2023 08/28/2023 08/29/2023 insulin glargine (LANTUS) injection 10 Units (COMPLETED) 10 Units, Subcutaneous, Once, On [place] 08/29/23 at 0645, For 1 dose, Give 10 units of lantus, wait 1 hour, and turn off insulin gtt Do not mix with other insulins in a syringe. "Do NOT hold basal insulin without notifying physician" 0625 (Given - Provid er: Rebekah Sauceda RN) insulin glargine (LANTUS) injection 24 Units 24 Units, Subcutaneous, Nightly, First dose on 08/29/23 at 2100, If patient NPO and BG LESS than 100 before procedure, administer half (rounded up to nearest unit) of the glargine insulin (LANTUS) dose; if BG is GREATER than 100, administer the full dose unless otherwise instructed by ordering physician Do not mix with other insulins in a syringe. "Do NOT hold basal insulin without notifying physician" insulin lispro (AdmeLOG,HumaLOG) injection 0-15 Units 0-15 Units, Subcutaneous, At bedtime, First dose (after last modification) on 08/29/23 at 2100, For Nightly Insulin Dose Coverage, use: CORRECTIVE (Only) for BG greater than 300, Nightly CORRECTIVE Dose Method: Follow Corrective SCALE, Corrective Scale to use for BG > 300: Insulin SENSITIVE Scale, For Downtime Calculator, use: Insulin SC NIGHTtime insulin lispro (AdmeLOG,HumaLOG) injection 0-30 Units 0-30 Units, Subcutaneous, 3 times daily before meals, First dose (after last modification) on 08/29/23 at 1130, Dose should be given 10-15 minutes before a meal. If poor oral intake, nausea or blood glucose value < 80 before meal, give of the dose (rounded up to nearest unit) immediately after meal completed. If patient skipping meal, hold base prandial dose and continue to use corrective insulin as ordered. Once diet resumed, total base prandial + corrective doses may be given., Prandial Insulin Dosing Method: Carb Counting Ratio, 1 unit of insulin per: specified, grams of carbohydrates: 8, Corrective Insulin Regimen (select desired scale to cover BG result): Insulin SENSITIVE Scale, For Downtime Calculator, use: Insulin SC MEALtime PREprandial" 1303 (Given - Provid er: Kristan Knutson LPN) insulin lispro (AdmeLOG,HumaLOG) injection 6 Units (COMPLETED) 6 Units, Subcutaneous, Once, On 08/29/23 at 1050, For 1 dose 1111 (Given - Provid er: Kristan Knutson LPN) ondansetron (ZOFRAN) injection 4 mg (COMPLETED) 4 mg, Intravenous, Once, On 08/28/23 at 2130, For 1 dose 2139 (Given - Provider: Rebekah Sauceda RN) potassium chloride 20 mEq in 100 mL IVPB 20 mEq, Intravenous, at 100 mL/hr, Every 1 hour if indicated in MAR calculator, First dose on 08/28/23 at 2300, DKA Potassium Corrective Scale for Potassium LESS THAN 4 Check with physician if patient is ESRD. VESICANT 2300 (Not Given - Provider: Rebekah Sauceda RN - Reason: Order parameters not met) 0000 (Not Given - Provider: Rebekah Sauceda RN - Reason: Order parameters not met)0100 (Not Given - Provider: Rebekah Sauceda RN - Reason: Order parameters not met)0200 (Not Given - Provider: Rebekah Sauceda RN - Reason: Order parameters not met)0300 (Not Given - Provider: Rebekah Sauceda RN - Reason: Order parameters not met)0400 (Not Given - Provider: Rebekah Sauceda RN - Reason: Order parameters not met)0500 (Not Given - Provider: Rebekah Sauceda RN - Reason: Order parameters not met)0600 (Not Given - Provider: Rebekah Sauceda RN - Reason: Order parameters not met)0700 (Not Given - Provider: Kristan Knutson LPN - Reason: Other)0800 (Not Given - Provider: Kristan Knutson LPN - Reason: Other)0900 (Not Given - Provider: Kristan Knutson LPN - Reason: Other)1000 (Due)1100 (Due)1200 (Due)1300 (Due) sodium chloride (PF) (NS) flush 5 mL(Linked Group 1) 5 mL, Intravenous, Every 8 hours scheduled, First dose on 08/28/23 at 2245, Saline lock 2250 (Given - Provider: Rebekah Sauceda RN) 0600 (Given - Provider: Rebekah Sauceda RN) sodium chloride 0.9% (NS) bolus 1,000 mL (COMPLETED) 1,000 mL, Intravenous, at 999 mL/hr, Once, On 08/28/23 at 2040, For 1 dose 223 (New Bag - Provider: Rebekah Sauceda RN)2340 (Stopped - Provider: Rebekah Sauceda RN) sodium chloride 0.9% (NS) bolus 1,000 mL (COMPLETED) 1,000 mL, Intravenous, at 983.6 mL/hr, Once, On 08/28/23 at 2130, For 1 dose 213 (New Bag - Provider: Rebekah Sauceda RN)2230 (Stopped - Provider: Rebekah Sauceda RN) Continuous Medication Order 08/27/2023 08/28/2023 08/29/2023 insulin regular in 0.9 % NaCl (MYXREDLIN) 100 Units/100 mL infusion (CANCELED) 0.1-30 Units/hr (0.1-30 mL/hr), Intravenous, Titrated, Starting on 08/28/23 at 2220, Titrate insulin IV per MAR calculator to coincide with the scheduled point of care glucose results., For Downtime Calculator, use: "Insulin Infusion DKA" 223 (New Bag - Provider: Rebekah Sauceda RN)2251 (Stopped - Provider: Rebekah Sauceda RN) insulin regular in 0.9 % NaCl (MYXREDLIN) 100 Units/100 mL infusion (CANCELED) 0.1-30 Units/hr (0.1-30 mL/hr), Intravenous, Titrated, Starting on 08/28/23 at 2245, Titrate insulin IV per MAR calculator to coincide with the scheduled point of care glucose results., For Downtime Calculator, use: "Insulin Infusion DKA" 2240 (New Bag - Provider: Rebekah Sauceda RN)2339 (Rate/Dose Change - Provider: Rebekah Sauceda RN) 0037 (Rate/Dose Change - Provider: Rebekah Sauceda RN)0140 (Rate/Dose Change - Provider: Rebekah Sauceda RN)0240 (Rate/Dose Change - Provider: Rebekah Sauceda RN)0405 (Rate/Dose Change - Provider: Rebekah Sauceda RN)0506 (Rate/Dose Change - Provider: Rebekah Sauceda RN)0610 (Rate/Dose Change - Provider: Rebekah Sauceda RN)0724 (Stopped - Provider: Rebekah Sauceda RN) PRN Medication Order 08/27/2023 08/28/2023 08/29/2023 dextrose 5 % and sodium chloride 0.45 % infusion 150 mL/hr, Intravenous, Continuous PRN, MAINTENANCE IV Fluid (once BG is less than 250 mg/dL) AND Potassium is GREATER than 5, Starting on 08/28/23 at 2241, Discontinue INITIAL IV Fluid after starting this MAINTENANCE IV Fluid. Do NOT hold infusion for elevated blood glucose without contacting physician. Check with physician if patient is ESRD. 2345 (New Bag - Provider: Rebekah Sauceda RN - Comment: potassium is 5, use d5 1/[address] puente) 0044 (Stopped - Provider: Rebekah Sauceda RN) dextrose 5 % and sodium chloride 0.45 % with KCl 20 mEq/L infusion 150 mL/hr, Intravenous, Continuous PRN, MAINTENANCE IV Fluid (once BG is less than 250 mg/dL) AND Potassium is LESS than 5, Starting on 08/28/23 at 2241, Discontinue INITIAL IV Fluid after starting this MAINTENANCE IV Fluid. Do NOT hold infusion for elevated blood glucose without contacting physician. Check with physician if patient is ESRD. 0041 (New Bag - Provider: Rebekah Sauceda RN)0657 (New Bag - Provider: Rebekah Sauceda RN)0724 (Stopped - Provider: Rebekah Sauceda RN) sodium chloride (PF) (NS) flush 5 mL(Linked Group 2) 5 mL, Intravenous, As needed, line care, Starting on 08/28/23 at 2036 sodium chloride (PF) (NS) flush 5 mL(Linked Group 1) 5 mL, Intravenous, As needed, line care, Starting on 08/28/23 at 2241 sodium chloride 0.9% (NS)(Linked Group 2) 0-150 mL/hr, Intravenous, As needed, To flush line after IV infusions when no maintenance IV ordered or a compatibility issue. Infuse 20ml at the same rate as the secondary infusion, Starting on 08/28/23 at 203, Run as Primary IV. NOT intended for KVO. sodium chloride 0.9% (NS)(Linked Group 1) 0-150 mL/hr, Intravenous, As needed, To flush line after IV infusions when no maintenance IV ordered or a compatibility issue. Infuse 20ml at the same rate as the secondary infusion, Starting on 08/28/23 at 2241, Run as Primary IV. NOT intended for KVO. Linked Groups Order Group 1: Saline lock IV (CANCELED) Routine, Continuous, Starting on 08/28/23 at 2242, Until Specified And sodium chloride (PF) (NS) flush 5 mLJump to med 5 mL, Intravenous, As needed, line care, Starting on 08/28/23 at 2241 And sodium chloride (PF) (NS) flush 5 mLJump to med 5 mL, Intravenous, Every 8 hours scheduled, First dose on 08/28/23 at 2245
Saline lock
And sodium chloride 0.9% (NS)Jump to med 0-150 mL/hr, Intravenous, As needed, To flush line after IV infusions when no maintenance IV ordered or a compatibility issue. Infuse 20ml at the same rate as the secondary infusion, Starting on 08/28/23 at 2241
Run as Primary IV. NOT intended for KVO.
Group 2: Insert peripheral IV (COMPLETED) MAURICIO, Once, On 08/28/23 at 2036, For 1 occurrence And Saline lock IV (CANCELED) MAURICIO, Once, On 08/28/23 at 2036, For 1 occurrence And sodium chloride (PF) (NS) flush 5 mLJump to med 5 mL, Intravenous, As needed, line care, Starting on 08/28/23 at 2035 And sodium chloride 0.9% (NS)Jump to med 0-150 mL/hr, Intravenous, As needed, To flush line after IV infusions when no maintenance IV ordered or a compatibility issue. Infuse 20ml at the same rate as the secondary infusion, Starting on 08/28/23 at 2035
Run as Primary IV. NOT intended for KVO.
Care Teams (unrecognized sec tion and content) Jackhammer Operator Relationship Specialty Start Date End Date No, Physician [facility] PCP - General 04/24/21 Jackhammer Operator Relationship Specialty Start Date End Date No, Physician [facility] PCP - General 04/24/21 Jackhammer Operator Relationship Specialty Start Date End Date No, Physician [facility] PCP - General 04/24/21 Jackhammer Operator Relationship Specialty Start Date End Date No, Physician [facility] PCP - General 04/24/21 Jackhammer Operator Relationship Specialty Start Date End Date No, Physician [facility] PCP - General 04/24/21 Jackhammer Operator Relationship Specialty Start Date End Date No, Physician [facility] PCP - General 04/24/21 Jackhammer Operator Relationship Specialty Start Date End Date No, Physician [facility] PCP - General 04/24/21 Jackhammer Operator Relationship Specialty Start Date End Date No, Physician [facility] PCP - General 04/24/21 Jackhammer Operator Relationship Specialty Start Date End Date No, Physician [facility] PCP - General 04/24/21 Jackhammer Operator Relationship Specialty Start Date End Date No, Physician [facility] PCP - General 04/24/21 Team Status: Active Member Role Status Dates No Primary Care Physician Primary Care Provider Active Team Status: Inactive Member Role Status Dates No Primary Care Physician Primary Care Provider Active Start: July 26, 2024 End: July 27, 2024 Dr. Eloy Moore DO Emergency Provider Active Start: July 26, 2024 End: July 27, 2024 Dr. Basil Escobar MD Admit Provider Active Sta rt: July 26, 2024 End: July 27, 2024 Dr. Basil Escobar MD Attending Provider Active Start: July 26, 2024 End: July 27, 2024 Team Status: Active Member Role Status Dates No Primary Care Physician Primary Care Provider Active Start: July 26, 2024 Dr. Eloy Moore DO Emergency Provider Active Start: July 26, 2024 Dr. Basil Escobar MD Attending Provider Active Start: July 26, 2024 Team Status: Active Member Role Status Dates No Primary Care Physician Primary Care Provider Active Start: July 27, 2024 Dr. Eloy Moore DO Emergency Provider Active Start: July 27, 2024 Dr. Basil Escobar MD Admit Provider Active Sta rt: July 27, 2024 Dr. Basil Escobar MD Attending Provider Active Start: July 27, 2024 Dr. Basil Escobar MD Other Provider Active Sta rt: July 27, 2024 Team Status: Active Member Role Status Dates No Primary Care Physician Primary Care Provider Active Start: November 04, 2024 Dr. Julián Veliz MD Emergency Provider Active S tart: November 04, 2024 Dr. Izaiah Varela DO Admit Provider Active Start: November 04, 2024 Dr. Izaiah Varela DO Attending Provider Active Start: November 04, 2024 Team Status: Active Member Role Status Dates No Primary Care Physician Primary Care Provider Active Start: November 04, 2024 Dr. Julián Veliz MD Emergency Provider Active S tart: November 04, 2024 Dr. Izaiah Varela DO Admit Provider Active Start: November 04, 2024 Dr. Izaiah Varela DO Attending Provider Active Start: November 04, 2024 Dr. Izaiah Varela DO Other Provider Active Start: November 04, 2024 Team Status: Inactive Member Role Status Dates No Primary Care Physician Primary Care Provider Active Start: November 04, 2024 End: November 06, 2024 Dr. Julián Veliz MD Emergency Provider Active S tart: November 04, 2024 End: November 06, 2024 Dr. Izaiah Varela DO Admit Provider Active Start: November 04, 2024 End: November 06, 2024 Dr. Izaiah Varela DO Other Provider Active Start: November 04, 2024 End: November 06, 2024 Dr. Peter Toth DO Attending Provider Active Start: November 04, 2024 End: November 06, 2024 Dr. Charity Michele MD Other Provider Active Star t: November 04, 2024 End: November 06, 2024 Team Status: Active Member Role Status Dates No Primary Care Physician Primary Care Provider Active Start: November 05, 2024 Dr. Julián Veliz MD Emergency Provider Active S tart: November 05, 2024 Dr. Izaiah Varela DO Admit Provider Active Start: November 05, 2024 Dr. Izaiah Varela DO Other Provider Active Start: November 05, 2024 Dr. Charity Michele MD Attending Provider Active Start: November 05, 2024 Dr. Charity Michele MD Other Provider Active Star t: November 05, 2024 Team Status: Active Member Role Status Dates No Primary Care Physician Primary Care Provider Active Start: November 06, 2024 Dr. Julián Veliz MD Emergency Provider Active S tart: November 06, 2024 Dr. Izaiah Varela DO Admit Provider Active Start: November 06, 2024 Dr. Izaiah Varela DO Attending Provider Active Start: November 06, 2024 Dr. Izaiah Varela DO Other Provider Active Start: November 06, 2024 Dr. Charity Michele MD Other Provider Active Star t: November 06, 2024 Jackhammer Operator Relationship Specialty Start Date End Date No, Physician [facility] PCP - General 04/24/21 Jackhammer Operator Relationship Specialty Start Date End Date No, Physician [facility] PCP - General 04/24/21 Jackhammer Operator Relationship Specialty Start Date End Date No, Physician [facility] PCP - General 04/24/21 FOR RECORDS PERTAINING TO PATIENTS WHO ARE OR HAVE BEEN ENROLLED IN A CHEMICAL DEPENDENCY/SUBSTANCEABUSE PROGRAM, SOME INFORMATION MAY BE OMITTED. This clinical summary was aggregated from multiple sources. Caution should be exercised in using it in the provision of clinical care. This summary normalizes information from multiple sources, and as a consequence, information in this document may materially change the coding, format and clinical context of patient data. In addition, data may be omitted in some cases. CLINICAL DECISIONS SHOULD BE BASED ON THE PRIMARY CLINICAL RECORDS. [facility]. provides no warranty or guarantee of the accuracy or completeness of information in this document.
[2025-07-04 21:56] LABS: Anion Gap 12 (5-15); Carbon Dioxide 19.8 mmol/L (21.0-32.0); Chloride 105 mmol/L (98-108); Potassium 3.2 mmol/L (3.3-5.1)
[2025-07-04 22:29] LABS: Ketone-Dipstick 150 mg/dl (Negative)
--- NOTE | 2025-07-04 22:59 | PCM.HOSP.N ---
Hospitalist Note AG closed x1, HCO3 19.8, last fingerstick glucose 81. Currently has D5W w/30meqKCl @125ml/hr, K 3.2, Na 137, Cl 105. Changed IVF to D5 0.45NS w/40meq KCl to run @150ml/hr.
[2025-07-04] MEDS: Potassium Chloride 40 MEQ in Dext 5%-0.45% NS 1,000 ML 150 MEQ IV (23:31)
[2025-07-05] VITALS (11 sets, daily range): BP systolic 93–129; BP diastolic 51–99; PULSE 59–83; RESP 11–23; TEMP 36.9; O2SAT 98–100; BMI 26.9
[2025-07-05 01:33] LABS: Anion Gap 15 (5-15); Carbon Dioxide 18.8 mmol/L (21.0-32.0); Chloride 104 mmol/L (98-108); Magnesium 1.8 mg/dL (1.5-2.2); Potassium 3.4 mmol/L (3.3-5.1)
[2025-07-05 04:20] LABS: Hematocrit 41.1 % (40-54); Hemoglobin 14.8 g/dL (13.0-16.5); Immature Granulocytes Count 0.000 X10^3/uL (0.0-0.0); Mean Corp Hgb Conc 36.0 g/dL (32-36); Mean Corpuscular Volume 83.7 fL (80-94); Mean Platelet Vol. 8.6 fl (6.2-12.0); NRBC Flagged by Analyzer 0 % (0-5); Platelet Count 229 K/mm3 (150-450); RBC Distribution Width CV 12.5 % (11.6-14.6); RBC Distribution Width SD 37.9 fl (35.1-43.9); Red Blood Count 4.91 M/mm3 (4.6-6.2); White Blood Count 5.0 K/mm3 (4.4-11.0)
[2025-07-05 05:10] LABS: Anion Gap 12 (5-15); BUN 8 mg/dL (4-19); BUN/Creat Ratio 9.5 RATIO (10-20); Calcium,Total 8.4 mg/dL (7.6-11.0); Carbon Dioxide 17.7 mmol/L (21.0-32.0); Chloride 105 mmol/L (98-108); Estimated Creatinine Clearance 142.84 ml/min (50-250); Glucose 191 mg/dL (70-99); Magnesium 1.6 mg/dL (1.5-2.2); Potassium 3.8 mmol/L (3.3-5.1)
[2025-07-05 06:27] LABS: Anion Gap 11 (5-15); Carbon Dioxide 19.7 mmol/L (21.0-32.0); Chloride 106 mmol/L (98-108); Potassium 3.4 mmol/L (3.3-5.1)
[2025-07-05] MEDS: 0.9% Saline Lock 10 ML Syringe IV (06:31)
[2025-07-05] MEDS: Potassium Chloride 40 MEQ in Dext 5%-0.45% NS 1,000 ML 150 MEQ IV (06:33)
--- NOTE | 2025-07-05 06:38 | PCM.HOSP.N ---
Hospitalist Note AG closed x 3 with now AG trending upward as had decreased again on 2nd time of closure. Will transition from insulin drip to SC. Add ADA diet, accu checks with ISS.
[2025-07-05] MEDS: Insulin Glargine-YFGN 100 UNIT/ML Pen 25 UNIT SC (07:42)
--- NOTE | 2025-07-05 08:40 | EX.PCM.CONCC ---
HPI Consult Data Date of Consult: 07/05/25 HPI Narrative HPI Narrative: MONAE GARCÍA, is a 30 M who presents [ ] [facility] Medical History (Reviewed 07/04/25 @ 13: by Dr. Monae Ward, DO) Hyperkalemia Tobacco abuse Leukocytosis Metabolic acidosis Nausea, vomiting and diarrhea Acute dehydration Acute dehydration Abdominal pain ZAHIDA (acute kidney injury) DKA (diabetic ketoacidosis) Pyloric stenosis Type 1 diabetes Home Medications Medication Instructions Recorded Last Taken Type insulin glargine-yfgn 100 unit/mL 25 unit (0.25 mL) subcut QHS #15 mL 11/06/24 Unknown Rx (3 mL) subcutaneous pen insulin lispro 100 unit/mL 10 unit (0.1 mL) subcut TID #15 mL 11/06/24 Unknown Rx subcutaneous pen (Humalog KwikPen (U-100) Insulin) pen needle, diabetic 31 gauge x #100 ea 11/06/24 Unknown Rx 1/3" Allergy/AdvReac Type Severity Reaction Status Date / Time No Known Allergies Allergy Verified 07/04/25 10:50 Social History (Reviewed 07/04/25 @ 13: by Dr. Monae Ward, DO) Smoking Status: Heavy Smoker (>10/day) Lab / Micro Data 07/05/25 04:10 07/05/25 05:54 Labs: Laboratory Results - last 24 hr 07/04/25 11:20: WBC 6.4, RBC 5.81, Hgb 18.1 H*, Hct 50.4, MCV 86.7, MCH 31.2, MCHC 35.9, RDW Std Deviation 39.8, RDW Coeff of Willam 12.7, Plt Count 321, MPV 9.0, Immature Gran % (Auto) 0.300, Neut % (Auto) 57.9, Lymph % (Auto) 27.5, [place]arton % (Auto) 8.8, Eos % (Auto) 4.2, Baso % (Auto) 1.3 H, Absolute Neuts (auto) 3.7, Absolute Lymphs (auto) 1.76, Nucleated RBC % 0, Sodium 133, Potassium 4.3, Chloride 92 L, Carbon Dioxide 15.5 L, Anion Gap 26 H, BUN 14, Creatinine 1.22 H, Est GFR (MDRD) Non-Af 82, BUN/Creatinine Ratio 11.5, Glucose 404 H, Hemoglobin A1c 12.7 H, Calcium 9.2, Phosphorus 3.7, Magnesium 1.8, Total Bilirubin 0.58, AST 20, ALT 32, Alkaline Phosphatase 136 H, Total Protein 7.3, Albumin 4.5, Globulin 2.8, Albumin/Globulin Ratio 1.6, Lipase 33, b-Hydroxybutyric mmol/L 8.5 H 07/04/25 13:04: Urine Color Yellow, Urine Clarity Clear, Urine pH 5.0, Ur Specific [place] 1.025, Urine Protein 30 H, Urine Glucose (UA) 1000 H, Urine Ketones 150 A*, Urine Occult Blood Negative, Urine Nitrite Negative, Urine Bilirubin Negative, Urine Urobilinogen Normal, Ur Leukocyte Esterase Negative, Urine RBC 0 SEEN, Urine WBC 0-5 SEEN, Ur Squamous Epith Cells 0-5 SEEN, Urine Bacteria 0 SEEN, Fine Granular Casts 5-10 SEEN, Coarse Granular Casts 0-5 SEEN, Urine Mucus 0 SEEN 07/04/25 14:31: POC Glucose 267 H 07/04/25 16:22: POC Glucose 291 H 07/04/25 17:31: POC Glucose 293 H 07/04/25 18:02: POC Glucose 261 H 07/04/25 18:32: POC Glucose 212 H 07/04/25 19:00: POC Glucose 187 H 07/04/25 19:59: POC Glucose 143 H 07/04/25 20:34: Sodium 137, Potassium 3.2 L, Chloride 105, Carbon Dioxide 19.8 L, Anion Gap 12 07/04/25 20:36: POC Glucose 134 H 07/04/25 21:12: POC Glucose 101 07/04/25 22:07: POC Glucose 81 07/04/25 22:42: POC Glucose 79 07/04/25 23:25: POC Glucose 66 L 07/05/25 00:01: POC Glucose 76 07/05/25 00:43: Sodium 138, Potassium 3.4, Chloride 104, Carbon Dioxide 18.8 L, Anion Gap 15, Magnesium 1.8 07/05/25 01:00: POC Glucose 99 07/05/25 01:56: POC Glucose 145 H 07/05/25 03:01: POC Glucose 189 H 07/05/25 04:03: POC Glucose 188 H 07/05/25 04:10: WBC 5.0, RBC 4.91, Hgb 14.8, Hct 41.1, MCV 83.7, MCH 30.1, MCHC 36.0, RDW Std Deviation 37.9, RDW Coeff of Willam 12.5, Plt Count 229, MPV 8.6, Immature Gran % (Auto) 0.000, Neut % (Auto) 45.7 L, Lymph % (Auto) 39.6, Wharton % (Auto) 9.7, Eos % (Auto) 4.0, Baso % (Auto) 1.0, Absolute Neuts (auto) 2.3, Absolute Lymphs (auto) 1.96, Nucleated RBC % 0, Sodium 135, Potassium 3.8, Chloride 105, Carbon Dioxide 17.7 L, Anion Gap 12, BUN 8, Creatinine 0.83, Estim Creat Clear Calc 142.84, Est GFR (MDRD) Non-Af 121, BUN/Creatinine Ratio 9.5 L, Glucose 191 H, Calcium 8.4, Phosphorus 3.0, Magnesium 1.6 07/05/25 04:59: POC Glucose 190 H 07/05/25 05:53: POC Glucose 171 H 07/05/25 05:54: Sodium 137, Potassium 3.4, Chloride 106, Carbon Dioxide 19.7 L, Anion Gap 11, Phosphorus 2.7 ABG Data ABG results: ABG 07/04/25 13:27 Specimen Type CHRISTINA Sample Site Not entered VBG pH 7.32 VBG pO2 56 H VBG HCO3 13 L VBG Total CO2 14 L VBG O2 Sat (Calc) 87 H VBG Base Excess -13 L POC Mix VBG pCO2 Pt Tmp 25.7 L O2 Delivery Device Not entered
--- NOTE | 2025-07-05 10:12 | CASEMGMT ---
Social Work- SW provided printables for prescription assistance programs including [employer], [employer], a list of numerous websites, numerous paper applications for programs, and [facility]. RNCM to follow. ANDRÉS Black
--- NOTE | 2025-07-05 11:46 | CASEMGMT ---
GARO CHAUDHARI Assessment Face to Face with patient for initial transition planning/care coordination assessment. GARO CHAUDHARI introduced self and role at [facility], pt voices understanding. Pt is A&Ox4 and is resting comfortably in bed and is calm. Pt SO at bedside. Care providers, pharmacy, and demographics verified. Admitting dx: CURTIS FELIX Strata: 1 PCP: Pt states that he sees Stefany William who also helps manage his DM Specialists: Pt states this Stefany manages his DM Preferred Pharmacy: [facility] Insurance: SP. Pt states that he recently started a new job and that his insurance does not start until August. Pt states that he has not been able to afford his insulin, leading to the current admission. Barb (Pt financial cost analyst) has already seen the pt and states to this commercial underwriter that the pt is over income and that he does not qualify for CHIKIS or financial assistance. EMILY notified and has provided this commercial underwriter with multiple difference resources for the pt. Resources provided to the pt at this time. Prescription Benefit: None at this time. EMILY has provided resources. Per chart review, the pt has already used the Rx assistance program this year. LNOK: Ameenafred Fitzpatrickstacy (SO) Living Arrangements: Pt lives with his SO in a 2 story home with 4 steps to enter ADLs/IADLs: Ind Transportation: Self. SO. DME: Pt states that he has a BGM. Pt states that he does not like using continuous monitors. Pt states that he has enough ETOH swabs and lancets. Pt states that he is getting low on test strips. Pt states that he gets these at [facility] or [facility] and that he is able to afford more and declines concerns. Pt reports that he takes insulin shots and that he has enough Pen needles now. Pt states that his only concern is affording his insulin. HHC/SNF: denies Hx or needs. Pt’s goal: home Plan: Home with pt's SO with resources to help afford pt's DM medications. Pt denies the need for further assistance such as CCN. Pt denies other homegoing needs and states that he feels safe returning home with his SO at the time of DC and declines further needs at this time. Pt states that he is ready for DC. MD notified. Oc Taylor RN, CM
--- NOTE | 2025-07-05 11:59 | DCINST_ITS ---
Discharge Instructions DC O2, CPAP, BIPAP needs Home O2 Discharge instructions: No Dressing / Incision Discharge Activity: Return to Normal Activity Weight Bearing Status: Weight bearing as tolerated Dressing / Incision Call your doctor if you observe: Fever of 101 or Higher, Shortness of breath and Dizziness Follow Up Care Test Results: Test results from this visit will be discussed in further detail at your follow- up appointment, if applicable. Discharge Plan Admission Admit Date/Time: 07/04/25 13:56 Primary Reason for Your Visit: DKA Attending Provider: Vianney Sheikh Primary Care Provider: Stefany William Consulting Providers: Abdluaziz Caruso; Adán Cooley; Delvis Ramos; Jasbir Chapman; Izaiah Reyes; Lu Polanco; Sukhwinder Ocasio; Shaina Curtis; Umer Woods; Katlin Cartagena; Bryson Hardy; Brendan Sands; Sola Knutson; Rigoberto Willis; Howie Bellamy; Gil Perez; Dipti Ibanez; Celeste Zimmer; Jose Carlos Shi; Alexandrea Sears; Dorie Padilla; Peter Harrington; Sarai Rangel; Vicky Bee; Gonzalo Truong; Guillermina Ott; Sarai Rebollar; Nestor Vega; George Fine; Boni Brenner; Rl Rodriguez; David Alarcon; Chuck Johnson; Robyn Grayson; Doni Tan; Marcia Leavitt; Demetrice,Sammargaret; Junior Khan; Ha Kessler; Vivek Sims; Phillip Pelaez; Serafin Tolentino Instructions Patient Instructions: Ketoacidosis Ch Discharge Orders/Prescriptions Prescriptions: New insulin glargine [Lantus Solostar U-100 Insulin] 100 unit/mL (3 mL) insulin pen 25 unit subcut QPM Qty: 15 2RF insulin lispro [Humalog KwikPen Insulin] 100 unit/mL insulin pen 10 unit subcut TID Qty: 15 2RF Discontinued insulin glargine-yfgn 100 unit/mL (3 mL) Insulin Pen 25 unit subcut QHS Qty: 15 0RF insulin lispro [Humalog KwikPen Insulin] 100 unit/mL insulin pen 10 unit subcut TID Qty: 15 0RF No Action (DME) pen needle, diabetic 31 gauge x 1/3" needle See Rx Instructions .Route Qty: 100 0RF Rx Instructions: As directed Referrals / Follow Up: Abhijit Ritchie MD [Med Staff - Courtesy Staff, Endocrinology] - Within 1 Month Referral Note: see to establish endocrinology care Stefany William, HIGH SCHOOL HISTORY TEACHER-C [Primary Care Provider, Family Practice] - Within 1 Week Disposition Disposition (needs filled in before D/C Order can be placed): Home, Self Care
--- NOTE | 2025-07-05 12:00 | PCM.DC.SUM ---
Providers Date of Admission: 07/04/25 Date of Discharge: 07/05/25 Primary Care Physician: ADRIANNE Allred Consultations 07/04/25 15:53 Consult: Undercover Cop / Pulmonary Medicine Routine Consulting Provider: Intensivists/Pulmonary Med Reason for Consult: DKA EMERGENT Consult: No MD Notified: Yes Date Notified: 07/04/25 Time Notified: 13:59 Method of Notification: Text Reason For Visit: DKA Diagnosis Discharge Diagnosis (1) Diabetic ketoacidosis: Status: Acute Code(s): E11.10 - Type 2 diabetes mellitus with ketoacidosis without coma (2) Hyperglycemia: Status: Acute Code(s): R73.9 - Hyperglycemia, unspecified Plan #DKA in a known type I diabetic due to noncompliance with insulin Admit to ICU. Anion gap is 26 with bicarb of 15.5. Glucose is 404. Serum hydroxybutyrate is markedly elevated. Started on insulin drip per DKA protocol. Also hydrate with IV fluids per DKA protocol. Potassium is 4.3. Will manage electrolytes per DKA protocol. Consult critical care. Once blood glucose falls to below 250 and anion gap closes x 2 will transition to home dose of long-acting insulin and insulin sliding scale. Keep n.p.o. for now. DVT prophylaxis: Lovenox CODE STATUS: Full code Medications at Discharge Home Medications pen needle, diabetic 31 gauge x 1/3" #100 ea 11/06/24 insulin glargine 100 unit/mL (3 mL) subcutaneous pen (Lantus Solostar U-100 Insulin) 25 unit (0.25 mL) subcut QPM #15 mL 07/05/25 insulin lispro 100 unit/mL subcutaneous pen (Humalog KwikPen (U-100) Insulin) 10 unit (0.1 mL) subcut TID #15 mL 07/05/25 Hospital Course Operations None Procedures None Summary of Care Provided Minutes Spent on Discharge: 47 Hospital Course: MONAE GARCÍA, is a 30 M with a PMH as outlined which includes type 1 DKA who was admitted via the ED on 07/04/2025 with a complaitn of general feeling of unwellness, with associated vomiting. HE said he went to an outside hospital the day before admission and said he was put on insulin drip for a few hours and sent home. HE however did not feel well when he went home and continued to deteriorate so he came to the ED. He denied any fever, chills, chest pain, palpitations, dizziness, nausea, vomiting or any other symptoms. Review of systems was otherwise negative. He said he had been out of his long-acting insulin for about a month and a half now due to cost. Vitals in the ED were blood pressure 150/80, pulse rate of 88 and respirate rate of 16. He is saturating at 100% on room air. CBC showed hemoglobin of 18.1 with WBC of 6.4 and platelets of 321. Chemistry showed sodium of 133 with potassium of 4.3 and bicarb of 15.5. Anion gap is 26 and creatinine is 1.22. Glucose is 404. Serum hydroxybutyrate is elevated at 8.5 and ALP is 136. Urinalysis showed elevated ketones and glucose but no evidence of UTI. He was admitted to be managed for DKA in a type I diabetic due to noncompliance with insulin. He was admitted to the ICU and placed on insulin drip per DKA protocol. He was treated as per the DKA protocol. His anion gap closed x 2 and he was switched to his sq lantus of 25 units daily. Patient;s A1C was 12.7. He admitted to not taking his insulin for over a month unlike what he had previously stated. He was counseled strongly about the need to be compliant with this medication. Case management was consulted to help patient with resources in the community to help him get his insulin. He was discharged with a prescription for his lispro insulin 10 mg 3 times daily and Lantus 25 units daily. He was referred to endocrinology to establish care. He said he had lost his insurance but had a new job and so would be getting insurance by July. He was discharged home on 07/05/2025 and is follow-up with his primary care doctor in the state he was referred to endocrinology on outpatient basis. Patient was seen and examined prior to discharge. He had no active complaints and had an uneventful night. Review of systems otherwise negative. Labs and vitals reviewed. Medication reviewed and reconciled. Physical Exam Const alert, oriented x3 and no apparent distress Constitutional Narrative: looks weak General Appearance: cooperative and comfortable Orientation / Consciousness: awake HEENT normocephalic, head/scalp atraumatic, hearing grossly normal bilaterally and moist oral mucous membranes Mouth: oral and palatal mucosa normal Eyes EOMs intact bilaterally and conjunctivae normal Neck supple and no JVD Resp normal respiratory effort, no retractions, no use of accessory muscles and clear to auscultation bilaterally Cardio regular rate, regular rhythm, S1 normal heart sound, S2 normal heart sound and no murmurs GI normal to inspection, nondistended, normoactive bowel sounds, soft to palpation, non-tender and non-distended Extremity normal to inspection, full ROM and no clubbing, cyanosis or edema Skin no rashes or lesions noted Neuro oriented x3, CN's II-XII intact bilaterally, moves all extremities and no focal motor deficits Sensorium / Orientation: awake and alert Motor Exam: strength 5/5 throughout Psych affect normal Weight / BMI Weight Weight: 198 lb 6.656 oz Body Mass Index (BMI) 26.9 ABG / Lab / Microbiology Data 07/05/25 04:10 07/05/25 05:54 Laboratory: Laboratory Results - last 24 hr 07/04/25 11:20: Hemoglobin A1c 12.7 H 07/04/25 13:04: Urine Ketones 150 A* 07/04/25 14:31: POC Glucose 267 H 07/04/25 16:22: POC Glucose 291 H 07/04/25 17:31: POC Glucose 293 H 07/04/25 18:02: POC Glucose 261 H 07/04/25 18:32: POC Glucose 212 H 07/04/25 19:00: POC Glucose 187 H 07/04/25 19:59: POC Glucose 143 H 07/04/25 20:34: Sodium 137, Potassium 3.2 L, Chloride 105, Carbon Dioxide 19.8 L, Anion Gap 12 07/04/25 20:36: POC Glucose 134 H 07/04/25 21:12: POC Glucose 101 07/04/25 22:07: POC Glucose 81 07/04/25 22:42: POC Glucose 79 07/04/25 23:25: POC Glucose 66 L 07/05/25 00:01: POC Glucose 76 07/05/25 00:43: Sodium 138, Potassium 3.4, Chloride 104, Carbon Dioxide 18.8 L, Anion Gap 15, Magnesium 1.8 07/05/25 01:00: POC Glucose 99 07/05/25 01:56: POC Glucose 145 H 07/05/25 03:01: POC Glucose 189 H 07/05/25 04:03: POC Glucose 188 H 07/05/25 04:10: WBC 5.0, RBC 4.91, Hgb 14.8, Hct 41.1, MCV 83.7, MCH 30.1, MCHC 36.0, RDW Std Deviation 37.9, RDW Coeff of Willam 12.5, Plt Count 229, MPV 8.6, Immature Gran % (Auto) 0.000, Neut % (Auto) 45.7 L, Lymph % (Auto) 39.6, Lawrence % (Auto) 9.7, Eos % (Auto) 4.0, Baso % (Auto) 1.0, Absolute Neuts (auto) 2.3, Absolute Lymphs (auto) 1.96, Nucleated RBC % 0, Sodium 135, Potassium 3.8, Chloride 105, Carbon Dioxide 17.7 L, Anion Gap 12, BUN 8, Creatinine 0.83, Estim Creat Clear Calc 142.84, Est GFR (MDRD) Non-Af 121, BUN/Creatinine Ratio 9.5 L, Glucose 191 H, Calcium 8.4, Phosphorus 3.0, Magnesium 1.6 07/05/25 04:59: POC Glucose 190 H 07/05/25 05:53: POC Glucose 171 H 07/05/25 05:54: Sodium 137, Potassium 3.4, Chloride 106, Carbon Dioxide 19.7 L, Anion Gap 11, Phosphorus 2.7 07/05/25 07:38: POC Glucose 220 H 07/05/25 08:24: POC Glucose 306 H 07/05/25 11:26: POC Glucose 178 H ABG: ABG 07/04/25 13:27 Specimen Type CHRISTINA Sample Site Not entered VBG pH 7.32 VBG pO2 56 H VBG HCO3 13 L VBG Total CO2 14 L VBG O2 Sat (Calc) 87 H VBG Base Excess -13 L POC Mix VBG pCO2 Pt Tmp 25.7 L O2 Delivery Device Not entered D/C Instructions Discharge Activity: Return to Normal Activity Weight Bearing Status: Weight bearing as tolerated Call your doctor if you observe: Fever of 101 or Higher, Shortness of breath and Dizziness DC O2, CPAP, BIPAP Needs Home O2 Discharge instructions: No DC home with Oxygen: No Meaningful Use Info Meaningful Use Meaningful Use Diagnoses (Choose all that apply): None applicable Discharge Plan Admission Admit Date/Time: 07/04/25 13:56 Primary Reason for Your Visit: DKA Attending Provider: Vianney Sheikh Primary Care Provider: Stefany William Consulting Providers: Abdulaziz Caruso; Adán Cooley; Delvis Ramos; Jasbir Chapman; Izaiah Reyes; Lu Polanco; Sukhwinder Ocasio; Shaina Curtis; Umer Woods; Katlin Cartagena; Bryson Hardy; Brendan Sands; Sola Knutson; Rigoberto Ornelas; Howie Bellamy; Gil Perez; Dipti Ibanez; Celeste Zimmer; Jose Carlos Shi; Alexandrea Sears; Dorie Padilla; Peter Harrington; Sarai aRngel; Vicky Bee; Gonzalo Truong; Guillermina Ott; Saari Rebollar; Nestor Vega; Rody,George; Boni Brenner; Rl Sigala; AgnesDavid; Chuck Johnson; Robyn Grayson; Doni Tan; Marcia Leavitt; Demetrice,Sammargaret; Junior Khan; Victoria,Ha; Vivek Sims; Phillip Pelaez; Serafin Tolentino Instructions Patient Instructions: Ketoacidosis Ch Discharge Orders/Prescriptions Prescriptions: New insulin glargine [Lantus Solostar U-100 Insulin] 100 unit/mL (3 mL) insulin pen 25 unit subcut QPM Qty: 15 2RF insulin lispro [Humalog KwikPen Insulin] 100 unit/mL insulin pen 10 unit subcut TID Qty: 15 2RF Discontinued insulin glargine-yfgn 100 unit/mL (3 mL) Insulin Pen 25 unit subcut QHS Qty: 15 0RF insulin lispro [Humalog KwikPen Insulin] 100 unit/mL insulin pen 10 unit subcut TID Qty: 15 0RF No Action (DME) pen needle, diabetic 31 gauge x 1/3" needle See Rx Instructions .Route Qty: 100 0RF Rx Instructions: As directed Referrals / Follow Up: Abhijit Ritchie MD [Med Staff - Courtesy Staff, Endocrinology] - Within 1 Month Referral Note: see to establish endocrinology care Stefany William, DIANETICIST-C [Primary Care Provider, Family Practice] - Within 1 Week Disposition Disposition (needs filled in before D/C Order can be placed): Home, Self Care Charges/Coding Visit Charges Inpatient E&M: 08216 Disch Hosp >30min
--- NOTE | 2025-07-05 12:23 | CASEMGMT ---
TC to Sara as the pt has new rxs for Insulin Glargine and Insulin Lispro. Sara states that [facility] was able to bring the costs down to 70$ for the Glargine and 168$ for the Lispro. RN CM to the pt's room at this time. Pt states that he is OK with this. Pt encouraged to utilize the resources that were provided by . Pt states understanding and denies any further DC needs. Pt's RN updated.
--- NOTE | 2025-07-05 12:25 | PHA.DC.COU.R ---
Pharmacy [facility] has performed discharge medication counseling for this patient. The patient was counseled on the following discharge medications and changes in medications for homegoing review. - Insulin Lispro pen, Insulin Glargine pen The Reason for Use, instructions for use, and potential side effects were reviewed for all new medications. The patient's questions regarding all of their medications were answered. The patient was able to verbally demonstrate an understanding of their discharge medications. Medications at Discharge Home Medications pen needle, diabetic 31 gauge x 1/3" #100 ea 11/06/24 insulin glargine 100 unit/mL (3 mL) subcutaneous pen (Lantus Solostar U-100 Insulin) 25 unit (0.25 mL) subcut QPM #15 mL 07/05/25 insulin lispro 100 unit/mL subcutaneous pen (Humalog KwikPen (U-100) Insulin) 10 unit (0.1 mL) subcut TID #15 mL 07/05/25
== END 2025-07-05 13:30 | disposition home or self-care (01) | DRG 639 ==
LOC: ED 13:48 → ICU 14:03
PROVIDERS: Admitting Provider Student in an Organized Health Care Education/Training Program; Emergency Provider Emergency Medicine; PCP Nurse Practitioner Acute Care; Visit Provider Student in an Organized Health Care Education/Training Program
DX: E10.10 Type 1 diabetes mellitus with ketoacidosis without coma (principal); F17.210 Nicotine dependence, cigarettes, uncomplicated; Z79.4 Long term (current) use of insulin; Z91.199 Patient's noncompliance with other medical treatment and regimen due to unspecified reason
CPT/HCPCS: 80048; 80051; 80053; 81001; 82010; 82803; 82962; 83036; 83690; 83735; 84100; 85025; 93005; 99282; A4216